=== PATIENT | male | born 1960 | race Caucasian/White ===

== ENCOUNTER 2024-08-24 13:32 | Inpatient (IN) | payer MEDICARE, SELFPAY ==
--- OUTSIDE RECORDS SUMMARY | 2012-03-09 08:50 | XMS_ITS | Encounter Summary ---
Author Organization [facility] Address [address] [place] [address] Care Team Providers Care Supply Chain Tech Name Role Phone Len Aguilera MD Primary Care Provider [phone] Encounter Details Date Type Department Care Team (Late st Contact Info) Description 03/09/2012 7:50 AM EST Hospital Encounter [facility] [address] [id number] Len Aguilera MD [address] [place] [address] Social History Tobacco Use Types Packs/Day Years Used Date Smoking Tobacco: Every Day Cigarettes 1 41.5 Started: 1983 Smokeless Tobacco: Never Alcohol Use Standard Drinks/Week Comments Not Currently 28 (1 standard drink = 0.6 oz pu re alcohol) Sex and Gender Information Value Date Recorded Sex Assigned at Not on file Legal Sex Male 10:06 AM EST Gender Identity Not on file Sexual Orientation Not on file COVID-19 Exposure Response Date Recorded In the last 10 days, have yo u been in contact with someone who was confirmed or suspected to have Coronavirus/COVID-19? No / Unsure 09/04/2021 11:38 AM EDT documented as of this encounter Plan of Treatment Not on file documented as of this encounter Visit Diagnoses Not on filedocumented in this encounter Additional Health Concerns Infection Onset Date Last Indicated Resolved Time C-diff Rule Out 09/06/2021 09/06/2021 09/06/2021 4 :07 PM EDT C-diff (Clostridium difficile) 09/06/2021 09/06/2021 documented as of this encounter Care Teams Supply Chain Tech Relationship Specialty Start Date End Date Len Aguilera MD [address] [place] [id number] PCP - General 03/07/12 01/17/21 documented as of this encounter
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
--- OUTSIDE RECORDS SUMMARY | 2020-12-17 04:56 | XMS_ITS | Continuity of Care Document ---
Author Organization [facility] Address [address] [place] [phone] Phone Care Team Providers Care Manager Of Project Management Name Role Phone Elinor Donovan Unavailable Unavailable [...] Diagnoses Date Provider Providers Copied on Encounter [facility], [address] [place] [address], [id number], [place] tel:[phone] [facility] No Information Jason Aldrich. [address] [place], [address], [place]. tel:[phone] OFFICE/OUTPAT IENT VISIT, [facility], [address], [place], [id number], [place] tel:[phone] JACKLYN Yrn interested in Vivitrol (chief complaint) Alcohol dependence [place] CARLOZ Aldrich. [address] [place], [address], [place]. tel:[phone] Family History Family Member Type Diagnosis Age At Onset Mother Problem hypertension Father Problem stroke Mother Problem heart disease Payers Payer name Insurance type Covered libertarian ID Authoriza tirosibel(s) Medicaid [facility] [id number] Social History Type Description Quantity Date Captured [...] being treated by Dr Montana, neurology, from [place] who has him on Keppra and Vimpat for seizures. reports that patient went to [facility] for detox for 3 days end of November. When released, talked to Chris martinez who refused to take patient due to the history of seizures. Was going to call [facility], but spoke to Dr Turpin who advised he start the Vivitrol program through [facility]. Had labs drawn there recently as well as in [facility]. reports that he had good liver enzymes.States [...] [facility]. Would prefer to use [place] instead for counseling services. Eugenia, [employer] Functional Status Date Functional Assessmen t No Information Instructions Date Instruction Additional Infor hammad 1. Initiate counseli ng2. Take oral naltrexone daily until Vivitrol ready, hold on day of injection. 3. No opioid use, stop/decrease alcohol use4. Await call from [facility] nurse, call if no communication within 2 weeks. 5. Continue f/u and care with PCP and neurology Related to Alcohol dependence Assessments Type Assessment Date No Information Patient Care Teams Name Effective Dates (start - stop) Status Members No Information
--- OUTSIDE RECORDS SUMMARY | 2024-03-19 07:00 | XMS_ITS ---
Author Organization [facility] Address [address] [place] [address] Care Team Providers Care Cna Hha Name Role Phone Glenna Hong Primary Care Provider [phone] Chey IgnacioKyungAlysa J Carlos [phone] REASON FOR VISIT 45 MIN PER KH Encounters Encounter Location Date Provider Diagnosis [facility] [address] [place] [address] 03/19/2024 Alysa Ignacio Plan Of Treatment Next Appt Details Provider Name:Glenna Hong, 0 08/30/2024 11:15:00 AM, [address] [place], [address], Progress Notes * SARAY CLEMONS ADOB: (63 yo M)Acc No.[id number]:03/19/2024 Patient: Soren SARAY CARRANZA Provider: Samuel Ignacio :1960 A ge:63 Y S ex:Male Date:03/19/2024 Address:[place] [address] [facility] Pcp:Glenna Hong Subjective: * Chief Complaints: * 1 . 45 MIN PER KH. * Medical History: Objective: * Vitals: Assessment: Plan: * Treatment: * Images: * Electronic signature of Eda elaine Mateus on 08/28/2024 at 12:36 PM EDT Sign off status: Pending * Provider: Samuel Ignacio Date: 0 03/19/2024 Generated for Jamie valentine/Onur/eTransmitting on: 0 08/28/2024 12:36 PM EDT
--- OUTSIDE RECORDS SUMMARY | 2024-07-31 06:33 | XMS_ITS | Encounter Summary ---
Author Organization [facility] Address [facility] [place] [address] Care Team Providers Care Hotbed Operator Name Role Phone Enoch Aguirre Unavailable [phone] Oswaldo Turpin Primary Care Provider [phone] Dione Montoya DO Unavailable Source Comments In the event this information is protected by the Federal Confidentiality of Alcohol and Drug AbusePatient Records regulations: The Federal rules restrict any use of the information to criminally investigate or prosecute any alcohol or drug abuse patient.[facility] Reason for Referral * MRI/CT (Routine) - New Request Specialty Diagnoses / Procedures Referred By Chato t Referred To Contact CT IMAGING Diagnoses Subarachnoid hemorrhage (HCC) Procedures CT BRAIN WO IVCON CT HEAD/BRAIN W/O CONTRAST MATERIAL Padmini Mccain PA-C [address] [place] [id number] Phone: tel: fax: CT IMAGING [facility] Referral ID Status Reason Start Date Expiration Date Visits Requested Visits Authorized [id number] New Request Auto-Generat ed Referral 08/18/2024 09/03/2025 1 1 Reason for Visit * Auth/Cert (Routine) Specialty Diagnoses / Procedures Referred By Chato t Referred To Contact Diagnoses Subarachnoid hemorrhage (HCC) Traumatic SAH Procedures [address] [place] [address] IP/OBS CARE HIGH MDM 75 MINUTES [facility] Intensive Care - SICU [address] [place] [address] Phone: tel: Referral ID Status Reason Start Date Expiration Date Visits Re quested Visits Authorized [id number] 1 1 Encounter Details Date Type Department Care Team (Latest Contact Info) Description 07/31/2024 6:33 AM EDT - 08/15/2024 3:53 PM EDT Hospital Encounter [facility] [address] [place] [id number] Dru Lorenzana MD [address] [place] [address] [place] [address] [place] [address] Traumatic SAH Discharge Disposition: Penitentiary Facility Social History Tobacco Use Types Packs/Day Years Used Date Smoking Tobacco: Every Day Cigarettes Smokeless Tobacco: Never Comments:1.0ppdx since 1986 Alcohol Use Standard Drinks/Week Comments Yes 8 (1 standard drink = 0.6 oz pure alcohol) occ during football games/cook outs [facility] Utilities Answer Date Recorded In the past 12 months has e [employer], gas, oil, or water [employer] threatened to shut off services in your home? No 08/02/2024 PHQ-2 Answer Date Recorded PHQ-2 score 5 05/16/2021 Hunger Vital Sign Answer Date Recorded Within the past 12 months, y ou worried that your food would run out before you got the money to buy more. Sometimes true Within the past 12 months, t he food you bought just didn't last and you didn't have money to get more. Never true PRAPARE - Transportation Answer Date Re corded In the past 12 months, has l ack of transportation kept you from medical appointments or from getting medications? No 07/06 In the past 12 months, has l ack of transportation kept you from meetings, work, or from getting things needed for daily living? No 08/02/2024 Housing Stability Vital Sign Answer Pascual e Recorded In the last 12 months, was t here a time when you were not able to pay the mortgage or rent on time? No 08/02/2024 In the past 12 months, how m any times have you moved where you were living? 0 08/02/2024 At any time in the past [facility] were you homeless or living in a assisted (including now)? No 08/02/2024 Area Deprivation Index Answer Date Moisés rded National Score (1-100), lower number is lower ri sk 55 07/28/2022 State Score (1-10), lower number is lower risk 3 07/28/2022 Data from: https://www.neighborhoodatlas.medicine.[facility].edu/. Last address used for calculation [address] 07/28/2022 Sex and Gender Information Value Date Recorded Sex Assigned at Male 03/30/2021 7:16 AM EST Legal Sex Male 1:02 PM EDT Gender Identity Male 03/30/2021 7:16 AM EST Sexual Orientation Straight 03/30/2021 7: 16 AM EST documented as of this encounter Last Filed Vital Signs Vital Sign Reading Time Taken Comments Blood Pressure 123/79 08/15/2024 11:22 AM EDT Pulse 113 08/15/2024 11:22 AM EDT Temperature 36.3 C (97.3 F) 08/15/2024 11:22 AM EDT Respiratory Rate 16 08/15/2024 11:22 AM EDT Oxygen Saturation 95% 08/15/2024 11:22 AM EDT Inhaled Oxygen Concentration - - Weight 60.3 kg (132 lb 15 oz) 08/02/2024 5:45 AM EDT Height 175 cm (5' 8.9 ) 07/31/2024 12:00 PM EDT Body Mass Index 19.69 07/31/2024 12:00 PM EDT documented in this encounter Functional Status * Are you deaf or do you have serious difficulty hearing? Answer Date of Assessment Author No 08/15/2024 3:50 PM EDT Kaylin Garcia RN * Are you blind or do you have serious difficulty seeing, even when wearing glasses? Answer Date of Assessment Author No 08/15/2024 3:50 PM EDT Kaylin Garcia RN * Do you have serious difficulty walking or climbing stairs? Answer Date of Assessment Author Yes 08/15/2024 3:50 PM EDT Kaylin Garcia RN * Do you have difficulty dressing or bathing? Answer Date of Assessment Author Yes 08/15/2024 3:50 PM EDT Kaylin Garcia RN * Because of a physical, mental, or emotional condition, do you have difficulty doing errands alone such as visiting a doctor's office or shopping? Answer Date of Assessment Author Yes 08/15/2024 3:50 PM EDT Kaylin Garcia RN documented as of this encounter Mental Status * Because of a physical, mental, or emotional condition, do you have serious difficulty concentrating, remembering, or making decisions? Answer Entry Date Author Yes 08/15/2024 3:50 PM EDT Kaylin Garcia RN documented in this encounter Discharge Summaries * Raiza Bates APRN.KENO WRITER - 08/15/2024 10:02 AM EDT Images from the original note were not included. DISCHARGE SUMMARY PATIENT NAME: Saray Corbin ADMISSION DATE: 07/31/2024 DISCHARGE DATE. August 15, 2024 ATTENDING PHYSICIAN: Dylon Ochoa MD Code Status: Full Code Highest Readmission Risk Score: 14 The 30 day readmissions risk score is derived from an internally validated risk model which evaluates patient level characteristics, utilization history, medication orders and lab results up until the day of discharge. Patients with a score of 39 or above are considered highest risk for readmission. Specific patient level drivers will be listed at the bottom of the summary. The 30 day readmissions risk score is derived from an internally validated risk model which evaluates patient level characteristics, utilization history, medication orders and lab results up until the day of discharge. Patients with a score of 40 or above are considered highest risk for readmission. Specific patient level drivers will be listed at the bottom of the summary. The Reason I was in the Hospital/Main Diagnosis: TBI Diagnosis: Active Hospital Problems Cystitis Traumatic encephalopathy Vocal cord dysfunction Hyponatremia Alcohol abuse Closed fracture of multiple ribs of right side Closed fracture of body of sternum Syncope and collapse Subarachnoid hemorrhage (HCC) Diabetes mellitus type 2, controlled, without complications (HCC) Anticoagulated On mechanically assisted ventilation (HCC) History of seizures Anxiety and depression Stroke (HCC) LUZ (obstructive sleep apnea) HLD (hyperlipidemia) Stress-induced cardiomyopathy Pharyngeal dysphagia Refeeding syndrome Severe protein-calorie malnutrition (HCC) Resolved Hospital Problems No resolved problems to display. Summary of What Happened When in the Hospital: You were admitted for TBI. 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 Pt reports she was getting up to let the dogs outside and when she came back in she found pt on the floor and unresponsive. Appears to have hit his head on the corner of a marble coffee table. + head strike,+ LOC about 5-7 minutes prior to calling EMS, - AC use. reports pt was stiff and unable to layhim flat to start CPR, although no clear loss of pulse. Pt was transported to an OSH ED, per reports was nodding his head to questions but was intubated for airway protection. Trauma imaging revealed: - Traumatic right SAH - Left lateral IVH - Bilateral occipital horn and 4th ventricle hemorrhage - Right maxillary sinus hematoma - Right elbow abrasion - Right temporal abrasion CTA was also completed with nothing acute per report. Pt was transferred to and admitted to [facility] further trauma management. NSGY was consulted and repeat head CT was completed which was stable. Pt given keppra 1g BID. After conversation with spouse, she reported pt has had numerous falls lately with dizziness and syncope. Fell about 2 weeks ago and thinks he fractured his ribs but refused to seek treatment. Further imaging ordered and revealed: - Acute vs subacute right 9-12th non displaced posterior rib fractures - Sub acute sternal fracture - Trace right pleural effusion - Incidental RUL 17 mm nodule Patient was seen at bedside this AM just after extubation. Pt is drowsy, opens eyes to name. Oriented x 1, moves all extremities but noted right arm and right leg weakness. Follows some commands, unable to assess facial droop. Tertiary complete without further traumatic injuries identified. BEM on without evidence of seizures. Awaiting syncope work up. Will need speech, PT and OT evals. Appreciate further NSGY recommendations. 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 Suspect mentation is going to be slow to improve/recover and not able to guess as to how much recovery he will gain after TBI Transitions of Care Critical Issues: NEW BASELINE FOR PATIENT: TBI , follow up ENT, Neurosurgery LABS AND PROCEDURES PENDING AT DISCHARGE: No pending results. OPERATIONS DURING HOSPITALIZATION: None PROCEDURES DURING HOSPITALIZATION: Echocardiogram, EKG, MRI, and corpak- MBSS Additional Provider to Provider Information: Principal Problem: Subarachnoid hemorrhage (HCC) (POA: Yes) Active Problems: Severe protein-calorie malnutrition (HCC) (POA: Yes) Pharyngeal dysphagia (POA: Yes) Stress-induced cardiomyopathy (POA: Yes) Refeeding syndrome (POA: Yes) History of seizures (POA: Yes) Stroke (HCC) (POA: Yes) Anxiety and depression (POA: Yes) LUZ (obstructive sleep apnea) (POA: Yes) HLD (hyperlipidemia) (POA: Yes) Diabetes mellitus type 2, controlled, without complications (HCC) (POA: Unknown) Anticoagulated (POA: Unknown) On mechanically assisted ventilation (HCC) (POA: Unknown) Closed fracture of multiple ribs of right side (POA: Yes) Closed fracture of body of sternum (POA: Yes) Syncope and collapse (POA: Yes) Alcohol abuse (POA: Yes) Vocal cord dysfunction (POA: Unknown) Hyponatremia (POA: Unknown) Traumatic encephalopathy (POA: Clinically Undetermined) Cystitis (POA: No) Resolved Problems: * No resolved hospital problems. * Consulting Teams During Hospitalization: Treatment Team: Attending Provider: Dylon Ochoa MD Consulting: Susanna Lima MD Consulting: Keith Euceda MD Consulting: Karlos Dumont MD Additional Health Information I Need to Know After I Leave the Hospital: corpak tube feeds FOLLOW-UP APPOINTMENTS ALREADY SCHEDULED WITH A [facility] PROVIDER Future Appointments Date Time Provider Department Center 08/26/2024 2:15 PM Keith Euceda MD [facility] 08/28/2024 12:00 PM Padmini Mccain PA-C [facility] Discharge Information Row Name ED to Hosp-Admission (Current) from 07/31/2024 in [facility] x 123 ADDITIONAL FOLLOW-UP APPOINTMENT(S) REQUESTED ENT, Neurosrgery DISCHARGE MEDICATION: Medication List START taking these medications acetaminophen 325 mg tablet Commonly known as: TYLENOL 2 tablets by ORAL/FEEDING TUBE route every 6 hours as needed for pain. folic acid 1 mg tablet 1 tablet once daily. heparin 5,000 unit/mL injection Inject 1 mL subcutaneously every 12 hours for 7 days. insulin lispro 100 unit/mL injection Commonly known as: HumaLOG ADMINISTER CORRECTIONAL INSULIN REGARDLESS OF MEAL OR NUTRITION INTAKE Scale 2 If Blood Glucose (mg/dL) is: Less than 110 Give 0 units 111-150 Give 0 units 151-200 Give 2 units 201-250 Give 4 units 251-300 Give 6 units 301-350 Give 8 units 351-400 Give 10 units Greater than 400 Give 10 units and Notify Provider Notify provider if 2 consecutive blood glucose values in the previous 24 hours are greater than 250mg/dL and there have been no changes to the insulin regimen in the previous 24 hours. metoprolol tartrate (short acting) 25 mg tablet Commonly known as: LOPRESSOR 1 tablet by ORAL/FEEDING TUBE route every 12 hours. ondansetron 4 mg tablet Commonly known as: ZOFRAN 1 tablet by CORPAK route every 6 hours as needed. oxyCODONE IR 5 mg immediate release tablet Commonly known as: ROXICODONE 0.5 tablets by ORAL/FEEDING TUBE route every 6 hours as needed for up to 5 days. thiamine 100 mg tablet Commonly known as: VITAMIN B1 1 tablet by ORAL/FEEDING TUBE route once daily. CHANGE how you take these medications QUEtiapine 50 mg tablet Commonly known as: SEROquel 1 tablet by ORAL/FEEDING TUBE route daily at bedtime. What changed: medication strength how much to take how to take this when to take this additional instructions CONTINUE taking these medications dapagliflozin propanediol 10 mg tablet Commonly known as: FARXIGA INV NITROGLYCERIN SUBLINGUAL 0.4 mg SL TABLET (IRB 23-702) pantoprazole DR 40 mg tablet Commonly known as: PROTONIX rosuvastatin 20 mg tablet Commonly known as: CRESTOR sacubitril-valsartan 24-26 mg tablet Commonly known as: ENTRESTO SLOW-MAG ORAL spironolactone 25 mg tablet Commonly known as: ALDACTONE STOP taking these medications clopidogrel 75 mg tablet Commonly known as: PLAVIX Cyclobenzap and Irritant Cntr Irr2 10 mg Kit escitalopram oxalate 10 mg tablet Commonly known as: LEXAPRO escitalopram oxalate 20 mg tablet Commonly known as: LEXAPRO fluconazole 100 mg tablet Commonly known as: DIFLUCAN melatonin 10 mg Tab metoprolol succinate ER 50 mg 24 hr tablet Commonly known as: TOPROL XL pregabalin 75 mg capsule Commonly known as: LYRICA sildenafil 100 mg tablet Commonly known as: VIAGRA SUMAtriptan 50 mg tablet Commonly known as: IMITREX tamsulosin 0.4 mg Commonly known as: FLOMAX traMADol 50 mg tablet Commonly known as: ULTRAM Discharge Physical Exam: VITAL SIGNS: BP 109/68 Pulse 89 Temp 36.4 ??C (97.5 ??F) (Oral) Resp 16 Ht 175 cm (5' 8.9 ) Wt 60.3 kg (132 lb 15 oz) SpO2 100% BMI 19.69 kg/m?? Genl: Appears age appropriate. Restless without purposeful-appearing mobility of extremities. Head/Face: Normocephalic. Resolving right temporal abrasion Eyes: PERRLA. EOMI. Sclera not icteric ENMT: External auditory canals clear. Oropharynx is clear. Nasopharynx is clear. Neck: No mid-line masses. No bruits. No LAD. C-spine non-tender. Back: T & L Spine non-tender, no step-offs noted. No flank tenderness. Resp: Breathing is easy and unlabored. No adventitious lung sounds. Equal air entry throughout all lobes. No stridor, retractions, or accessory muscle use. CVS: RRR. No murmur, rub, gallop. 2+ pulses at RA, DP, PT bilat. GI: Abdomen is soft, non-tender, not distended. Bowel sounds normal. Right nare corpak in place MSK: Extremities without clubbing, cyanosis, edema. Normal ROM x 4. Skin: Warm and dry. No lesions of concern. Not jaundiced. Resolving right elbow abrasion Neuro: A&Ox 2-3, Following commands. Thought process is slow, but seems much more lucid than previous days. GCS 14 (E4, V4, M6 - -[address] confusion). Psych: AMS changes INFORMATION PROVIDED TO PATIENT: WOUND/SURGICAL SITE CARE: None The patient's risk for 30-day readmission is determined using the following contributing factors: The patient's risk for 30-day readmission is determined using the following contributing factors: Predictive Model Details 11% (Low) Factor Value Calculated 08/15/2024 05:23 20% Hospital Unit [facility] READMISSION RISK Model -15% Andrew Scale 13 -13% [facility] 13% Discharge Disposition [facility] 10% Diagnosis Count 34 -9% Admissions (365d) 1 -9% ED visits (365d) 0 -8% Creatinine (Min) 0.45 7% Facility [facility] 7% Sodium (Avg) 134.17 Plan of care discussed with: Provider, RN, Patient. I have performed the [id number] and relevant services for a total of >30 minutes. SIGNATURE: Raiza Bates APRN.MODESTA DATE: August 15, 2024 TIME: 10:02 AM Cosigned by Dylon Ochoa MD at 08/15/2024 11:46 AM EDT Associated attestation - Dylon Ochoa MD - 08/15/2024 11:46 AM EDT Dylon Ochoa MD documented in this encounter Discharge Instructions * Discharge Instr - Other Orders* Raiza Bates, MARIZA.KENO WRITER - 08/04/2024 8:26 AM EDT Neurosurgery Discharge Instructions A follow up CT Brain has been ordered for you. Please call to schedule in 2 weeks orbefore your follow up appointment. What is Subdural Hematoma (SDH)? A subdural hematoma (s?b?du?r???l h???m??t???m?) is a collection of blood that accumulates inside the skull but outside the brain. The bleeding occurs within the layers of tissue that surround the brain. It collects under the brain's tough outer wrapper known as the dura. The blood is then described as being sub (under) -dural. Who is at high risk to develop SDH? People with the following conditions have an increased risk for having a subdural hematoma: ? Old age - this is the leading risk factor for having SDH's ? Taking a daily aspirin or anticoagulation therapy ? Blood clotting disorder ? Alcohol abuse ? Frequent falls ? History of repeated head injuries ? Having an intracranial shunt What are the symptoms of SDH? Acute subdural hematomas often follow head trauma forceful enough to temporarily knock someone unconscious. Other associated symptoms include: ? Severe headaches ? Dizziness ? Changes in vision, speech, or mental clarity ? Seizures ? Nausea and vomiting ? Weakness on one side of the body What is the outlook (prognosis)? Outcomes are difficult to predict because they depends on many factors such as the size, location, and the patient's health before the injury. The factor that all the best outcomes have in common is time. Early detection and intervention are essential for limiting lasting damages. This is why it isimportant to call your doctor after a fall. How can I prevent or avoid SDH damage? Preventing falls and head injuries is the most effective way to prevent SDH and the damage it causes. Using safety equipment such as seat belts, cycling helmets and walking canes greatly helps to reduce the risk. Older people in particular must be careful to avoid falls. If you experience a head injury, be sure to have a doctor evaluate it promptly. This is especially important if there was a loss of consciousness or if you have any of the risk factors listed on pages 2-3. If you personally receive a significant blow to the head, ask someone keep an eye on you. Even if you feel fine initially, symptoms may develop later. Also, the impact may cause memory loss, Please follow up with your Neurosurgeon office Dr Ewing in 2 weeks. call for an appointment Primary Contact Information Phone Fax E-mail Address [phone] Not available Not available [address] [place] [phone] Specialties Neurosurgery, Spine [place] Stop taking your Plavix , You will be told by Neurosurgery when to resume at your post discharge appointment documented in this encounter Medications at Time of Discharge QUEtiapine (SEROQUEL) 50 mg tablet 1 tablet by ORAL/FEEDING TUBE route daily at bedtime. 5 acetaminophen (TYLENOL) 325 mg tablet 2 tablets by ORAL/FEEDING TUBE route every 6 hours as needed for pain. 5 folic acid 1 mg tablet 1 tablet once daily. 02 5 insulin lispro 100 unit/mL injection ADMINISTER CORRECTIONAL INSULIN REGARDLESS OF MEAL OR NUTRITION INTAKE Scale 2 If Blood Glucose (mg/dL) is: Less than 110 Give 0 units 111-150 Give 0 units 151-200 Give 2 units 201-250 Give 4 units 251-300 Give 6 units 301-350 Give 8 units 351-400 Give 10 units Greater than 400 Give 10 units and Notify Provider Notify provider if 2 consecutive blood glucose values in the previous 24 hours are greater than 250 mg/dL and there have been no changes to the insulin regimen in the previous 24 hours. 5 metoprolol tartrate, short acting, (LOPRESSOR) 25 mg tablet 1 tablet by ORAL/FEEDING TUBE route every 12 hours. 180 tablet 5 ondansetron (ZOFRAN) 4 mg tablet 1 tablet by CORPAK route every 6 hours as needed. 5 thiamine (VITAMIN B1) 100 mg tablet 1 tablet by ORAL/FEEDING TUBE route once daily. 5 dapagliflozin propanediol (FARXIGA) 10 mg tablet Take 10 mg by mouth daily with breakfast. INV NITROGLYCERIN 0.4 MG SUBLINGUAL TABLET (IRB 23-702) Dissolve 0.4 mg under the tongue one time only. Place tablet under tongue and allow to dissolve; do not chew or break. For Investigational Drug Use Only. PI: Teena Carrillo MD. rosuvastatin (CRESTOR) 20 mg tablet Take 20 mg by mouth once daily. sacubitril-valsart an (ENTRESTO) 24-26 mg tablet Take 1 tablet by mouth two times a day. magnesium chloride (SLOW-MAG ORAL) Take 1 % by mouth as needed. spironolactone (ALDACTONE) 25 mg tablet Take 12.5 mg by mouth once daily. Take 0.5 tablets (12.5 mg) by mouth once daily pantoprazole DR (PROTONIX) 40 mg tablet Take 40 mg by mouth once daily. 1 heparin 5,000 unit/mL injection Inject 1 mL subcutaneously every 12 hours for 7 days. 14 mL 5 08/22/19 25 oxyCODONE IR (ROXICODONE) 5 mg immediate release tablet 0.5 tablets by ORAL/FEEDING TUBE route every 6 hours as needed for up to 5 days. 0 5 08/20/19 25 documented as of this encounter Progress Notes * Sabra Gray, JOI-SANDING MACHINE OPERATOR OR TENDER - 08/15/2024 2:22 PM EDT Speech Therapy Treatment SERVICE DATE: 08/15/2024 SERVICE TIME: 1404 to 1416 ROOM: [place] [id number] IMPRESSION Patient seen for follow-up treatment targeting oropharyngeal dysphagia. Evidence of: Oropharyngeal dysphagia An elevated risk for aspiration: Yes Swallow Efficiency: Impaired RECOMMENDATIONS Diet Recommendations NPO with alternative means of nutrition Patient may have ice chips for comfort if cleared by physician under the following conditions: Aggressive oral care prior to ice chips (brush teeth, tongue, roof of mouth, gums, etc) Ice chips given under supervision of RN/PCNA Administer 1 ice chip at a time Swallow Strategy Recommendations Rigid Oral Hygiene Nursing Recommendations Routine Rigid Oral Hygiene, Allowance for ice chips Recommended Consults ENT (recommended from MBSS 08/05/24) Response to Therapy Interventions: Good participation in activities, Confusion interferes with education, Requires additional time/repetition, Needs frequent redirection Rehabilitation Precautions: Aspiration Precautions, Dysphagia, Cognitive Linguistics Deficits DISCHARGE RECOMMENDATIONS Recommended Discharge Disposition: Subacute/SNF Recommended Discharge Disposition Comments: dysphagia Tx Justification for Recommended Discharge Disposition: Continued skilled SANDING MACHINE OPERATOR OR TENDER care recommended after hospital discharge for:, Patient requires daily, facility- based rehabilitation from at least one discipline due to:, dysphagia requiring frequent assessment and diet modification, ongoing instrumental swallow assessment needs CURRENT HOSPITAL COURSE Patient was transferred from [facility] as a Trauma II following a recent fall at home wherehe hit his right evangelical on a countertop with +LOC. Patient presents wtih a traumatic subarachnoid hemorrhage. 08/01: Brain MRI: Small focus of diffusion restriction posterior LEFT aspect of the patsy as above. Stable intraventricular blood products. 08/01: Chest CT: 1. Acute versus subacute posterior RIGHT 9th-12th rib fxs. 2. Subacute appearing transverse sternum fracture. 3. Trace RIGHT pleural effusion. 4. Mild centrilobular emphysema. 5. Incidental 17 mm groundglass nodule in the RIGHT upper lobe. Recommend follow-up chest CT in 6-12 months. 6. Hepatic steatosis. 08/05: dobhoff tube in place;08/[address], plans for PEG tomorrow; 08/08 bilateral mitts; CT chest notes resolving thrombus, mildly improved hemorrhage; 08/15 Planning for discharge today. Reason for Speech Therapy Consult: Swallow evaluation 2* patient failing the RN swallow screen and due to recent intubation 07/31-08/01/24. In addition, cognitive evaluation recommended 2* patient suffering a recent fall with +LOC and Dx of a subarachnoid hemorrhage. Relevant Past Medical History: Oropharyngeal Dysphagia, HTN, Alcohol Abuse, Anemia, Stroke, COPD, CHF, Pancreatitis, Adult respiratory distress syndrome, Arthritis, CAD, Depression, Anxiety, GERD, Seizure, s/p Tracheostomy (2022), Stroke with residual lower weakness, LUZ HOME ENVIRONMENT / PRIOR FUNCTIONAL LEVEL Prior Functional Level: Required Assistance Patient Lives With: Spouse Assistance Required With: Transportation, Medication Management, Meals Assistance Available: Unable to determine at this time Prior Swallowing Function/Diet Textures: Regular Consistency, Thin Liquids IDDSI Level 0 SUBJECTIVE Patient participated well in treatment. Patient terminated session early due to wishing to rest. THERAPY DIAGNOSIS Dysphagia, oropharyngeal phase TREATMENT INTERVENTIONS Dysphagia Therapy (77012) Skilled Treatment Time (minutes): 12 TRAINING AND EDUCATION PROVIDED IN Caregiver Education, Dietary Consistencies, Dysphagia Management, Results and Recommendations of Session, Oral-Motor Strengthening / Range of Motion THERAPEUTIC SKILLS USED Education on role of discipline / importance of activity, Instruction in self- monitoring / self-assessment, Modified behavior for increased success, Verbal cuing OBJECTIVE Current Status Oral Hygiene: Tongue / cheek coating, Oral Health Assessment Tool (OHAT) Dentition: Miscellaneous Missing Teeth Current Feeding Method: Small Bore Feeding Tube Current Diet Textures: NPO with alternative means of nutrition/hydration/medication Current Level Of Communication: Verbal Current Management Of Secretions: Able to self-manage, Strong cough Oral Motor Exam: Within Functional Limits Except Facial Symmetry Impaired: Left Labial Assessment: Generalized weakness, Reduced sensory awareness, Xerostomia Labial ROM Impaired: Left Labial Strength Impaired: Left Lingual Assessment: Generalized weakness, Xerostomia Lingual ROM Impaired: Left Lingual Strength Impaired: Bilateral Jaw Range of Motion: Limited ROM Palatal Elevation: (uanble to assess 2* poor jaw ROM) SWALLOW ASSESSMENT Position Of Patient During Assessment: Upright In Bed Feeding Method: SANDING MACHINE OPERATOR OR TENDER Fed Patient Consistencies Presented: Ice Chips Ice Chips Pharyngeal Phase: Throat Clearing- Immediate Pharyngeal Exercises: Effortful Swallow Effortful Swallow Number of Repetitions/Cuein repetitions with verbal cues. Encouraged patient to complete more repetitions, however he wished to rest. GOALS SWALLOWING: Patient / Caregiver will demonstrate knowledge of taught compensatory strategies and dietary consistency recommendations to optimize functional swallow function without overt clinical signs and symptoms of aspiration or dysphagia Speech Rehab Potential: Fair Fair Rehab Potential Due To: Decreased motivation, Learning impairments/ poor understanding of deficits Progress Toward Goals: Progressing slower than expected Patient /Caregiver Goals: Patient Unable To State/Report, Family Not Available At Bedside ACUTE CARE TREATMENT PLAN ST Frequency: 3 Times Per Week Treatment Interventions: Dysphagia Management Plan of Care Developed with: Patient, Nurse Plan for next visit: Continue per POC SIGNATURE: ANGELO ScalesSANDING MACHINE OPERATOR OR TENDER PATIENT NAME: Saray Corbin DATE: August 15, 2024 TIME: 2:22 PM * Teena Andrews OT/L - 08/15/2024 11:05 AM EDT Occupational Therapy Treatment Summary SERVICE DATE: 08/15/2024 SERVICE TIME: 1046 to 1056 ROOM: [place] [address] OT 6 Clicks Score: 10 DISCHARGE RECOMMENDATIONS Subacute/SNF Recommended Discharge Disposition Comments: pt most likely unable to participate in 3 hours of therapy per day Recommended Discharge Disposition Due to: Functional deficits requiring ongoing therapy service prior to discharge home., ADL impairment Anticipated Discharge Needs: Undetermined ASSESSMENT Response to Therapy Interventions: Improved Tolerance for Activity, Slow Progression with ADLs/IADLs Pt with increased ability to follow commands, converse with OT and with resulting increased participation in ADLs. PRECAUTIONS Fall Risk, Lines/Tubes/Drains, Impulsive with Activity, Seizure, Other: See Comments, Bed/Chair Alarm NPO CURRENT HOSPITAL COURSE 63 year old male with a who initially presented s/p mechanical fall with head strike on granite counter top with + LOC. Traumatic right SAH. Closed fracture of multiple ribs of right side - Subacute 9-12th posterior rib fractures. 08/05: MBSS Relevant Past Medical History: Alcohol abuse last drink 04/23/2022, Tobacco abuse, anxiety disorder,Depressive disorder, Seizure disorder, Current pancreatitis with complicating pseudocyst, hx strokewith residual LUE/LLE weakness HOME LIVING Patient Lives With: Spouse Assistance Available: 24-Hour Entry To Home: No Stairs Number Of Stairs To Bed/Bath: 0 (pt stays on first floor) Tub/Shower Type: Tub shower, shower chair, grab bars Laundry: spouse completes- 1st floor Equipment Owned: Walker- Wheeled, Wheelchair- Manual, Cane, Program Review Director PRIOR FUNCTIONAL LEVEL Within Functional Limits, Required Assistance Assistance Required With: Shopping, Laundry, Cleaning, Transportation pt is a questionable historian due to confusion; pt reporting IND with ADLs, spouse completes IADLs, -driving, ambulates with a rollator, hx of falls per chart Baseline Cognition: Oriented to situation, Oriented to time, Oriented to place, Oriented to self SUBJECTIVE pt agreeable to OT from bed COGNITION Communication Deficits: (pt able to respond to questions 08/12/24) Orientation Deficits: Confused, Not oriented to Time, Not oriented to Situation Responsiveness: Awake Follows Commands: 1-step Commands, Cueing Needed Cueing to Follow Commands: Minimum Memory Deficits: Short Term, Recall of Recent Events Executive Function Deficits: (Grossly impaired and appears to be worse compared to OT eval on 08/03.) Cog 6 Start of Session Total Points (Max Score = 24): 11 (08/08/24) Cog 6 End of Session Total Points (Max Score = 24): 12 (08/08/24) THERAPY DIAGNOSIS Decreased activities of daily living (ADL), Reduced mobility-other, Muscle Weakness (generalized), Unsteadiness on feet, General symptoms and signs-other, Difficulty walking-musculoskeletal, Signs and Symptoms Involving Cognitive Functions and Awareness, Lack of coordination-other TREATMENT INTERVENTIONS Self Custodial Management (65620) Timed Code Treatment (minutes): 10 Skilled Treatment Time (minutes): 10 TRAINING & EDUCATION PROVIDED Activity Adaptation/Compensatory Strategies, Discharge Planning, Grooming Tasks, Lower Extremity Bathing, Lower Extremity Dressing, Role of Occupational Therapy, Safety/Judgment, Upper Extremity Bathing, Upper Extremity Dressing THERAPEUTIC SKILLS USED Activity Dosing, Cues for Sequencing/Proper Technique for Activity, Cuing Tactile, Cuing Verbal, Cuing Visual, Management of Critical Lines, Tubes and/or Drains, Physical Assist, Therapeutic Use of Self FUNCTIONAL STATUS Activities of Daily Living Assist Level Additional Information Feeding Total Assistance, Additional Information tube feed Grooming Moderate Assistance, Additional Information hair combing (max tangles), teeth brushing from bed Bathing Upper Body Moderate Assistance Bathing Lower Body Maximal Assistance Dressing Upper Body Minimal Assistance [facility] gown Dressing Lower Body Total Assistance Toileting Total Assistance Mobility Assist Level Additional Information Bed Mobility Rolling: (Deferred any bed mobility due to safety concerns with poor command follow.) Supine To Sit: (pt declined 08/15/24) Sit To Supine: Maximal Assistance Sit to Stand Additional Information (unable to attempt, pt dizzy sitting EOB) Stand to Sit Bed to Chair Toilet/Commode Shower Functional Mobility GOALS Patient will demonstrate progress to optimize self-care activities, cognitive and/or coping to maximize function upon discharge. Rehab Potential: Good Good Rehab Potential Due To: Current objective clinical presentation Progress Toward Goals: Progressing slower than expected ACUTE CARE TREATMENT PLAN OT Frequency: 2 Times Per Week Treatment Interventions: Education, Self Care/Home Management, Energy Conservation Training, Joint Mobility, Strengthening, Functional Mobility Training, Balance Training, Neuromuscular Re-education Plan for Next Visit: Bathing Training, Dressing Training, Grooming Training, Sitting Balance, Sitting Tolerance SIGNATURE: KIERRA Stubbs PATIENT NAME: Saray Corbin DATE: August 15, 2024 TIME: 11:05 AM * Nicci Suazo, LOAD TALLIER - 08/15/2024 9:58 AM EDT CARE MANAGEMENT DISCHARGE NOTE SERVICE DATE: August 15, 2024 SERVICE TIME: 9:58 AM Admission Date: 07/31/2024 LOS: 15 days Discharge Arrangement Discharge Arrangement: [facility] Facility Was an expedited discharge program used?: No Provider [phone] Caregiver Assessment Caregiver is ready, willing and able to meet the patient's needs as recommended by the inter-professional team: Yes Name of Caregiver: [facility] Transportation Arrangements Transportation Arrangements: Ambulance Transportation Agency and Phone #:: [facility] [phone] Date of Trip: 08/15/24 Time of Trip: 1530 Type of Service: BLS Non-emergency Is Patient Medicaid Pending?: No Anesthesiology Teacher Location: [place] Destination: [facility] Financial Care Management Responsibility: None Handoff Communication: Handoff to: Primary Care Physician Primary Care Physician Name/Phone: Oswaldo Turpin/[phone] Additional Information: Patient medically cleared for discharge at this time and precert is approved. Patient will transfer to [facility] via [facility] trip #[id number] today at 1530; RN notified. CM sent dc order and AVS to facility via [facility]. Discharge packet is on Patient's chart. RN reports she will send available corpak supplies with Patient, per facilities request. LUISA called Patient's spouse Christine @[phone] and left a voicemail to update her on the transporttime for today. Discharge Information Row Name ED to Hosp-Admission (Current) from 07/31/2024 in [phone] IMM Follow Up Copy Given: Yes Copy given to:: Patient Barge Hand Barge Hand Name/Relationship: spouse Method: By Phone SIGNATURE: RUTH Jack PATIENT NAME: Saray Corbin DATE: August 15, 2024 TIME: 9:58 AM * Elaina Talavera, PT, DPT - 08/14/2024 3:51 PM EDT Physical Therapy Treatment Summary SERVICE DATE: 08/14/2024 SERVICE TIME: 1523 to 1538 ROOM: [place] [address] PT 6 Clicks Score: 10 DISCHARGE RECOMMENDATIONS Subacute/SNF Recommended Discharge Disposition Due to: Balance deficits, Functional status decline, Requires multiple therapy disciplines, Patient requires active, intensive rehabilitation by multiple therapy disciplines. Anticipate the patient will tolerate 3 hours of therapy per day. Anticipated Discharge Needs: Undetermined ASSESSMENT Response to Therapy Interventions: Cognitive Deficits, Improved Tolerance for Activity Pt with increased alertness and command following throughout session. AO x self and place. Pt able to jewels socks without assistance while in supine prior to sitting EOB. Tolerated brief EOB but required therapist assistance. VC for technique and posture awareness. Fatigues quickly. Would benefit from continued skilled PT while in house and at SNF to maxmize functional indep and strength. PRECAUTIONS Fall Risk, Lines/Tubes/Drains, Impulsive with Activity, Seizure, Other: See Comments, Bed/Chair Alarm NPO CURRENT HOSPITAL COURSE 63 year old male with a who initially presented s/p mechanical fall with head strike on granite counter top with + LOC. Traumatic right SAH. Closed fracture of multiple ribs of right side - Subacute 9-12th posterior rib fractures. 08/05: MBSS Relevant Past Medical History: Alcohol abuse last drink 04/23/2022, Tobacco abuse, anxiety disorder,Depressive disorder, Seizure disorder, Current pancreatitis with complicating pseudocyst, hx strokewith residual LUE/LLE weakness HOME LIVING Patient Lives With: Spouse Assistance Available: 24-Hour Entry To Home: No Stairs Number Of Stairs To Bed/Bath: 0 (pt stays on first floor) Tub/Shower Type: Tub shower, shower chair, grab bars Laundry: spouse completes- 1st floor Equipment Owned: Walker- Wheeled, Wheelchair- Manual, Cane, Program Review Director PRIOR FUNCTIONAL LEVEL Within Functional Limits, Required Assistance Assistance Required With: Shopping, Laundry, Cleaning, Transportation pt is a questionable historian due to confusion; pt reporting IND with ADLs, spouse completes IADLs, -driving, ambulates with a rollator, hx of falls per chart SUBJECTIVE Pt agreeable to PT session. THERAPY DIAGNOSIS Reduced mobility-other, Muscle Weakness (generalized) TREATMENT INTERVENTIONS Therapeutic Activity (52065) Timed Code Treatment (minutes): 15 Skilled Treatment Time (minutes): 15 TRAINING & EDUCATION PROVIDED Anatomy and Impact on Deficits, Bed Mobility, Benefits of In-Hospital Mobility, Discharge Planning,Energy Conservation, Positioning, Precautions/Restrictions, Role of Physical Therapy, Treatment Protocol, Sitting Balance THERAPEUTIC SKILLS USED Activity Dosing, Assessment of Tolerance Including Vitals Response to Activity, Bed in Chair Position, Cues for Sequencing/Proper Technique for Activity, Cuing Tactile, Cuing Verbal, Management of Critical Lines, Tubes and/or Drains, Physical Assist FUNCTIONAL STATUS Bed Mobility Rolling: Contact Guard Assistance Supine To Sit: Minimal Assistance Sit to Supine: Moderate Assistance Scooting: Maximal Assistance Transfers Bed to Chair Gait Stairs GOALS Patient will demonstrate progress to optimize functional mobility, maximize activity tolerance and endurance to maximize function upon discharge. Rehab Potential: Good Progress Toward Goals: Progressing as expected ACUTE CARE TREATMENT PLAN PT Frequency: 3 Times Per Week Treatment Interventions: Education, Energy Conservation Training, Strengthening, Functional Mobility Training, Balance Training, Neuromuscular Re-education, Pain Management Plan for Next Visit: Bed Mobility, Chair Transfer Training, Fall Prevention, Sit to Stand Transfers, Sitting Balance, Standing Balance, Standing Tolerance SIGNATURE: Elaina Talavera PT, DPT PATIENT NAME: Saray Corbin DATE: August 14, 2024 TIME: 3:51 PM * Nicci Suazo LSW - 08/14/2024 3:11 PM EDT CARE MANAGEMENT PROGRESS NOTE SERVICE DATE: 08/14/2024 SERVICE TIME: 3:12 PM LOS: 14 days Patient's precert for [facility] was submitted on 08/13. On 08/14, [id number] review was requested. [id number] was completed by DISK OPERATOR on 08/14, and the insurance company requested updated PT/OT evaluations that display Patient working with the therapists. DISK OPERATOR was informed that if updated PT/OT evals are not submitted by 08/15 at 9am, precert will be denied. CM called the therapy office and requested PT/OT evaluate Patient again by 9am on 08/15. MMT trip to facility placed on will call. Discharge packet placed on chart. 7000 completed. Patientready for discharge pending precert and being restraint-free for 24 hours. SIGNATURE: RUTH Jack PATIENT NAME: Saray Corbin DATE: August 14, 2024 TIME: 3:12 PM * Post, JOI Vasquez-SANDING MACHINE OPERATOR OR TENDER - 08/14/2024 12:52 PM EDT Speech Therapy Treatment SERVICE DATE: 08/14/2024 SERVICE TIME: 1252 to 1313 ROOM: [place] [address] IMPRESSION Evidence of: Oropharyngeal dysphagia (per recent MBSS results) An elevated risk for aspiration: Yes Swallow Efficiency: Impaired Patient was seen for dysphagia Tx. See below for additional results and recommendations of today's session: RECOMMENDATIONS Diet Recommendations NPO with alternative means of nutrition May have small, single crushed ice chips for comfort if cleared by the physician under the following conditions: 1. Aggressive oral care prior to ice chips (gums, teeth, tongue, roof of mouth, etc.) 2. Ice chips given under supervision of the RN/PCNA 3. No more than 5-10 ice chips per sitting up to 3-5 times per day 4. 1 Ice chip given at a time Swallow Strategy Recommendations Rigid Oral Hygiene Nursing Recommendations Routine Rigid Oral Hygiene, Allowance for ice chips Recommended Consults ENT (recommended from MBSS 08/05/24) Response to Therapy Interventions: Good participation in activities, Confusion interferes with education, Requires additional time/repetition, Needs frequent redirection Rehabilitation Precautions: Aspiration Precautions, Dysphagia, Cognitive Linguistics Deficits DISCHARGE RECOMMENDATIONS Recommended Discharge Disposition: Subacute/SNF Recommended Discharge Disposition Comments: dysphagia Tx Justification for Recommended Discharge Disposition: Continued skilled SANDING MACHINE OPERATOR OR TENDER care recommended after hospital discharge for:, Patient requires daily, facility- based rehabilitation from at least one discipline due to:, dysphagia requiring frequent assessment and diet modification, ongoing instrumental swallow assessment needs CURRENT HOSPITAL COURSE Patient was transferred from [facility] as a Trauma II following a recent fall at home wherehe hit his right evangelical on a countertop with +LOC. Patient presents wtih a traumatic subarachnoid hemorrhage. 08/01: Brain MRI: Small focus of diffusion restriction posterior LEFT aspect of the patsy as above. Stable intraventricular blood products. 08/01: Chest CT: 1. Acute versus subacute posterior RIGHT 9th-12th rib fxs. 2. Subacute appearing transverse sternum fracture. 3. Trace RIGHT pleural effusion. 4. Mild centrilobular emphysema. 5. Incidental 17 mm groundglass nodule in the RIGHT upper lobe. Recommend follow-up chest CT in 6-12 months. 6. Hepatic steatosis. 08/05: dobhoff tube in place; 08/[address], plans for PEG tomorrow; 08/08 bilateral mitts; CT chest notes resolving thrombus,mildly improved hemorrhage; Reason for Speech Therapy Consult: Swallow evaluation 2* patient failing the RN swallow screen and due to recent intubation 07/31-08/01/24. In addition, cognitive evaluation recommended 2* patient suffering a recent fall with +LOC and Dx of a subarachnoid hemorrhage. Relevant Past Medical History: Oropharyngeal Dysphagia, HTN, Alcohol Abuse, Anemia, Stroke, COPD, CHF, Pancreatitis, Adult respiratory distress syndrome, Arthritis, CAD, Depression, Anxiety, GERD, Seizure, s/p Tracheostomy (2022), Stroke with residual lower weakness, LUZ HOME ENVIRONMENT / PRIOR FUNCTIONAL LEVEL Prior Functional Level: Required Assistance Patient Lives With: Spouse Assistance Required With: Transportation, Medication Management, Meals Assistance Available: Unable to determine at this time Prior Swallowing Function/Diet Textures: Regular Consistency, Thin Liquids IDDSI Level 0 SUBJECTIVE Patient was seen for dysphagia Tx. Patient presented with restlessness at times throughout the session, yet able to fully participate throughout, following simple, one step commands. THERAPY DIAGNOSIS Dysphagia, oropharyngeal phase TREATMENT INTERVENTIONS Dysphagia Therapy (46912) Skilled Treatment Time (minutes): 21 TRAINING AND EDUCATION PROVIDED IN Caregiver Education, Dietary Consistencies, Dysphagia Management, Results and Recommendations of Session, Oral-Motor Strengthening / Range of Motion THERAPEUTIC SKILLS USED Education on role of discipline / importance of activity, Demonstration / modeling of taught behavior / exercise, Analyze current use of strategies taught, Teach-back for confirmation of education provided, Verbal cuing, Visual cuing, Modified behavior for increased success, Repetitive task learning OBJECTIVE Current Status Oral Hygiene: Tongue / cheek coating (oral care completed prior to initiation of ice chips) Dentition: Retains Natural Dentition, Miscellaneous Missing Teeth Current Feeding Method: Small Bore Feeding Tube Current Diet Textures: NPO with alternative means of nutrition/hydration/medication Current Level Of Communication: Verbal Current Management Of Secretions: (minimal verbalizations) Oral Motor Exam: Within Functional Limits Except Facial Symmetry Impaired: Left Labial Assessment: Generalized weakness, Reduced sensory awareness, Xerostomia Labial ROM Impaired: Left Labial Strength Impaired: Left Lingual Assessment: Generalized weakness, Xerostomia Lingual ROM Impaired: Left Lingual Strength Impaired: Bilateral Jaw Range of Motion: Limited ROM Palatal Elevation: (uanble to assess 2* poor jaw ROM) SPEECH/VOICE/LANGUAGE Vocal Quality: Hoarse, Rough, Reduced Vocal Intensity SWALLOW ASSESSMENT Position Of Patient During Assessment: Upright In Bed Feeding Method: SANDING MACHINE OPERATOR OR TENDER Fed Patient Consistencies Presented: Ice Chips Ice Chips Oral Phase: Bolus Holding Ice Chips Pharyngeal Phase: Cough- Delayed (on 2/5 ice chips) Compensatory Strategies Utilized During Assessment: Check oral cavity for remaining food, Sit upright 90 degrees for all PO, Small Bite/Sip, Voice checks, Throat clear, reswallow Oral Exercises: Other Exercises (Lingual Glides) Lingual Lateralization Number of Repetitions/Cueing: attempted, yet patient was unable to complete d/t cogntive deficits Pharyngeal Exercises: Effortful Swallow Effortful Swallow Number of Repetitions/Cuein repetitions/maximum verbal/visual cues GOALS SWALLOWING: Patient / Caregiver will demonstrate knowledge of taught compensatory strategies and dietary consistency recommendations to optimize functional swallow function without overt clinical signs and symptoms of aspiration or dysphagia Speech Rehab Potential: Fair Fair Rehab Potential Due To: Multiple co- morbidities, Learning impairments/ poor understanding of deficits, Respiratory deficits Progress Toward Goals: Progressing slower than expected Patient /Caregiver Goals: Resume PO Intake, Go to Rehab ACUTE CARE TREATMENT PLAN ST Frequency: 3 Times Per Week Treatment Interventions: Dysphagia Management Plan of Care Developed with: Patient, Nurse Plan for next visit: Continue per POC SIGNATURE: Christina Mosqueda CCC-SANDING MACHINE OPERATOR OR TENDER PATIENT NAME: Saray Corbin DATE: August 14, 2024 TIME: 2:28 PM * Raiza Bates, AUTO CLEANER.KENO WRITER - 08/14/2024 9:47 AM EDT TRAUMA PROGRESS NOTE SERVICE DATE: 08/14/2024 SERVICE TIME: 9:48 AM Subjective HISTORY (LAST 24 HOURS): pt seen this am , much more alert . Pt was able to read my badge and pronounce my name w/o issue. Unsure of year when asked. Mitts placed on pt around 6 am today for pulling at IV. Pt leaves the corpak alone. Ok to d/c IV as pt no longer requires IV meds or gtts. and d/c Mitts . pt has remained sitter free as well. medically cleared for discharge to SNF when precert arrives Current Facility-Administered Medications Medication Dose Route Frequency ondansetron 4 mg tab(s) (ZOFRAN) 4 mg ORAL q 6 H PRN Or ondansetron (PF) 4 mg injection (ZOFRAN) 4 mg INTRAVENOUS q 6 H PRN dextrose 40 % 15 g 15 g ORAL PRN Or glucagon 1 mg injection 1 mg INTRAMUSCULAR PRN Or dextrose 10% iv bolus 12.5 g INTRAVENOUS PRN hydrALAZINE 10 mg injection (APRESOLINE) 10 mg INTRAVENOUS q 6 H PRN NaCl 0.9% iv flush bag 20 mL INTRAVENOUS PRN heparin 5,000 Units injection 5,000 Units SUBCUTANEOUS q 12 H insulin lispro injection (rapid acting) (ADMElog) SUBCUTANEOUS q 6 H rosuvastatin 20 mg tab(s) (CRESTOR) 20 mg NASOGASTRIC DAILY folic acid 1 mg tab(s) 1 mg ORAL/FEEDING TUBE DAILY spironolactone 12.5 mg tab(s) (ALDACTONE) 12.5 mg ORAL DAILY thiamine 100 mg tab(s) (VITAMIN B1) 100 mg ORAL/FEEDING TUBE DAILY acetaminophen 650 mg tab(s) (TYLENOL) 650 mg ORAL/FEEDING TUBE q 6 H PRN oxyCODONE IR 2.5 mg tab(s) (ROXICODONE) 2.5 mg ORAL/FEEDING TUBE q 6 H PRN QUEtiapine 50 mg tab(s) (SEROquel) 50 mg ORAL/FEEDING TUBE AT BEDTIME sacubitril-valsartan 24-26 mg 1 tablet (ENTRESTO) 1 tablet ORAL/FEEDING TUBE BID metoprolol tartrate (short acting) 25 mg tab(s) (LOPRESSOR) 25 mg ORAL/FEEDING TUBE q 12 H pantoprazole 40 mg oral liquid (PROTONIX) 40 mg ORAL/FEEDING TUBE DAILY (6 AM) Objective PHYSICAL EXAM: Temp (24hrs), Av.6 ??C (97.9 ??F), Min:36.4 ??C (97.5 ??F), Max:36.7 ??C (98.1 ??F) BP 111/73 Pulse 124 Temp (Src) 97.9 (Oral) Resp 16 Ht 5' 8.898 (1.75m) Wt 132 lb 15 oz (60.3kg) SpO2 95% BMI 19.69 kg/(m^2). O2 Therapy: Room Air Genl: Appears age appropriate. Restless without purposeful-appearing mobility of extremities. Head/Face: Normocephalic. Resolving right temporal abrasion Eyes: PERRLA. EOMI. Sclera not icteric ENMT: External auditory canals clear. Oropharynx is clear. Nasopharynx is clear. Neck: No mid-line masses. No bruits. No LAD. C-spine non-tender. Back: T & L Spine non-tender, no step-offs noted. No flank tenderness. Resp: Breathing is easy and unlabored. No adventitious lung sounds. Equal air entry throughout all lobes. No stridor, retractions, or accessory muscle use. CVS: RRR. No murmur, rub, gallop. 2+ pulses at RA, DP, PT bilat. GI: Abdomen is soft, non-tender, not distended. Bowel sounds normal. Right nare corpak in place MSK: Extremities without clubbing, cyanosis, edema. Normal ROM x 4. Skin: Warm and dry. No lesions of concern. Not jaundiced. Resolving right elbow abrasion Neuro: A&Ox 2-3, Following commands. Thought process is slow, but seems much more lucid than previous days. GCS 14 (E4, V4, M6 - -1 [address] place confusion). Psych: AMS changes LABS/IMAGING (pertinent to today's evaulation): Imaging reviewed today: Labs: Recent Labs 08/14/24 0505 08/13/24 0610 08/12/24 0730 08/12/24 0645 WBC 9.15 7.92 -- 8.98 HB 8.7* 9.0* -- 8.4* HCT 29.2* 30.3* -- 27.4* PLT 881* 877* -- 767* NA 138 139 136 -- K 3.8 3.9 4.4 -- CHLOR 101 101 101 -- CO2 25 23 23 -- CREAT 0.55* 0.50* 0.48* -- P 4.0 4.7 4.3 -- BUN 24 21 20 -- GLUC 169* 117* 141* -- TPROT -- -- 7.8 -- ALB -- -- 3.9 -- MG 2.1 1.6* 1.9 -- CA 9.4 9.7 9.4 -- ALKPHOS -- -- 157* -- TBILI -- -- 0.2 -- AST -- -- 29 -- ALT -- -- 30 -- Assessment/Plan ACTIVE PROBLEM LIST Severe Protein-Calorie Malnutrition (Hcc) Nicotine use disorder, F17.2 Ards (Adult Respiratory Distress Syndrome) (Hcc) Status Post Tracheostomy (Hcc) Pleural Effusion Transudative Pancreatic Insufficiency (Hcc) Pharyngeal Dysphagia C. Difficile Diarrhea Iron Deficiency Anemia Secondary to Inadequate Dietary Iron Intake Anemia of Chronic Disease Stress-Induced Cardiomyopathy Refeeding Syndrome Dysphagia History of Seizures Stroke (Hcc) Anxiety and Depression Copd (Chronic Obstructive Pulmonary Disease) (Hcc) Luz (Obstructive Sleep Apnea) Htn (Hypertension) Chf (Congestive Heart Failure) (Hcc) Cad (Coronary Artery Disease) Hld (Hyperlipidemia) Subarachnoid Hemorrhage (Hcc) Diabetes Mellitus Type 2, Controlled, Without Complications (Hcc) Anticoagulated On Mechanically Assisted Ventilation (Hcc) Closed Fracture of Multiple Ribs of Right Side Closed Fracture of Body of Sternum Syncope and Collapse Alcohol Abuse Vocal Cord Dysfunction Hyponatremia Traumatic Encephalopathy Cystitis ASSESSMENT/PLAN: Assessment & Plan Subarachnoid hemorrhage (HCC) - Neurosurgery consulted - Non operative management - Neuro checks Q 4 - Repeat CT brain: Stable - MRI 08/01: Small focus of diffusion restriction posterior LEFT aspect of the patsy - BEM DC 08/02 as no seizure activity noted. Moderate diffuse encephalopathy - 20 min BEM 08/06: negative - SBP goal: < 140 - DVT ppx: SQH - 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 - Seizure prophylaxis: keppra - PT/OT: AR vs SNF - MM pain control - 08/08 repeat CTH stable Pharyngeal dysphagia - SANDING MACHINE OPERATOR OR TENDER eval: MBS Monday - Corpak placed 08/03 - Nutrition consult - NPO - Continue home PPI - MBSS 08/05- complete- vocal cord dysfunction - ENT consult Dr Euceda discussed via text- will set up out pt follow up - PEG planned possibly for 08/13 no peg . keep corpak Stress-induced cardiomyopathy - Most recent EF ~ 43% - Continue home entresto, aldactone and metop - Repeat echo: LV moderately dilated with Lvef 55%, left atrial cavity severely dilated, mild MVR, and mild pHTN. Compared to prior exam from 05/2022 LV fx improved. History of seizures - No home AEDs - Will continue keppra 1g BID - BEM DC 08/02 as no seizure activity noted. 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 Compared to prior exam from 05/2022 LV fx improved. - Tele Syncope and collapse - Unclear etiology of fall - Reports multiple falls and dizziness at home per - Echo: LV moderately dilated with Lvef 55%, left atrial cavity severely dilated, mild MVR, and mild pHTN. Compared to prior exam from 05/2022 LV fx improved. - Carotids: Bilateral carotid artery duplex with approximately 0-29% stenosis bilaterally. - Tele Alcohol abuse -Patient reported to be heavy drinker per family -Started on phenobarb taper 08/02, now completed -CIWA Severe protein-calorie malnutrition (HCC) - Nutrition consult Refeeding syndrome - Daily labs - Replete electrolytes as needed - Slow TF advancement, will keep at 20ml/hr today and advance in AM. Goal is 50ml/hr - Vocal cord dysfunction - ENT consult - Spoke with Dr Euceda via text - He is to send Message to ENT scheduling team for out pt follow up Hyponatremia - Nephrology following. 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 FWF 50cc Q8h, continue salt tabs, no need for fluid restriction as not taking PO - Daily labs - Stabilized Cystitis - UA with moderate bacteria, culture with mixed microbiota - Ceftriaxone for 5 days (finish 08/13) VTE Prophylaxis: VTE prophylaxis appropriate, SQH Diet: NPO PT/OT: SNF Dispo: GOLDY I spent a total of 35 minutes on the date of the service which included preparing to see the patient, [id number] patient care, completing clinical documentation, obtaining and/or reviewing separately obtained history, performing a medically appropriate examination, counseling and educating the pat ient/family/caregiver, ordering medications, tests, or procedures, communicating with other HCPs (not separately reported), independently interpreting results (not separately reported), communicatingresults to the patient/family/caregiver, and care coordination (not separately reported). SIGNATURE: Raiza Bates APRN.CNP PATIENT NAME: Saray Corbin DATE: August 14, 2024 TIME: 9:47 AM * Nicci Suazo LSW - 08/14/2024 8:35 AM EDT CARE MANAGEMENT PROGRESS NOTE SERVICE DATE: 08/14/2024 SERVICE TIME: 8:36 AM LOS: 14 days Precert for [facility] is still pending at this time, Ref #[id number]. 7000 completedand sent to facility. Patient will need to be restraint- free for 24 hours prior to discharge. MMT trip to facility placed on will call. Discharge packet placed on chart. ADDENDUM 08/14 @10:07AM: Per RN, Patient's mitts were removed at 10am today. SIGNATURE: RUTH Jack PATIENT NAME: Saray Corbin DATE: August 14, 2024 TIME: 8:35 AM * Nicci Suazo LSW - 08/13/2024 11:38 AM EDT CARE MANAGEMENT PROGRESS NOTE SERVICE DATE: 08/13/2024 SERVICE TIME: 11:38 AM LOS: 13 days CM called Patient's Christine @[phone] to discuss SNF choice. [facility] is Patient's only accepting facility, and Christine reports that this is their FOC. Per [facility], they are able to accept Patient with his Corpak. They have requested that [facility] send extra syringes and tubing for the Corpak upon discharge. CM to notify RN prior to discharge. CM tasked [facility] to start precert. Patient will have to be sitter-free for 24 hours prior to discharge. Signed attestation is needed for 7000 completion. MMT trip to facility placed on will call. Discharge packet placed on chart. SIGNATURE: RUTH Jack PATIENT NAME: Saray Corbin DATE: August 13, 2024 TIME: 11:38 AM * Christina Mosqueda CCC-SANDING MACHINE OPERATOR OR TENDER - 08/13/2024 9:33 AM EDT Speech Therapy Treatment SERVICE DATE: 08/13/2024 SERVICE TIME: 932 to 954 ROOM: [place] [id number] IMPRESSION Evidence of: Oropharyngeal dysphagia (per recent MBSS) An elevated risk for aspiration: Yes Swallow Efficiency: Impaired Dysphagia Tx completed today. See below for additional results and recommendations: RECOMMENDATIONS Diet Recommendations NPO with alternative means of nutrition May have small, single crushed ice chips for comfort if cleared by the physician under the following conditions: 1. Aggressive oral care prior to ice chips (gums, teeth, tongue, roof of mouth, etc.) 2. Ice chips given under supervision of the RN/PCNA 3. No more than 5-10 ice chips per sitting up to 3-5 times per day 4. 1 Ice chip given at a time Swallow Strategy Recommendations Rigid Oral Hygiene Nursing Recommendations Routine Rigid Oral Hygiene, Allowance for ice chips Instrumental Swallow Study Recommendations (continue to reassess swallow function and readiness forrepeat MBSS or a FEES prior to diet advancement) Recommended Consults ENT (recommended from MBSS 08/05/24) Response to Therapy Interventions: Good participation in activities, Confusion interferes with education, Requires additional time/repetition, Needs frequent redirection Rehabilitation Precautions: Aspiration Precautions, Dysphagia, Cognitive Linguistics Deficits DISCHARGE RECOMMENDATIONS Recommended Discharge Disposition: Subacute/SNF Recommended Discharge Disposition Comments: dysphagia Tx Justification for Recommended Discharge Disposition: Continued skilled SANDING MACHINE OPERATOR OR TENDER care recommended after hospital discharge for:, Patient requires daily, facility- based rehabilitation from at least one discipline due to:, dysphagia requiring frequent assessment and diet modification, ongoing instrumental swallow assessment needs CURRENT HOSPITAL COURSE Patient was transferred from [facility] as a Trauma II following a recent fall at home wherehe hit his right evangelical on a countertop with +LOC. Patient presents wtih a traumatic subarachnoid hemorrhage. 08/01: Brain MRI: Small focus of diffusion restriction posterior LEFT aspect of the patsy as above. Stable intraventricular blood products. 08/01: Chest CT: 1. Acute versus subacute posterior RIGHT 9th-12th rib fxs. 2. Subacute appearing transverse sternum fracture. 3. Trace RIGHT pleural effusion. 4. Mild centrilobular emphysema. 5. Incidental 17 mm groundglass nodule in the RIGHT upper lobe. Recommend follow-up chest CT in 6-12 months. 6. Hepatic steatosis. 08/05: dobhoff tube in place; 08/[address], plans for PEG tomorrow; 08/08 bilateral mitts; CT chest notes resolving thrombus,mildly improved hemorrhage; Reason for Speech Therapy Consult: Swallow evaluation 2* patient failing the RN swallow screen and due to recent intubation 07/31-08/01/24. In addition, cognitive evaluation recommended 2* patient suffering a recent fall with +LOC and Dx of a subarachnoid hemorrhage. Relevant Past Medical History: Oropharyngeal Dysphagia, HTN, Alcohol Abuse, Anemia, Stroke, COPD, CHF, Pancreatitis, Adult respiratory distress syndrome, Arthritis, CAD, Depression, Anxiety, GERD, Seizure, s/p Tracheostomy (2022), Stroke with residual lower weakness, LUZ HOME ENVIRONMENT / PRIOR FUNCTIONAL LEVEL Prior Functional Level: Required Assistance Patient Lives With: Spouse Assistance Required With: Transportation, Medication Management, Meals Assistance Available: Unable to determine at this time Prior Swallowing Function/Diet Textures: Regular Consistency, Thin Liquids IDDSI Level 0 SUBJECTIVE Patient was alert for dysphagia Tx with bilateral mitts donned. Patient participated in session andfollowed simple, 1 step commands. Hoarse vocal quality observed. THERAPY DIAGNOSIS Dysphagia, oropharyngeal phase TREATMENT INTERVENTIONS Dysphagia Therapy (21379) Skilled Treatment Time (minutes): 22 TRAINING AND EDUCATION PROVIDED IN Caregiver Education, Dysphagia Management, Swallowing Strategies, Results and Recommendations of Session THERAPEUTIC SKILLS USED Education on role of discipline / importance of activity, Analyze current use of strategies taught,Demonstration / modeling of taught behavior / exercise, Modified behavior for increased success, Repetitive task learning, Teach-back for confirmation of education provided, Verbal cuing, Visual cuing OBJECTIVE Current Status Oral Hygiene: Tongue / cheek coating (SANDING MACHINE OPERATOR OR TENDER provided oral care using suction toothbrush prior to initiation of PO trials.) Dentition: Retains Natural Dentition, Miscellaneous Missing Teeth Current Feeding Method: Small Bore Feeding Tube Current Diet Textures: NPO with alternative means of nutrition/hydration/medication Current Level Of Communication: Verbal Current Management Of Secretions: (minimal verbalizations) Oral Motor Exam: Within Functional Limits Except Facial Symmetry Impaired: Left Labial Assessment: Generalized weakness, Reduced sensory awareness, Xerostomia Labial ROM Impaired: Left Labial Strength Impaired: Left Lingual Assessment: Generalized weakness, Xerostomia Lingual ROM Impaired: Left Lingual Strength Impaired: Bilateral Jaw Range of Motion: Limited ROM Palatal Elevation: (uanble to assess 2* poor jaw ROM) SPEECH/VOICE/LANGUAGE Vocal Quality: Reduced Vocal Intensity, Hoarse, Rough SWALLOW ASSESSMENT Position Of Patient During Assessment: Upright In Bed (restless in bed) Feeding Method: SANDING MACHINE OPERATOR OR TENDER Fed Patient Consistencies Presented: Ice Chips, Thin Liquids IDDSI Level 0, Pureed Solids IDDSI Level 4 Ice Chips Oral Phase: (improved since 08/12 session) Ice Chips Pharyngeal Phase: Suspect Reduced Range of Hyoid/Laryngeal Elevation, Cough- Delayed Thin Liquids Oral Phase: Suspected Reduced Oral Control, Impaired A-P Transfer Thin Liquids Pharyngeal Phase: Suspect Delayed Swallow, Suspect Reduced Range of Hyoid/Laryngeal Elevation, Throat Clearing- Delayed Pureed Solids Oral Phase: (WFL) Pureed Solids Pharyngeal Phase: Multiple Swallows (4 swallows-clear vocal quality post swallows) Response to Swallow Interventions: SANDING MACHINE OPERATOR OR TENDER provided oral care via suction toothbrushes prior to initiation of PO trials. Ice chips provided and patient demonstrated delayed coughing on 2/6 ice chips withindependent immediate cough post cough. Compensatory Strategies Utilized During Assessment: Check oral cavity for remaining food, Ensure heightened awareness to completion of the swallow, Feed / Eat at a slow rate, Sit upright 90 degrees for all PO, Small Bite/Sip, Throat clear, reswallow, Voice checks Oral Exercises: Lingual Lateralization Lingual Lateralization Number of Repetitions/Cuein/10 with minimal verbal and visual cues Pharyngeal Exercises: Effortful Swallow Effortful Swallow Number of Repetitions/Cueing: Patient able to follow instructions to complete 8 reps with moderate verbal and visual cues. GOALS SWALLOWING: Patient / Caregiver will demonstrate knowledge of taught compensatory strategies and dietary consistency recommendations to optimize functional swallow function without overt clinical signs and symptoms of aspiration or dysphagia Speech Rehab Potential: Fair Good Rehab Potential Due To: Current objective clinical presentation Fair Rehab Potential Due To: Multiple co- morbidities, Learning impairments/ poor understanding of deficits Progress Toward Goals: Not progressing toward goals Patient /Caregiver Goals: Resume PO Intake, Go to Rehab ACUTE CARE TREATMENT PLAN ST Frequency: 3 Times Per Week Treatment Interventions: Dysphagia Management Plan of Care Developed with: Patient, Nurse Plan for next visit: Continue per POC SIGNATURE: ANGELO SoSANDING MACHINE OPERATOR OR TENDER PATIENT NAME: Saray Corbin DATE: August 13, 2024 TIME: 10:13 AM * Amadeo Anaya APRN.KENO WRITER - 08/13/2024 7:24 AM EDT TRAUMA PROGRESS NOTE SERVICE DATE: 08/13/2024 SERVICE TIME: 829 Subjective HISTORY (LAST 24 HOURS): No acute events overnight. Examined in bed this AM, is able to say his name, is making purposeful kelin contact, and follows commands. Speech is slow and is confused to date/time, but did know he was in a hospital. No focal deficits noted, but deconditioned. Awaiting possiblePEG tube this afternoon in preparation for discharge to SNF, although may possibly find a facility that is able to take the corpak. Continues to undergo speech evaluation. Medically cleared for discharge to SNF, just awaiting final plan for enteral access. Current Facility-Administered Medications Medication Dose Route Frequency ondansetron 4 mg tab(s) (ZOFRAN) 4 mg ORAL q 6 H PRN Or ondansetron (PF) 4 mg injection (ZOFRAN) 4 mg INTRAVENOUS q 6 H PRN dextrose 40 % 15 g 15 g ORAL PRN Or glucagon 1 mg injection 1 mg INTRAMUSCULAR PRN Or dextrose 10% iv bolus 12.5 g INTRAVENOUS PRN hydrALAZINE 10 mg injection (APRESOLINE) 10 mg INTRAVENOUS q 6 H PRN NaCl 0.9% iv flush bag 20 mL INTRAVENOUS PRN fentaNYL 50 mcg/mL 25 mcg injection (SUBLIMAZE) 25 mcg INTRAVENOUS q 4 H PRN labetalol 5 mg injection (NORMODYNE) 5 mg INTRAVENOUS q 2 H PRN heparin 5,000 Units injection 5,000 Units SUBCUTANEOUS q 12 H diazePAM 5 mg injection (VALIUM) 5 mg INTRAVENOUS q 2 H PRN Or diazePAM 10 mg injection (VALIUM) 10 mg INTRAVENOUS q 2 H PRN insulin lispro injection (rapid acting) (ADMElog) SUBCUTANEOUS q 6 H rosuvastatin 20 mg tab(s) (CRESTOR) 20 mg NASOGASTRIC DAILY folic acid 1 mg tab(s) 1 mg ORAL/FEEDING TUBE DAILY spironolactone 12.5 mg tab(s) (ALDACTONE) 12.5 mg ORAL DAILY cefTRIAXone iv piggyback 1 g in dextrose (iso-osmotic) 50 mL (ROCEPHIN) 1 g INTRAVENOUS q 24 H urea 15 g oral powder (URE-NA) 15 g ORAL/FEEDING TUBE DAILY thiamine 100 mg tab(s) (VITAMIN B1) 100 mg ORAL/FEEDING TUBE DAILY acetaminophen 650 mg tab(s) (TYLENOL) 650 mg ORAL/FEEDING TUBE q 6 H PRN oxyCODONE IR 2.5 mg tab(s) (ROXICODONE) 2.5 mg ORAL/FEEDING TUBE q 6 H PRN QUEtiapine 50 mg tab(s) (SEROquel) 50 mg ORAL/FEEDING TUBE AT BEDTIME sacubitril-valsartan 24-26 mg 1 tablet (ENTRESTO) 1 tablet ORAL/FEEDING TUBE BID metoprolol tartrate (short acting) 25 mg tab(s) (LOPRESSOR) 25 mg ORAL/FEEDING TUBE q 12 H pantoprazole 40 mg oral liquid (PROTONIX) 40 mg ORAL/FEEDING TUBE DAILY (6 AM) sodium chloride 1 g soluble tab(s) 1 g ORAL/FEEDING TUBE BID Objective PHYSICAL EXAM: Temp (24hrs), Av.3 ??C (97.4 ??F), Min:36.3 ??C (97.3 ??F), Max:36.5 ??C (97.7 ??F) BP 132/83 Pulse 96 Temp (Src) 97.3 (Axillary) Resp 16 Ht 5' 8.898 (1.75m) Wt 132 lb 15 oz (60.3kg) SpO2 97% BMI 19.69 kg/(m^2). O2 Therapy: Room Air Genl: Appears age appropriate. Restless without purposeful-appearing mobility of extremities. Head/Face: Normocephalic. Resolving right temporal abrasion Eyes: PERRLA. EOMI. Sclera not icteric ENMT: External auditory canals clear. Oropharynx is clear. Nasopharynx is clear. Neck: No mid-line masses. No bruits. No LAD. C-spine non-tender. Back: T & L Spine non-tender, no step-offs noted. No flank tenderness. Resp: Breathing is easy and unlabored. No adventitious lung sounds. Equal air entry throughout all lobes. No stridor, retractions, or accessory muscle use. CVS: RRR. No murmur, rub, gallop. 2+ pulses at RA, DP, PT bilat. GI: Abdomen is soft, non-tender, not distended. Bowel sounds normal. Right nare corpak in place MSK: Extremities without clubbing, cyanosis, edema. Normal ROM x 4. Skin: Warm and dry. No lesions of concern. Not jaundiced. Resolving right elbow abrasion Neuro: A&Ox 2-3, Following commands. Thought process is slow, but seems much more lucid than previous days. GCS 14 (E4, V4, M6 - -[address] confusion). Psych: AMS changes LABS/IMAGING (pertinent to today's evaulation): Imaging reviewed today: Labs: Recent Labs 08/13/24 0610 08/12/24 0730 08/12/24 0645 08/11/24 0513 WBC 7.92 -- 8.98 9.21 HB 9.0* -- 8.4* 9.0* HCT 30.3* -- 27.4* 31.3* PLT 877* -- 767* 610* NA -- 136 -- -- K -- 4.4 -- -- CHLOR -- 101 -- -- CO2 -- 23 -- -- CREAT -- 0.48* -- -- P -- 4.3 -- -- BUN -- 20 -- -- GLUC -- 141* -- -- TPROT -- 7.8 -- -- ALB -- 3.9 -- -- MG -- 1.9 -- -- CA -- 9.4 -- -- ALKPHOS -- 157* -- -- TBILI -- 0.2 -- -- AST -- 29 -- -- ALT -- 30 -- -- Assessment/Plan ACTIVE PROBLEM LIST Severe Protein-Calorie Malnutrition (Hcc) Nicotine use disorder, F17.2 Ards (Adult Respiratory Distress Syndrome) ([facility]) Status Post Tracheostomy (Hcc) Pleural Effusion Transudative Pancreatic Insufficiency (Hcc) Pharyngeal Dysphagia C. Difficile Diarrhea Iron Deficiency Anemia Secondary to Inadequate Dietary Iron Intake Anemia of Chronic Disease Stress-Induced Cardiomyopathy Refeeding Syndrome Dysphagia History of Seizures Stroke (Hcc) Anxiety and Depression Copd (Chronic Obstructive Pulmonary Disease) (Hcc) Luz (Obstructive Sleep Apnea) Htn (Hypertension) Chf (Congestive Heart Failure) (Hcc) Cad (Coronary Artery Disease) Hld (Hyperlipidemia) Subarachnoid Hemorrhage (Hcc) Diabetes Mellitus Type 2, Controlled, Without Complications (Hcc) Anticoagulated On Mechanically Assisted Ventilation (Hcc) Closed Fracture of Multiple Ribs of Right Side Closed Fracture of Body of Sternum Syncope and Collapse Alcohol Abuse Vocal Cord Dysfunction Hyponatremia Traumatic Encephalopathy ASSESSMENT/PLAN: Assessment & Plan Subarachnoid hemorrhage (HCC) - Neurosurgery consulted - Non operative management - Neuro checks Q 4 - Repeat CT brain: Stable - MRI 08/01: Small focus of diffusion restriction posterior LEFT aspect of the patsy - BEM DC 08/02 as no seizure activity noted. Moderate diffuse encephalopathy - 20 min BEM 08/06: negative - SBP goal: < 140 - DVT ppx: SQH - 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 - Seizure prophylaxis: keppra - PT/OT: AR vs SNF - MM pain control - 08/08 repeat CTH stable Pharyngeal dysphagia - SANDING MACHINE OPERATOR OR TENDER eval: MBS Monday - Corpak placed 08/03 - Nutrition consult - NPO - Continue home PPI - MBSS 08/05- complete- vocal cord dysfunction - ENT consult Dr Euceda discussed via text- will set up out pt follow up - PEG planned possibly for 08/13 Stress-induced cardiomyopathy - Most recent EF ~ 43% - Continue home entresto, aldactone and metop - Repeat echo: LV moderately dilated with Lvef 55%, left atrial cavity severely dilated, mild MVR, and mild pHTN. Compared to prior exam from 05/2022 LV fx improved. History of seizures - No home AEDs - Will continue keppra 1g BID - BEM DC 08/02 as no seizure activity noted. Moderate diffuse encephalopathy Anxiety and depression - Holding home lexapro and seroquel - Initially held d/t lack of enteral access, now held d/t prolonged qtc - Repeat EKG prn - Resume seroquel - Holding lexapro d/t QTC Diabetes mellitus type 2, controlled, without complications (HCC) - Hold Farxiga - SSI - Accu checks AC/HS Anticoagulated - No current AC use - Only on plavix - Given TXA at OSH - Continue to monitor platelets Stroke (HCC) - 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 - Hold home Plavix LUZ (obstructive sleep apnea) - Does not wear home cpap - May need to initiate once extubated - Tele HLD (hyperlipidemia) - Continue home statin Closed fracture of multiple ribs of right side - Subacute 9-12th posterior rib fractures - No pain on exam - Stable RA - MM pain control - Aggressive IS Closed fracture of body of sternum - Subacute in nature - Echo: LV moderately dilated with Lvef 55%, left atrial cavity severely dilated, mild MVR, and mild pHTN. Compared to prior exam from 05/2022 LV fx improved. - Tele Syncope and collapse - Unclear etiology of fall - Reports multiple falls and dizziness at home per - Echo: LV moderately dilated with Lvef 55%, left atrial cavity severely dilated, mild MVR, and mild pHTN. Compared to prior exam from 05/2022 LV fx improved. - Carotids: Bilateral carotid artery duplex with approximately 0-29% stenosis bilaterally. - Tele Alcohol abuse -Patient reported to be heavy drinker per family -Started on phenobarb taper 08/02, now completed -CIWA Severe protein-calorie malnutrition (HCC) - Nutrition consult Refeeding syndrome - Daily labs - Replete electrolytes as needed - Slow TF advancement, will keep at 20ml/hr today and advance in AM. Goal is 50ml/hr - PEG planned for 08/13 Vocal cord dysfunction - ENT consult - Spoke with Dr Euceda via text - He is to send Message to ENT scheduling team for out pt follow up Hyponatremia - Nephrology following. 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 FWF 50cc Q8h, continue salt tabs, no need for fluid restriction as not taking PO - Daily labs - Stabilized Cystitis - UA with moderate bacteria, culture with mixed microbiota - Ceftriaxone for 5 days (finish 08/13) VTE Prophylaxis: VTE prophylaxis appropriate, SQH Diet: NPO PT/OT: SNF Dispo: RNF I spent a total of 35 minutes on the date of the service which included preparing to see the patient, [id number] patient care, completing clinical documentation, obtaining and/or reviewing separately obtained history, performing a medically appropriate examination, counseling and educating the pat ient/family/caregiver, ordering medications, tests, or procedures, communicating with other HCPs (not separately reported), independently interpreting results (not separately reported), communicatingresults to the patient/family/caregiver, and care coordination (not separately reported). SIGNATURE: Amadeo Anaya APRN.MODESTA PATIENT NAME: Saray Corbin DATE: August 13, 2024 TIME: 7:24 AM * Sabra Don, JOI-SANDING MACHINE OPERATOR OR TENDER - 08/12/2024 2:48 PM EDT Speech Therapy Treatment SERVICE DATE: 08/12/2024 SERVICE TIME: 1448 to 1505 ROOM: [place] [address] IMPRESSION: Patient seen for treatment targeting oropharyngeal dysphagia. Patient with poor oral health, increase in frequency of oral hygiene is recommended. Evidence of: Oropharyngeal dysphagia An elevated risk for aspiration: Yes Swallow Efficiency: Preserved RECOMMENDATIONS Diet Recommendations NPO with alternative means of nutrition Patient may have ice chips for comfort if cleared by physician under the following conditions: Aggressive oral care prior to ice chips (brush teeth, tongue, roof of mouth, gums, etc) Ice chips given under supervision of RN/PCNA Administer 1 ice chip at a time Swallow Strategy Recommendations Rigid Oral Hygiene Nursing Recommendations Routine Rigid Oral Hygiene, Allowance for ice chips Recommended Consults ENT (recommended from MBSS 08/05/24) Response to Therapy Interventions: Fatigue, Confusion interferes with education, Limited participation, Requires additional time/repetition, Needs frequent redirection Rehabilitation Precautions: Aspiration Precautions, Dysphagia, Cognitive Linguistics Deficits DISCHARGE RECOMMENDATIONS Recommended Discharge Disposition: Subacute/SNF Recommended Discharge Disposition Comments: dysphagia Tx; cognitive evaluation when able to fully participate Justification for Recommended Discharge Disposition: Continued skilled SANDING MACHINE OPERATOR OR TENDER care recommended after hospital discharge for:, Patient requires daily, facility- based rehabilitation from at least one discipline due to:, dysphagia requiring frequent assessment and diet modification, ongoing instrumental swallow assessment needs CURRENT HOSPITAL COURSE Patient was transferred from [facility] as a Trauma II following a recent fall at home wherehe hit his right evangelical on a countertop with +LOC. Patient presents wtih a traumatic subarachnoid hemorrhage. 08/01: Brain MRI: Small focus of diffusion restriction posterior LEFT aspect of the patsy as above. Stable intraventricular blood products. 08/01: Chest CT: 1. Acute versus subacute posterior RIGHT 9th-12th rib fxs. 2. Subacute appearing transverse sternum fracture. 3. Trace RIGHT pleural effusion. 4. Mild centrilobular emphysema. 5. Incidental 17 mm groundglass nodule in the RIGHT upper lobe. Recommend follow-up chest CT in 6-12 months. 6. Hepatic steatosis. 08/05: dobhoff tube in place; 08/[address], plans for PEG tomorrow; 08/08 bilateral mitts; CT chest notes resolving thrombus,mildly improved hemorrhage; Reason for Speech Therapy Consult: Swallow evaluation 2* patient failing the RN swallow screen and due to recent intubation 07/31-08/01/24. In addition, cognitive evaluation recommended 2* patient suffering a recent fall with +LOC and Dx of a subarachnoid hemorrhage. Relevant Past Medical History: Oropharyngeal Dysphagia, HTN, Alcohol Abuse, Anemia, Stroke, COPD, CHF, Pancreatitis, Adult respiratory distress syndrome, Arthritis, CAD, Depression, Anxiety, GERD, Seizure, s/p Tracheostomy (2022), Stroke with residual lower weakness, LUZ HOME ENVIRONMENT / PRIOR FUNCTIONAL LEVEL Prior Functional Level: Required Assistance Patient Lives With: Spouse Assistance Required With: Transportation, Medication Management, Meals Assistance Available: Unable to determine at this time Prior Swallowing Function/Diet Textures: Regular Consistency, Thin Liquids IDDSI Level 0 SUBJECTIVE Patient alert for treatment with bilateral mitts in place. Patient able state his name and provide some simple verbal responses such as okay and fine, occasionally follow simple commands. Patientrestless in bed. Patient's spouse arrived at end of session. THERAPY DIAGNOSIS Dysphagia, oropharyngeal phase TREATMENT INTERVENTIONS Dysphagia Therapy (86450) Skilled Treatment Time (minutes): 17 TRAINING AND EDUCATION PROVIDED IN Results and Recommendations of Session, Dietary Consistencies, Dysphagia Management, Caregiver Education THERAPEUTIC SKILLS USED Education on role of discipline / importance of activity, Verbal cuing, Repetitive task learning, Demonstration / modeling of taught behavior / exercise, Analyze current use of strategies taught, Family / caregiver counseling / training, Modified behavior for increased success, Visual cuing, Tactile cuing OBJECTIVE Current Status Oral Hygiene: Thick dried secretions throughout mouth, Tongue / cheek coating, Impaired Oral Health, Oral Health Assessment Tool (OHAT) Dentition: Retains Natural Dentition, Miscellaneous Missing Teeth Current Feeding Method: Small Bore Feeding Tube Current Diet Textures: NPO with alternative means of nutrition/hydration/medication Current Level Of Communication: Verbal (minimal verbalization with head nodding observed) Current Management Of Secretions: Able to self-manage Oral Motor Exam: Within Functional Limits Except Facial Symmetry Impaired: Left Labial Assessment: Generalized weakness, Reduced sensory awareness, Xerostomia Labial ROM Impaired: Left Labial Strength Impaired: Left Lingual Assessment: Generalized weakness, Xerostomia Lingual ROM Impaired: Left Lingual Strength Impaired: Bilateral Jaw Range of Motion: Limited ROM Palatal Elevation: (uanble to assess 2* poor jaw ROM) ORAL HEALTH ASSESSMENT TOOL Lips: 2 Tongue: 2 Gums and Tissues: 1 Saliva: 2 Natural Teeth: 2 Dentures: N/A Oral Cleanliness: 2 Dental Pain: 0 OHAT Total Score: 11 SPEECH/VOICE/LANGUAGE Vocal Quality: Reduced Vocal Intensity, Hoarse, Rough SWALLOW ASSESSMENT Position Of Patient During Assessment: Upright In Bed Feeding Method: SANDING MACHINE OPERATOR OR TENDER Fed Patient Consistencies Presented: Ice Chips Ice Chips Oral Phase: Suspected Reduced Oral Control, Bolus Holding, Impaired A- P Transfer, Spillage Left Ice Chips Pharyngeal Phase: Suspect Delayed Swallow, Suspect Reduced Range of Hyoid/Laryngeal Elevation, Cough- Delayed Response to Swallow Interventions: SANDING MACHINE OPERATOR OR TENDER provided rigorous non-nutritive oral stimulation via oral care prior to oral intake. Overall poor oral health--RN notified for increased oral care needs. Patient accepted ice chips, one instance of anterior loss to the left. Occasional delayed coughing followed by expectoration and suctioning of thick secretions. Compensatory Strategies Utilized During Assessment: Sit upright 90 degrees for all PO, Pulmonary monitoring, Extended time between presentations Oral Exercises: Lingual Lateralization Lingual Lateralization Number of Repetitions/Cueing: Patient with limited ability to complete despite multiple modals and multi-modal cues. Pharyngeal Exercises: Effortful Swallow Effortful Swallow Number of Repetitions/Cueing: Attempted, patient unable to follow directions to complete GOALS SWALLOWING: Patient / Caregiver will demonstrate knowledge of taught compensatory strategies and dietary consistency recommendations to optimize functional swallow function without overt clinical signs and symptoms of aspiration or dysphagia Speech Rehab Potential: Fair Fair Rehab Potential Due To: Multiple co- morbidities, Limited tolerance to activity, Learning impairments/ poor understanding of deficits Progress Toward Goals: Not progressing toward goals Patient /Caregiver Goals: Resume PO Intake ACUTE CARE TREATMENT PLAN ST Frequency: 3 Times Per Week Treatment Interventions: Dysphagia Management Plan of Care Developed with: Patient, Nurse, Family Plan for next visit: Continue per POC SIGNATURE: ANGELO SilverSANDING MACHINE OPERATOR OR TENDER PATIENT NAME: Saray Corbin DATE: August 12, 2024 TIME: 3:20 PM * Dylon Ochoa MD - 08/12/2024 2:07 PM EDTSummary: please cosign Physician Certification of Less Than 30 Days Skilled Needs Earliest Possible Discharge Date: 08/12/24 To the best of my knowledge, all information provided about the individual is a true and an accurate reflection of Saray Corbin's needs. I certify that following the inpatient level of care, a post-acute nursing facility stay is required for less than 30 days related to the condition(s) for which the patient was treated during the inpatient level of care: Principal Problem: Subarachnoid hemorrhage (HCC) Active Problems: Severe protein-calorie malnutrition (HCC) Pharyngeal dysphagia Stress-induced cardiomyopathy Refeeding syndrome History of seizures Stroke (HCC) Anxiety and depression LUZ (obstructive sleep apnea) HLD (hyperlipidemia) Diabetes mellitus type 2, controlled, without complications (HCC) Anticoagulated On mechanically assisted ventilation (HCC) Closed fracture of multiple ribs of right side Closed fracture of body of sternum Syncope and collapse Alcohol abuse Vocal cord dysfunction Hyponatremia Traumatic encephalopathy Resolved Problems: * No resolved hospital problems. * Attending Physician: Dylon Ochoa MD * Teena Andrews, OT/L - 08/12/2024 2:02 PM EDT Occupational Therapy Treatment Summary SERVICE DATE: 08/12/2024 SERVICE TIME: 1335 to 1345 ROOM: [address] 6 Clicks Score: 7 DISCHARGE RECOMMENDATIONS Subacute/SNF Recommended Discharge Disposition Comments: pt most likely unable to participate in 3 hours of therapy per day Recommended Discharge Disposition Due to: Functional deficits requiring ongoing therapy service prior to discharge home., ADL impairment Anticipated Discharge Needs: Undetermined ASSESSMENT Response to Therapy Interventions: Limited Participation, Low Activity Tolerance, Cognitive Deficits Pt able to respond to questions requiring yes and no answers. Able to state his name and reports that he has pain when asked but unable to state location or number of pain. Able to folow 1 step instructions for face washing, oral care with toothette, and upper body sponge bathing PRECAUTIONS Fall Risk, Lines/Tubes/Drains, Impulsive with Activity, Seizure, Other: See Comments, Bed/Chair Alarm NPO CURRENT HOSPITAL COURSE 63 year old male with a who initially presented s/p mechanical fall with head strike on granite counter top with + LOC. Traumatic right SAH. Closed fracture of multiple ribs of right side - Subacute 9-12th posterior rib fractures. 08/05: MBSS Relevant Past Medical History: Alcohol abuse last drink 04/23/2022, Tobacco abuse, anxiety disorder,Depressive disorder, Seizure disorder, Current pancreatitis with complicating pseudocyst, hx strokewith residual LUE/LLE weakness HOME LIVING Patient Lives With: Spouse Assistance Available: 24-Hour Entry To Home: No Stairs Number Of Stairs To Bed/Bath: 0 (pt stays on first floor) Tub/Shower Type: Tub shower, shower chair, grab bars Laundry: spouse completes- 1st floor Equipment Owned: Walker- Wheeled, Wheelchair- Manual, Cane, Program Review Director PRIOR FUNCTIONAL LEVEL Within Functional Limits, Required Assistance Assistance Required With: Shopping, Laundry, Cleaning, Transportation pt is a questionable historian due to confusion; pt reporting IND with ADLs, spouse completes IADLs, -driving, ambulates with a rollator, hx of falls per chart Baseline Cognition: Oriented to situation, Oriented to time, Oriented to place, Oriented to self SUBJECTIVE COGNITION Communication Deficits: (pt able to respond to questions 08/12/24) Orientation Deficits: Confused, Not oriented to Place, Not oriented to Time, Not oriented to Situation Responsiveness: Awake Follows Commands: 1-step Commands, With Repetition, Cueing Needed Cueing to Follow Commands: Maximum Memory Deficits: Short Term, Recall of Recent Events Executive Function Deficits: (Grossly impaired and appears to be worse compared to OT eval on 08/03.) Cog 6 Start of Session Total Points (Max Score = 24): 11 (08/08/24) Cog 6 End of Session Total Points (Max Score = 24): 12 (08/08/24) THERAPY DIAGNOSIS Decreased activities of daily living (ADL), Reduced mobility-other, Muscle Weakness (generalized), Unsteadiness on feet, General symptoms and signs-other, Difficulty walking-musculoskeletal, Signs and Symptoms Involving Cognitive Functions and Awareness, Lack of coordination-other TREATMENT INTERVENTIONS Self Custodial Management (24390) Timed Code Treatment (minutes): 10 Skilled Treatment Time (minutes): 10 TRAINING & EDUCATION PROVIDED Activity Adaptation/Compensatory Strategies, Command Following, Grooming Tasks, Role of Occupational Therapy, Safety/Judgment, Upper Extremity Bathing THERAPEUTIC SKILLS USED Activity Dosing, Cues for Sequencing/Proper Technique for Activity, Cuing Tactile, Cuing Verbal, Cuing Visual, Management of Critical Lines, Tubes and/or Drains, Physical Assist, Therapeutic Use of Self FUNCTIONAL STATUS Activities of Daily Living Assist Level Additional Information Feeding Total Assistance Grooming Maximal Assistance oral care with toothette, face washing with R hand Bathing Upper Body Maximal Assistance Bathing Lower Body Total Assistance Dressing Upper Body Total Assistance Dressing Lower Body Total Assistance Toileting Total Assistance Mobility Assist Level Additional Information Bed Mobility Rolling: (Deferred any bed mobility due to safety concerns with poor command follow.) Supine To Sit: Maximal Assistance (assist to logroll and bring B LE's off bed, assist to elevate trunk due to confusion and weakness) Sit To Supine: Maximal Assistance Sit to Stand Additional Information (unable to attempt, pt dizzy sitting EOB) Stand to Sit Bed to Chair Toilet/Commode Shower Functional Mobility GOALS Patient will demonstrate progress to optimize self-care activities, cognitive and/or coping to maximize function upon discharge. Rehab Potential: Fair ACUTE CARE TREATMENT PLAN OT Frequency: 2 Times Per Week Treatment Interventions: Education, Self Care/Home Management, Energy Conservation Training, Joint Mobility, Strengthening, Functional Mobility Training, Balance Training, Neuromuscular Re-education Plan for Next Visit: (Simple command follow) SIGNATURE: Teena Andrews OT/L PATIENT NAME: Saray Corbin DATE: August 12, 2024 TIME: 2:02 PM * Elaina Talavera PT, DPT - 08/12/2024 1:56 PM EDT Physical Therapy Treatment Summary SERVICE DATE: 08/12/2024 SERVICE TIME: 1302 to 1312 ROOM: [place] [address] PT 6 Clicks Score: 9 DISCHARGE RECOMMENDATIONS Subacute/SNF Recommended Discharge Disposition Due to: Balance deficits, Functional status decline, Requires multiple therapy disciplines, Patient requires active, intensive rehabilitation by multiple therapy disciplines. Anticipate the patient will tolerate 3 hours of therapy per day. Anticipated Discharge Needs: Undetermined ASSESSMENT Response to Therapy Interventions: Cognitive Deficits, Limited Participation, Low Activity Tolerance, Multiple Ongoing Medical Issues Upon arrival, pt wearing elton hand mitts. Non-verbal but nodding yes to sound of name/. Decreasedcommand following and attention throughout session. Pt moving all extremities freely while in supine position. PT assisted patient to EOB sitting very briefly but required max A. Required heavy assistance to maintain balance due to decreased trunk control and command following. Remains appropriate for SNF at d/c. PRECAUTIONS Fall Risk, Lines/Tubes/Drains, Impulsive with Activity, Seizure, Other: See Comments, Bed/Chair Alarm NPO CURRENT HOSPITAL COURSE 63 year old male with a who initially presented s/p mechanical fall with head strike on granite counter top with + LOC. Traumatic right SAH. Closed fracture of multiple ribs of right side - Subacute 9-12th posterior rib fractures. 08/05: MBSS Relevant Past Medical History: Alcohol abuse last drink 04/23/2022, Tobacco abuse, anxiety disorder,Depressive disorder, Seizure disorder, Current pancreatitis with complicating pseudocyst, hx strokewith residual LUE/LLE weakness HOME LIVING Patient Lives With: Spouse Assistance Available: 24-Hour Entry To Home: No Stairs Number Of Stairs To Bed/Bath: 0 (pt stays on first floor) Tub/Shower Type: Tub shower, shower chair, grab bars Laundry: spouse completes- 1st floor Equipment Owned: Walker- Wheeled, Wheelchair- Manual, Cane, Program Review Director PRIOR FUNCTIONAL LEVEL Within Functional Limits, Required Assistance Assistance Required With: Shopping, Laundry, Cleaning, Transportation pt is a questionable historian due to confusion; pt reporting IND with ADLs, spouse completes IADLs, -driving, ambulates with a rollator, hx of falls per chart SUBJECTIVE Pt nodding in agreement, but non-verbal throughout session. Wearing elton hand mitts. RN/team aware of tolerance to session. THERAPY DIAGNOSIS Reduced mobility-other, Muscle Weakness (generalized) TREATMENT INTERVENTIONS Therapeutic Activity (38595) Timed Code Treatment (minutes): 10 Skilled Treatment Time (minutes): 10 TRAINING & EDUCATION PROVIDED Anatomy and Impact on Deficits, Bed Mobility, Benefits of In-Hospital Mobility, Discharge Planning,Energy Conservation, Positioning, Precautions/Restrictions, Role of Physical Therapy, Treatment Protocol, Sitting Balance THERAPEUTIC SKILLS USED Activity Dosing, Assessment of Tolerance Including Vitals Response to Activity, Bed in Chair Position, Cues for Sequencing/Proper Technique for Activity, Cuing Tactile, Cuing Verbal, Management of Critical Lines, Tubes and/or Drains, Physical Assist FUNCTIONAL STATUS Bed Mobility Rolling: Minimal Assistance Supine To Sit: Maximal Assistance Sit to Supine: Maximal Assistance Scooting: Maximal Assistance Transfers Bed to Chair Gait Stairs GOALS Patient will demonstrate progress to optimize functional mobility, maximize activity tolerance and endurance to maximize function upon discharge. Rehab Potential: Good Progress Toward Goals: Progressing slower than expected ACUTE CARE TREATMENT PLAN PT Frequency: 3 Times Per Week Treatment Interventions: Education, Energy Conservation Training, Strengthening, Functional Mobility Training, Balance Training, Neuromuscular Re-education, Pain Management Plan for Next Visit: Bed Mobility, Chair Transfer Training, Fall Prevention, Sit to Stand Transfers, Sitting Balance, Standing Balance, Standing Tolerance SIGNATURE: Elaina Talavera PT, DPT PATIENT NAME: Saray Corbin DATE: August 12, 2024 TIME: 1:56 PM * Nicci Suazo LSW - 08/12/2024 11:34 AM EDT CARE MANAGEMENT PROGRESS NOTE SERVICE DATE: 08/12/2024 SERVICE TIME: 11:34 AM LOS: 12 days Patient is medically cleared for discharge at this time. On 08/09/24, PT recommendation was for SNF. Patient's provided weekend CM with SNF choices. For Patient to go to SNF, he will need accepting facility, 7000, and updated PT/OT notes so that precert can be initiated. CM called the therapy office to request updated therapy evaluations. SNF choices provided by Patient's . 1. [facility]- cannot accept [facility] jail option, we would need peg tube placement . 2. [facility]- needs updated therapy notes prior to accepting/denying 3. [facility]- unable to accept d/t no available bed 4. [facility]- unable to accept d/t [facility] 5. [facility]- pending CM will continue to follow and initiate precert once Patient has accepting facility. SIGNATURE: RUTH Jack PATIENT NAME: Saray Corbin DATE: August 12, 2024 TIME: 11:34 AM * Jenna Vazquez APRN.CNP - 08/12/2024 8:55 AM EDT TRAUMA PROGRESS NOTE SERVICE DATE: 08/12/2024 SERVICE TIME: 8:55 AM Subjective HISTORY (LAST 24 HOURS): Seen and examined at bedside. No acute events overnight. Awake, able to tell me his first and last name, date of , and that he is in the hospital. Following commands. Thought process is slow, but seems much more lucid than previous days. Tolerating tube feed via [facility]. Reached Christine by phone, confirmed date of for Fred. Discussed physical exam today. Confirms Fred would want to maintain FULL CODE status. Discussed PEG tube placement to optimize discharge disposition to SNF choices. Discussed risks/benefits, discussed this may not be reversible. She confirms PEG tube placement is something Fred would hope to have to optimize his recovery/dispositionout of the hospital if needed. Discussed with attending, plan for PEG tomorrow Current Facility-Administered Medications Medication Dose Route Frequency ondansetron 4 mg tab(s) (ZOFRAN) 4 mg ORAL q 6 H PRN Or ondansetron (PF) 4 mg injection (ZOFRAN) 4 mg INTRAVENOUS q 6 H PRN dextrose 40 % 15 g 15 g ORAL PRN Or glucagon 1 mg injection 1 mg INTRAMUSCULAR PRN Or dextrose 10% iv bolus 12.5 g INTRAVENOUS PRN hydrALAZINE 10 mg injection (APRESOLINE) 10 mg INTRAVENOUS q 6 H PRN NaCl 0.9% iv flush bag 20 mL INTRAVENOUS PRN fentaNYL 50 mcg/mL 25 mcg injection (SUBLIMAZE) 25 mcg INTRAVENOUS q 4 H PRN labetalol 5 mg injection (NORMODYNE) 5 mg INTRAVENOUS q 2 H PRN heparin 5,000 Units injection 5,000 Units SUBCUTANEOUS q 12 H diazePAM 5 mg injection (VALIUM) 5 mg INTRAVENOUS q 2 H PRN Or diazePAM 10 mg injection (VALIUM) 10 mg INTRAVENOUS q 2 H PRN insulin lispro injection (rapid acting) (ADMElog) SUBCUTANEOUS q 6 H pantoprazole 40 mg injection (PROTONIX) 40 mg INTRAVENOUS DAILY (6 AM) rosuvastatin 20 mg tab(s) (CRESTOR) 20 mg NASOGASTRIC DAILY folic acid 1 mg tab(s) 1 mg ORAL/FEEDING TUBE DAILY spironolactone 12.5 mg tab(s) (ALDACTONE) 12.5 mg ORAL DAILY cefTRIAXone iv piggyback 1 g in dextrose (iso-osmotic) 50 mL (ROCEPHIN) 1 g INTRAVENOUS q 24 H sodium chloride 1 g soluble tab(s) 1 g ORAL/FEEDING TUBE TID urea 15 g oral powder (URE-NA) 15 g ORAL/FEEDING TUBE DAILY thiamine 100 mg tab(s) (VITAMIN B1) 100 mg ORAL/FEEDING TUBE DAILY acetaminophen 650 mg tab(s) (TYLENOL) 650 mg ORAL/FEEDING TUBE q 6 H PRN oxyCODONE IR 2.5 mg tab(s) (ROXICODONE) 2.5 mg ORAL/FEEDING TUBE q 6 H PRN QUEtiapine 50 mg tab(s) (SEROquel) 50 mg ORAL/FEEDING TUBE AT BEDTIME sacubitril-valsartan 24-26 mg 1 tablet (ENTRESTO) 1 tablet ORAL/FEEDING TUBE BID metoprolol tartrate (short acting) 25 mg tab(s) (LOPRESSOR) 25 mg ORAL/FEEDING TUBE q 12 H Objective PHYSICAL EXAM: Temp (24hrs), Av.3 ??C (97.4 ??F), Min:36.3 ??C (97.3 ??F), Max:36.5 ??C (97.7 ??F) BP 121/64 Pulse 103 Temp (Src) 97.3 (Oral) Resp 16 Ht 5' 8.898 (1.75m) Wt 132 lb 15 oz (60.3kg) SpO2 97% BMI 19.69 kg/(m^2). O2 Therapy: Room Air Genl: Appears age appropriate. Restless without purposeful-appearing mobility of extremities. Head/Face: Normocephalic. Resolving right temporal abrasion Eyes: PERRLA. EOMI. Sclera not icteric ENMT: External auditory canals clear. Oropharynx is clear. Nasopharynx is clear. Neck: No mid-line masses. No bruits. No LAD. C-spine non-tender. Back: T & L Spine non-tender, no step-offs noted. No flank tenderness. Resp: Breathing is easy and unlabored. No adventitious lung sounds. Equal air entry throughout all lobes. No stridor, retractions, or accessory muscle use. CVS: RRR. No murmur, rub, gallop. 2+ pulses at RA, DP, PT bilat. GI: Abdomen is soft, non-tender, not distended. Bowel sounds normal. Right nare corpak in place MSK: Extremities without clubbing, cyanosis, edema. Normal ROM x 4. Skin: Warm and dry. No lesions of concern. Not jaundiced. Resolving right elbow abrasion Neuro: A&Ox 2-3, Following commands. Thought process is slow, but seems much more lucid than previous days. GCS 14 (E4, V4, M6 - -[address] confusion). Psych: AMS changes LABS/IMAGING (pertinent to today's evaulation): Imaging reviewed today: Labs: Recent Labs 08/12/24 0730 08/12/24 0645 08/11/24 0513 08/10/24 0609 08/09/24 1101 WBC -- 8.98 9.21 8.93 -- HB -- 8.4* 9.0* 8.3* -- HCT -- 27.4* 31.3* 28.1* -- PLT -- 767* 610* 691* -- NA 136 -- -- 134* -- K 4.4 -- -- 4.3 -- CHLOR 101 -- -- 98 -- CO2 23 -- -- 22 -- CREAT 0.48* -- -- 0.45* -- P 4.3 -- -- 3.3 3.3 BUN 20 -- -- 18 -- GLUC 141* -- -- 143* -- TPROT 7.8 -- -- -- -- ALB 3.9 -- -- 3.7* -- MG 1.9 -- -- 1.6* -- CA 9.4 -- -- 9.4 -- ALKPHOS 157* -- -- -- -- TBILI 0.2 -- -- -- -- AST 29 -- -- -- -- ALT 30 -- -- -- -- Assessment/Plan ACTIVE PROBLEM LIST Severe Protein-Calorie Malnutrition (Hcc) Nicotine use disorder, F17.2 Ards (Adult Respiratory Distress Syndrome) ([facility]) Status Post Tracheostomy ([facility]) Pleural Effusion Transudative Pancreatic Insufficiency (Hcc) Pharyngeal Dysphagia C. Difficile Diarrhea Iron Deficiency Anemia Secondary to Inadequate Dietary Iron Intake Anemia of Chronic Disease Stress-Induced Cardiomyopathy Refeeding Syndrome Dysphagia History of Seizures Stroke (Hcc) Anxiety and Depression Copd (Chronic Obstructive Pulmonary Disease) (Hcc) Luz (Obstructive Sleep Apnea) Htn (Hypertension) Chf (Congestive Heart Failure) ([facility]) Cad (Coronary Artery Disease) Hld (Hyperlipidemia) Subarachnoid Hemorrhage (Hcc) Diabetes Mellitus Type 2, Controlled, Without Complications (Hcc) Anticoagulated On Mechanically Assisted Ventilation (Hcc) Closed Fracture of Multiple Ribs of Right Side Closed Fracture of Body of Sternum Syncope and Collapse Alcohol Abuse Vocal Cord Dysfunction Hyponatremia Traumatic Encephalopathy ASSESSMENT/PLAN: Assessment & Plan Subarachnoid hemorrhage (HCC) - Neurosurgery consulted - Non operative management - Neuro checks Q 4 - Repeat CT brain: Stable - MRI 08/01: Small focus of diffusion restriction posterior LEFT aspect of the patsy - BEM DC 08/02 as no seizure activity noted. Moderate diffuse encephalopathy - 20 min BEM 08/06: negative - SBP goal: < 140 - DVT ppx: SQH - 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 - Seizure prophylaxis: keppra - PT/OT: [facility] vs SNF - MM pain control - 08/08 repeat CTH stable Pharyngeal dysphagia - SANDING MACHINE OPERATOR OR TENDER eval: MBS Monday - Corpak placed 08/03 - Nutrition consult - NPO - Continue home PPI MBSS planned for 08/05- complete- vocal cord dysfunction - ENT consult Dr Euceda discussed via text- will set up out pt follow up - PEG planned for 08/13 Stress-induced cardiomyopathy - Most recent EF ~ 43% - Holding home entresto, aldactone and metop- resumed 08/05 - Repeat echo: LV moderately dilated with Lvef 55%, left atrial cavity severely dilated, mild MVR, and mild pHTN. Compared to prior exam from 05/2022 LV fx improved. 08/06- hold Aldactone due to hyponatremia today until seen by nephrology 08/10- resume Aldactone Friday 08/11 History of seizures - No home AEDs - Will continue keppra 1g BID - BEM DC 08/02 as no seizure activity noted. Moderate diffuse encephalopathy Anxiety and depression - Holding home lexapro and seroquel - Initially held d/t lack of enteral access, now held d/t prolonged qtc - Repeat EKG ordered for AM 08/05- EKG- complete , no prolonged QT- 379 -May resume Lexapro and seroquel today 08/08: Escitalopram discontinued. Receiving Seroquel, QTc 487. 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 Compared to prior exam from 05/2022 LV fx improved. - Tele Syncope and collapse - Unclear etiology of fall - Reports multiple falls and dizziness at home per - Echo: LV moderately dilated with Lvef 55%, left atrial cavity severely dilated, mild MVR, and mild pHTN. Compared to prior exam from 05/2022 LV fx improved. - Carotids: Bilateral carotid artery duplex with approximately 0-29% stenosis bilaterally. - Tele Alcohol abuse -Patient reported to be heavy drinker per family -Started on phenobarb taper 08/02, now completed -CIWA Severe protein-calorie malnutrition (HCC) - Nutrition consult Refeeding syndrome - Daily labs - Replete electrolytes as needed - Slow TF advancement, will keep at 20ml/hr today and advance in AM. Goal is 50ml/hr - PEG planned for 08/13 Vocal cord dysfunction - ENT consult - Spoke with Dr Euceda via text - He is to send Message to ENT scheduling team for out pt follow up Hyponatremia - Nephrology following. 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 FWF 50cc Q8h, continue salt tabs, no need for fluid restriction as not taking PO - Daily labs - Stablilizing Traumatic encephalopathy Evidence on 20min BEM UA with moderate bacteria, culture in process - Adding ceftriaxone pending urine culture 08/10 Mixed microbiota- cont Ceftriaxone VTE Prophylaxis: VTE prophylaxis appropriate VTE Prophy: SQH, SCDs Diet: NPO with TF PT/OT: SNF Dispo: RNF I spent a total of 35 minutes on the date of the service which included preparing to see the patient, [id number] patient care, completing clinical documentation, obtaining and/or reviewing separately obtained history, performing a medically appropriate examination, counseling and educating the pat ient/family/caregiver, ordering medications, tests, or procedures, communicating with other HCPs (not separately reported), independently interpreting results (not separately reported), communicatingresults to the patient/family/caregiver, and care coordination (not separately reported). SIGNATURE: Jenna Vazquez APRN.CNP PATIENT NAME: Saray Corbin DATE: August 12, 2024 TIME: 8:55 AM * Raiza Bates APRN.CNP - 08/11/2024 11:12 AM EDT TRAUMA PROGRESS NOTE SERVICE DATE: 08/11/2024 SERVICE TIME: 11:13 AM Subjective HISTORY (LAST 24 HOURS): Pt seen this am more awake than has been . Did tell Nurse this am his nameis Fred, answered one of my questions this am with yes response appropriately. tube feed corpak running well. start dispo planning. pt will need intensive rehab to get to baseline . Current Facility-Administered Medications Medication Dose Route Frequency ondansetron 4 mg tab(s) (ZOFRAN) 4 mg ORAL q 6 H PRN Or ondansetron (PF) 4 mg injection (ZOFRAN) 4 mg INTRAVENOUS q 6 H PRN dextrose 40 % 15 g 15 g ORAL PRN Or glucagon 1 mg injection 1 mg INTRAMUSCULAR PRN Or dextrose 10% iv bolus 12.5 g INTRAVENOUS PRN hydrALAZINE 10 mg injection (APRESOLINE) 10 mg INTRAVENOUS q 6 H PRN NaCl 0.9% iv flush bag 20 mL INTRAVENOUS PRN fentaNYL 50 mcg/mL 25 mcg injection (SUBLIMAZE) 25 mcg INTRAVENOUS q 4 H PRN labetalol 5 mg injection (NORMODYNE) 5 mg INTRAVENOUS q 2 H PRN heparin 5,000 Units injection 5,000 Units SUBCUTANEOUS q 12 H diazePAM 5 mg injection (VALIUM) 5 mg INTRAVENOUS q 2 H PRN Or diazePAM 10 mg injection (VALIUM) 10 mg INTRAVENOUS q 2 H PRN insulin lispro injection (rapid acting) (ADMElog) SUBCUTANEOUS q 6 H pantoprazole 40 mg injection (PROTONIX) 40 mg INTRAVENOUS DAILY (6 AM) rosuvastatin 20 mg tab(s) (CRESTOR) 20 mg NASOGASTRIC DAILY folic acid 1 mg tab(s) 1 mg ORAL/FEEDING TUBE DAILY spironolactone 12.5 mg tab(s) (ALDACTONE) 12.5 mg ORAL DAILY cefTRIAXone iv piggyback 1 g in dextrose (iso-osmotic) 50 mL (ROCEPHIN) 1 g INTRAVENOUS q 24 H sodium chloride 1 g soluble tab(s) 1 g ORAL/FEEDING TUBE TID urea 15 g oral powder (URE-NA) 15 g ORAL/FEEDING TUBE DAILY thiamine 100 mg tab(s) (VITAMIN B1) 100 mg ORAL/FEEDING TUBE DAILY acetaminophen 650 mg tab(s) (TYLENOL) 650 mg ORAL/FEEDING TUBE q 6 H PRN oxyCODONE IR 2.5 mg tab(s) (ROXICODONE) 2.5 mg ORAL/FEEDING TUBE q 6 H PRN QUEtiapine 50 mg tab(s) (SEROquel) 50 mg ORAL/FEEDING TUBE AT BEDTIME sacubitril-valsartan 24-26 mg 1 tablet (ENTRESTO) 1 tablet ORAL/FEEDING TUBE BID metoprolol tartrate (short acting) 25 mg tab(s) (LOPRESSOR) 25 mg ORAL/FEEDING TUBE q 12 H Objective PHYSICAL EXAM: Temp (24hrs), Av.5 ??C (97.7 ??F), Min:36.3 ??C (97.3 ??F), Max:36.9 ??C (98.4 ??F) BP 129/52 Pulse 91 Temp (Src) 97.7 (Axillary) Resp 15 Ht 5' 8.898 (1.75m) Wt 132 lb 15 oz (60.3kg) SpO2 100% BMI 19.69 kg/(m^2). O2 Therapy: Room Air Genl: Appears age appropriate. Restless without purposeful-appearing mobility of extremities. Head/Face: Normocephalic. Right temporal abrasion Eyes: PERRLA. EOMI. Sclera not icteric ENMT: External auditory canals clear. Oropharynx is clear. Nasopharynx is clear. Neck: No mid-line masses. No bruits. No LAD. C-spine non-tender. Back: T & L Spine non-tender, no step-offs noted. No flank tenderness. Resp: Breathing is easy and unlabored. No adventitious lung sounds. Equal air entry throughout all lobes. No stridor, retractions, or accessory muscle use. CVS: RRR. No murmur, rub, gallop. 2+ pulses at RA, DP, PT bilat. GI: Abdomen is soft, non-tender, not distended. Bowel sounds normal. Right nare corpak in place MSK: Extremities without clubbing, cyanosis, edema. Normal ROM x 4. Skin: Warm and dry. No lesions of concern. Not jaundiced. Right elbow abrasion Neuro: A&Ox0 mumbling no distinct words , moving spontaneously, not following commands. GCS 11 (E4, V2, M5). Psych: AMS changes LABS/IMAGING (pertinent to today's evaulation): Imaging reviewed today: Labs: Recent Labs 08/11/24 0513 08/10/24 0609 08/09/24 1101 08/09/24 0448 WBC 9.21 8.93 -- 9.32 HB 9.0* 8.3* -- 8.1* HCT 31.3* 28.1* -- 27.2* PLT 610* 691* -- 615* NA -- 134* -- 132* K -- 4.3 -- 4.0 CHLOR -- 98 -- 98 CO2 -- 22 -- 20* CREAT -- 0.45* -- 0.51* P -- 3.3 3.3 2.7 BUN -- 18 -- 13 GLUC -- 143* -- 158* ALB -- 3.7* -- 3.6* MG -- 1.6* -- 1.8 CA -- 9.4 -- 9.0 Assessment/Plan ACTIVE PROBLEM LIST Severe Protein-Calorie Malnutrition (Hcc) Nicotine use disorder, F17.2 Ards (Adult Respiratory Distress Syndrome) (Hcc) Status Post Tracheostomy (Hcc) Pleural Effusion Transudative Pancreatic Insufficiency (Hcc) Pharyngeal Dysphagia C. Difficile Diarrhea Iron Deficiency Anemia Secondary to Inadequate Dietary Iron Intake Anemia of Chronic Disease Stress-Induced Cardiomyopathy Refeeding Syndrome Dysphagia History of Seizures Stroke (Hcc) Anxiety and Depression Copd (Chronic Obstructive Pulmonary Disease) (Hcc) Luz (Obstructive Sleep Apnea) Htn (Hypertension) Chf (Congestive Heart Failure) (Hcc) Cad (Coronary Artery Disease) Hld (Hyperlipidemia) Subarachnoid Hemorrhage (Hcc) Diabetes Mellitus Type 2, Controlled, Without Complications (Hcc) Anticoagulated On Mechanically Assisted Ventilation (Hcc) Closed Fracture of Multiple Ribs of Right Side Closed Fracture of Body of Sternum Syncope and Collapse Alcohol Abuse Vocal Cord Dysfunction Hyponatremia Traumatic Encephalopathy ASSESSMENT/PLAN: Assessment & Plan Subarachnoid hemorrhage (HCC) - Neurosurgery consulted - Non operative management - Neuro checks Q 4 - Repeat CT brain: Stable - MRI 08/01: Small focus of diffusion restriction posterior LEFT aspect of the patsy - BEM DC 08/02 as no seizure activity noted. Moderate diffuse encephalopathy - 20 min BEM 08/06: negative - SBP goal: < 140 - DVT ppx: SQH - 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 - Seizure prophylaxis: keppra - PT/OT: [facility] vs SNF - MM pain control - 08/08 repeat CTH stable Pharyngeal dysphagia - SANDING MACHINE OPERATOR OR TENDER eval: MBS Monday - Corpak placed 08/03 - Nutrition consult - NPO - Continue home PPI MBSS planned for 08/05- complete- vocal cord dysfunction - ENT consult Dr Euceda discussed via text- will set up out pt follow up Stress-induced cardiomyopathy - Most recent EF ~ 43% - Holding home entresto, aldactone and metop- resumed 08/05 - Repeat echo: LV moderately dilated with Lvef 55%, left atrial cavity severely dilated, mild MVR, and mild pHTN. Compared to prior exam from 05/2022 LV fx improved. 08/06- hold Aldactone due to hyponatremia today until seen by nephrology 08/10- resume Aldactone Friday 08/11 History of seizures - No home AEDs - Will continue keppra 1g BID - BEM DC 08/02 as no seizure activity noted. Moderate diffuse encephalopathy Anxiety and depression - Holding home lexapro and seroquel - Initially held d/t lack of enteral access, now held d/t prolonged qtc - Repeat EKG ordered for AM 08/05- EKG- complete , no prolonged QT- 379 -May resume Lexapro and seroquel today 08/08: Escitalopram discontinued. Receiving Seroquel, QTc 487. 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 Compared to prior exam from 05/2022 LV fx improved. - Tele Syncope and collapse - Unclear etiology of fall - Reports multiple falls and dizziness at home per - Echo: LV moderately dilated with Lvef 55%, left atrial cavity severely dilated, mild MVR, and mild pHTN. Compared to prior exam from 05/2022 LV fx improved. - Carotids: Bilateral carotid artery duplex with approximately 0-29% stenosis bilaterally. - Tele Alcohol abuse -Patient reported to be heavy drinker per family -Started on phenobarb taper 08/02, now completed -CIWA Severe protein-calorie malnutrition (HCC) - Nutrition consult Refeeding syndrome - Daily labs - Replete electrolytes as needed - Slow TF advancement, will keep at 20ml/hr today and advance in AM. Goal is 50ml/hr Vocal cord dysfunction - ENT consult - Spoke with Dr Euceda via text - He is to send Message to ENT scheduling team for out pt follow up Hyponatremia - Nephrology following. 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 FWF 50cc Q8h, continue salt tabs, no need for fluid restriction as not taking PO - Daily labs 08/09: Improving, NA 132 today 08/10 Na improved 134 Traumatic encephalopathy Evidence on 20min BEM UA with moderate bacteria, culture in process - Adding ceftriaxone pending urine culture 08/10 Mixed microbiota- cont Ceftriaxone VTE Prophylaxis: VTE prophylaxis appropriate VTE Prophy: SQH, SCDs Diet: NPO with TF PT/OT: [facility] vs SNF Dispo: RNF I spent a total of 35 minutes on the date of the service which included preparing to see the patient, [id number] patient care, completing clinical documentation, obtaining and/or reviewing separately obtained history, performing a medically appropriate examination, counseling and educating the pat ient/family/caregiver, ordering medications, tests, or procedures, communicating with other HCPs (not separately reported), independently interpreting results (not separately reported), communicatingresults to the patient/family/caregiver, and care coordination (not separately reported). SIGNATURE: Raiza Bates APRN.CNP PATIENT NAME: Saray Corbin DATE: August 11, 2024 TIME: 11:13 AM * Lj Mosqueda LISW-S - 08/10/2024 3:37 PM EDT CARE MANAGEMENT PROGRESS NOTE SERVICE DATE: 08/10/2024 SERVICE TIME: 3:37 PM LOS: 10 days CM spoke with pt's regarding DC planning. Discussed PT now recommending SNF. Discussed pt's mentation and ability to tolerate therapies. Pt'swife chose SNF facilities for referrals. Referrals sent CM to follow up with pt's regarding FOC. Pt will need updated PT/OT evals and precert prior to DC SIGNATURE: LUPE MIX PATIENT NAME: Saray Corbin DATE: August 10, 2024 TIME: 3:37 PM * Raiza Bates APRN.CNP - 08/10/2024 9:35 AM EDT TRAUMA PROGRESS NOTE SERVICE DATE: 08/10/2024 SERVICE TIME: 9:37 AM Subjective HISTORY (LAST 24 HOURS): Moves all 4 extremities but not to comand . will track with eyes. eyes open spontaneously as well. for verbal just grunts/ moans GCS remains 11 this am , NA continues to improve to 134 this am , Per nephrology 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 It should be <200 in the setting of hyponatremia . urine culture with mixed micro. NO white count . will continue rocephin for urinalysis with pos Bacteria . replete mag . PT recommending SNF on discharge . OT still with [facility] recs . MAy start dispo planning. Likely ready for discharge in next 1-2 days Current Facility-Administered Medications Medication Dose Route Frequency ondansetron 4 mg tab(s) (ZOFRAN) 4 mg ORAL q 6 H PRN Or ondansetron (PF) 4 mg injection (ZOFRAN) 4 mg INTRAVENOUS q 6 H PRN dextrose 40 % 15 g 15 g ORAL PRN Or glucagon 1 mg injection 1 mg INTRAMUSCULAR PRN Or dextrose 10% iv bolus 12.5 g INTRAVENOUS PRN hydrALAZINE 10 mg injection (APRESOLINE) 10 mg INTRAVENOUS q 6 H PRN NaCl 0.9% iv flush bag 20 mL INTRAVENOUS PRN fentaNYL 50 mcg/mL 25 mcg injection (SUBLIMAZE) 25 mcg INTRAVENOUS q 4 H PRN labetalol 5 mg injection (NORMODYNE) 5 mg INTRAVENOUS q 2 H PRN heparin 5,000 Units injection 5,000 Units SUBCUTANEOUS q 12 H diazePAM 5 mg injection (VALIUM) 5 mg INTRAVENOUS q 2 H PRN Or diazePAM 10 mg injection (VALIUM) 10 mg INTRAVENOUS q 2 H PRN insulin lispro injection (rapid acting) (ADMElog) SUBCUTANEOUS q 6 H pantoprazole 40 mg injection (PROTONIX) 40 mg INTRAVENOUS DAILY (6 AM) rosuvastatin 20 mg tab(s) (CRESTOR) 20 mg NASOGASTRIC DAILY folic acid 1 mg tab(s) 1 mg ORAL/FEEDING TUBE DAILY [Order Held by LIP] spironolactone 12.5 mg tab(s) (ALDACTONE) 12.5 mg ORAL DAILY cefTRIAXone iv piggyback 1 g in dextrose (iso-osmotic) 50 mL (ROCEPHIN) 1 g INTRAVENOUS q 24 H sodium chloride 1 g soluble tab(s) 1 g ORAL/FEEDING TUBE TID urea 15 g oral powder (URE-NA) 15 g ORAL/FEEDING TUBE DAILY thiamine 100 mg tab(s) (VITAMIN B1) 100 mg ORAL/FEEDING TUBE DAILY acetaminophen 650 mg tab(s) (TYLENOL) 650 mg ORAL/FEEDING TUBE q 6 H PRN oxyCODONE IR 2.5 mg tab(s) (ROXICODONE) 2.5 mg ORAL/FEEDING TUBE q 6 H PRN QUEtiapine 50 mg tab(s) (SEROquel) 50 mg ORAL/FEEDING TUBE AT BEDTIME sacubitril-valsartan 24-26 mg 1 tablet (ENTRESTO) 1 tablet ORAL/FEEDING TUBE BID metoprolol tartrate (short acting) 25 mg tab(s) (LOPRESSOR) 25 mg ORAL/FEEDING TUBE q 12 H Objective PHYSICAL EXAM: Temp (24hrs), Av.4 ??C (97.6 ??F), Min:36.3 ??C (97.3 ??F), Max:36.6 ??C (97.8 ??F) BP 140/69 Pulse 100 Temp (Src) 97.3 (Axillary) Resp 16 Ht 5' 8.898 (1.75m) Wt 132 lb 15 oz (60.3kg) SpO2 95% BMI 19.69 kg/(m^2). O2 Therapy: Room Air Genl: Appears age appropriate. Restless without purposeful-appearing mobility of extremities. Head/Face: Normocephalic. Right temporal abrasion Eyes: PERRLA. EOMI. Sclera not icteric ENMT: External auditory canals clear. Oropharynx is clear. Nasopharynx is clear. Neck: No mid-line masses. No bruits. No LAD. C-spine non-tender. Back: T & L Spine non-tender, no step-offs noted. No flank tenderness. Resp: Breathing is easy and unlabored. No adventitious lung sounds. Equal air entry throughout all lobes. No stridor, retractions, or accessory muscle use. CVS: RRR. No murmur, rub, gallop. 2+ pulses at RA, DP, PT bilat. GI: Abdomen is soft, non-tender, not distended. Bowel sounds normal. Right nare corpak in place MSK: Extremities without clubbing, cyanosis, edema. Normal ROM x 4. Skin: Warm and dry. No lesions of concern. Not jaundiced. Right elbow abrasion Neuro: A&Ox0 mumbling no distinct words , moving spontaneously, not following commands. GCS 11 (E4, V2, M5). Psych: AMS changes LABS/IMAGING (pertinent to today's evaulation): Imaging reviewed today: Labs: Recent Labs 08/10/24 0609 08/09/24 1101 08/09/24 0448 08/08/24 1656 08/08/24 0448 WBC 8.93 -- 9.32 9.12 -- HB 8.3* -- 8.1* 8.3* -- HCT 28.1* -- 27.2* 27.7* -- PLT 691* -- 615* 624* -- NA 134* -- 132* -- 126* K 4.3 -- 4.0 -- 4.0 CHLOR 98 -- 98 -- 94* CO2 22 -- 20* -- 21* CREAT 0.45* -- 0.51* -- 0.54* P 3.3 3.3 2.7 -- 2.5* BUN 18 -- 13 -- 10 GLUC 143* -- 158* -- 152* ALB 3.7* -- 3.6* -- 3.7* MG 1.6* -- 1.8 -- 1.6* CA 9.4 -- 9.0 -- 8.8 Assessment/Plan ACTIVE PROBLEM LIST Severe Protein-Calorie Malnutrition (Hcc) Nicotine use disorder, F17.2 Ards (Adult Respiratory Distress Syndrome) (Hcc) Status Post Tracheostomy (Hcc) Pleural Effusion Transudative Pancreatic Insufficiency (Hcc) Pharyngeal Dysphagia C. Difficile Diarrhea Iron Deficiency Anemia Secondary to Inadequate Dietary Iron Intake Anemia of Chronic Disease Stress-Induced Cardiomyopathy Refeeding Syndrome Dysphagia History of Seizures Stroke (Hcc) Anxiety and Depression Copd (Chronic Obstructive Pulmonary Disease) (Hcc) Luz (Obstructive Sleep Apnea) Htn (Hypertension) Chf (Congestive Heart Failure) (Hcc) Cad (Coronary Artery Disease) Hld (Hyperlipidemia) Subarachnoid Hemorrhage (Hcc) Diabetes Mellitus Type 2, Controlled, Without Complications (Hcc) Anticoagulated On Mechanically Assisted Ventilation (Hcc) Closed Fracture of Multiple Ribs of Right Side Closed Fracture of Body of Sternum Syncope and Collapse Alcohol Abuse Vocal Cord Dysfunction Hyponatremia Traumatic Encephalopathy ASSESSMENT/PLAN: Assessment & Plan Subarachnoid hemorrhage (HCC) - Neurosurgery consulted - Non operative management - Neuro checks Q 4 - Repeat CT brain: Stable - MRI 08/01: Small focus of diffusion restriction posterior LEFT aspect of the patsy - BEM DC 08/02 as no seizure activity noted. Moderate diffuse encephalopathy - 20 min BEM 08/06: negative - SBP goal: < 140 - DVT ppx: SQH - 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 - Seizure prophylaxis: keppra - PT/OT: [facility] vs SNF - MM pain control - 08/08 repeat CTH stable Pharyngeal dysphagia - SANDING MACHINE OPERATOR OR TENDER eval: MBS Monday - Corpak placed 08/03 - Nutrition consult - NPO - Continue home PPI MBSS planned for 08/05- complete- vocal cord dysfunction - ENT consult Dr Euceda discussed via text- will set up out pt follow up Stress-induced cardiomyopathy - Most recent EF ~ 43% - Holding home entresto, aldactone and metop- resumed 08/05 - Repeat echo: LV moderately dilated with Lvef 55%, left atrial cavity severely dilated, mild MVR, and mild pHTN. Compared to prior exam from 05/2022 LV fx improved. 08/06- hold Aldactone due to hyponatremia today until seen by nephrology 08/10- resume Aldactone Friday 08/11 History of seizures - No home AEDs - Will continue keppra 1g BID - BEM DC 08/02 as no seizure activity noted. Moderate diffuse encephalopathy Anxiety and depression - Holding home lexapro and seroquel - Initially held d/t lack of enteral access, now held d/t prolonged qtc - Repeat EKG ordered for AM 08/05- EKG- complete , no prolonged QT- 379 -May resume Lexapro and seroquel today 08/08: Escitalopram discontinued. Receiving Seroquel, QTc 487. Diabetes mellitus type 2, controlled, without complications (HCC) - Hold Farxiga - SSI - Accu checks AC/HS Anticoagulated - No current AC use - Only on plavix - Given TXA at OSH - Continue to monitor platelets On mechanically assisted ventilation (HCC) - Intubated for airway protection - Extubated 08/01 - Close respiratory monitoring Stroke ([facility]) - 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 Compared to prior exam from 05/2022 LV fx improved. - Tele Syncope and collapse - Unclear etiology of fall - Reports multiple falls and dizziness at home per - Echo: LV moderately dilated with Lvef 55%, left atrial cavity severely dilated, mild MVR, and mild pHTN. Compared to prior exam from 05/2022 LV fx improved. - Carotids: Bilateral carotid artery duplex with approximately 0-29% stenosis bilaterally. - Tele Alcohol abuse -Patient reported to be heavy drinker per family -Started on phenobarb taper 08/02, now completed -CIWA Severe protein-calorie malnutrition (HCC) - Nutrition consult Refeeding syndrome - Daily labs - Replete electrolytes as needed - Slow TF advancement, will keep at 20ml/hr today and advance in AM. Goal is 50ml/hr Vocal cord dysfunction - ENT consult - Spoke with Dr Euceda via text - He is to send Message to ENT scheduling team for out pt follow up Hyponatremia - Nephrology following. 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 FWF 50cc Q8h, continue salt tabs, no need for fluid restriction as not taking PO - Daily labs 08/09: Improving, NA 132 today 08/10 Na improved 134 Traumatic encephalopathy Evidence on 20min BEM UA with moderate bacteria, culture in process - Adding ceftriaxone pending urine culture 08/10 Mixed microbiota- cont Ceftriaxone VTE Prophylaxis: VTE prophylaxis appropriate VTE Prophy: SQH, SCDs Diet: NPO with TF PT/OT: AR Dispo: RNF I spent a total of 35 minutes on the date of the service which included preparing to see the patient, [id number] patient care, completing clinical documentation, obtaining and/or reviewing separately obtained history, performing a medically appropriate examination, counseling and educating the pat ient/family/caregiver, ordering medications, tests, or procedures, communicating with other HCPs (not separately reported), independently interpreting results (not separately reported), communicatingresults to the patient/family/caregiver, and care coordination (not separately reported). SIGNATURE: Raiza Bates APRN.CNP PATIENT NAME: Saray Corbin DATE: August 10, 2024 TIME: 9:35 AM * Teena Andrews OT/L - 08/09/2024 3:18 PM EDT OCCUPATIONAL THERAPY MISSED VISIT SERVICE DATE: 08/09/2024 SERVICE TIME: 1437 ROOM: [place] [address] Patient not seen due to Clinical Appropriateness. Pt unable to follow instructions to participate in OT session. SIGNATURE: KIERRA Stubbs PATIENT NAME: Saray Corbin DATE: August 09, 2024 TIME: 3:18 PM * Christina Mosqueda CCC-SLP - 08/09/2024 11:48 AM EDT SPEECH THERAPY MISSED VISIT SERVICE DATE: 08/09/2024 SERVICE TIME: 1148 ROOM: [place] [address] Patient not seen due to Clinical Appropriateness. Patient is sleeping. RN reports he has been nonverbal and not following commands today. Will continue to follow. SIGNATURE: TYRON So PATIENT NAME: Sarya Corbin DATE: August 09, 2024 TIME: 11:50 AM * Nicci Suazo LSW - 08/09/2024 11:24 AM EDT CARE MANAGEMENT WEEKEND PLANNING NOTE NO WEEKEND DISCHARGE Disposition: CASE MANAGMENT PROVIDER LIST: Rehab Facility Anticipated Discharge Date: TBD Plan was for [facility]. OT is still recommending [facility] at this time, PT is now recommending SNF. CM will continue to follow and initiate precert once Patient is closer to discharge. If plan remains for [facility] acute rehab, discharge packet is on chart, MMT trip to facility is on will call. CM called Patient's Christine [phone] to discuss SNF recommendation; CM left a with callback number. Weekend Manager Chemical Pager #: MONDAY: [place] POST MONDAY: JYOTI COPELAND SIGNATURE: RUTH Jack PATIENT NAME: Saray Corbin DATE: August 09, 2024 TIME: 11:24 AM PAGER/CONTACT #: * Jenna Vazquez APRN.KENO WRITER - 08/09/2024 9:50 AM EDT TRAUMA PROGRESS NOTE SERVICE DATE: 08/09/2024 SERVICE TIME: 9:50 AM Subjective HISTORY (LAST 24 HOURS): Seen and examined at bedside. No acute events overnight. Restless on exam,observed moving all extremities, but not to command. Localizes pain throughout by withdrawing at site. Opens eyes spontaneously, intermittently track throughout room. Grunts and groans/moans spontaneously and to stimulus. GCS 11 (E4, V2, M5). . Repeat CT brain this AM with improvement. EEG with severe diffuse encephalopathy and no epileptiform discharges or EEG seizures. Nephrology following for hyponatremia - improving today, NA+132. Continue with salt tabs, and FWF decreased to 50ml q8. Replacing electrolytes given refeeding syndrome. UA with moderate bacteria, culture pending. Will add ceftriaxone for now. Unable to participate with PT/OT given mental status. PT recommending SNF on discharge. Not yet medically optimized for discharge. Current Facility-Administered Medications Medication Dose Route Frequency ondansetron 4 mg tab(s) (ZOFRAN) 4 mg ORAL q 6 H PRN Or ondansetron (PF) 4 mg injection (ZOFRAN) 4 mg INTRAVENOUS q 6 H PRN dextrose 40 % 15 g 15 g ORAL PRN Or glucagon 1 mg injection 1 mg INTRAMUSCULAR PRN Or dextrose 10% iv bolus 12.5 g INTRAVENOUS PRN hydrALAZINE 10 mg injection (APRESOLINE) 10 mg INTRAVENOUS q 6 H PRN NaCl 0.9% iv flush bag 20 mL INTRAVENOUS PRN acetaminophen 650 mg tab(s) (TYLENOL) 650 mg ORAL q 6 H PRN oxyCODONE IR 2.5 mg tab(s) (ROXICODONE) 2.5 mg ORAL q 6 H PRN fentaNYL 50 mcg/mL 25 mcg injection (SUBLIMAZE) 25 mcg INTRAVENOUS q 4 H PRN labetalol 5 mg injection (NORMODYNE) 5 mg INTRAVENOUS q 2 H PRN heparin 5,000 Units injection 5,000 Units SUBCUTANEOUS q 12 H diazePAM 5 mg injection (VALIUM) 5 mg INTRAVENOUS q 2 H PRN Or diazePAM 10 mg injection (VALIUM) 10 mg INTRAVENOUS q 2 H PRN insulin lispro injection (rapid acting) (ADMElog) SUBCUTANEOUS q 6 H thiamine 100 mg tab(s) (VITAMIN B1) 100 mg ORAL DAILY pantoprazole 40 mg injection (PROTONIX) 40 mg INTRAVENOUS DAILY (6 AM) rosuvastatin 20 mg tab(s) (CRESTOR) 20 mg NASOGASTRIC DAILY folic acid 1 mg tab(s) 1 mg ORAL/FEEDING TUBE DAILY QUEtiapine 50 mg tab(s) (SEROquel) 50 mg ORAL AT BEDTIME sacubitril-valsartan 24-26 mg 1 tablet (ENTRESTO) 1 tablet ORAL BID [Order Held by LIP] spironolactone 12.5 mg tab(s) (ALDACTONE) 12.5 mg ORAL DAILY metoprolol tartrate (short acting) 25 mg tab(s) (LOPRESSOR) 25 mg ORAL q 12 H urea 30 g oral powder (URE-NA) 30 g ORAL/FEEDING TUBE DAILY sodium chloride 3 g soluble tab(s) 3 g ORAL/FEEDING TUBE TID Objective PHYSICAL EXAM: Temp (24hrs), Av.5 ??C (97.7 ??F), Min:36.3 ??C (97.3 ??F), Max:36.8 ??C (98.2 ??F) BP 142/60 Pulse 106 Temp (Src) 98 (Axillary) Resp 16 Ht 5' 8.898 (1.75m) Wt 132 lb 15 oz(60.3kg) SpO2 95% BMI 19.69 kg/(m^2). O2 Therapy: Room Air Genl: Appears age appropriate. Restless without purposeful-appearing mobility of extremities. Head/Face: Normocephalic. Right temporal abrasion Eyes: PERRLA. EOMI. Sclera not icteric ENMT: External auditory canals clear. Oropharynx is clear. Nasopharynx is clear. Neck: No mid-line masses. No bruits. No LAD. C-spine non-tender. Back: T & L Spine non-tender, no step-offs noted. No flank tenderness. Resp: Breathing is easy and unlabored. No adventitious lung sounds. Equal air entry throughout all lobes. No stridor, retractions, or accessory muscle use. CVS: RRR. No murmur, rub, gallop. 2+ pulses at RA, DP, PT bilat. GI: Abdomen is soft, non-tender, not distended. Bowel sounds normal. Right nare corpak in place MSK: Extremities without clubbing, cyanosis, edema. Normal ROM x 4. Skin: Warm and dry. No lesions of concern. Not jaundiced. Right elbow abrasion Neuro: A&Ox0 mumbling no distinct words , moving spontaneously, not following commands. GCS 11 (E4, V2, M5). Psych: AMS changes LABS/IMAGING (pertinent to today's evaulation): Imaging reviewed today: Labs: Recent Labs 08/09/24 0448 08/08/24 1656 08/08/24 0448 08/07/24 1111 08/07/24 0729 WBC 9.32 9.12 -- -- 11.91* HB 8.1* 8.3* -- -- 7.8* HCT 27.2* 27.7* -- -- 25.6* PLT 615* 624* -- -- 524* NA 132* -- 126* 125* -- K 4.0 -- 4.0 3.7 -- CHLOR 98 -- 94* 95* -- CO2 20* -- 21* 22 -- CREAT 0.51* -- 0.54* 0.54* -- P 2.7 -- 2.5* 2.9 -- BUN 13 -- 10 19 -- GLUC 158* -- 152* 126* -- ALB 3.6* -- 3.7* 3.4* -- MG 1.8 -- 1.6* 1.6* -- CA 9.0 -- 8.8 8.4* -- Assessment/Plan ACTIVE PROBLEM LIST Severe Protein-Calorie Malnutrition (Hcc) Nicotine use disorder, F17.2 Ards (Adult Respiratory Distress Syndrome) (Hcc) Status Post Tracheostomy (Hcc) Pleural Effusion Transudative Pancreatic Insufficiency (Hcc) Pharyngeal Dysphagia C. Difficile Diarrhea Iron Deficiency Anemia Secondary to Inadequate Dietary Iron Intake Anemia of Chronic Disease Stress-Induced Cardiomyopathy Refeeding Syndrome Dysphagia History of Seizures Stroke (Hcc) Anxiety and Depression Copd (Chronic Obstructive Pulmonary Disease) (Hcc) Luz (Obstructive Sleep Apnea) Htn (Hypertension) Chf (Congestive Heart Failure) (Hcc) Cad (Coronary Artery Disease) Hld (Hyperlipidemia) Subarachnoid Hemorrhage (Hcc) Diabetes Mellitus Type 2, Controlled, Without Complications (Hcc) Anticoagulated On Mechanically Assisted Ventilation (Hcc) Closed Fracture of Multiple Ribs of Right Side Closed Fracture of Body of Sternum Syncope and Collapse Alcohol Abuse Vocal Cord Dysfunction Hyponatremia ASSESSMENT/PLAN: Assessment & Plan Subarachnoid hemorrhage (HCC) - Neurosurgery consulted - Non operative management - Neuro checks Q 4 - Repeat CT brain: Stable - MRI 08/01: Small focus of diffusion restriction posterior LEFT aspect of the patsy - BEM DC 08/02 as no seizure activity noted. Moderate diffuse encephalopathy - 20 min BEM 08/06: negative - SBP goal: < 140 - DVT ppx: SQH - 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 - Seizure prophylaxis: keppra - PT/OT: AR - MM pain control - 08/08 repeat CTH stable Pharyngeal dysphagia - SANDING MACHINE OPERATOR OR TENDER eval: MBS Monday - Corpak placed 08/03 - Nutrition consult - NPO - Continue home PPI MBSS planned for 08/05- complete- vocal cord dysfunction - ENT consult Dr Euceda discussed via text- will set up out pt follow up Stress-induced cardiomyopathy - Most recent EF ~ 43% - Holding home entresto, aldactone and metop- resumed 08/05 - Repeat echo: LV moderately dilated with Lvef 55%, left atrial cavity severely dilated, mild MVR, and mild pHTN. Compared to prior exam from 05/2022 LV fx improved. 08/06- hold Aldactone due to hyponatremia today until seen by nephrology History of seizures - No home AEDs - Will continue keppra 1g BID - BEM DC 08/02 as no seizure activity noted. Moderate diffuse encephalopathy Anxiety and depression - Holding home lexapro and seroquel - Initially held d/t lack of enteral access, now held d/t prolonged qtc - Repeat EKG ordered for AM 08/05- EKG- complete , no prolonged QT- 379 -May resume Lexapro and seroquel today 08/08: Escitalopram discontinued. Receiving Seroquel, QTc 487. 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 Compared to prior exam from 05/2022 LV fx improved. - Tele Syncope and collapse - Unclear etiology of fall - Reports multiple falls and dizziness at home per - Echo: LV moderately dilated with Lvef 55%, left atrial cavity severely dilated, mild MVR, and mild pHTN. Compared to prior exam from 05/2022 LV fx improved. - Carotids: Bilateral carotid artery duplex with approximately 0-29% stenosis bilaterally. - Tele Alcohol abuse -Patient reported to be heavy drinker per family -Started on phenobarb taper 08/02, now completed -CIWA Severe protein-calorie malnutrition (HCC) - Nutrition consult Refeeding syndrome - Daily labs - Replete electrolytes as needed - Slow TF advancement, will keep at 20ml/hr today and advance in AM. Goal is 50ml/hr Vocal cord dysfunction - ENT consult - Spoke with Dr Euceda via text - He is to send Message to ENT scheduling team for out pt follow up Hyponatremia - Nephrology following. 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 FWF 50cc Q8h, continue salt tabs, no need for fluid restriction as not taking PO - Daily labs 08/09: Improving, NA 132 today Traumatic encephalopathy Evidence on 20min BEM UA with moderate bacteria, culture in process - Adding ceftriaxone pending urine culture VTE Prophylaxis: VTE prophylaxis appropriate VTE Prophy: SQH, SCDs Diet: NPO with TF PT/OT: [place] Dispo: RNF I spent a total of 35 minutes on the date of the service which included preparing to see the patient, [id number] patient care, completing clinical documentation, obtaining and/or reviewing separately obtained history, performing a medically appropriate examination, counseling and educating the pat ient/family/caregiver, ordering medications, tests, or procedures, communicating with other HCPs (not separately reported), independently interpreting results (not separately reported), communicatingresults to the patient/family/caregiver, and care coordination (not separately reported). SIGNATURE: Jenna Vazquez APRN.CNP PATIENT NAME: Saray Corbin DATE: August 09, 2024 TIME: 9:50 AM * Elaina Talavera, PT, DPT - 08/09/2024 9:21 AM EDT Physical Therapy Treatment Summary SERVICE DATE: 08/09/2024 SERVICE TIME: 848 to 904 ROOM: [place] [address] PT 6 Clicks Score: 9 DISCHARGE RECOMMENDATIONS Subacute/SNF Recommended Discharge Disposition Due to: Balance deficits, Functional status decline, Requires multiple therapy disciplines, Patient requires active, intensive rehabilitation by multiple therapy disciplines. Anticipate the patient will tolerate 3 hours of therapy per day. Anticipated Discharge Needs: Undetermined ASSESSMENT Response to Therapy Interventions: Cognitive Deficits, Limited Participation, Low Activity Tolerance, Multiple Ongoing Medical Issues Upon arrival, patient on continuous EEG. Pt AO x 0, moaning and with decreased/no command following. Unable to safely mobilize today beyond rolling to assist with damir-care. Due to decreased functional progress and cognitive limitations, discharge reocmmendations changed from AR to SNF. Discussed with trauma team and RN. PRECAUTIONS Fall Risk, Lines/Tubes/Drains, Impulsive with Activity, Seizure, Other: See Comments, Bed/Chair Alarm NPO CURRENT HOSPITAL COURSE 63 year old male with a who initially presented s/p mechanical fall with head strike on granite counter top with + LOC. Traumatic right SAH. Closed fracture of multiple ribs of right side - Subacute 9-12th posterior rib fractures. 08/05: MBSS Relevant Past Medical History: Alcohol abuse last drink 04/23/2022, Tobacco abuse, anxiety disorder,Depressive disorder, Seizure disorder, Current pancreatitis with complicating pseudocyst, hx strokewith residual LUE/LLE weakness HOME LIVING Patient Lives With: Spouse Assistance Available: 24-Hour Entry To Home: No Stairs Number Of Stairs To Bed/Bath: 0 (pt stays on first floor) Tub/Shower Type: Tub shower, shower chair, grab bars Laundry: spouse completes- 1st floor Equipment Owned: Walker- Wheeled, Wheelchair- Manual, Cane, Program Review Director PRIOR FUNCTIONAL LEVEL Within Functional Limits, Required Assistance Assistance Required With: Shopping, Laundry, Cleaning, Transportation pt is a questionable historian due to confusion; pt reporting IND with ADLs, spouse completes IADLs, -driving, ambulates with a rollator, hx of falls per chart SUBJECTIVE Pt nodding in agreement, but non-verbal throughout session. Moaning at times. RN/team aware of tolerance to session. THERAPY DIAGNOSIS Reduced mobility-other, Muscle Weakness (generalized) TREATMENT INTERVENTIONS Therapeutic Activity (05618) Timed Code Treatment (minutes): 16 Skilled Treatment Time (minutes): 16 TRAINING & EDUCATION PROVIDED Anatomy and Impact on Deficits, Bed Mobility, Benefits of In-Hospital Mobility, Discharge Planning,Energy Conservation, Positioning, Precautions/Restrictions, Role of Physical Therapy, Treatment Protocol THERAPEUTIC SKILLS USED Activity Dosing, Assessment of Tolerance Including Vitals Response to Activity, Bed in Chair Position, Cues for Sequencing/Proper Technique for Activity, Cuing Tactile, Cuing Verbal, Management of Critical Lines, Tubes and/or Drains, Physical Assist FUNCTIONAL STATUS Bed Mobility Rolling: Minimal Assistance Supine To Sit: Moderate Assistance NT-this date. Unsafe to mobilize Sit to Supine: Moderate Assistance Scooting: Moderate Assistance Transfers Bed to Chair Gait Stairs GOALS Patient will demonstrate progress to optimize functional mobility, maximize activity tolerance and endurance to maximize function upon discharge. Rehab Potential: Good Progress Toward Goals: Progressing slower than expected ACUTE CARE TREATMENT PLAN PT Frequency: 3 Times Per Week Treatment Interventions: Education, Energy Conservation Training, Strengthening, Functional Mobility Training, Balance Training, Neuromuscular Re-education, Pain Management Plan for Next Visit: Bed Mobility, Chair Transfer Training, Fall Prevention, Sit to Stand Transfers, Sitting Balance, Standing Balance, Standing Tolerance SIGNATURE: Elaina Talavera PT, DPT PATIENT NAME: Saray Corbin DATE: August 09, 2024 TIME: 9:21 AM * Jenna Vazquez APRN.KENO WRITER - 08/08/2024 2:51 PM EDT Documentation Query Please clarify the diagnosis of CHF: Chronic Diastolic CHF/HFpEF This document will become part of the patient's medical record. * Kerry Ramos, OT/L - 08/08/2024 1:53 PM EDT Occupational Therapy Treatment Summary SERVICE DATE: 08/08/2024 SERVICE TIME: 1315 to 1330 ROOM: [place] [address] OT 6 Clicks Score: 6 DISCHARGE RECOMMENDATIONS Acute Rehab Recommended Discharge Disposition Comments: AR versus SNF Recommended Discharge Disposition Due to: Functional deficits requiring ongoing therapy service prior to discharge home., Patient requires active, intensive rehabilitation by multiple therapy disciplines. Anticipate the patient will tolerate 3 hours of therapy per day., ADL impairment, Cognitive deficits new/worsened, Coordination deficits, Dominant side deficits, Functional status decline, Motorplanning deficits, Requires multiple therapy disciplines, Weakness less than 3/5 in upper extremity Anticipated Discharge Needs: Undetermined ASSESSMENT Response to Therapy Interventions: Limited Participation, Low Activity Tolerance, Cognitive Deficits Patient with worsening cognition compared to OT eval. Patient tolerating oral care (some engagementwith max cues and total A) and face washing (patient resisting bring UE to face). May need to consider SNF if patient cognition/ability to care for himself does not improve while in acute care setting. PRECAUTIONS Fall Risk, Lines/Tubes/Drains, Impulsive with Activity, Seizure, Other: See Comments, Bed/Chair Alarm NPO CURRENT HOSPITAL COURSE 63 year old male with a who initially presented s/p mechanical fall with head strike on granite counter top with + LOC. Traumatic right SAH. Closed fracture of multiple ribs of right side - Subacute 9-12th posterior rib fractures. 08/05: MBSS Relevant Past Medical History: Alcohol abuse last drink 04/23/2022, Tobacco abuse, anxiety disorder,Depressive disorder, Seizure disorder, Current pancreatitis with complicating pseudocyst, hx strokewith residual LUE/LLE weakness HOME LIVING Patient Lives With: Spouse Assistance Available: 24-Hour Entry To Home: No Stairs Number Of Stairs To Bed/Bath: 0 (pt stays on first floor) Tub/Shower Type: Tub shower, shower chair, grab bars Laundry: spouse completes- 1st floor Equipment Owned: Walker- Wheeled, Wheelchair- Manual, Cane, Program Review Director PRIOR FUNCTIONAL LEVEL Within Functional Limits, Required Assistance Assistance Required With: Shopping, Laundry, Cleaning, Transportation pt is a questionable historian due to confusion; pt reporting IND with ADLs, spouse completes IADLs, -driving, ambulates with a rollator, hx of falls per chart Baseline Cognition: Oriented to situation, Oriented to time, Oriented to place, Oriented to self SUBJECTIVE Per RN, ok to see; not following commands for her this date. Patient observed to be resting in bed with knees tucked towards chest and attempting to pull his gown off. COGNITION Communication Deficits: Non-verbal (Moaning/making sounds during session. Only word heard was ok after OT saying I will be back, ok? ) Orientation Deficits: Not oriented to Person, Not oriented to Place, Not oriented to Time, Not oriented to Situation (Looking when his name is called; unable to state his name or answer any other orientation questions.) Responsiveness: Drowsy, Awake (awake upon arrival; intermittent drowsiness during session) Follows Commands: 1-step Commands, With Increased Time, With Repetition, Cueing Needed (following less than 25% of commands.) Cueing to Follow Commands: Maximum Memory Deficits: Short Term, Recall of Recent Events Executive Function Deficits: (Grossly impaired and appears to be worse compared to OT eval on 08/03.) Cog 6 Start of Session Total Points (Max Score = 24): 11 (08/08/24) Cog 6 End of Session Total Points (Max Score = 24): 12 (08/08/24) THERAPY DIAGNOSIS Decreased activities of daily living (ADL), Reduced mobility-other, Muscle Weakness (generalized), Unsteadiness on feet, General symptoms and signs-other, Difficulty walking-musculoskeletal, Signs and Symptoms Involving Cognitive Functions and Awareness, Lack of coordination-other TREATMENT INTERVENTIONS Cognitive Training (21328 and 02323) Timed Code Treatment (minutes): 15 Skilled Treatment Time (minutes): 15 TRAINING & EDUCATION PROVIDED Attention Diversion Techniques, Cognitive Prosthetics, Cognitive Skills, Cognitive Stimulation Activities, Command Following, Delirium Reduction Techniques, Environmental Modification, Expected Functional Level, Grooming Tasks, Patient Exercise/Therapy Program Support Needs, Positioning, Precautions /Restrictions, Safety/Judgment, Role of Occupational Therapy THERAPEUTIC SKILLS USED Activity Dosing, Behavioral Strategies, Cues for Sequencing/Proper Technique for Activity, Cuing Tactile, Cuing Verbal, Cuing Visual, Therapeutic Use of Self, Physical Assist, Movement Facilitation, Sensory Facilitation FUNCTIONAL STATUS Activities of Daily Living Assist Level Additional Information Feeding Total Assistance Grooming Total Assistance (Pt. completing less than 25% of task to complete oral care with suction swab and wash cloth. Did demo some movement of swab with max cues. Unable to complete face washing due to resistance of UE movement with wash cloth in hand.) (.) Bathing Upper Body Total Assistance Bathing Lower Body Total Assistance Dressing Upper Body Total Assistance Dressing Lower Body Total Assistance Toileting Total Assistance Mobility Assist Level Additional Information Bed Mobility Rolling: (Deferred any bed mobility due to safety concerns with poor command follow.) Supine To Sit: Maximal Assistance (assist to logroll and bring B LE's off bed, assist to elevate trunk due to confusion and weakness) Not completed on this date. Sit To Supine: Maximal Assistance Sit to Stand Additional Information (unable to attempt, pt dizzy sitting EOB) Not completed on this date. Stand to Sit Bed to Chair Toilet/Commode Shower Functional Mobility GOALS Patient will demonstrate progress to optimize self-care activities, cognitive and/or coping to maximize function upon discharge. Rehab Potential: Fair Fair Rehab Potential Due To: (change in cog with decreased command follow) ACUTE CARE TREATMENT PLAN OT Frequency: 3 Times Per Week Treatment Interventions: Education, Self Care/Home Management, Energy Conservation Training, Joint Mobility, Strengthening, Functional Mobility Training, Balance Training, Neuromuscular Re-education Plan for Next Visit: (Simple command follow) SIGNATURE: Kerry Ramos OT/L PATIENT NAME: Saray Corbin DATE: August 08, 2024 TIME: 1:53 PM * Sabra Gray CCC-SANDING MACHINE OPERATOR OR TENDER - 08/08/2024 11:15 AM EDT SPEECH THERAPY MISSED VISIT SERVICE DATE: 08/08/2024 SERVICE TIME: 1115 ROOM: [place] [id number] Patient not seen due to Clinical Appropriateness. SIGNATURE: Sabra Gray CCC-SANDING MACHINE OPERATOR OR TENDER PATIENT NAME: Saray Corbin DATE: August 08, 2024 TIME: 11:15 AM * Jenna Vazquez APRN.KENO WRITER - 08/08/2024 9:03 AM EDT TRAUMA PROGRESS NOTE SERVICE DATE: 08/08/2024 SERVICE TIME: 9:03 AM Subjective HISTORY (LAST 24 HOURS): Seen and examined at bedside. Patient lethargic on exam, will open eyes spontaneously, intermittently track throughout room, and CORADO spontaneously but not following commands.Will grunt or moan with repositioning. Repeat CT brain this AM with improvement. EEG with severe diffuse encephalopathy and no epileptiform discharges or EEG seizures. 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 Replacing electrolytes given refeeding syndrome. Unable to participate with PT/OT given mental status. Not yet medically optimized for discharge. Current Facility-Administered Medications Medication Dose Route Frequency ondansetron 4 mg tab(s) (ZOFRAN) 4 mg ORAL q 6 H PRN Or ondansetron (PF) 4 mg injection (ZOFRAN) 4 mg INTRAVENOUS q 6 H PRN dextrose 40 % 15 g 15 g ORAL PRN Or glucagon 1 mg injection 1 mg INTRAMUSCULAR PRN Or dextrose 10% iv bolus 12.5 g INTRAVENOUS PRN hydrALAZINE 10 mg injection (APRESOLINE) 10 mg INTRAVENOUS q 6 H PRN NaCl 0.9% iv flush bag 20 mL INTRAVENOUS PRN acetaminophen 650 mg tab(s) (TYLENOL) 650 mg ORAL q 6 H PRN oxyCODONE IR 2.5 mg tab(s) (ROXICODONE) 2.5 mg ORAL q 6 H PRN fentaNYL 50 mcg/mL 25 mcg injection (SUBLIMAZE) 25 mcg INTRAVENOUS q 4 H PRN labetalol 5 mg injection (NORMODYNE) 5 mg INTRAVENOUS q 2 H PRN heparin 5,000 Units injection 5,000 Units SUBCUTANEOUS q 12 H diazePAM 5 mg injection (VALIUM) 5 mg INTRAVENOUS q 2 H PRN Or diazePAM 10 mg injection (VALIUM) 10 mg INTRAVENOUS q 2 H PRN insulin lispro injection (rapid acting) (ADMElog) SUBCUTANEOUS q 6 H thiamine 100 mg tab(s) (VITAMIN B1) 100 mg ORAL DAILY pantoprazole 40 mg injection (PROTONIX) 40 mg INTRAVENOUS DAILY (6 AM) rosuvastatin 20 mg tab(s) (CRESTOR) 20 mg NASOGASTRIC DAILY folic acid 1 mg tab(s) 1 mg ORAL/FEEDING TUBE DAILY [Order Held by LIP] escitalopram oxalate 30 mg tab(s) (LEXAPRO) 30 mg ORAL DAILY QUEtiapine 50 mg tab(s) (SEROquel) 50 mg ORAL AT BEDTIME sacubitril-valsartan 24-26 mg 1 tablet (ENTRESTO) 1 tablet ORAL BID spironolactone 12.5 mg tab(s) (ALDACTONE) 12.5 mg ORAL DAILY metoprolol tartrate (short acting) 25 mg tab(s) (LOPRESSOR) 25 mg ORAL q 12 H urea 15 g oral powder (URE-NA) 15 g ORAL/FEEDING TUBE DAILY sodium chloride 2 g soluble tab(s) 2 g ORAL/FEEDING TUBE TID magnesium sulfate iv piggyback in sterile water 2 g 50 mL 2 g INTRAVENOUS ONCE Objective PHYSICAL EXAM: Temp (24hrs), Av ??C (98.6 ??F), Min:36.7 ??C (98.1 ??F), Max:37.6 ??C (99.7 ??F) BP 141/74 Pulse 104 Temp (Src) 98.2 (Axillary) Resp 18 Ht 5' 8.898 (1.75m) Wt 132 lb 15 oz (60.3kg) SpO2 96% BMI 19.69 kg/(m^2). O2 Therapy: Room Air Genl: Appears age appropriate. No acute distress. Resting comfortably. Head/Face: Normocephalic. Right temporal abrasion Eyes: PERRLA. EOMI. Sclera not icteric ENMT: External auditory canals clear. Oropharynx is clear. Nasopharynx is clear. Neck: No mid-line masses. No bruits. No LAD. C-spine non-tender. Back: T & L Spine non-tender, no step-offs noted. No flank tenderness. Resp: Breathing is easy and unlabored. No adventitious lung sounds. Equal air entry throughout all lobes. No stridor, retractions, or accessory muscle use. Oropharyngeal secretions cleared with suction. CVS: RRR. No murmur, rub, gallop. 2+ pulses at RA, DP, PT bilat. GI: Abdomen is soft, non-tender, not distended. Bowel sounds normal. Right nare corpak in place MSK: Extremities without clubbing, cyanosis, edema. Normal ROM x 4. Skin: Warm and dry. No lesions of concern. Not jaundiced. Right elbow abrasion Neuro: A&Ox0 mumbling no distinct words , moving spontaneously, not following commands Psych: AMS changes LABS/IMAGING (pertinent to today's evaulation): Imaging reviewed today: Labs: Recent Labs 08/08/24 0448 08/07/24 1111 08/07/24 0729 08/06/24 0742 WBC -- -- 11.91* -- HB -- -- 7.8* -- HCT -- -- 25.6* -- PLT -- -- 524* -- NA 126* 125* -- 128* K 4.0 3.7 -- 4.0 CHLOR 94* 95* -- 94* CO2 21* 22 -- 22 CREAT 0.54* 0.54* -- 0.51* P 2.5* 2.9 -- 3.2 BUN 10 19 -- 8* GLUC 152* 126* -- 117* ALB 3.7* 3.4* -- 3.4* MG 1.6* 1.6* -- 1.5* CA 8.8 8.4* -- 8.4* Assessment/Plan ACTIVE PROBLEM LIST Severe Protein-Calorie Malnutrition (Hcc) Nicotine use disorder, F17.2 Ards (Adult Respiratory Distress Syndrome) ([facility]) Status Post Tracheostomy ([facility]) Pleural Effusion Transudative Pancreatic Insufficiency ([facility]) Pharyngeal Dysphagia C. Difficile Diarrhea Iron Deficiency Anemia Secondary to Inadequate Dietary Iron Intake Anemia of Chronic Disease Stress-Induced Cardiomyopathy Refeeding Syndrome Dysphagia History of Seizures Stroke ([facility]) Anxiety and Depression Copd (Chronic Obstructive Pulmonary Disease) ([facility]) Luz (Obstructive Sleep Apnea) Htn (Hypertension) Chf (Congestive Heart Failure) ([facility]) Cad (Coronary Artery Disease) Hld (Hyperlipidemia) Subarachnoid Hemorrhage ([facility]) Diabetes Mellitus Type 2, Controlled, Without Complications ([facility]) Anticoagulated On Mechanically Assisted Ventilation ([facility]) Closed Fracture of Multiple Ribs of Right Side Closed Fracture of Body of Sternum Syncope and Collapse Alcohol Abuse Vocal Cord Dysfunction Hyponatremia ASSESSMENT/PLAN: Assessment & Plan Subarachnoid hemorrhage (HCC) - Neurosurgery consulted - Non operative management - Neuro checks Q 4 - Repeat CT brain: Stable - MRI 08/01: Small focus of diffusion restriction posterior LEFT aspect of the patsy - BEM DC 08/02 as no seizure activity noted. Moderate diffuse encephalopathy - 20 min BEM 08/06: negative - SBP goal: < 140 - DVT ppx: SQH - 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 - Seizure prophylaxis: keppra - PT/OT: AR - MM pain control - 08/08 repeat CTH stable Pharyngeal dysphagia - SANDING MACHINE OPERATOR OR TENDER eval: MBS Monday - Corpak placed 08/03 - Nutrition consult - NPO - Continue home PPI MBSS planned for 08/05- complete- vocal cord dysfunction - ENT consult Dr Euceda discussed via text- will set up out pt follow up Stress-induced cardiomyopathy - Most recent EF ~ 43% - Holding home entresto, aldactone and metop- resumed 08/05 - Repeat echo: LV moderately dilated with Lvef 55%, left atrial cavity severely dilated, mild MVR, and mild pHTN. Compared to prior exam from 05/2022 LV fx improved. 08/06- hold Aldactone due to hyponatremia today until seen by nephrology History of seizures - No home AEDs - Will continue keppra 1g BID - BEM DC 08/02 as no seizure activity noted. Moderate diffuse encephalopathy Anxiety and depression - Holding home lexapro and seroquel - Initially held d/t lack of enteral access, now held d/t prolonged qtc - Repeat EKG ordered for AM 08/05- EKG- complete , no prolonged QT- 379 -May resume Lexapro and seroquel today 08/08: Escitalopram discontinued. Receiving Seroquel, QTc 487. 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 Compared to prior exam from 05/2022 LV fx improved. - Tele Syncope and collapse - Unclear etiology of fall - Reports multiple falls and dizziness at home per - Echo: LV moderately dilated with Lvef 55%, left atrial cavity severely dilated, mild MVR, and mild pHTN. Compared to prior exam from 05/2022 LV fx improved. - Carotids: Bilateral carotid artery duplex with approximately 0-29% stenosis bilaterally. - Tele Alcohol abuse -Patient reported to be heavy drinker per family -Started on phenobarb taper 08/02, now completed -CIWA Severe protein-calorie malnutrition (HCC) - Nutrition consult Refeeding syndrome - Daily labs - Replete electrolytes as needed - Slow TF advancement, will keep at 20ml/hr today and advance in AM. Goal is 50ml/hr Vocal cord dysfunction - ENT consult - Spoke with Dr Euceda via text - He is to send Message to ENT scheduling team for out pt follow up Hyponatremia - Nephrology following. 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 FWF 50cc Q8h, continue salt tabs, no need for fluid restriction as not taking PO - Daily labs VTE Prophylaxis: VTE prophylaxis appropriate VTE Prophy: SQH, SCDs Diet: NPO with TF PT/OT: ROME Dispo: RNF I spent a total of 35 minutes on the date of the service which included preparing to see the patient, [id number] patient care, completing clinical documentation, obtaining and/or reviewing separately obtained history, performing a medically appropriate examination, counseling and educating the pat ient/family/caregiver, ordering medications, tests, or procedures, communicating with other HCPs (not separately reported), independently interpreting results (not separately reported), communicatingresults to the patient/family/caregiver, and care coordination (not separately reported). SIGNATURE: Jenna Vazquez APRN.CNP PATIENT NAME: Saray Corbin DATE: August 08, 2024 TIME: 9:03 AM * Sabra Don CCC-SLP - 08/07/2024 1:15 PM EDT SPEECH THERAPY MISSED VISIT SERVICE DATE: 08/07/2024 SERVICE TIME: 1315 ROOM: [place] [id number] Patient not seen due to Clinical Appropriateness. Patient lethargic, not opening eyes, moaning. SIGNATURE: TYRON Silver PATIENT NAME: Saray Corbin DATE: August 07, 2024 TIME: 1:15 PM * Lor Parnell OT/Gennaro - 08/07/2024 11:26 AM EDT OCCUPATIONAL THERAPY MISSED VISIT SERVICE DATE: 08/07/2024 SERVICE TIME: 1126 ROOM: [place] [id number] Patient not seen due to Clinical Appropriateness per RN. SIGNATURE: Lor Parnell OT/Gennaro PATIENT NAME: Saray Corbin DATE: August 07, 2024 TIME: 11:26 AM * Nicci Suazo LSW - 08/07/2024 9:57 AM EDT CARE MANAGEMENT PROGRESS NOTE SERVICE DATE: 08/07/2024 SERVICE TIME: 9:57 AM LOS: 7 days Plan is for [facility] [place] once medically ready. Patient will need precert. CM will continue to follow and will initiate precert once Patient is closer to discharge. Discharge packet is on chart, MMT trip to facility is on will call. SIGNATURE: RUTH Jack PATIENT NAME: Saray Corbin DATE: August 07, 2024 TIME: 9:57 AM * Black Carter APRN.CNP - 08/07/2024 9:34 AM EDT TRAUMA PROGRESS NOTE SERVICE DATE: 08/07/2024 SERVICE TIME: 0920 Subjective HISTORY (LAST 24 HOURS): No acute events overnight. Patient lethargic on exam, will open eyes spontaneously, intermittently track throughout room, and CORADO spontaneously but not following commands. Will grunt or moan with repositioning. Occasionally will say what with repeated questioning. CT brain yesterday stable to improved. 20 minute EEG with severe diffuse encephalopathy and no epileptiformdischarges or EEG seizures. Worsening encephalopathy likely 2/2 metabolic causes I/s/o hyponatremia. Nephrology consulted d/t c/f of SIADH. 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 AM labs pending, will need follow up. PT/OT recommending AR at time of discharge. Not medically ready for discharge at this time. Update 1255: AM labs notable for serum Na 125 from 128 yesterday. Discussed with Nephrology team. Na tabs increased to 2g TID, NaCL drip stopped, and Urea powder ordered. Repeat BEM. Home Lexapro stopped as well I/s/o worsening hypoNa. Current Facility-Administered Medications Medication Dose Route Frequency ondansetron 4 mg tab(s) (ZOFRAN) 4 mg ORAL q 6 H PRN Or ondansetron (PF) 4 mg injection (ZOFRAN) 4 mg INTRAVENOUS q 6 H PRN dextrose 40 % 15 g 15 g ORAL PRN Or glucagon 1 mg injection 1 mg INTRAMUSCULAR PRN Or dextrose 10% iv bolus 12.5 g INTRAVENOUS PRN hydrALAZINE 10 mg injection (APRESOLINE) 10 mg INTRAVENOUS q 6 H PRN NaCl 0.9% iv flush bag 20 mL INTRAVENOUS PRN acetaminophen 650 mg tab(s) (TYLENOL) 650 mg ORAL q 6 H PRN oxyCODONE IR 2.5 mg tab(s) (ROXICODONE) 2.5 mg ORAL q 6 H PRN fentaNYL 50 mcg/mL 25 mcg injection (SUBLIMAZE) 25 mcg INTRAVENOUS q 4 H PRN labetalol 5 mg injection (NORMODYNE) 5 mg INTRAVENOUS q 2 H PRN heparin 5,000 Units injection 5,000 Units SUBCUTANEOUS q 12 H diazePAM 5 mg injection (VALIUM) 5 mg INTRAVENOUS q 2 H PRN Or diazePAM 10 mg injection (VALIUM) 10 mg INTRAVENOUS q 2 H PRN insulin lispro injection (rapid acting) (ADMElog) SUBCUTANEOUS q 6 H thiamine 100 mg injection 100 mg INTRAVENOUS TID [START ON 08/08/2024] thiamine 100 mg tab(s) (VITAMIN B1) 100 mg ORAL DAILY pantoprazole 40 mg injection (PROTONIX) 40 mg INTRAVENOUS DAILY (6 AM) rosuvastatin 20 mg tab(s) (CRESTOR) 20 mg NASOGASTRIC DAILY folic acid 1 mg tab(s) 1 mg ORAL/FEEDING TUBE DAILY escitalopram oxalate 30 mg tab(s) (LEXAPRO) 30 mg ORAL DAILY QUEtiapine 50 mg tab(s) (SEROquel) 50 mg ORAL AT BEDTIME sacubitril-valsartan 24-26 mg 1 tablet (ENTRESTO) 1 tablet ORAL BID [Order Held by LIP] spironolactone 12.5 mg tab(s) (ALDACTONE) 12.5 mg ORAL DAILY metoprolol tartrate (short acting) 25 mg tab(s) (LOPRESSOR) 25 mg ORAL q 12 H NaCl 0.9% iv infusion 50 mL/hr INTRAVENOUS CONTINUOUS Objective PHYSICAL EXAM: Temp (24hrs), Av.8 ??C (98.2 ??F), Min:36.3 ??C (97.3 ??F), Max:37.1 ??C (98.8 ??F) BP 142/71 Pulse 96 Temp (Src) 98.8 (Axillary) Resp 17 Ht 5' 8.898 (1.75m) Wt 132 lb 15 oz (60.3kg) SpO2 94% BMI 19.69 kg/(m^2). O2 Therapy: Room Air Genl: Appears age appropriate. No acute distress. Resting comfortably. Head/Face: Normocephalic. Right temporal abrasion Eyes: PERRLA. EOMI. Sclera not icteric ENMT: External auditory canals clear. Oropharynx is clear. Nasopharynx is clear. Neck: No mid-line masses. No bruits. No LAD. C-spine non-tender. Back: T & L Spine non-tender, no step-offs noted. No flank tenderness. Resp: Lungs clear bilat. No wheezes. No rales. Breathing is non-labored. CVS: RRR. No murmur, rub, gallop. 2+ pulses at RA, DP, PT bilat. GI: Abdomen is soft, non-tender, not distended. Bowel sounds normal. No peritonitis. corpak in place MSK: Extremities without clubbing, cyanosis, edema. Normal ROM x 4. Skin: Warm and dry. No lesions of concern. Not jaundiced. Right elbow abrasion Neuro: A&Ox0 mumbling no distinct words , moving spontaneously, not following commands Psych: AMS changes LABS/IMAGING (pertinent to today's evaulation): Imaging reviewed today: Labs: Recent Labs 08/07/24 0729 08/06/24 0742 08/05/24195808/05/24 06 WBC 11.91* -- -- -- HB 7.8* -- -- -- HCT 25.6* -- -- -- PLT 524* -- -- -- NA -- 128* 128* 129* K -- 4.0 4.0 3.8 CHLOR -- 94* 94* 96* CO2 -- 22 22 22 CREAT -- 0.51* 0.50* 0.50* P -- 3.2 3.1 3.1 BUN -- 8* 7* 7* GLUC -- 117* 121* 124* ALB -- 3.4* 3.3* 3.1* MG -- 1.5* 1.7 1.6* CA -- 8.4* 8.4* 8.5 Assessment/Plan ACTIVE PROBLEM LIST Severe Protein-Calorie Malnutrition (Hcc) Nicotine use disorder, F17.2 Ards (Adult Respiratory Distress Syndrome) ([facility]) Status Post Tracheostomy ([facility]) Pleural Effusion Transudative Pancreatic Insufficiency ([facility]) Pharyngeal Dysphagia C. Difficile Diarrhea Iron Deficiency Anemia Secondary to Inadequate Dietary Iron Intake Anemia of Chronic Disease Stress-Induced Cardiomyopathy Refeeding Syndrome Dysphagia History of Seizures Stroke ([facility]) Anxiety and Depression Copd (Chronic Obstructive Pulmonary Disease) ([facility]) Luz (Obstructive Sleep Apnea) Htn (Hypertension) Chf (Congestive Heart Failure) ([facility]) Cad (Coronary Artery Disease) Hld (Hyperlipidemia) Subarachnoid Hemorrhage ([facility]) Diabetes Mellitus Type 2, Controlled, Without Complications ([facility]) Anticoagulated On Mechanically Assisted Ventilation ([facility]) Closed Fracture of Multiple Ribs of Right Side Closed Fracture of Body of Sternum Syncope and Collapse Alcohol Abuse Vocal Cord Dysfunction Hyponatremia ASSESSMENT/PLAN: Assessment & Plan Subarachnoid hemorrhage (HCC) - Neurosurgery consulted - Non operative management - Neuro checks Q 4 - Repeat CT brain: Stable - MRI 08/01: Small focus of diffusion restriction posterior LEFT aspect of the patsy - BEM DC 08/02 as no seizure activity noted. Moderate diffuse encephalopathy - 20 min BEM 08/06: negative - SBP goal: < 140 - DVT ppx: SQH - 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 - Seizure prophylaxis: keppra - PT/OT: AR - MM pain control - 08/06 repeat CTH stable Pharyngeal dysphagia - SANDING MACHINE OPERATOR OR TENDER eval: MBS Monday - Corpak placed 08/03 - Nutrition consult - NPO - Continue home PPI MBSS planned for 08/05- complete- vocal cord dysfunction -ENT consult Dr Euceda discussed via text- will set up out pt follow up Stress-induced cardiomyopathy - Most recent EF ~ 43% - Holding home entresto, aldactone and metop- resumed 08/05 - Repeat echo: LV moderately dilated with Lvef 55%, left atrial cavity severely dilated, mild MVR, and mild pHTN. Compared to prior exam from 05/2022 LV fx improved. 08/06- hold Aldactone due to hyponatremia today until seen by nephrology History of seizures - No home AEDs - Will continue keppra 1g BID - BEM DC 08/02 as no seizure activity noted. Moderate diffuse encephalopathy Anxiety and depression - Holding home lexapro and seroquel - Initially held d/t lack of enteral access, now held d/t prolonged qtc - Repeat EKG ordered for AM 08/05- EKG- complete , no prolonged QT- 379 -May resume Lexapro and seroquel today Diabetes mellitus type 2, controlled, without complications (HCC) - Hold Farxiga - SSI - Accu checks AC/HS Anticoagulated - No current AC use - Only on plavix - Given TXA at OSH - Continue to monitor platelets On mechanically assisted ventilation (HCC) - Intubated for airway protection - Extubated 08/01 - Close respiratory monitoring Stroke (HCC) - 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 Compared to prior exam from 05/2022 LV fx improved. - Tele Syncope and collapse - Unclear etiology of fall - Reports multiple falls and dizziness at home per - Echo: LV moderately dilated with Lvef 55%, left atrial cavity severely dilated, mild MVR, and mild pHTN. Compared to prior exam from 05/2022 LV fx improved. - Carotids: Bilateral carotid artery duplex with approximately 0-29% stenosis bilaterally. - Tele Alcohol abuse -Patient reported to be heavy drinker per family -Started on phenobarb taper 08/02, now completed -MAI Severe protein-calorie malnutrition (HCC) -Nutrition consult Refeeding syndrome -daily labs -Replete electrolytes as needed -Slow TF advancement, will keep at 20ml/hr today and advance in AM. 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 Reduce FWF, continue salt tabs, no need for fluid restriction as not taking PO -Daily labs -AM labs pending, will follow up VTE Prophylaxis: VTE prophylaxis appropriate SQH, SCDs Diet: NPO with TF PT/OT: ROME Dispo: RNF I spent a total of 35 minutes on the date of the service which included preparing to see the patient, [id number] patient care, completing clinical documentation, obtaining and/or reviewing separately obtained history, performing a medically appropriate examination, counseling and educating the pat ient/family/caregiver, ordering medications, tests, or procedures, communicating with other HCPs (not separately reported), independently interpreting results (not separately reported), communicatingresults to the patient/family/caregiver, and care coordination (not separately reported). SIGNATURE: Black Carter APRN.CNP PATIENT NAME: Saray Corbin DATE: August 07, 2024 TIME: 9:34 AM * Elaina Talavera, PT, DPT - 08/06/2024 12:23 PM EDT Physical Therapy Treatment Summary SERVICE DATE: 08/06/2024 SERVICE TIME: 1138 to 1202 ROOM: [place] [id number] PT 6 Clicks Score: 9 DISCHARGE RECOMMENDATIONS Acute Rehab Recommended Discharge Disposition Due to: Balance deficits, Functional status decline, Requires multiple therapy disciplines, Patient requires active, intensive rehabilitation by multiple therapy disciplines. Anticipate the patient will tolerate 3 hours of therapy per day. Anticipated Discharge Needs: Undetermined ASSESSMENT Response to Therapy Interventions: Cognitive Deficits, Limited Participation, Low Activity Tolerance Pt able to tolerate brief EOB sitting activity today. Decreased command following and confusion noted. Re-direction required throughout session. Limited by functional weakness as well and therefore unable to attempt standing trial. PRECAUTIONS Fall Risk, Lines/Tubes/Drains, Impulsive with Activity, Seizure, Other: See Comments, Bed/Chair Alarm NPO CURRENT HOSPITAL COURSE 63 year old male with a who initially presented s/p mechanical fall with head strike on granite counter top with + LOC. Traumatic right SAH. Closed fracture of multiple ribs of right side - Subacute 9-12th posterior rib fractures. 08/05: MBSS Relevant Past Medical History: Alcohol abuse last drink 04/23/2022, Tobacco abuse, anxiety disorder,Depressive disorder, Seizure disorder, Current pancreatitis with complicating pseudocyst, hx strokewith residual LUE/LLE weakness HOME LIVING Patient Lives With: Spouse Assistance Available: 24-Hour Entry To Home: No Stairs Number Of Stairs To Bed/Bath: 0 (pt stays on first floor) Tub/Shower Type: Tub shower, shower chair, grab bars Laundry: spouse completes- 1st floor Equipment Owned: Walker- Wheeled, Wheelchair- Manual, Cane, Program Review Director PRIOR FUNCTIONAL LEVEL Within Functional Limits, Required Assistance Assistance Required With: Shopping, Laundry, Cleaning, Transportation pt is a questionable historian due to confusion; pt reporting IND with ADLs, spouse completes IADLs, -driving, ambulates with a rollator, hx of falls per chart SUBJECTIVE Pt agreeable to PT session, nodding in agreement. THERAPY DIAGNOSIS Reduced mobility-other, Muscle Weakness (generalized) TREATMENT INTERVENTIONS Therapeutic Activity (91195) Timed Code Treatment (minutes): 24 Skilled Treatment Time (minutes): 24 TRAINING & EDUCATION PROVIDED Anatomy and Impact on Deficits, Bed Mobility, Benefits of In-Hospital Mobility, Discharge Planning,Energy Conservation, Exercise Program, Positioning, Precautions/Restrictions, Role of Physical Therapy, Treatment Protocol, Sitting Balance THERAPEUTIC SKILLS USED Activity Dosing, Assessment of Tolerance Including Vitals Response to Activity, Bed in Chair Position, Cues for Sequencing/Proper Technique for Activity, Cuing Tactile, Cuing Verbal, Management of Critical Lines, Tubes and/or Drains, Physical Assist FUNCTIONAL STATUS Bed Mobility Rolling: Minimal Assistance Supine To Sit: Moderate Assistance Sit to Supine: Moderate Assistance Scooting: Moderate Assistance Transfers Bed to Chair Gait Stairs GOALS Patient will demonstrate progress to optimize functional mobility, maximize activity tolerance and endurance to maximize function upon discharge. Rehab Potential: Good Progress Toward Goals: Progressing slower than expected ACUTE CARE TREATMENT PLAN PT Frequency: 4 Times Per Week (1) Treatment Interventions: Education, Energy Conservation Training, Strengthening, Functional Mobility Training, Balance Training, Neuromuscular Re-education, Pain Management Plan for Next Visit: Bed Mobility, Chair Transfer Training, Fall Prevention, Sit to Stand Transfers, Sitting Balance, Standing Balance, Standing Tolerance SIGNATURE: Elaina Talavera PT, PAGET PATIENT NAME: Saray Corbin DATE: August 06, 2024 TIME: 12:23 PM * Nicci Suazo LSW - 08/06/2024 11:00 AM EDT CARE MANAGEMENT PROGRESS NOTE SERVICE DATE: 08/06/2024 SERVICE TIME: 11:01 AM LOS: 6 days Patient is awaiting repeat CT. CM spoke with Patient and his Christine at bedside yesterday; Christine agreed that [facility] is [facility], but that she is hopeful he will not need [facility] at the time of discharge. If plan remains for Patient to go to [facility], he will need precert prior to dc. [facility] is able toaccept Patient with the [facility]ak if needed. Discharge packet is on chart, MMT trip to facility is on will call. SIGNATURE: RUTH Jack PATIENT NAME: Saray Corbin DATE: August 06, 2024 TIME: 11:00 AM * Post, JOI Vasquez-SANDING MACHINE OPERATOR OR TENDER - 08/06/2024 9:36 AM EDT Speech Therapy Treatment SERVICE DATE: 08/06/2024 SERVICE TIME: 1115 to 1130 ROOM: [place] [id number] IMPRESSION Evidence of: Oropharyngeal dysphagia (per recent MBSS on 08/05/24) An elevated risk for aspiration: Yes Swallow Efficiency: Preserved Dysphagia Tx completed. See below for results of today's session: RECOMMENDATIONS Diet Recommendations NPO with alternative means of nutrition May have small, single crushed ice chips for comfort if cleared by the physician under the following conditions: 1. Aggressive oral care prior to ice chips (gums, teeth, tongue, roof of mouth, etc.) 2. Ice chips given under supervision of the RN/PCNA 3. No more than 5-10 ice chips per sitting up to 3-5 times per day 4. 1 Ice chip given at a time Swallow Strategy Recommendations Rigid Oral Hygiene Nursing Recommendations Routine Rigid Oral Hygiene, Allowance for ice chips Instrumental Swallow Study Recommendations (continue to reassess swallow function and readiness forrepeat MBSS or a FEES prior to diet advancement) Recommended Consults ENT (recommended from MBSS 08/05/24) Response to Therapy Interventions: Fatigue, Confusion interferes with education, Limited participation, Requires additional time/repetition, Needs frequent redirection Rehabilitation Precautions: Aspiration Precautions, Dysphagia, Cognitive Linguistics Deficits DISCHARGE RECOMMENDATIONS Recommended Discharge Disposition: Acute Rehab Recommended Discharge Disposition Comments: dysphagia Tx; cognitive evaluation when able to fully participate Justification for Recommended Discharge Disposition: Patient requires an intensive inpatient rehabilitation therapy program due to:, aspiration risk requiring ongoing medical management, dysphagia requiring frequent assessment and diet modification, ongoing instrumental swallow assessment needs CURRENT HOSPITAL COURSE Patient was transferred from [facility] as a Trauma II following a recent fall at home wherehe hit his right evangelical on a countertop with +LOC. Patient presents wtih a traumatic subarachnoid hemorrhage. 08/01: Brain MRI: Small focus of diffusion restriction posterior LEFT aspect of the patsy as above. Stable intraventricular blood products. 08/01: Chest CT: 1. Acute versus subacute posterior RIGHT 9th-12th rib fxs. 2. Subacute appearing transverse sternum fracture. 3. Trace RIGHT pleural effusion. 4. Mild centrilobular emphysema. 5. Incidental 17 mm groundglass nodule in the RIGHT upper lobe. Recommend follow-up chest CT in 6-12 months. 6. Hepatic steatosis. 08/05: dobhoff tube in place Reason for Speech Therapy Consult: Swallow evaluation 2* patient failing the RN swallow screen and due to recent intubation 07/31-08/01/24. In addition, cognitive evaluation recommended 2* patient suffering a recent fall with +LOC and Dx of a subarachnoid hemorrhage. Relevant Past Medical History: Oropharyngeal Dysphagia, HTN, Alcohol Abuse, Anemia, Stroke, COPD, CHF, Pancreatitis, Adult respiratory distress syndrome, Arthritis, CAD, Depression, Anxiety, GERD, Seizure, s/p Tracheostomy (2022), Stroke with residual lower weakness, LUZ HOME ENVIRONMENT / PRIOR FUNCTIONAL LEVEL Prior Functional Level: Required Assistance Patient Lives With: Spouse Assistance Required With: Transportation, Medication Management, Meals Assistance Available: Unable to determine at this time Prior Swallowing Function/Diet Textures: Regular Consistency, Thin Liquids IDDSI Level 0 SUBJECTIVE Patient with minimal verbalizations, lethargy with head nodding at start of the session. Patient was able to participate in the session. THERAPY DIAGNOSIS Dysphagia, oropharyngeal phase TREATMENT INTERVENTIONS Dysphagia Therapy (52390) Skilled Treatment Time (minutes): 15 TRAINING AND EDUCATION PROVIDED IN Caregiver Education, Dysphagia Management, Results and Recommendations of Session, Swallowing Strategies THERAPEUTIC SKILLS USED Education on role of discipline / importance of activity, Teach-back for confirmation of education provided, Verbal cuing, Repetitive task learning, Demonstration / modeling of taught behavior / exercise, Analyze current use of strategies taught OBJECTIVE Current Status Oral Hygiene: Tongue / cheek coating Dentition: Retains Natural Dentition, Miscellaneous Missing Teeth Current Feeding Method: Small Bore Feeding Tube Current Diet Textures: NPO with alternative means of nutrition/hydration/medication Current Level Of Communication: Verbal (minimal verbalization with head nodding observed) Current Management Of Secretions: Able to self-manage Oral Motor Exam: Within Functional Limits Except Facial Symmetry Impaired: Left Labial Assessment: Generalized weakness, Reduced sensory awareness, Xerostomia Labial ROM Impaired: Left Labial Strength Impaired: Left Lingual Assessment: Generalized weakness, Xerostomia Lingual ROM Impaired: Left Lingual Strength Impaired: Bilateral Jaw Range of Motion: Limited ROM Palatal Elevation: (uanble to assess 2* poor jaw ROM) SPEECH/VOICE/LANGUAGE Vocal Quality: Reduced Vocal Intensity SWALLOW ASSESSMENT Position Of Patient During Assessment: Upright In Bed Feeding Method: SANDING MACHINE OPERATOR OR TENDER Fed Patient Consistencies Presented: Ice Chips Ice Chips Oral Phase: Bolus Holding, Suspected Reduced Oral Control Ice Chips Pharyngeal Phase: Suspect Delayed Swallow, Suspect Reduced Range of Hyoid/Laryngeal Elevation, Cough- Delayed-STRONG cough on 2/2 presentations Pharyngeal Exercises: Effortful Swallow Effortful Swallow Number of Repetitions/Cueing: (Patient participated in only 2/5 reps attempted with maximum verbal cues.) GOALS SWALLOWING: Patient / Caregiver will demonstrate knowledge of taught compensatory strategies and dietary consistency recommendations to optimize functional swallow function without overt clinical signs and symptoms of aspiration or dysphagia Speech Rehab Potential: Fair Progress Toward Goals: Progressing slower than expected Patient /Caregiver Goals: Resume PO Intake ACUTE CARE TREATMENT PLAN ST Frequency: 3 Times Per Week Treatment Interventions: Dysphagia Management Plan of Care Developed with: Patient, Nurse Plan for next visit: Continue per POC SIGNATURE: TYRON So PATIENT NAME: Saray Corbin DATE: August 06, 2024 TIME: 1:23 PM * Raiza Bates APRN.CNP - 08/06/2024 8:07 AM EDT Documentation Query Documentation in the medical record indicates the patient has Severe Protein Calorie Malnutrition. Based on your medical judgment can you please further clarify the diagnosis. Severe Protein Calorie Malnutrition is a current diagnosis & clinically significant for this admission based on the assessment, plan, and treatment This document will become part of the patient's medical record. * Raiza Bates APRN.CNP - 08/06/2024 7:41 AM EDT TRAUMA PROGRESS NOTE SERVICE DATE: 08/06/2024 SERVICE TIME: 7:41 AM Subjective HISTORY (LAST 24 HOURS): Discussed voacal cord dysfunction seen by speech with ENT complex care nurse practitioner Dr Euceda. plan will be out pt follow up . He will request appointment for the pt . continue corpak feeds seen this am mumbled words, moving in bed all 4 extremities , not following simple commands , eyes closed but did open 1 x to my command. will get repeat head CT this am stat to ensure no change. Noted NA slow drift downward 128. Get osmolarities, Nephrology consult for concern SIADH . replete electrolytes . pt noted to have ETOH hx as well . currently on PRN CIWA and thiamine and folic acid scheduled . replete mAg 1.5 this am , blood osmolarity is 269 this am , awaitng additional lab results still . Hold Aldactone today updated by phone 2:[address] key updated and reviewed CT scan Bleed looks stable, no hydrocephalus, No surgery warranted, Rule out seizures and metanbolic causes for AMS -20 min BEM ordered , awaiting nephrology input . Current Facility-Administered Medications Medication Dose Route Frequency ondansetron 4 mg tab(s) (ZOFRAN) 4 mg ORAL q 6 H PRN Or ondansetron (PF) 4 mg injection (ZOFRAN) 4 mg INTRAVENOUS q 6 H PRN levETIRAcetam 1,000 mg injection (KEPPRA) 1,000 mg INTRAVENOUS BID dextrose 40 % 15 g 15 g ORAL PRN Or glucagon 1 mg injection 1 mg INTRAMUSCULAR PRN Or dextrose 10% iv bolus 12.5 g INTRAVENOUS PRN hydrALAZINE 10 mg injection (APRESOLINE) 10 mg INTRAVENOUS q 6 H PRN NaCl 0.9% iv flush bag 20 mL INTRAVENOUS PRN acetaminophen 650 mg tab(s) (TYLENOL) 650 mg ORAL q 6 H PRN oxyCODONE IR 2.5 mg tab(s) (ROXICODONE) 2.5 mg ORAL q 6 H PRN fentaNYL 50 mcg/mL 25 mcg injection (SUBLIMAZE) 25 mcg INTRAVENOUS q 4 H PRN labetalol 5 mg injection (NORMODYNE) 5 mg INTRAVENOUS q 2 H PRN heparin 5,000 Units injection 5,000 Units SUBCUTANEOUS q 12 H diazePAM 5 mg injection (VALIUM) 5 mg INTRAVENOUS q 2 H PRN Or diazePAM 10 mg injection (VALIUM) 10 mg INTRAVENOUS q 2 H PRN insulin lispro injection (rapid acting) (ADMElog) SUBCUTANEOUS q 6 H thiamine 100 mg injection 100 mg INTRAVENOUS TID [START ON 08/08/2024] thiamine 100 mg tab(s) (VITAMIN B1) 100 mg ORAL DAILY pantoprazole 40 mg injection (PROTONIX) 40 mg INTRAVENOUS DAILY (6 AM) rosuvastatin 20 mg tab(s) (CRESTOR) 20 mg NASOGASTRIC DAILY folic acid 1 mg tab(s) 1 mg ORAL/FEEDING TUBE DAILY escitalopram oxalate 30 mg tab(s) (LEXAPRO) 30 mg ORAL DAILY QUEtiapine 50 mg tab(s) (SEROquel) 50 mg ORAL AT BEDTIME sacubitril-valsartan 24-26 mg 1 tablet (ENTRESTO) 1 tablet ORAL BID spironolactone 12.5 mg tab(s) (ALDACTONE) 12.5 mg ORAL DAILY metoprolol tartrate (short acting) 25 mg tab(s) (LOPRESSOR) 25 mg ORAL q 12 H sodium chloride 1 g soluble tab(s) 1 g CORPAK TID Objective PHYSICAL EXAM: Temp (24hrs), Av.4 ??C (97.5 ??F), Min:36.3 ??C (97.3 ??F), Max:36.5 ??C (97.7 ??F) BP 131/77 Pulse 95 Temp (Src) 97.5 (Axillary) Resp 16 Ht 5' 8.898 (1.75m) Wt 132 lb 15 oz (60.3kg) SpO2 92% BMI 19.69 kg/(m^2). O2 Therapy: Room Air Genl: Appears age appropriate. No acute distress. Resting comfortably. Head/Face: Normocephalic. Right temporal abrasion Eyes: PERRLA. EOMI. Sclera not icteric ENMT: External auditory canals clear. Oropharynx is clear. Nasopharynx is clear. Neck: No mid-line masses. No bruits. No LAD. C-spine non-tender. Back: T & L Spine non-tender, no step-offs noted. No flank tenderness. Resp: Lungs clear bilat. No wheezes. No rales. Breathing is non-labored. CVS: RRR. No murmur, rub, gallop. 2+ pulses at RA, DP, PT bilat. GI: Abdomen is soft, non-tender, not distended. Bowel sounds normal. No peritonitis. corpak in place MSK: Extremities without clubbing, cyanosis, edema. Normal ROM x 4. Skin: Warm and dry. No lesions of concern. Not jaundiced. Right elbow abrasion Neuro: A&Ox0-1 mumbling no distinct words , moving sporadically . Psych: AMS changes LABS/IMAGING (pertinent to today's evaulation): Imaging reviewed today: Labs: Recent Labs 08/05/24195808/05/24 0619 08/04/24 1740 08/04/24 0523 WBC -- -- -- 9.17 HB -- -- -- 7.6* HCT -- -- -- 25.4* PLT -- -- -- 416* NA 128* 129* 132* 133* K 4.0 3.8 3.8 3.2* CHLOR 94* 96* 96* 96* CO2 22 22 23 24 CREAT 0.50* 0.50* 0.47* 0.44* P 3.1 3.1 2.5* 2.9 BUN 7* 7* 5* 4* GLUC 121* 124* 123* 122* ALB 3.3* 3.1* 3.4* -- MG 1.7 1.6* 2.0 1.6* CA 8.4* 8.5 8.4* 8.8 Assessment/Plan ACTIVE PROBLEM LIST Severe Protein-Calorie Malnutrition (Hcc) Nicotine use disorder, F17.2 Ards (Adult Respiratory Distress Syndrome) ([facility]) Status Post Tracheostomy (Hcc) Pleural Effusion Transudative Pancreatic Insufficiency (Hcc) Pharyngeal Dysphagia C. Difficile Diarrhea Iron Deficiency Anemia Secondary to Inadequate Dietary Iron Intake Anemia of Chronic Disease Stress-Induced Cardiomyopathy Refeeding Syndrome Dysphagia History of Seizures Stroke (Hcc) Anxiety and Depression Copd (Chronic Obstructive Pulmonary Disease) (Hcc) Luz (Obstructive Sleep Apnea) Htn (Hypertension) Chf (Congestive Heart Failure) (Hcc) Cad (Coronary Artery Disease) Hld (Hyperlipidemia) Subarachnoid Hemorrhage (Hcc) Diabetes Mellitus Type 2, Controlled, Without Complications (Hcc) Anticoagulated On Mechanically Assisted Ventilation (Hcc) Closed Fracture of Multiple Ribs of Right Side Closed Fracture of Body of Sternum Syncope and Collapse Alcohol Abuse Vocal Cord Dysfunction ASSESSMENT/PLAN: Assessment & Plan Subarachnoid hemorrhage (HCC) - Neurosurgery consulted - Non operative management - Neuro checks Q 4 - Repeat CT brain: Stable - MRI 08/01: Small focus of diffusion restriction posterior LEFT aspect of the patsy - BEM DC 08/02 as no seizure activity noted. Moderate diffuse encephalopathy - SBP goal: < 140 - DVT ppx: SQH started today - 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 - Seizure prophylaxis: keppra - PT/OT: pending - MM pain control 08/06 concern for AMS change- stat CT ordered - follow Pharyngeal dysphagia - SANDING MACHINE OPERATOR OR TENDER eval: MBS Monday - Corpak placed 08/03 - Nutrition consult - NPO - Continue home PPI MBSS planned for 08/05- complete- vocal cord dysfunction -ENT consult Dr Euceda discussed via text- will set up out pt follow up Stress-induced cardiomyopathy - Most recent EF ~ 43% - Holding home entresto, aldactone and metop- resumed 08/05 - Repeat echo: LV moderately dilated with Lvef 55%, left atrial cavity severely dilated, mild MVR, and mild pHTN. Compared to prior exam from 05/2022 LV fx improved. 08/06- hold Aldactone due to hyponatremia today until seen by nephrology History of seizures - No home AEDs - Will continue keppra 1g BID - BEM DC 08/02 as no seizure activity noted. Moderate diffuse encephalopathy Anxiety and depression - Holding home lexapro and seroquel - Initially held d/t lack of enteral access, now held d/t prolonged qtc - Repeat EKG ordered for AM 08/05- EKG- complete , no prolonged QT- 379 -May resume Lexapro and seroquel today Diabetes mellitus type 2, controlled, without complications (HCC) - Hold Farxiga - SSI - Accu checks AC/HS Anticoagulated - No current AC use - Only on plavix - Given TXA at OSH - Continue to monitor platelets On mechanically assisted ventilation (HCC) - Intubated for airway protection - Extubated 08/01 - Close respiratory monitoring Stroke (HCC) - 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 Compared to prior exam from 05/2022 LV fx improved. - Tele Syncope and collapse - Unclear etiology of fall - Reports multiple falls and dizziness at home per - Echo: LV moderately dilated with Lvef 55%, left atrial cavity severely dilated, mild MVR, and mild pHTN. Compared to prior exam from 05/2022 LV fx improved. - Carotids: Bilateral carotid artery duplex with approximately 0-29% stenosis bilaterally. - Tele Alcohol abuse -Patient reported to be heavy drinker per family -Started on phenobarb taper 08/02 -CIWA Severe protein-calorie malnutrition (HCC) -Nutrition consult Refeeding syndrome -BID labs -Replete electrolytes as needed -Slow TF advancement, will keep at 20ml/hr today and advance in AM. Goal is 50ml/hr Vocal cord dysfunction ENT consult spoke with Dr Euceda via text He is to send Message to ENT scheduling team for out pt follow up Hyponatremia 08/06- nephrology consult salt tabs for 48 hrs send osmolytes 08/06 hold Aldactone today await nephrology input -start N . saline at 50 cc/ hr VTE Prophylaxis: VTE prophylaxis appropriate SQH, SCDs Diet:NPO- tube feeds PT/OT: Pending Dispo:GOLDY I spent a total of 35 minutes on the date of the service which included preparing to see the patient, [id number] patient care, completing clinical documentation, obtaining and/or reviewing separately obtained history, performing a medically appropriate examination, counseling and educating the pat ient/family/caregiver, ordering medications, tests, or procedures, communicating with other HCPs (not separately reported), independently interpreting results (not separately reported), communicatingresults to the patient/family/caregiver, and care coordination (not separately reported). SIGNATURE: Raiza Bates APRN.CNP PATIENT NAME: Saray Corbin DATE: August 06, 2024 TIME: 7:41 AM * Farmer, Camila, CCC-SANDING MACHINE OPERATOR OR TENDER - 08/05/2024 3:33 PM EDTSumelaina: MBSS Speech Therapy MBSS Evaluation SERVICE DATE: 08/05/2024 SERVICE TIME: 1329 to 1358 ROOM: [address] Patient presents with oropharyngeal dysphagia, likely acute on chronic in the setting of SDH, intubation, history of stroke with L residual weakness. Patient does not appear safe to continue an oral diet at this time. Patient appears to be at an increased risk for developing pulmonary complicationsrelated to the following factors: reduced mobility, increased dependence on caregivers for oral hygiene and feeding, reduced cognitive status, poor oral hygiene, and silent aspiration. Aspiration appears to occur due to mistiming of laryngeal excursion. Delayed cough of aspirated material throughout session. Patient remains inappropriate for exercises due to cognitive deficits and inconsistency at following simple directions. Patient may require long-term means of nutrition if unable to participate in rehabilitation exercises. Compensatory strategies not tested due to cognition. Consult to ENT due to concern of vocal fold impairment. ACDF present C5-C7. Dynamic Imaging Grade of Swallowing Toxicity (DIGEST) (Keeley et al., 2016): Safety Grade Grade 4 Efficiency Grade Grade 1 DIGEST Severity Grade Grade 3 - Severe Evidence of: Oropharyngeal dysphagia An elevated risk for aspiration: Yes Swallow Efficiency: Impaired RECOMMENDATIONS Diet Recommendations NPO with alternative means of nutrition Patient may have ice chips for comfort if cleared by physician under the following conditions: Aggressive oral care prior to ice chips (brush teeth, tongue, roof of mouth, gums, etc) Ice chips given under supervision of RN/PCNA No more than 5-10 ice chips per sitting, no more than 3-5x/day Administer 1 ice chip at a time Swallow Strategy Recommendations Rigid Oral Hygiene Nursing Recommendations Routine Rigid Oral Hygiene, Allowance for ice chips Instrumental Swallow Study Recommendations Recommended Consults ENT Response to Therapy Interventions: Fatigue, Requires additional time/repetition, Confusion interferes with education Rehabilitation Precautions: Aspiration Precautions, Dysphagia, Cognitive Linguistics Deficits DISCHARGE RECOMMENDATIONS Recommended Discharge Disposition: Unable to determine Recommended Discharge Disposition Comments: dysphagia Tx CURRENT HOSPITAL COURSE Patient was transferred from [facility] as a Trauma II following a recent fall at home wherehe hit his right evangelical on a countertop with +LOC. Patient presents wtih a traumatic subarachnoid hemorrhage. 08/01: Brain MRI: Small focus of diffusion restriction posterior LEFT aspect of the patsy as above. Stable intraventricular blood products. 08/01: Chest CT: 1. Acute versus subacute posterior RIGHT 9th-12th rib fxs. 2. Subacute appearing transverse sternum fracture. 3. Trace RIGHT pleural effusion. 4. Mild centrilobular emphysema. 5. Incidental 17 mm groundglass nodule in the RIGHT upper lobe. Recommend follow-up chest CT in 6-12 months. 6. Hepatic steatosis. 08/05: dobhoff tube in place Reason for Speech Therapy Consult: Swallow evaluation 2* patient failing the RN swallow screen and due to recent intubation 07/31-08/01/24. In addition, cognitive evaluation recommended 2* patient suffering a recent fall with +LOC and Dx of a subarachnoid hemorrhage. Relevant Past Medical History: Oropharyngeal Dysphagia, HTN, Alcohol Abuse, Anemia, Stroke, COPD, CHF, Pancreatitis, Adult respiratory distress syndrome, Arthritis, CAD, Depression, Anxiety, GERD, Seizure, s/p Tracheostomy (2022), Stroke with residual lower weakness, LUZ HOME ENVIRONMENT / PRIOR FUNCTIONAL LEVEL Prior Functional Level: Required Assistance Patient Lives With: Spouse Assistance Required With: Transportation, Medication Management, Meals Assistance Available: Unable to determine at this time Prior Swallowing Function/Diet Textures: Regular Consistency, Thin Liquids IDDSI Level 0 SUBJECTIVE Little vocalizations throughout sessions, breathy. THERAPY DIAGNOSIS Dysphagia, oropharyngeal phase TREATMENT INTERVENTIONS Modified Barium Swallow Study (44278), Dysphagia Therapy (91015) Skilled Treatment Time (minutes): 29 TRAINING AND EDUCATION PROVIDED IN Dysphagia Management, Caregiver Education, Swallowing Strategies, Results and Recommendations of Session THERAPEUTIC SKILLS USED Education on role of discipline / importance of activity, Teach-back for confirmation of education provided, Verbal cuing, Modified behavior for increased success, Demonstration / modeling of taught behavior / exercise, Analyze current use of strategies taught OBJECTIVE Current Status Oral Hygiene: Clear, dry oral cavity Dentition: Retains Natural Dentition, Miscellaneous Missing Teeth Current Feeding Method: Small Bore Feeding Tube Current Diet Textures: NPO with alternative means of nutrition/hydration/medication Current Level Of Communication: Verbal Current Management Of Secretions: Able to self-manage Oral Motor Exam: Within Functional Limits Except Facial Symmetry Impaired: Left Labial Assessment: Generalized weakness, Reduced sensory awareness, Xerostomia Labial ROM Impaired: Left Labial Strength Impaired: Left Lingual Assessment: Generalized weakness, Xerostomia Lingual ROM Impaired: Left Lingual Strength Impaired: Bilateral Jaw Range of Motion: Limited ROM Palatal Elevation: (uanble to assess 2* poor jaw ROM) INSTRUMENTAL SWALLOW ASSESSMENT Instrumental Swallow Assessment Type: Modified Barium Swallow Study Modified Barium Swallow Views: Lateral position Barium Consistencies Provided: Thin Liquids IDDSI Level 0, Mildly Thick Liquids IDDSI Level 2 ([place] Thick), Moderately Thick Liquids IDDSI Level 3 ([place] Thick) Oral Phase: As Follows Lip Closure: Escape progressing to mid-chin Tongue Control During Bolus Hold: Cohesive bolus between tongue to palatal seal Bolus Preparation/Mastication: Mastication not assessed Mastication Not Assessed Secondary To: safety concerns Bolus Transport/Lingual Motion: Delayed initiation of tongue motion for A-P movement of the bolus Oral Residue: Trace residue lining oral structures Initiation Of Pharyngeal Swallow: Bolus head at posterior laryngeal surface of epiglottis Pharyngeal Phase: As Follows Soft Palate Elevation: No bolus between soft palate/pharyngeal wall Laryngeal Elevation: Partial superior movement of thyroid cartilage and/or partial approximation ofarytenoids to epiglottic petiole Epiglottic Movement: Partial inversion Laryngeal Vestibular Closure/Height of the Swallow: Incomplete - narrow column of air/contrast in laryngeal vestibule Pharyngeal Stripping Wave: Present, however, diminished Pharyngeal Contraction (A/P View Only): Not tested Pharyngoesophageal Segment Opening: Partial distension/partial duration with partial obstruction offlow of bolus Tongue Base Retraction: Narrow column of contrast or air between tongue base and pharyngeal wall Pharyngeal Residue: Collection of residue within or on the pharyngeal structures Esophageal Clearance In An Upright Position: Esophageal retention Penetration: During the swallow Penetration With: Thin Liquids IDDSI Level 0, Mildly Thick Liquids IDDSI Level 2 ([place] Thick), Moderately Thick Liquids IDDSI Level 3 ([place] Thick) Aspiration: During the swallow Aspiration With: Thin Liquids IDDSI Level 0, Mildly Thick Liquids IDDSI Level 2 ([place] Thick), Moderately Thick Liquids IDDSI Level 3 ([place] Thick) PENETRATION ASPIRATION SCALE Level 8-Material enters the airway, passes below the vocal folds, and no effort is made to eject : Thin Liquids IDDSI Level 0, Mildly Thick Liquids IDDSI Level 2 ([place] Thick), Moderately Thick Liquids IDDSI Level 3 ([place] Thick) GOALS SWALLOWING: Patient / Caregiver will demonstrate knowledge of taught compensatory strategies and dietary consistency recommendations to optimize functional swallow function without overt clinical signs and symptoms of aspiration or dysphagia Speech Rehab Potential: Fair Fair Rehab Potential Due To: Multiple co- morbidities, Learning impairments/ poor understanding of deficits Progress Toward Goals: Not progressing toward goals Patient /Caregiver Goals: Resume PO Intake ACUTE CARE TREATMENT PLAN ST Frequency: 3 Times Per Week Treatment Interventions: Dysphagia Management Plan of Care Developed with: Patient, Nurse, Nurse Practitioner Plan for next visit: Modified Barium Swallow Results, Swallowing Strategies, Respiratory Support / Assessment, Dysphagia Management SIGNATURE: Camila Farmer CCC-SANDING MACHINE OPERATOR OR TENDER PATIENT NAME: Saray Corbin DATE: August 05, 2024 TIME: 3:33 PM * Elaina Talavera PT, DPT - 08/05/2024 1:36 PM EDT PHYSICAL THERAPY MISSED VISIT SERVICE DATE: 08/05/2024 SERVICE TIME: 1336 ROOM: [place] [id number] ( RAD DX RM 12) Patient not seen due to Test / Procedure. Pt off the floor for MBSS. SIGNATURE: Elaina Talavera PT, DPT PATIENT NAME: Saray Corbin DATE: August 05, 2024 TIME: 1:36 PM * Gabriela Hernandez OTR/Gennaro - 08/05/2024 1:27 PM EDT OCCUPATIONAL THERAPY MISSED VISIT SERVICE DATE: 08/05/2024 SERVICE TIME: 1327 ROOM: [facility] ([facility] RAD DX RM 12) Patient not seen due to Test / Procedure. SIGNATURE: Gabriela Hernandez OTR/L PATIENT NAME: Saray Corbin DATE: August 05, 2024 TIME: 1:27 PM * Nicci Suazo LSW - 08/05/2024 11:27 AM EDT CARE MANAGEMENT PROGRESS NOTE SERVICE DATE: 08/05/2024 SERVICE TIME: 11:27 AM LOS: 5 days [place] Choice Given: Yes Level of Care Discussed: Inpatient Rehab Facility CM spoke with Patient at bedside to discuss recommendation for AR; Patient is agreeable and reportsthat [facility] is FOC. Patient will need precert. Discharge packet is on chart, MMT trip is on will call. SIGNATURE: RUTH Jack PATIENT NAME: Saray Corbin DATE: August 05, 2024 TIME: 11:27 AM * Raiza Bates APRN.KENO WRITER - 08/05/2024 9:28 AM EDT TRAUMA PROGRESS NOTE SERVICE DATE: 08/05/2024 SERVICE TIME: 9:41 AM Subjective HISTORY (LAST 24 HOURS): Replete Mag , Na - give salt tabs in corpak for 6 doses for hyponatremia this am . Plan for MBSS this am . Pt awake alert answers appropriately. repeat EKG completed , No prolongation QT so may resume Seroquel and Lexapro today resume entresto, aldactone, and metoprolol through corpak as well . PT eval pending. Patient not medically appropriate for discharge. Current Facility-Administered Medications Medication Dose Route Frequency ondansetron 4 mg tab(s) (ZOFRAN) 4 mg ORAL q 6 H PRN Or ondansetron (PF) 4 mg injection (ZOFRAN) 4 mg INTRAVENOUS q 6 H PRN levETIRAcetam 1,000 mg injection (KEPPRA) 1,000 mg INTRAVENOUS BID dextrose 40 % 15 g 15 g ORAL PRN Or glucagon 1 mg injection 1 mg INTRAMUSCULAR PRN Or dextrose 10% iv bolus 12.5 g INTRAVENOUS PRN hydrALAZINE 10 mg injection (APRESOLINE) 10 mg INTRAVENOUS q 6 H PRN NaCl 0.9% iv flush bag 20 mL INTRAVENOUS PRN acetaminophen 650 mg tab(s) (TYLENOL) 650 mg ORAL q 6 H PRN oxyCODONE IR 2.5 mg tab(s) (ROXICODONE) 2.5 mg ORAL q 6 H PRN fentaNYL 50 mcg/mL 25 mcg injection (SUBLIMAZE) 25 mcg INTRAVENOUS q 4 H PRN labetalol 5 mg injection (NORMODYNE) 5 mg INTRAVENOUS q 2 H PRN heparin 5,000 Units injection 5,000 Units SUBCUTANEOUS q 12 H diazePAM 5 mg injection (VALIUM) 5 mg INTRAVENOUS q 2 H PRN Or diazePAM 10 mg injection (VALIUM) 10 mg INTRAVENOUS q 2 H PRN insulin lispro injection (rapid acting) (ADMElog) SUBCUTANEOUS q 6 H thiamine 100 mg injection 100 mg INTRAVENOUS TID [START ON 08/08/2024] thiamine 100 mg tab(s) (VITAMIN B1) 100 mg ORAL DAILY pantoprazole 40 mg injection (PROTONIX) 40 mg INTRAVENOUS DAILY (6 AM) rosuvastatin 20 mg tab(s) (CRESTOR) 20 mg NASOGASTRIC DAILY folic acid 1 mg tab(s) 1 mg ORAL/FEEDING TUBE DAILY Objective PHYSICAL EXAM: Temp (24hrs), Av.4 ??C (97.6 ??F), Min:36.3 ??C (97.3 ??F), Max:37 ??C (98.6 ??F) BP 144/71 Pulse 82 Temp (Src) 97.5 (Axillary) Resp 18 Ht 5' 8.898 (1.75m) Wt 132 lb 15 oz (60.3kg) SpO2 98% BMI 19.69 kg/(m^2). O2 Therapy: Room Air Genl: Appears age appropriate. No acute distress. Resting comfortably. Head/Face: Normocephalic. Right temporal abrasion Eyes: PERRLA. EOMI. Sclera not icteric ENMT: External auditory canals clear. Oropharynx is clear. Nasopharynx is clear. Neck: No mid-line masses. No bruits. No LAD. C-spine non-tender. Back: T & L Spine non-tender, no step-offs noted. No flank tenderness. Resp: Lungs clear bilat. No wheezes. No rales. Breathing is non-labored. CVS: RRR. No murmur, rub, gallop. 2+ pulses at RA, DP, PT bilat. GI: Abdomen is soft, non-tender, not distended. Bowel sounds normal. No peritonitis. MSK: Extremities without clubbing, cyanosis, edema. Normal ROM x 4. Skin: Warm and dry. No lesions of concern. Not jaundiced. Right elbow abrasion Neuro: A&Ox1-2 today knows person and place. Noted weakness of the right arm and leg 3/5, 4/5 strength on the left, mild right facial droop Psych: Drowsy but arouses to voice LABS/IMAGING (pertinent to today's evaulation): Imaging reviewed today: Labs: Recent Labs 08/05/24 0619 08/04/24 1740 08/04/24 0523 08/03/24 0420 WBC -- -- 9.17 9.22 HB -- -- 7.6* 7.4* HCT -- -- 25.4* 24.8* PLT -- -- 416* 384 NA 129* 132* 133* 134* K 3.8 3.8 3.2* 3.7 CHLOR 96* 96* 96* 100 CO2 22 23 24 22 CREAT 0.50* 0.47* 0.44* 0.50* P 3.1 2.5* 2.9 2.5* BUN 7* 5* 4* 5* GLUC 124* 123* 122* 113* ALB 3.1* 3.4* -- -- MG 1.6* 2.0 1.6* 1.7 CA 8.5 8.4* 8.8 8.3* Assessment/Plan ACTIVE PROBLEM LIST Severe Protein-Calorie Malnutrition (Hcc) Nicotine use disorder, F17.2 Ards (Adult Respiratory Distress Syndrome) ([facility]) Status Post Tracheostomy ([facility]) Pleural Effusion Transudative Pancreatic Insufficiency ([facility]) Pharyngeal Dysphagia C. Difficile Diarrhea Iron Deficiency Anemia Secondary to Inadequate Dietary Iron Intake Anemia of Chronic Disease Stress-Induced Cardiomyopathy Refeeding Syndrome Dysphagia History of Seizures Stroke (Hcc) Anxiety and Depression Copd (Chronic Obstructive Pulmonary Disease) ([facility]) Luz (Obstructive Sleep Apnea) Htn (Hypertension) Chf (Congestive Heart Failure) ([facility]) Cad (Coronary Artery Disease) Hld (Hyperlipidemia) Subarachnoid Hemorrhage (Hcc) Diabetes Mellitus Type 2, Controlled, Without Complications ([facility]) Anticoagulated On Mechanically Assisted Ventilation ([facility]) Closed Fracture of Multiple Ribs of Right Side Closed Fracture of Body of Sternum Syncope and Collapse Alcohol Abuse ASSESSMENT/PLAN: Assessment & Plan Subarachnoid hemorrhage (HCC) - Neurosurgery consulted - Non operative management - Neuro checks Q 4 - Repeat CT brain: Stable - MRI 08/01: Small focus of diffusion restriction posterior LEFT aspect of the patsy - BEM DC 08/02 as no seizure activity noted. Moderate diffuse encephalopathy - SBP goal: < 140 - DVT ppx: SQH started today - 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 - Seizure prophylaxis: keppra - PT/OT: pending - MM pain control Pharyngeal dysphagia - SANDING MACHINE OPERATOR OR TENDER eval: MBS Monday - Corpak placed 08/03 - Nutrition consult - NPO - Continue home PPI MBSS planned for 08/05 Stress-induced cardiomyopathy - Most recent EF ~ 43% - Holding home entresto, aldactone and metop- resumed 08/05 - Repeat echo: LV moderately dilated with Lvef 55%, left atrial cavity severely dilated, mild MVR, and mild pHTN. Compared to prior exam from 05/2022 LV fx improved. History of seizures - No home AEDs - Will continue keppra 1g BID - BEM DC 08/02 as no seizure activity noted. Moderate diffuse encephalopathy Anxiety and depression - Holding home lexapro and seroquel - Initially held d/t lack of enteral access, now held d/t prolonged qtc - Repeat EKG ordered for AM 08/05- EKG- complete , no prolonged QT- 379 -May resume Lexapro and seroquel today Diabetes mellitus type 2, controlled, without complications (HCC) - Hold Farxiga - SSI - Accu checks AC/HS Anticoagulated - No current AC use - Only on plavix - Given TXA at OSH - Continue to monitor platelets On mechanically assisted ventilation (HCC) - Intubated for airway protection - Extubated 08/01 - Close respiratory monitoring Stroke (HCC) - 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 Compared to prior exam from 05/2022 LV fx improved. - Tele Syncope and collapse - Unclear etiology of fall - Reports multiple falls and dizziness at home per - Echo: LV moderately dilated with Lvef 55%, left atrial cavity severely dilated, mild MVR, and mild pHTN. Compared to prior exam from 05/2022 LV fx improved. - Carotids: Bilateral carotid artery duplex with approximately 0-29% stenosis bilaterally. - Tele Alcohol abuse -Patient reported to be heavy drinker per family -Started on phenobarb taper 08/02 -CIWA Severe protein-calorie malnutrition (HCC) -Nutrition consult Refeeding syndrome -BID labs -Replete electrolytes as needed -Slow TF advancement, will keep at 20ml/hr today and advance in AM. Goal is 50ml/hr VTE Prophylaxis: VTE prophylaxis appropriate SQH, SCDs Diet:NPO- tube feeds PT/OT: Pending Dispo:RNF I spent a total of 35 minutes on the date of the service which included preparing to see the patient, [id number] patient care, completing clinical documentation, obtaining and/or reviewing separately obtained history, performing a medically appropriate examination, counseling and educating the pat ient/family/caregiver, ordering medications, tests, or procedures, communicating with other HCPs (not separately reported), independently interpreting results (not separately reported), communicatingresults to the patient/family/caregiver, and care coordination (not separately reported). SIGNATURE: Raiza Bates APRN.CNP PATIENT NAME: Saray Corbin DATE: August 05, 2024 TIME: 9:28 AM * Black Carter APRN.CNP - 08/04/2024 2:34 PM EDT TRAUMA PROGRESS NOTE SERVICE DATE: 08/04/2024 SERVICE TIME: 1130 Subjective HISTORY (LAST 24 HOURS): No acute events overnight. Patient seen this morning resting comfortably in bed. Morning labs notable for Hypokalemia and hypomagnesemia with the initiation of TF yesterday afternoon. Potassium and mag replacement ordered, BID RFPs, and TF rate to remain at 20ml for now, will advance slowly based off labs. On exam patient remains drowsy but awakens to voice, mild dysarthria, right sided facial droop, right sided ataxia, and right sided weakness. MBS to be completed tomorrow. PT/OT recommending AR at time of discharge. Not medically ready for discharge at this time. Current Facility-Administered Medications Medication Dose Route Frequency ondansetron 4 mg tab(s) (ZOFRAN) 4 mg ORAL q 6 H PRN Or ondansetron (PF) 4 mg injection (ZOFRAN) 4 mg INTRAVENOUS q 6 H PRN levETIRAcetam 1,000 mg injection (KEPPRA) 1,000 mg INTRAVENOUS BID dextrose 40 % 15 g 15 g ORAL PRN Or glucagon 1 mg injection 1 mg INTRAMUSCULAR PRN Or dextrose 10% iv bolus 12.5 g INTRAVENOUS PRN sodium chloride 0.9 % (flush) 2-10 mL (BD POSIFLUSH) 2-10 mL INTRAVENOUS DIRECTED PRN And perflutren lipid microspheres 1.1 mg/mL 1.3 mL injection (DEFINITY) 1.3 mL INTRAVENOUS DIRECTED PRN hydrALAZINE 10 mg injection (APRESOLINE) 10 mg INTRAVENOUS q 6 H PRN NaCl 0.9% iv flush bag 20 mL INTRAVENOUS PRN acetaminophen 650 mg tab(s) (TYLENOL) 650 mg ORAL q 6 H PRN oxyCODONE IR 2.5 mg tab(s) (ROXICODONE) 2.5 mg ORAL q 6 H PRN fentaNYL 50 mcg/mL 25 mcg injection (SUBLIMAZE) 25 mcg INTRAVENOUS q 4 H PRN labetalol 5 mg injection (NORMODYNE) 5 mg INTRAVENOUS q 2 H PRN heparin 5,000 Units injection 5,000 Units SUBCUTANEOUS q 12 H diazePAM 5 mg injection (VALIUM) 5 mg INTRAVENOUS q 2 H PRN Or diazePAM 10 mg injection (VALIUM) 10 mg INTRAVENOUS q 2 H PRN insulin lispro injection (rapid acting) (ADMElog) SUBCUTANEOUS q 6 H thiamine 100 mg injection 100 mg INTRAVENOUS TID [START ON 08/08/2024] thiamine 100 mg tab(s) (VITAMIN B1) 100 mg ORAL DAILY pantoprazole 40 mg injection (PROTONIX) 40 mg INTRAVENOUS DAILY (6 AM) rosuvastatin 20 mg tab(s) (CRESTOR) 20 mg NASOGASTRIC DAILY [Order Held by LIP] escitalopram oxalate 30 mg tab(s) (LEXAPRO) 30 mg ORAL/FEEDING TUBE DAILY Objective PHYSICAL EXAM: Temp (24hrs), Av.6 ??C (97.8 ??F), Min:36.3 ??C (97.3 ??F), Max:36.8 ??C (98.2 ??F) BP 130/74 Pulse 88 Temp (Src) 97.3 (Axillary) Resp 16 Ht 5' 8.898 (1.75m) Wt 132 lb 15 oz (60.3kg) SpO2 99% BMI 19.69 kg/(m^2). O2 Therapy: Room Air, Liters (Numeric Only): 2.00 Genl: Appears age appropriate. No acute distress. Resting comfortably. Head/Face: Normocephalic. Right temporal abrasion Eyes: PERRLA. EOMI. Sclera not icteric ENMT: External auditory canals clear. Oropharynx is clear. Nasopharynx is clear. Neck: No mid-line masses. No bruits. No LAD. C-spine non-tender. Back: T & L Spine non-tender, no step-offs noted. No flank tenderness. Resp: Lungs clear bilat. No wheezes. No rales. Breathing is non-labored. CVS: RRR. No murmur, rub, gallop. 2+ pulses at RA, DP, PT bilat. GI: Abdomen is soft, non-tender, not distended. Bowel sounds normal. No peritonitis. Corpak right nare MSK: Extremities without clubbing, cyanosis, edema. Normal ROM x 4. Skin: Warm and dry. No lesions of concern. Not jaundiced. Right elbow abrasion Neuro: A&Ox1-2 today knows person and place. Noted weakness of the right arm and leg 3/5, 4/5 strength on the left, mild right facial droop Psych: Drowsy but arouses to voice LABS/IMAGING (pertinent to today's evaulation): Imaging reviewed today: Labs: Recent Labs 08/04/24 0523 08/03/24 0420 08/02/24 0500 WBC 9.17 9.22 10.49 HB 7.6* 7.4* 8.5* HCT 25.4* 24.8* 28.7* PLT 416* 384 374 NA 133* 134* 133* K 3.2* 3.7 4.3 CHLOR 96* 100 97* CO2 24 22 17* CREAT 0.44* 0.50* 0.49* P 2.9 2.5* -- BUN 4* 5* 3* GLUC 122* 113* 102* MG 1.6* 1.7 1.9 CA 8.8 8.3* 8.0* Assessment/Plan ACTIVE PROBLEM LIST Severe Protein-Calorie Malnutrition (Hcc) Nicotine use disorder, F17.2 Ards (Adult Respiratory Distress Syndrome) ([facility]) Status Post Tracheostomy (Hcc) Pleural Effusion Transudative Pancreatic Insufficiency (Hcc) Pharyngeal Dysphagia C. Difficile Diarrhea Iron Deficiency Anemia Secondary to Inadequate Dietary Iron Intake Anemia of Chronic Disease Stress-Induced Cardiomyopathy Dysphagia History of Seizures Stroke (Hcc) Anxiety and Depression Copd (Chronic Obstructive Pulmonary Disease) (Hcc) Luz (Obstructive Sleep Apnea) Htn (Hypertension) Chf (Congestive Heart Failure) (Hcc) Cad (Coronary Artery Disease) Hld (Hyperlipidemia) Subarachnoid Hemorrhage (Hcc) Diabetes Mellitus Type 2, Controlled, Without Complications (Hcc) Anticoagulated On Mechanically Assisted Ventilation (Hcc) Closed Fracture of Multiple Ribs of Right Side Closed Fracture of Body of Sternum Syncope and Collapse Alcohol Abuse ASSESSMENT/PLAN: Assessment & Plan Subarachnoid hemorrhage (HCC) - Neurosurgery consulted - Non operative management - Neuro checks Q 4 - Repeat CT brain: Stable - MRI 08/01: Small focus of diffusion restriction posterior LEFT aspect of the patsy - BEM DC 08/02 as no seizure activity noted. Moderate diffuse encephalopathy - SBP goal: < 140 - DVT ppx: SQH started today - 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 - Seizure prophylaxis: keppra - PT/OT: pending - MM pain control Pharyngeal dysphagia - SANDING MACHINE OPERATOR OR TENDER eval: MBS Monday - Corpak placed 08/03 - Nutrition consult - NPO - Continue home PPI Stress-induced cardiomyopathy - Most recent EF ~ 43% - Holding home entresto, aldactone and metop - Repeat echo: LV moderately dilated with Lvef 55%, left atrial cavity severely dilated, mild MVR, and mild pHTN. Compared to prior exam from 05/2022 LV fx improved. History of seizures - No home AEDs - Will continue keppra 1g BID - BEM DC 08/02 as no seizure activity noted. Moderate diffuse encephalopathy Anxiety and depression - Holding home lexapro and seroquel - Initially held d/t lack of enteral access, now held d/t prolonged qtc - Repeat EKG ordered for AM Diabetes mellitus type 2, controlled, without complications ([facility]) - Hold Farxiga - SSI - Accu checks AC/HS Anticoagulated - No current AC use - Only on plavix - Given TXA at OSH - Continue to monitor platelets On mechanically assisted ventilation (HCC) - Intubated for airway protection - Extubated 08/01 - Close respiratory monitoring Stroke (HCC) - 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 Compared to prior exam from 05/2022 LV fx improved. - Tele Syncope and collapse - Unclear etiology of fall - Reports multiple falls and dizziness at home per - Echo: LV moderately dilated with Lvef 55%, left atrial cavity severely dilated, mild MVR, and mild pHTN. Compared to prior exam from 05/2022 LV fx improved. - Carotids: Bilateral carotid artery duplex with approximately 0-29% stenosis bilaterally. - Tele Alcohol abuse -Patient reported to be heavy drinker per family -Started on phenobarb taper 08/02 -CIWA Severe protein-calorie malnutrition (HCC) -Nutrition consult Refeeding syndrome -BID labs -Replete electrolytes as needed -Slow TF advancement, will keep at 20ml/hr today and advance in AM. Goal is 50ml/hr VTE Prophylaxis: VTE prophylaxis appropriate SQH, SCDs Diet:TF PT/OT: [place] Dispo:GOLDY I spent a total of 35 minutes on the date of the service which included preparing to see the patient, [id number] patient care, completing clinical documentation, obtaining and/or reviewing separately obtained history, performing a medically appropriate examination, counseling and educating the pat ient/family/caregiver, ordering medications, tests, or procedures, communicating with other HCPs (not separately reported), independently interpreting results (not separately reported), communicatingresults to the patient/family/caregiver, and care coordination (not separately reported). SIGNATURE: Black Carter APRN.CNP PATIENT NAME: Saray Corbin DATE: August 04, 2024 TIME: 2:34 PM * Elaina Talavera, PT, DPT - 08/03/2024 2:39 PM EDT Physical Therapy Evaluation Summary SERVICE DATE: 08/03/2024 SERVICE TIME: 1400 to 1427 ROOM: [place] [id number] PT 6 Clicks Score: 10 DISCHARGE RECOMMENDATIONS Acute Rehab Recommended Discharge Disposition Due to: Balance deficits, Functional status decline, Requires multiple therapy disciplines, Patient requires active, intensive rehabilitation by multiple therapy disciplines. Anticipate the patient will tolerate 3 hours of therapy per day. Anticipated Discharge Needs: Undetermined ASSESSMENT Response to Therapy Interventions: Cognitive Deficits, Limited Participation, Low Activity Tolerance, Multiple Ongoing Medical Issues Pt presented with decreased functional mobility, endurance and strength requiring caregiver assistance. AO x self during session. Distracted at times, requiring verbal cues for staying on task. Pt completed LE exercises but declined EOB sitting despite max encouragement. Appears to be functioning below baseline and would benefit from additional skilled PT while in house and at DC to maximize functional indep and strength. PRECAUTIONS Fall Risk, Lines/Tubes/Drains, Impulsive with Activity, Seizure, Other: See Comments, Bed/Chair Alarm NPO CURRENT HOSPITAL COURSE 63 year old male with a who initially presented s/p mechanical fall with head strike on granite counter top with + LOC. Traumatic right SAH. Closed fracture of multiple ribs of right side - Subacute 9-12th posterior rib fractures. Relevant Past Medical History: Alcohol abuse last drink 04/23/2022, Tobacco abuse, anxiety disorder,Depressive disorder, Seizure disorder, Current pancreatitis with complicating pseudocyst, hx strokewith residual LUE/LLE weakness HOME LIVING Patient Lives With: Spouse Assistance Available: 24-Hour Entry To Home: No Stairs Number Of Stairs To Bed/Bath: 0 (pt stays on first floor) Tub/Shower Type: Tub shower, shower chair, grab bars Laundry: spouse completes- 1st floor Equipment Owned: Walker- Wheeled, Wheelchair- Manual, Cane, Program Review Director PRIOR FUNCTIONAL LEVEL Within Functional Limits, Required Assistance Assistance Required With: Shopping, Laundry, Cleaning, Transportation pt is a questionable historian due to confusion; pt reporting IND with ADLs, spouse completes IADLs, -driving, ambulates with a rollator, hx of falls per chart SUBJECTIVE Pt agreeable to PT session THERAPY DIAGNOSIS Reduced mobility-other, Muscle Weakness (generalized) TREATMENT INTERVENTIONS Evaluation, Therapeutic Activity (51327), Therapeutic Exercise (75158) Timed Code Treatment (minutes): 12 Skilled Treatment Time (minutes): 27 TRAINING & EDUCATION PROVIDED Anatomy and Impact on Deficits, Bed Mobility, Benefits of In-Hospital Mobility, Discharge Planning,Energy Conservation, Exercise Program, Positioning, Precautions/Restrictions, Role of Physical Therapy THERAPEUTIC SKILLS USED Activity Dosing, Assessment of Tolerance Including Vitals Response to Activity, Bed in Chair Position, Cues for Sequencing/Proper Technique for Activity, Cuing Tactile, Cuing Verbal, Management of Critical Lines, Tubes and/or Drains, Physical Assist FUNCTIONAL STATUS Bed Mobility Rolling: Moderate Assistance Exercise Ankle Pumps (number of reps): 10 Heel Slides (number of reps): 10 SAQ (number of reps): 10 Exercise: encouraged LE exercises, bed into chair position Transfers Bed to Chair Gait Stairs GOALS Patient will demonstrate progress to optimize functional mobility, maximize activity tolerance and endurance to maximize function upon discharge. Rehab Potential: Good Good Rehab Potential Due To: Current objective clinical presentation, Good overall health status, Good support system/ coping skills, Good motivation ACUTE CARE TREATMENT PLAN PT Frequency: 4 Times Per Week (1) Treatment Interventions: Education, Energy Conservation Training, Strengthening, Functional Mobility Training, Balance Training, Neuromuscular Re-education, Pain Management Plan for Next Visit: Bed Mobility, Chair Transfer Training, Fall Prevention, Sit to Stand Transfers, Sitting Balance, Standing Balance, Standing Tolerance SIGNATURE: Elaina Talavera PT, DPT PATIENT NAME: Saray Corbin DATE: August 03, 2024 TIME: 2:39 PM * Black Carter APRN.KENO WRITER - 08/03/2024 1:12 PM EDT TRAUMA PROGRESS NOTE SERVICE DATE: 08/03/2024 SERVICE TIME: 1115 Subjective HISTORY (LAST 24 HOURS): Transferred to [facility] from ICU yesterday evening. Overnight patient with hypoglycemia down to 26 requiring D10 infusion. Evaluated by SANDING MACHINE OPERATOR OR TENDER yesterday who recommended MBS and enteral access for Mr. Corbin. Discussed Corpak placement with pts , christine, who was agreeable for evan cement. Nutrition consulted for TF recs. Will place corpak later today. PT eval pending. Patient not medically appropriate for discharge. Current Facility-Administered Medications Medication Dose Route Frequency ondansetron 4 mg tab(s) (ZOFRAN) 4 mg ORAL q 6 H PRN Or ondansetron (PF) 4 mg injection (ZOFRAN) 4 mg INTRAVENOUS q 6 H PRN levETIRAcetam 1,000 mg injection (KEPPRA) 1,000 mg INTRAVENOUS BID dextrose 40 % 15 g 15 g ORAL PRN Or glucagon 1 mg injection 1 mg INTRAMUSCULAR PRN Or dextrose 10% iv bolus 12.5 g INTRAVENOUS PRN sodium chloride 0.9 % (flush) 2-10 mL (BD POSIFLUSH) 2-10 mL INTRAVENOUS DIRECTED PRN And perflutren lipid microspheres 1.1 mg/mL 1.3 mL injection (DEFINITY) 1.3 mL INTRAVENOUS DIRECTED PRN hydrALAZINE 10 mg injection (APRESOLINE) 10 mg INTRAVENOUS q 6 H PRN NaCl 0.9% iv flush bag 20 mL INTRAVENOUS PRN acetaminophen 650 mg tab(s) (TYLENOL) 650 mg ORAL q 6 H PRN oxyCODONE IR 2.5 mg tab(s) (ROXICODONE) 2.5 mg ORAL q 6 H PRN fentaNYL 50 mcg/mL 25 mcg injection (SUBLIMAZE) 25 mcg INTRAVENOUS q 4 H PRN [Order Held by LIP] tamsulosin 0.4 mg cap(s) (FLOMAX) 0.4 mg ORAL DAILY [Order Held by LIP] QUEtiapine 25 mg tab(s) (SEROquel) 25 mg ORAL AT BEDTIME [Order Held by LIP] escitalopram oxalate 30 mg tab(s) (LEXAPRO) 30 mg ORAL DAILY [Order Held by LIP] rosuvastatin 20 mg tab(s) (CRESTOR) 20 mg ORAL DAILY labetalol 5 mg injection (NORMODYNE) 5 mg INTRAVENOUS q 2 H PRN heparin 5,000 Units injection 5,000 Units SUBCUTANEOUS q 12 H diazePAM 5 mg injection (VALIUM) 5 mg INTRAVENOUS q 2 H PRN Or diazePAM 10 mg injection (VALIUM) 10 mg INTRAVENOUS q 2 H PRN insulin lispro injection (rapid acting) (ADMElog) SUBCUTANEOUS q 6 H thiamine 100 mg injection 100 mg INTRAVENOUS TID [START ON 08/08/2024] thiamine 100 mg tab(s) (VITAMIN B1) 100 mg ORAL DAILY pantoprazole 40 mg injection (PROTONIX) 40 mg INTRAVENOUS DAILY (6 AM) NaCl 0.9% iv infusion 50 mL/hr INTRAVENOUS CONTINUOUS magnesium sulfate iv piggyback in sterile water 2 g 50 mL 2 g INTRAVENOUS ONCE Objective PHYSICAL EXAM: Temp (24hrs), Av.6 ??C (97.8 ??F), Min:36.3 ??C (97.3 ??F), Max:37.1 ??C (98.8 ??F) BP 155/80 Pulse 94 Temp (Src) 97.5 (Oral) Resp 18 Ht 5' 8.898 (1.75m) Wt 132 lb 15 oz (60.3kg) SpO2 94% BMI 19.69 kg/(m^2). O2 Therapy: Nasal Cannula, Liters (Numeric Only): 2 Genl: Appears age appropriate. No acute distress. Resting comfortably. Head/Face: Normocephalic. Right temporal abrasion Eyes: PERRLA. EOMI. Sclera not icteric ENMT: External auditory canals clear. Oropharynx is clear. Nasopharynx is clear. Neck: No mid-line masses. No bruits. No LAD. C-spine non-tender. Back: T & L Spine non-tender, no step-offs noted. No flank tenderness. Resp: Lungs clear bilat. No wheezes. No rales. Breathing is non-labored. CVS: RRR. No murmur, rub, gallop. 2+ pulses at RA, DP, PT bilat. GI: Abdomen is soft, non-tender, not distended. Bowel sounds normal. No peritonitis. MSK: Extremities without clubbing, cyanosis, edema. Normal ROM x 4. Skin: Warm and dry. No lesions of concern. Not jaundiced. Right elbow abrasion Neuro: A&Ox1-2 today [address] person [address] place. Noted weakness of the right arm and leg 3/5, 4/5 strength on the left, mild right facial droop Psych: Drowsy but arouses to voice LABS/IMAGING (pertinent to today's evaulation): Imaging reviewed today: Labs: Recent Labs 08/03/24 0420 08/02/24 0500 08/01/24 0442 WBC 9.22 10.49 9.39 HB 7.4* 8.5* 7.2* HCT 24.8* 28.7* 23.8* PLT 384 374 320 NA 134* 133* 135* K 3.7 4.3 3.2* CHLOR 100 97* 99 CO2 22 17* 22 CREAT 0.50* 0.49* 0.53* P 2.5* -- 2.9 BUN 5* 3* 3* GLUC 113* 102* 91 MG 1.7 1.9 1.0* CA 8.3* 8.0* 8.0* Assessment/Plan ACTIVE PROBLEM LIST Severe Protein-Calorie Malnutrition (Hcc) Nicotine use disorder, F17.2 Ards (Adult Respiratory Distress Syndrome) ([facility]) Status Post Tracheostomy (Hcc) Pleural Effusion Transudative Pancreatic Insufficiency (Hcc) Pharyngeal Dysphagia C. Difficile Diarrhea Iron Deficiency Anemia Secondary to Inadequate Dietary Iron Intake Anemia of Chronic Disease Stress-Induced Cardiomyopathy Dysphagia History of Seizures Stroke (Hcc) Anxiety and Depression Copd (Chronic Obstructive Pulmonary Disease) (Hcc) Luz (Obstructive Sleep Apnea) Htn (Hypertension) Chf (Congestive Heart Failure) (Hcc) Cad (Coronary Artery Disease) Hld (Hyperlipidemia) Subarachnoid Hemorrhage (Hcc) Diabetes Mellitus Type 2, Controlled, Without Complications (Hcc) Anticoagulated On Mechanically Assisted Ventilation (Hcc) Closed Fracture of Multiple Ribs of Right Side Closed Fracture of Body of Sternum Syncope and Collapse Alcohol Abuse ASSESSMENT/PLAN: Assessment & Plan Subarachnoid hemorrhage (HCC) - Neurosurgery consulted - Non operative management - Neuro checks Q 4 - Repeat CT brain: Stable - MRI 08/01: Small focus of diffusion restriction posterior LEFT aspect of the patsy - BEM DC 08/02 as no seizure activity noted. Moderate diffuse encephalopathy - SBP goal: < 140 - DVT ppx: SQH started today - 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 - Seizure prophylaxis: keppra - PT/OT: pending - MM pain control Pharyngeal dysphagia - SANDING MACHINE OPERATOR OR TENDER eval: MBS Monday - Will place corpak today - Nutrition consult - NPO currently - Continue home PPI Stress-induced cardiomyopathy - Most recent EF ~ 43% - Holding home entresto, aldactone and metop - Repeat echo: LV moderately dilated with Lvef 55%, left atrial cavity severely dilated, mild MVR, and mild pHTN. Compared to prior exam from 05/2022 LV fx improved. History of seizures - No home AEDs - Will continue keppra 1g BID - BEM DC 08/02 as no seizure activity noted. Moderate diffuse encephalopathy Anxiety and depression - Holding home lexapro and seroquel Diabetes mellitus type 2, controlled, without complications ([facility]) - Hold Farxiga - SSI - Accu checks AC/HS Anticoagulated - No current AC use - Only on plavix - Given TXA at OSH - Continue to monitor platelets On mechanically assisted ventilation (HCC) - Intubated for airway protection - Extubated 08/01 - Close respiratory monitoring Stroke ([facility]) - 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 Compared to prior exam from 05/2022 LV fx improved. - Tele Syncope and collapse - Unclear etiology of fall - Reports multiple falls and dizziness at home per - Echo: LV moderately dilated with Lvef 55%, left atrial cavity severely dilated, mild MVR, and mild pHTN. Compared to prior exam from 05/2022 LV fx improved. - Carotids: Bilateral carotid artery duplex with approximately 0-29% stenosis bilaterally. - Tele Alcohol abuse -Patient reported to be heavy drinker per family -Started on phenobarb taper 08/02 -[facility] VTE Prophylaxis: VTE prophylaxis appropriate [facility], SCDs Diet:NPO PT/OT: Pending Dispo:GOLDY I spent a total of 35 minutes on the date of the service which included preparing to see the patient, [id number] patient care, completing clinical documentation, obtaining and/or reviewing separately obtained history, performing a medically appropriate examination, counseling and educating the pat ient/family/caregiver, ordering medications, tests, or procedures, communicating with other HCPs (not separately reported), independently interpreting results (not separately reported), communicatingresults to the patient/family/caregiver, and care coordination (not separately reported). SIGNATURE: Black Carter APRN.KENO WRITER PATIENT NAME: Saray Corbin DATE: August 03, 2024 TIME: 1:12 PM * Lor Parnell, OT/L - 08/03/2024 9:55 AM EDT Occupational Therapy Evaluation Summary SERVICE DATE: 08/03/2024 SERVICE TIME: 850 to 928 ROOM: [place] [address] OT 6 Clicks Score: 11 DISCHARGE RECOMMENDATIONS Acute Rehab Recommended Discharge Disposition Comments: [place] versus SNF Recommended Discharge Disposition Due to: Functional deficits requiring ongoing therapy service prior to discharge home., Patient requires active, intensive rehabilitation by multiple therapy disciplines. Anticipate the patient will tolerate 3 hours of therapy per day., ADL impairment, Cognitive deficits new/worsened, Coordination deficits, Dominant side deficits, Functional status decline, Motorplanning deficits, Requires multiple therapy disciplines, Weakness less than 3/5 in upper extremity Anticipated Discharge Needs: Undetermined ASSESSMENT Response to Therapy Interventions: Limited Participation, Low Activity Tolerance Pt presenting with deficits in strength, ROM, sitting balance, activity tolerance, and cognition. Pt requiring skilled OT to address deficits and increase independence. PRECAUTIONS Fall Risk, Lines/Tubes/Drains, Impulsive with Activity, Seizure, Other: See Comments (rib precautions) NPO CURRENT HOSPITAL COURSE 63 year old male with a who initially presented s/p mechanical fall with head strike on granite counter top with + LOC. Traumatic right SAH. Closed fracture of multiple ribs of right side - Subacute 9-12th posterior rib fractures. Relevant Past Medical History: Alcohol abuse last drink 04/23/2022, Tobacco abuse, anxiety disorder,Depressive disorder, Seizure disorder, Current pancreatitis with complicating pseudocyst, hx strokewith residual LUE/LLE weakness HOME LIVING Patient Lives With: Spouse Assistance Available: 24-Hour Entry To Home: No Stairs Number Of Stairs To Bed/Bath: 0 (pt stays on first floor) Tub/Shower Type: Tub shower, shower chair, grab bars Laundry: spouse completes- 1st floor Equipment Owned: Walker- Wheeled, Wheelchair- Manual, Cane, Program Review Director PRIOR FUNCTIONAL LEVEL Within Functional Limits, Required Assistance Assistance Required With: Shopping, Laundry, Cleaning, Transportation pt is a questionable historian due to confusion; pt reporting IND with ADLs, spouse completes IADLs, -driving, ambulates with a rollator, hx of falls per chart Baseline Cognition: Oriented to situation, Oriented to time, Oriented to place, Oriented to self SUBJECTIVE pt verbalizing yes and shaking head no to responses, minimal words spoken throughout, pt benefits from yes/no questions, pt able to point to written words to assess orientation COGNITION Communication Deficits: Expressive Deficits Orientation Deficits: Confused, Not oriented to Situation, Other: See Comment, Not oriented to Time(pt presents with word finding difficulities, pt able to point to correct place/time (hospital, July) with a list of 3 words written out, unable to state year, states name and birthday) Responsiveness: Awake, Alert, Lethargic Follows Commands: 1-step Commands, With Increased Time, With Repetition Memory Deficits: Short Term, Recall of Recent Events Executive Function Deficits: Problem Solving, Motor Planning, Safety Awareness, Insight to Deficits, Judgement, Sequencing, Categorization, Time management Confusion Assessment Method (CAM - ICU Score): (!) Positive (08/02/24) THERAPY DIAGNOSIS Decreased activities of daily living (ADL), Reduced mobility-other, Muscle Weakness (generalized), Unsteadiness on feet, General symptoms and signs-other, Difficulty walking-musculoskeletal, Signs and Symptoms Involving Cognitive Functions and Awareness, Lack of coordination-other TREATMENT INTERVENTIONS Evaluation, Self Custodial Management (54247) Timed Code Treatment (minutes): 23 Skilled Treatment Time (minutes): 38 TRAINING & EDUCATION PROVIDED Activity Adaptation/Compensatory Strategies, Assistive Device Use, Bed Mobility, Benefits of In-Hospital Mobility, Cognitive Skills, Cognitive Stimulation Activities, Command Following, Delirium Reduction Techniques, Disease Specific Education, Emotional Regulation, Energy Conservation, Fine Motor Coordination, Functional Mobility Involving ADLs, Grooming Tasks, Health Literacy, Health Managementof Chronic Conditions, Home Set-up/Modifications, IADLs/Home Management, Identification of Systems of Support, Insight into Deficits, Life Roles/Routines/Habits, Meaningful Hobby/Leisure Participation, Orientation, Patient Exercise/Therapy Program Support Needs, Precautions/Restrictions, Role of Occupational Therapy, Safety/Judgment, Sitting Balance to Improve Benson with ADLs/Self-Care, Upper Extremity Dressing THERAPEUTIC SKILLS USED Activity Dosing, Assessment of Tolerance Including Vitals Response to Activity, Cues for Sequencing/Proper Technique for Activity, Cuing Tactile, Cuing Verbal, Cuing Visual, Movement Facilitation, Mirroring, Physical Assist, Repetitive Task Learning, Task Analysis Learning, Teach-Back for Education, Therapeutic Use of Self FUNCTIONAL STATUS Activities of Daily Living Assist Level Additional Information Feeding Maximal Assistance Grooming Moderate Assistance pt washed his face, bed level Bathing Upper Body Maximal Assistance Bathing Lower Body Maximal Assistance Dressing Upper Body Maximal Assistance assist to fully doff gown, assist to thread into [place] UE's with max cues, pt fatigued with limited participation Dressing Lower Body Maximal Assistance Toileting Total Assistance pt requiring assist to clean up in bed, rolling R and L Mobility Assist Level Additional Information Bed Mobility Rolling: Minimal Assistance (VC's and assist to use bedrail) Pt sat EOB for ~3 minutes, pt unable to tolerate further d/t feeling dizzy, vitals assessed upon supine and stable, RN aware. Pt declining further attempts due to fatigue. Supine To Sit: Maximal Assistance (assist to logroll and bring B LE's off bed, assist to elevate trunk due to confusion and weakness) Sit To Supine: Maximal Assistance Sit to Stand Additional Information (unable to attempt, pt dizzy sitting EOB) Stand to Sit Bed to Chair Toilet/Commode Shower Functional Mobility GOALS Patient will demonstrate progress to optimize self-care activities, cognitive and/or coping to maximize function upon discharge. Rehab Potential: Good ACUTE CARE TREATMENT PLAN OT Frequency: 3 Times Per Week Treatment Interventions: Education, Self Care/Home Management, Energy Conservation Training, Joint Mobility, Strengthening, Functional Mobility Training, Balance Training, Neuromuscular Re-education Plan for Next Visit: Chair/Commode Transfer Training, Bed Mobility, Dressing Training, Energy Conservation, Fall Prevention, Grooming Training, Health Management of Chronic Conditions, IADLs/Home Management, Sitting Tolerance, Sitting Balance, Standing Tolerance, Standing Balance SIGNATURE: KIERRA Sheehan PATIENT NAME: Saray Corbin DATE: August 03, 2024 TIME: 9:55 AM * Beth Gruber LSW - 08/02/2024 2:00 PM EDT CARE MANAGEMENT: ASSESSMENT AND DISCHARGE PLAN SERVICE DATE: August 02, 2024 SERVICE TIME: 1:45 pm PCP: Oswaldo Turpin DO Primary Contact: Extended Emergency Contact Information Primary Emergency Contact: Christine Corbin [address]: [address] [place] [address] [address] [place] [address] Relation: Spouse Admission Status: Inpatient Insurance Provider: [facility] MEDICARE ADVANTAGE HMO Discharge Planning requested by: Per Department Practice Potential Transition Plans To Be Determined Advance Directives Current Advance Directive: None Service Learning Coordinator Attempted to Assist with AD Completion: Yes Action: Education Provided Current Living Arrangements and Support Lives with: Spouse/significant other Type of Residence: Private Residence (House) Does the patient have to climb stairs at home?: Yes, stairs outside the home Support: Children, Spouse/significant other How do you manage to accomplish the following: Independent: Bathe/Shower, Dress, Going to the bathroom Needs Assistance: Ambulation Dependent: Meals/Meal Prep, Medication Management, Transportation to appointments/community Current Services/Equipment Current Post-Acute Service(s): DME Current DME Type: Walker, Shower seat, Elevated toilet seat Discharge Planning Patient Goal(s): Better mobility Kellogg of Choice Explained: Kellogg of Choice Given: Yes Level of Care Discussed: Home Care Are you interested in bedside delivery of your medications? No Discharge Planning Participant(s): Spouse/significant other Patient/Family Comments: want home PT and wants pt to stop drinking Caregiver Assessment: Caregiver is ready, willing and able to meet the patient's needs as recommended by the inter-professional team: Yes Name of Caregiver: spouse Transport at Discharge: Transportation Arrangements: Car (spouse) Needs Prior to Discharge: Needs Prior to Discharge: OT/PT Evaluation, To Be Determined Post-Acute Discharge Plan: placed call to patient's spouse, Christine Corbin to complete assessment. Pt remains altered. Pt lives with spouse in their 2-story home in [place], [place]. B/B on first floor. Spouse helps with medication management transportation and cooking/groceries. Pt has a psychiatrist at [facility]. Spouse reportedthat pt is depressed with low motivation to complete ADL's and IADL's. She would like home PT for his weakness and falls. He had [facility] recently, but she does not know the name of agency. Pt was a trauma transfer to [place] ICU from [facility]. Pt had a fall and headinjury, intubated then extuabted 08/01 to [place]. Spouse reports that pt drinks beer daily. Started on phenobarb taper 08/02. Plan for [facility]. SIGNATURE: RUTH Maurice PATIENT NAME: Saray Corbin DATE: August 02, 2024 TIME: 2:00 PM * Beth Gruber LSW - 08/02/2024 1:01 PM EDT SOCIAL WORK PROGRESS NOTE SERVICE DATE: 08/02/2024 SERVICE TIME: 12:00 pm SW met with [facility] for update. Pt is altered and unable to participate in assessment. Sw will contact [facility]. Plan is to transfer to [facility]. Pt is presented after a fall striking head. Intubated for airwayprotection. Extuabted to [place]. SIGNATURE: RUTH Maurice PATIENT NAME: Saray Corbin DATE: August 02, 2024 TIME: 1:01 PM PAGER/CONTACT #: * Christina Mosqueda CCC-SANDING MACHINE OPERATOR OR TENDER - 08/02/2024 12:52 PM EDT Clinical Swallow Evaluation SERVICE DATE: 08/02/2024 SERVICE TIME: 1252 to 1316 ROOM: [place] [address] IMPRESSION Swallow Deficits Identified / Suspected: Oropharyngeal dysphagia Patient presents clinically with oropharyngeal dysphagia, likely acute on chronic in the setting ofrecent fall with +LOC, subarachnoid hemorrhage and intubation (07/31-08/01) with known history of a stroke with residual left weakness. Patient does not appear safe to continue an oral diet at this time. If pathologic aspiration is occurring, patient appears to be at an increased risk for developing pulmonary complications related to dysphagia due to the following factors: reduced mobility, increased dependence on caregivers for oral hygiene and feeding, reduced cognitive status, poor oral hygiene, and impaired pulmonary status. The following medical history place this patient at an increased risk for developing dysphagia: oropharyngeal dysphagia, CVA with left weakness, HTN, GERD, Seizure, s/p Tracheostomy (removed), acute respiratory failure, and alcohol abuse. Instrumental swallow study is warranted to objectively assess swallow anatomy and physiology. Assessment Comments: Patient was seen for clinical swallow evaluation, yet was unable to complete the cognitive evaluation 2* increased respiratory rate with RN reporting alcohol and benzo withdrawalat this time. Will plan to complete at a later time when the patient is able to fully participate. In addition, during the clinical swallow evaluation, the patient demonstrated increased respiratory rate to high 30's, requiring rest break-lowering to mid 20's. RECOMMENDATIONS Diet Recommendations NPO with alternative means of nutrition May have small, single crushed ice chips for comfort if cleared by the physician under the following conditions: 1. Aggressive oral care prior to ice chips (gums, teeth, tongue, roof of mouth, etc.) 2. Ice chips given under supervision of the RN/PCNA 3. No more than 5-10 ice chips per sitting up to 3-5 times per day 4. 1 Ice chip given at a time Swallow Strategy Recommendations Rigid Oral Hygiene Nursing Recommendations Routine Rigid Oral Hygiene, Allowance for ice chips Instrumental Swallow Study Recommendations Modified Barium Swallow Study (MBSS) Response to Therapy Interventions: Fatigue, Requires additional time/repetition, Confusion interferes with education Rehabilitation Precautions: Aspiration Precautions, Dysphagia, Cognitive Linguistics Deficits DISCHARGE RECOMMENDATIONS Recommended Discharge Disposition: Continued Skilled Speech Therapy Recommended Discharge Disposition Comments: dysphagia Tx CURRENT HOSPITAL COURSE Patient was transferred from [facility] as a Trauma II following a recent fall at home wherehe hit his right evangelical on a countertop with +LOC. Patient presents wtih a traumatic subarachnoid hemorrhage. 08/01: Brain MRI: Small focus of diffusion restriction posterior LEFT aspect of the patsy as above. Stable intraventricular blood products. 08/01: Chest CT: 1. Acute versus subacute posterior RIGHT 9th-12th rib fxs. 2. Subacute appearing transverse sternum fracture. 3. Trace RIGHT pleural effusion. 4. Mild centrilobular emphysema. 5. Incidental 17 mm groundglass nodule in the RIGHT upper lobe. Recommend follow-up chest CT in 6-12 months. 6. Hepatic steatosis. Reason for Speech Therapy Consult: Swallow evaluation 2* patient failing the RN swallow screen and due to recent intubation 07/31-08/01/24. In addition, cognitive evaluation recommended 2* patient suffering a recent fall with +LOC and Dx of a subarachnoid hemorrhage. Relevant Past Medical History: Oropharyngeal Dysphagia, HTN, Alcohol Abuse, Anemia, Stroke, COPD, CHF, Pancreatitis, Adult respiratory distress syndrome, Arthritis, CAD, Depression, Anxiety, GERD, Seizure, s/p Tracheostomy (2022), Stroke with residual lower weakness, LUZ HOME ENVIRONMENT / PRIOR FUNCTIONAL LEVEL Prior Functional Level: Required Assistance Patient Lives With: Spouse Assistance Required With: Transportation, Medication Management, Meals Assistance Available: Unable to determine at this time Prior Swallowing Function/Diet Textures: Regular Consistency, Thin Liquids IDDSI Level 0 (per patient) SUBJECTIVE Patient stated his name, yet unable to state his birthday, but nodded his head yes when prompted bySLP. Noted dysphonia and episodes of aphonia. Patient reported he is thirsty. THERAPY DIAGNOSIS Dysphagia, unspecified TREATMENT INTERVENTIONS Clinical Swallow Evaluation (01928), Dysphagia Therapy (00676) Skilled Treatment Time (minutes): 24 TRAINING AND EDUCATION PROVIDED IN Dysphagia Management, Caregiver Education, Swallowing Strategies, Results and Recommendations of Session THERAPEUTIC SKILLS USED Education on role of discipline / importance of activity, Teach-back for confirmation of education provided, Verbal cuing, Modified behavior for increased success, Demonstration / modeling of taught behavior / exercise, Analyze current use of strategies taught OBJECTIVE Current Status Oral Hygiene: Thick dried secretions throughout mouth, Impaired Oral Health, Oral Health AssessmentTool (OHAT) Dentition: Retains Natural Dentition, Miscellaneous Missing Teeth Current Feeding Method: IV Current Diet Textures: NPO Current Level Of Communication: Verbal Current Management Of Secretions: Strong cough, Able to self-manage Oral Motor Exam: Within Functional Limits Except Facial Symmetry Impaired: Left Labial Assessment: Generalized weakness, Reduced sensory awareness, Xerostomia (dry secretions on lips) Labial ROM Impaired: Left Labial Strength Impaired: Left Lingual Assessment: Generalized weakness, Xerostomia Lingual ROM Impaired: Left Lingual Strength Impaired: Bilateral Jaw Range of Motion: Limited ROM Palatal Elevation: (uanble to assess 2* poor jaw ROM) ORAL HEALTH ASSESSMENT TOOL Lips: 2 Tongue: 1 Gums and Tissues: 0 Saliva: 1 Natural Teeth: 2 Dentures: N/A Oral Cleanliness: 1 Dental Pain: 0 OHAT Total Score: 7 COGNITION Cognitive Status: (uanble to assess 2* going through alcohol withdrawal with elevating respiratory rates to high 30's) SPEECH/VOICE/LANGUAGE Vocal Quality: Aphonic, Reduced Vocal Intensity, Hoarse (dysphonia with episdoes of aphonia) SWALLOW ASSESSMENT Position Of Patient During Assessment: Upright In Bed Feeding Method: SANDING MACHINE OPERATOR OR TENDER Fed Patient Consistencies Presented: Ice Chips, Thin Liquids IDDSI Level 0 Ice Chips Oral Phase: Bolus Holding Thin Liquids Oral Phase: Impaired A-P Transfer, Suspected Reduced Oral Control, Bolus Holding Thin Liquids Pharyngeal Phase: Suspect Delayed Swallow, Suspect Reduced Range of Hyoid/Laryngeal Elevation, Cough- Immediate Compensatory Strategies Utilized During Assessment: Check oral cavity for remaining food, Ensure heightened awareness to completion of the swallow, Sit upright 90 degrees for all PO, Small Bite/Sip, Throat clear, reswallow, Voice checks Previous Swallow Study: Clinical Swallow, MBS (CLIN: 05/16/22: NPO: MBSS: 05/16/22: NPO) GOALS SWALLOWING: Patient / Caregiver will demonstrate knowledge of taught compensatory strategies and dietary consistency recommendations to optimize functional swallow function without overt clinical signs and symptoms of aspiration or dysphagia Speech Rehab Potential: Good Good Rehab Potential Due To: Current objective clinical presentation Progress Toward Goals: Progressing slower than expected Patient /Caregiver Goals: Resume PO Intake ACUTE CARE TREATMENT PLAN ST Frequency: 3 Times Per Week Treatment Interventions: Dysphagia Management Plan of Care Developed with: Patient, Nurse, Physician Plan for next visit: Modified Barium Swallow Results, Swallowing Strategies, Respiratory Support / Assessment, Dysphagia Management SIGNATURE: TYRON So PATIENT NAME: Sraay Corbin DATE: August 02, 2024 TIME: 4:00 PM * Black Carter APRN.KENO WRITER - 08/02/2024 8:00 AM EDT TRAUMA PROGRESS NOTE SERVICE DATE: 08/02/2024 SERVICE TIME: 824 Subjective HISTORY (LAST 24 HOURS): Overnight patient started on phenobarb taper d/t suspected withdrawal as family reports heavy drinking habits at home. Per nightshift, patient became tremulous, tachycardic and diaphoretic with otherwise stable neuro exam. This morning seen at bedside, easy to arouse but remains only alert to person. Right sided weakness, ataxia, and slight right sided facial droop appreciated. Patient became anxious with repositioning in bed. No seizure activity noted on BEM since admission, will DC today. PT/OT evaluation pending. Plan to transfer to [facility] later today. Not medically appropriate for discharge at this time. Current Facility-Administered Medications Medication Dose Route Frequency ondansetron 4 mg tab(s) (ZOFRAN) 4 mg ORAL q 6 H PRN Or ondansetron (PF) 4 mg injection (ZOFRAN) 4 mg INTRAVENOUS q 6 H PRN levETIRAcetam 1,000 mg injection (KEPPRA) 1,000 mg INTRAVENOUS BID dextrose 40 % 15 g 15 g ORAL PRN Or glucagon 1 mg injection 1 mg INTRAMUSCULAR PRN Or dextrose 10% iv bolus 12.5 g INTRAVENOUS PRN sodium chloride 0.9 % (flush) 2-10 mL (BD POSIFLUSH) 2-10 mL INTRAVENOUS DIRECTED PRN And perflutren lipid microspheres 1.1 mg/mL 1.3 mL injection (DEFINITY) 1.3 mL INTRAVENOUS DIRECTED PRN hydrALAZINE 10 mg injection (APRESOLINE) 10 mg INTRAVENOUS q 6 H PRN NaCl 0.9% iv flush bag 20 mL INTRAVENOUS PRN NaCl 0.9% iv infusion 50 mL/hr INTRAVENOUS CONTINUOUS iv contrast (radiology procedure) INTRAVENOUS DIRECTED PRN acetaminophen 650 mg tab(s) (TYLENOL) 650 mg ORAL q 6 H PRN oxyCODONE IR 2.5 mg tab(s) (ROXICODONE) 2.5 mg ORAL q 6 H PRN fentaNYL 50 mcg/mL 25 mcg injection (SUBLIMAZE) 25 mcg INTRAVENOUS q 4 H PRN tamsulosin 0.4 mg cap(s) (FLOMAX) 0.4 mg ORAL DAILY QUEtiapine 25 mg tab(s) (SEROquel) 25 mg ORAL AT BEDTIME escitalopram oxalate 30 mg tab(s) (LEXAPRO) 30 mg ORAL DAILY pantoprazole DR 40 mg tab(s) (PROTONIX) 40 mg ORAL DAILY rosuvastatin 20 mg tab(s) (CRESTOR) 20 mg ORAL DAILY insulin lispro injection (rapid acting) (ADMElog) SUBCUTANEOUS q 6 H thiamine 200 mg injection 200 mg INTRAVENOUS q 8 H Followed by [START ON 08/04/2024] thiamine 100 mg tab(s) (VITAMIN B1) 100 mg ORAL/FEEDING TUBE TID PHENobarbital 65 mg injection 65 mg INTRAVENOUS q 12 H Followed by PHENobarbital 32.5 mg injection 32.5 mg INTRAVENOUS q 12 H Followed by [START ON 08/04/2024] PHENobarbital 32.5 mg injection 32.5 mg INTRAVENOUS q 24 H Objective PHYSICAL EXAM: Temp (24hrs), Av.8 ??C (98.3 ??F), Min:36.5 ??C (97.7 ??F), Max:37.1 ??C (98.8 ??F) BP 139/62 Pulse 111 Temp (Src) 98.4 (Oral) Resp 15 Ht 5' 8.898 (1.75m) Wt 132 lb 15 oz (60.3kg) SpO2 97% BMI 19.69 kg/(m^2). O2 Therapy: Room Air Genl: Appears age appropriate. No acute distress. Resting comfortably. Head/Face: Normocephalic. Right temporal abrasion Eyes: PERRLA. EOMI. Sclera not icteric ENMT: External auditory canals clear. Oropharynx is clear. Nasopharynx is clear. Neck: No mid-line masses. No bruits. No LAD. C-spine non-tender. Back: T & L Spine non-tender, no step-offs noted. No flank tenderness. Resp: Lungs clear bilat. No wheezes. No rales. Breathing is non-labored. CVS: RRR. No murmur, rub, gallop. 2+ pulses at RA, DP, PT bilat. GI: Abdomen is soft, non-tender, not distended. Bowel sounds normal. No peritonitis. MSK: Extremities without clubbing, cyanosis, edema. Normal ROM x 4. Skin: Warm and dry. No lesions of concern. Not jaundiced. Right elbow abrasion Neuro: A&Ox1. Noted weakness of the right arm and leg 3/5, 4/5 strength on the left, mild rightfacial droop Psych: Drowsy but arouses to voice, anxious LABS/IMAGING (pertinent to today's evaulation): Imaging reviewed today: Labs: Recent Labs 08/02/24 0500 08/01/24 0442 07/31/24 0700 WBC 10.49 9.39 10.29 HB 8.5* 7.2* 7.7* HCT 28.7* 23.8* 25.7* PLT 374 320 358 NA 133* 135* 131* K 4.3 3.2* 3.9 CHLOR 97* 99 99 CO2 17* 22 22 CREAT 0.49* 0.53* 0.59* P -- 2.9 -- BUN 3* 3* 3* GLUC 102* 91 130* TPROT -- -- 6.1* ALB -- -- 3.2* MG 1.9 1.0* -- CA 8.0* 8.0* 7.5* ALKPHOS -- -- 241* TBILI -- -- 0.2 AST -- -- 21 ALT -- -- 16 LIPASE -- -- 29 APTT -- -- 27.8 INR -- -- 1.0 Assessment/Plan ACTIVE PROBLEM LIST Severe Protein-Calorie Malnutrition (Hcc) Nicotine use disorder, F17.2 Ards (Adult Respiratory Distress Syndrome) ([facility]) Status Post Tracheostomy ([facility]) Pleural Effusion Transudative Pancreatic Insufficiency (Hcc) Pharyngeal Dysphagia C. Difficile Diarrhea Iron Deficiency Anemia Secondary to Inadequate Dietary Iron Intake Anemia of Chronic Disease Stress-Induced Cardiomyopathy Dysphagia History of Seizures Stroke ([facility]) Anxiety and Depression Copd (Chronic Obstructive Pulmonary Disease) ([facility]) Luz (Obstructive Sleep Apnea) Htn (Hypertension) Chf (Congestive Heart Failure) ([facility]) Cad (Coronary Artery Disease) Hld (Hyperlipidemia) Subarachnoid Hemorrhage ([facility]) Diabetes Mellitus Type 2, Controlled, Without Complications ([facility]) Anticoagulated On Mechanically Assisted Ventilation ([facility]) Closed Fracture of Multiple Ribs of Right Side Closed Fracture of Body of Sternum Syncope and Collapse ASSESSMENT/PLAN: Assessment & Plan Subarachnoid hemorrhage ([facility]) - Neurosurgery consulted - Non operative management - Neuro checks Q 4 - Repeat CT brain: Stable - MRI 08/01: Small focus of diffusion restriction posterior LEFT aspect of the patsy - BEM DC 08/02 as no seizure activity noted. Moderate diffuse encephalopathy - SBP goal: < 140 - DVT ppx: SCD's - 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 - Seizure prophylaxis: keppra - PT/OT: pending - MM pain control Pharyngeal dysphagia - SANDING MACHINE OPERATOR OR TENDER eval pending, failed nursing bedside swallow - NPO currently - Continue home PPI Stress-induced cardiomyopathy - Most recent EF ~ 43% - Holding home entresto, aldactone and metop - Repeat echo: LV moderately dilated with Lvef 55%, left atrial cavity severely dilated, mild MVR, and mild pHTN. Compared to prior exam from 05/2022 LV fx improved. History of seizures - No home AEDs - Will continue keppra 1g BID - BEM DC today as no seizure activity noted. 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 Compared to prior exam from 05/2022 LV fx improved. - Tele Syncope and collapse - Unclear etiology of fall - Reports multiple falls and dizziness at home per - Echo: LV moderately dilated with Lvef 55%, left atrial cavity severely dilated, mild MVR, and mild pHTN. Compared to prior exam from 05/2022 LV fx improved. - Carotids: Bilateral carotid artery duplex with approximately 0-29% stenosis bilaterally. - Tele Alcohol abuse -Patient reported to be heavy drinker per family -Started on phenobarb taper 08/02 -[facility] VTE Prophylaxis: Contraindicated ICH SCDs Diet:NPO PT/OT: Pending Dispo:Appropriate for transfer to [facility] I spent a total of 35 minutes on the date of the service which included preparing to see the patient, [id number] patient care, completing clinical documentation, obtaining and/or reviewing separately obtained history, performing a medically appropriate examination, counseling and educating the pat ient/family/caregiver, ordering medications, tests, or procedures, communicating with other HCPs (not separately reported), independently interpreting results (not separately reported), communicatingresults to the patient/family/caregiver, and care coordination (not separately reported). SIGNATURE: Black Carter APRN.KENO WRITER PATIENT NAME: Saray Corbin DATE: August 02, 2024 TIME: 8:00 AM * Gabriela Hernandez OTR/Gennaro - 08/02/2024 7:39 AM EDT OCCUPATIONAL THERAPY MISSED VISIT SERVICE DATE: 08/02/2024 SERVICE TIME: 737 ROOM: [facility]- Patient not seen due to Incomplete Orders. Bedrest. SIGNATURE: CHRISTIAN Sullivan/Gennaro PATIENT NAME: Saray Corbin DATE: August 02, 2024 TIME: 7:39 AM * Katharina Triplett MD - 08/02/2024 7:11 AM EDT Surgical ICU Progress Note Service Date: August 02, 2024 Service Time: 948 Admission Date: 07/31/2024 Hospital Day: # 2 CARE COORDINATION NOTE Indication for ICU Admission: Traumatic Subarachnoid Hemorrhage Important/Relevant PMH/PSH: Dysphagia Status post tracheostomy (2022) Nicotine use disorder - 1.0ppd, since 1986 History of seizures - Last seizure was 5-10 yrs ago Stroke with residual LUE/LLE weakness (on plavix) Anxiety and depression COPD LUZ (no CPAP at home) HTN CHF (last ECHO 05/26 w/ EF = 43 ?? 5) Preadmission Hospital Course: 63 year old male with a who initially presented s/p mechanical fall with head strike on granite counter top with + LOC. He was intubated for airway protection and impending clinical course per reports. Initiated on IV Propofol for sedation. CT Brain performed revealing SAH with intraventricular extension thought to be traumatic in origin. CCT dispatched for emergent transfer to [facility] ED for further NSGY evaluation and management in the setting of above. Chronological List of Surgeries and Major Events (Diagnosis): (Surgeries in bold characters) 07/31/2024: Admitted to SICU intubated. Extubated to [place] Major Events within past 24 hours Phenobarbital taper CIWA started MRI done yesterday evening, no acute findings AO x1 this morning, anxious and tachycardic A/P of Major Active Problems (excluding routine care and common problems): Neuro: # hx stroke with residual LUE/LLE weakness # hx seizures # acute SAH - Pain control: Sched Tylenol, prn oxy, fentanyl - Sedation: None - Delirium: Monitor - On home lexapro - Continue keppra 1g BID - q4h neuro checks - Hold AC/AP - Repeat CTH 08/01 stable - BEM, no seizures for last 24hrs - NSGY consulted - MRI performed yesterday, no major changes - Phenobarbital taper started, 32.5mg today - Started seroquel 25mg at bedtime yesterday CV: # hx HTN, CHF - Continuous cardiac monitoring - Maintain SBP < 140, MAP >65 - HR 110s-120s, MAPs 70s-90s - PRN hydralazine available - Restarted home crestor, holding metoprolol, entresto, aldactone and plavix Pulm: # hx COPD, LUZ - Aggressive BPH/IS - On RA - Oxygen management per RT protocol GI: - Diet: NPO. Failed bedside swallow, SANDING MACHINE OPERATOR OR TENDER consult - Decompression: None - Nausea regimen: Zofran PRN - Bowel regimen: None Renal/FEN: - IVFs: NS @ 50 while NPO - Strict I&Os - Daily weight - Monitor electrolytes and supplement as needed - Holding home flomax - UOP 2.2L in interval - BUN/Cr 3/0.49 today ID: - ABX: None indicated Heme: - Hgb 8.5<7.2 - Monitor H&H - Transfuse for Hgb <7 Endo: - Maintain blood glucose - Holding home farxiga - SSI #2 MSK: - OOB/ambulate as tolerated - PT/OT when able Lines/Drains: - PIV PPX: - DVT: SCDs, start SQH today - Stress ulcers: Protonix Daily Plan Summary and To Dos/Watch: - Q4h neurochecks Barriers to transfer out of ICU: Neuro monitoring Disposition: SICU Other Problems I reviewed and/or Managed During This Encounter: Principal Problem: Subarachnoid hemorrhage (HCC) (POA: Yes) Active Problems: Pharyngeal dysphagia (POA: Yes) Stress-induced cardiomyopathy (POA: Yes) History of seizures (POA: Yes) Stroke (HCC) (POA: Yes) Anxiety and depression (POA: Yes) LUZ (obstructive sleep apnea) (POA: Yes) HLD (hyperlipidemia) (POA: Yes) Diabetes mellitus type 2, controlled, without complications (HCC) (POA: Unknown) Anticoagulated (POA: Unknown) On mechanically assisted ventilation (HCC) (POA: Unknown) Closed fracture of multiple ribs of right side (POA: Yes) Closed fracture of body of sternum (POA: Yes) Syncope and collapse (POA: Yes) Resolved Problems: * No resolved hospital problems. * No problems updated. OBJECTIVE Vitals: 08/02/24 0430 08/02/24 0500 08/02/24 0608 08/02/24 0623 Pulse: 117 109 115 111 BP: 139/68 146/74 149/79 139/62 MAP Non Invasive (Mean Arterial Pressure): 89 96 99 85 Resp: 25 (!) 32 22 15 SpO2: 99% 97% 97% 97% There were no vitals filed for this visit. Intake/Output Summary (Last 24 hours) at 08/02/2024 0949 Last data filed at 08/02/2024 0900 Gross per 24 hour Intake 1269 ml Output 1910 ml Net -641 ml Weight: 63.5 kg (139 lb 15.9 oz) (07/31/24 0732) Weight: 60.3 kg (132 lb 15 oz) (08/02/24 0545) PHYSICAL EXAM Respiratory Support: Nasal Cannula Vent/Oxygen: Physical Examination: (Choices are re-selectable with right click) General Appearance and Neuro: disoriented, AOx1 BEM in [address] Heart and Vascular: Regular rate and rhythm, no ectopy, no murmur, strong peripheral pulses and Tachycardia Respiratory: Lungs clear to auscultation. No wheezing, rhonchi, or rales Abdomen: Soft and Non-tender Renal: Adequate urine output Extremities/MSK/Incision: No edema, warm, no lesions DATA Diagnostic Tests Reviewed: Most recent labs and imaging results. Most recent labs Labs: Refer to Results Section Supportive Therapies Glycemic Control: Sliding Scale Insulin DVT: Current Anticoagulants & Antiplatelets (From admission, onward) None Active VTE Risk Category Order: 07/31/24 1200 VTE RISK CATEGORY: SURGICAL HIGH RISK ([place]) Active VTE Medication Orders: Active VTE Prophylaxis Orders: 08/02/24 0815 ACTIVITY - MOBILIZE PATIENT ([place]) 07/31/24 1200 VTE PHARMACOLOGIC PROPHYLAXIS CONTRAINDICATED ([place]) 07/31/24 1200 PNEUMATIC COMPRESSION SLEEVE(S) ([place], [place]) Lines, Drains, and Airways Line Duration Peripheral 07/31/24 1316 Right Forearm 22 Gauge 1 day Peripheral 08/01/24 0614 Left Arm 22 Gauge 1 day Drain Duration Indwelling Urinary Catheter 07/31/24 1201 [facility] 1 day DAILY ICU CHECKLIST ICU Checklist A= Assess, Prevent, Manage Pain C= Choice of Sedation and Analgesia B= Both Spontaneous Awakening and Breathing Trials D= Delirium: Assess, Prevent and Manage E= Early Mobility/Excercise ICU Mobility: F= Family Engagement and Empowerment ICU plan of care visit at bedside in last 24 hours: Yes, Provider, RN, Patient/ designee ICU Disposition: Prevention: VTE Prophylaxis: ATTESTATION Critical Care Supervising: EDUARD Supervising Resident/Fellow Staff Note This patient has a high probability of sudden, clinically significant deterioration, which requiresthe highest level of physician preparedness to intervene urgently. I managed/ supervised life or organ supporting interventions that required frequent physician assessment. I devoted my full attention to the direct care of this patient, including physical examination, verifying findings with the resident/fellow physician, reviewing labs and imaging, discussing with primary physician and consultants, and developing a plan of care with the bedside nurse for the amount of time indicated below. Critical Care Documentation: The patient has the following organ/system impairment(s): Time spent providing critical care services: minutes. The time excludes any associated procedures which will be documented and billed separately. SIGNATURE: Katharina Triplett MD PATIENT NAME: Saray Corbin DATE: August 02, 2024 TIME: 9:49 AM Cosigned by Susanna Lima MD at 08/02/2024 3:59 PM EDT Associated attestation - Susanna Lima MD - 08/02/2024 3:59 PM EDT Non Critical Care Supervising Time Based: [facility] STAFF Note of Personal Involvement in Care I have reviewed and verified the recent history and physical examination obtained and documented bythe resident/fellow physician and I personally participated in the herrera components. I spent a total of 15 minutes on the date of the service which included TIME SPENT TODAY: preparingto see the patient, [id number] patient care, completing clinical documentation, performing a medically appropriate examination, ordering medications, tests, or procedures, communicating with other HCPs (not separately reported), independently interpreting results (not separately reported), and com municating results to the patient/family/caregiver SIGNATURE: Susanna Lima MD PATIENT NAME: Saray Corbin DATE: August 02, 2024 TIME: 3:59 PM * Susanna Lima MD - 08/01/2024 9:52 AM EDT [place] SICU Progress Note Service Date: August 01, 2024 Service Time: 1230 Admission Date: 07/31/2024 Hospital Day: # 1 CARE COORDINATION NOTE Indication for ICU Admission: Traumatic Subarachnoid Hemorrhage Important/Relevant PMH/PSH: Dysphagia Status post tracheostomy (2022) Nicotine use disorder - 1.0ppd, since 1986 History of seizures - Last seizure was 5-10 yrs ago Stroke with residual LUE/LLE weakness (on plavix) Anxiety and depression COPD LUZ (no CPAP at home) HTN CHF (last ECHO 05/26 w/ EF = 43 ?? 5) Preadmission Hospital Course: 63 year old male with a who initially presented s/p mechanical fall with head strike on granite counter top with + LOC. He was intubated for airway protection and impending clinical course per reports. Initiated on IV Propofol for sedation. CT Brain performed revealing SAH with intraventricular extension thought to be traumatic in origin. CCT dispatched for emergent transfer to [facility] ED for further NSGY evaluation and management in the setting of above. Chronological List of Surgeries and Major Events (Diagnosis): (Surgeries in bold characters) 07/31/2024: Admitted to SICU intubated. Extubated to [place] Major Events within past 24 hours Extubated to [place] Repeat CTH today AM stable CT Chest with rib fx A/P of Major Active Problems (excluding routine care and common problems): Neuro: # hx stroke with residual LUE/LLE weakness # hx seizures # acute SAH - Pain control: Sched Tylenol, prn oxy, fentanyl - Sedation: None - Delirium: Monitor - Resume home seroquel and lexapro when extubated or enteral access established - Continue keppra 1g BID - q4h neuro checks - Hold AC/AP - Repeat CTH 08/01 stable - BEM, no seizures for last 24hrs - NSGY consulted, MRI brain today CV: # hx HTN, CHF - Continuous cardiac monitoring - Maintain SBP < 140, MAP >65 - Holding crestor, metoprolo, entresto, aldactone and plavix Pulm: # hx COPD, LUZ - Aggressive BPH/IS - Oxygen management per RT protocol GI: - Diet: NPO. Advance to CLD, passed bedside swallow - Decompression: None - Nausea regimen: Zofran PRN - Bowel regimen: None Renal/FEN: - IVFs: NS @ 50 while NPO - Strict I&Os - Daily weight - Monitor electrolytes and supplement as needed - Holding home flomax ID: - ABX: None indicated Heme: - Hgb 7.2 (7.7) - Monitor H&H - Transfuse for Hgb <7 Endo: - Maintain blood glucose - Holding home farxiga - SSI #2 MSK: - OOB/ambulate as tolerated - PT/OT when able Lines/Drains: - PIV PPX: - DVT: SCDs, hold chemo ppx for 48 hrs - Stress ulcers: Protonix Daily Plan Summary and To Dos/Watch: - Q4h neurochecks - MRI brain Barriers to transfer out of ICU: Neuro monitoring Disposition: SICU Other Problems I reviewed and/or Managed During This Encounter: Principal Problem: Subarachnoid hemorrhage (HCC) (POA: Yes) Active Problems: Pharyngeal dysphagia (POA: Yes) Stress-induced cardiomyopathy (POA: Yes) History of seizures (POA: Yes) Anxiety and depression (POA: Yes) Diabetes mellitus type 2, controlled, without complications (HCC) (POA: Unknown) Anticoagulated (POA: Unknown) On mechanically assisted ventilation (HCC) (POA: Unknown) Resolved Problems: * No resolved hospital problems. * No problems updated. OBJECTIVE Vitals: 08/01/24 1000 08/01/24 1100 08/01/24 1137 08/01/24 1200 Pulse: 112 105 111 113 BP: 126/62 134/69 115/73 127/63 MAP Non Invasive (Mean Arterial Pressure): 79 89 79 82 Resp: 17 15 21 (!) 32 SpO2: 99% 100% 98% 96% There were no vitals filed for this visit. Intake/Output Summary (Last 24 hours) at 08/01/2024 1230 Last data filed at 08/01/2024 1200 Gross per 24 hour Intake 1269 ml Output 2015 ml Net -746 ml Weight: 63.5 kg (139 lb 15.9 oz) (07/31/24 0732) Weight: 65.2 kg (143 lb 11.8 oz) (08/01/24 0506) PHYSICAL EXAM Respiratory Support: On Room Air Vent/Oxygen:O2 Therapy: Room Air (08/01/24 1200) Physical Examination: (Choices are re-selectable with right click) General Appearance and Neuro: No Acute Distress, follows commands, moving all extremities, Speech Normal, and Oriented x 1-2 (self, place). Slight right facial droop Heart and Vascular: Regular rate and rhythm, no ectopy, no murmur, strong peripheral pulses Respiratory: Mildly reduced breath sounds bilateral bases Abdomen: Soft and Non-tender Renal: Adequate urine output and Ahn in place Extremities/MSK/Incision: No edema, warm, no lesions DATA Diagnostic Tests Reviewed: Most recent labs and imaging results. Labs: Refer to Results Section Supportive Therapies Glycemic Control: Sliding Scale Insulin DVT: Current Anticoagulants & Antiplatelets (From admission, onward) None Active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 Take 40 mg by mouth once daily. peg 3350-Electrolytes (GOLYTELY) 236-22.74-6.74 -5.86 gram suspension No No Sig: Refer to printed patient instructions that will be mailed to you. pregabalin (LYRICA) 75 mg capsule Yes No Sig: Take 75 mg by mouth two times a day. rosuvastatin (CRESTOR) 20 mg tablet Yes No Sig: Take 20 mg by mouth once daily. sacubitril-valsartan (ENTRESTO) 24-26 mg tablet Yes No Sig: Take 1 tablet by mouth two times a day. sildenafil (VIAGRA) 100 mg tablet Yes No Sig: Take 100 mg by mouth once daily as needed. spironolactone (ALDACTONE) 25 mg tablet Yes No Sig: Take 12.5 mg by mouth once daily. Take 0.5 tablets (12.5 mg) by mouth once daily tamsulosin (FLOMAX) 0.4 mg Yes No Sig: Take 0.4 mg by mouth once daily. traMADol (ULTRAM) 50 mg tablet Yes No Sig: Take 50 mg by mouth every 6 hours as needed for pain. Facility-Administered Medications: None DATE OF LAST TETANUS: Unknown Immunization History Administered Date(s) Administered COVID-19 vaccine ([employer]) 01/29/2021 PAST MEDICAL HISTORY Diagnosis Date Alcohol use disorder ARDS (adult respiratory distress syndrome) (HCC) Arthritis Congestive heart failure (HCC) Coronary artery disease Depression GERD (gastroesophageal reflux disease) Iron deficiency anemia Pancreatitis (HCC) Seizure (HCC) PAST SURGICAL HISTORY Procedure Laterality Date LAPAROSCOPY SURG CHOLECYSTECTOMY 10/10/2022 PAST SURGICAL HISTORY OF EGDs with dilation TRACHEOSTOMY Social History Tobacco Use Smoking status: Every Day Current packs/day: 1.00 Types: Cigarettes Smokeless tobacco: Never Tobacco comments: 1.0ppdx since 1986 Vaping Use Vaping status: Never Used Substance Use Topics Alcohol use: Yes Alcohol/week: 8.0 standard drinks of alcohol Types: 8 Cans of beer per week Comment: occ during football games/cook outs Drug use: Never FAMILY HISTORY Problem Relation Age of Onset Anesthesia Problems No Family History Blood Clots No Family History ROS: Is the patient having any pain? Unable to obtain - currently intubated/sedated Constitutional: Unable to obtain due to mental status or language barrier Eye/Ear/Nose: Unable to obtain due to mental status or language barrier Respiratory: Unable to obtain due to mental status or language barrier Cardiovascular: Unable to obtain due to mental status or language barrier GI/Liver/Biliary: Unable to obtain due to mental status or language barrier Genitourinary: Unable to obtain due to mental status or language barrier Psychiatric: Unable to obtain due to mental status or language barrier Neurologic: Unable to obtain due to mental status or language barrier Musculoskeletal: Unable to obtain due to mental status or language barrier Integument: Unable to obtain due to mental status or language barrier Endocrine: Unable to obtain due to mental status or language barrier Heme/Lymph: Unable to obtain due to mental status or language barrier Objective PRIMARY SURVEY AIRWAY: Patent BREATHING: Breath sounds equal CIRCULATION: PT/DP palpable bilaterally, Radials palpable bilaterally DISABILITY: Eye: 2=To Pain Verbal: 1=No Response Motor: 6=Obeys Commands Total GCS: 9=3 (adjusted: 8T) Resp Rate: 10 to 29=4 Syst BP: > than 89=4 REVISED TRAUMA SCORE: 11 EXPOSE / ENVIRONMENT: Warm Blankets PROCEDURES: Intubation: Oral (performed prior to transfer) SECONDARY SURVEY VITALS: 07/31/24 0646 BP: 120/67 Pulse: 86 Resp: 16 Temp: 36.6 ??C (97.9 ??F) SpO2: 100% NEURO: intubated and sedated HEENT: Head: Right temporal abrasion, no bony step offs, midface stable to palpation, Eyes: PERRL, conjunctiva/corneas without lesions, EOM intact, Ears: Canals without blood or CSF drainage, TMs clear, external ears without lacerations, Nose: Septum midline, no crepitus with motion, Throat: Oral mucosa without lacerations, teeth in place, tongue without lacerations NECK: No midline pain with palpation, No lacerations/wounds, Trachea midline RESPIRATORY: No abrasions or contusions, No crepitus, Equal Excursion CARDIOVASCULAR: Heart rate regular, S1S2 with no R/M/G ABDOMEN: Non-distended, No masses or organomegaly PELVIC/PERINEAL: No blood noted at urethra meatus, anh previously placed BACK/SPINE: No step off or deformity noted, No external injury noted EXTREMITIES: Arm/Shoulder normal bilaterally, Forearm/Elbow left normal and right abrasion over olecranon process with underlying hematoma, Hand/Wrist normal bilaterally, Thigh/Hip normal bilaterally, Leg/Knee normal bilaterally, Foot/Ankle normal bilaterally RADIOLOGICAL/OTHER TEST DATA: CXR: No traumatic injuries Pelvis: No traumatic injuries RUE: No traumatic injuries PRIOR TO ARRIVAL: No Loss of Consciousness Oral ETT Ahn IMAGES CT BRAIN WO IVCON Result Date: 07/31/2024 * * *Final Report* * * DATE OF EXAM: Jul 31 2024 10:43AM [facility] 0504 - CT BRAIN WO IVCON / PROCEDURE REASON: Subarachnoid hemorrhage (SAH), follow up * * * * Physician Interpretation * * * * EXAMINATION: CT BRAIN WO IVCON CLINICAL HISTORY: Subarachnoid hemorrhage follow-up TECHNIQUE: Serial axial images without IV contrast were obtained from the vertex to the foramen magnum. MQ: [id number] CT Radiation dose: Integrated Dose-Length Product (DLP) for this visit = 731 mGy*cm CT Dose Reduction Employed: Iterative recon COMPARISON: CT 07/23/2024. RESULT: Post-operative change: None. Acute change: No evidence of an acute infarct or other acute parenchymal process. Hemorrhage: Hemorrhage seen in the left lateral ventricle. Trace layering hemorrhagic in the occipital horns bilaterally. Small amount of hemorrhage in the fourth ventricle. Trace subarachnoid hemorrhage overlying the right temporal lobe (image 20, 2). Small amount of subarachnoid hemorrhage overlying the tentoriumon the left (image 13, 2) Mass Lesion / Mass Effect: There is no evidence of an intracranial mass or extraaxial fluid collection. No significant mass effect. Chronic change: Scattered patchy foci of low attenuation are present within the supratentorial white matter, a nonspecific finding that most commonly represents mild small vessel disease. Parenchyma: There is mild generalized volume loss. The brain parenchyma is otherwise within normal limits for age. Ventricles: Ventricular enlargement concordant with the degree of parenchymal volume loss. Paranasal sinuses and skull base: Layering blood products in the right maxillary sinus and the left sphenoid sinus. Similar to prior study. Minimalsubcutaneous edema overlying the right frontal region. Localizer images: No additional findings. IMPRESSION: 1. Intraventricular and subarachnoid hemorrhage again seen. Similar to prior study. 2. Layering blood products in the right maxillary sinus and left sphenoid sinus, unchanged Front End Assistant: [employer] Transcribe Date/Time: Jul 31 2024 11:13A Dictated by : UGSTAVO QUINTANA MD This examination was interpreted and the report reviewed and electronically signed by: GUSTAVO QUINTANA MD on Jul 31 2024 11:25AM EST XR ELBOW GENERAL 2V AP/LAT RIGHT Result Date: 07/31/2024 * * *Final Report* * * DATE OF EXAM: Jul 31 2024 7:42AM FVX 5323 - XR ELBOW 2V AP/LAT RT / PROCEDURE REASON: Elbow trauma, no prior imaging * * * * Physician Interpretation * * * * EXAMINATION / TECHNIQUE: XR HUMERUS 2V AP/LAT RT, XR FOREARM 2V AP/LAT RT, XR ELBOW 2V AP/LAT RT PATIENT/TECHNOLOGIST PROVIDED HISTORY: Trauma II, fall, laceration to right elbow CLINICAL INFORMATION ( PROVIDED BY ORDERING CLINICIAN) : Trauma COMPARISON: None RESULT: 2 views obtained of the right humerus, elbow and forearm. No acute fracture or dislocation. Joint spaces are maintained. Mild posterior elbow soft tissue swelling. The elbow joint effusion. No radiopaque foreign body. IMPRESSION: No acute osseous abnormality. Front End Assistant: [employer] Transcribe Date/Time: Jul 31 2024 7:52A Dictated by : RANDLOPH MCCORD DO This examination was interpreted and the report reviewed and electronically signed by: RANDOLPH MCCORD DO on Jul 31 2024 7:57AM EST XR HUMERUS 2V AP/LAT RIGHT Result Date: 07/31/2024 * * *Final Report* * * DATE OF EXAM: Jul 31 2024 7:42AM FVX 5355 - XR HUMERUS 2V AP/LAT RT / PROCEDURE REASON: Trauma * * * * Physician Interpretation * * * * EXAMINATION / TECHNIQUE: XR HUMERUS 2V AP/LAT RT, XR FOREARM 2V AP/LAT RT, XR ELBOW 2V AP/LAT RT PATIENT/TECHNOLOGIST PROVIDED HISTORY: Trauma II, fall, laceration to right elbow CLINICAL INFORMATION ( PROVIDED BY ORDERING CLINICIAN) : Trauma COMPARISON: None RESULT: 2 views obtained of the right humerus, elbow andforearm. No acute fracture or dislocation. Joint spaces are maintained. Mild posterior elbow soft tissue swelling. The elbow joint effusion. No radiopaque foreign body. IMPRESSION: No acute osseous abnormality. Front End Assistant: [employer] Transcribe Date/Time: Jul 31 2024 7:52A Dictated by : RANDOLPH MCCORD DO This examination was interpreted and the report reviewed and electronically signed by: RANDOLPH MCCORD DO on Jul 31 2024 7:57AM EST XR FOREARM GENERAL 2V AP/LAT RIGHT Result Date: 07/31/2024 * * *Final Report* * * DATE OF EXAM: Jul 31 2024 7:42AM [id number] 5342 - XR FOREARM 2V AP/LAT RT / PROCEDURE REASON: Trauma * * * * Physician Interpretation * * * * EXAMINATION / TECHNIQUE: XR HUMERUS 2V AP/LAT RT, XR FOREARM 2V AP/LAT RT, XR ELBOW 2V AP/LAT RT PATIENT/TECHNOLOGIST PROVIDED HISTORY: Trauma II, fall, laceration to right elbow CLINICAL INFORMATION ( PROVIDED BY ORDERING CLINICIAN) : Trauma COMPARISON: None RESULT: 2 views obtained of the right humerus, elbow andforearm. No acute fracture or dislocation. Joint spaces are maintained. Mild posterior elbow soft tissue swelling. The elbow joint effusion. No radiopaque foreign body. IMPRESSION: No acute osseous abnormality. Front End Assistant: [employer] Transcribe Date/Time: Jul 31 2024 7:52A Dictated by : RANDOLPH MCCORD DO This examination was interpreted and the report reviewed and electronically signed by: RANDOLPH MCCORD DO on Jul 31 2024 7:57AM EST XR CHEST 1V FRONTAL PORT Result Date: 07/31/2024 * * *Final Report* * * DATE OF EXAM: Jul 31 2024 6:56AM FVX 5376 - XR CHEST 1V FRONTAL PORT / PROCEDURE REASON: Chest pain, nonspecific * * * * Physician Interpretation * * * * EXAMINATION: XR PELVIS 1V AP, XR CHEST 1V FRONTAL PORT CLINICAL HISTORY: Pelvic trauma (accession [id number]), Chest pain, nonspecific, Polytrauma, blunt, Chest trauma (accession [id number]) Technique:XR PELVIS 1V AP, XR CHEST 1V FRONTAL PORT -- NOT APPLICABLE with 1 views on 1 images Comparison: Chest radiograph from outside facility from earlier the same day. RESULT: Endotracheal tube terminateswithin the mid thoracic trachea. Nasogastric tube tip projects over the stomach. No consolidation. No pleural effusion or pneumothorax. Cardiomediastinal silhouette is within normal limits. Metallic cross projects over the right hemithorax. Ahn catheter projects over the urinary bladder. Bones are demineralized. No acute fracture or traumatic malalignment identified. Pelvic surgical clips. IMPRESSION: * No acute chest process. * No acute osseous abnormality of the pelvis. * Endotracheal tube terminates within the mid thoracic trachea. Front End Assistant: [employer] Transcribe Date/Time: 28190410 7:00A Dictated by : LEEROY ROQUE MD This examination was interpreted and the report reviewed and electronically signed by: LEEROY ROQUE MD on Jul 31 2024 7:03AM EST XR PELVIS 1V AP Result Date: 07/31/2024 * * *Final Report* * * DATE OF EXAM: Jul 31 2024 6:56AM FVX 5239 - XR PELVIS 1V AP / PROCEDURE REASON: Pelvic trauma * * * * Physician Interpretation * * * * EXAMINATION: XR PELVIS 1V AP, XR CHEST 1V FRONTAL PORT CLINICAL HISTORY: Pelvic trauma (accession [id number]), Chest pain, nonspecific, Polytrauma, blunt, Chest trauma (accession [id number]) Technique: XR PELVIS 1V AP, XR CHEST 1V FRONTAL PORT -- NOT APPLICABLE with 1 views on 1 images [facility] RESULT: Endotracheal tube terminates within the mid thoracic trachea. Nasogastric tube tip projects over the stomach. No consolidation. No pleural effusionor pneumothorax. Cardiomediastinal silhouette is within normal limits. Metallic cross projects overthe right hemithorax. Ahn catheter projects over the urinary bladder. Bones are demineralized. Noacute fracture or traumatic malalignment identified. Pelvic surgical clips. IMPRESSION: * No acute chest process. * No acute osseous abnormality of the pelvis. * Endotracheal tube terminates within the mid thoracic trachea. Front End Assistant[facility] Transcribe Date/Time: 28190410 7:00A Dictated by : LEEROY ROQUE MD This examination was interpreted and the report reviewed and electronically signed by: LEEROY ROQUE MD on Jul 31 2024 7:03AM EST CT-CT angio neck IMPORT Result Date: 07/31/2024 Images were obtained outside of [facility] CT-CT angio head IMPORT Result Date: 07/31/2024 Images were obtained outside of [facility] CR-XR chest 1V portable IMPORT Result Date: 07/31/2024 Images were obtained outside of [facility] CT-CT head stroke alert wo con IMPORT Result Date: 07/31/2024 Images were obtained outside of [facility] LABS: Recent Labs 07/31/24 0700 WBC 10.29 HB 7.7* HCT 25.7* PLT 358 INR 1.0 APTT 27.8 NA 131* K 3.9 CHLOR 99 CO2 22 BUN 3* CREAT 0.59* GLUC 130* CA 7.5* Assessment/Plan DIAGNOSES: #SAH #Right temporal abrasion #Right elbow abrasion with hematoma - Admit to SICU - NSGY consult - Repeat head CT - Q 1 neuro checks - Keppra 1 g BID - Syncope work up Medication and Non-Pharmacologic VTE Prophylaxis/Anticoagulants VTE Prophylaxis: Contraindicated SAH TREATMENT/EVALUATION PLANS: Repeat head CT ED DISPOSITION: To ICU FINAL INJURIES: No new injuries were identified after physical examination and review of final radiological reading(s) of all studies. Plan of care discussed with Staff Trauma Surgeon: Dr. Ochoa SIGNATURE: Amadeo Anaya APRN CNP PATIENT NAME: Saray Corbin DATE: July 31, 2024 TIME: 6:44 AM documented in this encounter Procedure Notes * Black Carter APRN.CNP - 08/03/2024 1:54 PM EDTAssociated Order(s): FEEDING TUBE Post-Procedure Diagnose(s): Subarachnoid hemorrhage (HCC) BEDSIDE PROCEDURE NOTE FEEDING TUBE Performed by: Black Carter APRN.MODESTA Authorized by: Black Carter APRN.CNP Where was Patient When this Procedure was Performed: Bedside/Unscheduled Procedure Room Informed Consent Consent Obtained: Verbal [place] Protocol A moment to CARE was completed. SIGN IN Personnel directly involved with the procedure wore the appropriate PPE. Patient/Surrogate Stated/Verified: Patient name, Date of , Relevant allergies and Intended procedure TIME OUT Relevant labs, photos, and/or imaging studies have been reviewed. Pre-Procedure Details: Medications: Local analgesia: lido gel. Procedure Details: Type: Gastric Location: Right Insertion Site: naris A 12 Fr, cm feeding tube was lubricated with a water-soluble lubricant and advanced into the pharynx. Duodenal feeding tube distance advanced: 70. Auscultation suggested the feeding tube reached the stomach. Final Position: Stomach Placement Confirmation: CORTRAK, KUB ordered and auscultation Successful Placement: yes Post-Procedure Details: Patient Tolerance: Patient tolerated the procedure well with no immediate complications Estimated Blood Loss: none Specimens Sent: none SIGN OUT No specimen collected. 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 It should be<200 in the setting of hyponatremia He is off Lexapro His Sodium has improved to 138 He is off salt tabs and urea now The tube feeds will provide extra protein and improve his Sodium level No need for a fluid restriction as he is not taking anything PO currently Daily labs SUBJECTIVE INTERVAL HPI: not speaking MEDICATIONS: Current Facility-Administered Medications Medication Dose Route Frequency ondansetron 4 mg tab(s) (ZOFRAN) 4 mg ORAL q 6 H PRN dextrose 40 % 15 g 15 g ORAL PRN Or glucagon 1 mg injection 1 mg INTRAMUSCULAR PRN Or dextrose 10% iv bolus 12.5 g INTRAVENOUS PRN NaCl 0.9% iv flush bag 20 mL INTRAVENOUS PRN heparin 5,000 Units injection 5,000 Units SUBCUTANEOUS q 12 H insulin lispro injection (rapid acting) (ADMElog) SUBCUTANEOUS q 6 H rosuvastatin 20 mg tab(s) (CRESTOR) 20 mg NASOGASTRIC DAILY folic acid 1 mg tab(s) 1 mg ORAL/FEEDING TUBE DAILY spironolactone 12.5 mg tab(s) (ALDACTONE) 12.5 mg ORAL DAILY thiamine 100 mg tab(s) (VITAMIN B1) 100 mg ORAL/FEEDING TUBE DAILY acetaminophen 650 mg tab(s) (TYLENOL) 650 mg ORAL/FEEDING TUBE q 6 H PRN oxyCODONE IR 2.5 mg tab(s) (ROXICODONE) 2.5 mg ORAL/FEEDING TUBE q 6 H PRN QUEtiapine 50 mg tab(s) (SEROquel) 50 mg ORAL/FEEDING TUBE AT BEDTIME sacubitril-valsartan 24-26 mg 1 tablet (ENTRESTO) 1 tablet ORAL/FEEDING TUBE BID metoprolol tartrate (short acting) 25 mg tab(s) (LOPRESSOR) 25 mg ORAL/FEEDING TUBE q 12 H pantoprazole 40 mg oral liquid (PROTONIX) 40 mg ORAL/FEEDING TUBE DAILY (6 AM) OBJECTIVE PHYSICAL EXAM: Patient Vitals for the past 24 hrs: BP Temp Temp src Pulse Resp SpO2 08/14/24 1542 121/76 36.7 ??C (98.1 ??F) Oral 105 15 95 % 08/14/24 1058 123/73 36.8 ??C (98.2 ??F) Axillary (!) 125 16 94 % 08/14/24 0828 111/73 36.6 ??C (97.9 ??F) Oral (!) 124 16 -- 08/14/24 0534 119/66 -- -- 115 -- -- 08/13/24 2325 131/74 36.4 ??C (97.5 ??F) Oral 110 16 95 % 08/13/24 1941 118/71 36.6 ??C (97.9 ??F) Oral 98 17 95 % Body mass index is 19.69 kg/m??. Date 08/14/24699 - 08/15/24 0659 Shift 7272-3573 3767-6827 9915-9838 24 Hour Total INTAKE PO 0 0 Irrigants 120 120 Shift Total 120 120 OUTPUT Urine 250 250 Emesis 0 0 Shift Total 250 250 Weight (kg) 60.3 60.3 60.3 60.3 Intake/Output 08/10/24 07 - 08/11/24 0659 08/11/24 07 - 08/12/24 0659 08/12/24 07 - 08/13/24 0659 08/13/24 07 - 08/14/24 0659 08/14/24 07 - 08/15/24 0659 Intake (ml) 1275 2073 1380 0 120 Output (ml) 350 -- 200 200 250 Net (ml) 925 2073 1180 -200 -130 GENERAL: no distress LUNGS: Lungs clear to auscultation, Good diaphragmatic excursion CARDIAC: Normal S1 and S2; no rubs, murmurs, or gallops EXTREMITIES:No edema DATA: Diagnostic tests reviewed for today's visit: Most recent labs CBC, Coags, BMP, Mg, Phos Recent Labs 08/14/24 0505 08/13/24 0610 08/12/24 0730 08/12/24 0645 WBC 9.15 7.92 -- 8.98 HB 8.7* 9.0* -- 8.4* HCT 29.2* 30.3* -- 27.4* PLT 881* 877* -- 767* NA 138 139 136 -- K 3.8 3.9 4.4 -- CHLOR 101 101 101 -- CO2 25 23 23 -- BUN 24 21 20 -- CREAT 0.55* 0.50* 0.48* -- GLUC 169* 117* 141* -- CA 9.4 9.7 9.4 -- MG 2.1 1.6* 1.9 -- P 4.0 4.7 4.3 -- Liver Function, Amylase, & Lipase Recent Labs 08/12/24 0730 TPROT 7.8 ALB 3.9 ALT 30 AST 29 ALKPHOS 157* TBILI 0.2 ABGs SIGNATURE: Karlos Dumont MD DATE: August 14, 2024 TIME: 4:35 PM * Lance Escobedo, AUTO CLEANER.KENO WRITER - 08/10/2024 10:30 AM EDT NEUROLOGY CONSULT PROGRESS NOTE SERVICE DATE: 08/10/2024 SERVICE TIME: 1030 Current Attending Provider: Dylon Ochoa MD Subjective Interval History: More alert today, intermittent command following Objective Physical Examination: Neurological: Eye are open spontaneously Tracks examiner Slight right facial droop again noted Intermittent commands Slight R sided weakness New Labs: WBC (k/uL) Date Value 08/10/2024 8.93 08/09/2024 9.32 08/08/2024 9.12 RBC (m/uL) Date Value 08/10/2024 3.88 08/09/2024 3.76 08/08/2024 3.82 Platelet Count (k/uL) Date Value 08/10/2024 691 08/09/2024 615 08/08/2024 624 BUN (mg/dL) Date Value 08/10/2024 18 08/09/2024 13 08/08/2024 10 Creatinine (mg/dL) Date Value 08/10/2024 0.45 08/09/2024 0.51 08/08/2024 0.54 CBC, Coags, BMP, Mg, Phos INR (no units) Date Value 07/31/2024 1.0 APTT (sec) Date Value 07/31/2024 27.8 Sodium (mmol/L) Date Value 08/10/2024 134 08/09/2024 132 08/08/2024 126 Potassium (mmol/L) Date Value 08/10/2024 4.3 08/09/2024 4.0 08/08/2024 4.0 Chloride (mmol/L) Date Value 08/10/2024 98 08/09/2024 98 08/08/2024 94 CO2 (mmol/L) Date Value 08/10/2024 22 08/09/2024 20 08/08/2024 21 Glucose (mg/dL) Date Value 08/10/2024 143 08/09/2024 158 08/08/2024 152 No results found for: ICA Calcium, Total (mg/dL) Date Value 08/10/2024 9.4 08/09/2024 9.0 08/08/2024 8.8 Magnesium (mg/dL) Date Value 08/10/2024 1.6 08/09/2024 1.8 08/08/2024 1.6 Phosphorus (mg/dL) Date Value 08/10/2024 3.3 08/09/2024 3.3 08/09/2024 2.7 Liver Function, Amylase, & Lipase Protein, Total (g/dL) Date Value 07/31/2024 6.1 Albumin (g/dL) Date Value 08/10/2024 3.7 08/09/2024 3.6 08/08/2024 3.7 ALT (U/L) Date Value 07/31/2024 16 AST (U/L) Date Value 07/31/2024 21 Alkaline Phosphatase (U/L) Date Value 07/31/2024 241 Bilirubin, Total (mg/dL) Date Value 07/31/2024 0.2 No results found for: AMYLASE Lipase (U/L) Date Value 07/31/2024 29 No results found for: LACTATE BEM Reading: Impression: This bedside EEG was recorded from 0501 on 08/09/2024 until 0430 on 08/10/2024 and is suggestive of cerebral dysfunction maximum in the left hemisphere and a severe diffuse encephalopathy. No epileptiform discharges or EEG seizures were recorded. Of note EEG is heavily obscured by electrode artifact after 08/09/24 1500 and unreadable from 1600 -1830 DATA: Diagnostic tests reviewed for today's visit: Most recent labs and imaging results. Impression/Recommendations Fall with closed head injury Subarachnoid hemorrhage Subdural hematoma Traumatic brain injury Alcohol abuse history Persistent encephalopathy EEG remains negative for seizure - discontinue Sodium improving More alert today TSH, ammonia, folate, B12 within normal limits Suspect mentation is going to be slow to improve/recover and not able to guess as to how much recovery he will gain after TBI Continue to maintain electrolytes wnl, monitor for signs of infection and treat promptly, etc Follow up in TBI clinic Neuro signing off Staffed with Dr Levin SIGNATURE: Lance Escobedo APRN.CNP PATIENT NAME: Saray Corbin DATE: August 10, 2024 TIME: 1:59 PM * Karlos Dumont MD - 08/09/2024 2:45 PM EDT NEPHROLOGY CONSULT PROGRESS NOTES PATIENT NAME: Saray Corbin SERVICE DATE: 08/09/2024 SERVICE TIME: 2:45 PM CONSULTING SERVICE: NEPHROLOGY ASSESSMENT/PLAN Hyponatremia He 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 It should be<200 in the setting of hyponatremia He can remain on the Lexapro currently as his hyponatremia is mild His Sodium has improved to 132 Cont water flushes to 50cc q8h reduce salt tabs to 1 grams tid reduce Urea to 15 grams daily The tube feeds will provide extra protein and improve his Sodium level No need for a fluid restriction as he is not taking anything PO currently Daily labs SUBJECTIVE INTERVAL HPI: does not speak MEDICATIONS: Current Facility-Administered Medications Medication Dose Route Frequency ondansetron 4 mg tab(s) (ZOFRAN) 4 mg ORAL q 6 H PRN Or ondansetron (PF) 4 mg injection (ZOFRAN) 4 mg INTRAVENOUS q 6 H PRN dextrose 40 % 15 g 15 g ORAL PRN Or glucagon 1 mg injection 1 mg INTRAMUSCULAR PRN Or dextrose 10% iv bolus 12.5 g INTRAVENOUS PRN hydrALAZINE 10 mg injection (APRESOLINE) 10 mg INTRAVENOUS q 6 H PRN NaCl 0.9% iv flush bag 20 mL INTRAVENOUS PRN acetaminophen 650 mg tab(s) (TYLENOL) 650 mg ORAL q 6 H PRN oxyCODONE IR 2.5 mg tab(s) (ROXICODONE) 2.5 mg ORAL q 6 H PRN fentaNYL 50 mcg/mL 25 mcg injection (SUBLIMAZE) 25 mcg INTRAVENOUS q 4 H PRN labetalol 5 mg injection (NORMODYNE) 5 mg INTRAVENOUS q 2 H PRN heparin 5,000 Units injection 5,000 Units SUBCUTANEOUS q 12 H diazePAM 5 mg injection (VALIUM) 5 mg INTRAVENOUS q 2 H PRN Or diazePAM 10 mg injection (VALIUM) 10 mg INTRAVENOUS q 2 H PRN insulin lispro injection (rapid acting) (ADMElog) SUBCUTANEOUS q 6 H thiamine 100 mg tab(s) (VITAMIN B1) 100 mg ORAL DAILY pantoprazole 40 mg injection (PROTONIX) 40 mg INTRAVENOUS DAILY (6 AM) rosuvastatin 20 mg tab(s) (CRESTOR) 20 mg NASOGASTRIC DAILY folic acid 1 mg tab(s) 1 mg ORAL/FEEDING TUBE DAILY QUEtiapine 50 mg tab(s) (SEROquel) 50 mg ORAL AT BEDTIME sacubitril-valsartan 24-26 mg 1 tablet (ENTRESTO) 1 tablet ORAL BID [Order Held by LIP] spironolactone 12.5 mg tab(s) (ALDACTONE) 12.5 mg ORAL DAILY metoprolol tartrate (short acting) 25 mg tab(s) (LOPRESSOR) 25 mg ORAL q 12 H urea 30 g oral powder (URE-NA) 30 g ORAL/FEEDING TUBE DAILY sodium chloride 3 g soluble tab(s) 3 g ORAL/FEEDING TUBE TID cefTRIAXone iv piggyback 1 g in dextrose (iso-osmotic) 50 mL (ROCEPHIN) 1 g INTRAVENOUS q 24 H OBJECTIVE PHYSICAL EXAM: Patient Vitals for the past 24 hrs: BP Temp Temp src Pulse Resp SpO2 08/09/24 1050 144/67 -- Axillary 77 17 97 % 08/09/24 0849 -- -- -- 106 -- -- 08/09/24 0731 142/60 36.7 ??C (98 ??F) Axillary 109 16 95 % 08/08/24 2310 121/58 36.8 ??C (98.2 ??F) Oral 98 16 94 % 08/08/24 1925 153/73 36.3 ??C (97.3 ??F) Axillary 106 20 96 % 08/08/24 1512 137/62 36.3 ??C (97.3 ??F) Axillary 93 19 91 % Body mass index is 19.69 kg/m??. Date 08/09/24 07 - 08/10/24 0659 Shift 3574-1998 8083-8774 4819-8561 24 Hour Total INTAKE Gastric Tube 254 254 Shift Total 254 254 OUTPUT Shift Total Weight (kg) 60.3 60.3 60.3 60.3 Intake/Output 08/05/24 07 - 08/06/24 0659 08/06/24 0700 - 08/07/24 0659 08/07/24 07 - 08/08/24 0659 08/08/24 07 - 08/09/24 0659 08/09/24 0700 - 08/10/24 0659 Intake (ml) 3375 858 -- 2042 254 Output (ml) 823 132 1706 -- -- Net (ml) 2925 558 -1050 2042 254 GENERAL: no distress LUNGS: Lungs clear to auscultation, Good diaphragmatic excursion CARDIAC: Normal S1 and S2; no rubs, murmurs, or gallops EXTREMITIES:No edema DATA: Diagnostic tests reviewed for today's visit: Most recent labs CBC, Coags, BMP, Mg, Phos Recent Labs 08/09/24 1101 08/09/24 0448 08/08/24 1656 08/08/24 0448 08/07/24 1111 08/07/24 1111 08/07/24 0729 WBC -- 9.32 9.12 -- -- -- 11.91* HB -- 8.1* 8.3* -- -- -- 7.8* HCT -- 27.2* 27.7* -- -- -- 25.6* PLT -- 615* 624* -- -- -- 524* NA -- 132* -- 126* -- 125* -- K -- 4.0 -- 4.0 -- 3.7 -- CHLOR -- 98 -- 94* -- 95* -- CO2 -- 20* -- 21* -- 22 -- BUN -- 13 -- 10 -- 19 -- CREAT -- 0.51* -- 0.54* -- 0.54* -- GLUC -- 158* -- 152* -- 126* -- CA -- 9.0 -- 8.8 -- 8.4* -- MG -- 1.8 -- 1.6* -- 1.6* -- P 3.3 2.7 -- 2.5* < > 2.9 -- < > = values in this interval not displayed. Liver Function, Amylase, & Lipase Recent Labs 08/09/24 0448 08/08/24 0448 08/07/24 1111 ALB 3.6* 3.7* 3.4* ABGs SIGNATURE: Karlos Dumont MD DATE: August 09, 2024 TIME: 2:45 PM * Lance Escobedo APRN.[facility] - 08/09/2024 11:55 AM EDTAssociated Order(s): PHYSICIAN CONSULT (AK,AV,EU,FV,HL,IR,SUDHAKAR,MH,MM,MO,MR,SP,UN) CONSULT: NEURO SERVICE SERVICE DATE: 08/09/2024 SERVICE TIME: 1155 REASON FOR CONSULT: Persistently worsening mental status s/p SAH REQUESTING PHYSICIAN: Jenna Vazquez APRN.[facility] PR[facility] PHYSICIAN: DO Jarvis Davidson Mr. Corbin is a 63 year old male past medical history of alcohol use disorder, CHF, CAD who presented on 07/23/2024. Tripped and fell at home, hitting his right evangelical on marble countertop. Low GCS was intubated at the time. Subsequently found to have subarachnoid hemorrhage, left intraventricular hemorrhage, left tentorial subdural hemorrhage. Per notes Best recent exam was 08/05/2024 where patientwas oriented x 2. Was noted to have weakness of the right arm and leg. Mild right facial droop. Every subsequent exam shows him being essentially nonverbal, just grunting, not verbalizing, not following commands. Drowsy lethargic etc. Repeat CT scans have been stable to improved. EEG report 07/31 thr ough 08/02 without seizure. EEG put back on on 08/07/2024 has been on since with no EEG seizures. Patient was on prophylactic Keppra for 1 week. He has had hyponatremia this admission which just now starting to correct today. Apparently fairly heavy binge drinker according to chart review. No alcoholin his system when he first presented for trauma so his last drink was at least 9 to 10 days ago. He had an MRI of the brain with and without contrast on 08/01/2024 which revealed a small posterior left pontine infarct PAST MEDICAL HISTORY Diagnosis Date Alcohol use disorder ARDS (adult respiratory distress syndrome) (HCC) Arthritis Congestive heart failure (HCC) Coronary artery disease Depression GERD (gastroesophageal reflux disease) Iron deficiency anemia Pancreatitis (HCC) Seizure (HCC) PAST SURGICAL HISTORY Procedure Laterality Date LAPAROSCOPY SURG CHOLECYSTECTOMY 10/10/2022 PAST SURGICAL HISTORY OF EGDs with dilation TRACHEOSTOMY FAMILY HISTORY Problem Relation Age of Onset Anesthesia Problems No Family History Blood Clots No Family History Social History Tobacco Use Smoking status: Every Day Current packs/day: 1.00 Types: Cigarettes Smokeless tobacco: Never Tobacco comments: 1.0ppdx since 1986 Vaping Use Vaping status: Never Used Substance Use Topics Alcohol use: Yes Alcohol/week: 8.0 standard drinks of alcohol Types: 8 Cans of beer per week Comment: occ during football games/cook outs Drug use: Never fluconazole (DIFLUCAN) 100 mg tablet, Take 2 (two) tablets by mouth on day 1, then take 1 (one) tablet daily for 13 days. Avoid taking seroquel while taking this medication, then resume seroquel afterwards., Disp: 15 tablet, Rfl: 0 clopidogrel (PLAVIX) 75 mg tablet, Take 75 mg by mouth once daily., Disp: , Rfl: Cyclobenzap and Irritant Cntr Irr2 10 mg kit, 1 % once daily., Disp: , Rfl: dapagliflozin propanediol (FARXIGA) 10 mg tablet, Take 10 mg by mouth daily with breakfast., Disp: , Rfl: escitalopram oxalate (LEXAPRO) 10 mg tablet, Take 30 mg by mouth once daily., Disp: , Rfl: melatonin 10 mg tab, Take 1 tablet by mouth once daily., Disp: , Rfl: metoprolol succinate ER (TOPROL XL) 50 mg 24 hr tablet, Take 50 mg by mouth once daily., Disp: , Rfl: INV NITROGLYCERIN 0.4 MG SUBLINGUAL TABLET ([facility] 23-702), Dissolve 0.4 mg under the tongue one time only. Place tablet under tongue and allow to dissolve; do not chew or break. For Investigational Drug Use Only. PI: Teena Carrillo MD., Disp: , Rfl: pregabalin (LYRICA) 75 mg capsule, Take 75 mg by mouth two times a day., Disp: , Rfl: rosuvastatin (CRESTOR) 20 mg tablet, Take 20 mg by mouth once daily., Disp: , Rfl: sacubitril-valsartan (ENTRESTO) 24-26 mg tablet, Take 1 tablet by mouth two times a day., Disp: , Rfl: sildenafil (VIAGRA) 100 mg tablet, Take 100 mg by mouth once daily as needed., Disp: , Rfl: magnesium chloride (SLOW-MAG ORAL), Take 1 % by mouth as needed., Disp: , Rfl: spironolactone (ALDACTONE) 25 mg tablet, Take 12.5 mg by mouth once daily. Take 0.5 tablets (12.5 mg) by mouth once daily, Disp: , Rfl: tamsulosin (FLOMAX) 0.4 mg, Take 0.4 mg by mouth once daily., Disp: , Rfl: traMADol (ULTRAM) 50 mg tablet, Take 50 mg by mouth every 6 hours as needed for pain., Disp: , Rfl: QUEtiapine (SEROQUEL) 25 mg tablet, 50 mg., Disp: , Rfl: escitalopram oxalate (LEXAPRO) 20 mg tablet, Take 1 tablet by mouth once daily. Oral/ feeding tube,Disp: 30 tablet, Rfl: 0 SUMAtriptan (IMITREX) 50 mg tablet, Take 50 mg by mouth as needed., Disp: , Rfl: pantoprazole DR (PROTONIX) 40 mg tablet, Take 40 mg by mouth once daily., Disp: , Rfl: Current Facility-Administered Medications Medication Dose Route Frequency ondansetron 4 mg tab(s) (ZOFRAN) 4 mg ORAL q 6 H PRN Or ondansetron (PF) 4 mg injection (ZOFRAN) 4 mg INTRAVENOUS q 6 H PRN dextrose 40 % 15 g 15 g ORAL PRN Or glucagon 1 mg injection 1 mg INTRAMUSCULAR PRN Or dextrose 10% iv bolus 12.5 g INTRAVENOUS PRN hydrALAZINE 10 mg injection (APRESOLINE) 10 mg INTRAVENOUS q 6 H PRN NaCl 0.9% iv flush bag 20 mL INTRAVENOUS PRN acetaminophen 650 mg tab(s) (TYLENOL) 650 mg ORAL q 6 H PRN oxyCODONE IR 2.5 mg tab(s) (ROXICODONE) 2.5 mg ORAL q 6 H PRN fentaNYL 50 mcg/mL 25 mcg injection (SUBLIMAZE) 25 mcg INTRAVENOUS q 4 H PRN labetalol 5 mg injection (NORMODYNE) 5 mg INTRAVENOUS q 2 H PRN heparin 5,000 Units injection 5,000 Units SUBCUTANEOUS q 12 H diazePAM 5 mg injection (VALIUM) 5 mg INTRAVENOUS q 2 H PRN Or diazePAM 10 mg injection (VALIUM) 10 mg INTRAVENOUS q 2 H PRN insulin lispro injection (rapid acting) (ADMElog) SUBCUTANEOUS q 6 H thiamine 100 mg tab(s) (VITAMIN B1) 100 mg ORAL DAILY pantoprazole 40 mg injection (PROTONIX) 40 mg INTRAVENOUS DAILY (6 AM) rosuvastatin 20 mg tab(s) (CRESTOR) 20 mg NASOGASTRIC DAILY folic acid 1 mg tab(s) 1 mg ORAL/FEEDING TUBE DAILY QUEtiapine 50 mg tab(s) (SEROquel) 50 mg ORAL AT BEDTIME sacubitril-valsartan 24-26 mg 1 tablet (ENTRESTO) 1 tablet ORAL BID [Order Held by LIP] spironolactone 12.5 mg tab(s) (ALDACTONE) 12.5 mg ORAL DAILY metoprolol tartrate (short acting) 25 mg tab(s) (LOPRESSOR) 25 mg ORAL q 12 H cefTRIAXone iv piggyback 1 g in dextrose (iso-osmotic) 50 mL (ROCEPHIN) 1 g INTRAVENOUS q 24 H sodium chloride 1 g soluble tab(s) 1 g ORAL/FEEDING TUBE TID [START ON 08/10/2024] urea 15 g oral powder (URE-NA) 15 g ORAL/FEEDING TUBE DAILY Allergies As of Date: 07/31/2024 (No Known Allergies) Fully Assessed 07/31/2024 COMPLETE REVIEW OF SYSTEMS: Unable to obtain due to stuporous patient who is nonverbal Objective PHYSICAL EXAM: Physical Exam Performed: Neurological: Opens eyes to voice after repeated attempts No command following Withdraws all 4 extremities from noxious stimuli Only grunts or moans, does not verbalize Tracks examiner with his eyes, no gaze deviation, Slight right facial droop noted BP 137/85 Pulse 108 Temp (Src) 97.8 (Oral) Resp 16 Ht 5' 8.898 (1.75m) Wt 132 lb 15 oz (60.3kg) SpO2 98% BMI 19.69 kg/(m^2). O2 Therapy: Room Air DATA: Diagnostic tests reviewed for today's visit: Most recent labs and imaging results. Impression/Recommendations Fall with closed head injury Subarachnoid hemorrhage Subdural hematoma Traumatic brain injury Alcohol abuse history Persistent encephalopathy EEG has been negative for seizure MRI brain with and without contrast on 08/01/2024 showed small left pontine infarct which would not explain his decreased level of arousal Hyponatremia may be playing a role, just now approaching normal range, we will have to see how he improves over time Continue to maintain/support normal electrolytes Continue to monitor for signs and symptoms of infection and treat abruptly if noted. Abnormal UA yesterday. Pending culture Continue EEG for now. 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 It should be<200 in the setting of hyponatremia He can remain on the Lexapro currently as his hyponatremia is mild His Sodium has only improved to 126 Cont water flushes to 50cc q8h Increase salt tabs to 3 grams tid Increase Urea to 30grams daily The tube feeds will provide extra protein and improve his Sodium level No need for a fluid restriction as he is not taking anything PO currently Daily labs SUBJECTIVE INTERVAL HPI: unable to answer questions. On tube feeds MEDICATIONS: Current Facility-Administered Medications Medication Dose Route Frequency ondansetron 4 mg tab(s) (ZOFRAN) 4 mg ORAL q 6 H PRN Or ondansetron (PF) 4 mg injection (ZOFRAN) 4 mg INTRAVENOUS q 6 H PRN dextrose 40 % 15 g 15 g ORAL PRN Or glucagon 1 mg injection 1 mg INTRAMUSCULAR PRN Or dextrose 10% iv bolus 12.5 g INTRAVENOUS PRN hydrALAZINE 10 mg injection (APRESOLINE) 10 mg INTRAVENOUS q 6 H PRN NaCl 0.9% iv flush bag 20 mL INTRAVENOUS PRN acetaminophen 650 mg tab(s) (TYLENOL) 650 mg ORAL q 6 H PRN oxyCODONE IR 2.5 mg tab(s) (ROXICODONE) 2.5 mg ORAL q 6 H PRN fentaNYL 50 mcg/mL 25 mcg injection (SUBLIMAZE) 25 mcg INTRAVENOUS q 4 H PRN labetalol 5 mg injection (NORMODYNE) 5 mg INTRAVENOUS q 2 H PRN heparin 5,000 Units injection 5,000 Units SUBCUTANEOUS q 12 H diazePAM 5 mg injection (VALIUM) 5 mg INTRAVENOUS q 2 H PRN Or diazePAM 10 mg injection (VALIUM) 10 mg INTRAVENOUS q 2 H PRN insulin lispro injection (rapid acting) (ADMElog) SUBCUTANEOUS q 6 H thiamine 100 mg tab(s) (VITAMIN B1) 100 mg ORAL DAILY pantoprazole 40 mg injection (PROTONIX) 40 mg INTRAVENOUS DAILY (6 AM) rosuvastatin 20 mg tab(s) (CRESTOR) 20 mg NASOGASTRIC DAILY folic acid 1 mg tab(s) 1 mg ORAL/FEEDING TUBE DAILY [Order Held by LIP] escitalopram oxalate 30 mg tab(s) (LEXAPRO) 30 mg ORAL DAILY QUEtiapine 50 mg tab(s) (SEROquel) 50 mg ORAL AT BEDTIME sacubitril-valsartan 24-26 mg 1 tablet (ENTRESTO) 1 tablet ORAL BID [Order Held by LIP] spironolactone 12.5 mg tab(s) (ALDACTONE) 12.5 mg ORAL DAILY metoprolol tartrate (short acting) 25 mg tab(s) (LOPRESSOR) 25 mg ORAL q 12 H [START ON 08/09/2024] urea 30 g oral powder (URE-NA) 30 g ORAL/FEEDING TUBE DAILY sodium chloride 3 g soluble tab(s) 3 g ORAL/FEEDING TUBE TID OBJECTIVE PHYSICAL EXAM: Patient Vitals for the past 24 hrs: BP Temp Temp src Pulse Resp SpO2 08/08/24 1154 132/74 36.6 ??C (97.9 ??F) Axillary 93 18 96 % 08/08/24 0908 -- -- -- 85 19 -- 08/08/24 0900 -- -- -- 85 20 95 % 08/08/24 0818 141/74 36.8 ??C (98.2 ??F) Axillary 104 18 96 % 08/08/24 0001 147/73 37 ??C (98.6 ??F) Oral 96 16 92 % 08/07/24 2047 121/57 37.6 ??C (99.7 ??F) Oral 92 16 95 % 08/07/24 1519 170/88 36.7 ??C (98.1 ??F) Axillary 105 17 97 % Body mass index is 19.69 kg/m??. Intake/Output 08/05/24 07 - 08/06/24 0659 08/06/24 07 - 08/07/24 0659 08/07/24 07 - 08/08/24 0659 Intake (ml) 3375 858 -- Output (ml) 692 946 2506 Net (ml) 2925 558 -1050 GENERAL: no distress LUNGS: Lungs clear to auscultation, Good diaphragmatic excursion CARDIAC: Normal S1 and S2; no rubs, murmurs, or gallops EXTREMITIES:No edema DATA: Diagnostic tests reviewed for today's visit: Most recent labs CBC, Coags, BMP, Mg, Phos Recent Labs 08/08/248 08/07/24 1111 08/07/24 0729 08/06/24 0742 WBC -- -- 11.91* -- HB -- -- 7.8* -- HCT -- -- 25.6* -- PLT -- -- 524* -- NA 126* 125* -- 128* K 4.0 3.7 -- 4.0 CHLOR 94* 95* -- 94* CO2 21* 22 -- 22 BUN 10 19 -- 8* CREAT 0.54* 0.54* -- 0.51* GLUC 152* 126* -- 117* CA 8.8 8.4* -- 8.4* MG 1.6* 1.6* -- 1.5* P 2.5* 2.9 -- 3.2 Liver Function, Amylase, & Lipase Recent Labs 08/08/2444708/07/24 1111 08/06/24 0742 ALB 3.7* 3.4* 3.4* ABGs SIGNATURE: Karlos Dumont MD DATE: August 08, 2024 TIME: 12:16 PM * Karlos Dumont MD - 08/07/2024 1:59 PM EDT NEPHROLOGY CONSULT PROGRESS NOTES PATIENT NAME: Saray Corbin SERVICE DATE: 08/07/2024 SERVICE TIME: 1:59 PM CONSULTING SERVICE: NEPHROLOGY ASSESSMENT/PLAN Hyponatremia He 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 It should be<200 in the setting of hyponatremia He can remain on the Lexapro currently as his hyponatremia is mild Cont water flushes to 50cc q8h Increase salt tabs to 2 grams tid Add Urea 15 grams daily Stop NSS which can actually worsen the hyponatremia The tube feeds will provide extra protein and improve his Sodium level No need for a fluid restriction as he is not taking anything PO currently Daily labs SUBJECTIVE INTERVAL HPI: not answering any questions MEDICATIONS: Current Facility-Administered Medications Medication Dose Route Frequency ondansetron 4 mg tab(s) (ZOFRAN) 4 mg ORAL q 6 H PRN Or ondansetron (PF) 4 mg injection (ZOFRAN) 4 mg INTRAVENOUS q 6 H PRN dextrose 40 % 15 g 15 g ORAL PRN Or glucagon 1 mg injection 1 mg INTRAMUSCULAR PRN Or dextrose 10% iv bolus 12.5 g INTRAVENOUS PRN hydrALAZINE 10 mg injection (APRESOLINE) 10 mg INTRAVENOUS q 6 H PRN NaCl 0.9% iv flush bag 20 mL INTRAVENOUS PRN acetaminophen 650 mg tab(s) (TYLENOL) 650 mg ORAL q 6 H PRN oxyCODONE IR 2.5 mg tab(s) (ROXICODONE) 2.5 mg ORAL q 6 H PRN fentaNYL 50 mcg/mL 25 mcg injection (SUBLIMAZE) 25 mcg INTRAVENOUS q 4 H PRN labetalol 5 mg injection (NORMODYNE) 5 mg INTRAVENOUS q 2 H PRN heparin 5,000 Units injection 5,000 Units SUBCUTANEOUS q 12 H diazePAM 5 mg injection (VALIUM) 5 mg INTRAVENOUS q 2 H PRN Or diazePAM 10 mg injection (VALIUM) 10 mg INTRAVENOUS q 2 H PRN insulin lispro injection (rapid acting) (ADMElog) SUBCUTANEOUS q 6 H thiamine 100 mg injection 100 mg INTRAVENOUS TID [START ON 08/08/2024] thiamine 100 mg tab(s) (VITAMIN B1) 100 mg ORAL DAILY pantoprazole 40 mg injection (PROTONIX) 40 mg INTRAVENOUS DAILY (6 AM) rosuvastatin 20 mg tab(s) (CRESTOR) 20 mg NASOGASTRIC DAILY folic acid 1 mg tab(s) 1 mg ORAL/FEEDING TUBE DAILY escitalopram oxalate 30 mg tab(s) (LEXAPRO) 30 mg ORAL DAILY QUEtiapine 50 mg tab(s) (SEROquel) 50 mg ORAL AT BEDTIME sacubitril-valsartan 24-26 mg 1 tablet (ENTRESTO) 1 tablet ORAL BID [Order Held by [facility]] spironolactone 12.5 mg tab(s) (ALDACTONE) 12.5 mg ORAL DAILY metoprolol tartrate (short acting) 25 mg tab(s) (LOPRESSOR) 25 mg ORAL q 12 H urea 15 g oral powder (URE-NA) 15 g ORAL/FEEDING TUBE DAILY sodium chloride 2 g soluble tab(s) 2 g ORAL/FEEDING TUBE TID OBJECTIVE PHYSICAL EXAM: Patient Vitals for the past 24 hrs: BP Temp Temp src Pulse Resp SpO2 08/07/24 1133 142/76 36.8 ??C (98.3 ??F) Axillary 74 17 97 % 08/07/24 1031 137/76 -- -- 76 -- 95 % 08/07/24 0725 142/71 37.1 ??C (98.8 ??F) Axillary 96 17 94 % 08/06/24 2308 154/82 36.3 ??C (97.3 ??F) Axillary 96 17 94 % 08/06/24 2018 142/67 37.1 ??C (98.8 ??F) Oral 97 18 95 % 08/06/24 1558 138/71 36.4 ??C (97.5 ??F) Oral 90 16 94 % Body mass index is 19.69 kg/m??. Intake/Output 08/03/24 0700 - 08/04/24 0659 08/04/24 0700 - 08/05/24 0659 08/05/24 0700 - 08/06/24 0659 08/06/24 0700 - 08/07/24 0659 Intake (ml) 10 -- 3375 858 Output (ml) -- -- 450 300 Net (ml) 10 -- 2925 558 GENERAL: no distress LUNGS: Lungs clear to auscultation, Good diaphragmatic excursion CARDIAC: Normal S1 and S2; no rubs, murmurs, or gallops EXTREMITIES:No edema DATA: Diagnostic tests reviewed for today's visit: Most recent labs CBC, Coags, BMP, Mg, Phos Recent Labs 08/07/24 1111 08/07/24 0729 08/06/24 0742 08/05/241958 WBC -- 11.91* -- -- HB -- 7.8* -- -- HCT -- 25.6* -- -- PLT -- 524* -- -- NA 125* -- 128* 128* K 3.7 -- 4.0 4.0 CHLOR 95* -- 94* 94* CO2 22 -- 22 22 BUN 19 -- 8* 7* CREAT 0.54* -- 0.51* 0.50* GLUC 126* -- 117* 121* CA 8.4* -- 8.4* 8.4* MG 1.6* -- 1.5* 1.7 P 2.9 -- 3.2 3.1 Liver Function, Amylase, & Lipase Recent Labs 08/07/24 1111 08/06/24 0742 08/05/241958 ALB 3.4* 3.4* 3.3* ABGs SIGNATURE: Karlos Dumont MD DATE: August 07, 2024 TIME: 1:59 PM * Karlos Dumont MD - 08/06/2024 5:18 PM EDTAssociated Order(s): PHYSICIAN CONSULT (AK,AV,EU,FV,HL,IR,SUDHAKAR,MH,MM,MO,MR,SP,UN) Nephrology Consult Note Patient's Name: Saray Corbin Reason for Consult: Hyponatremia Requesting Physician: Oswaldo Turpin DO Chief Complaint: SAH History of Present Ilness: 63 year old male with PMH of CHF, CAD, seizure d/o admitted with complaints of SAH. He was transferred here from an OSH due to a SAH after a fall to get Neurosurgery evaluation. His Sodium has been low at 128 prompting his consult. He is sleepy and unable to provide any history. He is on Lexapro asan outpatient. He is on TFs and not taking food by mouth. PAST MEDICAL HISTORY Diagnosis Date Alcohol use disorder ARDS (adult respiratory distress syndrome) (HCC) Arthritis Congestive heart failure (HCC) Coronary artery disease Depression GERD (gastroesophageal reflux disease) Iron deficiency anemia Pancreatitis (HCC) Seizure (HCC) PAST SURGICAL HISTORY Procedure Laterality Date LAPAROSCOPY SURG CHOLECYSTECTOMY 10/10/2022 PAST SURGICAL HISTORY OF EGDs with dilation TRACHEOSTOMY Medications List: No current facility-administered medications on file prior to encounter. Current Outpatient Medications on File Prior to Encounter Medication Sig fluconazole (DIFLUCAN) 100 mg tablet Take 2 (two) tablets by mouth on day 1, then take 1 (one) tablet daily for 13 days. Avoid taking seroquel while taking this medication, then resume seroquel afterwards. clopidogrel (PLAVIX) 75 mg tablet Take 75 mg by mouth once daily. Cyclobenzap and Irritant Cntr Irr2 10 mg kit 1 % once daily. dapagliflozin propanediol (FARXIGA) 10 mg tablet Take 10 mg by mouth daily with breakfast. escitalopram oxalate (LEXAPRO) 10 mg tablet Take 30 mg by mouth once daily. melatonin 10 mg tab Take 1 tablet by mouth once daily. metoprolol succinate ER (TOPROL XL) 50 mg 24 hr tablet Take 50 mg by mouth once daily. INV NITROGLYCERIN 0.4 MG SUBLINGUAL TABLET ([facility] 23-702) Dissolve 0.4 mg under the tongue one time only. Place tablet under tongue and allow to dissolve; do not chew or break. For Investigational DrugUse Only. PI: Teena Carrillo MD. pregabalin (LYRICA) 75 mg capsule Take 75 mg by mouth two times a day. rosuvastatin (CRESTOR) 20 mg tablet Take 20 mg by mouth once daily. sacubitril-valsartan (ENTRESTO) 24-26 mg tablet Take 1 tablet by mouth two times a day. sildenafil (VIAGRA) 100 mg tablet Take 100 mg by mouth once daily as needed. magnesium chloride (SLOW-MAG ORAL) Take 1 % by mouth as needed. spironolactone (ALDACTONE) 25 mg tablet Take 12.5 mg by mouth once daily. Take 0.5 tablets (12.5 mg) by mouth once daily tamsulosin (FLOMAX) 0.4 mg Take 0.4 mg by mouth once daily. traMADol (ULTRAM) 50 mg tablet Take 50 mg by mouth every 6 hours as needed for pain. QUEtiapine (SEROQUEL) 25 mg tablet 50 mg. escitalopram oxalate (LEXAPRO) 20 mg tablet Take 1 tablet by mouth once daily. Oral/ feeding tube SUMAtriptan (IMITREX) 50 mg tablet Take 50 mg by mouth as needed. pantoprazole DR (PROTONIX) 40 mg tablet Take 40 mg by mouth once daily. Current Facility-Administered Medications Medication Dose Route Frequency ondansetron 4 mg tab(s) (ZOFRAN) 4 mg ORAL q 6 H PRN Or ondansetron (PF) 4 mg injection (ZOFRAN) 4 mg INTRAVENOUS q 6 H PRN levETIRAcetam 1,000 mg injection (KEPPRA) 1,000 mg INTRAVENOUS BID dextrose 40 % 15 g 15 g ORAL PRN Or glucagon 1 mg injection 1 mg INTRAMUSCULAR PRN Or dextrose 10% iv bolus 12.5 g INTRAVENOUS PRN hydrALAZINE 10 mg injection (APRESOLINE) 10 mg INTRAVENOUS q 6 H PRN NaCl 0.9% iv flush bag 20 mL INTRAVENOUS PRN acetaminophen 650 mg tab(s) (TYLENOL) 650 mg ORAL q 6 H PRN oxyCODONE IR 2.5 mg tab(s) (ROXICODONE) 2.5 mg ORAL q 6 H PRN fentaNYL 50 mcg/mL 25 mcg injection (SUBLIMAZE) 25 mcg INTRAVENOUS q 4 H PRN labetalol 5 mg injection (NORMODYNE) 5 mg INTRAVENOUS q 2 H PRN heparin 5,000 Units injection 5,000 Units SUBCUTANEOUS q 12 H diazePAM 5 mg injection (VALIUM) 5 mg INTRAVENOUS q 2 H PRN Or diazePAM 10 mg injection (VALIUM) 10 mg INTRAVENOUS q 2 H PRN insulin lispro injection (rapid acting) (ADMElog) SUBCUTANEOUS q 6 H thiamine 100 mg injection 100 mg INTRAVENOUS TID [START ON 08/08/2024] thiamine 100 mg tab(s) (VITAMIN B1) 100 mg ORAL DAILY pantoprazole 40 mg injection (PROTONIX) 40 mg INTRAVENOUS DAILY (6 AM) rosuvastatin 20 mg tab(s) (CRESTOR) 20 mg NASOGASTRIC DAILY folic acid 1 mg tab(s) 1 mg ORAL/FEEDING TUBE DAILY escitalopram oxalate 30 mg tab(s) (LEXAPRO) 30 mg ORAL DAILY QUEtiapine 50 mg tab(s) (SEROquel) 50 mg ORAL AT BEDTIME sacubitril-valsartan 24-26 mg 1 tablet (ENTRESTO) 1 tablet ORAL BID [Order Held by [facility]] spironolactone 12.5 mg tab(s) (ALDACTONE) 12.5 mg ORAL DAILY metoprolol tartrate (short acting) 25 mg tab(s) (LOPRESSOR) 25 mg ORAL q 12 H sodium chloride 1 g soluble tab(s) 1 g CORPAK TID NaCl 0.9% iv infusion 50 mL/hr INTRAVENOUS CONTINUOUS ALLERGIES No Known Allergies Social History Tobacco Use Smoking status: Every Day Current packs/day: 1.00 Types: Cigarettes Smokeless tobacco: Never Tobacco comments: 1.0ppdx since 1986 Vaping Use Vaping status: Never Used Substance Use Topics Alcohol use: Yes Alcohol/week: 8.0 standard drinks of alcohol Types: 8 Cans of beer per week Comment: occ during football games/cook outs Drug use: Never FAMILY HISTORY Problem Relation Age of Onset Anesthesia Problems No Family History Blood Clots No Family History Review of Systems: See above in HPI. Vitals: 08/06/24 0535 08/06/24 0830 08/06/24 1210 08/06/24 1558 BP: 131/77 133/69 141/76 138/71 Pulse: 95 92 83 90 Resp: 16 16 17 16 Temp: 36.4 ??C (97.5 ??F) 36.4 ??C (97.5 ??F) 37.1 ??C (98.8 ??F) 36.4 ??C (97.5 ??F) TempSrc: Axillary Oral Oral Oral SpO2: 92% 95% 95% 94% Weight: Height: Intake/Output: Intake/Output Summary (Last 24 hours) at 08/06/2024 1718 Last data filed at 08/06/2024 1228 Gross per 24 hour Intake 3290 ml Output 300 ml Net 2990 ml Physical Exam: GENERAL: Alert, no distress, cooperative SKIN: Skin color, texture, turgor normal. No rashes or lesions. OROPHARYNX: Lips, mucosa, and tongue normal. Teeth and gums normal. Oropharynx normal. NECK: Supple LUNGS: Lungs clear to auscultation, Good diaphragmatic excursion CARDIAC: Normal S1 and S2; no rubs, murmurs, or gallops ABDOMEN: Abdomen soft, non-tender, BS normal, No masses or organomegaly EXTREMITIES: Extremities normal, no deformities, edema, clubbing or skin discoloration. Good capillary refill. Labs: Recent Labs 08/06/24 0742 08/05/24 1959 08/05/24 0619 08/04/24 1740 08/04/24 0523 08/03/24 0420 08/02/24 0500 08/01/24 0442 CREAT 0.51* 0.50* 0.50* 0.47* 0.44* 0.50* 0.49* 0.53* BUN 8* 7* 7* 5* 4* 5* 3* 3* NA 128* 128* 129* 132* 133* 134* 133* 135* K 4.0 4.0 3.8 3.8 3.2* 3.7 4.3 3.2* CHLOR 94* 94* 96* 96* 96* 100 97* 99 CO2 22 22 22 23 24 22 17* 22 GLUC 117* 121* 124* 123* 122* 113* 102* 91 CA 8.4* 8.4* 8.5 8.4* 8.8 8.3* 8.0* 8.0* MG 1.5* 1.7 1.6* 2.0 1.6* 1.7 1.9 1.0* P 3.2 3.1 3.1 2.5* 2.9 2.5* -- 2.9 ALB 3.4* 3.3* 3.1* 3.4* -- -- -- -- WBC -- -- -- -- 9.17 9.22 10.49 9.39 HB -- -- -- -- 7.6* 7.4* 8.5* 7.2* MCV -- -- -- -- 72.8* 73.4* 74.2* 73.7* PLT -- -- -- -- 416* 384 374 320 No results for input(s): BUNPR , BUNPO in the last 168 hours. No results for input(s): PH , PCO2 , PO2 , LACT in the last 168 hours. 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 It should be<200 in the setting of hyponatremia He can remain on the Lexapro currently as his hyponatremia is mild Will reduce water flushes to 50cc q8h Agree with salt tabs The tube feeds will provide extra protein and improve his Sodium level No need for a fluid restriction as he is not taking anything PO currently Daily labs Thank you for allowing us to participate in care of QuentinMeek Corbin, please call with any questions Karlos Dumont MD [facility] [place] 5:18 PM 08/06/2024 * Pennie Fraire PA-C - 08/06/2024 9:36 AM EDT PROGRESS NOTE NEUROSURGERY SERVICE DATE: 08/06/2024 SERVICE TIME: 9:25 AM Subjective INTERVAL HPI Paged by trauma team that patient had altered mental status and repeat STAT CT brain was ordered. Patient seen resting in bed comfortably. He is able to answer some questions and follow some commands but needs constant reorientation. He is not oriented to time and place. He reported continued headache, nausea, and answered yes to pain in his extremities but could not specify where. He is able to wiggle toes and squeeze hands bilaterally, left hand greater than right. Current Facility-Administered Medications Medication Dose Route Frequency ondansetron 4 mg tab(s) (ZOFRAN) 4 mg ORAL q 6 H PRN Or ondansetron (PF) 4 mg injection (ZOFRAN) 4 mg INTRAVENOUS q 6 H PRN levETIRAcetam 1,000 mg injection (KEPPRA) 1,000 mg INTRAVENOUS BID dextrose 40 % 15 g 15 g ORAL PRN Or glucagon 1 mg injection 1 mg INTRAMUSCULAR PRN Or dextrose 10% iv bolus 12.5 g INTRAVENOUS PRN hydrALAZINE 10 mg injection (APRESOLINE) 10 mg INTRAVENOUS q 6 H PRN NaCl 0.9% iv flush bag 20 mL INTRAVENOUS PRN acetaminophen 650 mg tab(s) (TYLENOL) 650 mg ORAL q 6 H PRN oxyCODONE IR 2.5 mg tab(s) (ROXICODONE) 2.5 mg ORAL q 6 H PRN fentaNYL 50 mcg/mL 25 mcg injection (SUBLIMAZE) 25 mcg INTRAVENOUS q 4 H PRN labetalol 5 mg injection (NORMODYNE) 5 mg INTRAVENOUS q 2 H PRN heparin 5,000 Units injection 5,000 Units SUBCUTANEOUS q 12 H diazePAM 5 mg injection (VALIUM) 5 mg INTRAVENOUS q 2 H PRN Or diazePAM 10 mg injection (VALIUM) 10 mg INTRAVENOUS q 2 H PRN insulin lispro injection (rapid acting) (ADMElog) SUBCUTANEOUS q 6 H thiamine 100 mg injection 100 mg INTRAVENOUS TID [START ON 08/08/2024] thiamine 100 mg tab(s) (VITAMIN B1) 100 mg ORAL DAILY pantoprazole 40 mg injection (PROTONIX) 40 mg INTRAVENOUS DAILY (6 AM) rosuvastatin 20 mg tab(s) (CRESTOR) 20 mg NASOGASTRIC DAILY folic acid 1 mg tab(s) 1 mg ORAL/FEEDING TUBE DAILY escitalopram oxalate 30 mg tab(s) (LEXAPRO) 30 mg ORAL DAILY QUEtiapine 50 mg tab(s) (SEROquel) 50 mg ORAL AT BEDTIME sacubitril-valsartan 24-26 mg 1 tablet (ENTRESTO) 1 tablet ORAL BID [Order Held by [facility]] spironolactone 12.5 mg tab(s) (ALDACTONE) 12.5 mg ORAL DAILY metoprolol tartrate (short acting) 25 mg tab(s) (LOPRESSOR) 25 mg ORAL q 12 H sodium chloride 1 g soluble tab(s) 1 g CORPAK TID magnesium sulfate iv piggyback in sterile water 2 g 50 mL 2 g INTRAVENOUS ONCE Objective Alert, Oriented to Person, NOT to Place, Time EOMI PERRL, pupils 4mm bilaterally Face Symmetric Tongue Midline FERNANDO Unable to assess drift Able to wiggle toes and perform bilateral handgrip L HG 4+/5, R HG 4-/5 Unable to obtain full strength exam- able to move all extremities spontaneously VITAL SIGNS 24 HOUR REVIEW: Patient Vitals for the past 24 hrs: BP Temp Temp src Pulse Resp SpO2 08/06/24 0830 133/69 36.4 ??C (97.5 ??F) Oral 92 16 95 % 08/06/24 0535 131/77 36.4 ??C (97.5 ??F) Axillary 95 16 92 % 08/05/24 2337 142/54 36.5 ??C (97.7 ??F) Oral 78 16 96 % 08/05/24 2024 140/68 36.3 ??C (97.3 ??F) Axillary 84 16 94 % 08/05/24 1554 146/74 36.4 ??C (97.5 ??F) Axillary 88 16 95 % 08/05/24 1123 134/75 36.5 ??C (97.7 ??F) Axillary 73 18 97 % LABS: Recent Labs 08/06/24 0742 08/05/24 1959 08/05/24 0619 08/04/24 1740 08/04/24 0523 WBC -- -- -- -- 9.17 HB -- -- -- -- 7.6* HCT -- -- -- -- 25.4* PLT -- -- -- -- 416* NA 128* 128* 129* < > 133* K 4.0 4.0 3.8 < > 3.2* CHLOR 94* 94* 96* < > 96* CO2 22 22 22 < > 24 BUN 8* 7* 7* < > 4* CREAT 0.51* 0.50* 0.50* < > 0.44* GLUC 117* 121* 124* < > 122* CA 8.4* 8.4* 8.5 < > 8.8 MG 1.5* 1.7 1.6* < > 1.6* P 3.2 3.1 3.1 < > 2.9 < > = values in this interval not displayed. DATA: Diagnostic tests reviewed for today's visit: Most recent labs and imaging results. Assessment/Plan Principal Problem: Subarachnoid hemorrhage (HCC) (POA: Yes) Assessment & Plan: -STAT CT brain pending, further recommendations pending results -Continue neurochecks UPDATE 2:30 PM: CT brain repeated, reviewed by Dr. Rios, bleed is stable. No acute neurosurgical intervention Rule out seizures and metabolic causes for AMS Discussed with Dr. Rios Neurosurgery will sign off at this time. Please call with any questions or changes. Malnutrition Diagnosis supported by Registered Dietitian:Severe Protein-Calorie Malnutrition Based on: Subcutaneous Fat Loss, Muscle Loss, Decline in Functional Status Assessment: I have reviewed the result of the malnutrition assessment and plan and agree Plan: Diet, Enteral Nutrition, Medications, Refeeding Risk Management, Labs Medication and Non-Pharmacologic VTE Prophylaxis/Anticoagulants Anticoagulant & Antiplatelet Medications (From admission, onward) Start Dose Route Frequency Last Action Ordered Stop 08/02/24 1030 heparin 5,000 Units injection 5,000 Units SQ EVERY 12 HOURS Given, 08/05 2136 08/02/24 1024 -- 08/02/24 0815 activity - mobilize patient ([place]) 07/31/24 1200 vte pharmacologic prophylaxis contraindicated ([place]) 07/31/24 1200 pneumatic compression sleeve(s) (wy,az) VTE Prophylaxis: VTE prophylaxis appropriate SIGNATURE: Pennie Fraire PA-C PATIENT NAME: Saray Corbin DATE: August 06, 2024 TIME: 9:36 AM * Bety Wiley PA-C - 08/05/2024 1:44 PM EDT PROGRESS NOTE NEUROSURGERY SERVICE DATE: 08/05/2024 SERVICE TIME: 9:40 AM Subjective INTERVAL HPI Patient seen resting comfortably in bed. Continues to endorse intermittent headaches throughout theday. Denies any worsening headache, nausea, vomiting, vision or speech changes, drowsiness, lightheadedness, or dizziness. Current Facility-Administered Medications Medication Dose Route Frequency ondansetron 4 mg tab(s) (ZOFRAN) 4 mg ORAL q 6 H PRN Or ondansetron (PF) 4 mg injection (ZOFRAN) 4 mg INTRAVENOUS q 6 H PRN levETIRAcetam 1,000 mg injection (KEPPRA) 1,000 mg INTRAVENOUS BID dextrose 40 % 15 g 15 g ORAL PRN Or glucagon 1 mg injection 1 mg INTRAMUSCULAR PRN Or dextrose 10% iv bolus 12.5 g INTRAVENOUS PRN hydrALAZINE 10 mg injection (APRESOLINE) 10 mg INTRAVENOUS q 6 H PRN NaCl 0.9% iv flush bag 20 mL INTRAVENOUS PRN acetaminophen 650 mg tab(s) (TYLENOL) 650 mg ORAL q 6 H PRN oxyCODONE IR 2.5 mg tab(s) (ROXICODONE) 2.5 mg ORAL q 6 H PRN fentaNYL 50 mcg/mL 25 mcg injection (SUBLIMAZE) 25 mcg INTRAVENOUS q 4 H PRN labetalol 5 mg injection (NORMODYNE) 5 mg INTRAVENOUS q 2 H PRN heparin 5,000 Units injection 5,000 Units SUBCUTANEOUS q 12 H diazePAM 5 mg injection (VALIUM) 5 mg INTRAVENOUS q 2 H PRN Or diazePAM 10 mg injection (VALIUM) 10 mg INTRAVENOUS q 2 H PRN insulin lispro injection (rapid acting) (ADMElog) SUBCUTANEOUS q 6 H thiamine 100 mg injection 100 mg INTRAVENOUS TID [START ON 08/08/2024] thiamine 100 mg tab(s) (VITAMIN B1) 100 mg ORAL DAILY pantoprazole 40 mg injection (PROTONIX) 40 mg INTRAVENOUS DAILY (6 AM) rosuvastatin 20 mg tab(s) (CRESTOR) 20 mg NASOGASTRIC DAILY folic acid 1 mg tab(s) 1 mg ORAL/FEEDING TUBE DAILY escitalopram oxalate 30 mg tab(s) (LEXAPRO) 30 mg ORAL DAILY QUEtiapine 50 mg tab(s) (SEROquel) 50 mg ORAL AT BEDTIME sacubitril-valsartan 24-26 mg 1 tablet (ENTRESTO) 1 tablet ORAL BID spironolactone 12.5 mg tab(s) (ALDACTONE) 12.5 mg ORAL DAILY metoprolol tartrate (short acting) 25 mg tab(s) (LOPRESSOR) 25 mg ORAL q 12 H sodium chloride 1 g soluble tab(s) 1 g CORPAK TID Objective Alert, Oriented to Person, Place, Time EOMI PERRL Antigravity in all extremities Face Symmetric Tongue Midline FERNANDO No Drift VITAL SIGNS 24 HOUR REVIEW: Patient Vitals for the past 24 hrs: BP Temp Temp src Pulse Resp SpO2 08/05/24 1123 134/75 36.5 ??C (97.7 ??F) Axillary 73 18 97 % 08/05/24 0914 144/71 36.4 ??C (97.5 ??F) Axillary 82 18 98 % 08/05/24 0006 142/73 37 ??C (98.6 ??F) Oral 91 16 96 % 08/04/24 2033 136/70 36.4 ??C (97.5 ??F) Axillary 98 16 94 % 08/04/24 1614 136/75 36.3 ??C (97.3 ??F) Axillary 110 17 99 % LABS: Recent Labs 08/05/24 0619 08/04/24 1740 08/04/24 0523 08/03/24 0420 WBC -- -- 9.17 9.22 HB -- -- 7.6* 7.4* HCT -- -- 25.4* 24.8* PLT -- -- 416* 384 NA 129* 132* 133* 134* K 3.8 3.8 3.2* 3.7 CHLOR 96* 96* 96* 100 CO2 22 23 24 22 BUN 7* 5* 4* 5* CREAT 0.50* 0.47* 0.44* 0.50* GLUC 124* 123* 122* 113* CA 8.5 8.4* 8.8 8.3* MG 1.6* 2.0 1.6* 1.7 P 3.1 2.5* 2.9 2.5* DATA: Diagnostic tests reviewed for today's visit: Most recent labs and imaging results. Assessment/Plan Principal Problem: Subarachnoid hemorrhage (HCC) (POA: Yes) - No acute neurosurgical intervention - STAT CT brain with any changes to neurological status - Follow up scheduled in our office with repeat CT Brain completed prior Please call with any changes or questions. Neurosurgery will sign off at this time. Please call with any questions or changes. Discussed with Dr. Rios Medication and Non-Pharmacologic VTE Prophylaxis/Anticoagulants Anticoagulant & Antiplatelet Medications (From admission, onward) Start Dose Route Frequency Last Action Ordered Stop 08/02/24 1030 heparin 5,000 Units injection 5,000 Units SQ EVERY 12 HOURS Given, 08/05 1015 08/02/24 1024 -- 08/02/24 0815 activity - mobilize [place] ([place] 07/31/24 1200 vte pharmacologic prophylaxis contraindicated ([place] 07/31/24 1200 pneumatic compression sleeve(s) ([place]) VTE Prophylaxis: VTE prophylaxis appropriate SIGNATURE: Bety Wiley PA-C PATIENT NAME: Saray Corbin DATE: August 05, 2024 TIME: 1:44 PM * Padmini Mccain PA-C - 08/03/2024 11:23 AM EDT PROGRESS NOTE NEUROSURGERY SERVICE DATE: 08/03/2024 SERVICE TIME: 10:30 AM Subjective INTERVAL HPI Mr. Corbin is resting in bed this morning. He is alert and following commands. Current Facility-Administered Medications Medication Dose Route Frequency ondansetron 4 mg tab(s) (ZOFRAN) 4 mg ORAL q 6 H PRN Or ondansetron (PF) 4 mg injection (ZOFRAN) 4 mg INTRAVENOUS q 6 H PRN levETIRAcetam 1,000 mg injection (KEPPRA) 1,000 mg INTRAVENOUS BID dextrose 40 % 15 g 15 g ORAL PRN Or glucagon 1 mg injection 1 mg INTRAMUSCULAR PRN Or dextrose 10% iv bolus 12.5 g INTRAVENOUS PRN sodium chloride 0.9 % (flush) 2-10 mL (BD POSIFLUSH) 2-10 mL INTRAVENOUS DIRECTED PRN And perflutren lipid microspheres 1.1 mg/mL 1.3 mL injection (DEFINITY) 1.3 mL INTRAVENOUS DIRECTED PRN hydrALAZINE 10 mg injection (APRESOLINE) 10 mg INTRAVENOUS q 6 H PRN NaCl 0.9% iv flush bag 20 mL INTRAVENOUS PRN acetaminophen 650 mg tab(s) (TYLENOL) 650 mg ORAL q 6 H PRN oxyCODONE IR 2.5 mg tab(s) (ROXICODONE) 2.5 mg ORAL q 6 H PRN fentaNYL 50 mcg/mL 25 mcg injection (SUBLIMAZE) 25 mcg INTRAVENOUS q 4 H PRN [Order Held by [facility]] tamsulosin 0.4 mg cap(s) (FLOMAX) 0.4 mg ORAL DAILY [Order Held by [facility]] QUEtiapine 25 mg tab(s) (SEROquel) 25 mg ORAL AT BEDTIME [Order Held by [facility]] escitalopram oxalate 30 mg tab(s) (LEXAPRO) 30 mg ORAL DAILY [Order Held by [facility]] rosuvastatin 20 mg tab(s) (CRESTOR) 20 mg ORAL DAILY labetalol 5 mg injection (NORMODYNE) 5 mg INTRAVENOUS q 2 H PRN heparin 5,000 Units injection 5,000 Units SUBCUTANEOUS q 12 H diazePAM 5 mg injection (VALIUM) 5 mg INTRAVENOUS q 2 H PRN Or diazePAM 10 mg injection (VALIUM) 10 mg INTRAVENOUS q 2 H PRN insulin lispro injection (rapid acting) (ADMElog) SUBCUTANEOUS q 6 H thiamine 100 mg injection 100 mg INTRAVENOUS TID [START ON 08/08/2024] thiamine 100 mg tab(s) (VITAMIN B1) 100 mg ORAL DAILY pantoprazole 40 mg injection (PROTONIX) 40 mg INTRAVENOUS DAILY (6 AM) NaCl 0.9% iv infusion 50 mL/hr INTRAVENOUS CONTINUOUS Objective Alert, Oriented to Person and Place EOMI PERRL Mild right-sided facial droop, will not smile on exam Does not fully stick tongue out FERNANDO No Drift Strength is 5/5 in all extremities except 4+/5 right biceps and triceps No drift VITAL SIGNS 24 HOUR REVIEW: Patient Vitals for the past 24 hrs: BP Temp Temp src Pulse Resp SpO2 08/03/24 0851 157/75 -- -- 92 -- -- 08/03/24 0731 158/78 36.5 ??C (97.7 ??F) Oral 85 18 98 % 08/03/24 0404 152/69 36.4 ??C (97.5 ??F) Axillary 96 16 100 % 08/02/24 2355 141/66 36.7 ??C (98.1 ??F) Oral 102 18 100 % 08/02/24 1958 150/75 37.1 ??C (98.8 ??F) Axillary 106 16 100 % 08/02/24 1612 145/69 36.3 ??C (97.3 ??F) Oral 105 22 99 % 08/02/24 1300 130/72 -- -- 102 23 100 % 08/02/24 1252 148/71 -- -- 100 24 100 % 08/02/24 1205 -- (!) 38 ??C (100.4 ??F) Oral -- -- -- 08/02/24 1200 148/71 -- -- 107 22 100 % LABS: Recent Labs 08/03/24 0420 08/02/24 0500 08/01/24 0442 WBC 9.22 10.49 9.39 HB 7.4* 8.5* 7.2* HCT 24.8* 28.7* 23.8* PLT 384 374 320 NA 134* 133* 135* K 3.7 4.3 3.2* CHLOR 100 97* 99 CO2 22 17* 22 BUN 5* 3* 3* CREAT 0.50* 0.49* 0.53* GLUC 113* 102* 91 CA 8.3* 8.0* 8.0* MG 1.7 1.9 1.0* P -- -- 2.9 DATA: Diagnostic tests reviewed for today's visit: Most recent labs and imaging results. Assessment/Plan Principal Problem: Subarachnoid hemorrhage (HCC) (POA: Yes) - STAT CT brain with change in neurologic status - Continue q4h neuro checks - Okay for DVT chemoprophylaxis - Hold AC, AP - SBP < 140 Please call with questions or changes. Resolved Problems: * No resolved hospital problems. * Medication and Non-Pharmacologic VTE Prophylaxis/Anticoagulants Anticoagulant & Antiplatelet Medications (From admission, onward) Start Dose Route Frequency Last Action Ordered Stop 08/02/24 1030 heparin 5,000 Units injection 5,000 Units SQ EVERY 12 HOURS Given, 08/03 0735 08/02/24 1024 -- 08/02/24 0815 activity - mobilize patient ([place]) 07/31/24 1200 vte pharmacologic prophylaxis contraindicated (wy,az) 07/31/24 1200 pneumatic compression sleeve(s) (wy,az) VTE Prophylaxis: VTE prophylaxis appropriate SIGNATURE: Padmini Mccain PA-C PATIENT NAME: Saray Corbin DATE: August 03, 2024 TIME: 11:23 AM * Padmini Mccain PA-C - 08/02/2024 10:20 AM EDT PROGRESS NOTE NEUROSURGERY SERVICE DATE: 08/02/2024 SERVICE TIME: 9:10 AM Subjective INTERVAL HPI Mr. Corbin is awake and comfortable in bed this morning. He denies headache, dizziness, vision changes, nausea, vomiting. He reports he does have some numbness or tingling in the extremities but is unable to localize where this is. MRI Brain was competed showing small focus of diffusion restriction. Current Facility-Administered Medications Medication Dose Route Frequency ondansetron 4 mg tab(s) (ZOFRAN) 4 mg ORAL q 6 H PRN Or ondansetron (PF) 4 mg injection (ZOFRAN) 4 mg INTRAVENOUS q 6 H PRN levETIRAcetam 1,000 mg injection (KEPPRA) 1,000 mg INTRAVENOUS BID dextrose 40 % 15 g 15 g ORAL PRN Or glucagon 1 mg injection 1 mg INTRAMUSCULAR PRN Or dextrose 10% iv bolus 12.5 g INTRAVENOUS PRN sodium chloride 0.9 % (flush) 2-10 mL (BD POSIFLUSH) 2-10 mL INTRAVENOUS DIRECTED PRN And perflutren lipid microspheres 1.1 mg/mL 1.3 mL injection (DEFINITY) 1.3 mL INTRAVENOUS DIRECTED PRN hydrALAZINE 10 mg injection (APRESOLINE) 10 mg INTRAVENOUS q 6 H PRN NaCl 0.9% iv flush bag 20 mL INTRAVENOUS PRN NaCl 0.9% iv infusion 50 mL/hr INTRAVENOUS CONTINUOUS iv contrast (radiology procedure) INTRAVENOUS DIRECTED PRN acetaminophen 650 mg tab(s) (TYLENOL) 650 mg ORAL q 6 H PRN oxyCODONE IR 2.5 mg tab(s) (ROXICODONE) 2.5 mg ORAL q 6 H PRN fentaNYL 50 mcg/mL 25 mcg injection (SUBLIMAZE) 25 mcg INTRAVENOUS q 4 H PRN tamsulosin 0.4 mg cap(s) (FLOMAX) 0.4 mg ORAL DAILY QUEtiapine 25 mg tab(s) (SEROquel) 25 mg ORAL AT BEDTIME escitalopram oxalate 30 mg tab(s) (LEXAPRO) 30 mg ORAL DAILY pantoprazole [address] 40 mg tab(s) (PROTONIX) 40 mg ORAL DAILY rosuvastatin 20 mg tab(s) (CRESTOR) 20 mg ORAL DAILY insulin lispro injection (rapid acting) (ADMElog) SUBCUTANEOUS q 6 H thiamine 200 mg injection 200 mg INTRAVENOUS q 8 H Followed by [START ON 08/04/2024] thiamine 100 mg tab(s) (VITAMIN B1) 100 mg ORAL/FEEDING TUBE TID PHENobarbital 32.5 mg injection 32.5 mg INTRAVENOUS q 12 H Followed by [START ON 08/04/2024] PHENobarbital 32.5 mg injection 32.5 mg INTRAVENOUS q 24 H Objective Alert, Oriented to Person and Place EOMI PERRL Mild right-sided facial droop Does not fully stick tongue out FERNANDO No Drift Strength is 5/5 in all extremities No drift VITAL SIGNS 24 HOUR REVIEW: Patient Vitals for the past 24 hrs: BP Temp Temp src Pulse Resp SpO2 Weight 08/02/24 0802 -- 37.1 ??C (98.8 ??F) Oral -- -- -- -- 08/02/24 0623 139/62 -- -- 111 15 97 % -- 08/02/24 0608 149/79 -- -- 115 22 97 % -- 08/02/24 0545 -- -- -- -- -- -- 60.3 kg (132 lb 15 oz) 08/02/24 0500 146/74 -- -- 109 (!) 32 97 % -- 08/02/24 0430 139/68 -- -- 117 25 99 % -- 08/02/24 0400 137/64 36.9 ??C (98.4 ??F) Oral 117 28 99 % -- 08/02/24 0300 144/74 -- -- 110 27 96 % -- 08/02/24 0230 127/73 -- -- 112 29 97 % -- 08/02/24 0130 133/67 -- -- 112 21 96 % -- 08/02/24 0100 146/84 -- -- 111 22 97 % -- 08/02/24 0000 126/76 36.7 ??C (98 ??F) Axillary 109 30 99 % -- 08/01/24 2300 111/59 -- -- (!) 128 27 100 % -- 08/01/24 2230 126/73 -- -- 116 21 98 % -- 08/01/24 2200 127/73 -- -- 102 17 98 % -- 08/01/24 2145 135/71 -- -- 96 20 98 % -- 08/01/242009 -- 37.1 ??C (98.7 ??F) Axillary -- -- -- -- 08/01/24 2000 157/91 37.1 ??C (98.8 ??F) Axillary 105 18 96 % -- 08/01/24 1915 115/64 -- -- 105 27 98 % -- 08/01/24 1800 150/76 -- -- 110 25 98 % -- 08/01/24 1711 144/79 -- -- 100 15 99 % -- 08/01/24 1700 144/79 -- -- 96 29 98 % -- 08/01/24 1600 116/93 36.6 ??C (97.9 ??F) Oral 103 23 97 % -- 08/01/24 1500 132/79 -- -- 64 18 97 % -- 08/01/24 1400 143/81 -- -- 108 23 97 % -- 08/01/24 1300 135/58 -- -- 78 14 98 % -- 08/01/24 1200 127/63 36.5 ??C (97.7 ??F) Oral 113 (!) 32 96 % -- 08/01/24 1137 115/73 -- -- 111 21 98 % -- 08/01/24 1100 134/69 -- -- 105 15 100 % -- LABS: Recent Labs 08/02/24 0500 08/01/24 0442 07/31/24 0700 WBC 10.49 9.39 10.29 HB 8.5* 7.2* 7.7* HCT 28.7* 23.8* 25.7* PLT 374 320 358 INR -- -- 1.0 APTT -- -- 27.8 NA 133* 135* 131* K 4.3 3.2* 3.9 CHLOR 97* 99 99 CO2 17* 22 22 BUN 3* 3* 3* CREAT 0.49* 0.53* 0.59* GLUC 102* 91 130* CA 8.0* 8.0* 7.5* MG 1.9 1.0* -- P -- 2.9 -- DATA: Diagnostic tests reviewed for today's visit: Most recent labs and imaging results. Assessment/Plan Principal Problem: Subarachnoid hemorrhage (HCC) (POA: Yes) - STAT CT brain with change in neurologic status - MRI brain reviewed, will discuss with Dr. Mott - Continue q4h neuro checks - Okay for DVT chemoprophylaxis tomorrow - Hold AC, AP - SBP < 140 - No seizure activity noted on BEM, will discuss with Dr. Mott about discontinuing Please call with questions or changes. Resolved Problems: * No resolved hospital problems. * Medication and Non-Pharmacologic VTE Prophylaxis/Anticoagulants 08/02/24 0815 activity - mobilize patient ([place]) 07/31/24 1200 vte pharmacologic prophylaxis contraindicated ([place]) 07/31/24 1200 pneumatic compression sleeve(s) ([place]) VTE Prophylaxis: VTE prophylaxis appropriate SIGNATURE: Padmini Mccain PA-C PATIENT NAME: Saray Corbin DATE: August 02, 2024 TIME: 10:20 AM * Jacquelyn Dsouza PA-C - 08/01/2024 12:01 PM EDT PROGRESS NOTE NEUROSURGERY SERVICE DATE: 08/01/2024 SERVICE TIME: 10:45AM Subjective INTERVAL HPI Patient is awake in the ICU, he is drowsy but participates with move of the exam. Endorses a headache and some dizziness but otherwise no new complaints. Current Facility-Administered Medications Medication Dose Route Frequency fentaNYL 50 mcg/mL 25-50 mcg injection (SUBLIMAZE) 25-50 mcg INTRAVENOUS q 5 MIN PRN ondansetron 4 mg tab(s) (ZOFRAN) 4 mg ORAL q 6 H PRN Or ondansetron (PF) 4 mg injection (ZOFRAN) 4 mg INTRAVENOUS q 6 H PRN levETIRAcetam 1,000 mg injection (KEPPRA) 1,000 mg INTRAVENOUS BID pantoprazole 40 mg injection (PROTONIX) 40 mg INTRAVENOUS DAILY (6 AM) dextrose 40 % 15 g 15 g ORAL PRN Or glucagon 1 mg injection 1 mg INTRAMUSCULAR PRN Or dextrose 10% iv bolus 12.5 g INTRAVENOUS PRN insulin lispro injection (rapid acting) (ADMElog) SUBCUTANEOUS q 6 H sodium chloride 0.9 % (flush) 2-10 mL (BD POSIFLUSH) 2-10 mL INTRAVENOUS DIRECTED PRN And perflutren lipid microspheres 1.1 mg/mL 1.3 mL injection (DEFINITY) 1.3 mL INTRAVENOUS DIRECTED PRN hydrALAZINE 10 mg injection (APRESOLINE) 10 mg INTRAVENOUS q 6 H PRN NaCl 0.9% iv flush bag 20 mL INTRAVENOUS PRN magnesium sulfate iv piggyback in sterile water 2 g 50 mL 2 g INTRAVENOUS q 2 H NaCl 0.9% iv infusion 50 mL/hr INTRAVENOUS CONTINUOUS iv contrast (radiology procedure) INTRAVENOUS DIRECTED PRN Objective Alert, Oriented to Person, Place, Time EOMI PERRL Patient does no smile or stick tongue out fully but appears to have right sided facial droop FERNANDO No Drift Strength is 5/5 in all extremities VITAL SIGNS 24 HOUR REVIEW: Patient Vitals for the past 24 hrs: BP Temp Temp src Pulse Resp SpO2 Weight 08/01/24 1137 115/73 -- -- 111 21 98 % -- 08/01/24 1100 134/69 -- -- 105 15 100 % -- 08/01/24 1000 126/62 -- -- 112 17 99 % -- 08/01/24 0938 161/75 -- -- -- -- -- -- 08/01/24 0900 120/62 -- -- 103 (!) 36 100 % -- 08/01/24 0853 120/62 -- -- 111 23 100 % -- 08/01/24 0800 137/90 36.7 ??C (98.1 ??F) Oral 101 20 100 % -- 08/01/24 0700 118/65 -- -- 117 29 99 % -- 08/01/24 0600 128/67 -- -- 91 18 98 % -- 08/01/24 0506 -- -- -- -- -- -- 65.2 kg (143 lb 11.8 oz) 08/01/24 0500 127/61 -- -- 105 27 97 % -- 08/01/24 0400 124/52 36.4 ??C (97.5 ??F) Oral 82 19 98 % -- 08/01/24 0330 136/85 -- -- 79 16 97 % -- 08/01/24 0300 123/107 -- -- 116 16 98 % -- 08/01/24 0200 105/58 -- -- 83 21 98 % -- 08/01/24 0100 112/61 -- -- 117 26 92 % -- 08/01/24 0015 138/65 -- -- 110 24 99 % -- 08/01/24 0000 138/65 36.5 ??C (97.7 ??F) Oral 101 27 98 % -- 07/31/24 2300 117/56 -- -- 79 16 97 % -- 07/31/24 2230 127/76 -- -- 107 20 99 % -- 07/31/24 2200 159/81 -- -- 82 16 95 % -- 07/31/245 -- -- -- 82 14 96 % -- 07/31/24 2130 156/78 -- -- 75 14 97 % -- 07/31/242114 154/77 -- -- 88 23 95 % -- 07/31/242099 147/73 -- -- 99 16 96 % -- 07/31/242044 -- -- -- 101 14 95 % -- 07/31/242029 149/79 -- -- 77 15 96 % -- 07/31/242014 -- -- -- 100 14 95 % -- 07/31/241999 136/68 37.7 ??C (99.9 ??F) Axillary 82 11 98 % -- 07/31/24 1930 107/63 -- -- 81 12 98 % -- 07/31/24 1900 140/66 -- -- 108 15 99 % -- 07/31/24 1800 139/62 -- -- 111 11 99 % -- 07/31/24 1700 124/69 -- -- 110 19 100 % -- 07/31/24 1600 124/59 36.8 ??C (98.2 ??F) Oral 106 12 98 % -- 07/31/24 1528 118/58 -- -- (!) 125 22 99 % -- 07/31/24 1500 147/87 -- -- (!) 122 20 100 % -- 07/31/24 1400 117/61 -- -- 105 10 99 % -- 07/31/24 1345 117/61 -- -- 103 13 99 % -- 07/31/24 1300 109/65 -- -- 106 16 99 % -- 07/31/24 1245 108/68 -- -- 108 16 99 % -- 07/31/24 1230 106/59 -- -- 103 11 99 % -- 07/31/24 1229 106/59 -- -- 103 9 99 % -- 07/31/24 1219 103/64 -- -- 106 13 98 % -- 07/31/24 1215 103/64 -- -- 108 16 98 % -- LABS: Recent Labs 08/01/24 0442 07/31/24 0700 WBC 9.39 10.29 HB 7.2* 7.7* HCT 23.8* 25.7* PLT 320 358 INR -- 1.0 APTT -- 27.8 NA 135* 131* K 3.2* 3.9 CHLOR 99 99 CO2 22 22 BUN 3* 3* CREAT 0.53* 0.59* GLUC 91 130* CA 8.0* 7.5* MG 1.0* -- P 2.9 -- DATA: Diagnostic tests reviewed for today's visit: Most recent labs and imaging results. Assessment/Plan Principal Problem: Subarachnoid hemorrhage (HCC) (POA: Yes) Assessment & Plan: -Repeat CT brain stable. -STAT CT brain without contrast with change in mental status -MRI brain W/WO IVCON ordered -Q4 neuro neurochecks -OK for dvt ppx in 48 hours -Hold AC -SBP <[address] Ewing Resolved Problems: * No resolved hospital problems. * Medication and Non-Pharmacologic VTE Prophylaxis/Anticoagulants 07/31/24 1200 vte pharmacologic prophylaxis contraindicated (wy,az) 07/31/24 1200 pneumatic compression sleeve(s) (wy,az) VTE Prophylaxis: VTE prophylaxis appropriate SIGNATURE: Jacquelyn Dsouza PA-C PATIENT NAME: Saray Corbin DATE: August 01, 2024 TIME: 12:01 PM * Pennie Fraire PA-C - 07/31/2024 8:21 AM EDTAssociated Order(s): PHYSICIAN CONSULT (AK,AV,EU,FV,HL,IR,SUDHAKAR,MH,MM,MO,MR,SP,UN) SPINE SURGERY INPATIENT CONSULT SERVICE DATE: 07/31/2024 SERVICE TIME: 8:03 AM PCP: Oswaldo Turpin, Consultation requested by Milly Galvan Jr, MD [address] [place] [id number] for an opinion regarding the evaluation and treatment of subarachnoid hemorrhage, traumatic . My final impression and recommendations will be communicated back to the requesting physician by way of the shared medical record or letter via US mail. SUBJECTIVE Saray Corbin is a 63 year old male presenting alone. CHIEF COMPLAINT: fall at home HISTORY OF PRESENT ILLNESS PRECIPITATING EVENT: Injury at home. Saray Corbin is a 63 year old male who presented as a trauma transfer after a fall at home. He has history of seizures, CVA on plavix, anxiety/depression, COPD, LUZ, HTN, CHF, CAD, HLD, and chronicanemia. Per staff, witnessed patient trip over their dog and hit his head. He became unresponsive requiring CPR. EMS was called and continued resuscitation until being brought to [facility]. Patient has GCS of 12-13 upon arrival to [facility]. Imaging was completed showing intraventricular hemorrhage and multiple regions of subarachnoid hemorrhage. Patient was intubated and sent for transfer for further evaluation from neurosurgery. Propofol held for exam. Patient is able to open his eyes on command. He squeezes hands, raises arms, and wiggles toes on command. Spontaneous movement of left lower extremity. He is able to shake hishead yes/no to simple questions. He nodded yes to head pain, dizziness, back pain and right elbow pain. He denied changes in vision, pain in left arm or bilateral legs. ACTIVE PROBLEM LIST Severe Protein-Calorie Malnutrition (Hcc) Nicotine use disorder, F17.2 Ards (Adult Respiratory Distress Syndrome) ([facility]) Status Post Tracheostomy (Hcc) Pleural Effusion Transudative Pancreatic Insufficiency (Hcc) Pharyngeal Dysphagia C. Difficile Diarrhea Iron Deficiency Anemia Secondary to Inadequate Dietary Iron Intake Anemia of Chronic Disease Stress-Induced Cardiomyopathy Dysphagia History of Seizures Stroke (Hcc) Anxiety and Depression Copd (Chronic Obstructive Pulmonary Disease) (Hcc) Luz (Obstructive Sleep Apnea) Htn (Hypertension) Chf (Congestive Heart Failure) (Hcc) Cad (Coronary Artery Disease) Hld (Hyperlipidemia) Subarachnoid Hemorrhage (Hcc) PAST MEDICAL HISTORY Diagnosis Date Alcohol use disorder ARDS (adult respiratory distress syndrome) (HCC) Arthritis Congestive heart failure (HCC) Coronary artery disease Depression GERD (gastroesophageal reflux disease) Iron deficiency anemia Pancreatitis (HCC) Seizure (HCC) PAST SURGICAL HISTORY Procedure Laterality Date LAPAROSCOPY SURG CHOLECYSTECTOMY 10/10/2022 PAST SURGICAL HISTORY OF EGDs with dilation TRACHEOSTOMY FAMILY HISTORY Problem Relation Age of Onset Anesthesia Problems No Family History Blood Clots No Family History Social History Tobacco Use Smoking status: Every Day Current packs/day: 1.00 Types: Cigarettes Smokeless tobacco: Never Tobacco comments: 1.0ppdx since 1986 Vaping Use Vaping status: Never Used Substance Use Topics Alcohol use: Yes Alcohol/week: 8.0 standard drinks of alcohol Types: 8 Cans of beer per week Comment: occ during football games/cook outs Drug use: Never ALLERGIES No Known Allergies MEDICATIONS: fluconazole (DIFLUCAN) 100 mg tablet^Take 2 (two) tablets by mouth on day 1, then take 1 (one) tablet daily for 13 days. Avoid taking seroquel while taking this medication, then resume seroquel afterwards.^Disp: 15 tablet^Rfl: 0 clopidogrel (PLAVIX) 75 mg tablet^Take 75 mg by mouth once daily.^Disp: ^Rfl: Cyclobenzap and Irritant Cntr Irr2 10 mg kit^1 % once daily.^Disp: ^Rfl: dapagliflozin propanediol (FARXIGA) 10 mg tablet^Take 10 mg by mouth daily with breakfast.^Disp: ^Rfl: escitalopram oxalate (LEXAPRO) 10 mg tablet^Take 30 mg by mouth once daily.^Disp: ^Rfl: melatonin 10 mg tab^Take 1 tablet by mouth once daily.^Disp: ^Rfl: metoprolol succinate ER (TOPROL XL) 50 mg 24 hr tablet^Take 50 mg by mouth once daily.^Disp: ^Rfl: INV NITROGLYCERIN 0.4 MG SUBLINGUAL TABLET (IRB 23-702)^Dissolve 0.4 mg under the tongue one time only. Place tablet under tongue and allow to dissolve; do not chew or break. For Investigational DrugUse Only. PI: Teena Carrillo MD.^Disp: ^Rfl: pregabalin (LYRICA) 75 mg capsule^Take 75 mg by mouth two times a day.^Disp: ^Rfl: rosuvastatin (CRESTOR) 20 mg tablet^Take 20 mg by mouth once daily.^Disp: ^Rfl: sacubitril-valsartan (ENTRESTO) 24-26 mg tablet^Take 1 tablet by mouth two times a day.^Disp: ^Rfl: sildenafil (VIAGRA) 100 mg tablet^Take 100 mg by mouth once daily as needed.^Disp: ^Rfl: magnesium chloride (SLOW-MAG ORAL)^Take 1 % by mouth as needed.^Disp: ^Rfl: spironolactone (ALDACTONE) 25 mg tablet^Take 12.5 mg by mouth once daily. Take 0.5 tablets (12.5 mg) by mouth once daily^Disp: ^Rfl: tamsulosin (FLOMAX) 0.4 mg^Take 0.4 mg by mouth once daily.^Disp: ^Rfl: traMADol (ULTRAM) 50 mg tablet^Take 50 mg by mouth every 6 hours as needed for pain.^Disp: ^Rfl: QUEtiapine (SEROQUEL) 25 mg tablet^50 mg.^Disp: ^Rfl: escitalopram oxalate (LEXAPRO) 20 mg tablet^Take 1 tablet by mouth once daily. Oral/ feeding tube^Disp: 30 tablet^Rfl: 0 SUMAtriptan (IMITREX) 50 mg tablet^Take 50 mg by mouth as needed.^Disp: ^Rfl: pantoprazole DR (PROTONIX) 40 mg tablet^Take 40 mg by mouth once daily.^Disp: ^Rfl: REVIEW OF SYSTEMS: GENERAL: No weight loss or malaise MUSCULOSKELETAL: Negative for joint pain, swelling or muscle pain NEURO: No history of headaches, syncope, paralysis, seizures or tremors OBJECTIVE: PHYSICAL EXAM BP 102/59 Pulse 85 Temp 36.6 ??C (97.9 ??F) Resp 15 Wt 63.5 kg (139 lb 15.9 oz) SpO2 100% BMI 20.67 kg/m?? GENERAL APPEARANCE: Intubated in ED. NEURO PSYCH: Mood pleasant. Unable to speak due to intubation but nodded yes to knowing his name and location. CARDIOVASCULAR: No edema noted. No varicosities. SKIN: Head, neck, trunk, and extremities dry, intact and without lesions. Abrasion to right elbow. MUSCULOSKELETAL VISUAL INSPECTION CERVICAL: WNL THORACIC: WNL LUMBAR: WNL MOTOR: squeezes bilateral hands, L>R. Raises bilateral arms off bed when prompted. Wiggles toes bilaterally. Moves LLE spontaneously. PERRL, about 3mm bilaterally Opens eyes when prompted Shakes head yes/no to simple questions DATA REVIEW [facility] records independently reviewed Imaging and outside records independently reviewed Assessment & Plan Subarachnoid hemorrhage (HCC) -ICU -Q1H neurochecks -CT brain without contrast in AM -STAT CT brain without contrast with change in mental status -SBP < 140 -Hold AC/AP -Imaging reports from [facility] faxed over and given to medical records to upload in patient chart Discussed with Dr. Ewing SIGNATURE: Pennie Fraire PA-C PATIENT NAME: Saray Corbin DATE: July 31, 2024 TIME: 8:21 AM PAGER: documented in this encounter Nursing Notes * Kimberly Quiroga RN - 08/14/2024 5:52 AM EDT Nursing Progress: Topic: RESTRAINT NON-VIOLENT PATIENT NAME: Saray Corbin [facility] Room: [place] [address] The patient demonstrates Attempting to Remove Medical Devices Vital to Medical Stability, Lack of Understanding/Ability to Comply with Safety Directions as evidenced by the following behaviors attempt to remove lines and inability to follow commands which pose an imminent danger to self or others. The following interventions were attempted but were not effective in protecting the patient's safety: Alarms, Family/Significant Other Involvement, Bed in Low/Locked Position, Call Light Within Reach, Diversion Activities, Gauze Wrap/Sleeve IV Site, Medications Reviewed, Modify Environment, Modify Equipment, Move Patient Closer to Nurses Station, Pad Tubes/Drains, Pain/Discomfort Relief, Re-Orientation Methods Next, a comprehensive assessment was performed and warranted placing the patient in Hand Mitt Left,Hand Mitt Right, the least restrictive restraint needed to protect the patient's safety. Ongoing safety assessments and evaluation for earliest removal of restraints will be performed. DATE: August 14, 2024 TIME: 5:53 AM Kimberly Quiroga RN * Radha Vigil RN - 08/13/2024 4:46 PM EDT Nursing Progress: Topic: RESTRAINT NON-VIOLENT PATIENT NAME: Saray Corbin [facility] Room: [place] [address] The patient demonstrates Attempting to Remove Medical Devices Vital to Medical Stability, Confusion, Lack of Understanding/Ability to Comply with Safety Directions, Impulsive Behavior, Inability to Retain Information Regarding Safety Directions as evidenced by the following behaviors attempting to remove lines which are pertinent for treatment, unable to follow directions which pose an imminent danger to self or others. The following interventions were attempted but were not effective in protecting the patient's safety: Alarms, Bed in Low/Locked Position, Call Light Within Reach, Diversion Activities, Gauze Wrap/Sleeve IV Site, IV/Feeding Bag/Pump Out of Vision, Medications Reviewed, Modify Environment, Frequent Observation, Pain/Discomfort Relief, Partial Bedrails Up, Re-Orientation Methods, Toileting Next, a comprehensive assessment was performed and warranted placing the patient in Hand Mitts Bilateral, the least restrictive restraint needed to protect the patient's safety. Ongoing safety assessments and evaluation for earliest removal of restraints will be performed. DATE: August 13, 2024 TIME: 4:46 PM Radha Vigil RN * Radha Vigil RN - 08/13/2024 9:00 AM EDT Nursing Progress: Topic: RESTRAINT NON-VIOLENT PATIENT NAME: Saray Corbin Patient Location: [place] [address] [address] Room: [place] [address] The patient demonstrates Attempting to Remove Medical Devices Vital to Medical Stability, Confusion, Lack of Understanding/Ability to Comply with Safety Directions, Impulsive Behavior, Inability to Retain Information Regarding Safety Directions as evidenced by the following behaviors pulling at lines, unable to follow commands which pose an imminent danger to self or others. The following interventions were attempted but were not effective in protecting the patient's safety: Alarms, Bed in Low/Locked Position, Call Light Within Reach, Diversion Activities, Gauze Wrap/Sleeve IV Site, IV/Feeding Bag/Pump Out of Vision, Medications Reviewed, Modify Environment, Frequent Observation, Pain/Discomfort Relief, Partial Bedrails Up, Re-Orientation Methods, Toileting Next, a comprehensive assessment was performed and warranted placing the patient in Hand Mitts Bilateral, the least restrictive restraint needed to protect the patient's safety. Ongoing safety assessments and evaluation for earliest removal of restraints will be performed. DATE: August 13, 2024 TIME: 4:45 PM Radha Vigil RN * Chichi Gomez RN - 08/13/2024 2:00 AM EDT Nursing Progress: Topic: RESTRAINT NON-VIOLENT PATIENT NAME: Saray Corbin [facility] Room: [place] [id number] The patient demonstrates Attempting to Remove Medical Devices Vital to Medical Stability, Confusion, Lack of Understanding/Ability to Comply with Safety Directions, Impulsive Behavior, Inability to Retain Information Regarding Safety Directions as evidenced by the following behaviors pulling at lines, restless at times, unable to follow directions at times which pose an imminent danger to self orothers. The following interventions were attempted but were not effective in protecting the patient's safety: Alarms, Bed in Low/Locked Position, Call Light Within Reach, Diversion Activities, Gauze Wrap/Sleeve IV Site, IV/Feeding Bag/Pump Out of Vision, Medications Reviewed, Modify Environment, Frequent Observation, Pain/Discomfort Relief, Partial Bedrails Up, Re-Orientation Methods, Toileting Next, a comprehensive assessment was performed and warranted placing the patient in Hand Mitts Bilateral, the least restrictive restraint needed to protect the patient's safety. Ongoing safety assessments and evaluation for earliest removal of restraints will be performed. DATE: August 13, 2024 TIME: 2:06 AM Chichi Gomez RN * Radha Vigil RN - 08/12/2024 5:10 PM EDT Nursing Progress: Topic: RESTRAINT NON-VIOLENT PATIENT NAME: Saray Corbin Patient Location: [place] [id number] [address] Room: [place] [address] The patient demonstrates Attempting to Remove Medical Devices Vital to Medical Stability, Lack of Understanding/Ability to Comply with Safety Directions, Impulsive Behavior, Inability to Retain Information Regarding Safety Directions as evidenced by the following behaviors pulling at lines, unable to follow directions which pose an imminent danger to self or others. The following interventions were attempted but were not effective in protecting the patient's safety: Alarms, Bed in Low/Locked Position, Diversion Activities, Gauze Wrap/Sleeve IV Site, IV/Feeding Bag/Pump Out of Vision, Modify Environment, Modify Equipment, Frequent Observation, Move Patient Closer to Nurses Station, Pad Tubes/Drains, Partial Bedrails Up, Re-Orientation Methods Next, a comprehensive assessment was performed and warranted placing the patient in Hand Mitts Bilateral, the least restrictive restraint needed to protect the patient's safety. Ongoing safety assessments and evaluation for earliest removal of restraints will be performed. DATE: August 12, 2024 TIME: 5:10 PM Radha Vigil RN * Cali France RN - 07/31/2024 11:51 AM EDT Nursing Progress: Topic: RESTRAINT NON-VIOLENT PATIENT NAME: Saray Corbin Patient Location: [place] [address] Room: [place] [address] The patient demonstrates as evidenced by the following behaviors pulling at lines and tubes which pose an imminent danger to self or others. The following interventions were attempted but were not effective in protecting the patient's safety: Other: See Comment (N/A, pt intubated, safety concern) Next, a comprehensive assessment was performed and warranted placing the patient in Soft Wrist Bilateral, the least restrictive restraint needed to protect the patient's safety. Ongoing safety assessments and evaluation for earliest removal of restraints will be performed. DATE: July 31, 2024 TIME: 11:51 AM Cali France RN * Kimberly Smalls RN - 07/31/2024 7:10 AM EDT Nursing Progress: Topic: RESTRAINT NON-VIOLENT PATIENT NAME: Saray Corbin Patient Location: [id number] Room: 03-ED The patient demonstrates as evidenced by the following behaviors: pt intubated and sedated which pose an imminent danger to self due to potential for self extubation. The following interventions were attempted but were not effective in protecting the patient's safety: Other: See Comment (N/A, pt intubated, safety concern) Next, a comprehensive assessment was performed and warranted placing the patient in Soft Wrist Bilateral, the least restrictive restraint needed to protect the patient's safety. Ongoing safety assessments and evaluation for earliest removal of restraints will be performed. DATE: July 31, 2024 TIME: 0710AM Kimberly Smalls RN documented in this encounter ED Notes * Kimberly Smalls RN - 07/31/2024 11:23 AM EDT Report given to Marielena RN * Kimberly Smalls RN - 07/31/2024 11:07 AM EDT Report given to Cali RN * Kezia Lara MD - 07/31/2024 8:13 AM EDT ED CONTINUATION OF CARE NOTE Code Status: Prior Assumed care from: Dr. Lorenzana Presentation / Findings / Interventions / Plan / Items to Follow Up: pending ICU admit, traumatic SAH, intubated Clinical Impressions as of 07/31/24 0813 Subarachnoid hemorrhage (HCC) Closed head injury, initial encounter Contusion of right elbow, initial encounter Nicotine use disorder Anemia, unspecified type Medical Decision Making Nsgy eval pt, had CTA at 3am at OSH, will attempt to get reads. Continue sedation and BP monitoringfor now. Pending admit to ICU SIGNATURE: Kezia Lara MD PATIENT NAME: Saray Corbin DATE: July 31, 2024 TIME: 8:13 AM PAGER/CONTACT #: KEZIA LARA 07/31/24 0814 * Clayton Anderson RN - 07/31/2024 7:27 AM EDT * Dru Lorenzana MD - 07/31/2024 6:45 AM EDT ED Provider Note Patient Name: Saray Corbin : 1960 SERVICE DATE: 07/31/24 History No chief complaint on file. HPI TRAUMA 2-transfer, fall, head injury with subarachnoid hemorrhage, intubated at the emergency department sent over here for evaluation no chronic anticoagulation, GCS at hospital was around 12, they elected to intubate him because of his difficulty of staying awake. They stated he was not chronically anticoagulated. Has a history of alcohol abuse, R's, tobacco use, anemia, stroke, COPD, congestive heart failure, pancreatitis, PAST MEDICAL HISTORY Diagnosis Date Alcohol use disorder ARDS (adult respiratory distress syndrome) (HCC) Arthritis Congestive heart failure (HCC) Coronary artery disease Depression GERD (gastroesophageal reflux disease) Iron deficiency anemia Pancreatitis (HCC) Seizure (HCC) PAST SURGICAL HISTORY Procedure Laterality Date LAPAROSCOPY SURG CHOLECYSTECTOMY 10/10/2022 PAST SURGICAL HISTORY OF EGDs with dilation TRACHEOSTOMY FAMILY HISTORY Problem Relation Age of Onset Anesthesia Problems No Family History Blood Clots No Family History Social History Tobacco Use Smoking status: Every Day Current packs/day: 1.00 Types: Cigarettes Smokeless tobacco: Never Tobacco comments: 1.0ppdx since 1986 Vaping Use Vaping status: Never Used Substance and Sexual Activity Alcohol use: Yes Alcohol/week: 8.0 standard drinks of alcohol Types: 8 Cans of beer per week Comment: occ during football games/cook outs Drug use: Never Sexual activity: Not on file ALLERGIES No Known Allergies Review of Systems Unable to obtain Physical Exam Vitals BP Pulse Temp Temp src Resp SpO2 Weight Height -- -- -- -- -- -- -- -- Physical Exam Vital signs and Nursing notes were reviewed Gen Appearance: Patient is intubated, does respond to few commands such as squeezing hands and moving his toes. Neck: Supple, Trach/Thyroid normal, no midline tenderness EENT: PERRLA, EOMI, Conjunctivae normal. no nystagmus, no raccoon or Xiao sign, right-sided abrasion to the scalp Skin: Warm and dry Cardiovascular: Heart RRR, no gallops or rubs Respiratory: Lungs mild diminished no wheezing, no rales, No use of accessory muscles Gastrointestinal: Abdomen non tender,no rebound/gaurding/distention Genitourinary: Bladder not tender, Ahn catheter in place no blood at the meatus Musculoskeletal: Abrasion and hematoma to the right elbow no deformity, No back or hip pain. No edema, symmetrical pulses Neurological: Pt is intubated follows a few simple commands moving both fingers and left foot rightfoot did not seem to move too much Diagnostic Testing My interpretation labs show hemoglobin low at 7.7 X-ray of the chest and pelvis report were noted X-rays from outlying facility reports were noted Critical Care I spent a total of 32 minutes of critical care time in the evaluation and management of this patient. This was necessary to treat or prevent deterioration of the following condition(s): Traumatic brain injury, subarachnoid hemorrhage, intubated patient , which the patient had and/or has a high probability of suddenly developing. The patient received continuous monitoring, multiple reevaluations, IV medication, trauma 2 activation, neurosurgery consultation, SICU admission, during the time that critical care was provided. Critical care time excludes separately billed procedures. Dru Lorenzana MD Procedures ED Course / Clinical Impression Trauma team was assembled, patient was evaluated MDM / Disposition / Plan Discussed with neurosurgery-they wanted every hour neurochecks repeat CAT scan at the 6-hour randall, stat CTA of the head neck And to monitor blood pressure keep it in acceptable range less than 140 Trauma service said they will notify SICU Patient in critical condition admitted for further evaluation and treatment MDM SIGNATURE: Dru Lorenzana MD - DRU LORENZANA 07/31/24 0736 * Clayton Anderson RN - 07/31/2024 6:[address] Lorenzana, 2 trauma residents, RT, 2 nurses at bedside. 0633: Patient arrived intubated ETT size 7 25 at the teeth. Propofol started by critical care transport running at 15mcg/kg. documented in this encounter Miscellaneous Notes * Nutrition - Nicic Browning, LEILA - 08/15/2024 1:37 PM EDT NUTRITION THERAPY PROGRESS NOTE SERVICE DATE: 08/15/2024 SERVICE TIME: Start Time: 1113 Nutrition Assessment: Recommended Malnutrition Diagnosis: Severe Protein-Calorie Malnutrition (08/03/24 1352 : Gertrude Sutton, RD) Care Plan: Vitamins and Minerals: Folic Acid, Thiamine Enteral Nutrition Tube Feeding Formula Type: Nutren 1.5 Goal Rate (mL/hr x hours): 50 ml/hr to provide 1800 kcal and 82 g protein Water Flush Volume (mL x frequency): 120 cc Q6H Monitor and Evaluation: Meet greater than 75% of estimated needs, Monitor fluid/electrolyte balance, Monitor labs, I/Os, vital signs, weight, Monitor tolerance to tube feeding, Monitor bowel function Interval History: Pt is tolerating TF at goal rate, no issues noted. Denies nausea or abdominal pain. Consider adjusting water flushes as now sodium WNL Stool Amount: WNL Intake History: Current Nutrition Intake: Greater than 75% estimated energy needs Current Intake Over time: Greater than or equal to 7 days Average Daily Calorie Intake (kcal): 1800 kcal Average Daily Protein Intake (gm): 82 gm Average intake over: 7 days Dosing Weight: 59.9 kg (132 lb) Dosing Weight Type: Current weight Estimated kilocalorie needs: 2046-6028 Calorie Calculation Method: 30-35 kcals/kg Estimated protein needs (grams): 72-90 Grams protein determined by: 1.2 - 1.5 g/kg Diet Orders (From admission, onward) Start Ordered 08/13/24 1230 DIET TUBE FEED - CONTIN (NO TRAY) START NOW Question Answer Comment TF Product (26 years and up) NUTREN 1.5 [place] Approved Secondary TF Product (Do Not Change) Osmolite 1.5 TF Total mL per 24 hours 1200 Number of Liter Bags 1 TF Goal Rate (mL/hr) 50 TF Initial Rate (mL/hr) 20 TF Advance by (mL/hr) 10 TF Advance every (hrs) 8 TF Water Flush Amount (mL) 50 TF Water Flush Frequency Every 8 Hours NPO Restrictions EXCEPT ICE CHIPS Feeding instructions for nursing Ice chips one at a time only while upright and after oral care 08/13/24 1220 Anthropometrics: Height: 175 cm (5' 8.9 ) Weight: 60.3 kg (132 lb 15 oz) Body mass index is 19.69 kg/m??. Lines, Drains, and Airways Drain Duration GI/ Feeding 08/03/24 1355 Gastric Right Naris 12 Fr 11 days External Collection Device 08/15/24 0911 [facility] <1 day MNT Billing: $ Routine Care : 1 unit Time Spent (mins): 2 SIGNATURE: Nicci Browning RD PATIENT NAME: Saray Corbin DATE: August 15, 2024 TIME: 1:37 PM * Nutrition - Winnie Mead RD - 08/08/2024 1:13 PM EDT NUTRITION THERAPY PROGRESS NOTE SERVICE DATE: 08/08/2024 SERVICE TIME: Start Time: 1240 Nutrition Assessment: Recommended Malnutrition Diagnosis: Severe Protein-Calorie Malnutrition (08/03/24 1352 : Gertrude Sutton RD) Care Plan: Continue current diet Refer to: Speech/Language Vitamins and Minerals: Folic Acid, Thiamine Medications: IV Magnesium sulfate 2 gm, IV Magnesium sulfate 4 gm (oral phos k; Ure-Na) Labs: Magnesium, Phosphorus, Potassium (daily) Enteral Nutrition Tube Feeding Formula Type: Nutren 1.5 Goal Rate (mL/hr x hours): 50 ml hr x 24 hr = 1200 ml = 1800 kcal and 81 gm protein startslow and advance slowly due to high risk for refeeding with ETOH history Water Flush Volume (mL x frequency): 50 Q 8 per MD due to hyponatremia; follow to increase water Recommended Enteral Access: Small Bore, Nasal, Gastric (tip near pylorus) Monitor and Evaluation: Meet greater than 75% of estimated needs, Monitor fluid/electrolyte balance, Monitor labs, I/Os, vital signs, weight, Monitor tolerance to tube feeding, Monitor bowel function Discharge Recommendations: Diet, Enteral Tube Feeding Diet: currently NPO per SANDING MACHINE OPERATOR OR TENDER eval Discharge Formula Type: standard 1.5 kca formula, follow to use fiber containing formula Medical Necessity for Enteral Nutrition: Non-functional or disease of the structures that permit food to reach the small bowel, Requires tube feedings to maintain weight & strength, Adequate nutrition is not possible through dietary adjustments or oral supplements Patient Requires an Enteral Nutrition Infusion Pump for the Following Reason(s): administration rate <100 mL/hr Interval History: enteral feeds continue MBSS 6/2 and NPO recommended - vocal cord dysfunction with ENT follow up planned Electrolyte abnormalities being managed with FWF change Ure-Na and mag and phos repletion Patient awake and not coherent Stool Amount: WNL Stool Consistency: (formed until today samaniego and liquid) Intake History: Current Nutrition Intake: Less than 50% estimated energy needs Current Intake Over time: Greater than or equal to 5 days (slow tube feed ramp up and then held. resumed) Average Daily Calorie Intake (kcal): 500 kcal Average Daily Protein Intake (gm): 23 gm Average intake over: 5 days Dosing Weight: 59.9 kg (132 lb) Dosing Weight Type: Current weight Estimated kilocalorie needs: 0702-5590 Calorie Calculation Method: 30-35 kcals/kg Estimated protein needs (grams): 72-90 Grams protein determined by: 1.2 - 1.5 g/kg Diet Orders (From admission, onward) Start Ordered 08/07/24 0945 DIET TUBE FEED - CONTIN (NO TRAY) START NOW Question Answer Comment TF Product (26 years and up) NUTREN 1.5 [place] Approved Secondary TF Product (Do Not Change) Osmolite 1.5 TF Total mL per 24 hours 1200 Number of Liter Bags 1 TF Goal Rate (mL/hr) 50 TF Initial Rate (mL/hr) 20 TF Advance by (mL/hr) 10 TF Advance every (hrs) 8 TF Water Flush Amount (mL) 50 TF Water Flush Frequency Every 8 Hours NPO Restrictions EXCEPT ICE CHIPS Feeding instructions for nursing Ice chips one at a time only while upright and after oral care 08/07/24 0934 Anthropometrics: Height: 175 cm (5' 8.9 ) Weight: 60.3 kg (132 lb 15 oz) Body mass index is 19.69 kg/m??. Lines, Drains, and Airways Drain Duration External Collection Device 08/02/24 1015 [facility] 6 days GI/ Feeding 08/03/24 1355 Gastric Right Naris 12 Fr 4 days MNT Billing: $ Routine Care : 1 unit Time Spent (mins): 3 SIGNATURE: Winnie Mead RD PATIENT NAME: Saray Corbin DATE: August 08, 2024 TIME: 1:13 PM * [facility] - Jennifer Wheeler TECHNOLOGIST - 08/08/2024 10:29 AM EDT Radiology Service Progress Note PATIENT NAME: Saray Corbin DATE OF SERVICE: August 08, 2024 TIME: 10:29 AM PATIENT IDENTITY VERIFICATION COMPLETED USING TWO (2) IDENTIFIERS: Name and Date of confirmedby patient verbally. FALL SCREENING: Has the patient had 2 falls in the last year or 1 fall with injury or currently using an Ambulatory Assistive Device (Walker, Cane, Wheelchair, Crutches, etc.)? 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 Pt reports she was getting up to let the dogs outside and when she came back in she found pt on the floor and unresponsive. Appears to have hit his head on the corner of a marble coffee table. + head strike,+ LOC about 5-7 minutes prior to calling EMS, - AC use. reports pt was stiff and unable to layhim flat to start CPR, although no clear loss of pulse. Pt was transported to an OSH ED, per reports was nodding his head to questions but was intubated for airway protection. Trauma imaging revealed: - Traumatic right SAH - Left lateral IVH - Bilateral occipital horn and 4th ventricle hemorrhage - Right maxillary sinus hematoma - Right elbow abrasion - Right temporal abrasion CTA was also completed with nothing acute per report. Pt was transferred to and admitted to [facility] further trauma management. NSGY was consulted and repeat head CT was completed which was stable. Pt given keppra 1g BID. After conversation with spouse, she reported pt has had numerous falls lately with dizziness and syncope. Fell about 2 weeks ago and thinks he fractured his ribs but refused to seek treatment. Further imaging ordered and revealed: - Acute vs subacute right 9-12th non displaced posterior rib fractures - Sub acute sternal fracture - Trace right pleural effusion - Incidental RUL 17 mm nodule Patient was seen at bedside this AM just after extubation. Pt is drowsy, opens eyes to name. Oriented x 1, moves all extremities but noted right arm and right leg weakness. Follows some commands, unable to assess facial droop. Tertiary complete without further traumatic injuries identified. BEM on without evidence of seizures. Awaiting syncope work up. Will need speech, PT and OT evals. Appreciate further NSGY recommendations. 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 Suspect mentation is going to be slow to improve/recover and not able to guess as to how much recovery he will gain after TBI * [facility] Abner Reyes RT(R) - 08/05/2024 1:30 PM EDT Radiology Service Progress Note PATIENT NAME: Saray Corbin DATE OF SERVICE: August 05, 2024 TIME: 1:37 PM PATIENT IDENTITY VERIFICATION COMPLETED USING TWO (2) IDENTIFIERS: Name and Date of confirmedby patient verbally and Name and Date of confirmed by identification band. FALL SCREENING: Has the patient had 2 falls in the last year or 1 fall with injury or currently using an Ambulatory Assistive Device (Walker, Cane, Wheelchair, Crutches, etc.)? [facility] PATIENT GENDER DATA: Assigned male at PATIENT RELEVANT IMPLANT DATA REVIEWED: Not Applicable PATIENT PRESENTS WITH AN IMPLANTABLE OR ATTACHED NURSE DISCHARGE: No RADIOLOGY DEPARTMENT: General X-ray: Exam(s) Completed: GI/ Procedure(s): Modified barium swallowwith barium contrast PERIPHERAL IV DATA: Not applicable SIGNED BY: RT Derik(R) August 05, 2024 1:37 PM * Abner Gong RT(R) - 08/03/2024 2:47 PM EDT Radiology Service Progress Note PATIENT NAME: Saray Corbin DATE OF SERVICE: August 03, 2024 TIME: 2:47 PM PATIENT IDENTITY VERIFICATION COMPLETED USING TWO (2) IDENTIFIERS: Name and Date of confirmedby patient verbally and Name and Date of confirmed by identification band. FALL SCREENING: Has the patient had 2 falls in the last year or 1 fall with injury or currently using an Ambulatory Assistive Device (Walker, Cane, Wheelchair, Crutches, etc.)? Inpatient: Screened on[facility] PATIENT GENDER DATA: Assigned male at PATIENT RELEVANT IMPLANT DATA REVIEWED: Not Applicable PATIENT PRESENTS WITH AN IMPLANTABLE OR ATTACHED NURSE DISCHARGE: No RADIOLOGY DEPARTMENT: General X-ray: Exam(s) Completed: Chest X-Ray Abdomen X-Ray: Abdomen PERIPHERAL IV DATA: Not applicable SIGNED BY: RT Derik(R) August 03, 2024 2:47 PM * Nutrition - Gertrude Sutton, LEILA - 08/03/2024 2:04 PM EDT NUTRITION THERAPY INITIAL ASSESSMENT SERVICE DATE: 08/03/2024 SERVICE TIME: Start Time: 1200 Nutrition Assessment: Recommended Malnutrition Diagnosis: Severe Protein-Calorie Malnutrition In the context of: Acute Illness or Injury Based on: Subcutaneous Fat Loss, Muscle Loss, Decline in Functional Status Nutrition Diagnosis: Problem: Suboptimal oral intake Related to: Inability to consume sufficient nutrients As evidenced by: Intake records, Imaging studies, Food/nutrition related history, Anorexia, Depletion of fat/muscle stores, Patient/family self-report, Medical condition, Laboratory markers Care Plan: Continue current diet (NPO) Vitamins and Minerals: Multivitamin with minerals, Thiamine Medications: IV Sodium phosphate 15 mmol Labs: Phosphorus, Magnesium, Potassium Enteral Nutrition Tube Feeding Formula Type: Nutren 1.5 Goal Rate (mL/hr x hours): 50 ml hr x 24 hr = 1200 ml = 1800 kcal and 81 gm protein startslow and advance slowly due to high risk for refeeding with ETOH history Water Flush Volume (mL x frequency): 100 ml q 4 hr Recommended Enteral Access: Small Bore, Nasal, Duodenal Monitor and Evaluation: Meet greater than 75% of estimated needs, Monitor fluid/electrolyte balance HPI: 63 year old male with a fall, head injury with subarachnoid hemorrhage History of ETOH Dysphagia and NPO per speech eval Intake History: Nutrition Intake Prior to Admission: Less than 75% estimated energy needs greater than or equal to 1 month Current Nutrition Intake: 0-25% estimated energy needs Current Intake Over time: (NPO) Pt states he eats well at home and then states he does not eat 3 meals per day and states wt loss but does not know how much Pt will require Corpak tube - dysphagia and NPO with MBSS on Monday Pt requires Mag bolus and phos as well - high refeeding risk Dosing Weight: 59.9 kg (132 lb) Dosing Weight Type: Current weight Estimated kilocalorie needs: 2177-6072 Calorie Calculation Method: 30-35 kcals/kg Estimated protein needs (grams): 72-90 Grams protein determined by: 1.2 - 1.5 g/kg Diet Orders (From admission, onward) Start Ordered 08/02/24 1545 DIET NPO START NOW 08/02/24 1535 Anthropometrics: Height: 175 cm (5' 8.9 ) Weight: 60.3 kg (132 lb 15 oz) Usual Weight: 55.8 kg (123 lb) not certain Usual Weight Obtained From: Patient Body mass index is 19.69 kg/m??. Weight change percentage over time: Unable to determine recent wt change - although pt stated wt loss is probable Weight Change: Unable to determine Physical Exam: Subcutaneous fat loss: Subcutaneous Fat Loss Assessed Orbital: Slightly dark circles, somewhat hollow look (Mod) Upper Arm (Triceps): Some depth to pinch, not ample fat (Mod) Muscle loss: Muscle Loss Assessed Temporalis: Slight depression (Mod) Clavicle: Protruding and prominent bone (Severe) Acromion: Acromion process slightly protrudes (Mod) Scapula: Slight depression, bone slightly show (Mod) Interosseous (Hand): Slight depression of muscle (Mod) Quadricep: Depression/line on thigh, kneecap prominent (Severe) Gastrocnemius: Thin, minimal to no muscle definition (Severe) Potential micronutrient deficiency: Skin Edema/Ascites: No edema GI Symptoms: Anorexia, Swallowing problems Functional Status: Regressed Potential Signs of Inflammation: Chronic condition, Imaging studies, Hypoalbuminemia, HyperglycemiaAlcohol use disorder ARDS (adult respiratory distress syndrome) (HCC) Congestive heart failure (HCC) Coronary artery disease Depression GERD Iron deficiency anemia Pancreatitis (HCC) Seizure (HCC) Lines, Drains, and Airways Drain Duration External Collection Device 08/02/24 1015 [facility] 1 day GI/ Feeding 08/03/24 1355 Gastric Right Naris 12 Fr <1 day MNT Billing: $ Routine Care : 1 unit Time Spent (mins): 5 SIGNATURE: Gertrude Sutton RD PATIENT NAME: Saray Corbin DATE: August 03, 2024 TIME: 2:04 PM * [facility] - Vaibhav Roldan RT(R) - 08/01/2024 8:50 PM EDT Radiology Service Progress Note PATIENT NAME: Saray Corbin DATE OF SERVICE: August 01, 2024 TIME: 8:50 PM PATIENT IDENTITY VERIFICATION COMPLETED USING TWO (2) IDENTIFIERS: Name and Date of confirmedby patient verbally and Name and Date of confirmed by identification band. FALL SCREENING: Has the patient had 2 falls in the last year or 1 fall with injury or currently using an Ambulatory Assistive Device (Walker, Cane, Wheelchair, Crutches, etc.)? [facility] PATIENT GENDER DATA: Assigned male at PATIENT RELEVANT IMPLANT DATA REVIEWED: Yes PATIENT PRESENTS WITH AN IMPLANTABLE OR ATTACHED NURSE DISCHARGE: No RADIOLOGY DEPARTMENT: MR; Exam(s) Completed: Head: Routine Brain. Lavender Administered: No PERIPHERAL IV DATA: Inpatient: see LDA documentation SIGNED BY: RT Solange(R) August 01, 2024 8:50 PM * [facility] Lamont Yan RT(R) - 08/01/2024 5:02 AM EDT Radiology Service Progress Note PATIENT NAME: Saray Corbin DATE OF SERVICE: August 01, 2024 TIME: 5:02 AM PATIENT IDENTITY VERIFICATION COMPLETED USING TWO (2) IDENTIFIERS: Name and Date of confirmedby patient verbally and Name and Date of confirmed by identification band. FALL SCREENING: Has the patient had 2 falls in the last year or 1 fall with injury or currently using an Ambulatory Assistive Device (Walker, Cane, Wheelchair, Crutches, etc.)? Emergency Room Patient: Screened in ED PATIENT GENDER DATA: Assigned male at PATIENT RELEVANT IMPLANT DATA REVIEWED: Not Applicable PATIENT PRESENTS WITH AN IMPLANTABLE OR ATTACHED NURSE DISCHARGE: No RADIOLOGY DEPARTMENT: CT; Exam(s) Completed: Chest and Face/Mandible PERIPHERAL IV DATA: Not applicable SIGNED BY: RT Katie(R) August 01, 2024 5:02 AM * [facility], Chika, RDMS - 07/31/2024 6:56 PM EDT Radiology Service Progress Note PATIENT NAME: Saray Corbin DATE OF SERVICE: July 31, 2024 TIME: 6:56 PM PATIENT IDENTITY VERIFICATION COMPLETED USING TWO (2) IDENTIFIERS: Name and Date of confirmedby identification band. FALL SCREENING: Has the patient had 2 falls in the last year or 1 fall with injury or currently using an Ambulatory Assistive Device (Walker, Cane, Wheelchair, Crutches, etc.)? [facility] PATIENT GENDER DATA: Assigned male at PATIENT RELEVANT IMPLANT DATA REVIEWED: Not Applicable PATIENT PRESENTS WITH AN IMPLANTABLE OR ATTACHED NURSE DISCHARGE: No RADIOLOGY DEPARTMENT: Ultrasound PERIPHERAL IV DATA: Not applicable SIGNED BY: Chika Garza RDMS July 31, 2024 6:56 PM * [facility] - Kim Arambula CT - 07/31/2024 10:40 AM EDT Radiology Service Progress Note PATIENT NAME: Saray Corbin DATE OF SERVICE: July 31, 2024 TIME: 10:40 AM PATIENT IDENTITY VERIFICATION COMPLETED USING TWO (2) IDENTIFIERS: Name and Date of confirmedby patient verbally and Name and Date of confirmed by identification band. FALL SCREENING: Has the patient had 2 falls in the last year or 1 fall with injury or currently using an Ambulatory Assistive Device (Walker, Cane, Wheelchair, Crutches, etc.)? No PATIENT GENDER DATA: Assigned male at PATIENT RELEVANT IMPLANT DATA REVIEWED: Not Applicable PATIENT PRESENTS WITH AN IMPLANTABLE OR ATTACHED NURSE DISCHARGE: No RADIOLOGY DEPARTMENT: CT; Exam(s) Completed: Brain PERIPHERAL IV DATA: Not applicable SIGNED BY: EMILIANO Ramirez July 31, 2024 10:40 AM * [facility] - Katharina Palmer RT(Fuad) - 07/31/2024 7:41 AM EDT Radiology Service Progress Note PATIENT NAME: Saray Corbin DATE OF SERVICE: July 31, 2024 TIME: 7:41 AM PATIENT IDENTITY VERIFICATION COMPLETED USING TWO (2) IDENTIFIERS: Name and Date of confirmedby identification band. FALL SCREENING: Has the patient had 2 falls in the last year or 1 fall with injury or currently using an Ambulatory Assistive Device (Walker, Cane, Wheelchair, Crutches, etc.)? Emergency Room Patient: Screened in ED PATIENT GENDER DATA: Assigned male at PATIENT RELEVANT IMPLANT DATA REVIEWED: Not Applicable PATIENT PRESENTS WITH AN IMPLANTABLE OR ATTACHED NURSE DISCHARGE: No RADIOLOGY DEPARTMENT: General X-ray: Exam(s) Completed: Upper Extremity X- Ray(s): Humerus, right , Elbow, right , and Forearm, right PERIPHERAL IV DATA: Not applicable SIGNED BY: RT Derian(R) July 31, 2024 7:41 AM * Plan of Care - Pennie Fraire PA-C - 07/31/2024 6:59 AM EDT NEUROSURGERY PLAN OF CARE Saray Corbin is a 63 year old male who had a fall at home. + LOC. On plavix for CVA. Imaging noted SAH and IVH. He was intubated. He is following some commands while on propofol. -ICU -Q1H neurochecks -Hold AC/AP -CTA head and neck reports from outside hospital requested -STAT CT brain with change in mental status -SBP < [address] Ewing Full consult to follow Paged at 6:45 AM Returned page at 6:51 AM. Please call with any questions or changes Pennie Fraire PA-C * [facility] - Melida Zarate RT(R) - 07/31/2024 6:52 AM EDT Radiology Service Progress Note PATIENT NAME: Saray Corbin DATE OF SERVICE: July 31, 2024 TIME: 6:52 AM PATIENT IDENTITY VERIFICATION COMPLETED USING TWO (2) IDENTIFIERS: Name and Date of confirmedby identification band and Name and Date of obtained from a relative, guardian or prior caregiver.. FALL SCREENING: Has the patient had 2 falls in the last year or 1 fall with injury or currently using an Ambulatory Assistive Device (Walker, Cane, Wheelchair, Crutches, etc.)? Emergency Room Patient: Screened in ED PATIENT GENDER DATA: Assigned male at PATIENT RELEVANT IMPLANT DATA REVIEWED: Not Applicable PATIENT PRESENTS WITH AN IMPLANTABLE OR ATTACHED NURSE DISCHARGE: No RADIOLOGY DEPARTMENT: General X-ray: Exam(s) Completed: Chest X-Ray Pelvis X-Ray: Pelvis General AP PERIPHERAL IV DATA: Not applicable SIGNED BY: RT Kaz(R) July 31, 2024 6:52 AM documented in this encounter Plan of Treatment Scheduled Orders Name Type Priority Associated Diagnoses Orde r Schedule CT BRAIN WO IVCON Radiology Routine Subarachnoid hemorrhage (HCC) Expected: 08/18/2024 (Approximate), Expires: 09/03/2025 documented as of this encounter Procedures Procedure Name Priority Date/Time Associated Diagnosis Comments GLUCOSE, BLOOD (POC) Routine 08/15/2024 12:03 PM EDT COMPLETE BLOOD COUNT Routine 08/15/2024 6:39 AM EDT MAGNESIUM BLD Routine 08/15/2024 6:38 AM EDT PHOSPHORUS INORGANIC Routine 08/15/2024 6:38 AM EDT BASIC METABOLIC PANEL Routine 08/15/2024 6:38 AM EDT GLUCOSE, BLOOD (POC) Routine 08/15/2024 6:09 AM EDT GLUCOSE, BLOOD (POC) Routine 08/14/2024 11:55 PM EDT GLUCOSE, BLOOD (POC) Routine 08/14/2024 5:13 PM EDT GLUCOSE, BLOOD (POC) Routine 08/14/2024 12:06 PM EDT GLUCOSE, BLOOD (POC) Routine 08/14/2024 5:21 AM EDT MAGNESIUM BLD Routine 08/14/2024 5:05 AM EDT PHOSPHORUS INORGANIC Routine 08/14/2024 5:05 AM EDT COMPLETE BLOOD COUNT Routine 08/14/2024 5:05 AM EDT BASIC METABOLIC PANEL Routine 08/14/2024 5:05 AM EDT GLUCOSE, BLOOD (POC) Routine 08/13/2024 11:54 PM EDT GLUCOSE, BLOOD (POC) Routine 08/13/2024 6:22 PM EDT GLUCOSE, BLOOD (POC) Routine 08/13/2024 12:09 PM EDT MAGNESIUM BLD Routine 08/13/2024 6:10 AM EDT PHOSPHORUS INORGANIC Routine 08/13/2024 6:10 AM EDT COMPLETE BLOOD COUNT Routine 08/13/2024 6:10 AM EDT BASIC METABOLIC PANEL Routine 08/13/2024 6:10 AM EDT GLUCOSE, BLOOD (POC) Routine 08/13/2024 5:47 AM EDT GLUCOSE, BLOOD (POC) Routine 08/13/2024 12:25 AM EDT GLUCOSE, BLOOD (POC) Routine 08/12/2024 5:53 PM EDT GLUCOSE, BLOOD (POC) Routine 08/12/2024 12:06 PM EDT MAGNESIUM BLD STAT 08/12/2024 7:30 AM EDT PHOSPHORUS INORGANIC STAT 08/12/2024 7:30 AM EDT COMPREHENSIVE METABOLIC PANEL STAT 08/12/2024 7:30 AM EDT COMPLETE BLOOD COUNT Routine 08/12/2024 6:45 AM EDT GLUCOSE, BLOOD (POC) Routine 08/12/2024 5:50 AM EDT GLUCOSE, BLOOD (POC) Routine 08/11/2024 11:50 PM EDT GLUCOSE, BLOOD (POC) Routine 08/11/2024 6:01 PM EDT GLUCOSE, BLOOD (POC) Routine 08/11/2024 12:12 PM EDT GLUCOSE, BLOOD (POC) Routine 08/11/2024 5:59 AM EDT COMPLETE BLOOD COUNT Routine 08/11/2024 5:13 AM EDT GLUCOSE, BLOOD (POC) Routine 08/11/2024 12:24 AM EDT GLUCOSE, BLOOD (POC) Routine 08/10/2024 6:04 PM EDT GLUCOSE, BLOOD (POC) Routine 08/10/2024 12:16 PM EDT MAGNESIUM BLD Routine 08/10/2024 6:09 AM EDT RENAL FUNCTION PANEL Routine 08/10/2024 6:09 AM EDT COMPLETE BLOOD COUNT Routine 08/10/2024 6:09 AM EDT GLUCOSE, BLOOD (POC) Routine 08/10/2024 6:08 AM EDT GLUCOSE, BLOOD (POC) Routine 08/10/2024 12:01 AM EDT EPIL EEG BEM - CONTINUOUS BEDSIDE W/VIDEO INCLUDES PORTABLE EEG READ Routine 08/10/2024 12:00 AM EDT GLUCOSE, BLOOD (POC) Routine 08/09/2024 6:00 PM EDT VITAMIN B1 (THIAMINE), WHOLE BLOOD Routine 08/09/2024 12:34 PM EDT VITAMIN B12 BLOOD Routine 08/09/2024 12: 34 PM EDT TSH BLD Routine 08/09/2024 12:34 PM EDT FOLATE SERUM Routine 08/09/2024 12:34 PM EDT AMMONIA BLD Routine 08/09/2024 12:34 PM EDT GLUCOSE, BLOOD (POC) Routine 08/09/2024 12:29 PM EDT PHOSPHORUS INORGANIC STAT 08/09/2024 11:01 AM EDT GLUCOSE, BLOOD (POC) Routine 08/09/2024 6:44 AM EDT MAGNESIUM BLD Routine 08/09/2024 4:48 AM EDT RENAL FUNCTION PANEL Routine 08/09/2024 4:48 AM EDT COMPLETE BLOOD COUNT Routine 08/09/2024 4:48 AM EDT GLUCOSE, BLOOD (POC) Routine 08/09/2024 12:46 AM EDT EPIL EEG BEM - CONTINUOUS BEDSIDE W/VIDEO INCLUDES PORTABLE EEG READ Routine 08/09/2024 12:00 AM EDT URINALYSIS, REFLEX MICROSCOPIC Routine 08/08/2024 6:14 PM EDT BACTERIAL CULTURE, URINE Routine 08/08/2024 6:14 PM EDT GLUCOSE, BLOOD (POC) Routine 08/08/2024 6:06 PM EDT COMPLETE BLOOD COUNT Routine 08/08/2024 4:56 PM EDT GLUCOSE, BLOOD (POC) Routine 08/08/2024 11:[address] BRAIN WO IVCON STAT 08/08/2024 10: 41 AM EDT GLUCOSE, BLOOD (POC) Routine 08/08/2024 6:21 AM EDT MAGNESIUM BLD Routine 08/08/2024 4:48 AM EDT RENAL FUNCTION PANEL Routine 08/08/2024 4:48 AM EDT OSMOLALITY BLD Routine 08/08/2024 4:48 AM EDT GLUCOSE, BLOOD (POC) Routine 08/08/2024 1:14 AM EDT EPIL EEG BEM - CONTINUOUS BEDSIDE W/VIDEO INCLUDES PORTABLE EEG READ Routine 08/08/2024 12:00 AM EDT GLUCOSE, BLOOD (POC) Routine 08/07/2024 5:48 PM EDT GLUCOSE, BLOOD (POC) Routine 08/07/2024 12:07 PM EDT MAGNESIUM BLD STAT 08/07/2024 11:11 AM EDT RENAL FUNCTION PANEL STAT 08/07/2024 11:11 AM EDT COMPLETE BLOOD COUNT Routine 08/07/2024 7:29 AM EDT GLUCOSE, BLOOD (POC) Routine 08/07/2024 5:32 AM EDT EPIL EEG BEDSIDE/PORTABLE - 20 MINUTE ONLY W/VIDEO 08/07/2024 12:00 AM EDT EPIL EEG BEDSIDE/PORTABLE - 20 MINUTE ONLY W/VIDEO Routine 08/07/2024 12:00 AM EDT EPIL EEG BEM - CONTINUOUS BEDSIDE W/VIDEO INCLUDES PORTABLE EEG READ Routine 08/07/2024 12:00 AM EDT GLUCOSE, BLOOD (POC) Routine 08/06/2024 11:55 PM EDT GLUCOSE, BLOOD (POC) Routine 08/06/2024 6:07 PM EDT SODIUM RANDOM URINE Routine 08/06/2024 2 :52 PM EDT OSMOLALITY URINE Routine 08/06/2024 2:52 PM EDT GLUCOSE, BLOOD (POC) Routine 08/06/2024 12:[address] BRAIN WO IVCON STAT 08/06/2024 11: 02 AM EDT OSMOLALITY BLD Routine 08/06/2024 8:22 AM EDT MAGNESIUM BLD Routine 08/06/2024 7:42 AM EDT RENAL FUNCTION PANEL Routine 08/06/2024 7:42 AM EDT GLUCOSE, BLOOD (POC) Routine 08/06/2024 6:38 AM EDT GLUCOSE, BLOOD (POC) Routine 08/06/2024 6:09 AM EDT GLUCOSE, BLOOD (POC) Routine 08/05/2024 11:59 PM EDT MAGNESIUM BLD Routine 08/05/2024 7:59 PM EDT RENAL FUNCTION PANEL Routine 08/05/2024 7:59 PM EDT GLUCOSE, BLOOD (POC) Routine 08/05/2024 5:57 PM EDT XR MODIFIED BARIUM SWALLOW W SPEECH THERAPY Routine 08/05/2024 2:01 PM EDT GLUCOSE, BLOOD (POC) Routine 08/05/2024 12:19 PM EDT ECG COMPLETE Routine 08/05/2024 8:48 AM EDT MAGNESIUM BLD Routine 08/05/2024 6:19 AM EDT RENAL FUNCTION PANEL Routine 08/05/2024 6:19 AM EDT GLUCOSE, BLOOD (POC) Routine 08/05/2024 5:59 AM EDT GLUCOSE, BLOOD (POC) Routine 08/05/2024 12:19 AM EDT GLUCOSE, BLOOD (POC) Routine 08/04/2024 6:15 PM EDT MAGNESIUM BLD Routine 08/04/2024 5:40 PM EDT RENAL FUNCTION PANEL Routine 08/04/2024 5:40 PM EDT GLUCOSE, BLOOD (POC) Routine 08/04/2024 12:22 PM EDT ECG COMPLETE Routine 08/04/2024 7:34 AM EDT GLUCOSE, BLOOD (POC) Routine 08/04/2024 5:39 AM EDT MAGNESIUM BLD Routine 08/04/2024 5:23 AM EDT PHOSPHORUS INORGANIC Routine 08/04/2024 5:23 AM EDT COMPLETE BLOOD COUNT Routine 08/04/2024 5:23 AM EDT BASIC METABOLIC PANEL Routine 08/04/2024 5:23 AM EDT GLUCOSE, BLOOD (POC) Routine 08/03/2024 11:47 PM EDT GLUCOSE, BLOOD (POC) Routine 08/03/2024 11:45 PM EDT GLUCOSE, BLOOD (POC) Routine 08/03/2024 5:53 PM EDT XR ABDOMEN 1V SUPINE Routine 08/03/2024 2:43 PM EDT XR CHEST 1V FRONTAL STAT 08/03/2024 2 :43 PM EDT FEEDING TUBE PLACEMENT PROCEDURE (W NOTE) Routine 08/03/2024 1:54 PM EDT Subarachnoid hemorrhage (HCC) GLUCOSE, BLOOD (POC) Routine 08/03/2024 12:05 PM EDT GLUCOSE, BLOOD (POC) Routine 08/03/2024 7:33 AM EDT GLUCOSE, BLOOD (POC) Routine 08/03/2024 6:38 AM EDT GLUCOSE, BLOOD (POC) Routine 08/03/2024 6:11 AM EDT GLUCOSE, BLOOD (POC) Routine 08/03/2024 6:08 AM EDT GLUCOSE, BLOOD (POC) Routine 08/03/2024 6:04 AM EDT MAGNESIUM BLD STAT 08/03/2024 4:20 AM EDT PHOSPHORUS INORGANIC Add-on 08/03/2024 4:20 AM EDT COMPLETE BLOOD COUNT STAT 08/03/2024 4:20 AM EDT BASIC METABOLIC PANEL STAT 08/03/2024 4:20 AM EDT GLUCOSE, BLOOD (POC) Routine 08/02/2024 11:46 PM EDT GLUCOSE, BLOOD (POC) Routine 08/02/2024 7:01 PM EDT GLUCOSE, BLOOD (POC) Routine 08/02/2024 12:05 PM EDT GLUCOSE, BLOOD (POC) Routine 08/02/2024 5:32 AM EDT MAGNESIUM BLD STAT 08/02/2024 5:00 AM EDT COMPLETE BLOOD COUNT STAT 08/02/2024 5:00 AM EDT BASIC METABOLIC PANEL STAT 08/02/2024 5:00 AM EDT EPIL EEG BEM - CONTINUOUS BEDSIDE W/VIDEO INCLUDES PORTABLE EEG READ Routine 08/02/2024 12:00 AM EDT GLUCOSE, BLOOD (POC) Routine 08/01/2024 11:22 PM EDT MRI BRAIN WO/W IVCON Routine 08/01/2024 9:06 PM EDT GLUCOSE, BLOOD (POC) Routine 08/01/2024 5:11 PM EDT GLUCOSE, BLOOD (POC) Routine 08/01/2024 11:37 AM EDT LVEF ECHO Routine 08/01/2024 7:25 AM EDT ECHO MICKI 08/01/2024 7:[address] BRAIN WO IVCON STAT 08/01/2024 6:3 8 AM EDT GLUCOSE, BLOOD (POC) Routine 08/01/2024 5:[address] CHEST WO IVCON STAT 08/01/2024 5:[address] FACIAL BONE/MONICA WO IVCON STAT 08/01/2024 5:01 AM EDT MAGNESIUM BLD STAT 08/01/2024 4:42 AM EDT PHOSPHORUS INORGANIC STAT 08/01/2024 4:42 AM EDT COMPLETE BLOOD COUNT STAT 08/01/2024 4:42 AM EDT BASIC METABOLIC PANEL STAT 08/01/2024 4:42 AM EDT EPIL EEG BEM - CONTINUOUS BEDSIDE W/VIDEO INCLUDES PORTABLE EEG READ Routine 08/01/2024 12:00 AM EDT GLUCOSE, BLOOD (POC) Routine 07/31/2024 11:50 PM EDT US CAROTID BILATERAL Routine 07/31/2024 6:53 PM EDT GLUCOSE, BLOOD (POC) Routine 07/31/2024 6:00 PM EDT STAPHYLOCOCCUS AUREUS & MRSA SCREEN, PCR, NASAL STAT 07/31/2024 11:56 AM EDT GLUCOSE, BLOOD (POC) Routine 07/31/2024 11:[address] BRAIN WO IVCON STAT 07/31/2024 10: 43 AM EDT URINALYSIS, WITH MICROSCOPIC STAT 07/31/2024 8:23 AM EDT TOX SCREEN ROUT UR STAT 07/31/2024 8: 23 AM EDT XR HUMERUS 2V AP/LAT RIGHT STAT 07/31/2024 7:42 AM EDT XR FOREARM GENERAL 2V AP/LAT RIGHT STAT 07/31/2024 7:42 AM EDT XR ELBOW GENERAL 2V AP/LAT RIGHT STAT 07/31/2024 7:42 AM EDT PROTHROMBIN TIME STAT 07/31/2024 7:00 AM EDT LIPASE BLD STAT 07/31/2024 7:00 AM EDT COMPREHENSIVE METABOLIC PANEL STAT 07/31/2024 7:00 AM EDT COMPLETE BLOOD COUNT STAT 07/31/2024 7:00 AM EDT ALCOHOL/ETHANOL BLD STAT 07/31/2024 7 :00 AM EDT ACTIVATED PTT STAT 07/31/2024 7:00 AM EDT TYPE + SCREEN STAT 07/31/2024 7:00 AM EDT XR PELVIS 1V AP STAT 07/31/2024 6:56 AM EDT XR CHEST 1V FRONTAL PORT STAT 07/31/2024 6:56 AM EDT EPIL EEG BEDSIDE/PORTABLE - 20 MINUTE ONLY W/VIDEO 07/31/2024 12:00 AM EDT EPIL EEG BEM - CONTINUOUS BEDSIDE W/VIDEO INCLUDES PORTABLE EEG READ Routine 07/31/2024 12:00 AM EDT documented in this encounter Results * (ABNORMAL) GLUCOSE, BLOOD (POC) (08/15/2024 12:03 PM EDT) [facility] Glucose, Point of Care 176(A) 74 - 99 mg/dL [facility] Comment: Location:[facility], [address], [place], [address] The Accu-Chek Inform II glucose meter has not been approved for testing on patients receiving intensive medical intervention or therapy and results from this point of care glucose test should not be used for patient management decisions in these cases. Inaccurate results may also occur from other interfering factors, such as N-acetylcysteine (blood concentrations of greater than 5mg/dL), galactose, extremes of hematocrit (<10 or >65), or high doses of ascorbic acid (vitamin C) greater than 3mg/dL. Consider alternate testing mechanisms (e.g. core lab, blood gas instrument) in the above situations. 08/15/2024 12:0 3 PM EDT us Dylon Ochoa MD POC TESTING Final Result [facility] POINT OF CARE [facility] [address] [place], [place] * (ABNORMAL) COMPLETE BLOOD COUNT (08/15/2024 6:39 AM EDT) [facility] WBC 7.66 3.70 - 11.00 k/uL 08/15/2024 6:58 AM EDT [facility] RBC 4.44 4.20 - 6.00 m/uL 08/15/2024 6:58 AM EDT [facility] Hemoglobin 9.5(L) 13.0 - 17.0 g/dL 08/15/2024 6:58 AM EDT [facility] Hematocrit 33.1(L) 39.0 - 51.0 % 08/15/2024 6:58 AM EDT [facility] MCV 74.5(L) 80.0 - 100.0 fL 08/15/2024 6:58 AM EDT [facility] MCH 21.4(L) 26.0 - 34.0 pg 08/15/2024 6:58 AM EDT [facility] MCHC 28.7(L) 30.5 - 36.0 g/dL 08/15/2024 6:58 AM EDT [facility] RDW-CV 21.5(H) 11.5 - 15.0 % 08/15/2024 6:58 AM EDT [facility] Platelet Count 880(H) 150 - 400 k/uL 08/15/2024 6:58 AM EDT [facility] MPV 9.9 9.0 - 12.7 fL 08/15/2024 6:58 AM EDT [facility] Absolute nRBC <0.01 <0.01 k/uL 08/15/2024 6:58 AM EDT [facility] Blood BLOOD SPECIMEN / Unknown Venipuncture / Unknown 08/15/2024 6:39 AM EDT 08/15/2024 6:48 AM EDT Jenna Vazquez APRN.[facility] Final Result Performing Organization Address [facility]/ZIP Co de Phone Number [facility] [address] [place] [address], [place] * PHOSPHORUS INORGANIC (08/15/2024 6:38 AM EDT) Phosphorus 4.1 2.7 - 4.8 mg/dL 08/15/2024 7:34 AM EDT [facility] Blood BLOOD SPECIMEN / Unknown Venipuncture / Unknown 08/15/2024 6:38 AM EDT 08/15/2024 6:58 AM EDT Jenna Vazquez APRN.[facility] Final Result [facility] [address] [place] [address], [place] * MAGNESIUM (08/15/2024 6:38 AM EDT) Magnesium 1.7 1.7 - 2.3 mg/dL 08/15/2024 7:34 AM EDT [facility] Blood BLOOD SPECIMEN / Unknown Venipuncture / Unknown 08/15/2024 6:38 AM EDT 08/15/2024 6:58 AM EDT us Jenna Vazquez AUT[employer] CLEANER.[facility] Final Result [facility] [address] [place] [address], * (ABNORMAL) BASIC METABOLIC PANEL (08/15/2024 6:38 AM EDT) Glucose 132(H) 74 - 99 mg/dL 08/15/2024 7:34 AM [facility] Comment: The [place] [employer] (ADA) provides guidance for cutoff values for fasting glucose and random glucose. The ADA defines fasting as no caloric intake for at least 8 hours. Fasting plasma glucose results between 100 to 125 mg/dL indicate increased risk for diabetes (prediabetes). Fasting plasma glucose results greater than or equal to 126 mg/dL meet the criteria for diagnosis of diabetes. In the absence of unequivocal hyperglycemia, results should be confirmed by repeat testing. In a patient with classic symptoms of hyperglycemia or hyperglycemic crisis, random plasma glucose results greater than or equal to 200 mg/dL meet the criteria for diagnosis of diabetes. Reference: Standards of Medical Care in Diabetes 2016, [place] [employer]. Diabetes Care. 2016.39(Suppl 1). BUN 23 9 - 24 mg/dL 08/15/2024 7:34 AM [facility] Creatinine 0.55(L) 0.73 - 1.22 mg/dL 08/15/2024 7:34 AM [facility] Sodium 137 136 - 144 mmol/L 08/15/2024 7:34 AM [facility] Potassium 4.6 3.7 - 5.1 mmol/L 08/15/2024 7:34 AM EDT [facility] Chloride 101 98 - 107 mmol/L 08/15/2024 7:34 AM [facility] CO2 20(L) 22 - 30 mmol/L 08/15/2024 7:34 AM [facility] Anion Gap 16(H) 8 - 15 mmol/L 08/15/2024 7:34 AM [facility] Calcium, Total 9.8 8.5 - 10.2 mg/dL 08/15/2024 7:34 AM [facility] Estimated Glomerular Filtration Rate 111 >=60 mL/min/1. 73m 08/15/2024 7:34 AM EDT [facility] Comment:Estimated Glomerular Filtration Rate (eGFR) is calculated using the 2020 CKD-EPI creatinine equation. This equation utilizes serum creatinine, sex, and age as parameters. The creatinine assay has traceable calibration to isotope dilution- mass spectrometry. Refer to KDIGO guidelines for clinical interpretation. In patients with unstable renal function, e.g. those with acute kidney injury, the eGFR may not accurately reflect actual GFR. Blood BLOOD SPECIMEN / Unknown Venipuncture / Unknown 08/15/2024 6:38 AM EDT 08/15/2024 6:58 AM EDT Jenna Vazquez APRN.[facility] Final Result Performing Organization Address [facility] [place] [address], * (ABNORMAL) GLUCOSE, BLOOD (POC) (08/15/2024 6:09 AM EDT) [facility], Point of Care 156(A) 74 - 99 mg/dL [facility] Comment: Location:[facility], [address] [place] [address], [facility] The Accu-Chek Inform II glucose meter has not been approved for testing on patients receiving intensive medical intervention or therapy and results from this point of care glucose test should not be used for patient management decisions in these cases. Inaccurate results may also occur from other interfering factors, such as N-acetylcysteine (blood concentrations of greater than 5mg/dL), galactose, extremes of hematocrit (<10 or >65), or high doses of ascorbic acid (vitamin C) greater than 3mg/dL. Consider alternate testing mechanisms (e.g. core lab, blood gas instrument) in the above situations. 08/15/2024 6:09 AM EDT us Dylon Ochoa MD POC TESTING Final Result Performing Organization Address [facility] Co de Phone Number [facility] POINT OF CARE [address] * (ABNORMAL) GLUCOSE, BLOOD (POC) (08/14/2024 11:55 PM EDT) Glucose, Point of Care 175(A) 74 - 99 mg/dL [facility] Comment: Location:[facility], [address] [place] [address], [facility] The Accu-Chek Inform II glucose meter has not been approved for testing on patients receiving intensive medical intervention or therapy and results from this point of care glucose test should not be used for patient management decisions in these cases. Inaccurate results may also occur from other interfering factors, such as N-acetylcysteine (blood concentrations of greater than 5mg/dL), galactose, extremes of hematocrit (<10 or >65), or high doses of ascorbic acid (vitamin C) greater than 3mg/dL. Consider alternate testing mechanisms (e.g. core lab, blood gas instrument) in the above situations. 08/14/2024 11:5 5 PM EDT Dylon Ochoa MD POC TESTING Final Result [facility] POINT OF CARE [address] * (ABNORMAL) GLUCOSE, BLOOD (POC) (08/14/2024 5:13 PM EDT) [facility] Glucose, Point of Care 135(A) 74 - 99 mg/dL [facility] Comment: Location:[facility], [address] [place] [address], [facility] The Accu-Chek Inform II glucose meter has not been approved for testing on patients receiving intensive medical intervention or therapy and results from this point of care glucose test should not be used for patient management decisions in these cases. Inaccurate results may also occur from other interfering factors, such as N-acetylcysteine (blood concentrations of greater than 5mg/dL), galactose, extremes of hematocrit (<10 or >65), or high doses of ascorbic acid (vitamin C) greater than 3mg/dL. Consider alternate testing mechanisms (e.g. core lab, blood gas instrument) in the above situations. 08/14/2024 5:13 PM EDT us Dylon Ochoa MD POC TESTING Final Result Performing Organization Address [facility] Co de Phone Number [facility] POINT OF [facility] [address] [place], [place] * (ABNORMAL) GLUCOSE, BLOOD (POC) (08/14/2024 12:06 PM EDT) Glucose, Point of Care 157(A) 74 - 99 mg/dL [facility] Comment: Location:[facility], [address] [place] [address], [facility] The Accu-Chek Inform II glucose meter has not been approved for testing on patients receiving intensive medical intervention or therapy and results from this point of care glucose test should not be used for patient management decisions in these cases. Inaccurate results may also occur from other interfering factors, such as N-acetylcysteine (blood concentrations of greater than 5mg/dL), galactose, extremes of hematocrit (<10 or >65), or high doses of ascorbic acid (vitamin C) greater than 3mg/dL. Consider alternate testing mechanisms (e.g. core lab, blood gas instrument) in the above situations. 08/14/2024 12:0 6 PM EDT Dylon Ochoa MD POC TESTING Final Result Performing Organization Address [facility] Co de Phone Number [facility] OF CARE [facility] [address] [place], [place] * (ABNORMAL) GLUCOSE, BLOOD (POC) (08/14/2024 5:21 AM EDT) Glucose, Point of Care 170(A) 74 - 99 mg/dL [facility] Comment: Location:[facility], [address] [place] [address], [facility] The Accu-Chek Inform II glucose meter has not been approved for testing on patients receiving intensive medical intervention or therapy and results from this point of care glucose test should not be used for patient management decisions in these cases. Inaccurate results may also occur from other interfering factors, such as N-acetylcysteine (blood concentrations of greater than 5mg/dL), galactose, extremes of hematocrit (<10 or >65), or high doses of ascorbic acid (vitamin C) greater than 3mg/dL. Consider alternate testing mechanisms (e.g. core lab, blood gas instrument) in the above situations. 08/14/2024 5:21 AM EDT Dylon Ochoa MD POC TESTING Final Result Performing Organization Address [facility]/ZIP Co de Phone Number [facility] POINT OF CARE [facility] [id number] [place] [address] * PHOSPHORUS INORGANIC (08/14/2024 5:05 AM EDT) Phosphorus 4.0 2.7 - 4.8 mg/dL 08/14/2024 6:20 AM EDT [facility] Blood BLOOD SPECIMEN / Unknown Venipuncture / Unknown 08/14/2024 5:05 AM EDT 08/14/2024 5:50 AM EDT Jenna Vazquez APRN.[facility] Final Result Performing Organization Address [facility] de Phone Number [facility] [id number] [place] [address], * MAGNESIUM (08/14/2024 5:05 AM EDT) Magnesium 2.1 1.7 - 2.3 mg/dL 08/14/2024 6:20 AM EDT [facility] Blood BLOOD SPECIMEN / Unknown Venipuncture / Unknown 08/14/2024 5:05 AM EDT 08/14/2024 5:50 AM EDT Jenna Vazquez AUTO CLEANER[employer] Final Result Performing Organization Address [facility] de Phone Number [facility] [address] [place] [address], * (ABNORMAL) BASIC METABOLIC PANEL (08/14/2024 5:05 AM EDT) Glucose 169(H) 74 - 99 mg/dL 08/14/2024 6:20 AM EDT [facility] Comment: The [place] Diabetes [employer] (ADA) provides guidance for cutoff values for fasting glucose and random glucose. The ADA defines fasting as no caloric intake for at least 8 hours. Fasting plasma glucose results between 100 to 125 mg/dL indicate increased risk for diabetes (prediabetes). Fasting plasma glucose results greater than or equal to 126 mg/dL meet the criteria for diagnosis of diabetes. In the absence of unequivocal hyperglycemia, results should be confirmed by repeat testing. In a patient with classic symptoms of hyperglycemia or hyperglycemic crisis, random plasma glucose results greater than or equal to 200 mg/dL meet the criteria for diagnosis of diabetes. Reference: Standards of Medical Care in Diabetes 2016, [place] [employer]. Diabetes Care. 2016.39(Suppl 1). BUN 24 9 - 24 mg/dL 08/14/2024 6:20 AM [facility] Creatinine 0.55(L) 0.73 - 1.22 mg/dL 08/14/2024 6:20 AM [facility] Sodium 138 136 - 144 mmol/L 08/14/2024 6:20 AM [facility] Potassium 3.8 3.7 - 5.1 mmol/L 08/14/2024 6:20 AM [facility] Chloride 101 98 - 107 mmol/L 08/14/2024 6:20 AM [facility] CO2 25 22 - 30 mmol/L 08/14/2024 6:20 AM [facility] Anion Gap 12 8 - 15 mmol/L 08/14/2024 6:20 AM [facility] Calcium, Total 9.4 8.5 - 10.2 mg/dL 08/14/2024 6:20 AM [facility] Estimated Glomerular Filtration Rate 111 >=60 mL/min/1. 73m 08/14/2024 6:20 AM [facility] Comment:Estimated Glomerular Filtration Rate (eGFR) is calculated using the 2020 CKD-EPI creatinine equation. This equation utilizes serum creatinine, sex, and age as parameters. The creatinine assay has traceable calibration to isotope dilution- mass spectrometry. Refer to KDIGO guidelines for clinical interpretation. In patients with unstable renal function, e.g. those with acute kidney injury, the eGFR may not accurately reflect actual GFR. Blood BLOOD SPECIMEN / Unknown Venipuncture / Unknown 08/14/2024 5:05 AM EDT 08/14/2024 5:50 AM EDT Jenna Kus [employer] Final Result [facility] [address] [place] [address], * (ABNORMAL) COMPLETE BLOOD COUNT (08/14/2024 5:05 AM EDT) [facility] WBC 9.15 3.70 - 11.00 k/uL 08/14/2024 5:48 AM EDT [facility] RBC 3.98(L) 4.20 - 6.00 m/uL 08/14/2024 5:48 AM EDT [facility] Hemoglobin 8.7(L) 13.0 - 17.0 g/dL 08/14/2024 5:48 AM EDT [facility] Hematocrit 29.2(L) 39.0 - 51.0 % 08/14/2024 5:48 AM EDT [facility] MCV 73.4(L) 80.0 - 100.0 fL 08/14/2024 5:48 AM EDT [facility] MCH 21.9(L) 26.0 - 34.0 pg 08/14/2024 5:48 AM EDT [facility] MCHC 29.8(L) 30.5 - 36.0 g/dL 08/14/2024 5:48 AM EDT [facility] RDW-CV 21.3(H) 11.5 - 15.0 % 08/14/2024 5:48 AM EDT [facility] Platelet Count 881(H) 150 - 400 k/uL 08/14/2024 5:48 AM EDT [facility] MPV 10.0 9.0 - 12.7 fL 08/14/2024 5:48 AM EDT [facility] Absolute nRBC <0.01 <0.01 k/uL 08/14/2024 5:48 AM EDT [facility] Blood BLOOD SPECIMEN / Unknown Venipuncture / Unknown 08/14/2024 5:05 AM EDT 08/14/2024 5:40 AM EDT Jenna George [employer] Final Result Performing Organization Address City/[facility]/ZIP Co de Phone Number [facility] [address] [place] [address], * (ABNORMAL) GLUCOSE, BLOOD (POC) (08/13/2024 11:54 PM EDT) Glucose, Point of Care 183(A) 74 - 99 mg/dL [facility] Comment: Location:[facility], [address] [place], [place], [facility] The Accu-Chek Inform II glucose meter has not been approved for testing on patients receiving intensive medical intervention or therapy and results from this point of care glucose test should not be used for patient management decisions in these cases. Inaccurate results may also occur from other interfering factors, such as N-acetylcysteine (blood concentrations of greater than 5mg/dL), galactose, extremes of hematocrit (<10 or >65), or high doses of ascorbic acid (vitamin C) greater than 3mg/dL. Consider alternate testing mechanisms (e.g. core lab, blood gas instrument) in the above situations. 08/13/2024 11:5 4 PM EDT us Dylon Ochoa MD POC TESTING Final Result [facility] POINT OF CARE [facility] [id number] [place] [address] * (ABNORMAL) GLUCOSE, BLOOD (POC) (08/13/2024 6:22 PM EDT) Glucose, Point of Care 144(A) 74 - 99 mg/dL [facility] Comment: [facility], [id number] [place] [place], [facility] The Accu-Chek Inform II glucose meter has not been approved for testing on patients receiving intensive medical intervention or therapy and results from this point of care glucose test should not be used for patient management decisions in these cases. Inaccurate results may also occur from other interfering factors, such as N-acetylcysteine (blood concentrations of greater than 5mg/dL), galactose, extremes of hematocrit (<10 or >65), or high doses of ascorbic acid (vitamin C) greater than 3mg/dL. Consider alternate testing mechanisms (e.g. core lab, blood gas instrument) in the above situations. 08/13/2024 6:22 PM EDT Dylon Ochoa MD POC TESTING Final Result Performing Organization Address [facility] [place] Hospital/[facility] Co de Phone Number [facility] [phone] [place] [address] * (ABNORMAL) GLUCOSE, BLOOD (POC) (08/13/2024 12:09 PM EDT) Glucose, Point of Care 137(A) 74 - 99 mg/dL [facility] Comment: Location:[facility], [id number] [place] [address], [id number] The Accu-Chek Inform II glucose meter has not been approved for testing on patients receiving intensive medical intervention or therapy and results from this point of care glucose test should not be used for patient management decisions in these cases. Inaccurate results may also occur from other interfering factors, such as N-acetylcysteine (blood concentrations of greater than 5mg/dL), galactose, extremes of hematocrit (<10 or >65), or high doses of ascorbic acid (vitamin C) greater than 3mg/dL. Consider alternate testing mechanisms (e.g. core lab, blood gas instrument) in the above situations. 08/13/2024 12:0 9 PM EDT Dylon Ochoa MD POC TESTING Final Result Performing Organization Address [facility] Co de Phone Number [facility] [id number] [place] [address] * PHOSPHORUS INORGANIC (08/13/2024 6:10 AM EDT) Phosphorus 4.7 2.7 - 4.8 mg/dL 08/13/2024 7:42 AM EDT [facility] Blood BLOOD SPECIMEN / Unknown Venipuncture / Unknown 08/13/2024 6:10 AM EDT 08/13/2024 7:16 AM EDT Jenna Vazquez [employer] Final Result Performing Organization Address [facility] Co de Phone Number [facility] [address] [place] [address], [place] * (ABNORMAL) MAGNESIUM (08/13/2024 6:10 AM EDT) Magnesium 1.6(L) 1.7 - 2.3 mg/dL 08/13/2024 7:42 AM EDT [facility] Blood BLOOD SPECIMEN / Unknown Venipuncture / Unknown 08/13/2024 6:10 AM EDT 08/13/2024 7:16 AM EDT Jenna Vazquez [employer] Final Result [facility] [address] [place] [address], * (ABNORMAL) BASIC METABOLIC PANEL (08/13/2024 6:10 AM EDT) Glucose 117(H) 74 - 99 mg/dL 08/13/2024 7:42 AM EDT [facility] Comment: The [place] [employer] (ADA) provides guidance for cutoff values for fasting glucose and random glucose. The ADA defines fasting as no caloric intake for at least 8 hours. Fasting plasma glucose results between 100 to 125 mg/dL indicate increased risk for diabetes (prediabetes). Fasting plasma glucose results greater than or equal to 126 mg/dL meet the criteria for diagnosis of diabetes. In the absence of unequivocal hyperglycemia, results should be confirmed by repeat testing. In a patient with classic symptoms of hyperglycemia or hyperglycemic crisis, random plasma glucose results greater than or equal to 200 mg/dL meet the criteria for diagnosis of diabetes. Reference: Standards of Medical Care in Diabetes 2016, [place] [employer]. Diabetes Care. 2016.39(Suppl 1). BUN 21 9 - 24 mg/dL 08/13/2024 7:42 AM EDT [facility] Creatinine 0.50(L) 0.73 - 1.22 mg/dL 08/13/2024 7:42 AM EDT [facility] Sodium 139 136 - 144 mmol/L 08/13/2024 7:42 AM EDT [facility] Potassium 3.9 3.7 - 5.1 mmol/L 08/13/2024 7:42 AM EDT [facility] Chloride 101 98 - 107 mmol/L 08/13/2024 7:42 AM EDT [facility] CO2 23 22 - 30 mmol/L 08/13/2024 7:42 AM EDT [facility] Anion Gap 15 8 - 15 mmol/L 08/13/2024 7:42 AM EDT [facility] Calcium, Total 9.7 8.5 - 10.2 mg/dL 08/13/2024 7:42 AM EDT [facility] Estimated Glomerular Filtration Rate 115 >=60 mL/min/1. 73m 08/13/2024 7:42 AM EDT [facility] Comment:Estimated Glomerular Filtration Rate (eGFR) is calculated using the 2020 CKD-EPI creatinine equation. This equation utilizes serum creatinine, sex, and age as parameters. The creatinine assay has traceable calibration to isotope dilution- mass spectrometry. Refer to KDIGO guidelines for clinical interpretation. In patients with unstable renal function, e.g. those with acute kidney injury, the eGFR may not accurately reflect actual GFR. Blood BLOOD SPECIMEN / Unknown Venipuncture / Unknown 08/13/2024 6:10 AM EDT 08/13/2024 7:16 AM EDT us Jenna Vazquez [employer] Final Result [facility] [address] [place] [address], * (ABNORMAL) COMPLETE BLOOD COUNT (08/13/2024 6:10 AM EDT) WBC 7.92 3.70 - 11.00 k/uL 08/13/2024 7:18 [facility] RBC 4.20 4.20 - 6.00 m/uL 08/13/2024 7:18 AM [facility] Hemoglobin 9.0(L) 13.0 - 17.0 g/dL 08/13/2024 7:18 AM [facility] Hematocrit 30.3(L) 39.0 - 51.0 % 08/13/2024 7:18 AM [facility] MCV 72.1(L) 80.0 - 100.0 fL 08/13/2024 7:18 AM [facility] MCH 21.4(L) 26.0 - 34.0 pg 08/13/2024 7:18 AM EDT [facility] MCHC 29.7(L) 30.5 - 36.0 g/dL 08/13/2024 7:18 AM EDT [facility] RDW-CV 21.4(H) 11.5 - 15.0 % 08/13/2024 7:18 AM EDT [facility] Platelet Count 877(H) 150 - 400 k/uL 08/13/2024 7:18 AM EDT [facility] MPV 10.2 9.0 - 12.7 fL 08/13/2024 7:18 AM EDT [facility] Absolute nRBC <0.01 <0.01 k/uL 08/13/2024 7:18 AM EDT [facility] Blood BLOOD SPECIMEN / Unknown Venipuncture / Unknown 08/13/2024 6:10 AM EDT 08/13/2024 7:07 AM EDT Jenna Vazquez APRN.[facility] [place] [address], * (ABNORMAL) GLUCOSE, BLOOD (POC) (08/13/2024 5:47 AM EDT) [facility] Glucose, Point of Care 127(A) 74 - 99 mg/dL [facility] Comment: Location:[facility], [address] [place] [address] The Accu-Chek Inform II glucose meter has not been approved for testing on patients receiving intensive medical intervention or therapy and results from this point of care glucose test should not be used for patient management decisions in these cases. Inaccurate results may also occur from other interfering factors, such as N-acetylcysteine (blood concentrations of greater than 5mg/dL), galactose, extremes of hematocrit (<10 or >65), or high doses of ascorbic acid (vitamin C) greater than 3mg/dL. Consider alternate testing mechanisms (e.g. core lab, blood gas instrument) in the above situations. 08/13/2024 5:47 AM EDT us Dylon Ochoa MD POC TESTING Final Result Performing Organization Address [facility] Co de Phone Number [facility] POINT OF [facility] [address] [place], [place] * (ABNORMAL) GLUCOSE, BLOOD (POC) (08/13/2024 12:25 AM EDT) Glucose, Point of Care 180(A) 74 - 99 mg/dL [facility] Comment: Location:[facility], [address] [place] [address], [facility] The Accu-Chek Inform II glucose meter has not been approved for testing on patients receiving intensive medical intervention or therapy and results from this point of care glucose test should not be used for patient management decisions in these cases. Inaccurate results may also occur from other interfering factors, such as N-acetylcysteine (blood concentrations of greater than 5mg/dL), galactose, extremes of hematocrit (<10 or >65), or high doses of ascorbic acid (vitamin C) greater than 3mg/dL. Consider alternate testing mechanisms (e.g. core lab, blood gas instrument) in the above situations. 08/13/2024 12:2 5 AM EDT us Dylon Ochoa MD POC TESTING Final Result Performing Organization Address [facility] Co de Phone Number [facility] [address] [place], [place] * (ABNORMAL) GLUCOSE, BLOOD (POC) (08/12/2024 5:53 PM EDT) Glucose, Point of Care 190(A) 74 - 99 mg/dL [facility] Comment: Location:[facility], [address] [place] [address], [facility] The Accu-Chek Inform II glucose meter has not been approved for testing on patients receiving intensive medical intervention or therapy and results from this point of care glucose test should not be used for patient management decisions in these cases. Inaccurate results may also occur from other interfering factors, such as N-acetylcysteine (blood concentrations of greater than 5mg/dL), galactose, extremes of hematocrit (<10 or >65), or high doses of ascorbic acid (vitamin C) greater than 3mg/dL. Consider alternate testing mechanisms (e.g. core lab, blood gas instrument) in the above situations. 08/12/2024 5:53 PM EDT Dylon Ochoa MD POC TESTING Final Result Performing Organization Address [facility] Co de Phone Number [facility] [address] [place], [place] * (ABNORMAL) GLUCOSE, BLOOD (POC) (08/12/2024 12:06 PM EDT) Glucose, Point of Care 167(A) 74 - 99 mg/dL [facility] Comment: Location:[facility], [id number] [place] [address], [facility] The Accu-Chek Inform II glucose meter has not been approved for testing on patients receiving intensive medical intervention or therapy and results from this point of care glucose test should not be used for patient management decisions in these cases. Inaccurate results may also occur from other interfering factors, such as N-acetylcysteine (blood concentrations of greater than 5mg/dL), galactose, extremes of hematocrit (<10 or >65), or high doses of ascorbic acid (vitamin C) greater than 3mg/dL. Consider alternate testing mechanisms (e.g. core lab, blood gas instrument) in the above situations. 08/12/2024 12:0 6 PM EDT Result [facility] Dylon Ochoa MD POC TESTING Final Result Performing Organization Address [facility] Co de Phone Number [facility] [address] [place], [place] * PHOSPHORUS INORGANIC (08/12/2024 7:30 AM EDT) [facility] Signature Phosphorus 4.3 2.7 - 4.8 mg/dL 08/12/2024 8:14 AM EDT [facility] Blood BLOOD SPECIMEN / Unknown Venipuncture / Unknown 08/12/2024 7:30 AM EDT 08/12/2024 7:49 AM EDT Jenna Vazquez [employer] Final Result Performing Organization Address City/[facility]/ZIP Co de Phone Number [facility] [address] [place] [address], * MAGNESIUM (08/12/2024 7:30 AM EDT) Pathologist [facility] Magnesium 1.9 1.7 - 2.3 mg/dL 08/12/2024 8:14 AM EDT [facility] Blood BLOOD SPECIMEN / Unknown Venipuncture / Unknown 08/12/2024 7:30 AM EDT 08/12/2024 7:49 AM EDT Jenna George DAWKINS.[facility] Final Result Performing Organization Address [facility] de Phone Number [facility] [address] [place] [address], * (ABNORMAL) COMPREHENSIVE METABOLIC PANEL (08/12/2024 7:30 AM EDT) Pathologist [facility] Protein, Total 7.8 6.3 - 8.0 g/dL 08/12/2024 8:14 AM EDT [facility] Albumin 3.9 3.9 - 4.9 g/dL 08/12/2024 8:14 AM [facility] Calcium, Total 9.4 8.5 - 10.2 mg/dL 08/12/2024 8:14 AM EDT [facility] Bilirubin, Total 0.2 0.2 - 1.3 mg/dL 08/12/2024 8:14 AM [facility] Alkaline Phosphatase 157(H) 38 - 113 U/L 08/12/2024 8:14 AM EDT [facility] AST 29 14 - 40 U/L 08/12/2024 8:14 AM EDT [facility] ALT 30 10 - 54 U/L 08/12/2024 8:14 AM EDT [facility] Glucose 141(H) 74 - 99 mg/dL 08/12/2024 8:14 AM EDT [facility] Comment: The [place] [employer] (ADA) provides guidance for cutoff values for fasting glucose and random glucose. The ADA defines fasting as no caloric intake for at least 8 hours. Fasting plasma glucose results between 100 to 125 mg/dL indicate increased risk for diabetes (prediabetes). Fasting plasma glucose results greater than or equal to 126 mg/dL meet the criteria for diagnosis of diabetes. In the absence of unequivocal hyperglycemia, results should be confirmed by repeat testing. In a patient with classic symptoms of hyperglycemia or hyperglycemic crisis, random plasma glucose results greater than or equal to 200 mg/dL meet the criteria for diagnosis of diabetes. Reference: Standards of Medical Care in Diabetes 2016, [place] [employer]. Diabetes Care. 2016.39(Suppl 1). BUN 20 9 - 24 mg/dL 08/12/2024 8:14 AM EDT [facility] Creatinine 0.48(L) 0.73 - 1.22 mg/dL 08/12/2024 8:14 AM EDT [facility] Sodium 136 136 - 144 mmol/L 08/12/2024 8:14 AM EDT [facility] Potassium 4.4 3.7 - 5.1 mmol/L 08/12/2024 8:14 AM [facility] Chloride 101 98 - 107 mmol/L 08/12/2024 8:14 AM [facility] CO2 23 22 - 30 mmol/L 08/12/2024 8:14 AM [facility] Anion Gap 12 8 - 15 mmol/L 08/12/2024 8:14 AM [facility] Estimated Glomerular Filtration Rate 116 >=60 mL/min/1. 73m 08/12/2024 8:14 AM [facility] Comment:Estimated Glomerular Filtration Rate (eGFR) is calculated using the 2020 CKD-EPI creatinine equation. This equation utilizes serum creatinine, sex, and age as parameters. The creatinine assay has traceable calibration to isotope dilution- mass spectrometry. Refer to KDIGO guidelines for clinical interpretation. In patients with unstable renal function, e.g. those with acute kidney injury, the eGFR may not accurately reflect actual GFR. Blood BLOOD SPECIMEN / Unknown Venipuncture / Unknown 08/12/2024 7:30 AM EDT 08/12/2024 7:49 AM EDT us Jenna Vazquez [employer] [facility] Final Result [facility] [address] [place] [address], * (ABNORMAL) COMPLETE BLOOD COUNT (08/12/2024 6:45 AM EDT) WBC 8.98 3.70 - 11.00 k/uL 08/12/2024 7:23 AM EDT [facility] RBC 3.77(L) 4.20 - 6.00 m/uL 08/12/2024 7:23 AM EDT [facility] Hemoglobin 8.4(L) 13.0 - 17.0 g/dL 08/12/2024 7:23 AM EDT [facility] Hematocrit 27.4(L) 39.0 - 51.0 % 08/12/2024 7:23 AM EDT [facility] MCV 72.7(L) 80.0 - 100.0 fL 08/12/2024 7:23 AM EDT [facility] MCH 22.3(L) 26.0 - 34.0 pg 08/12/2024 7:23 AM EDT [facility] MCHC 30.7 30.5 - 36.0 g/dL 08/12/2024 7:23 AM EDT [facility] RDW-CV 21.5(H) 11.5 - 15.0 % 08/12/2024 7:23 AM EDT [facility] Platelet Count 767(H) 150 - 400 k/uL 08/12/2024 7:23 AM EDT [facility] MPV 9.9 9.0 - 12.7 fL 08/12/2024 7:23 AM EDT [facility] Absolute nRBC <0.01 <0.01 k/uL 08/12/2024 7:23 AM EDT [facility] Blood BLOOD SPECIMEN / Unknown Venipuncture / Unknown 08/12/2024 6:45 AM EDT 08/12/2024 7:15 AM EDT us Jenna Vazquez [employer] Final Result [facility] [address] * (ABNORMAL) GLUCOSE, BLOOD (POC) (08/12/2024 5:50 AM EDT) [facility] Glucose, Point of Care 189(A) 74 - 99 mg/dL [facility] Comment: Location:[facility], [address] [place] [address], [facility] The Accu-Chek Inform II glucose meter has not been approved for testing on patients receiving intensive medical intervention or therapy and results from this point of care glucose test should not be used for patient management decisions in these cases. Inaccurate results may also occur from other interfering factors, such as N-acetylcysteine (blood concentrations of greater than 5mg/dL), galactose, extremes of hematocrit (<10 or >65), or high doses of ascorbic acid (vitamin C) greater than 3mg/dL. Consider alternate testing mechanisms (e.g. core lab, blood gas instrument) in the above situations. 08/12/2024 5:50 AM EDT Dylon Ochoa MD POC TESTING Final Result Performing Organization Address [facility] de Phone Number [address] * (ABNORMAL) GLUCOSE, BLOOD (POC) (08/11/2024 11:50 PM EDT) [facility], Point of Care 167(A) 74 - 99 mg/dL [facility] Comment: Location:[facility], [address] [place] [address], [facility] The Accu-Chek Inform II glucose meter has not been approved for testing on patients receiving intensive medical intervention or therapy and results from this point of care glucose test should not be used for patient management decisions in these cases. Inaccurate results may also occur from other interfering factors, such as N-acetylcysteine (blood concentrations of greater than 5mg/dL), galactose, extremes of hematocrit (<10 or >65), or high doses of ascorbic acid (vitamin C) greater than 3mg/dL. Consider alternate testing mechanisms (e.g. core lab, blood gas instrument) in the above situations. 08/11/2024 11:5 0 PM EDT Dylon Ochoa MD POC TESTING Final Result Performing Organization Address [facility] de Phone Number [facility] [id number] [place] [address] * (ABNORMAL) GLUCOSE, BLOOD (POC) (08/11/2024 6:01 PM EDT) Glucose, Point of Care 168(A) 74 - 99 mg/dL [facility] Comment: Location:[facility], [address] [place] [address], [address] The Accu-Chek Inform II glucose meter has not been approved for testing on patients receiving intensive medical intervention or therapy and results from this point of care glucose test should not be used for patient management decisions in these cases. Inaccurate results may also occur from other interfering factors, such as N-acetylcysteine (blood concentrations of greater than 5mg/dL), galactose, extremes of hematocrit (<10 or >65), or high doses of ascorbic acid (vitamin C) greater than 3mg/dL. Consider alternate testing mechanisms (e.g. core lab, blood gas instrument) in the above situations. 08/11/2024 6:01 PM EDT us Dylon Ochoa MD POC TESTING Final Result [facility] POINT OF CARE [address] * (ABNORMAL) GLUCOSE, BLOOD (POC) (08/11/2024 12:12 PM EDT) Glucose, Point of Care 146(A) 74 - 99 mg/dL [facility] Comment: Location:[facility], [address] [place] [address], [address] The Accu-Chek Inform II glucose meter has not been approved for testing on patients receiving intensive medical intervention or therapy and results from this point of care glucose test should not be used for patient management decisions in these cases. Inaccurate results may also occur from other interfering factors, such as N-acetylcysteine (blood concentrations of greater than 5mg/dL), galactose, extremes of hematocrit (<10 or >65), or high doses of ascorbic acid (vitamin C) greater than 3mg/dL. Consider alternate testing mechanisms (e.g. core lab, blood gas instrument) in the above situations. 08/11/2024 12:1 2 PM EDT Dylon Ochoa MD POC TESTING Final Result Performing Organization Address [facility] Co de Phone Number [facility] [address] [address] [place], [place] * (ABNORMAL) GLUCOSE, BLOOD (POC) (08/11/2024 5:59 AM EDT) Pathologist [facility] Glucose, Point of Care 125(A) 74 - 99 mg/dL [facility] Comment: Location:[facility], [id number] [place], [address] The Accu-Chek Inform II glucose meter has not been approved for testing on patients receiving intensive medical intervention or therapy and results from this point of care glucose test should not be used for patient management decisions in these cases. Inaccurate results may also occur from other interfering factors, such as N-acetylcysteine (blood concentrations of greater than 5mg/dL), galactose, extremes of hematocrit (<10 or >65), or high doses of ascorbic acid (vitamin C) greater than 3mg/dL. Consider alternate testing mechanisms (e.g. core lab, blood gas instrument) in the above situations. 08/11/2024 5:59 AM EDT Dylon Ochoa MD POC TESTING Final Result Performing Organization Address [facility] de Phone Number [facility] [address] [place], [place] * (ABNORMAL) COMPLETE BLOOD COUNT (08/11/2024 5:13 AM EDT) WBC 9.21 3.70 - 11.00 k/uL 08/11/2024 7:09 AM EDT [facility] RBC 4.17(L) 4.20 - 6.00 m/uL 08/11/2024 7:09 AM EDT [facility] Hemoglobin 9.0(L) 13.0 - 17.0 g/dL 08/11/2024 7:09 AM EDT [facility] Hematocrit 31.3(L) 39.0 - 51.0 % 08/11/2024 7:09 AM EDT [facility] MCV 75.1(L) 80.0 - 100.0 fL 08/11/2024 7:09 AM EDT [facility] MCH 21.6(L) 26.0 - 34.0 pg 08/11/2024 7:09 AM EDT [facility] MCHC 28.8(L) 30.5 - 36.0 g/dL 08/11/2024 7:09 AM EDT [facility] RDW-CV 21.7(H) 11.5 - 15.0 % 08/11/2024 7:09 AM EDT [facility] Platelet Count 610(H) 150 - 400 k/uL 08/11/2024 7:09 AM EDT [facility] MPV 10.1 9.0 - 12.7 fL 08/11/2024 7:09 AM EDT [facility] Absolute nRBC <0.01 <0.01 k/uL 08/11/2024 7:09 AM EDT [facility] Blood BLOOD SPECIMEN / Unknown Venipuncture / Unknown 08/11/2024 5:13 AM EDT 08/11/2024 6:33 AM EDT us Jenna Vazquez [employer] [place] [address], * (ABNORMAL) GLUCOSE, BLOOD (POC) (08/11/2024 12:24 AM EDT) [facility] Glucose, Point of Care 137(A) 74 - 99 mg/dL [facility] Comment: Location:[facility], [address] [place] [address], [facility] The Accu-Chek Inform II glucose meter has not been approved for testing on patients receiving intensive medical intervention or therapy and results from this point of care glucose test should not be used for patient management decisions in these cases. Inaccurate results may also occur from other interfering factors, such as N-acetylcysteine (blood concentrations of greater than 5mg/dL), galactose, extremes of hematocrit (<10 or >65), or high doses of ascorbic acid (vitamin C) greater than 3mg/dL. Consider alternate testing mechanisms (e.g. core lab, blood gas instrument) in the above situations. 08/11/2024 12:2 4 AM EDT Dylon Ochoa MD POC TESTING Final Result Performing Organization Address [facility] Co de Phone Number [facility] [address] [place], [place] * (ABNORMAL) GLUCOSE, BLOOD (POC) (08/10/2024 6:04 PM EDT) Glucose, Point of Care 177(A) 74 - 99 mg/dL [facility] Comment: Location:[facility], [address] [place] [address], [facility] The Accu-Chek Inform II glucose meter has not been approved for testing on patients receiving intensive medical intervention or therapy and results from this point of care glucose test should not be used for patient management decisions in these cases. Inaccurate results may also occur from other interfering factors, such as N-acetylcysteine (blood concentrations of greater than 5mg/dL), galactose, extremes of hematocrit (<10 or >65), or high doses of ascorbic acid (vitamin C) greater than 3mg/dL. Consider alternate testing mechanisms (e.g. core lab, blood gas instrument) in the above situations. 08/10/2024 6:04 PM EDT Result [facility] Dylon Ochoa MD POC TESTING Final Result Performing Organization Address [facility] Hospital/[facility] de Phone Number [facility] [address] [place], [place] * (ABNORMAL) GLUCOSE, BLOOD (POC) (08/10/2024 12:16 PM EDT) Glucose, Point of Care 157(A) 74 - 99 mg/dL [facility] Comment: Location:[facility], [address] [place] [address], [facility] The Accu-Chek Inform II glucose meter has not been approved for testing on patients receiving intensive medical intervention or therapy and results from this point of care glucose test should not be used for patient management decisions in these cases. Inaccurate results may also occur from other interfering factors, such as N-acetylcysteine (blood concentrations of greater than 5mg/dL), galactose, extremes of hematocrit (<10 or >65), or high doses of ascorbic acid (vitamin C) greater than 3mg/dL. Consider alternate testing mechanisms (e.g. core lab, blood gas instrument) in the above situations. 08/10/2024 12:1 6 PM EDT us Dylon Ochoa MD POC TESTING Final Result [facility] POINT OF CARE [facility] [address] [place], [place] * (ABNORMAL) COMPLETE BLOOD COUNT (08/10/2024 6:09 AM EDT) WBC 8.93 3.70 - 11.00 k/uL 08/10/2024 7:30 AM EDT [facility] RBC 3.88(L) 4.20 - 6.00 m/uL 08/10/2024 7:30 AM EDT [facility] Hemoglobin 8.3(L) 13.0 - 17.0 g/dL 08/10/2024 7:[facility] Hematocrit 28.1(L) 39.0 - 51.0 % 08/10/2024 7:30 AM [facility] MCV 72.4(L) 80.0 - 100.0 fL 08/10/2024 7:30 AM EDT [facility] MCH 21.4(L) 26.0 - 34.0 pg 08/10/2024 7:30 AM EDT [facility] MCHC 29.5(L) 30.5 - 36.0 g/dL 08/10/2024 7:30 AM [facility] RDW-CV 21.4(H) 11.5 - 15.0 % 08/10/2024 7:30 AM EDT [facility] Platelet Count 691(H) 150 - 400 k/uL 08/10/2024 7:30 AM EDT [facility] MPV 10.0 9.0 - 12.7 fL 08/10/2024 7:30 AM EDT [facility] Absolute nRBC <0.01 <0.01 k/uL 08/10/2024 7:30 AM EDT [facility] Blood BLOOD SPECIMEN / Unknown Venipuncture / Unknown 08/10/2024 6:09 AM EDT 08/10/2024 7:10 AM EDT Jenna Vazquez AUTO CLEANER.[facility] Final Result Performing Organization Address [facility]/ZIP Co de Phone Number [facility] [address] [place] [address], * (ABNORMAL) MAGNESIUM (08/10/2024 6:09 AM EDT) Magnesium 1.6(L) 1.7 - 2.3 mg/dL 08/10/2024 7:42 AM EDT [facility] Blood BLOOD SPECIMEN / Unknown Venipuncture / Unknown 08/10/2024 6:09 AM EDT 08/10/2024 7:18 AM EDT Black Fidel AUTO CLEANER.[facility] Final Result Performing Organization Address [facility] Co de Phone Number [facility] [address] [place] [address], [place] * (ABNORMAL) RENAL FUNCTION PANEL (08/10/2024 6:09 AM EDT) Albumin 3.7(L) 3.9 - 4.9 g/dL 08/10/2024 7:42 AM EDT [facility] Calcium, Total 9.4 8.5 - 10.2 mg/dL 08/10/2024 7:42 AM EDT [facility] Phosphorus 3.3 2.7 - 4.8 mg/dL 08/10/2024 7:42 AM EDT [facility] Glucose 143(H) 74 - 99 mg/dL 08/10/2024 7:42 AM EDT [facility] Comment: The [place] [employer] (ADA) provides guidance for cutoff values for fasting glucose and random glucose. The ADA defines fasting as no caloric intake for at least 8 hours. Fasting plasma glucose results between 100 to 125 mg/dL indicate increased risk for diabetes (prediabetes). Fasting plasma glucose results greater than or equal to 126 mg/dL meet the criteria for diagnosis of diabetes. In the absence of unequivocal hyperglycemia, results should be confirmed by repeat testing. In a patient with classic symptoms of hyperglycemia or hyperglycemic crisis, random plasma glucose results greater than or equal to 200 mg/dL meet the criteria for diagnosis of diabetes. Reference: Standards of Medical Care in Diabetes 2016, [place] [employer]. Diabetes Care. 2016.39(Suppl 1). BUN 18 9 - 24 mg/dL 08/10/2024 7:42 AM EDT [facility] Creatinine 0.45(L) 0.73 - 1.22 mg/dL 08/10/2024 7:42 AM EDT [facility] Sodium 134(L) 136 - 144 mmol/L 08/10/2024 7:42 AM EDT [facility] Potassium 4.3 3.7 - 5.1 mmol/L 08/10/2024 7:42 AM EDT [facility] Chloride 98 98 - 107 mmol/L 08/10/2024 7:42 AM EDT [facility] CO2 22 22 - 30 mmol/L 08/10/2024 7:42 AM EDT [facility] Anion Gap 14 8 - 15 mmol/L 08/10/2024 7:42 AM EDT [facility] Estimated Glomerular Filtration Rate 118 >=60 mL/min/1. 73m 08/10/2024 7:42 AM [facility] Comment:Estimated Glomerular Filtration Rate (eGFR) is calculated using the 2020 CKD-EPI creatinine equation. This equation utilizes serum creatinine, sex, and age as parameters. The creatinine assay has traceable calibration to isotope dilution- mass spectrometry. Refer to KDIGO guidelines for clinical interpretation. In patients with unstable renal function, e.g. those with acute kidney injury, the eGFR may not accurately reflect actual GFR. Blood BLOOD SPECIMEN / Unknown Venipuncture / Unknown 08/10/2024 6:09 AM EDT 08/10/2024 7:18 AM EDT us Black Carter APRN.[facility] Final Result [facility] [address] [place] [address], * (ABNORMAL) GLUCOSE, BLOOD (POC) (08/10/2024 6:08 AM EDT) Glucose, Point of Care 170(A) 74 - 99 mg/dL [facility] Comment: Location:[facility], [address] [place] [address], [facility] The Accu-Chek Inform II glucose meter has not been approved for testing on patients receiving intensive medical intervention or therapy and results from this point of care glucose test should not be used for patient management decisions in these cases. Inaccurate results may also occur from other interfering factors, such as N-acetylcysteine (blood concentrations of greater than 5mg/dL), galactose, extremes of hematocrit (<10 or >65), or high doses of ascorbic acid (vitamin C) greater than 3mg/dL. Consider alternate testing mechanisms (e.g. core lab, blood gas instrument) in the above situations. 08/10/2024 6:08 AM EDT Dylon Ochoa MD POC TESTING Final Result [facility] POINT OF CARE [address] * (ABNORMAL) GLUCOSE, BLOOD (POC) (08/10/2024 12:01 AM EDT) Pathologist [facility] Glucose, Point of Care 152(A) 74 - 99 mg/dL [facility] Comment: Location:[facility], [address] [place] [address], [facility] The Accu-Chek Inform II glucose meter has not been approved for testing on patients receiving intensive medical intervention or therapy and results from this point of care glucose test should not be used for patient management decisions in these cases. Inaccurate results may also occur from other interfering factors, such as N-acetylcysteine (blood concentrations of greater than 5mg/dL), galactose, extremes of hematocrit (<10 or >65), or high doses of ascorbic acid (vitamin C) greater than 3mg/dL. Consider alternate testing mechanisms (e.g. core lab, blood gas instrument) in the above situations. 08/10/2024 12:0 1 AM EDT us Dylon Ochoa MD POC TESTING Final Result [facility] POINT OF CARE [facility] [address] [place], [place] * EPIL EEG BEM - CONTINUOUS BEDSIDE W/VIDEO INCLUDES PORTABLE EEG READ (08/10/2024 12:00 AM EDT) 08/10/2024 Narrative NEUROLOGY - 08/11/2024 12:32 PM EDT [facility], Epilepsy Center EPIL EEG BEM - Continuous bedside w/video includes portable EEG read [[id number]] Patient name: SARAY CORBIN Date of test: 08/10/2024 Requested By: BLACK CARTER Staff Physician: Pavithra Givens EEG Fellow or Sobieski: Qian Meléndez History: Per record: Patient is 63 year old male with PMH of CHF, CAD, seizure d/o admitted with complaints of SAH. He was transferred here from an OSH due to a SAH after a fall to get Neurosurgery evaluation. EEG was ordered for: Altered mental status Etiology: Subarachnoid Hemorrhage Conditions: Awake Diagnosis: Primary: R41.82 Altered mental status, unspecified altered mental status type BEM Read Period: 08/10/2024 04:30:00 AM - 08/10/2024 01:15:00 PM Read duration: 525 minutes Classifications: Abnormal III (10-20 Scalp Electrodes, CT-Compatible Electrodes, Anterior Temporal Electrodes, Awake) Interictal: Continuous Slow, Generalized, Maximum, Left Hemisphere Intermittent Rhythmic Slow, Generalized, Maximum, Bifrontal Region Impression: This bedside EEG was recorded from 2573-2663 on 08/10/2024 and is suggestive of cerebral dysfunction maximum in the left hemisphere and a severe diffuse encephalopathy. No epileptiform discharges or EEG seizures were recorded. Interpreted and electronically signed by Pavithra Givens Date of signin08/11/2024 12:32 us Black Carter APRN.CNP NEUROLOGY Final Result Performing Organization Address [facility] Co de Phone Number NEUROLOGY [address] [place] [address], * (ABNORMAL) GLUCOSE, BLOOD (POC) (08/09/2024 6:00 PM EDT) Glucose, Point of Care 172(A) 74 - 99 mg/dL [facility] Comment: Location:[facility], [id number] [place] [address], [facility] The Accu-Chek Inform II glucose meter has not been approved for testing on patients receiving intensive medical intervention or therapy and results from this point of care glucose test should not be used for patient management decisions in these cases. Inaccurate results may also occur from other interfering factors, such as N-acetylcysteine (blood concentrations of greater than 5mg/dL), galactose, extremes of hematocrit (<10 or >65), or high doses of ascorbic acid (vitamin C) greater than 3mg/dL. Consider alternate testing mechanisms (e.g. core lab, blood gas instrument) in the above situations. 08/09/2024 6:00 PM EDT us Dylon Ochoa MD POC TESTING Final Result Performing Organization Address [facility] Co de Phone Number [facility] POINT OF CARE [facility] [address] [address] [place], [place] * THYROID STIMULATING HORMONE (08/09/2024 12:34 PM EDT) TSH 2.070 0.270 - 4.200 mIU/L 08/09/2024 1:26 PM EDT [facility] Blood BLOOD SPECIMEN / Unknown Venipuncture / Unknown 08/09/2024 12:34 PM EDT 08/09/2024 12:47 PM EDT us Lance Escobedo AUTO CLEANER[employer] Final Result Performing Organization Address City/[facility]/ZIP Co de Phone Number [facility] [address] [place] [address], * AMMONIA (08/09/2024 12:34 PM EDT) [facility] Ammonia 17 16 - 60 umol/L 08/09/2024 1:44 PM EDT [facility] Blood BLOOD SPECIMEN / Unknown Venipuncture / Unknown 08/09/2024 12:34 PM EDT 08/09/2024 12:47 PM EDT Lance Escobedo AUTO CLEANER.[facility] Final Result Performing Organization Address [facility] de Phone Number [facility] [address] [place] [address], [place] * FOLATE, SERUM (08/09/2024 12:34 PM EDT) [facility] Folate >20.0 >4.7 ng/mL 08/09/2024 1:36 PM EDT [facility] Comment: A result of > 20 ng/mL is not necessarily indicative of a pathologic or treatable condition: it reflects a limitation of the test methodology. Assay reference range: 4.8 to 24.2 ng/mL. Suitable for detection of folate deficiency. Reference: Folate III (Folate III) [package insert V 1.0 Yi]. [facility], [place], [place]: January 2015. Blood BLOOD SPECIMEN / Unknown Venipuncture / Unknown 08/09/2024 12:34 PM EDT 08/09/2024 12:47 PM EDT Lance Escobedo AUTO CLEANER.[facility] Final Result Performing Organization Address [facility]/ZIP Co de Phone Number [facility] [address] [place] [address], * (ABNORMAL) VITAMIN B1 (THIAMINE), WHOLE BLOOD (08/09/2024 12:34 PM EDT) [facility] Vitamin B1 (Thiamine diphosphate), Whole Blood 458.8(H) 84.3 - 213.3 nmol/L 08/19/2024 1:43 PM EDT [facility] Comment: Result rechecked. This assay measures the concentration of thiamine diphosphate (TDP), the primary active form of vitamin B1. Approximately 90 percent of vitamin B1 present in whole blood is TDP. Thiamine and thiamine monophosphate, which comprise the remaining 10 percent, are not measured. This test was developed, and its performance characteristics determined by the [facility] Department of Pathology and Laboratory Medicine. It has not been cleared or approved by the FDA. The [facility] Department of Pathology and Laboratory Medicine is regulated under CLIA as qualified to perform high- complexity testing. This test is used for clinical purposes. It should not be regarded as investigational or for research. Blood BLOOD SPECIMEN / Unknown Venipuncture / Unknown 08/09/2024 12:34 PM EDT 08/09/2024 12:47 PM EDT Lnace Escobedo AUTO CLEANER.[facility] Final Result Performing Organization Address [facility]/ZIP Co de Phone Number [facility] [address] [address], [place] * VITAMIN B12 (08/09/2024 12:34 PM EDT) [facility] Vitamin B12 458 232 - 1,245 pg/mL 08/09/2024 1:36 PM EDT [facility] Blood BLOOD SPECIMEN / Unknown Venipuncture / Unknown 08/09/2024 12:34 PM EDT 08/09/2024 12:47 PM EDT Lance Escobedo APRN.[facility] Final Result [facility] [address] [place] [address], [place] * (ABNORMAL) GLUCOSE, BLOOD (POC) (08/09/2024 12:29 PM EDT) [facility] Glucose, Point of Care 144(A) 74 - 99 mg/dL [facility] Comment: Location:[facility], [address] [place] [address], [facility] The Accu-Chek Inform II glucose meter has not been approved for testing on patients receiving intensive medical intervention or therapy and results from this point of care glucose test should not be used for patient management decisions in these cases. Inaccurate results may also occur from other interfering factors, such as N-acetylcysteine (blood concentrations of greater than 5mg/dL), galactose, extremes of hematocrit (<10 or >65), or high doses of ascorbic acid (vitamin C) greater than 3mg/dL. Consider alternate testing mechanisms (e.g. core lab, blood gas instrument) in the above situations. 08/09/2024 12:2 9 PM EDT Dylon Ochoa MD POC TESTING Final Result Performing Organization Address [facility]/ZIP Co de Phone Number [facility] POINT OF [address] * PHOSPHORUS INORGANIC (08/09/2024 11:01 AM EDT) Phosphorus 3.3 2.7 - 4.8 mg/dL 08/09/2024 11:30 AM EDT [facility] Blood BLOOD SPECIMEN / Unknown Venipuncture / Unknown 08/09/2024 11:01 AM EDT 08/09/2024 11:16 AM EDT Jenna Vazquez APRN.[facility] Final Result Performing Organization Address [facility] Co de Phone Number [facility] [address] [place] [address], * (ABNORMAL) GLUCOSE, BLOOD (POC) (08/09/2024 6:44 AM EDT) Pathologist [facility] Glucose, Point of Care 190(A) 74 - 99 mg/dL [facility] Comment: Location:[facility], [address] [place] [address], [facility] The Accu-Chek Inform II glucose meter has not been approved for testing on patients receiving intensive medical intervention or therapy and results from this point of care glucose test should not be used for patient management decisions in these cases. Inaccurate results may also occur from other interfering factors, such as N-acetylcysteine (blood concentrations of greater than 5mg/dL), galactose, extremes of hematocrit (<10 or >65), or high doses of ascorbic acid (vitamin C) greater than 3mg/dL. Consider alternate testing mechanisms (e.g. core lab, blood gas instrument) in the above situations. 08/09/2024 6:44 AM EDT us Dylon Ochoa MD POC TESTING Final Result [facility] POINT OF [facility] [address] [place], [place] * (ABNORMAL) COMPLETE BLOOD COUNT (08/09/2024 4:48 AM EDT) WBC 9.32 3.70 - 11.00 k/uL 08/09/2024 5:32 AM EDT [facility] RBC 3.76(L) 4.20 - 6.00 m/uL 08/09/2024 5:32 AM [facility] Hemoglobin 8.1(L) 13.0 - 17.0 g/dL 08/09/2024 5:32 AM [facility] Hematocrit 27.2(L) 39.0 - 51.0 % 08/09/2024 5:32 AM [facility] MCV 72.3(L) 80.0 - 100.0 fL 08/09/2024 5:32 AM EDT [facility] MCH 21.5(L) 26.0 - 34.0 pg 08/09/2024 5:32 AM [facility] MCHC 29.8(L) 30.5 - 36.0 g/dL 08/09/2024 5:32 AM [facility] RDW-CV 21.2(H) 11.5 - 15.0 % 08/09/2024 5:32 AM [facility] Platelet Count 615(H) 150 - 400 k/uL 08/09/2024 5:32 AM EDT [facility] MPV 9.5 9.0 - 12.7 fL 08/09/2024 5:32 AM [facility] Absolute nRBC <0.01 <0.01 k/uL 08/09/2024 5:32 AM EDT [facility] Blood BLOOD SPECIMEN / Unknown Venipuncture / Unknown 08/09/2024 4:48 AM EDT 08/09/2024 5:25 AM EDT Jenna Vazquez AUTO CLEANER.[facility] Final Result Performing Organization Address City/[facility]/ZIP Co de Phone Number [facility] [address] [place] [address], * MAGNESIUM (08/09/2024 4:48 AM EDT) Magnesium 1.8 1.7 - 2.3 mg/dL 08/09/2024 6:49 AM EDT [facility] Blood BLOOD SPECIMEN / Unknown Venipuncture / Unknown 08/09/2024 4:48 AM EDT 08/09/2024 6:00 AM EDT Black Carter AUTO CLEANER.[facility] Final Result Performing Organization Address [facility] de Phone Number [facility] [address] [place] [address], [place] * (ABNORMAL) RENAL FUNCTION PANEL (08/09/2024 4:48 AM EDT) Albumin 3.6(L) 3.9 - 4.9 g/dL 08/09/2024 6:49 AM EDT [facility] Calcium, Total 9.0 8.5 - 10.2 mg/dL 08/09/2024 6:49 AM EDT [facility] Phosphorus 2.7 2.7 - 4.8 mg/dL 08/09/2024 6:49 AM EDT [facility] Glucose 158(H) 74 - 99 mg/dL 08/09/2024 6:49 AM EDT [facility] Comment: The [place] Diabetes [employer] (ADA) provides guidance for cutoff values for fasting glucose and random glucose. The ADA defines fasting as no caloric intake for at least 8 hours. Fasting plasma glucose results between 100 to 125 mg/dL indicate increased risk for diabetes (prediabetes). Fasting plasma glucose results greater than or equal to 126 mg/dL meet the criteria for diagnosis of diabetes. In the absence of unequivocal hyperglycemia, results should be confirmed by repeat testing. In a patient with classic symptoms of hyperglycemia or hyperglycemic crisis, random plasma glucose results greater than or equal to 200 mg/dL meet the criteria for diagnosis of diabetes. Reference: Standards of Medical Care in Diabetes 2016, [place] [employer]. Diabetes Care. 2016.39(Suppl 1). BUN 13 9 - 24 mg/dL 08/09/2024 6:49 AM EDT [facility] Creatinine 0.51(L) 0.73 - 1.22 mg/dL 08/09/2024 6:49 AM EDT [facility] Sodium 132(L) 136 - 144 mmol/L 08/09/2024 6:49 AM EDT [facility] Potassium 4.0 3.7 - 5.1 mmol/L 08/09/2024 6:49 AM EDT [facility] Chloride 98 98 - 107 mmol/L 08/09/2024 6:49 AM EDT [facility] CO2 20(L) 22 - 30 mmol/L 08/09/2024 6:49 AM EDT [facility] Anion Gap 14 8 - 15 mmol/L 08/09/2024 6:49 AM EDT [facility] Estimated Glomerular Filtration Rate 114 >=60 mL/min/1. 73m 08/09/2024 6:49 AM EDT [facility] Comment:Estimated Glomerular Filtration Rate (eGFR) is calculated using the 2020 CKD-EPI creatinine equation. This equation utilizes serum creatinine, sex, and age as parameters. The creatinine assay has traceable calibration to isotope dilution- mass spectrometry. Refer to KDIGO guidelines for clinical interpretation. In patients with unstable renal function, e.g. those with acute kidney injury, the eGFR may not accurately reflect actual GFR. Blood BLOOD SPECIMEN / Unknown Venipuncture / Unknown 08/09/2024 4:48 AM EDT 08/09/2024 6:00 AM EDT us Black Carter AUTO CLEANER[employer] Final Result [facility] [address] [place] [address], * (ABNORMAL) GLUCOSE, BLOOD (POC) (08/09/2024 12:46 AM EDT) [facility] Glucose, Point of Care 172(A) 74 - 99 mg/dL [facility] Comment: Location:[facility], [address] [place], [place], [address] The Accu-Chek Inform II glucose meter has not been approved for testing on patients receiving intensive medical intervention or therapy and results from this point of care glucose test should not be used for patient management decisions in these cases. Inaccurate results may also occur from other interfering factors, such as N-acetylcysteine (blood concentrations of greater than 5mg/dL), galactose, extremes of hematocrit (<10 or >65), or high doses of ascorbic acid (vitamin C) greater than 3mg/dL. Consider alternate testing mechanisms (e.g. core lab, blood gas instrument) in the above situations. 08/09/2024 12:4 6 AM EDT us Dylon Ochoa MD POC TESTING Final Result [facility] POINT OF CARE [facility] [address] [place], [place] * EPIL EEG BEM - CONTINUOUS BEDSIDE W/VIDEO INCLUDES PORTABLE EEG READ (08/09/2024 12:00 AM EDT) 08/09/2024 Narrative NEUROLOGY - 08/10/2024 11:12 AM EDT [facility], Epilepsy Center EPIL EEG BEM - Continuous bedside w/video includes portable EEG read [[id number]] Patient name: SARAY CORBIN Date of test: 08/09/2024 Requested By: BLACK CARTER Staff Physician: Pavithra Givens EEG Fellow or Sobieski: Teresa Burgess History: Per record: Patient is 63 year old male with PMH of CHF, CAD, seizure d/o admitted with complaints of SAH. He was transferred here from an OSH due to a SAH after a fall to get Neurosurgery evaluation. EEG was ordered for: Altered mental status Etiology: Convulsions NOS Conditions: Awake Diagnosis: Primary: R41.82 Altered mental status, unspecified altered mental status type BEM Read Period: 08/09/2024 05:01:00 AM - 08/10/2024 04:30:00 AM Read duration: 1409 minutes Classifications: Abnormal III (10-20 Scalp Electrodes, CT-Compatible Electrodes, Anterior Temporal Electrodes, Awake) Interictal: Continuous Slow, Generalized, Maximum, Left Hemisphere Intermittent Rhythmic Slow, Generalized, Maximum, Bifrontal Region Impression: This bedside EEG was recorded from 0501 on 08/09/2024 until 0430 on 08/10/2024 and is suggestive of cerebral dysfunction maximum in the left hemisphere and a severe diffuse encephalopathy. No epileptiform discharges or EEG seizures were recorded. Of note EEG is heavily obscured by electrode artifact after 08/09/24 1500 and unreadable from 1600 -1830 Interpreted and electronically signed by Pavithra Givens Date of signin08/10/2024 11:12 Black Carter APRN.[facility] Final Result Performing Organization Address [facility] de Phone Number NEUROLOGY [facility] [place] [id number], * (ABNORMAL) BACTERIAL CULTURE, URINE (08/08/2024 6:14 PM EDT) Culture, Urine 1,000 - <5,000 CFU/ml Mixed microbiota including 4 different colony types, and no one type predominating. No further workup.(A) 08/10/2024 4:05 PM EDT [facility] Urine URINE SPECIMEN / Unknown Non Blood / Unknown 08/08/2024 6:14 PM EDT 08/08/2024 6:18 PM EDT Jenna Vazquez APRN.CNP MICROBIOLOGY Final Result Performing Organization Address [facility] Co de Phone Number [facility] [address] [facility] [place][Note 2] Desk [address] [place] [address], [place] * (ABNORMAL) URINALYSIS, REFLEX MICROSCOPIC (08/08/2024 6:14 PM EDT) Color Yellow Yellow 08/08/2024 6:29 PM EDT [facility] Clarity Dense Turbid(A) Clear 08/08/2024 6:29 PM EDT [facility] Glucose, Urine Negative Trace, Negative 08/08/2024 6:29 PM EDT [facility] Bilirubin, Urine Negative Negative 08/09/19 6:29 PM EDT [facility] Ketones, Urine Negative Negative, Trace 08/08/2024 6:29 PM EDT [facility] Specific [place], Ur 1.022 1.005 - 1.030 08/08/2024 6:29 PM EDT [facility] Hemoglobin/Blood ,Ur Negative Negative, Trace 08/08/2024 6:29 PM EDT [facility] pH, Urine 8.0 5.0 - 8.0 08/08/2024 6:29 PM EDT [facility] Protein, Urine Trace Trace, Negative 08/08/2024 6:29 PM EDT [facility] Urobilinogen Normal Normal 08/08/2024 6:29 PM EDT [facility] Nitrites Negative Negative 08/08/2024 6:29 PM EDT [facility] Leuk Esterase Negative Negative, 25 Felisha/uL 08/08/2024 6:29 PM EDT [facility] WBC, Urine 0-5 /HPF 0-5 /HPF 08/08/2024 6:29 PM EDT [facility] RBC, Urine 3-5 /HPF(A) 0-3 /HPF 08/08/2024 6:29 PM EDT [facility] Bacteria Moderate(A) None Seen /HPF 08/08/2024 6:29 PM EDT [facility] Urine URINE SPECIMEN / Unknown Non Blood / Unknown 08/08/2024 6:14 PM EDT 08/08/2024 6:18 PM EDT us Jenna Vazquez AUTO CLEANER.[facility] Final Result [facility] [address] [place] [address], [place] * (ABNORMAL) GLUCOSE, BLOOD (POC) (08/08/2024 6:06 PM EDT) [facility] Glucose, Point of Care 182(A) 74 - 99 mg/dL [facility] Comment: Location:[facility], [address] [place], [place], [address] The Accu-Chek Inform II glucose meter has not been approved for testing on patients receiving intensive medical intervention or therapy and results from this point of care glucose test should not be used for patient management decisions in these cases. Inaccurate results may also occur from other interfering factors, such as N-acetylcysteine (blood concentrations of greater than 5mg/dL), galactose, extremes of hematocrit (<10 or >65), or high doses of ascorbic acid (vitamin C) greater than 3mg/dL. Consider alternate testing mechanisms (e.g. core lab, blood gas instrument) in the above situations. 08/08/2024 6:06 PM EDT Dylon Ochoa MD POC TESTING Final Result [facility] POINT OF CARE [facility] [address] [place], [place] * (ABNORMAL) COMPLETE BLOOD COUNT (08/08/2024 4:56 PM EDT) [facility] WBC 9.12 3.70 - 11.00 k/uL 08/08/2024 5:08 PM EDT [facility] RBC 3.82(L) 4.20 - 6.00 m/uL 08/08/2024 5:08 PM EDT [facility] Hemoglobin 8.3(L) 13.0 - 17.0 g/dL 08/08/2024 5:08 PM EDT [facility] Hematocrit 27.7(L) 39.0 - 51.0 % 08/08/2024 5:08 PM EDT [facility] MCV 72.5(L) 80.0 - 100.0 fL 08/08/2024 5:08 PM EDT [facility] MCH 21.7(L) 26.0 - 34.0 pg 08/08/2024 5:08 PM EDT [facility] MCHC 30.0(L) 30.5 - 36.0 g/dL 08/08/2024 5:08 PM EDT [facility] RDW-CV 21.2(H) 11.5 - 15.0 % 08/08/2024 5:08 PM EDT [facility] Platelet Count 624(H) 150 - 400 k/uL 08/08/2024 5:08 PM EDT [facility] MPV 9.1 9.0 - 12.7 fL 08/08/2024 5:08 PM EDT [facility] Absolute nRBC <0.01 <0.01 k/uL 08/08/2024 5:08 PM EDT [facility] Blood BLOOD SPECIMEN / Unknown Venipuncture / Unknown 08/08/2024 4:56 PM EDT 08/08/2024 5:03 PM EDT Jenna Vazquez APRN.[facility] Final Result Performing Organization Address [facility] [place] [address], * (ABNORMAL) GLUCOSE, BLOOD (POC) (08/08/2024 11:56 AM EDT) [facility] Glucose, Point of Care 162(A) 74 - 99 mg/dL [facility] Comment: Location:[facility], [address] [place] [address], [facility] The Accu-Chek Inform II glucose meter has not been approved for testing on patients receiving intensive medical intervention or therapy and results from this point of care glucose test should not be used for patient management decisions in these cases. Inaccurate results may also occur from other interfering factors, such as N-acetylcysteine (blood concentrations of greater than 5mg/dL), galactose, extremes of hematocrit (<10 or >65), or high doses of ascorbic acid (vitamin C) greater than 3mg/dL. Consider alternate testing mechanisms (e.g. core lab, blood gas instrument) in the above situations. 08/08/2024 11:5 6 AM EDT us Dylon Ochoa MD POC TESTING Final Result Performing Organization Address [facility]/ZIP Co de Phone Number [facility] POINT OF CARE [facility] [address] [address] [place], [place] * CT BRAIN WO IVCON (08/08/2024 10:41 AM EDT) Anatomical Region Laterality Modality Head Computed Tomogra phy 08/08/2024 10:4 1 AM EDT Impressions 08/08/2024 10:51 AM EDT IMPRESSION: RESOLVING THROMBUS WITHIN THE LEFT LATERAL VENTRICLE AND LAYERING HYPERDENSE INTRAVENTRICULAR HEMORRHAGE WITHIN THE OCCIPITAL HORN OF THE LEFT LATERAL VENTRICLE, MILDLY IMPROVED SINCE 08/06/2024. TRACE LINEAR SUBDURAL HEMORRHAGE ALONG THE LEFT TENTORIUM, STABLE. INTERVAL RESOLUTION OF FOCAL INTRAVENTRICULAR HEMORRHAGE WITHIN THE FOURTH VENTRICLE SINCE 08/06/2024. Front End Assistant: PSCB Transcribe Date/Time: Aug 08 2024 10:42A Dictated by : ELEUTERIO CÁRDENAS MD This examination was interpreted and the report reviewed and electronically signed by: ELEUTERIO CÁRDENAS MD on Aug 08 2024 10:49AM EST Narrative 08/08/2024 10:51 AM EDT * * *Final Report* * * DATE OF EXAM: Aug 08 2024 10:41AM [facility] 0504 - CT BRAIN WO IVCON / PROCEDURE REASON: Head trauma, moderate-severe * * * * Physician Interpretation * * * * EXAMINATION: CT BRAIN WO IVCON CLINICAL HISTORY: Follow-up intracranial hematoma TECHNIQUE: Serial axial images without IV contrast were obtained from the vertex to the foramen magnum. MQ: CTBWO_3 CT Radiation dose: Integrated Dose-Length Product (DLP) for this visit = 799 mGy*cm CT Dose Reduction Employed: Automated exposure control (AEC) COMPARISON: Head CT dated 08/06/2024, 08/01/2024, 07/31/2024 RESULT: Post-operative change: There is interval placement of overlying EEG since 08/06/2024. Acute change: No evidence of an acute infarct or other acute parenchymal process. Hemorrhage: There is resolving thrombus within the left lateral ventricle and layering hyperdense intraventricular hemorrhage within the occipital horn of the left lateral ventricle, mildly improved since 08/06/2024. There is interval resolution of focal intraventricular hemorrhage within the fourth ventricle since 08/06/2024. There is trace linear subdural hemorrhage along the left tentorium, stable. Mass Lesion / Mass Effect: There is no evidence of an intracranial mass or extraaxial fluid collection. No significant mass effect. Chronic change: Scattered patchy foci of low attenuation are present within the supratentorial white matter, a nonspecific finding that most commonly represents mild small vessel disease. Parenchyma: There is mild generalized volume loss. Ventricles: Ventricular enlargement concordant with the degree of parenchymal volume loss. Paranasal sinuses and skull base: The visualized paranasal sinuses demonstrate moderate hyperdense soft tissue opacification of the right maxillary and left sphenoid sinuses, stable. The skull base and imaged soft tissues are unremarkable. Localizer images: The right nasogastric tube is again noted. Procedure Note Provider, [facility] - 08/08/2024 * * *Final Report* * * DATE OF EXAM: Aug 08 2024 10:41AM [facility]VC 0504 - CT BRAIN WO IVCON / PROCEDURE REASON: Head trauma, moderate-severe * * * * Physician Interpretation * * * * EXAMINATION: CT BRAIN WO IVCON CLINICAL HISTORY: Follow-up intracranial hematoma TECHNIQUE: Serial axial images without IV contrast were obtained from the vertex to the foramen magnum. MQ: CTBWO_3 CT Radiation dose: Integrated Dose-Length Product (DLP) for this visit = 799 mGy*cm CT Dose Reduction Employed: Automated exposure control (AEC) COMPARISON: Head CT dated 08/06/2024, 08/01/2024, 07/31/2024 RESULT: Post-operative change: There is interval placement of overlying EEG since 08/06/2024. Acute change: No evidence of an acute infarct or other acute parenchymal process. Hemorrhage: There is resolving thrombus within the left lateral ventricle and layering hyperdense intraventricular hemorrhage within the occipital horn of the left lateral ventricle, mildly improved since 08/06/2024. There is interval resolution of focal intraventricular hemorrhage within the fourth ventricle since 08/06/2024. There is trace linear subdural hemorrhage along the left tentorium, stable. Mass Lesion / Mass Effect: There is no evidence of an intracranial mass or extraaxial fluid collection. No significant mass effect. Chronic change: Scattered patchy foci of low attenuation are present within the supratentorial white matter, a nonspecific finding that most commonly represents mild small vessel disease. Parenchyma: There is mild generalized volume loss. Ventricles: Ventricular enlargement concordant with the degree of parenchymal volume loss. Paranasal sinuses and skull base: The visualized paranasal sinuses demonstrate moderate hyperdense soft tissue opacification of the right maxillary and left sphenoid sinuses, stable. The skull base and imaged soft tissues are unremarkable. Localizer images: The right nasogastric tube is again noted. IMPRESSION IMPRESSION: RESOLVING THROMBUS WITHIN THE LEFT LATERAL VENTRICLE AND LAYERING HYPERDENSE INTRAVENTRICULAR HEMORRHAGE WITHIN THE OCCIPITAL HORN OF THE LEFT LATERAL VENTRICLE, MILDLY IMPROVED SINCE 08/06/2024. TRACE LINEAR SUBDURAL HEMORRHAGE ALONG THE LEFT TENTORIUM, STABLE. INTERVAL RESOLUTION OF FOCAL INTRAVENTRICULAR HEMORRHAGE WITHIN THE FOURTH VENTRICLE SINCE 08/06/2024. Front End Assistant: PSCB Transcribe Date/Time: Aug 08 2024 10:42A Dictated by : ELEUTERIO CÁRDENAS MD This examination was interpreted and the report reviewed and electronically signed by: ELEUTERIO CÁRDENAS MD on Aug 08 2024 10:49AM EST us Jenna Vazquez APRN.KENO WRITER CT-PAMA Final Result * (ABNORMAL) GLUCOSE, BLOOD (POC) (08/08/2024 6:21 AM EDT) [facility] Glucose, Point of Care 171(A) 74 - 99 mg/dL [facility] Comment: Location:[facility], [id number] [place] [address], [facility] The Accu-Chek Inform II glucose meter has not been approved for testing on patients receiving intensive medical intervention or therapy and results from this point of care glucose test should not be used for patient management decisions in these cases. Inaccurate results may also occur from other interfering factors, such as N-acetylcysteine (blood concentrations of greater than 5mg/dL), galactose, extremes of hematocrit (<10 or >65), or high doses of ascorbic acid (vitamin C) greater than 3mg/dL. Consider alternate testing mechanisms (e.g. core lab, blood gas instrument) in the above situations. 08/08/2024 6:21 AM EDT us Dylon Ochoa MD POC TESTING Final Result [facility] POINT OF CARE [place] [address] [address] [place], [place] * OSMOLALITY (08/08/2024 4:48 AM EDT) Osmolality 282 275 - 300 mOsm/kg 08/08/2024 5:26 AM EDT [facility] Blood BLOOD SPECIMEN / Unknown Venipuncture / Unknown 08/08/2024 4:48 AM EDT 08/08/2024 5:15 AM EDT Black Carter AUTO CLEANER.[facility] Final Result Performing Organization Address [facility] Co de Phone Number [facility] [address] [place] [address], * (ABNORMAL) MAGNESIUM (08/08/2024 4:48 AM EDT) Magnesium 1.6(L) 1.7 - 2.3 mg/dL 08/08/2024 5:43 AM EDT [facility] Blood BLOOD SPECIMEN / Unknown Venipuncture / Unknown 08/08/2024 4:48 AM EDT 08/08/2024 5:20 AM EDT Black Carter AUTO CLEANER.[facility] Final Result Performing Organization Address [facility] de Phone Number [facility] [id number] [place] [address], * (ABNORMAL) RENAL FUNCTION PANEL (08/08/2024 4:48 AM EDT) Albumin 3.7(L) 3.9 - 4.9 g/dL 08/08/2024 5:43 AM EDT [facility] Calcium, Total 8.8 8.5 - 10.2 mg/dL 08/08/2024 5:43 AM EDT [facility] Phosphorus 2.5(L) 2.7 - 4.8 mg/dL 08/08/2024 5:43 AM EDT [facility] Glucose 152(H) 74 - 99 mg/dL 08/08/2024 5:43 AM EDT [facility] Comment: The [place] [employer] (ADA) provides guidance for cutoff values for fasting glucose and random glucose. The ADA defines fasting as no caloric intake for at least 8 hours. Fasting plasma glucose results between 100 to 125 mg/dL indicate increased risk for diabetes (prediabetes). Fasting plasma glucose results greater than or equal to 126 mg/dL meet the criteria for diagnosis of diabetes. In the absence of unequivocal hyperglycemia, results should be confirmed by repeat testing. In a patient with classic symptoms of hyperglycemia or hyperglycemic crisis, random plasma glucose results greater than or equal to 200 mg/dL meet the criteria for diagnosis of diabetes. Reference: Standards of Medical Care in Diabetes 2016, [place] [employer]. Diabetes Care. 2016.39(Suppl 1). BUN 10 9 - 24 mg/dL 08/08/2024 5:43 AM EDT [facility] Creatinine 0.54(L) 0.73 - 1.22 mg/dL 08/08/2024 5:43 AM EDT [facility] Sodium 126(L) 136 - 144 mmol/L 08/08/2024 5:43 AM EDT [facility] Potassium 4.0 3.7 - 5.1 mmol/L 08/08/2024 5:43 [facility] Chloride 94(L) 98 - 107 mmol/L 08/08/2024 5:43 AM EDT [facility] CO2 21(L) 22 - 30 mmol/L 08/08/2024 5:43 AM [facility] Anion Gap 11 8 - 15 mmol/L 08/08/2024 5:43 AM EDT [facility] Estimated Glomerular Filtration Rate 112 >=60 mL/min/1. 73m 08/08/2024 5:43 AM [facility] Comment:Estimated Glomerular Filtration Rate (eGFR) is calculated using the 2020 CKD-EPI creatinine equation. This equation utilizes serum creatinine, sex, and age as parameters. The creatinine assay has traceable calibration to isotope dilution- mass spectrometry. Refer to KDIGO guidelines for clinical interpretation. In patients with unstable renal function, e.g. those with acute kidney injury, the eGFR may not accurately reflect actual GFR. Blood BLOOD SPECIMEN / Unknown Venipuncture / Unknown 08/08/2024 4:48 AM EDT 08/08/2024 5:20 AM EDT us Black Carter AUTO CLEANER.[facility] Final Result [facility] [address] [place] [address], * (ABNORMAL) GLUCOSE, BLOOD (POC) (08/08/2024 1:14 AM EDT) [facility] Glucose, Point of Care 162(A) 74 - 99 mg/dL [facility] Comment: Location:[facility], [address] [place] [address], [facility] The Accu-Chek Inform II glucose meter has not been approved for testing on patients receiving intensive medical intervention or therapy and results from this point of care glucose test should not be used for patient management decisions in these cases. Inaccurate results may also occur from other interfering factors, such as N-acetylcysteine (blood concentrations of greater than 5mg/dL), galactose, extremes of hematocrit (<10 or >65), or high doses of ascorbic acid (vitamin C) greater than 3mg/dL. Consider alternate testing mechanisms (e.g. core lab, blood gas instrument) in the above situations. 08/08/2024 1:14 AM EDT us Dylon Ochoa MD POC TESTING Final Result [facility] [address] [place], [place] * EPIL EEG BEM - CONTINUOUS BEDSIDE W/VIDEO INCLUDES PORTABLE EEG READ (08/08/2024 12:00 AM EDT) 08/08/2024 Narrative NEUROLOGY - 08/09/2024 11:31 AM EDT [facility], Epilepsy [facility] EPIL EEG BEM - Continuous bedside w/video includes portable EEG read [[id number]] Patient name: SARAY CORBIN Date of test: 08/08/2024 Requested By: BLACK CARTER Staff Physician: Pavithra Givens EEG Fellow or Sobieski: Holly Khan History: Per record: Patient is 63 year old male with PMH of CHF, CAD, seizure d/o admitted with complaints of SAH. He was transferred here from an OSH due to a SAH after a fall to get Neurosurgery evaluation. EEG was ordered for: Altered mental status Etiology: Convulsions NOS Conditions: Awake Diagnosis: Primary: R41.82 Altered mental status, unspecified altered mental status type BEM Read Period: 08/08/2024 05:06:00 AM - 08/09/2024 05:01:00 AM Read duration: 1435 minutes Classifications: Abnormal III (10-20 Scalp Electrodes, CT-Compatible Electrodes, Anterior Temporal Electrodes, Awake) Interictal: Continuous Slow, Generalized, Maximum, Left Hemisphere Intermittent Rhythmic Slow, Generalized, Maximum, Bifrontal Region Impression: This bedside EEG was recorded from 0506 on 08/08/2024 until 0501 on 08/09/2024 and is suggestive of cerebral dysfunction maximum in the left hemisphere and a severe diffuse encephalopathy. No definite epileptiform discharges or EEG seizures were recorded. Interpreted and electronically signed by Pavithra Givens Date of signin08/09/2024 11:31 us Black Carter APRN.[facility] Final Result Performing Organization Address City/State/[facility] Co de Phone Number NEUROLOGY [address] [place] [address], * (ABNORMAL) GLUCOSE, BLOOD (POC) (08/07/2024 5:48 PM EDT) [facility] Glucose, Point of Care 161(A) 74 - 99 mg/dL [facility] Comment: Location:[facility], [address], [place], [facility] The Accu-Chek Inform II glucose meter has not been approved for testing on patients receiving intensive medical intervention or therapy and results from this point of care glucose test should not be used for patient management decisions in these cases. Inaccurate results may also occur from other interfering factors, such as N-acetylcysteine (blood concentrations of greater than 5mg/dL), galactose, extremes of hematocrit (<10 or >65), or high doses of ascorbic acid (vitamin C) greater than 3mg/dL. Consider alternate testing mechanisms (e.g. core lab, blood gas instrument) in the above situations. 08/07/2024 5:48 PM EDT Dylon Ochoa MD POC TESTING Final Result Performing Organization Address [facility] Co de Phone Number [facility] POINT OF CARE [facility] [id number] [place] [address] * (ABNORMAL) GLUCOSE, BLOOD (POC) (08/07/2024 12:07 PM EDT) Glucose, Point of Care 164(A) 74 - 99 mg/dL [facility] Comment: Location:[facility], [address] [place] [address], [facility] The Accu-Chek Inform II glucose meter has not been approved for testing on patients receiving intensive medical intervention or therapy and results from this point of care glucose test should not be used for patient management decisions in these cases. Inaccurate results may also occur from other interfering factors, such as N-acetylcysteine (blood concentrations of greater than 5mg/dL), galactose, extremes of hematocrit (<10 or >65), or high doses of ascorbic acid (vitamin C) greater than 3mg/dL. Consider alternate testing mechanisms (e.g. core lab, blood gas instrument) in the above situations. 08/07/2024 12:0 7 PM EDT Dylon Ochoa MD POC TESTING Final Result Performing Organization Address [facility] Co de Phone Number [facility] OF CARE [facility] [address] [place], [place] * (ABNORMAL) MAGNESIUM (08/07/2024 11:11 AM EDT) Magnesium 1.6(L) 1.7 - 2.3 mg/dL 08/07/2024 12:36 PM EDT [facility] Blood BLOOD SPECIMEN / Unknown Venipuncture / Unknown 08/07/2024 11:11 AM EDT 08/07/2024 12:12 PM EDT us Black Carter AUTO CLEANER.[facility] Final Result [facility] [address] [place] [address], * (ABNORMAL) RENAL FUNCTION PANEL (08/07/2024 11:11 AM EDT) Albumin 3.4(L) 3.9 - 4.9 g/dL 08/07/2024 12:36 PM EDT [facility] Calcium, Total 8.4(L) 8.5 - 10.2 mg/dL 08/07/2024 12:36 PM EDT [facility] Phosphorus 2.9 2.7 - 4.8 mg/dL 08/07/2024 12:36 PM EDT [facility] Glucose 126(H) 74 - 99 mg/dL 08/07/2024 12:36 PM EDT [facility] Comment: The [place] Diabetes [employer] (ADA) provides guidance for cutoff values for fasting glucose and random glucose. The ADA defines fasting as no caloric intake for at least 8 hours. Fasting plasma glucose results between 100 to 125 mg/dL indicate increased risk for diabetes (prediabetes). Fasting plasma glucose results greater than or equal to 126 mg/dL meet the criteria for diagnosis of diabetes. In the absence of unequivocal hyperglycemia, results should be confirmed by repeat testing. In a patient with classic symptoms of hyperglycemia or hyperglycemic crisis, random plasma glucose results greater than or equal to 200 mg/dL meet the criteria for diagnosis of diabetes. Reference: Standards of Medical Care in Diabetes 2016, [place] [employer]. Diabetes Care. 2016.39(Suppl 1). BUN 19 9 - 24 mg/dL 08/07/2024 12:36 PM EDT [facility] Creatinine 0.54(L) 0.73 - 1.22 mg/dL 08/07/2024 12:36 PM EDT [facility] Sodium 125(L) 136 - 144 mmol/L 08/07/2024 12:36 PM EDT [facility] Potassium 3.7 3.7 - 5.1 mmol/L 08/07/2024 12:36 PM EDT [facility] Chloride 95(L) 98 - 107 mmol/L 08/07/2024 12:36 PM EDT [facility] CO2 22 22 - 30 mmol/L 08/07/2024 12:36 PM EDT [facility] Anion Gap 8 8 - 15 mmol/L 08/07/2024 12:36 PM EDT [facility] Estimated Glomerular Filtration Rate 112 >=60 mL/min/1. 73m 08/07/2024 12:36 PM EDT [facility] Comment:Estimated Glomerular Filtration Rate (eGFR) is calculated using the 2020 CKD-EPI creatinine equation. This equation utilizes serum creatinine, sex, and age as parameters. The creatinine assay has traceable calibration to isotope dilution- mass spectrometry. Refer to KDIGO guidelines for clinical interpretation. In patients with unstable renal function, e.g. those with acute kidney injury, the eGFR may not accurately reflect actual GFR. Blood BLOOD SPECIMEN / Unknown Venipuncture / Unknown 08/07/2024 11:11 AM EDT 08/07/2024 12:12 PM EDT us Black Carter AUTO CLEANER.[facility] Final Result [facility] [address] [place] [address], * (ABNORMAL) COMPLETE BLOOD COUNT (08/07/2024 7:29 AM EDT) WBC 11.91(H) 3.70 - 11.00 k/uL 08/07/2024 7:52 AM EDT [facility] RBC 3.58(L) 4.20 - 6.00 m/uL 08/07/2024 7:52 AM EDT [facility] Hemoglobin 7.8(L) 13.0 - 17.0 g/dL 08/07/2024 7:52 AM EDT [facility] Hematocrit 25.6(L) 39.0 - 51.0 % 08/07/2024 7:52 AM EDT [facility] MCV 71.5(L) 80.0 - 100.0 fL 08/07/2024 7:52 AM EDT [facility] MCH 21.8(L) 26.0 - 34.0 pg 08/07/2024 7:52 AM EDT [facility] MCHC 30.5 30.5 - 36.0 g/dL 08/07/2024 7:52 AM EDT [facility] RDW-CV 20.9(H) 11.5 - 15.0 % 08/07/2024 7:52 AM EDT [facility] Platelet Count 524(H) 150 - 400 k/uL 08/07/2024 7:52 AM EDT [facility] MPV 9.1 9.0 - 12.7 fL 08/07/2024 7:52 AM EDT [facility] Absolute nRBC <0.01 <0.01 k/uL 08/07/2024 7:52 AM EDT [facility] Blood BLOOD SPECIMEN / Unknown Venipuncture / Unknown 08/07/2024 7:29 AM EDT 08/07/2024 7:44 AM EDT Raiza Bates APRN.[facility] Final R esult Performing Organization Address City/State/[facility] [place] [address], * (ABNORMAL) GLUCOSE, BLOOD (POC) (08/07/2024 5:32 AM EDT) [facility] Glucose, Point of Care 130(A) 74 - 99 mg/dL [facility] Comment: Location:[facility], [address] [place] [address] The Accu-Chek Inform II glucose meter has not been approved for testing on patients receiving intensive medical intervention or therapy and results from this point of care glucose test should not be used for patient management decisions in these cases. Inaccurate results may also occur from other interfering factors, such as N-acetylcysteine (blood concentrations of greater than 5mg/dL), galactose, extremes of hematocrit (<10 or >65), or high doses of ascorbic acid (vitamin C) greater than 3mg/dL. Consider alternate testing mechanisms (e.g. core lab, blood gas instrument) in the above situations. 08/07/2024 5:32 AM EDT Dylon Ochoa MD POC TESTING Final Result [facility] POINT OF CARE [facility] [address] [place], [place] * EPIL EEG BEDSIDE/PORTABLE - 20 MINUTE ONLY W/VIDEO (08/07/2024 12:00 AM EDT) 08/07/2024 Narrative NEUROLOGY - 08/07/2024 3:50 PM EDT [facility], Epilepsy Center EPIL EEG Bedside/Portable - 20 minute only w/video [[id number]] Patient name: SARAY CORBIN Start of test: 08/07/2024 14:15 End of test: 08/07/2024 14:38 Duration: 0 hr 23 min Requested By: BLACK CARTER Staff Physician: Pavithra Givens EEG Fellow or Sobieski: Yariel Mcelroy History: Per record: Patient is 63 year old male with PMH of CHF, CAD, seizure d/o admitted with complaints of SAH. He was transferred here from an OSH due to a SAH after a fall to get Neurosurgery evaluation. EEG was ordered for: Altered mental status Etiology: Subarachnoid Hemorrhage Conditions: Lethargy Classifications: Abnormal III (10-20 Scalp Electrodes, CT-Compatible Electrodes, Anterior Temporal Electrodes, Lethargy) Interictal: Continuous Slow, Generalized, Maximum, Bifrontal Impression: This EEG is suggestive of a severe diffuse encephalopathy. No epileptiform discharges or EEG seizures were recorded. Seizure monitoring is needed in order to develop or modify treatment. Diagnosis: Primary: R41.82 Altered mental status, unspecified altered mental status type Interpreted and electronically signed by Pavithra Givens Date of signin08/07/2024 15:50 us Black Carter AUTO CLEANER.[facility] Final Result NEUROLOGY [address] [place] [address], * EPIL EEG BEM - CONTINUOUS BEDSIDE W/VIDEO INCLUDES PORTABLE EEG READ (08/07/2024 12:00 AM EDT) 08/07/2024 Narrative NEUROLOGY - 08/08/2024 11:47 AM EDT [facility] EPIL EEG BEM - Continuous bedside w/video includes portable EEG read [[id number]] Patient name: SARAY CORBIN Date of test: 08/07/2024 Requested By: BLACK CARTER Staff Physician: Pavithra Givens EEG Fellow or Sobieski: Alanna Fernandez History: Per record: Patient is 63 year old male with PMH of CHF, CAD, seizure d/o admitted with complaints of SAH. He was transferred here from an OSH due to a SAH after a fall to get Neurosurgery evaluation. EEG was ordered for: Altered mental status Etiology: Subarachnoid Hemorrhage Conditions: Awake Diagnosis: Primary: R41.82 Altered mental status, unspecified altered mental status type BEM Read Period: 08/07/2024 02:39:00 PM - 08/08/2024 05:05:00 AM Read duration: 866 minutes Classifications: Abnormal III (10-20 Scal[address] Electrodes, [address]-Compatible Electrodes, Anterior Temporal Electrodes, Awake) Interictal: Continuous Slow, Generalized, Maximum, Left Hemisphere Intermittent Rhythmic Slow, Generalized, Maximum, Bifrontal Region Impression: This bedside EEG was recorded from 1439 on 08/07/2024 to 0505 on 08/08/2024 and is suggestive of bilateral cortical dysfunction maximum in the left hemisphere and a severe diffuse encephalopathy. No definite epileptiform discharges or EEG seizures were recorded. Interpreted and electronically signed by Pavithra Givens Date of signin08/08/2024 11:47 us Black Carter AUTO CLEANER.[facility] Final Result NEUROLOGY [address] [place] [address], * EPIL EEG BEDSIDE/PORTABLE - 20 MINUTE ONLY W/VIDEO (08/07/2024 12:00 AM EDT) 08/07/2024 Narrative NEUROLOGY - 08/07/2024 4:37 AM EDT [facility] EPIL EEG Bedside/Portable - 20 minute only w/video [[id number]] Patient name: SRAAY CORBIN Start of test: 08/07/2024 01:54 End of test: 08/07/2024 02:17 Duration: 0 hr 23 min Requested By: RAIZA BATES Staff Physician: Azucena Rahman EEG Fellow or Sobieski: Matt Fernandez History: Per record: Patient is 63 year old male with PMH of CHF, CAD, seizure d/o admitted with complaints of SAH. He was transferred here from an OSH due to a SAH after a fall to get Neurosurgery evaluation. His Sodium has been low at 128 prompting his consult. He is sleepy and unable to provide any history. He is on Lexapro as an outpatient. He is on TFs and not taking food by mouth.EEG was ordered for: Altered mental status Etiology: Subarachnoid Hemorrhage Conditions: Lethargy Classifications: Abnormal III (10-20 Scalp Electrodes, CT-Compatible Electrodes, Anterior Temporal Electrodes, Lethargy) Interictal: Continuous Slow, Generalized and regional, left frontotemporal Impression: This EEG is suggestive of a cortical dysfunction in the left fronto-temporal region. There is also evidence of a severe diffuse encephalopathy. No epileptiform discharges or EEG seizures were recorded. Diagnosis: Primary: R41.82 Altered mental status, unspecified altered mental status type Interpreted and electronically signed by Azucena Rahman Date of signin08/07/2024 04:37 us Raiza Bates AUTO CLEANER.[facility] WR[facility] NEUROLOGY Final R esult NEUROLOGY [address] [place] [address], * (ABNORMAL) GLUCOSE, BLOOD (POC) (08/06/2024 11:55 PM EDT) Glucose, Point of Care 141(A) 74 - 99 mg/dL [facility] Comment: Location:[facility], [address] [place] [address], [facility] The Accu-Chek Inform II glucose meter has not been approved for testing on patients receiving intensive medical intervention or therapy and results from this point of care glucose test should not be used for patient management decisions in these cases. Inaccurate results may also occur from other interfering factors, such as N-acetylcysteine (blood concentrations of greater than 5mg/dL), galactose, extremes of hematocrit (<10 or >65), or high doses of ascorbic acid (vitamin C) greater than 3mg/dL. Consider alternate testing mechanisms (e.g. core lab, blood gas instrument) in the above situations. 08/06/2024 11:5 5 PM EDT us Dylon Ochoa MD POC TESTING Final Result [facility] POINT OF CARE [address] * (ABNORMAL) GLUCOSE, BLOOD (POC) (08/06/2024 6:07 PM EDT) Glucose, Point of Care 135(A) 74 - 99 mg/dL [facility] Comment: Location:[facility], [address] [place] [address], [facility] The Accu-Chek Inform II glucose meter has not been approved for testing on patients receiving intensive medical intervention or therapy and results from this point of care glucose test should not be used for patient management decisions in these cases. Inaccurate results may also occur from other interfering factors, such as N-acetylcysteine (blood concentrations of greater than 5mg/dL), galactose, extremes of hematocrit (<10 or >65), or high doses of ascorbic acid (vitamin C) greater than 3mg/dL. Consider alternate testing mechanisms (e.g. core lab, blood gas instrument) in the above situations. 08/06/2024 6:07 PM EDT us Dylon Ochoa MD POC TESTING Final Result Performing Organization Address [facility]/ZIP Co de Phone Number [facility] POINT OF CARE [facility] [address] [place], [place] * SODIUM RANDOM URINE (08/06/2024 2:52 PM EDT) Sodium, Urine Random 170 14 - 216 mmol/L 08/07/2024 8:25 AM EDT [facility] Urine URINE SPECIMEN / Unknown Non Blood / Unknown 08/06/2024 2:52 PM EDT 08/06/2024 2:59 PM EDT Raiza Bates APRN.[facility] Final R esult Performing Organization Address [facility] Co de Phone Number [facility] [address] [address], [place] * OSMOLALITY URINE (08/06/2024 2:52 PM EDT) Osmolality, Urine 596 50 - 1,200 mOsm/kg 08/06/2024 3:31 PM EDT [facility] Urine URINE SPECIMEN / Unknown Non Blood / Unknown 08/06/2024 2:52 PM EDT 08/06/2024 2:59 PM EDT Raiza Bates APRN.CNP LABORATORY Final R esult Performing Organization Address [facility] Co de Phone Number [facility] [address] [place] [address], [place] * (ABNORMAL) GLUCOSE, BLOOD (POC) (08/06/2024 12:08 PM EDT) [facility] Glucose, Point of Care 132(A) 74 - 99 mg/dL [facility] Comment: Location:[facility], [address] [place], [place], [address] The Accu-Chek Inform II glucose meter has not been approved for testing on patients receiving intensive medical intervention or therapy and results from this point of care glucose test should not be used for patient management decisions in these cases. Inaccurate results may also occur from other interfering factors, such as N-acetylcysteine (blood concentrations of greater than 5mg/dL), galactose, extremes of hematocrit (<10 or >65), or high doses of ascorbic acid (vitamin C) greater than 3mg/dL. Consider alternate testing mechanisms (e.g. core lab, blood gas instrument) in the above situations. 08/06/2024 12:0 8 PM EDT Dylon Ochoa MD POC TESTING Final Result [facility] POINT OF CARE [facility] [address] [address] [place], [place] * CT BRAIN WO IVCON (08/06/2024 11:02 AM EDT) Anatomical Region Laterality Modality Head Computed Tomogra phy 08/06/2024 11:0 2 AM EDT Impressions 08/06/2024 12:11 PM EDT IMPRESSION: LAYERING HYPERDENSE INTRAVENTRICULAR HEMORRHAGE WITHIN THE OCCIPITAL HORN OF THE LEFT LATERAL VENTRICLE, MILDLY INCREASED SINCE 08/01/2024, PROBABLY RELATED TO REDISTRIBUTION. INTERVAL RESOLUTION OF MILD INTRAVENTRICULAR HEMORRHAGE WITHIN THE OCCIPITAL HORN OF THE RIGHT LATERAL VENTRICLE AND RESOLVING HYPERDENSE INTRAVENTRICULAR HEMORRHAGE WITHIN THE LEFT LATERAL VENTRICLE AND FOURTH VENTRICLE, IMPROVED SINCE 08/01/2024. TRACE LINEAR SUBDURAL HEMORRHAGE ALONG THE LEFT TENTORIUM, IMPROVED SINCE 08/01/2024. Front End Assistant: ANGE Transcribe Date/Time: Aug 06 2024 11:56A Dictated by : ELEUTERIO CÁRDENAS MD This examination was interpreted and the report reviewed and electronically signed by: ELEUTERIO CÁRDENAS MD on Aug 06 2024 12:09PM EST Narrative 08/06/2024 12:11 PM EDT * * *Final Report* * * DATE OF EXAM: Aug 06 2024 11:02AM [facility] 0504 - CT BRAIN WO IVCON / PROCEDURE REASON: Mental status change, unknown cause * * * * Physician Interpretation * * * * EXAMINATION: CT BRAIN WO IVCON CLINICAL HISTORY: Mental status change TECHNIQUE: Serial axial images without IV contrast were obtained from the vertex to the foramen magnum. MQ: CTBWO_3 CT Radiation dose: Integrated Dose-Length Product (DLP) for this visit = 764 mGy*cm CT Dose Reduction Employed: Automated exposure control (AEC) COMPARISON: Brain MRI dated 08/01/2024; head CT dated 08/01/2024, 07/31/2024, 04/30/2022 RESULT: Post-operative change: None. There is interval removal of overlying EEG since 08/01/2024 Acute change: No evidence of an acute infarct or other acute parenchymal process. Hemorrhage: There is layering hyperdense intraventricular hemorrhage within the occipital horn of the left lateral ventricle, mildly increased since 08/01/2024, probably related to redistribution. There is interval resolution of mild intraventricular hemorrhage within the occipital horn of the right lateral ventricle and resolving hyperdense intraventricular hemorrhage within the left lateral ventricle and fourth ventricle, improved since 08/01/2024. There is trace linear subdural hemorrhage along the left tentorium (2:13), improved since 08/01/2024. Mass Lesion / Mass Effect: There is no evidence of an intracranial mass or extraaxial fluid collection. No significant mass effect. Chronic change: Scattered patchy foci of low attenuation are present within the supratentorial white matter, a nonspecific finding that most commonly represents mild small vessel disease. Parenchyma: There is mild generalized volume loss. Ventricles: Ventricular enlargement concordant with the degree of parenchymal volume loss. Paranasal sinuses and skull base: The visualized paranasal sinuses demonstrate moderate hyperdense soft tissue opacification of the right maxillary and left sphenoid sinuses, stable. The skull base and imaged soft tissues are unremarkable. Localizer images: The right nasogastric tube is new since 08/01/2024. Procedure Note Provider, [facility] [place] - 08/06/2024 * * *Final Report* * * DATE OF EXAM: Aug 06 2024 11:02AM [facility]VC 0504 - CT BRAIN WO IVCON / PROCEDURE REASON: Mental status change, unknown cause * * * * Physician Interpretation * * * * EXAMINATION: CT BRAIN WO IVCON CLINICAL HISTORY: Mental status change TECHNIQUE: Serial axial images without IV contrast were obtained from the vertex to the foramen magnum. MQ: CTBWO_3 CT Radiation dose: Integrated Dose-Length Product (DLP) for this visit = 764 mGy*cm CT Dose Reduction Employed: Automated exposure control (AEC) COMPARISON: Brain MRI dated 08/01/2024; head CT dated 08/01/2024, 07/31/2024, 04/30/2022 RESULT: Post-operative change: None. There is interval removal of overlying EEG since 08/01/2024 Acute change: No evidence of an acute infarct or other acute parenchymal process. Hemorrhage: There is layering hyperdense intraventricular hemorrhage within the occipital horn of the left lateral ventricle, mildly increased since 08/01/2024, probably related to redistribution. There is interval resolution of mild intraventricular hemorrhage within the occipital horn of the right lateral ventricle and resolving hyperdense intraventricular hemorrhage within the left lateral ventricle and fourth ventricle, improved since 08/01/2024. There is trace linear subdural hemorrhage along the left tentorium (2:13), improved since 08/01/2024. Mass Lesion / Mass Effect: There is no evidence of an intracranial mass or extraaxial fluid collection. No significant mass effect. Chronic change: Scattered patchy foci of low attenuation are present within the supratentorial white matter, a nonspecific finding that most commonly represents mild small vessel disease. Parenchyma: There is mild generalized volume loss. Ventricles: Ventricular enlargement concordant with the degree of parenchymal volume loss. Paranasal sinuses and skull base: The visualized paranasal sinuses demonstrate moderate hyperdense soft tissue opacification of the right maxillary and left sphenoid sinuses, stable. The skull base and imaged soft tissues are unremarkable. Localizer images: The right nasogastric tube is new since 08/01/2024. IMPRESSION IMPRESSION: LAYERING HYPERDENSE INTRAVENTRICULAR HEMORRHAGE WITHIN THE OCCIPITAL HORN OF THE LEFT LATERAL VENTRICLE, MILDLY INCREASED SINCE 08/01/2024, PROBABLY RELATED TO REDISTRIBUTION. INTERVAL RESOLUTION OF MILD INTRAVENTRICULAR HEMORRHAGE WITHIN THE OCCIPITAL HORN OF THE RIGHT LATERAL VENTRICLE AND RESOLVING HYPERDENSE INTRAVENTRICULAR HEMORRHAGE WITHIN THE LEFT LATERAL VENTRICLE AND FOURTH VENTRICLE, IMPROVED SINCE 08/01/2024. TRACE LINEAR SUBDURAL HEMORRHAGE ALONG THE LEFT TENTORIUM, IMPROVED SINCE 08/01/2024. Front End Assistant: PSCB Transcribe Date/Time: Aug 06 2024 11:56A Dictated by : ELEUTERIO CÁRDENAS MD This examination was interpreted and the report reviewed and electronically signed by: ELEUTERIO CÁRDENAS MD on Aug 06 2024 12:09PM EST us Raiza Bates AUTO CLEANER.KENO WRITER CT-PAMA Final R esult * (ABNORMAL) OSMOLALITY (08/06/2024 8:22 AM EDT) Osmolality 269(L) 275 - 300 mOsm/kg 08/06/2024 9:04 AM EDT [facility] Blood BLOOD SPECIMEN / Unknown Venipuncture / Unknown 08/06/2024 8:22 AM EDT 08/06/2024 8:52 AM EDT Raiza Bates AUTO CLEANER.[facility] Final R esult Performing Organization Address [facility] Co de Phone Number [facility] [address] [place] [address], * (ABNORMAL) MAGNESIUM (08/06/2024 7:42 AM EDT) Magnesium 1.5(L) 1.7 - 2.3 mg/dL 08/06/2024 8:40 AM EDT [facility] Blood BLOOD SPECIMEN / Unknown Venipuncture / Unknown 08/06/2024 7:42 AM EDT 08/06/2024 8:24 AM EDT Black Carter AUTO CLEANER.[facility] Final Result Performing Organization Address [facility] de Phone Number [facility] [id number] [place] [address], * (ABNORMAL) RENAL FUNCTION PANEL (08/06/2024 7:42 AM EDT) Albumin 3.4(L) 3.9 - 4.9 g/dL 08/06/2024 8:40 AM EDT [facility] Calcium, Total 8.4(L) 8.5 - 10.2 mg/dL 08/06/2024 8:40 AM EDT [facility] Phosphorus 3.2 2.7 - 4.8 mg/dL 08/06/2024 8:40 AM EDT [facility] Glucose 117(H) 74 - 99 mg/dL 08/06/2024 8:40 AM EDT [facility] Comment: The [place] [employer] (ADA) provides guidance for cutoff values for fasting glucose and random glucose. The ADA defines fasting as no caloric intake for at least 8 hours. Fasting plasma glucose results between 100 to 125 mg/dL indicate increased risk for diabetes (prediabetes). Fasting plasma glucose results greater than or equal to 126 mg/dL meet the criteria for diagnosis of diabetes. In the absence of unequivocal hyperglycemia, results should be confirmed by repeat testing. In a patient with classic symptoms of hyperglycemia or hyperglycemic crisis, random plasma glucose results greater than or equal to 200 mg/dL meet the criteria for diagnosis of diabetes. Reference: Standards of Medical Care in Diabetes 2016, [place] [employer]. Diabetes Care. 2016.39(Suppl 1). BUN 8(L) 9 - 24 mg/dL 08/06/2024 8:40 AM [facility] Creatinine 0.51(L) 0.73 - 1.22 mg/dL 08/06/2024 8:40 AM [facility] Sodium 128(L) 136 - 144 mmol/L 08/06/2024 8:40 AM [facility] Potassium 4.0 3.7 - 5.1 mmol/L 08/06/2024 8:40 AM [facility] Chloride 94(L) 98 - 107 mmol/L 08/06/2024 8:40 AM [facility] CO2 22 22 - 30 mmol/L 08/06/2024 8:40 AM [facility] Anion Gap 12 8 - 15 mmol/L 08/06/2024 8:40 AM [facility] Estimated Glomerular Filtration Rate 114 >=60 mL/min/1. 73m 08/06/2024 8:40 AM [facility] Comment:Estimated Glomerular Filtration Rate (eGFR) is calculated using the 2020 CKD-EPI creatinine equation. This equation utilizes serum creatinine, sex, and age as parameters. The creatinine assay has traceable calibration to isotope dilution- mass spectrometry. Refer to KDIGO guidelines for clinical interpretation. In patients with unstable renal function, e.g. those with acute kidney injury, the eGFR may not accurately reflect actual GFR. Blood BLOOD SPECIMEN / Unknown Venipuncture / Unknown 08/06/2024 7:42 AM EDT 08/06/2024 8:24 AM EDT us Black Carter AUTO CLEANER.[facility] Final Result Performing Organization Address City/State/[facility] Co de Phone Number [facility] [address] * (ABNORMAL) GLUCOSE, BLOOD (POC) (08/06/2024 6:38 AM EDT) Pathologist [facility] Glucose, Point of Care 132(A) 74 - 99 mg/dL [facility] Comment: Location:[facility], [address] [place] [address] The Accu-Chek Inform II glucose meter has not been approved for testing on patients receiving intensive medical intervention or therapy and results from this point of care glucose test should not be used for patient management decisions in these cases. Inaccurate results may also occur from other interfering factors, such as N-acetylcysteine (blood concentrations of greater than 5mg/dL), galactose, extremes of hematocrit (<10 or >65), or high doses of ascorbic acid (vitamin C) greater than 3mg/dL. Consider alternate testing mechanisms (e.g. core lab, blood gas instrument) in the above situations. 08/06/2024 6:38 AM EDT Dylon Ochoa MD POC TESTING Final Result Performing Organization Address [facility] Co de Phone Number [facility] [id number] [place] [address] * (ABNORMAL) GLUCOSE, BLOOD (POC) (08/06/2024 6:09 AM EDT) Pathologist [facility] Glucose, Point of Care 138(A) 74 - 99 mg/dL [facility] Comment: Location:[facility], [address] [place] [address] The Accu-Chek Inform II glucose meter has not been approved for testing on patients receiving intensive medical intervention or therapy and results from this point of care glucose test should not be used for patient management decisions in these cases. Inaccurate results may also occur from other interfering factors, such as N-acetylcysteine (blood concentrations of greater than 5mg/dL), galactose, extremes of hematocrit (<10 or >65), or high doses of ascorbic acid (vitamin C) greater than 3mg/dL. Consider alternate testing mechanisms (e.g. core lab, blood gas instrument) in the above situations. 08/06/2024 6:09 AM EDT us Dylon Ochoa MD POC TESTING Final Result Performing Organization Address [facility] Co de Phone Number [facility] [address] [place], [place] * (ABNORMAL) GLUCOSE, BLOOD (POC) (08/05/2024 11:59 PM EDT) Glucose, Point of Care 120(A) 74 - 99 mg/dL [facility] Comment: Location:[facility], [address] [place], [place], [facility] The Accu-Chek Inform II glucose meter has not been approved for testing on patients receiving intensive medical intervention or therapy and results from this point of care glucose test should not be used for patient management decisions in these cases. Inaccurate results may also occur from other interfering factors, such as N-acetylcysteine (blood concentrations of greater than 5mg/dL), galactose, extremes of hematocrit (<10 or >65), or high doses of ascorbic acid (vitamin C) greater than 3mg/dL. Consider alternate testing mechanisms (e.g. core lab, blood gas instrument) in the above situations. 08/05/2024 11:5 9 PM EDT Dylon Ochoa MD POC TESTING Final Result Performing Organization Address [facility] Co de Phone Number [facility] [address] [place], [place] * MAGNESIUM (08/05/2024 7:59 PM EDT) Magnesium 1.7 1.7 - 2.3 mg/dL 08/05/2024 8:30 PM EDT [facility] Blood BLOOD SPECIMEN / Unknown Venipuncture / Unknown 08/05/2024 7:59 PM EDT 08/05/2024 8:02 PM EDT Black Carter APRN.[facility] Final Result [facility] [address] [place] [address], * (ABNORMAL) RENAL FUNCTION PANEL (08/05/2024 7:59 PM EDT) Albumin 3.3(L) 3.9 - 4.9 g/dL 08/05/2024 8:30 PM EDT [facility] Calcium, Total 8.4(L) 8.5 - 10.2 mg/dL 08/05/2024 8:30 PM EDT [facility] Phosphorus 3.1 2.7 - 4.8 mg/dL 08/05/2024 8:30 PM EDT [facility] LABORATORY Glucose 121(H) 74 - 99 mg/dL 08/05/2024 8:30 PM EDT [facility] Comment: The [place] [employer] (ADA) provides guidance for cutoff values for fasting glucose and random glucose. The ADA defines fasting as no caloric intake for at least 8 hours. Fasting plasma glucose results between 100 to 125 mg/dL indicate increased risk for diabetes (prediabetes). Fasting plasma glucose results greater than or equal to 126 mg/dL meet the criteria for diagnosis of diabetes. In the absence of unequivocal hyperglycemia, results should be confirmed by repeat testing. In a patient with classic symptoms of hyperglycemia or hyperglycemic crisis, random plasma glucose results greater than or equal to 200 mg/dL meet the criteria for diagnosis of diabetes. Reference: Standards of Medical Care in Diabetes 2016, [place] [employer]. Diabetes Care. 2016.39(Suppl 1). BUN 7(L) 9 - 24 mg/dL 08/05/2024 8:30 PM EDT [facility] Creatinine 0.50(L) 0.73 - 1.22 mg/dL 08/05/2024 8:30 PM EDT [facility] Sodium 128(L) 136 - 144 mmol/L 08/05/2024 8:30 PM EDT [facility] Potassium 4.0 3.7 - 5.1 mmol/L 08/05/2024 8:30 PM EDT [facility] Chloride 94(L) 98 - 107 mmol/L 08/05/2024 8:30 PM EDT [facility] CO2 22 22 - 30 mmol/L 08/05/2024 8:30 PM EDT [facility] Anion Gap 12 8 - 15 mmol/L 08/05/2024 8:30 PM EDT [facility] Estimated Glomerular Filtration Rate 115 >=60 mL/min/1. 73m 08/05/2024 8:30 PM EDT [facility] Comment:Estimated Glomerular Filtration Rate (eGFR) is calculated using the 2020 CKD-EPI creatinine equation. This equation utilizes serum creatinine, sex, and age as parameters. The creatinine assay has traceable calibration to isotope dilution- mass spectrometry. Refer to KDIGO guidelines for clinical interpretation. In patients with unstable renal function, e.g. those with acute kidney injury, the eGFR may not accurately reflect actual GFR. Blood BLOOD SPECIMEN / Unknown Venipuncture / Unknown 08/05/2024 7:59 PM EDT 08/05/2024 8:02 PM EDT us Black Carter APRN.[facility] Final Result Performing Organization Address [facility] [place] [address], * (ABNORMAL) GLUCOSE, BLOOD (POC) (08/05/2024 5:57 PM EDT) [facility], Point of Care 125(A) 74 - 99 mg/dL [facility] Comment: Location:[facility], [address] [place] [address], [facility] The Accu-Chek Inform II glucose meter has not been approved for testing on patients receiving intensive medical intervention or therapy and results from this point of care glucose test should not be used for patient management decisions in these cases. Inaccurate results may also occur from other interfering factors, such as N-acetylcysteine (blood concentrations of greater than 5mg/dL), galactose, extremes of hematocrit (<10 or >65), or high doses of ascorbic acid (vitamin C) greater than 3mg/dL. Consider alternate testing mechanisms (e.g. core lab, blood gas instrument) in the above situations. 08/05/2024 5:57 PM EDT us Dylon Ochoa MD POC TESTING Final Result Performing Organization Address [facility] Co de Phone Number [facility] POINT OF CARE [address] [place], [place] * XR MODIFIED BARIUM SWALLOW W SPEECH THERAPY (08/05/2024 2:01 PM EDT) Anatomical Region Laterality Modality Neck Radiographic Adriana ging 08/05/2024 2:01 PM EDT Impressions 08/05/2024 2:21 PM EDT IMPRESSION: The speech pathologist report and recommendations are present in the notes component of [facility] Front End Assistant: PSCB Transcribe Date/Time: Aug 05 2024 2:19P Dictated by : GUSTAVO QUINTANA MD This examination was interpreted and the report reviewed and electronically signed by: GUSTAVO QUINTANA MD on Aug 05 2024 2:19PM EST Narrative 08/05/2024 2:21 PM EDT * * *Final Report* * * DATE OF EXAM: Aug 05 2024 2:01PM [id number] - XR MOD BARIUM SWALLOW W SPEECH / PROCEDURE REASON: Dysphagia, unexplained * * * * Physician Interpretation * * * * Modified barium swallow CLINICAL: dysphagia TECHNIQUE: Fluoroscopy radiation summary: Fluoroscopy time: 2:26 (min:sec). Air kerma: 60.1 mGy. RESULT: Fluoroscopy was provided during performance of swallowing evaluation by speech pathologist Procedure Note Provider, [facility] [place] - 08/05/2024 * * *Final Report* * * DATE OF EXAM: Aug 05 2024 2:01PM [id number] - XR MOD BARIUM SWALLOW W SPEECH / PROCEDURE REASON: Dysphagia, unexplained * * * * Physician Interpretation * * * * Modified barium swallow CLINICAL: dysphagia TECHNIQUE: Fluoroscopy radiation summary: Fluoroscopy time: 2:26 (min:sec). Air kerma: 60.1 mGy. RESULT: Fluoroscopy was provided during performance of swallowing evaluation by speech pathologist IMPRESSION IMPRESSION: The speech pathologist report and recommendations are present in the notes component of [facility] Front End Assistant: PSCB Transcribe Date/Time: Aug 05 2024 2:19P Dictated by : GUSTAVO QUINTANA MD This examination was interpreted and the report reviewed and electronically signed by: GUSTAVO QUINTANA MD on Aug 05 2024 2:19PM EST us Black Carter APRN.KENO WRITER RAD-PAMA Final Result * (ABNORMAL) GLUCOSE, BLOOD (POC) (08/05/2024 12:19 PM EDT) [facility] Glucose, Point of Care 137(A) 74 - 99 mg/dL [facility] Comment: Location:[facility], [address] [place], [place], [address] The Accu-Chek Inform II glucose meter has not been approved for testing on patients receiving intensive medical intervention or therapy and results from this point of care glucose test should not be used for patient management decisions in these cases. Inaccurate results may also occur from other interfering factors, such as N-acetylcysteine (blood concentrations of greater than 5mg/dL), galactose, extremes of hematocrit (<10 or >65), or high doses of ascorbic acid (vitamin C) greater than 3mg/dL. Consider alternate testing mechanisms (e.g. core lab, blood gas instrument) in the above situations. 08/05/2024 12:1 9 PM EDT us Dylon Ochoa MD POC TESTING Final Result [facility] POINT OF CARE [facility] [address] [place], [place] * ECG COMPLETE (08/05/2024 8:48 AM EDT) [facility] Ventricular Rate 99 BPM [facility] Atrial Rate 99 BPM [facility] P-R Interval 130 ms [facility] QRS Duration 95 ms [facility] QT Interval 379 ms [facility] QTC Calculation (Bazett) 487 ms [facility] Calculated P [place] 50 degrees [facility] Calculated R [place] -41 degrees [facility] Calculated T [place] 63 degrees [facility] 08/05/2024 8:48 AM EDT Impressions [facility] - 08/05/2024 2:44 PM EDT Sinus rhythm Probable left atrial enlargement Left anterior fascicular block Left ventricular hypertrophy Anterior infarct, old Abnormal ECG Confirmed by JESIKA HUMMEL M.D. ([id number]) on 08/05/2024 2:44:17 PM Narrative [facility] - 08/05/2024 2:44 PM EDT NAME : SARAY CORBIN PID : [id number] : 1960 Gender : Male Race : ORD : [id number] Procedure Date : Aug 05 2024 08:48:03 Edit Date : Aug 05 2024 14:44:19 Diagnosis: Sinus rhythm Probable left atrial enlargement Left anterior fascicular block Left ventricular hypertrophy Anterior infarct, old Abnormal ECG Confirmed by JESIKA HUMMEL M.D. ([id number]) on 08/05/2024 2:44:17 PM Test Reason : Check QT Location : 400 : [facility] PKTB Overread By : JESIKA HUMMEL M.D. Edited By : JESIKA HUMMEL M.D. Referred By : MILLY GALVAN JR Acquired by : PHIL DORSEY us Black Carter APRN.KENO WRITER EKG Final Result Performing Organization Address [facility] Co de Phone Number [facility] [address] [place] [address] * (ABNORMAL) MAGNESIUM (08/05/2024 6:19 AM EDT) Magnesium 1.6(L) 1.7 - 2.3 mg/dL 08/05/2024 7:29 AM EDT [facility] Blood BLOOD SPECIMEN / Unknown Venipuncture / Unknown 08/05/2024 6:19 AM EDT 08/05/2024 7:02 AM EDT us Black Carter APRN.[facility] Final Result Performing Organization Address [facility] Co de Phone Number [facility] [address] * (ABNORMAL) RENAL FUNCTION PANEL (08/05/2024 6:19 AM EDT) Albumin 3.1(L) 3.9 - 4.9 g/dL 08/05/2024 7:29 AM EDT [facility] Calcium, Total 8.5 8.5 - 10.2 mg/dL 08/05/2024 7:29 AM EDT [facility] Phosphorus 3.1 2.7 - 4.8 mg/dL 08/05/2024 7:29 AM [facility] Glucose 124(H) 74 - 99 mg/dL 08/05/2024 7:29 AM [facility] Comment: The [place] Diabetes [employer] (ADA) provides guidance for cutoff values for fasting glucose and random glucose. The ADA defines fasting as no caloric intake for at least 8 hours. Fasting plasma glucose results between 100 to 125 mg/dL indicate increased risk for diabetes (prediabetes). Fasting plasma glucose results greater than or equal to 126 mg/dL meet the criteria for diagnosis of diabetes. In the absence of unequivocal hyperglycemia, results should be confirmed by repeat testing. In a patient with classic symptoms of hyperglycemia or hyperglycemic crisis, random plasma glucose results greater than or equal to 200 mg/dL meet the criteria for diagnosis of diabetes. Reference: Standards of Medical Care in Diabetes 2016, [place] [employer]. Diabetes Care. 2016.39(Suppl 1). BUN 7(L) 9 - 24 mg/dL 08/05/2024 7:29 AM [facility] Creatinine 0.50(L) 0.73 - 1.22 mg/dL 08/05/2024 7:29 AM [facility] Sodium 129(L) 136 - 144 mmol/L 08/05/2024 7:29 AM [facility] Potassium 3.8 3.7 - 5.1 mmol/L 08/05/2024 7:29 AM [facility] Chloride 96(L) 98 - 107 mmol/L 08/05/2024 7:29 AM [facility] CO2 22 22 - 30 mmol/L 08/05/2024 7:29 AM [facility] Anion Gap 11 8 - 15 mmol/L 08/05/2024 7:29 AM [facility] Estimated Glomerular Filtration Rate 115 >=60 mL/min/1. 73m 08/05/2024 7:29 AM [facility] Comment:Estimated Glomerular Filtration Rate (eGFR) is calculated using the 2020 CKD-EPI creatinine equation. This equation utilizes serum creatinine, sex, and age as parameters. The creatinine assay has traceable calibration to isotope dilution- mass spectrometry. Refer to KDIGO guidelines for clinical interpretation. In patients with unstable renal function, e.g. those with acute kidney injury, the eGFR may not accurately reflect actual GFR. Blood BLOOD SPECIMEN / Unknown Venipuncture / Unknown 08/05/2024 6:19 AM EDT 08/05/2024 7:02 AM EDT Black Carter APRN.[facility] Final Result Performing Organization Address [facility] de Phone Number [facility] [address] [place] [address], * (ABNORMAL) GLUCOSE, BLOOD (POC) (08/05/2024 5:59 AM EDT) Glucose, Point of Care 133(A) 74 - 99 mg/dL [facility] Comment: Location:[facility], [address] [place] [address], [facility] The Accu-Chek Inform II glucose meter has not been approved for testing on patients receiving intensive medical intervention or therapy and results from this point of care glucose test should not be used for patient management decisions in these cases. Inaccurate results may also occur from other interfering factors, such as N-acetylcysteine (blood concentrations of greater than 5mg/dL), galactose, extremes of hematocrit (<10 or >65), or high doses of ascorbic acid (vitamin C) greater than 3mg/dL. Consider alternate testing mechanisms (e.g. core lab, blood gas instrument) in the above situations. 08/05/2024 5:59 AM EDT Dylon Ochoa MD POC TESTING Final Result Performing Organization Address [facility] de Phone Number [facility] POINT OF CARE [facility] [address] [place], [place] * (ABNORMAL) GLUCOSE, BLOOD (POC) (08/05/2024 12:19 AM EDT) Glucose, Point of Care 133(A) 74 - 99 mg/dL [facility] Comment: Location:[facility], [address] [place] [address], [address] The Accu-Chek Inform II glucose meter has not been approved for testing on patients receiving intensive medical intervention or therapy and results from this point of care glucose test should not be used for patient management decisions in these cases. Inaccurate results may also occur from other interfering factors, such as N-acetylcysteine (blood concentrations of greater than 5mg/dL), galactose, extremes of hematocrit (<10 or >65), or high doses of ascorbic acid (vitamin C) greater than 3mg/dL. Consider alternate testing mechanisms (e.g. core lab, blood gas instrument) in the above situations. 08/05/2024 12:1 9 AM EDT Dylon Ochoa MD POC TESTING Final Result Performing Organization Address [facility] Co de Phone Number [facility] POINT OF [facility] [id number] [place] [address] * (ABNORMAL) GLUCOSE, BLOOD (POC) (08/04/2024 6:15 PM EDT) Glucose, Point of Care 148(A) 74 - 99 mg/dL [facility] Comment: Location:[facility], [address] [place] [address], [facility] The Accu-Chek Inform II glucose meter has not been approved for testing on patients receiving intensive medical intervention or therapy and results from this point of care glucose test should not be used for patient management decisions in these cases. Inaccurate results may also occur from other interfering factors, such as N-acetylcysteine (blood concentrations of greater than 5mg/dL), galactose, extremes of hematocrit (<10 or >65), or high doses of ascorbic acid (vitamin C) greater than 3mg/dL. Consider alternate testing mechanisms (e.g. core lab, blood gas instrument) in the above situations. 08/04/2024 6:15 PM EDT Dylon Ochoa MD POC TESTING Final Result Performing Organization Address [facility] Co de Phone Number [facility] OF CARE [facility] [id number] [place] [address] * MAGNESIUM (08/04/2024 5:40 PM EDT) Magnesium 2.0 1.7 - 2.3 mg/dL 08/04/2024 6:40 PM EDT [facility] Blood BLOOD SPECIMEN / Unknown Venipuncture / Unknown 08/04/2024 5:40 PM EDT 08/04/2024 6:14 PM EDT us Black Carter AUTO CLEANER.[facility] Final Result [facility] [address] [place] [address], * (ABNORMAL) RENAL FUNCTION PANEL (08/04/2024 5:40 PM EDT) Pathologist [facility] Albumin 3.4(L) 3.9 - 4.9 g/dL 08/04/2024 6:40 PM EDT [facility] Calcium, Total 8.4(L) 8.5 - 10.2 mg/dL 08/04/2024 6:40 PM EDT [facility] Phosphorus 2.5(L) 2.7 - 4.8 mg/dL 08/04/2024 6:40 PM EDT [facility] Glucose 123(H) 74 - 99 mg/dL 08/04/2024 6:40 PM EDT [facility] Comment: The [place] Diabetes [employer] (ADA) provides guidance for cutoff values for fasting glucose and random glucose. The ADA defines fasting as no caloric intake for at least 8 hours. Fasting plasma glucose results between 100 to 125 mg/dL indicate increased risk for diabetes (prediabetes). Fasting plasma glucose results greater than or equal to 126 mg/dL meet the criteria for diagnosis of diabetes. In the absence of unequivocal hyperglycemia, results should be confirmed by repeat testing. In a patient with classic symptoms of hyperglycemia or hyperglycemic crisis, random plasma glucose results greater than or equal to 200 mg/dL meet the criteria for diagnosis of diabetes. Reference: Standards of Medical Care in Diabetes 2016, [place] [employer]. Diabetes Care. 2016.39(Suppl 1). BUN 5(L) 9 - 24 mg/dL 08/04/2024 6:40 PM EDT [facility] Creatinine 0.47(L) 0.73 - 1.22 mg/dL 08/04/2024 6:40 PM EDT [facility] Sodium 132(L) 136 - 144 mmol/L 08/04/2024 6:40 PM EDT [facility] Potassium 3.8 3.7 - 5.1 mmol/L 08/04/2024 6:40 PM EDT [facility] Chloride 96(L) 98 - 107 mmol/L 08/04/2024 6:40 PM EDT [facility] CO2 23 22 - 30 mmol/L 08/04/2024 6:40 PM EDT [facility] Anion Gap 13 8 - 15 mmol/L 08/04/2024 6:40 PM EDT [facility] Estimated Glomerular Filtration Rate 117 >=60 mL/min/1. 73m 08/04/2024 6:40 PM EDT [facility] Comment:Estimated Glomerular Filtration Rate (eGFR) is calculated using the 2020 CKD-EPI creatinine equation. This equation utilizes serum creatinine, sex, and age as parameters. The creatinine assay has traceable calibration to isotope dilution- mass spectrometry. Refer to KDIGO guidelines for clinical interpretation. In patients with unstable renal function, e.g. those with acute kidney injury, the eGFR may not accurately reflect actual GFR. Blood BLOOD SPECIMEN / Unknown Venipuncture / Unknown 08/04/2024 5:40 PM EDT 08/04/2024 6:14 PM EDT us Black Carter AUTO CLEANER.[facility] [place] [address], * (ABNORMAL) GLUCOSE, BLOOD (POC) (08/04/2024 12:22 PM EDT) [facility] Glucose, Point of Care 135(A) 74 - 99 mg/dL [facility] Comment: Location:[facility], [address] [place] [address] The Accu-Chek Inform II glucose meter has not been approved for testing on patients receiving intensive medical intervention or therapy and results from this point of care glucose test should not be used for patient management decisions in these cases. Inaccurate results may also occur from other interfering factors, such as N-acetylcysteine (blood concentrations of greater than 5mg/dL), galactose, extremes of hematocrit (<10 or >65), or high doses of ascorbic acid (vitamin C) greater than 3mg/dL. Consider alternate testing mechanisms (e.g. core lab, blood gas instrument) in the above situations. 08/04/2024 12:2 2 PM EDT us Dylon Ochoa MD POC TESTING Final Result Performing Organization Address City/[facility] Co de Phone Number [facility] POINT OF CARE [facility] [address] [address] [place], [place] * ECG COMPLETE (08/04/2024 7:34 AM EDT) Ventricular Rate 96 BPM [facility] Atrial Rate 97 BPM [facility] P-R Interval 158 ms [facility] QRS Duration 92 ms [facility] QT Interval 430 ms [facility] QTC Calculation (Bazett) 544 ms [facility] Calculated P [place] 75 degrees [facility] Calculated R [place] -34 degrees [facility] Calculated T [place] 89 degrees [facility] 08/04/2024 7:34 AM EDT Impressions [facility] - 08/05/2024 2:52 PM EDT Sinus rhythm Left axis deviation Anteroseptal infarct, age indeterminate Prolonged QT interval Abnormal ECG Confirmed by JESIKA HUMMEL M.D. ([id number]) on 08/05/2024 2:52:28 PM Narrative [facility] - 08/05/2024 2:52 PM EDT NAME : SARAY CORBIN PID : [id number] : 1960 Gender : Male Race : ORD : [id number] Procedure Date : Aug 04 2024 07:34:30 Edit Date : Aug 05 2024 14:52:34 Diagnosis: Sinus rhythm Left axis deviation Anteroseptal infarct, age indeterminate Prolonged QT interval Abnormal ECG Confirmed by JESIKA HUMMEL M.D. ([id number]) on 08/05/2024 2:52:28 PM Test Reason : Check QT Location : 400 : F[facility] PKTB Overread By : JESIKA HUMMEL M.D. Edited By : JESIKA HUMMEL M.D. Referred By : MILLY GALVAN JR Acquired by : BEATA PORTER us Black Carter AUTO CLEANER.KENO WRITER EKG Final Result Performing Organization Address [facility] Co de Phone Number [facility] [address] [place] [address] * (ABNORMAL) GLUCOSE, BLOOD (POC) (08/04/2024 5:39 AM EDT) [facility] Glucose, Point of Care 120(A) 74 - 99 mg/dL [facility] Comment: Location:[facility], [address] [place], [place], [address] The Accu-Chek Inform II glucose meter has not been approved for testing on patients receiving intensive medical intervention or therapy and results from this point of care glucose test should not be used for patient management decisions in these cases. Inaccurate results may also occur from other interfering factors, such as N-acetylcysteine (blood concentrations of greater than 5mg/dL), galactose, extremes of hematocrit (<10 or >65), or high doses of ascorbic acid (vitamin C) greater than 3mg/dL. Consider alternate testing mechanisms (e.g. core lab, blood gas instrument) in the above situations. 08/04/2024 5:39 AM EDT us Dylon Ochoa MD POC TESTING Final Result Performing Organization Address [facility] de Phone Number [facility] POINT OF CARE [facility] [address] [place], [place] * PHOSPHORUS INORGANIC (08/04/2024 5:23 AM EDT) [facility] Phosphorus 2.9 2.7 - 4.8 mg/dL 08/04/2024 7:28 AM EDT [facility] Blood BLOOD SPECIMEN / Unknown Venipuncture / Unknown 08/04/2024 5:23 AM EDT 08/04/2024 6:54 AM EDT us Black Carter APRN[facility] Final Result Performing Organization Address [facility] Co de Phone Number [facility] [address] [place] [address], [place] * (ABNORMAL) BASIC METABOLIC PANEL (08/04/2024 5:23 AM EDT) [facility] Glucose 122(H) 74 - 99 mg/dL 08/04/2024 7:28 AM [facility] Comment: The [place] Diabetes [employer] (ADA) provides guidance for cutoff values for fasting glucose and random glucose. The ADA defines fasting as no caloric intake for at least 8 hours. Fasting plasma glucose results between 100 to 125 mg/dL indicate increased risk for diabetes (prediabetes). Fasting plasma glucose results greater than or equal to 126 mg/dL meet the criteria for diagnosis of diabetes. In the absence of unequivocal hyperglycemia, results should be confirmed by repeat testing. In a patient with classic symptoms of hyperglycemia or hyperglycemic crisis, random plasma glucose results greater than or equal to 200 mg/dL meet the criteria for diagnosis of diabetes. Reference: Standards of Medical Care in Diabetes 2016, [place] [employer]. Diabetes Care. 2016.39(Suppl 1). BUN 4(L) 9 - 24 mg/dL 08/04/2024 7:28 AM [facility] Creatinine 0.44(L) 0.73 - 1.22 mg/dL 08/04/2024 7:28 AM [facility] Sodium 133(L) 136 - 144 mmol/L 08/04/2024 7:28 AM [facility] Potassium 3.2(L) 3.7 - 5.1 mmol/L 08/04/2024 7:28 AM [facility] Chloride 96(L) 98 - 107 mmol/L 08/04/2024 7:28 AM [facility] CO2 24 22 - 30 mmol/L 08/04/2024 7:28 AM [facility] Anion Gap 13 8 - 15 mmol/L 08/04/2024 7:28 AM [facility] Calcium, Total 8.8 8.5 - 10.2 mg/dL 08/04/2024 7:28 AM [facility] Estimated Glomerular Filtration Rate 119 >=60 mL/min/1. 73m 08/04/2024 7:28 AM [facility] [facility] Comment:Estimated Glomerular Filtration Rate (eGFR) is calculated using the 2020 CKD-EPI creatinine equation. This equation utilizes serum creatinine, sex, and age as parameters. The creatinine assay has traceable calibration to isotope dilution- mass spectrometry. Refer to KDIGO guidelines for clinical interpretation. In patients with unstable renal function, e.g. those with acute kidney injury, the eGFR may not accurately reflect actual GFR. Blood BLOOD SPECIMEN / Unknown Venipuncture / Unknown 08/04/2024 5:23 AM EDT 08/04/2024 6:54 AM EDT us Dylon Ochoa MD LABORATORY Final Result [facility] [address] [place] [address], * (ABNORMAL) COMPLETE BLOOD COUNT (08/04/2024 5:23 AM EDT) WBC 9.17 3.70 - 11.00 k/uL 08/04/2024 6:54 AM EDT [facility] RBC 3.49(L) 4.20 - 6.00 m/uL 08/04/2024 6:54 AM EDT [facility] Hemoglobin 7.6(L) 13.0 - 17.0 g/dL 08/04/2024 6:54 AM EDT [facility] Hematocrit 25.4(L) 39.0 - 51.0 % 08/04/2024 6:54 AM EDT [facility] MCV 72.8(L) 80.0 - 100.0 fL 08/04/2024 6:54 AM EDT [facility] MCH 21.8(L) 26.0 - 34.0 pg 08/04/2024 6:54 AM EDT [facility] MCHC 29.9(L) 30.5 - 36.0 g/dL 08/04/2024 6:54 AM EDT [facility] RDW-CV 20.8(H) 11.5 - 15.0 % 08/04/2024 6:54 AM EDT [facility] Platelet Count 416(H) 150 - 400 k/uL 08/04/2024 6:54 AM EDT [facility] MPV 9.1 9.0 - 12.7 fL 08/04/2024 6:54 AM EDT [facility] Absolute nRBC <0.01 <0.01 k/uL 08/04/2024 6:54 AM EDT [facility] Blood BLOOD SPECIMEN / Unknown Venipuncture / Unknown 08/04/2024 5:23 AM EDT 08/04/2024 6:23 AM EDT us Dylon Ochoa MD LABORATORY Final Result Performing Organization Address [facility] [place] [address], [place] * (ABNORMAL) MAGNESIUM (08/04/2024 5:23 AM EDT) Magnesium 1.6(L) 1.7 - 2.3 mg/dL 08/04/2024 7:28 AM EDT [facility] Blood BLOOD SPECIMEN / Unknown Venipuncture / Unknown 08/04/2024 5:23 AM EDT 08/04/2024 6:54 AM EDT us Dylon Ochoa MD LABORATORY Final Result Performing Organization Address [facility] [place] [address], [place] * (ABNORMAL) GLUCOSE, BLOOD (POC) (08/03/2024 11:47 PM EDT) [facility] Glucose, Point of Care 108(A) 74 - 99 mg/dL [facility] Comment: Location:[facility], [address] [place] [address], [facility] The Accu-Chek Inform II glucose meter has not been approved for testing on patients receiving intensive medical intervention or therapy and results from this point of care glucose test should not be used for patient management decisions in these cases. Inaccurate results may also occur from other interfering factors, such as N-acetylcysteine (blood concentrations of greater than 5mg/dL), galactose, extremes of hematocrit (<10 or >65), or high doses of ascorbic acid (vitamin C) greater than 3mg/dL. Consider alternate testing mechanisms (e.g. core lab, blood gas instrument) in the above situations. 08/03/2024 11:4 7 PM EDT us Dylon Ochoa MD POC TESTING Final Result Performing Organization Address [facility] Co de Phone Number [facility] [address] [place], [place] * (ABNORMAL) GLUCOSE, BLOOD (POC) (08/03/2024 11:45 PM EDT) Pathologist [facility] Glucose, Point of Care 51(A) 74 - 99 mg/dL [facility] Comment: Location:[facility], [address] [place] [address], [facility] The Accu-Chek Inform II glucose meter has not been approved for testing on patients receiving intensive medical intervention or therapy and results from this point of care glucose test should not be used for patient management decisions in these cases. Inaccurate results may also occur from other interfering factors, such as N-acetylcysteine (blood concentrations of greater than 5mg/dL), galactose, extremes of hematocrit (<10 or >65), or high doses of ascorbic acid (vitamin C) greater than 3mg/dL. Consider alternate testing mechanisms (e.g. core lab, blood gas instrument) in the above situations. 08/03/2024 11:4 5 PM EDT us Dylon Ochoa MD POC TESTING Final Result [facility] [address] [place], [place] * (ABNORMAL) GLUCOSE, BLOOD (POC) (08/03/2024 5:53 PM EDT) [facility] Glucose, Point of Care 114(A) 74 - 99 mg/dL [facility] Comment: Location:[facility], [address] [place] [address], [address] The Accu-Chek Inform II glucose meter has not been approved for testing on patients receiving intensive medical intervention or therapy and results from this point of care glucose test should not be used for patient management decisions in these cases. Inaccurate results may also occur from other interfering factors, such as N-acetylcysteine (blood concentrations of greater than 5mg/dL), galactose, extremes of hematocrit (<10 or >65), or high doses of ascorbic acid (vitamin C) greater than 3mg/dL. Consider alternate testing mechanisms (e.g. core lab, blood gas instrument) in the above situations. 08/03/2024 5:53 PM EDT us Dylon Ochoa MD POC TESTING Final Result [facility] POINT OF CARE [facility] [address] [address] [place], [place] * XR CHEST 1V FRONTAL (08/03/2024 2:43 PM EDT) Anatomical Region Laterality Modality Chest Radiographic Adriana ging 08/03/2024 2:43 PM EDT Impressions 08/03/2024 4:28 PM EDT IMPRESSION: Overall stable exam with no definite acute radiographic abnormality. Front End Assistant: PSCB Transcribe Date/Time: Aug 03 2024 4:24P Dictated by : MYNOR REYNOLDS MD This examination was interpreted and the report reviewed and electronically signed by: MYNOR REYNOLDS MD on Aug 03 2024 4:26PM EST Narrative 08/03/2024 4:28 PM EDT * * *Final Report* * * DATE OF EXAM: Aug 03 2024 2:43PM [id number] 5290 - XR CHEST 1V FRONTAL / PROCEDURE REASON: Cough * * * * Physician Interpretation * * * * EXAMINATION: CHEST RADIOGRAPH (SINGLE VIEW AP OR PA) CLINICAL HISTORY: Cough MQ: XC1_5 Comparison: 07/31/2024. RESULT: Lines, tubes, and devices: The NG tube has been exchanged with a feeding tube seen extending into the gastric antrum. The patient has been extubated. Lungs and pleura: There is hypoinflation of the lungs with no definite infiltrate. No consolidation. No lung mass. No pleural effusion. Cardiomediastinal silhouette: Stable cardiomediastinal silhouette. Other: The patient is status post cervical spine surgery. Procedure Note Provider, [facility] [place] - 08/03/2024 * * *Final Report* * * DATE OF EXAM: Aug 03 2024 2:43PM FVX 5290 - XR CHEST 1V FRONTAL / PROCEDURE REASON: Cough * * * * Physician Interpretation * * * * EXAMINATION: CHEST RADIOGRAPH (SINGLE VIEW AP OR PA) CLINICAL HISTORY: Cough MQ: XC1_5 Comparison: 07/31/2024. RESULT: Lines, tubes, and devices: The NG tube has been exchanged with a feeding tube seen extending into the gastric antrum. The patient has been extubated. Lungs and pleura: There is hypoinflation of the lungs with no definite infiltrate. No consolidation. No lung mass. No pleural effusion. Cardiomediastinal silhouette: Stable cardiomediastinal silhouette. Other: The patient is status post cervical spine surgery. IMPRESSION IMPRESSION: Overall stable exam with no definite acute radiographic abnormality. Front End Assistant: [facility] Transcribe Date/Time: Aug 03 2024 4:24P Dictated by : MYNOR REYNOLDS MD This examination was interpreted and the report reviewed and electronically signed by: MYNOR REYNOLDS MD on Aug 03 2024 4:26PM EST us Black Fidel AUTO CLEANER.KENO WRITER RAD-PAMA Final Result * XR ABDOMEN 1V SUPINE (08/03/2024 2:43 PM EDT) Anatomical Region Laterality Modality Abdomen Radiographic Adriana ging 08/03/2024 2:43 PM EDT Impressions 08/03/2024 5:11 PM EDT IMPRESSION: Enteric feeding tube tip projects near the pylorus. Front End Assistant: [facility] Transcribe Date/Time: Aug 03 2024 5:08P Dictated by : SHELBY CREWS MD This examination was interpreted and the report reviewed and electronically signed by: SHELBY CREWS MD on Aug 03 2024 5:08PM EST Narrative 08/03/2024 5:11 PM EDT * * *Final Report* * * DATE OF EXAM: Aug 03 2024 2:43PM FVX 5289 - XR ABDOMEN 1V SUPINE / PROCEDURE REASON: Evaluate tube, line or lead position * * * * Physician Interpretation * * * * EXAMINATION: XR ABDOMEN 1V SUPINE CLINICAL HISTORY: Evaluate tube, line or lead position Technique: XR ABDOMEN 1V SUPINE -- NOT APPLICABLE with 1 views on 1 images Comparison: Abdomen x-rays dated 05/16/2022 RESULT: An enteric feeding tube is in place, its tip projects near the pylorus. Cholecystectomy clips are noted. No abnormally gas-distended loops of bowel are seen in the imaged portion of the upper abdomen. Procedure Note Provider, [facility] [place] - 08/03/2024 * * *Final Report* * * DATE OF EXAM: Aug 03 2024 2:43PM FVX 5289 - XR ABDOMEN 1V SUPINE / PROCEDURE REASON: Evaluate tube, line or lead position * * * * Physician Interpretation * * * * EXAMINATION: XR ABDOMEN 1V SUPINE CLINICAL HISTORY: Evaluate tube, line or lead position Technique: XR ABDOMEN 1V SUPINE -- NOT APPLICABLE with 1 views on 1 images Comparison: Abdomen x-rays dated 05/16/2022 RESULT: An enteric feeding tube is in place, its tip projects near the pylorus. Cholecystectomy clips are noted. No abnormally gas-distended loops of bowel are seen in the imaged portion of the upper abdomen. IMPRESSION IMPRESSION: Enteric feeding tube tip projects near the pylorus. Front End Assistant: [facility] Transcribe Date/Time: Aug 03 2024 5:08P Dictated by : SHELBY CREWS MD This examination was interpreted and the report reviewed and electronically signed by: SHELBY CREWS MD on Aug 03 2024 5:08PM EST us Black Carter APRN.CNP RAD-PAMA Final Result * FEEDING TUBE (08/03/2024 1:54 PM EDT) Narrative Black Carter APRN.CNP - 08/03/2024 1:54 PM EDT Black Carter APRN.CNP 08/03/2024 1:55 PM FEEDING TUBE Performed by: Black Carter APRN.CNP Authorized by: Black Carter APRN.CNP Where was Patient When this Procedure was Performed: Bedside/Unscheduled Procedure Room Informed Consent Consent Obtained: Verbal [place] Protocol A moment to CARE was completed. SIGN IN Personnel directly involved with the procedure wore the appropriate PPE. Patient/Surrogate Stated/Verified: Patient name, Date of , Relevant allergies and Intended procedure TIME OUT Relevant labs, photos, and/or imaging studies have been reviewed. Pre-Procedure Details: Medications: Local analgesia: lido gel. Procedure Details: Type: Gastric Location: Right Insertion Site: naris A 12 Fr, cm feeding tube was lubricated with a water-soluble lubricant and advanced into the pharynx. Duodenal feeding tube distance advanced: 70. Auscultation suggested the feeding tube reached the stomach. Final Position: Stomach Placement Confirmation: ELLEN TERESA ordered and auscultation Successful Placement: yes Post-Procedure Details: Patient Tolerance: Patient tolerated the procedure well with no immediate complications Estimated Blood Loss: none Specimens Sent: none SIGN OUT No specimen collected. us Black Carter APRN.KENO WRITER PROCEDURE Final Result * GLUCOSE, BLOOD (POC) (08/03/2024 12:05 PM EDT) Glucose, Point of Care 96 74 - 99 mg/dL [facility] Comment: Location:[facility], [address] [place] [address], [facility] The Accu-Chek Inform II glucose meter has not been approved for testing on patients receiving intensive medical intervention or therapy and results from this point of care glucose test should not be used for patient management decisions in these cases. Inaccurate results may also occur from other interfering factors, such as N-acetylcysteine (blood concentrations of greater than 5mg/dL), galactose, extremes of hematocrit (<10 or >65), or high doses of ascorbic acid (vitamin C) greater than 3mg/dL. Consider alternate testing mechanisms (e.g. core lab, blood gas instrument) in the above situations. 08/03/2024 12:0 5 PM EDT us Dylon Ochoa MD POC TESTING Final Result [facility] POINT OF CARE [facility] [id number] [place] [address] * (ABNORMAL) GLUCOSE, BLOOD (POC) (08/03/2024 7:33 AM EDT) Glucose, Point of Care 122(A) 74 - 99 mg/dL [facility] Comment: Location:[facility], [address] [place] [address], [facility] The Accu-Chek Inform II glucose meter has not been approved for testing on patients receiving intensive medical intervention or therapy and results from this point of care glucose test should not be used for patient management decisions in these cases. Inaccurate results may also occur from other interfering factors, such as N-acetylcysteine (blood concentrations of greater than 5mg/dL), galactose, extremes of hematocrit (<10 or >65), or high doses of ascorbic acid (vitamin C) greater than 3mg/dL. Consider alternate testing mechanisms (e.g. core lab, blood gas instrument) in the above situations. 08/03/2024 7:33 AM EDT Dylon Ochoa MD POC TESTING Final Result Performing Organization Address [facility] Co de Phone Number [facility] [id number] [place] [address] * GLUCOSE, BLOOD (POC) (08/03/2024 6:38 AM EDT) Glucose, Point of Care 83 74 - 99 mg/dL [facility] Comment: Location:[facility], [address] [place] [address], [address] The Accu-Chek Inform II glucose meter has not been approved for testing on patients receiving intensive medical intervention or therapy and results from this point of care glucose test should not be used for patient management decisions in these cases. Inaccurate results may also occur from other interfering factors, such as N-acetylcysteine (blood concentrations of greater than 5mg/dL), galactose, extremes of hematocrit (<10 or >65), or high doses of ascorbic acid (vitamin C) greater than 3mg/dL. Consider alternate testing mechanisms (e.g. core lab, blood gas instrument) in the above situations. 08/03/2024 6:38 AM EDT Dylon Ochoa MD POC TESTING Final Result Performing Organization Address [facility] de Phone Number [facility] [id number] [place] [address] * GLUCOSE, BLOOD (POC) (08/03/2024 6:11 AM EDT) Glucose, Point of Care 95 74 - 99 mg/dL [facility] Comment: Location:[address] [place], [place], [address] The Accu-Chek Inform II glucose meter has not been approved for testing on patients receiving intensive medical intervention or therapy and results from this point of care glucose test should not be used for patient management decisions in these cases. Inaccurate results may also occur from other interfering factors, such as N-acetylcysteine (blood concentrations of greater than 5mg/dL), galactose, extremes of hematocrit (<10 or >65), or high doses of ascorbic acid (vitamin C) greater than 3mg/dL. Consider alternate testing mechanisms (e.g. core lab, blood gas instrument) in the above situations. 08/03/2024 6:11 AM EDT Dylon Ochoa MD POC TESTING Final Result Performing Organization Address [facility] Co de Phone Number [address] * (ABNORMAL) GLUCOSE, BLOOD (POC) (08/03/2024 6:08 AM EDT) [facility], Point of Care 109(A) 74 - 99 mg/dL [facility] Comment: Location:[facility], [address] [place] [address], [facility] The Accu-Chek Inform II glucose meter has not been approved for testing on patients receiving intensive medical intervention or therapy and results from this point of care glucose test should not be used for patient management decisions in these cases. Inaccurate results may also occur from other interfering factors, such as N-acetylcysteine (blood concentrations of greater than 5mg/dL), galactose, extremes of hematocrit (<10 or >65), or high doses of ascorbic acid (vitamin C) greater than 3mg/dL. Consider alternate testing mechanisms (e.g. core lab, blood gas instrument) in the above situations. 08/03/2024 6:08 AM EDT Dylon Ochoa MD POC TESTING Final Result Performing Organization Address [facility] Co de Phone Number [facility] [address] * (ABNORMAL) GLUCOSE, BLOOD (POC) (08/03/2024 6:04 AM EDT) Pathologist [facility] Glucose, Point of Care 26(AA) 74 - 99 mg/dL [facility] POINT OF CARE Comment: Glu2: Critical Notified Repeat Immediately Location:[facility], [address] [place] [address], [facility] The Accu-Chek Inform II glucose meter has not been approved for testing on patients receiving intensive medical intervention or therapy and results from this point of care glucose test should not be used for patient management decisions in these cases. Inaccurate results may also occur from other interfering factors, such as N-acetylcysteine (blood concentrations of greater than 5mg/dL), galactose, extremes of hematocrit (<10 or >65), or high doses of ascorbic acid (vitamin C) greater than 3mg/dL. Consider alternate testing mechanisms (e.g. core lab, blood gas instrument) in the above situations. 08/03/2024 6:04 AM EDT Dylon Ochoa MD POC TESTING Final Result [facility] POINT OF CARE * (ABNORMAL) PHOSPHORUS INORGANIC (08/03/2024 4:20 AM EDT) [facility] Phosphorus 2.5(L) 2.7 - 4.8 mg/dL 08/03/2024 12:00 PM EDT [facility] Blood BLOOD SPECIMEN / Unknown Venipuncture / Unknown 08/03/2024 4:20 AM EDT 08/03/2024 5:23 AM EDT Black Caretr APRN.KENO WRITER LABORATORY Final Result [facility] [address] [place] [address] * (ABNORMAL) BASIC METABOLIC PANEL (08/03/2024 4:20 AM EDT) [facility] Glucose 113(H) 74 - 99 mg/dL 08/03/2024 5:49 AM EDT [facility] Comment: The [place] [employer] (ADA) provides guidance for cutoff values for fasting glucose and random glucose. The ADA defines fasting as no caloric intake for at least 8 hours. Fasting plasma glucose results between 100 to 125 mg/dL indicate increased risk for diabetes (prediabetes). Fasting plasma glucose results greater than or equal to 126 mg/dL meet the criteria for diagnosis of diabetes. In the absence of unequivocal hyperglycemia, results should be confirmed by repeat testing. In a patient with classic symptoms of hyperglycemia or hyperglycemic crisis, random plasma glucose results greater than or equal to 200 mg/dL meet the criteria for diagnosis of diabetes. Reference: Standards of Medical Care in Diabetes 2016, [place] [employer]. Diabetes Care. 2016.39(Suppl 1). BUN 5(L) 9 - 24 mg/dL 08/03/2024 5:49 AM [facility] Creatinine 0.50(L) 0.73 - 1.22 mg/dL 08/03/2024 5:49 AM [facility] Sodium 134(L) 136 - 144 mmol/L 08/03/2024 5:49 AM [facility] Potassium 3.7 3.7 - 5.1 mmol/L 08/03/2024 5:49 AM [facility] Chloride 100 98 - 107 mmol/L 08/03/2024 5:49 AM [facility] CO2 22 22 - 30 mmol/L 08/03/2024 5:49 AM [facility] Anion Gap 12 8 - 15 mmol/L 08/03/2024 5:49 AM [facility] Calcium, Total 8.3(L) 8.5 - 10.2 mg/dL 08/03/2024 5:49 AM [facility] Estimated Glomerular Filtration Rate 115 >=60 mL/min/1. 73m 08/03/2024 5:49 AM [facility] Comment:Estimated Glomerular Filtration Rate (eGFR) is calculated using the 2020 CKD-EPI creatinine equation. This equation utilizes serum creatinine, sex, and age as parameters. The creatinine assay has traceable calibration to isotope dilution- mass spectrometry. Refer to KDIGO guidelines for clinical interpretation. In patients with unstable renal function, e.g. those with acute kidney injury, the eGFR may not accurately reflect actual GFR. Blood BLOOD SPECIMEN / Unknown Venipuncture / Unknown 08/03/2024 4:20 AM EDT 08/03/2024 5:23 AM EDT Dylon Ochoa MD LABORATORY Final Result [facility] [address] [place] [address], * (ABNORMAL) COMPLETE BLOOD COUNT (08/03/2024 4:20 AM EDT) WBC 9.22 3.70 - 11.00 k/uL 08/03/2024 5:19 AM EDT [facility] RBC 3.38(L) 4.20 - 6.00 m/uL 08/03/2024 5:19 AM EDT [facility] Hemoglobin 7.4(L) 13.0 - 17.0 g/dL 08/03/2024 5:19 AM EDT [facility] Hematocrit 24.8(L) 39.0 - 51.0 % 08/03/2024 5:19 AM EDT [facility] MCV 73.4(L) 80.0 - 100.0 fL 08/03/2024 5:19 AM EDT [facility] MCH 21.9(L) 26.0 - 34.0 pg 08/03/2024 5:19 AM EDT [facility] MCHC 29.8(L) 30.5 - 36.0 g/dL 08/03/2024 5:19 AM EDT [facility] RDW-CV 21.1(H) 11.5 - 15.0 % 08/03/2024 5:19 AM EDT [facility] Platelet Count 384 150 - 400 k/uL 08/03/2024 5:19 AM EDT [facility] MPV 8.7(L) 9.0 - 12.7 fL 08/03/2024 5:19 AM EDT [facility] Absolute nRBC <0.01 <0.01 k/uL 08/03/2024 5:[facility] Blood BLOOD SPECIMEN / Unknown Venipuncture / Unknown 08/03/2024 4:20 AM EDT 08/03/2024 5:13 AM EDT us Dylon Ochoa MD LABORATORY Final Result Performing Organization Address [facility] Co de Phone Number [facility] [id number] [place], [place] [id number], * MAGNESIUM (08/03/2024 4:20 AM EDT) [facility] Magnesium 1.7 1.7 - 2.3 mg/dL 08/03/2024 5:49 AM EDT [facility] Blood BLOOD SPECIMEN / Unknown Venipuncture / Unknown 08/03/2024 4:20 AM EDT 08/03/2024 5:23 AM EDT Dylon Ochoa MD LABORATORY Final Result Performing Organization Address [facility] Co de Phone Number [facility] [phone] [place] [address], [place] * (ABNORMAL) GLUCOSE, BLOOD (POC) (08/02/2024 11:46 PM EDT) [facility] Glucose, Point of Care 153(A) 74 - 99 mg/dL [facility] Comment: Location:[facility], [address] [place] [address], [facility] The Accu-Chek Inform II glucose meter has not been approved for testing on patients receiving intensive medical intervention or therapy and results from this point of care glucose test should not be used for patient management decisions in these cases. Inaccurate results may also occur from other interfering factors, such as N-acetylcysteine (blood concentrations of greater than 5mg/dL), galactose, extremes of hematocrit (<10 or >65), or high doses of ascorbic acid (vitamin C) greater than 3mg/dL. Consider alternate testing mechanisms (e.g. core lab, blood gas instrument) in the above situations. 08/02/2024 11:4 6 PM EDT us Dylon Ochoa MD POC TESTING Final Result Performing Organization Address [facility] Co de Phone Number [facility] POINT OF CARE [address] * (ABNORMAL) GLUCOSE, BLOOD (POC) (08/02/2024 7:01 PM EDT) Glucose, Point of Care 141(A) 74 - 99 mg/dL [facility] Comment: Location:[facility], [address] [place] [address], [facility] The Accu-Chek Inform II glucose meter has not been approved for testing on patients receiving intensive medical intervention or therapy and results from this point of care glucose test should not be used for patient management decisions in these cases. Inaccurate results may also occur from other interfering factors, such as N-acetylcysteine (blood concentrations of greater than 5mg/dL), galactose, extremes of hematocrit (<10 or >65), or high doses of ascorbic acid (vitamin C) greater than 3mg/dL. Consider alternate testing mechanisms (e.g. core lab, blood gas instrument) in the above situations. 08/02/2024 7:01 PM EDT Dylon Ochoa MD POC TESTING Final Result [facility] POINT OF CARE [address] * (ABNORMAL) GLUCOSE, BLOOD (POC) (08/02/2024 12:05 PM EDT) [facility] Glucose, Point of Care 137(A) 74 - 99 mg/dL [facility] Comment: Location:[facility], [address] [place] [address], [facility] The Accu-Chek Inform II glucose meter has not been approved for testing on patients receiving intensive medical intervention or therapy and results from this point of care glucose test should not be used for patient management decisions in these cases. Inaccurate results may also occur from other interfering factors, such as N-acetylcysteine (blood concentrations of greater than 5mg/dL), galactose, extremes of hematocrit (<10 or >65), or high doses of ascorbic acid (vitamin C) greater than 3mg/dL. Consider alternate testing mechanisms (e.g. core lab, blood gas instrument) in the above situations. 08/02/2024 12:0 5 PM EDT us Dylon Ochoa MD POC TESTING Final Result Performing Organization Address [facility] Co de Phone Number [facility] POINT OF CARE [facility] [address] [place], [place] * (ABNORMAL) GLUCOSE, BLOOD (POC) (08/02/2024 5:32 AM EDT) Glucose, Point of Care 102(A) 74 - 99 mg/dL [facility] Comment: Location:[facility], [id number] [place] [address], [facility] The Accu-Chek Inform II glucose meter has not been approved for testing on patients receiving intensive medical intervention or therapy and results from this point of care glucose test should not be used for patient management decisions in these cases. Inaccurate results may also occur from other interfering factors, such as N-acetylcysteine (blood concentrations of greater than 5mg/dL), galactose, extremes of hematocrit (<10 or >65), or high doses of ascorbic acid (vitamin C) greater than 3mg/dL. Consider alternate testing mechanisms (e.g. core lab, blood gas instrument) in the above situations. 08/02/2024 5:32 AM EDT us Dylon Ochoa MD POC TESTING Final Result Performing Organization Address [facility] de Phone Number [facility] OF CARE [facility] [address] [place], [place] * (ABNORMAL) BASIC METABOLIC PANEL (08/02/2024 5:00 AM EDT) Glucose 102(H) 74 - 99 mg/dL 08/02/2024 6:17 AM EDT [facility] Comment: The [place] [employer] (ADA) provides guidance for cutoff values for fasting glucose and random glucose. The ADA defines fasting as no caloric intake for at least 8 hours. Fasting plasma glucose results between 100 to 125 mg/dL indicate increased risk for diabetes (prediabetes). Fasting plasma glucose results greater than or equal to 126 mg/dL meet the criteria for diagnosis of diabetes. In the absence of unequivocal hyperglycemia, results should be confirmed by repeat testing. In a patient with classic symptoms of hyperglycemia or hyperglycemic crisis, random plasma glucose results greater than or equal to 200 mg/dL meet the criteria for diagnosis of diabetes. Reference: Standards of Medical Care in Diabetes 2016, [place] [employer]. Diabetes Care. 2016.39(Suppl 1). BUN 3(L) 9 - 24 mg/dL 08/02/2024 6:17 AM EDT [facility] Creatinine 0.49(L) 0.73 - 1.22 mg/dL 08/02/2024 6:[facility] Sodium 133(L) 136 - 144 mmol/L 08/02/2024 6:17 AM EDT [facility] Potassium 4.3 3.7 - 5.1 mmol/L 08/02/2024 6:17 AM EDT [facility] Chloride 97(L) 98 - 107 mmol/L 08/02/2024 6:17 [facility] CO2 17(L) 22 - 30 mmol/L 08/02/2024 6:17 [facility] Anion Gap 19(H) 8 - 15 mmol/L 08/02/2024 6:17 AM [facility] Calcium, Total 8.0(L) 8.5 - 10.2 mg/dL 08/02/2024 6:17 AM [facility] Estimated Glomerular Filtration Rate 115 >=60 mL/min/1. 73m 08/02/2024 6:17 AM [facility] Comment:Estimated Glomerular Filtration Rate (eGFR) is calculated using the 2020 CKD-EPI creatinine equation. This equation utilizes serum creatinine, sex, and age as parameters. The creatinine assay has traceable calibration to isotope dilution- mass spectrometry. Refer to KDIGO guidelines for clinical interpretation. In patients with unstable renal function, e.g. those with acute kidney injury, the eGFR may not accurately reflect actual GFR. Blood BLOOD SPECIMEN / Unknown Venipuncture / Unknown 08/02/2024 5:00 AM EDT 08/02/2024 5:23 AM EDT us Dylon Ochoa MD LABORATORY Final Result [facility] [address] [place] [address], * (ABNORMAL) COMPLETE BLOOD COUNT (08/02/2024 5:00 AM EDT) WBC 10.49 3.70 - 11.00 k/uL 08/02/2024 5:37 AM EDT [facility] RBC 3.87(L) 4.20 - 6.00 m/uL 08/02/2024 5:37 AM EDT [facility] Hemoglobin 8.5(L) 13.0 - 17.0 g/dL 08/02/2024 5:37 AM EDT [facility] Hematocrit 28.7(L) 39.0 - 51.0 % 08/02/2024 5:37 AM EDT [facility] MCV 74.2(L) 80.0 - 100.0 fL 08/02/2024 5:37 AM EDT [facility] MCH 22.0(L) 26.0 - 34.0 pg 08/02/2024 5:37 AM EDT [facility] MCHC 29.6(L) 30.5 - 36.0 g/dL 08/02/2024 5:37 AM EDT [facility] RDW-CV 21.1(H) 11.5 - 15.0 % 08/02/2024 5:37 AM EDT [facility] Platelet Count 374 150 - 400 k/uL 08/02/2024 5:37 AM EDT [facility] MPV 8.7(L) 9.0 - 12.7 fL 08/02/2024 5:37 AM EDT [facility] Absolute nRBC <0.01 <0.01 k/uL 08/02/2024 5:37 AM EDT [facility] Blood BLOOD SPECIMEN / Unknown Venipuncture / Unknown 08/02/2024 5:00 AM EDT 08/02/2024 5:23 AM EDT us Dylon Ochoa MD LABORATORY Final Result [facility] [address] [place] [address], * MAGNESIUM (08/02/2024 5:00 AM EDT) Magnesium 1.9 1.7 - 2.3 mg/dL 08/02/2024 6:17 AM EDT [facility] Blood BLOOD SPECIMEN / Unknown Venipuncture / Unknown 08/02/2024 5:00 AM EDT 08/02/2024 5:23 AM EDT us Dylon Ochoa MD LABORATORY Final Result [facility] [address] [place] [address], * EPIL EEG BEM - CONTINUOUS BEDSIDE W/VIDEO INCLUDES PORTABLE EEG READ (08/02/2024 12:00 AM EDT) 08/02/2024 Narrative NEUROLOGY - 08/02/2024 3:02 PM EDT [facility] EPIL EEG BEM - Continuous bedside w/video includes portable EEG read [[id number]] Patient name: SARAY CORBIN Date of test: 08/02/2024 Requested By: AMADEO ANAYA Staff Physician: Anirudh Castellanos M.D. EEG Fellow or Sobieski: Antonio Garza History: 63 year old male with a medical history significant for seizures, CVA on plavix, anxiety/depression, COPD, LUZ, HTN, CHF, CAD, HLD, and chronic anemia who presents for mechanical fall with head wound. Patient tripped and fell into marble countertop, lost consciousness and was witnessed having what appeared to be seizure activity. CT Brain - Hemorrhage seen in the left lateral ventricle. Trace layering hemorrhagic in the occipital horns bilaterally. Small amount of hemorrhage in the fourth ventricle. Trace subarachnoid hemorrhage overlying the right temporal lobe (image 20, 2). Small amount of subarachnoid hemorrhage overlying the tentorium on the left. EEG was ordered for: Unspecified convulsions Etiology: Epilepsy NOS Conditions: Lethargy Awake Diagnosis: Primary: R56.9 Unspecified convulsions BEM Read Period: 08/02/2024 09:00:00 AM - 08/02/2024 01:40:00 PM Read duration: 280 minutes Classifications: Abnormal II (10-20 Scalp Electrodes, CT-Compatible Electrodes, Anterior Temporal Electrodes, Lethargy, Awake) Interictal: Continuous Slow, Generalized, Maximum, Left Fronto-temporal Impression: Continuous Video-EEG was reviewed from [id number] on 08/02/2024 and is suggestive of a cortical dysfunction in the left fronto-temporal region. There is also evidence of a moderate diffuse encephalopathy. No epileptiform discharges or EEG seizures were recorded. Interpreted and electronically signed by Anirudh Castellanos M.D. Date of signin08/02/2024 15:02 Amadeo Anaya APRN.CNP NEUROLOGY Final Result Performing Organization Address [facility] Co de Phone Number NEUROLOGY [address] [place] [address], * GLUCOSE, BLOOD (POC) (08/01/2024 11:22 PM EDT) [facility] Glucose, Point of Care 90 74 - 99 mg/dL [facility] Comment: Location:[facility], [address] [place], [place], [facility] The Accu-Chek Inform II glucose meter has not been approved for testing on patients receiving intensive medical intervention or therapy and results from this point of care glucose test should not be used for patient management decisions in these cases. Inaccurate results may also occur from other interfering factors, such as N-acetylcysteine (blood concentrations of greater than 5mg/dL), galactose, extremes of hematocrit (<10 or >65), or high doses of ascorbic acid (vitamin C) greater than 3mg/dL. Consider alternate testing mechanisms (e.g. core lab, blood gas instrument) in the above situations. 08/01/2024 11:2 2 PM EDT Dylon Ochoa MD POC TESTING Final Result Performing Organization Address [facility] Co de Phone Number [facility] POINT OF [facility] [address] [place], [place] * MRI BRAIN WO/W IVCON (08/01/2024 9:06 PM EDT) Anatomical Region Laterality Modality Head Magnetic Resonan ce 08/01/2024 9:06 PM EDT Impressions 08/01/2024 9:32 PM EDT IMPRESSION: Small focus of diffusion restriction posterior LEFT aspect of the patsy as above. Stable intraventricular blood products. Front End Assistant: PSCB Transcribe Date/Time: Aug 01 2024 9:23P Dictated by : SEVEN HUMPHREY MD This examination was interpreted and the report reviewed and electronically signed by: SEVEN HUMPHREY MD on Aug 01 2024 9:30PM EST Narrative 08/01/2024 9:32 PM EDT * * *Final Report* * * DATE OF EXAM: Aug 01 2024 9:06PM [facility] 0295 - MRI BRAIN WO/W IVCON / PROCEDURE REASON: Syncope, recurrent * * * * Physician Interpretation * * * * EXAMINATION: MRI BRAIN WO/W IVCON CLINICAL HISTORY: Syncope. TECHNIQUE: Routine brain MRI protocol without and with contrast including diffusion images. MQ: MRBWOW_2 Contrast: 6ml mL Elucirem IV COMPARISON: CT brain performed 08/01/2024. RESULT: Acute Change: Focus of diffusion restriction involving the posterior LEFT aspect of the patsy representing a small acute infarct. Hemorrhage: Intraventricular hemorrhage probably within the LEFT lateral ventricle with layering blood products within the occipital horns bilaterally. Mass Lesion/ Mass Effect: No evidence of an intracranial mass or extra-axial fluid collection. No abnormal parenchymal or leptomeningeal enhancement is noted following contrast administration. No significant mass effect. Chronic Change: Scattered patchy and confluent areas of increased T2 and FLAIR signal are present in the supratentorial white matter which is nonspecific but likely represents chronic microvascular ischemia. Parenchyma: There is mild generalized parenchymal volume loss. The brain parenchyma is otherwise within normal limits of signal intensity and morphology. Ventricles: Ventriculomegaly corresponds to the degree of parenchymal volume loss. Skull Base: Hypothalamic and pituitary region are grossly normal. Craniocervical junction is normal. No significant marrow replacement process. Vasculature: Major intracranial arterial structures, and dural venous sinuses show typical flow void, suggesting patency by spin echo criteria. Other: Moderate paranasal sinus inflammatory disease. Procedure Note Provider, [facility] - 08/01/2024 * * *Final Report* * * DATE OF EXAM: Aug 01 2024 9:06PM MCKENZIE Echols5 - MRI BRAIN WO/W IVCON / PROCEDURE REASON: Syncope, recurrent * * * * Physician Interpretation * * * * EXAMINATION: MRI BRAIN WO/W IVCON CLINICAL HISTORY: Syncope. TECHNIQUE: Routine brain MRI protocol without and with contrast including diffusion images. MQ: MRBWOW_2 Contrast: 6ml mL Elucirem IV COMPARISON: CT brain performed 08/01/2024. RESULT: Acute Change: Focus of diffusion restriction involving the posterior LEFT aspect of the patsy representing a small acute infarct. Hemorrhage: Intraventricular hemorrhage probably within the LEFT lateral ventricle with layering blood products within the occipital horns bilaterally. Mass Lesion/ Mass Effect: No evidence of an intracranial mass or extra-axial fluid collection. No abnormal parenchymal or leptomeningeal enhancement is noted following contrast administration. No significant mass effect. Chronic Change: Scattered patchy and confluent areas of increased T2 and FLAIR signal are present in the supratentorial white matter which is nonspecific but likely represents chronic microvascular ischemia. Parenchyma: There is mild generalized parenchymal volume loss. The brain parenchyma is otherwise within normal limits of signal intensity and morphology. Ventricles: Ventriculomegaly corresponds to the degree of parenchymal volume loss. Skull Base: Hypothalamic and pituitary region are grossly normal. Craniocervical junction is normal. No significant marrow replacement process. Vasculature: Major intracranial arterial structures, and dural venous sinuses show typical flow void, suggesting patency by spin echocriteria. Other: Moderate paranasal sinus inflammatory disease. IMPRESSION IMPRESSION: Small focus of diffusion restriction posterior LEFT aspect of the patsy as above. Stable intraventricular blood products. Front End Assistant: PSCB Transcribe Date/Time: Aug 01 2024 9:23P Dictated by : SEVEN HUMPHREY MD This examination was interpreted and the report reviewed and electronically signed by: SEVEN HUMPHREY MD on Aug 01 2024 9:30PM EST [facility] Meet DAVIS MRI-PAMA Final Result * GLUCOSE, BLOOD (POC) (08/01/2024 5:11 PM EDT) Glucose, Point of Care 77 74 - 99 mg/dL [facility] Comment: Location:[facility], [address] [place] [address], [facility] The Accu-Chek Inform II glucose meter has not been approved for testing on patients receiving intensive medical intervention or therapy and results from this point of care glucose test should not be used for patient management decisions in these cases. Inaccurate results may also occur from other interfering factors, such as N-acetylcysteine (blood concentrations of greater than 5mg/dL), galactose, extremes of hematocrit (<10 or >65), or high doses of ascorbic acid (vitamin C) greater than 3mg/dL. Consider alternate testing mechanisms (e.g. core lab, blood gas instrument) in the above situations. 08/01/2024 5:11 PM EDT us Dylon Ochoa MD POC TESTING Final Result Performing Organization Address [facility] Co de Phone Number [facility] [id number] [place] [address] * GLUCOSE, BLOOD (POC) (08/01/2024 11:37 AM EDT) [facility], Point of Care 90 74 - 99 mg/dL [facility] Comment: Location:[facility], [address] [place] [address], [facility] The Accu-Chek Inform II glucose meter has not been approved for testing on patients receiving intensive medical intervention or therapy and results from this point of care glucose test should not be used for patient management decisions in these cases. Inaccurate results may also occur from other interfering factors, such as N-acetylcysteine (blood concentrations of greater than 5mg/dL), galactose, extremes of hematocrit (<10 or >65), or high doses of ascorbic acid (vitamin C) greater than 3mg/dL. Consider alternate testing mechanisms (e.g. core lab, blood gas instrument) in the above situations. 08/01/2024 11:3 7 AM EDT us Dylon Ochoa MD POC TESTING Final Result Performing Organization Address [facility] Co de Phone Number [facility] [id number] [place] [address] * LVEF ECHO (08/01/2024 7:25 AM EDT) LV Ejection Fraction 56 % [facility] Comment: (2D biplane) EF > 52 An LV Ejection Fraction of > 50% is normal 08/01/2024 7:25 AM EDT us Amadeo Anaya AUTO CLEANER.KENO WRITER LVEF RESULTS Final Result [facility] [address] [place] [address] * ECHO (08/01/2024 7:25 AM EDT) 08/01/2024 7:25 AM EDT Impressions [facility] - 08/01/2024 2:50 PM EDT CONCLUSIONS: - Exam indication: Syncope - The left ventricle is moderately dilated. Left ventricular systolic function is normal. EF = 56 5% (2D biplane) The apical septal segment, apical inferior segment, and apex are akinetic. The apical lateral segment is mildly hypokinetic. - The right ventricle is normal in size. Right ventricular systolic function is normal. - The left atrial cavity is severely dilated. - Redundant and thickened mitral valve causing mild (1+-2+) mitral valve regurgitation. - Estimated right ventricular systolic pressure is 37 mmHg consistent with mild pulmonary hypertension. Estimated right atrial pressure is 3 mmHg based on IVC assessment. - Exam was compared with the prior echocardiographic exam performed on 05/06/2022. LV function has improved. * * * Final * * * Narrative [facility] - 08/01/2024 2:50 PM EDT Echocardiography Report: Transthoracic Echo [facility] Date of service: 08/01/2024 7:25:25 AM Ordering physician: AMADEO ANAYA Indication: Syncope Technologist: Bharat Lee [facility] Interpreting physician: Negrita Saleh MD PATIENT: Name: SARAY CORBIN : 1960 Age: 63 years Gender: M History of diabetes mellitus, hypertension, coronary artery disease, dyslipidemia, heart failure with hospitalization and COPD. Primary rhythm: sinus. Height: 175.00 cm BSA: 1.74 m Weight: 62.30 kg BMI: 20.3 kg/m Heart rate 91 bpm Blood pressure 128/67 mmHg Color Doppler was utilized to interrogate the cardiac valves assessed and spectral Doppler was utilized to determine the flow velocities and pressure gradients reported in this exam. MEASUREMENTS: Value Indexed Normal Max aortic dimension 3.5 cm Ao < 3.8 Left atrial volume 99 ml (biplane A-L) 57 ml/m Manny <= 34 LV ID (diastole) 4.9 cm (2D) 2.82 cm/m LV ID (systole) 3.7 cm (2D) 2.13 cm/m IVS, leaflet tips 0.9 cm (2D) Posterior wall thickness 1.1 cm (2D) Left ventricular mass 176 g (2D) 101 g/m LV stroke volume 90 ml (2D biplane) LV end diastolic volume 161 ml (2D biplane) 92.6 ml/m 34<=EDVi<75 LV end systolic volume 71 ml (2D biplane) 41.1 ml/m Ejection Fraction 56 % (2D biplane) EF > 52 FINDINGS: LEFT VENTRICLE The left ventricle is moderately dilated. Left ventricular systolic function is normal regionally. Grade II left ventricular diastolic dysfunction. There is a single false tendon at the apex. Mitral annular lateral E/e': 7.3. Mitral annular septal E/e': 8.3. Wall Motion: The apical septal segment, apical inferior segment, and apex are akinetic. The apical lateral segment is mildly hypokinetic. All remaining scored segments are normal. RIGHT VENTRICLE The right ventricle is normal in size. Right ventricular systolic function is normal. RV systolic tissue Doppler velocity is 17.9 cm/s. Tricuspid annular displacement is 2.5 cm. Estimated right ventricular systolic pressure is 37 mmHg consistent with mild pulmonary hypertension. Estimated right atrial pressure is 3 mmHg based on IVC assessment. LEFT ATRIUM The left atrial cavity is severely dilated. Pulmonary Veins: The pulmonary venous pattern showed normal systolic flow. RIGHT ATRIUM The right atrial cavity is normal in size. Inferior Vena Cava: The inferior vena cava appears normal measuring 1.8 cm. The vessel decreases greater than 50 percent with inspiration. MITRAL VALVE There is mild mitral annular calcification observed posterior. There is mild (1+ - 2+) mitral valve regurgitation. There is mild thickening. The pressure half time is 50 msec. The peak mitral E/A ratio is 1.17. The mitral flow deceleration time is 174 msec. TRICUSPID VALVE The tricuspid valve leaflets are structurally normal. There is trace (trace - 1+) tricuspid valve regurgitation. AORTIC VALVE There is no aortic valve stenosis. There is no aortic valve regurgitation. Tricuspid aortic valve. There is mild calcification involving the commissures. The peak gradient is 11 mmHg (peak velocity = 167.0 cm/s). The LVOT diameter is 2.2 cm. PULMONIC VALVE The pulmonic valve was not seen or not interrogated. AORTA The visualized aorta is normal in size. Measurements - Sinus: 3.5 cm. Mid ascending aorta 3.4 cm. PULMONARY ARTERIES The pulmonary arteries are unseen or not interrogated. INTERATRIAL SEPTUM The interatrial septum is unseen or not interrogated. INTERVENTRICULAR SEPTUM The interventricular septum is normal. PERICARDIUM There is no pericardial effusion. Amadeo Anaya AUTO CLEANER.KENO WRITER ECHO Final Result [facility] [address] [place] [address] * CT BRAIN WO IVCON (08/01/2024 6:38 AM EDT) Anatomical Region Laterality Modality Head Computed Tomogra phy 08/01/2024 6:38 AM EDT Impressions 08/01/2024 6:44 AM EDT IMPRESSION: Examination not significantly changed from 07/31/2024. Front End Assistant: PSCB Transcribe Date/Time: Aug 01 2024 6:38A Dictated by : MATT AGUILERA MD This examination was interpreted and the report reviewed and electronically signed by: MATT AGUILERA MD on Aug 01 2024 6:42AM EST Narrative 08/01/2024 6:44 AM EDT * * *Final Report* * * DATE OF EXAM: Aug 01 2024 6:38AM [facility] 0504 - CT BRAIN WO IVCON / PROCEDURE REASON: Head trauma, moderate-severe * * * * Physician Interpretation * * * * EXAMINATION: CT BRAIN WO IVCON CLINICAL HISTORY: Head trauma. TECHNIQUE: Serial axial images without IV contrast were obtained from the vertex to the foramen magnum. MQ: CTBWO_3 CT Radiation dose: Integrated Dose-Length Product (DLP) for this visit = 839 mGy*cm CT Dose Reduction Employed: No dose reduction techniques were required COMPARISON: CT brain 07/31/2024. RESULT: Post-operative change: None. Acute change: No evidence of an acute infarct or other acute parenchymal process. Hemorrhage: No significant increase in volume of small volume subarachnoid hemorrhage and intraventricular hemorrhage. Mass Lesion / Mass Effect: There is no evidence of an intracranial mass or extraaxial fluid collection. No significant mass effect. Chronic change: None apparent. Parenchyma: There is mild generalized volume loss. The brain parenchyma is otherwise within normal limits for age. Ventricles: No significant increase in ventricular caliber. Paranasal sinuses and skull base: Layering fluid within the paranasal sinuses. The skull base and imaged soft tissues are unremarkable. Localizer images: No significant findings. Procedure Note Provider, [facility] - 08/01/2024 * * *Final Report* * * DATE OF EXAM: Aug 01 2024 6:38AM [facility] 0504 - CT BRAIN WO IVCON / PROCEDURE REASON: Head trauma, moderate-severe * * * * Physician Interpretation * * * * EXAMINATION: CT BRAIN WO IVCON CLINICAL HISTORY: Head trauma. TECHNIQUE: Serial axial images without IV contrast were obtained from the vertex to the foramen magnum. MQ: CTBWO_3 CT Radiation dose: Integrated Dose-Length Product (DLP) for this visit = 839 mGy*cm CT Dose Reduction Employed: No dose reduction techniques were required COMPARISON: CT brain 07/31/2024. RESULT: Post-operative change: None. Acute change: No evidence of an acute infarct or other acute parenchymal process. Hemorrhage: No significant increase in volume of small volume subarachnoid hemorrhage and intraventricular hemorrhage. Mass Lesion / Mass Effect: There is no evidence of an intracranial mass or extraaxial fluid collection. No significant mass effect. Chronic change: None apparent. Parenchyma: There is mild generalized volume loss. The brain parenchyma is otherwise within normal limits for age. Ventricles: No significant increase in ventricular caliber. Paranasal sinuses and skull base: Layering fluid within the paranasal sinuses. The skull base and imaged soft tissues are unremarkable. Localizer images: No significant findings. IMPRESSION IMPRESSION: Examination not significantly changed from 07/31/2024. Front End Assistant: ANGE Transcribe Date/Time: Aug 01 2024 6:38A Dictated by : MATT AGUILERA MD This examination was interpreted and the report reviewed and electronically signed by: MATT AGUILERA MD on Aug 01 2024 6:42AM EST Dylon Ochoa MD CT-PAMA Final Result * (ABNORMAL) GLUCOSE, BLOOD (POC) (08/01/2024 5:58 AM EDT) [facility] Glucose, Point of Care 110(A) 74 - 99 mg/dL [facility] Comment: Location:[facility], [id number] [place] [place], [facility] The Accu-Chek Inform II glucose meter has not been approved for testing on patients receiving intensive medical intervention or therapy and results from this point of care glucose test should not be used for patient management decisions in these cases. Inaccurate results may also occur from other interfering factors, such as N-acetylcysteine (blood concentrations of greater than 5mg/dL), galactose, extremes of hematocrit (<10 or >65), or high doses of ascorbic acid (vitamin C) greater than 3mg/dL. Consider alternate testing mechanisms (e.g. core lab, blood gas instrument) in the above situations. 08/01/2024 5:58 AM EDT Dylon Ochoa MD POC TESTING Final Result [facility] POINT OF CARE [facility] [address] [place], [place] * CT FACIAL BONE/MONICA WO IVCON (08/01/2024 5:01 AM EDT) Anatomical Region Laterality Modality Mandible Computed Tomogra phy 08/01/2024 5:00 AM EDT Impressions 08/01/2024 5:26 AM EDT IMPRESSION: No acute maxillofacial fracture. Similar distribution of intraventricular hemorrhage when compared to the prior head CT. Front End Assistant: ANGE Transcribe Date/Time: Aug 01 2024 5:20A Dictated by : KEITH CONN MD This examination was interpreted and the report reviewed and electronically signed by: KEITH CONN MD on Aug 01 2024 5:24AM EST Narrative 08/01/2024 5:26 AM EDT * * *Final Report* * * DATE OF EXAM: Aug 01 2024 5:00AM [facility] 0507 - CT FACIAL BONE/MONICA WO IVCON / PROCEDURE REASON: Nasal fracture suspected * * * * Physician Interpretation * * * * EXAMINATION: CT FACIAL BONE/MONICA WO IVCON CLINICAL HISTORY: Pain, evaluate for nasal fracture Technique: Spiral high resolution axial unenhanced images were obtained through the facial bones with sagittal and coronal planar reconstructions. MQ: CTMFWO_1 CT Radiation dose: Integrated Dose-Length Product (DLP) for this visit = 1440 mGy*cm. CT Dose Reduction Employed: Automated exposure control (AEC) COMPARISON: None. RESULT: Allowing for motion, greatest near the vertex: Soft Tissues: No significant superficial soft tissue swelling. Facial bones: No evidence of an acute fracture in the visualized facial bones. Orbits: No evidence of an acute fracture. The globes are intact. The soft tissue planes of the orbits are maintained. Paranasal Sinuses: Partial sphenoid sinus opacification. Partial right maxillary opacification. Foreign Bodies: No evidence of radiopaque foreign bodies. Other: Left lateral intraventricular hemorrhage as well as hemorrhage in the fourth ventricle, similar to the prior head CT.. Scattered dental caries. Procedure Note Provider, [facility] [place] - 08/01/2024 * * *Final Report* * * DATE OF EXAM: Aug 01 2024 5:00AM [facility] 0507 - CT FACIAL BONE/MONICA WO IVCON / PROCEDURE REASON: Nasal fracture suspected * * * * Physician Interpretation * * * * EXAMINATION: CT FACIAL BONE/MONICA WO IVCON CLINICAL HISTORY: Pain, evaluate for nasal fracture Technique: Spiral high resolution axial unenhanced images were obtained through the facial bones with sagittal and coronal planarreconstructions. MQ: CTMFWO_1 CT Radiation dose: Integrated Dose-Length Product (DLP) for this visit = 1440 mGy*cm. CT Dose Reduction Employed: Automated exposure control (AEC) COMPARISON: None. RESULT: Allowing for motion, greatest near the vertex: Soft Tissues: No significant superficial soft tissue swelling. Facial bones: No evidence of an acute fracture in the visualized facial bones. Orbits: No evidence of an acute fracture. The globes are intact. The soft tissue planes of the orbits are maintained. Paranasal Sinuses: Partial sphenoid sinus opacification. Partial right maxillary opacification. Foreign Bodies: No evidence of radiopaque foreign bodies. Other: Left lateral intraventricular hemorrhage as well as hemorrhage in the fourth ventricle, similar to the prior head CT.. Scattered dental caries. IMPRESSION IMPRESSION: No acute maxillofacial fracture. Similar distribution of intraventricular hemorrhage when compared to the prior head CT. Front End Assistant: [facility] Transcribe Date/Time: Aug 01 2024 5:20A Dictated by : KEITH CONN MD This examination was interpreted and the report reviewed and electronically signed by: KEITH CONN MD on Aug 01 2024 5:24AM EST Amadeo Andersonsarahi AUTO CLEANER.KENO WRITER CT-PAMA Final Result * (ABNORMAL) CT CHEST WO IVCON (08/01/2024 5:01 AM EDT) [facility] Radiology Result ACTIONABLE (Actionabl e) [facility] Comment: This report contains an incidental or actionable finding. This finding may be a new finding separate from the reason your provider ordered the imaging test or it may be an already known finding that needs additional or continued follow-up. Because of this incidental or actionable finding, you may need another test (imaging or a different type of test). Please contact your provider for the next steps. Anatomical Region Laterality Modality Chest Computed Tomogra phy 08/01/2024 5:00 AM EDT Impressions 08/01/2024 5:38 AM EDT IMPRESSION: 1. Acute versus subacute nondisplaced posterior RIGHT 9th through 12th rib fractures. 2. Subacute appearing transverse sternum fracture. 3. Trace RIGHT pleural effusion. 4. Mild centrilobular emphysema. 5. Incidental 17 mm groundglass nodule in the RIGHT upper lobe. Recommend follow-up chest CT in 6-12 months. 6. Hepatic steatosis. Incidental Finding: Follow-up Acuity: Incidental Finding: Non solid: 6 mm or greater (solitary nodule) Routing Code: RI_1 Recommendation: CT Chest WO IVCON Time Frame: 6-12 months Comments: If stable on follow-up imaging, repeat chest CT exams in 24 and 48 months are recommended (at 30-36 and 54-60 months from the initial exam) --END OF FINDING-- Front End Assistant: ANGE Transcribe Date/Time: Aug 01 2024 5:19A Dictated by : LEEROY EDMONDS MD This examination was interpreted and the report reviewed and electronically signed by: LEEROY EDMONDS MD on Aug 01 2024 5:36AM EST Narrative 08/01/2024 5:38 AM EDT * * *Final Report* * * DATE OF EXAM: Aug 01 2024 5:00AM [facility] 0541 - CT CHEST WO IVCON / PROCEDURE REASON: Chest trauma, blunt * * * * Physician Interpretation * * * * EXAMINATION: CHEST CT WITHOUT CONTRAST CLINICAL HISTORY: Fall from standing. Technique: Spiral CT acquisition of the chest from the thoracic inlet to the upper abdomen without contrast. MQ: CTCWO_6 CT Radiation dose: Integrated Dose-length product (DLP) for this visit = 1440 mGy*cm CT Dose Reduction Employed: Automated exposure control (AEC) Comparison: 05/10/2022 RESULT: Limitations: None. Lines, tubes, and devices: None. Lung parenchyma, pleura and airways: Trace RIGHT pleural effusion. Mild bilateral dependent atelectasis. Mild centrilobular emphysema. 17 mm groundglass nodule in the RIGHT upper lobe, new from 05/10/2022. Lower neck, lymph nodes, and mediastinum: The imaged thyroid gland is normal. No lymphadenopathy in the supraclavicular, axillary, mediastinal, or hilar regions. Heart, pericardium, and thoracic vessels: The thoracic aorta and main pulmonary artery are normal in caliber. The cardiac chambers are normal in size. Coronary artery atherosclerotic calcifications and coronary artery stents are noted, although the study is not optimized for coronary assessment. No pericardial effusion or thickening. Bones and soft tissues: Acute versus subacute nondisplaced posterior RIGHT 9th through 12th rib fractures. Subacute appearing transverse sternum fracture with callus formation at the fracture margins. Additional chronic healed sternal fracture. Chronic compression deformities of T1-T3 and T10-L1. Partially imaged anterior cervical fusion hardware. Upper abdomen: Hepatic steatosis. Prior cholecystectomy. Nonnodular thickening of the LEFT adrenal gland, similar to prior. Localizer images: No additional findings. Procedure Note Provider, [facility] [place] - 08/01/2024 * * *Final Report* * * DATE OF EXAM: Aug 01 2024 5:00AM [facility] 0541 - CT CHEST WO IVCON / PROCEDURE REASON: Chest trauma, blunt * * * * Physician Interpretation * * * * EXAMINATION: CHEST CT WITHOUT CONTRAST CLINICAL HISTORY: Fall from standing. Technique: Spiral CT acquisition of the chest from the thoracic inlet to the upper abdomen without contrast. MQ: CTCWO_6 CT Radiation dose: Integrated Dose-length product (DLP) for this visit = 1440 mGy*cm CT Dose Reduction Employed: Automated exposure control (AEC) Comparison: 05/10/2022 RESULT: Limitations: None. Lines, tubes, and devices: None. Lung parenchyma, pleura and airways: Trace RIGHT pleural effusion. Mild bilateral dependent atelectasis. Mild centrilobular emphysema. 17 mm groundglass nodule in the RIGHT upper lobe, new from 05/10/2022. Lower neck, lymph nodes, and mediastinum: The imaged thyroid gland is normal. No lymphadenopathy in the supraclavicular, axillary, mediastinal, or hilar regions. Heart, pericardium, and thoracic vessels: The thoracic aorta and main pulmonary artery are normal in caliber. The cardiac chambers are normal in size. Coronary artery atherosclerotic calcifications and coronary artery stents are noted, although the study is not optimized for coronary assessment. No pericardial effusion or thickening. Bones and soft tissues: Acute versus subacute nondisplaced posterior RIGHT 9th through 12th rib fractures. Subacute appearing transverse sternum fracture with callus formation at the fracture margins. Additional chronic healed sternal fracture. Chronic compression deformities of T1-T3 and T10-L1. Partially imaged anterior cervical fusion hardware. Upper abdomen: Hepatic steatosis. Prior cholecystectomy. Nonnodular thickening of the LEFT adrenal gland, similar to prior. Localizer images: No additional findings. IMPRESSION IMPRESSION: 1. Acute versus subacute nondisplaced posterior RIGHT 9th through 12th rib fractures. 2. Subacute appearing transverse sternum fracture. 3. Trace RIGHT pleural effusion. 4. Mild centrilobular emphysema. 5. Incidental 17 mm groundglass nodule in the RIGHT upper lobe. Recommend follow-up chest CT in 6-12 months. 6. Hepatic steatosis. Incidental Finding: Follow-up Acuity: Incidental Finding: Non solid: 6 mm or greater (solitary nodule) Routing Code: RI_1 Recommendation: CT Chest WO IVCON Time Frame: 6-12 months Comments: If stable on follow-up imaging, repeat chest CT exams in 24 and 48 months are recommended (at 30-36 and 54-60 months from the initial exam) --END OF FINDING-- Front End Assistant: ANGE Transcribe Date/Time: Aug 01 2024 5:19A Dictated by : LEEROY EDMONDS MD This examination was interpreted and the report reviewed and electronically signed by: LEEROY EDMONDS MD on Aug 01 2024 5:36AM EST Amadeo Anaya AUTO CLEANER.KENO WRITER CT-PAMA Final Result * PHOSPHORUS INORGANIC (08/01/2024 4:42 AM EDT) Phosphorus 2.9 2.7 - 4.8 mg/dL 08/01/2024 5:56 AM EDT [facility] Blood BLOOD SPECIMEN / Unknown Venipuncture / Unknown 08/01/2024 4:42 AM EDT 08/01/2024 5:29 AM EDT Dru Lorenzana MD LABORATORY Final Re sult Performing Organization Address [facility] de Phone Number [facility] [address] [place] [address], * (ABNORMAL) MAGNESIUM (08/01/2024 4:42 AM EDT) Magnesium 1.0(L) 1.7 - 2.3 mg/dL 08/01/2024 5:56 AM EDT [facility] Blood BLOOD SPECIMEN / Unknown Venipuncture / Unknown 08/01/2024 4:42 AM EDT 08/01/2024 5:29 AM EDT Dru Lorenzana MD LABORATORY Final Re sult Performing Organization Address [facility] Co de Phone Number [facility] [id number] [place] [address], * (ABNORMAL) BASIC METABOLIC PANEL (08/01/2024 4:42 AM EDT) [facility] Glucose 91 74 - 99 mg/dL 08/01/2024 5:56 AM [facility] Comment: The [place] Diabetes Association (ADA) provides guidance for cutoff values for fasting glucose and random glucose. The ADA defines fasting as no caloric intake for at least 8 hours. Fasting plasma glucose results between 100 to 125 mg/dL indicate increased risk for diabetes (prediabetes). Fasting plasma glucose results greater than or equal to 126 mg/dL meet the criteria for diagnosis of diabetes. In the absence of unequivocal hyperglycemia, results should be confirmed by repeat testing. In a patient with classic symptoms of hyperglycemia or hyperglycemic crisis, random plasma glucose results greater than or equal to 200 mg/dL meet the criteria for diagnosis of diabetes. Reference: Standards of Medical Care in Diabetes 2016, [place] [employer]. Diabetes Care. 2016.39(Suppl 1). BUN 3(L) 9 - 24 mg/dL 08/01/2024 5:56 AM [facility] Creatinine 0.53(L) 0.73 - 1.22 mg/dL 08/01/2024 5:56 AM [facility] Sodium 135(L) 136 - 144 mmol/L 08/01/2024 5:56 AM [facility] Potassium 3.2(L) 3.7 - 5.1 mmol/L 08/01/2024 5:56 AM [facility] Chloride 99 98 - 107 mmol/L 08/01/2024 5:56 AM [facility] CO2 22 22 - 30 mmol/L 08/01/2024 5:56 AM [facility] Anion Gap 14 8 - 15 mmol/L 08/01/2024 5:56 AM [facility] Calcium, Total 8.0(L) 8.5 - 10.2 mg/dL 08/01/2024 5:56 AM [facility] Estimated Glomerular Filtration Rate 113 >=60 mL/min/1. 73m 08/01/2024 5:56 AM [facility] Comment:Estimated Glomerular Filtration Rate (eGFR) is calculated using the 2020 CKD-EPI creatinine equation. This equation utilizes serum creatinine, sex, and age as parameters. The creatinine assay has traceable calibration to isotope dilution- mass spectrometry. Refer to KDIGO guidelines for clinical interpretation. In patients with unstable renal function, e.g. those with acute kidney injury, the eGFR may not accurately reflect actual GFR. Blood BLOOD SPECIMEN / Unknown Venipuncture / Unknown 08/01/2024 4:42 AM EDT 08/01/2024 5:29 AM EDT us Dru Lorenzana MD LABORATORY Final Re sult [facility] [address] [place] [address], * (ABNORMAL) COMPLETE BLOOD COUNT (08/01/2024 4:42 AM EDT) WBC 9.39 3.70 - 11.00 k/uL 08/01/2024 5:38 AM EDT [facility] RBC 3.23(L) 4.20 - 6.00 m/uL 08/01/2024 5:38 AM EDT [facility] Hemoglobin 7.2(L) 13.0 - 17.0 g/dL 08/01/2024 5:38 AM EDT [facility] Hematocrit 23.8(L) 39.0 - 51.0 % 08/01/2024 5:[facility] MCV 73.7(L) 80.0 - 100.0 fL 08/01/2024 5:38 AM EDT [facility] MCH 22.3(L) 26.0 - 34.0 pg 08/01/2024 5:38 AM EDT [facility] MCHC 30.3(L) 30.5 - 36.0 g/dL 08/01/2024 5:38 AM [facility] RDW-CV 20.2(H) 11.5 - 15.0 % 08/01/2024 5:38 AM EDT [facility] Platelet Count 320 150 - 400 k/uL 08/01/2024 5:38 AM [facility] MPV 8.8(L) 9.0 - 12.7 fL 08/01/2024 5:38 AM [facility] Absolute nRBC <0.01 <0.01 k/uL 08/01/2024 5:38 AM EDT [facility] Blood BLOOD SPECIMEN / Unknown Venipuncture / Unknown 08/01/2024 4:42 AM EDT 08/01/2024 5:20 AM EDT us Dru Lorenzana MD LABORATORY Final Re sult [facility] [address] [place] [address], * EPIL EEG BEM - CONTINUOUS BEDSIDE W/VIDEO INCLUDES PORTABLE EEG READ (08/01/2024 12:00 AM EDT) 08/01/2024 Narrative NEUROLOGY - 08/02/2024 11:58 AM EDT [facility] EPIL EEG BEM - Continuous bedside w/video includes portable EEG read [[id number]] Patient name: SARAY CORBIN Date of test: 08/01/2024 Requested By: AMADEO ANAYA Staff Physician: Anirudh Castellanos M.D. EEG Fellow or Sobieski: Antonio Garza History: 63 year old male with a medical history significant for seizures, CVA on plavix, anxiety/depression, COPD, LUZ, HTN, CHF, CAD, HLD, and chronic anemia who presents for mechanical fall with head wound. Patient tripped and fell into marble countertop, lost consciousness and was witnessed having what appeared to be seizure activity. CT Brain - Hemorrhage seen in the left lateral ventricle. Trace layering hemorrhagic in the occipital horns bilaterally. Small amount of hemorrhage in the fourth ventricle. Trace subarachnoid hemorrhage overlying the right temporal lobe (image 20, 2). Small amount of subarachnoid hemorrhage overlying the tentorium on the left. EEG was ordered for: Unspecified convulsions Etiology: Epilepsy NOS Conditions: Lethargy Awake Diagnosis: Primary: R56.9 Unspecified convulsions BEM Read Period: 08/01/2024 09:06:00 AM - 08/02/2024 09:00:00 AM Read duration: 1434 minutes Classifications: Abnormal II (10-[address] Scal[address] Electrodes, [address]-Compatible Electrodes, Anterior Temporal Electrodes, Lethargy, Awake) Interictal: Continuous Slow, Generalized, Maximum, Left Fronto-temporal Impression: Continuous Video-EEG was reviewed from 905 on 08/01/2024 to 899 on 08/02/2024 and is suggestive of a cortical dysfunction in the left fronto-temporal region. There is also evidence of a moderate diffuse encephalopathy. No epileptiform discharges or EEG seizures were recorded. Interpreted and electronically signed by Anirudh Castellanos M.D. Date of signin08/02/2024 11:58 Amadeo Anaya APRN.[facility] Final Result Performing Organization Address City/State/[facility] Co de Phone Number NEUROLOGY [address] [place] [address], * (ABNORMAL) GLUCOSE, BLOOD (POC) (07/31/2024 11:50 PM EDT) [facility] Glucose, Point of Care 103(A) 74 - 99 mg/dL [facility] Comment: Location:[facility], [address] [place] [address] The Accu-Chek Inform II glucose meter has not been approved for testing on patients receiving intensive medical intervention or therapy and results from this point of care glucose test should not be used for patient management decisions in these cases. Inaccurate results may also occur from other interfering factors, such as N-acetylcysteine (blood concentrations of greater than 5mg/dL), galactose, extremes of hematocrit (<10 or >65), or high doses of ascorbic acid (vitamin C) greater than 3mg/dL. Consider alternate testing mechanisms (e.g. core lab, blood gas instrument) in the above situations. 07/31/2024 11:5 0 PM EDT us Dylon Ochoa MD POC TESTING Final Result [facility] POINT OF CARE [facility] [address] [place], [place] * US CAROTID BILATERAL (07/31/2024 6:53 PM EDT) Anatomical Region Laterality Modality Neck Ultrasound 07/31/2024 6:53 PM EDT Impressions 08/01/2024 7:13 AM EDT IMPRESSION: Bilateral carotid artery duplex with approximately 0-29% stenosis bilaterally. Note: The percentage of stenosis was determined from the NASCET criteria. Front End Assistant: PSCB Transcribe Date/Time: Aug 01 2024 7:09A Dictated by : SANA MOONEY MD This examination was interpreted and the report reviewed and electronically signed by: SANA MOONEY MD on Aug 01 2024 7:11AM EST Narrative 08/01/2024 7:13 AM EDT * * *Final Report* * * DATE OF EXAM: Jul 31 2024 6:53PM FVU 1077 - US CAROTID ELTON / PROCEDURE REASON: Other * * * * Physician Interpretation * * * * BILATERAL CAROTID ULTRASOUND DOPPLER: CLINICAL DATA: Syncope RESULT: Internal carotid artery peak systolic velocity (cm/s): [id number] Ilha599 Internal carotid artery end diastolic velocity (cm/s): Right38 Left50 Common carotid artery peak systolic velocity (cm/s): [id number] Ityb699 External carotid artery peak systolic velocity (cm/s): Rvljp947 Ufzd690 ICA/CCA systolic velocity ratio: Right0.7 Left0.9 Vertebral arteries: Antegrade bilaterally Comments: The grayscale images demonstrate a small amount of plaque in the right bulb, the right proximal internal carotid artery, the left bulb, and the left internal carotid artery. . Procedure Note Provider, [facility] [place] - 08/01/2024 * * *Final Report* * * DATE OF EXAM: Jul 31 2024 6:53PM FVU 1077 - US CAROTID ELTON / PROCEDURE REASON: Other * * * * Physician Interpretation * * * * BILATERAL CAROTID ULTRASOUND DOPPLER: CLINICAL DATA: Syncope RESULT: Internal carotid artery peak systolic velocity (cm/s): Tqzyn601 Kyai303 Internal carotid artery end diastolic velocity (cm/s): Right38 Left50 Common carotid artery peak systolic velocity (cm/s): Lzvwg255 Njmp678 External carotid artery peak systolic velocity (cm/s): Yzisu141Ydfp675 ICA/CCA systolic velocity ratio: Right0.7 Left0.9 Vertebral arteries: Antegrade bilaterally Comments: The grayscale images demonstrate a small amount of plaque in the right bulb, the right proximal internal carotid artery, the left bulb, and the left internal carotid artery. . IMPRESSION IMPRESSION: Bilateral carotid artery duplex with approximately 0-29% stenosis bilaterally. Note: The percentage of stenosis was determined from the NASCETcriteria. Front End Assistant: PSCB Transcribe Date/Time: Aug 01 2024 7:09A Dictated by : SANA MOONEY MD This examination was interpreted and the report reviewed and electronically signed by: SANA MOONEY MD on Aug 01 2024 7:11AM EST Amadeo Anaya APRN.KENO WRITER US-PAMA Final Result * GLUCOSE, BLOOD (POC) (07/31/2024 6:00 PM EDT) [facility] Glucose, Point of Care 98 74 - 99 mg/dL [facility] Comment: Location:[facility], [address] [place] [address], [facility] The Accu-Chek Inform II glucose meter has not been approved for testing on patients receiving intensive medical intervention or therapy and results from this point of care glucose test should not be used for patient management decisions in these cases. Inaccurate results may also occur from other interfering factors, such as N-acetylcysteine (blood concentrations of greater than 5mg/dL), galactose, extremes of hematocrit (<10 or >65), or high doses of ascorbic acid (vitamin C) greater than 3mg/dL. Consider alternate testing mechanisms (e.g. core lab, blood gas instrument) in the above situations. 07/31/2024 6:00 PM EDT Dylon Ochoa MD POC TESTING Final Result [facility] OF CARE [facility] [address] [address] [place], [place] * STAPHYLOCOCCUS AUREUS & MRSA SCREEN, PCR, NASAL (07/31/2024 11:56 AM EDT) [facility] Staphylococcus aureus DNA Not Detected Not Detected CEPHEID GENEXPERT COVID19 07/31/2024 8:11 PM EDT [facility] Swab POSTERIOR NARES / Unknown Non Blood / Unknown 07/31/2024 11:56 AM EDT 07/31/2024 12:10 PM EDT us Dru Lorenzana MD LABORATORY Final Re sult Performing Organization Address [facility]/ZIP Co de Phone Number [facility] [address] [place] [address], * (ABNORMAL) GLUCOSE, BLOOD (POC) (07/31/2024 11:40 AM EDT) [facility] Glucose, Point of Care 100(A) 74 - 99 mg/dL [facility] Comment: Location:[facility], [address], [place], [facility] The Accu-Chek Inform II glucose meter has not been approved for testing on patients receiving intensive medical intervention or therapy and results from this point of care glucose test should not be used for patient management decisions in these cases. Inaccurate results may also occur from other interfering factors, such as N-acetylcysteine (blood concentrations of greater than 5mg/dL), galactose, extremes of hematocrit (<10 or >65), or high doses of ascorbic acid (vitamin C) greater than 3mg/dL. Consider alternate testing mechanisms (e.g. core lab, blood gas instrument) in the above situations. 07/31/2024 11:4 0 AM EDT us Dylon Ochoa MD POC TESTING Final Result Performing Organization Address [facility]/ZIP Co de Phone Number [facility] POINT OF CARE [facility] [address] [place], [place] * CT BRAIN WO IVCON (07/31/2024 10:43 AM EDT) Anatomical Region Laterality Modality Head Computed Tomogra phy 07/31/2024 10:4 3 AM EDT Impressions 07/31/2024 11:27 AM EDT IMPRESSION: 1. Intraventricular and subarachnoid hemorrhage again seen. Similar to prior study. 2. Layering blood products in the right maxillary sinus and left sphenoid sinus, unchanged Front End Assistant: ANGE Transcribe Date/Time: Jul 31 2024 11:13A Dictated by : GUSTAVO QUINTANA MD This examination was interpreted and the report reviewed and electronically signed by: GUSTAVO QUINTANA MD on Jul 31 2024 11:25AM EST Narrative 07/31/2024 11:27 AM EDT * * *Final Report* * * DATE OF EXAM: Jul 31 2024 10:43AM FVC 0504 - CT BRAIN WO IVCON / PROCEDURE REASON: Subarachnoid hemorrhage (SAH), follow up * * * * Physician Interpretation * * * * EXAMINATION: CT BRAIN WO IVCON CLINICAL HISTORY: Subarachnoid hemorrhage follow-up TECHNIQUE: Serial axial images without IV contrast were obtained from the vertex to the foramen magnum. MQ: CTBWO_3 CT Radiation dose: Integrated Dose-Length Product (DLP) for this visit = 731 mGy*cm CT Dose Reduction Employed: Iterative recon COMPARISON: CT 07/23/2024. RESULT: Post-operative change: None. Acute change: No evidence of an acute infarct or other acute parenchymal process. Hemorrhage: Hemorrhage seen in the left lateral ventricle. Trace layering hemorrhagic in the occipital horns bilaterally. Small amount of hemorrhage in the fourth ventricle. Trace subarachnoid hemorrhage overlying the right temporal lobe (image 20, 2). Small amount of subarachnoid hemorrhage overlying the tentorium on the left (image 13, 2) Mass Lesion / Mass Effect: There is no evidence of an intracranial mass or extraaxial fluid collection. No significant mass effect. Chronic change: Scattered patchy foci of low attenuation are present within the supratentorial white matter, a nonspecific finding that most commonly represents mild small vessel disease. Parenchyma: There is mild generalized volume loss. The brain parenchyma is otherwise within normal limits for age. Ventricles: Ventricular enlargement concordant with the degree of parenchymal volume loss. Paranasal sinuses and skull base: Layering blood products in the right maxillary sinus and the left sphenoid sinus. Similar to prior study. Minimal subcutaneous edema overlying the right frontal region. Localizer images: No additional findings. Procedure Note Provider, [facility] [place] - 07/31/2024 * * *Final Report* * * DATE OF EXAM: Jul 31 2024 10:43AM FVC 0504 - CT BRAIN WO IVCON / PROCEDURE REASON: Subarachnoid hemorrhage (SAH), follow up * * * * Physician Interpretation * * * * EXAMINATION: CT BRAIN WO IVCON CLINICAL HISTORY: Subarachnoid hemorrhage follow-up TECHNIQUE: Serial axial images without IV contrast were obtained from the vertex to the foramen magnum. MQ: CTBWO_3 CT Radiation dose: Integrated Dose-Length Product (DLP) for this visit = 731 mGy*cm CT Dose Reduction Employed: Iterative recon COMPARISON: CT 07/23/2024. RESULT: Post-operative change: None. Acute change: No evidence of an acute infarct or other acute parenchymal process. Hemorrhage: Hemorrhage seen in the left lateral ventricle. Trace layering hemorrhagic in the occipital horns bilaterally. Small amount of hemorrhage in the fourth ventricle. Trace subarachnoid hemorrhage overlying the right temporal lobe (image 20, 2). Small amount of subarachnoid hemorrhage overlying the tentorium on the left (image 13,2) Mass Lesion / Mass Effect: There is no evidence of an intracranial mass or extraaxial fluid collection. No significant mass effect. Chronic change: Scattered patchy foci of low attenuation are present within the supratentorial white matter, a nonspecific finding that most commonly represents mild small vessel disease. Parenchyma: There is mild generalized volume loss. The brain parenchyma is otherwise within normal limits for age. Ventricles: Ventricular enlargement concordant with the degree of parenchymal volume loss. Paranasal sinuses and skull base: Layering blood products in the right maxillary sinus and the left sphenoid sinus. Similar to prior study. Minimal subcutaneous edema overlying the right frontal region. Localizer images: No additional findings. IMPRESSION IMPRESSION: 1. Intraventricular and subarachnoid hemorrhage again seen. Similar to prior study. 2. Layering blood products in the right maxillary sinus and left sphenoid sinus, unchanged Front End Assistant: ANGE Transcribe Date/Time: Jul 31 2024 11:13A Dictated by : GUSTAVO QUINTANA MD This examination was interpreted and the report reviewed and electronically signed by: GUSTAVO QUINTANA MD on Jul 31 2024 11:25AM EST Dru Lorenzana MD CT-PAMA Final Re sult * (ABNORMAL) URINALYSIS, WITH MICROSCOPIC (07/31/2024 8:23 AM EDT) Color Colorless Yellow 07/31/2024 8:36 AM EDT [facility] Clarity Clear Clear 07/31/2024 8:36 AM EDT [facility] Glucose, Urine 4+(A) Trace, Negative 07/31/2024 8:36 AM EDT [facility] Bilirubin, Urine Negative Negative 08/01/19 8:36 AM EDT [facility] Ketones, Urine Negative Negative, Trace 07/31/2024 8:36 AM EDT [facility] Specific [place], Ur 1.011 1.005 - 1.030 07/31/2024 8:36 AM EDT [facility] Hemoglobin/Blood ,Ur Negative Negative, Trace 07/31/2024 8:36 AM EDT [facility] pH, Urine 6.0 5.0 - 8.0 07/31/2024 8:36 AM EDT [facility] Protein, Urine Negative Trace, Negative 07/31/2024 8:36 AM EDT [facility] Urobilinogen Normal Normal 07/31/2024 8:36 AM EDT [facility] Nitrites Negative Negative 07/31/2024 8:36 AM EDT [facility] Leuk Esterase Negative Negative, 25 Felisha/uL 07/31/2024 8:36 AM EDT [facility] WBC, Urine 0-5 /HPF 0-5 /HPF 07/31/2024 8:36 AM EDT [facility] RBC, Urine 0-3 /HPF 0-3 /HPF 07/31/2024 8:36 AM EDT [facility] Urine URINE SPECIMEN / Unknown Non Blood / Unknown 07/31/2024 8:23 AM EDT 07/31/2024 8:27 AM EDT us Dru Lorenzana MD LABORATORY Final Re sult [facility] [address] [place] [address], * (ABNORMAL) TOXICOLOGY SCREEN, ROUTINE URINE (07/31/2024 8:23 AM EDT) Phencyclidine , Urine Negative Negative 07/31/2024 9:01 AM [facility] Comment:Cutoff threshold at 25 ng/mL. Benzodiazepin es, Urine Preliminary positive(A) Negative 07/31/2024 9:01 AM [facility] Comment:Cutoff threshold at 200 ng/mL. Cocaine, Urine Negative Negative 07/31/2024 9:01 AM [facility] Comment:Cutoff threshold at 300 ng/mL. Amphetamines, Urine Negative Negative 07/31/2024 9:01 AM [facility] Comment:Cutoff threshold at 1000 ng/mL. Cannabinoids, Urine Negative Negative 07/31/2024 9:01 AM [facility] Comment:Cutoff threshold at 50 ng/mL. Opiates, Urine Negative Negative 07/31/2024 9:01 AM [facility] Comment:Cutoff threshold at 300 ng/mL. Barbiturates, Urine Negative Negative 07/31/2024 9:01 AM [facility] Comment:Cutoff threshold at 200 ng/mL. Ethanol, Urine 13(H) <11 mg/dL 07/31/2024 9:01 AM [facility] Oxycodone, Urine Negative Negative 07/31/2024 9:01 AM [facility] Comment:Cutoff threshold at 100 ng/mL. Urine URINE SPECIMEN / Unknown Non Blood / Unknown 07/31/2024 8:23 AM EDT 07/31/2024 8:27 AM EDT Narrative [facility] - 07/31/2024 9:01 AM EDT Immunoassay screen only. Cross reactivity with other substances can occur with immunoassay screening. Detection of any drug(s) in this urine toxicology panel is presumptive only. These tests are for medical purposes only and should not be used for compliance monitoring, legal, or forensic use. Samples should be within normal physiological conditions (e.g. pH). This assay does not include adulteration/specimen validity testing. In clinical settings, confirmatory testing is at the practitioner's discretion [1]. If clinically indicated, confirmation by high specificity, quantitative methodology, which includes adulteration/specimen validity testing, may be requested on the same specimen through Client Services ([phone]) if contacted within 48 hours of initial testing. [1]Substance Abuse and Mental Health Services Administration (2012). Clinical Drug Testing in Primary Care Technical Assistance Publication Series 32. Department of Health and Human Services, [place], p.10. us Dru Lorenzana MD LABORATORY Final Re sult [facility] [address] [place] [address], * XR FOREARM GENERAL 2V AP/LAT RIGHT (07/31/2024 7:42 AM EDT) Anatomical Region Laterality Modality Forearm Radiographic Adriana ging 07/31/2024 7:42 AM EDT Impressions 07/31/2024 7:59 AM EDT IMPRESSION: No acute osseous abnormality. Front End Assistant: ANGE Transcribe Date/Time: Jul 31 2024 7:52A Dictated by : RANDOLPH MCCORD DO This examination was interpreted and the report reviewed and electronically signed by: RANDOLPH MCCORD DO on Jul 31 2024 7:57AM EST Narrative 07/31/2024 7:59 AM EDT * * *Final Report* * * DATE OF EXAM: Jul 31 2024 7:42AM FVX 5342 - XR FOREARM 2V AP/LAT RT / PROCEDURE REASON: Trauma * * * * Physician Interpretation * * * * EXAMINATION / TECHNIQUE: XR HUMERUS 2V AP/LAT RT, XR FOREARM 2V AP/LAT RT, XR ELBOW 2V AP/LAT RT PATIENT/TECHNOLOGIST PROVIDED HISTORY: Trauma II, fall, laceration to right elbow CLINICAL INFORMATION ( PROVIDED BY ORDERING CLINICIAN) : Trauma COMPARISON: None RESULT: 2 views obtained of the right humerus, elbow and forearm. No acute fracture or dislocation. Joint spaces are maintained. Mild posterior elbow soft tissue swelling. The elbow joint effusion. No radiopaque foreign body. Procedure Note Provider, [facility] [place] - 07/31/2024 * * *Final Report* * * DATE OF EXAM: Jul 31 2024 7:42AM [id number] 5342 - XR FOREARM 2V AP/LAT RT / PROCEDURE REASON: Trauma * * * * Physician Interpretation * * * * EXAMINATION / TECHNIQUE: XR HUMERUS 2V AP/LAT RT, XR FOREARM 2V AP/LAT RT, XR ELBOW 2V AP/LAT RT PATIENT/TECHNOLOGIST PROVIDED HISTORY: Trauma II, fall, laceration to right elbow CLINICAL INFORMATION ( PROVIDED BY ORDERING CLINICIAN) : Trauma COMPARISON: None RESULT: 2 views obtained of the right humerus, elbow and forearm. No acute fracture or dislocation. Joint spaces are maintained. Mild posterior elbow soft tissue swelling. The elbow joint effusion. No radiopaque foreign body. IMPRESSION IMPRESSION: No acute osseous abnormality. Front End Assistant: [facility] Transcribe Date/Time: Jul 31 2024 7:52A Dictated by : RANDOLPH MCCORD DO This examination was interpreted and the report reviewed and electronically signed by: RANDOLPH MCCORD DO on Jul 31 2024 7:57AM EST us Dru Lorenzana MD RAD-[facility] Final Re sult * XR HUMERUS 2V AP/LAT RIGHT (07/31/2024 7:42 AM EDT) Anatomical Region Laterality Modality Humerus Radiographic Adriana ging 07/31/2024 7:42 AM EDT Impressions 07/31/2024 7:59 AM EDT IMPRESSION: No acute osseous abnormality. Front End Assistant: [facility] Transcribe Date/Time: Jul 31 2024 7:52A Dictated by : RANDOLPH MCCORD DO This examination was interpreted and the report reviewed and electronically signed by: RANDOLPH MCCORD DO on Jul 31 2024 7:57AM EST Narrative 07/31/2024 7:59 AM EDT * * *Final Report* * * DATE OF EXAM: Jul 31 2024 7:42AM [id number] [id number] - XR HUMERUS 2V AP/LAT RT / PROCEDURE REASON: Trauma * * * * Physician Interpretation * * * * EXAMINATION / TECHNIQUE: XR HUMERUS 2V AP/LAT RT, XR FOREARM 2V AP/LAT RT, XR ELBOW 2V AP/LAT RT PATIENT/TECHNOLOGIST PROVIDED HISTORY: Trauma II, fall, laceration to right elbow CLINICAL INFORMATION ( PROVIDED BY ORDERING CLINICIAN) : Trauma COMPARISON: None RESULT: 2 views obtained of the right humerus, elbow and forearm. No acute fracture or dislocation. Joint spaces are maintained. Mild posterior elbow soft tissue swelling. The elbow joint effusion. No radiopaque foreign body. Procedure Note Provider, [facility] [place] - 07/31/2024 * * *Final Report* * * DATE OF EXAM: Jul 31 2024 7:42AM [id number] [id number] - XR HUMERUS 2V AP/LAT RT / PROCEDURE REASON: Trauma * * * * Physician Interpretation * * * * EXAMINATION / TECHNIQUE: XR HUMERUS 2V AP/LAT RT, XR FOREARM 2V AP/LAT RT, XR ELBOW 2V AP/LAT RT PATIENT/TECHNOLOGIST PROVIDED HISTORY: Trauma II, fall, laceration to right elbow CLINICAL INFORMATION ( PROVIDED BY ORDERING CLINICIAN) : Trauma COMPARISON: None RESULT: 2 views obtained of the right humerus, elbow and forearm. No acute fracture or dislocation. Joint spaces are maintained. Mild posterior elbow soft tissue swelling. The elbow joint effusion. No radiopaque foreign body. IMPRESSION IMPRESSION: No acute osseous abnormality. Front End Assistant: [facility] Transcribe Date/Time: Jul 31 2024 7:52A Dictated by : RANDOLPH MCCORD DO This examination was interpreted and the report reviewed and electronically signed by: RANDOLPH MCCORD DO on Jul 31 2024 7:57AM EST us Dru Lorenzana MD RAD-PAMA Final Re sult * XR ELBOW GENERAL 2V AP/LAT RIGHT (07/31/2024 7:42 AM EDT) Anatomical Region Laterality Modality Elbow Radiographic Adriana ging 07/31/2024 7:42 AM EDT Impressions 07/31/2024 7:59 AM EDT IMPRESSION: No acute osseous abnormality. Front End Assistant: [facility] Transcribe Date/Time: Jul 31 2024 7:52A Dictated by : RANDOLPH MCCORD DO This examination was interpreted and the report reviewed and electronically signed by: RANDOLPH MCCORD DO on Jul 31 2024 7:57AM EST Narrative 07/31/2024 7:59 AM EDT * * *Final Report* * * DATE OF EXAM: Jul 31 2024 7:42AM [id number] [id number] - XR ELBOW 2V AP/LAT RT / PROCEDURE REASON: Elbow trauma, no prior imaging * * * * Physician Interpretation * * * * EXAMINATION / TECHNIQUE: XR HUMERUS 2V AP/LAT RT, XR FOREARM 2V AP/LAT RT, XR ELBOW 2V AP/LAT RT PATIENT/TECHNOLOGIST PROVIDED HISTORY: Trauma II, fall, laceration to right elbow CLINICAL INFORMATION ( PROVIDED BY ORDERING CLINICIAN) : Trauma COMPARISON: None RESULT: 2 views obtained of the right humerus, elbow and forearm. No acute fracture or dislocation. Joint spaces are maintained. Mild posterior elbow soft tissue swelling. The elbow joint effusion. No radiopaque foreign body. Procedure Note Provider, [facility] [place] - 07/31/2024 * * *Final Report* * * DATE OF EXAM: Jul 31 2024 7:42AM FVX [id number] - XR ELBOW 2V AP/LAT RT / PROCEDURE REASON: Elbow trauma, no prior imaging * * * * Physician Interpretation * * * * EXAMINATION / TECHNIQUE: XR HUMERUS 2V AP/LAT RT, XR FOREARM 2V AP/LAT RT, XR ELBOW 2V AP/LAT RT PATIENT/TECHNOLOGIST PROVIDED HISTORY: Trauma II, fall, laceration to right elbow CLINICAL INFORMATION ( PROVIDED BY ORDERING CLINICIAN) : Trauma COMPARISON: None RESULT: 2 views obtained of the right humerus, elbow and forearm. No acute fracture or dislocation. Joint spaces are maintained. Mild posterior elbow soft tissue swelling. The elbow joint effusion. No radiopaque foreign body. IMPRESSION IMPRESSION: No acute osseous abnormality. Front End Assistant: [facility] Transcribe Date/Time: Jul 31 2024 7:52A Dictated by : RANDOLPH MCCORD DO This examination was interpreted and the report reviewed and electronically signed by: RANDOLPH MCCORD DO on Jul 31 2024 7:57AM EST Dru Lorenzana MD RAD-[facility] Final Re sult * ACTIVATED PARTIAL THROMBOPLASTIN TIME (07/31/2024 7:00 AM EDT) APTT 27.8 23.0 - 32.4 sec 07/31/2024 7:35 AM EDT [facility] Blood BLOOD SPECIMEN / Unknown Venipuncture / Unknown 07/31/2024 7:00 AM EDT 07/31/2024 7:06 AM EDT [facility] - 07/31/2024 7:35 AM EDT Unfractionated Heparin Therapeutic Ranges: Standard Heparin Nomogram: 53 to 78 seconds (anti-Xa level of 0.3 to 0.7 U/ml) Low Dose/ACS Nomogram: 49 to 67 seconds (anti-Xa level of 0.2 to 0.5 U/ml) Stroke Treatment Nomogram: 49 to 67 seconds (anti-Xa level of 0.2 to 0.5 U/ml) Note: The APTT therapeutic range has been determined for the current lot of laboratory APTT reagent in use throughout the [facility]. us Dru Lorenzana MD LABORATORY Final Re sult [facility] [address] * PROTHROMBIN TIME (07/31/2024 7:00 AM EDT) PT Sec 11.7 9.7 - 13.0 sec 07/31/2024 7:35 AM EDT [facility] INR 1.0 0.9 - 1.3 07/31/2024 7:35 AM EDT [facility] Comment: Vitamin K Antagonist (VKA) Therapeutic Range: INR 2 to 3 (Target INR of 2.5) Note: For patients treated with VKA drugs, such as warfarin, the [place] [employer] 2012 Guideline recommends a therapeutic INR range of 2 to 3 (target INR of 2.5). This recommendation includes high-risk patients with antiphospholipid syndrome with previous arterial or venous thromboembolism, current-generation mechanical or bioprosthetic aortic heart valve replacement. Note: Patients with mechanical aortic valve replacement and additional risk factors for thromboembolic events (atrial fibrillation, previous thromboembolism, LV dysfunction, hypercoagulable conditions) or an older generation mechanical AVR (i.e., ball in-Cage) or any mechanical MVR should have a INR therapeutic range of 2.5 to 3.5 (target INR of 3). Connie GH, et al. Chest 2012, 141:7S-47S Robby RA et al. [facility] 2017, 70: 252-289 Blood BLOOD SPECIMEN / Unknown Venipuncture / Unknown 07/31/2024 7:00 AM EDT 07/31/2024 7:06 AM EDT Dru Lorenzana MD LABORATORY Final Re sult Performing Organization Address [facility] Co de Phone Number [facility] [address] [place] [address], [place] * LIPASE (07/31/2024 7:00 AM EDT) [facility] Lipase 29 16 - 61 U/L 07/31/2024 7:32 AM EDT [facility] Blood BLOOD SPECIMEN / Unknown Venipuncture / Unknown 07/31/2024 7:00 AM EDT 07/31/2024 7:06 AM EDT Dru Lorenzana MD LABORATORY Final Re sult Performing Organization Address [facility] de Phone Number [facility] [id number] [place] [address], [place] * TYPE + SCREEN (07/31/2024 7:00 AM EDT) [facility] ABO A 07/31/2024 7:55 AM EDT [facility] Rh(D) Positive 07/31/2024 7:55 AM EDT [facility] Antibody Screen Negative 07/31/2024 7:55 AM EDT [facility] Type and Screen Expiration 08/03/2024 23:59 07/31/2024 7:55 AM EDT [facility] Blood BLOOD SPECIMEN / Unknown Venipuncture / Unknown 07/31/2024 7:00 AM EDT 07/31/2024 7:06 AM EDT Dru Lorenzana MD BLOOD BANK Final Re sult Performing Organization Address [facility] Co de Phone Number [facility] [address] [place] [address], [place] * (ABNORMAL) COMPREHENSIVE METABOLIC PANEL (07/31/2024 7:00 AM EDT) [facility] Protein, Total 6.1(L) 6.3 - 8.0 g/dL 07/31/2024 7:32 AM EDT [facility] Albumin 3.2(L) 3.9 - 4.9 g/dL 07/31/2024 7:32 AM [facility] Calcium, Total 7.5(L) 8.5 - 10.2 mg/dL 07/31/2024 7:32 AM [facility] Bilirubin, Total 0.2 0.2 - 1.3 mg/dL 07/31/2024 7:32 AM [facility] Alkaline Phosphatase 241(H) 38 - 113 U/L 07/31/2024 7:32 AM [facility] AST 21 14 - 40 U/L 07/31/2024 7:32 AM [facility] ALT 16 10 - 54 U/L 07/31/2024 7:32 AM [facility] Glucose 130(H) 74 - 99 mg/dL 07/31/2024 7:32 AM [facility] Comment: The [place] [employer] (ADA) provides guidance for cutoff values for fasting glucose and random glucose. The ADA defines fasting as no caloric intake for at least 8 hours. Fasting plasma glucose results between 100 to 125 mg/dL indicate increased risk for diabetes (prediabetes). Fasting plasma glucose results greater than or equal to 126 mg/dL meet the criteria for diagnosis of diabetes. In the absence of unequivocal hyperglycemia, results should be confirmed by repeat testing. In a patient with classic symptoms of hyperglycemia or hyperglycemic crisis, random plasma glucose results greater than or equal to 200 mg/dL meet the criteria for diagnosis of diabetes. Reference: Standards of Medical Care in Diabetes 2016, [place] [employer]. Diabetes Care. 2016.39(Suppl 1). BUN 3(L) 9 - 24 mg/dL 07/31/2024 7:32 AM [facility] Creatinine 0.59(L) 0.73 - 1.22 mg/dL 07/31/2024 7:32 AM [facility] Sodium 131(L) 136 - 144 mmol/L 07/31/2024 7:32 AM [facility] Potassium 3.9 3.7 - 5.1 mmol/L 07/31/2024 7:32 AM [facility] Chloride 99 98 - 107 mmol/L 07/31/2024 7:32 AM [facility] CO2 22 22 - 30 mmol/L 07/31/2024 7:32 AM [facility] Anion Gap 10 8 - 15 mmol/L 07/31/2024 7:32 AM EDT [facility] Estimated Glomerular Filtration Rate 109 >=60 mL/min/1. 73m 07/31/2024 7:32 AM EDT [facility] Comment:Estimated Glomerular Filtration Rate (eGFR) is calculated using the 2020 CKD-EPI creatinine equation. This equation utilizes serum creatinine, sex, and age as parameters. The creatinine assay has traceable calibration to isotope dilution- mass spectrometry. Refer to KDIGO guidelines for clinical interpretation. In patients with unstable renal function, e.g. those with acute kidney injury, the eGFR may not accurately reflect actual GFR. Blood BLOOD SPECIMEN / Unknown Venipuncture / Unknown 07/31/2024 7:00 AM EDT 07/31/2024 7:06 AM EDT us Dru Lorenzana MD LABORATORY Final Re sult [facility] [address] [place] [address], * (ABNORMAL) COMPLETE BLOOD COUNT (07/31/2024 7:00 AM EDT) WBC 10.29 3.70 - 11.00 k/uL 07/31/2024 7:27 AM EDT [facility] RBC 3.47(L) 4.20 - 6.00 m/uL 07/31/2024 7:27 AM [facility] Hemoglobin 7.7(L) 13.0 - 17.0 g/dL 07/31/2024 7:27 [facility] Hematocrit 25.7(L) 39.0 - 51.0 % 07/31/2024 7:27 AM [facility] [facility] MCV 74.1(L) 80.0 - 100.0 fL 07/31/2024 7:27 AM EDT [facility] MCH 22.2(L) 26.0 - 34.0 pg 07/31/2024 7:[facility] MCHC 30.0(L) 30.5 - 36.0 g/dL 07/31/2024 7:27 [facility] RDW-CV 20.5(H) 11.5 - 15.0 % 07/31/2024 7:27 AM EDT [facility] Platelet Count 358 150 - 400 k/uL 07/31/2024 7:27 AM EDT [facility] MPV 8.4(L) 9.0 - 12.7 fL 07/31/2024 7:27 AM EDT [facility] Absolute nRBC <0.01 <0.01 k/uL 07/31/2024 7:27 AM EDT [facility] Blood BLOOD SPECIMEN / Unknown Venipuncture / Unknown 07/31/2024 7:00 AM EDT 07/31/2024 7:06 AM EDT Dru Lorenzana MD LABORATORY Final Re sult Performing Organization Address [facility] Co de Phone Number [facility] [id number] [place] [address], * ETHANOL/ALCOHOL (07/31/2024 7:00 AM EDT) Ethanol <11 <11 mg/dL 07/31/2024 7:25 AM EDT [facility] Blood BLOOD SPECIMEN / Unknown Venipuncture / Unknown 07/31/2024 7:00 AM EDT 07/31/2024 7:06 AM EDT Dru Lorenzana MD LABORATORY Final Re sult Performing Organization Address [facility] de Phone Number [facility] [id number] [place] [address], * XR PELVIS 1V AP (07/31/2024 6:56 AM EDT) Anatomical Region Laterality Modality Pelvis Radiographic Adriana ging 07/31/2024 6:56 AM EDT Impressions 07/31/2024 7:05 AM EDT IMPRESSION: * No acute chest process. * No acute osseous abnormality of the pelvis. * Endotracheal tube terminates within the mid thoracic trachea. Front End Assistant: ANGE Transcribe Date/Time: Jul 31 2024 7:00A Dictated by : LEEROY ROQUE MD This examination was interpreted and the report reviewed and electronically signed by: LEEROY ROQUE MD on Jul 31 2024 7:03AM EST Narrative 07/31/2024 7:05 AM EDT * * *Final Report* * * DATE OF EXAM: Jul 31 2024 6:56AM FVX 5239 - XR PELVIS 1V AP / PROCEDURE REASON: Pelvic trauma * * * * Physician Interpretation * * * * EXAMINATION: XR PELVIS 1V AP, XR CHEST 1V FRONTAL PORT CLINICAL HISTORY: Pelvic trauma (accession [id number]), Chest pain, nonspecific, Polytrauma, blunt, Chest trauma (accession [id number]) Technique: XR PELVIS 1V AP, XR CHEST 1V FRONTAL PORT -- NOT APPLICABLE with 1 views on 1 images Comparison: Chest radiograph from outside facility from earlier the same day. RESULT: Endotracheal tube terminates within the mid thoracic trachea. Nasogastric tube tip projects over the stomach. No consolidation. No pleural effusion or pneumothorax. Cardiomediastinal silhouette is within normal limits. Metallic cross projects over the right hemithorax. Ahn catheter projects over the urinary bladder. Bones are demineralized. No acute fracture or traumatic malalignment identified. Pelvic surgical clips. Procedure Note Provider, [facility] [place] - 07/31/2024 * * *Final Report* * * DATE OF EXAM: Jul 31 2024 6:56AM FVX 5239 - XR PELVIS 1V AP / PROCEDURE REASON: Pelvic trauma * * * * Physician Interpretation * * * * EXAMINATION: XR PELVIS 1V AP, XR CHEST 1V FRONTAL PORT CLINICAL HISTORY: Pelvic trauma (accession [id number]), Chest pain, nonspecific, Polytrauma, blunt, Chest trauma (accession [id number]) Technique: XR PELVIS 1V AP, XR CHEST 1V FRONTAL PORT -- NOT APPLICABLE with 1 views on 1 images Comparison: Chest radiograph from outside facility from earlier the same day. RESULT: Endotracheal tube terminates within the mid thoracic trachea. Nasogastric tube tip projects over the stomach. No consolidation. No pleural effusion or pneumothorax. Cardiomediastinal silhouette is within normal limits. Metallic cross projects over the right hemithorax. Ahn catheter projects over the urinary bladder. Bones are demineralized. No acute fracture or traumatic malalignment identified. Pelvic surgical clips. IMPRESSION IMPRESSION: * No acute chest process. * No acute osseous abnormality of the pelvis. * Endotracheal tube terminates within the mid thoracic trachea. Front End Assistant: PSCB Transcribe Date/Time: Jul 31 2024 7:00A Dictated by : LEEROY ROQUE MD This examination was interpreted and the report reviewed and electronically signed by: LEEROY ROQUE MD on Jul 31 2024 7:03AM EST Dru Lorenzana MD RAD-PAMA Final Re sult * XR CHEST 1V FRONTAL PORT (07/31/2024 6:56 AM EDT) Anatomical Region Laterality Modality Chest Radiographic Adriana ging 07/31/2024 6:56 AM EDT Impressions 07/31/2024 7:05 AM EDT IMPRESSION: * No acute chest process. * No acute osseous abnormality of the pelvis. * Endotracheal tube terminates within the mid thoracic trachea. Front End Assistant: [facility] Transcribe Date/Time: Jul 31 2024 7:00A Dictated by : LEEROY ROQUE MD This examination was interpreted and the report reviewed and electronically signed by: LEEROY ROQUE MD on Jul 31 2024 7:03AM EST Narrative 07/31/2024 7:05 AM EDT * * *Final Report* * * DATE OF EXAM: Jul 31 2024 6:56AM FVX 5376 - XR CHEST 1V FRONTAL PORT / PROCEDURE REASON: Chest pain, nonspecific * * * * Physician Interpretation * * * * EXAMINATION: XR PELVIS 1V AP, XR CHEST 1V FRONTAL PORT CLINICAL HISTORY: Pelvic trauma (accession [id number]), Chest pain, nonspecific, Polytrauma, blunt, Chest trauma (accession [id number]) Technique: XR PELVIS 1V AP, XR CHEST 1V FRONTAL PORT -- NOT APPLICABLE with 1 views on 1 images Comparison: Chest radiograph from outside facility from earlier the same day. RESULT: Endotracheal tube terminates within the mid thoracic trachea. Nasogastric tube tip projects over the stomach. No consolidation. No pleural effusion or pneumothorax. Cardiomediastinal silhouette is within normal limits. Metallic cross projects over the right hemithorax. Ahn catheter projects over the urinary bladder. Bones are demineralized. No acute fracture or traumatic malalignment identified. Pelvic surgical clips. Procedure Note Provider, [facility] [place] - 07/31/2024 * * *Final Report* * * DATE OF EXAM: Jul 31 2024 6:56AM FVX 5376 - XR CHEST 1V FRONTAL PORT / PROCEDURE REASON: Chest pain, nonspecific * * * * Physician Interpretation * * * * EXAMINATION: XR PELVIS 1V AP, XR CHEST 1V FRONTAL PORT CLINICAL HISTORY: Pelvic trauma (accession [id number]), Chest pain, nonspecific, Polytrauma, blunt, Chest trauma (accession [id number]) Technique: XR PELVIS 1V AP, XR CHEST 1V FRONTAL PORT -- NOT APPLICABLE with 1 views on 1 images Comparison: Chest radiograph from outside facility from earlier the same day. RESULT: Endotracheal tube terminates within the mid thoracic trachea. Nasogastric tube tip projects over the stomach. No consolidation. No pleural effusion or pneumothorax. Cardiomediastinal silhouette is within normal limits. Metallic cross projects over the right hemithorax. Ahn catheter projects over the urinary bladder. Bones are demineralized. No acute fracture or traumatic malalignment identified. Pelvic surgical clips. IMPRESSION IMPRESSION: * No acute chest process. * No acute osseous abnormality of the pelvis. * Endotracheal tube terminates within the mid thoracic trachea. Front End Assistant: PSCB Transcribe Date/Time: Jul 31 2024 7:00A Dictated by : LEEROY ROQUE MD This examination was interpreted and the report reviewed and electronically signed by: LEEROY ROQUE MD on Jul 31 2024 7:03AM EST Dru Lorenzana MD RAD-PAMA Final Re sult * EPIL EEG BEDSIDE/PORTABLE - 20 MINUTE ONLY W/VIDEO (07/31/2024 12:00 AM EDT) 07/31/2024 Narrative NEUROLOGY - 07/31/2024 6:13 PM EDT [facility], Epilepsy Center EPIL EEG Bedside/Portable - 20 minute only w/video [[id number]] Patient name: SARAY CORBIN Start of test: 07/31/2024 16:36 End of test: 07/31/2024 16:59 Duration: 0 hr 23 min Requested By: AMADEO ANAYA Staff Physician: Cheikh Kuo EEG Fellow or Sobieski: Heavenly Cruz History: 63 year old male with a medical history significant for seizures, CVA on plavix, anxiety/depression, COPD, LUZ, HTN, CHF, CAD, HLD, and chronic anemia who presents for mechanical fall with head wound. Patient tripped and fell into marble countertop, lost consciousness and was witnessed having what appeared to be seizure activity. CT Brain - Hemorrhage seen in the left lateral ventricle. Trace layering hemorrhagic in the occipital horns bilaterally. Small amount of hemorrhage in the fourth ventricle. Trace subarachnoid hemorrhage overlying the right temporal lobe (image 20, 2). Small amount of subarachnoid hemorrhage overlying the tentorium on the left. EEG was ordered for: Unspecified convulsions Etiology: Intracranial Hemorrhage(ICH) Conditions: Lethargy Awake Classifications: Normal (10-20 Scalp Electrodes, CT-Compatible Electrodes, Anterior Temporal Electrodes, Lethargy, Awake) Interictal: Normal, Impression: This EEG is within normal limits. No epileptiform discharges or EEG seizures were seen during this recording. Seizure monitoring is needed in order to develop or modify treatment. Diagnosis: Primary: R56.9 Unspecified convulsions Interpreted and electronically signed by Cheikh Kuo M.D. Date of signin07/31/2024 18:13 Amadeo Anaya AUTO CLEANER.[facility] Final Result NEUROLOGY [address] [place] [address], * EPIL EEG BEM - CONTINUOUS BEDSIDE W/VIDEO INCLUDES PORTABLE EEG READ (07/31/2024 12:00 AM EDT) 07/31/2024 Narrative NEUROLOGY - 08/01/2024 11:42 AM EDT [facility], Epilepsy Center EPIL EEG BEM - Continuous bedside w/video includes portable EEG read [[id number]] Patient name: SARAY CORBIN Date of test: 07/31/2024 Requested By: AMADEO ANAYA Staff Physician: Anirudh Castellanos M.D. EEG Fellow or Sobieski: Antonio Garza History: 63 year old male with a medical history significant for seizures, CVA on plavix, anxiety/depression, COPD, LUZ, HTN, CHF, CAD, HLD, and chronic anemia who presents for mechanical fall with head wound. Patient tripped and fell into marble countertop, lost consciousness and was witnessed having what appeared to be seizure activity. CT Brain - Hemorrhage seen in the left lateral ventricle. Trace layering hemorrhagic in the occipital horns bilaterally. Small amount of hemorrhage in the fourth ventricle. Trace subarachnoid hemorrhage overlying the right temporal lobe (image 20, 2). Small amount of subarachnoid hemorrhage overlying the tentorium on the left. EEG was ordered for: Unspecified convulsions Etiology: Epilepsy NOS Conditions: Lethargy Awake Diagnosis: Primary: R56.9 Unspecified convulsions BEM Read Period: 07/31/2024 05:01:00 PM - 08/01/2024 09:06:00 AM Read duration: 965 minutes Classifications: Abnormal II (10-20 Scal[address] Electrodes, [address]-Compatible Electrodes, Anterior Temporal Electrodes, Lethargy, Awake) Interictal: Intermittent Slow, Regional, Left Fronto-temporal Impression: Continuous Video-EEG was reviewed from 1701 on 07/31/2024 to 0906 on 08/01/2024 and is suggestive of a mild cortical dysfunction in the left fronto-temporal region. No epileptiform discharges or EEG seizures were recorded. Interpreted and electronically signed by Anirudh Castellanos M.D. Date of signin08/01/2024 11:42 us Amadeo Anaya APRN.[facility] Final Result NEUROLOGY [address] [place] [address], documented in this encounter Visit Diagnoses Diagnosis Subarachnoid hemorrhage (HCC)- Primary Subarachnoid hemorrhage Subarachnoid hemorrhage (HCC) Subarachnoid hemorrhage Closed head injury, initial encounter Contusion of right elbow, initial encounter Nicotine use disorder Tobacco use disorder Anemia, unspecified type Stress-induced cardiomyopathy Takotsubo syndrome Pharyngeal dysphagia Dysphagia, pharyngeal phase History of seizures Personal history of other disorders of nervous system and sense organs Anxiety and depression Dysthymic disorder Diabetes mellitus type 2, controlled, without complications (HCC) Type II or unspecified type diabetes mellitus without mention of complication, not stated as uncontrolled Anticoagulated Long-term (current) use of anticoagulants On mechanically assisted ventilation (HCC) Stroke (HCC) Unspecified cerebral artery occlusion with cerebral infarction LUZ (obstructive sleep apnea) Obstructive sleep apnea (adult) (pediatric) HLD (hyperlipidemia) Other and unspecified hyperlipidemia Closed fracture of multiple ribs of right side Closed fracture of body of sternum Closed fracture of sternum Syncope and collapse Alcohol abuse Alcohol abuse, unspecified Severe protein-calorie malnutrition (HCC) Other severe protein-calorie malnutrition Refeeding syndrome Vocal cord dysfunction Other diseases of vocal cords Hyponatremia Hyposmolality and/or hyponatremia Traumatic encephalopathy Postconcussion syndrome Cystitis Cystitis, unspecified * Assessment & Plan Note - Raiza Bates APRN.CNP - 08/14/2024 10:55 AM EDT Associated Problem(s): Pharyngeal dysphagia - SANDING MACHINE OPERATOR OR TENDER eval: MBS Monday - Corpak placed 08/03 - Nutrition consult - NPO - Continue home PPI - MBSS 08/05- complete- vocal cord dysfunction - ENT consult Dr Euceda discussed via text- will set up out pt follow up - PEG planned possibly for 08/13 no peg . keep corpak * Assessment & Plan Note - Raiza Bates APRN.CNP - 08/14/2024 10:55 AM EDT Associated Problem(s): Anticoagulated - No current AC use - Only on plavix- hold till follow up - Given TXA at OSH - Continue to monitor platelets * Assessment & Plan Note - Raiza Bates APRN.CNP - 08/14/2024 10:55 AM EDT Associated Problem(s): Refeeding syndrome - Daily labs - Replete electrolytes as needed - Slow TF advancement, will keep at 20ml/hr today and advance in AM. 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 - Hold home Plavix * Assessment & Plan Note - Raiza Bates APRN.CNP - 08/14/2024 9:56 AM EDT Associated Problem(s): LUZ (obstructive sleep apnea) - Does not wear home cpap - May need to initiate once extubated - Tele * Assessment & Plan Note - Raiza Bates APRN.CNP - 08/14/2024 9:56 AM EDT Associated Problem(s): HLD (hyperlipidemia) - Continue home statin * Assessment & Plan Note - Raiza Bates APRN.CNP - 08/14/2024 9:56 AM EDT Associated Problem(s): Closed fracture of multiple ribs of right side - Subacute 9-12th posterior rib fractures - No pain on exam - Stable RA - MM pain control - Aggressive IS * Assessment & Plan Note - Raiza Bates APRN.CNP - 08/14/2024 9:56 AM EDT Associated Problem(s): Closed fracture of body of sternum - Subacute in nature - Echo: LV moderately dilated with Lvef 55%, left atrial cavity severely dilated, mild MVR, and mild pHTN. Compared to prior exam from 05/2022 LV fx improved. - Tele * Assessment & Plan Note - Raiza Bates APRN.CNP - 08/14/2024 9:56 AM EDT Associated Problem(s): Syncope and collapse - Unclear etiology of fall - Reports multiple falls and dizziness at home per - Echo: LV moderately dilated with Lvef 55%, left atrial cavity severely dilated, mild MVR, and mild pHTN. Compared to prior exam from 05/2022 LV fx improved. - Carotids: Bilateral carotid artery duplex with approximately 0-29% stenosis bilaterally. - Tele * Assessment & Plan Note - Raiza Bates APRN.CNP - 08/14/2024 9:56 AM EDT Associated Problem(s): Alcohol abuse -Patient reported to be heavy drinker per family -Started on phenobarb taper 08/02, now completed -CIWA * Assessment & Plan Note - Raiza Bates APRN.CNP - 08/14/2024 9:56 AM EDT Associated Problem(s): Severe protein-calorie malnutrition (HCC) - Nutrition consult * Assessment & Plan Note - Raiza Bates APRN.CNP - 08/14/2024 9:56 AM EDT Associated Problem(s): Vocal cord dysfunction - ENT consult - Spoke with Dr Euceda via text - He is to send Message to ENT scheduling team for out pt follow up * Assessment & Plan Note - Raiza Bates APRN.CNP - 08/14/2024 9:56 AM EDT Associated Problem(s): Hyponatremia - Nephrology following. 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 FWF 50cc Q8h, continue salt tabs, no need for fluid restriction as not taking PO - Daily labs - Stabilized * Assessment & Plan Note - Raiza Bates APRN.CNP - 08/14/2024 9:56 AM EDT Associated Problem(s): Cystitis - UA with moderate bacteria, culture with mixed microbiota - Ceftriaxone for 5 days (finish 08/13) * Assessment & Plan Note - Raiza Bates APRN.CNP - 08/14/2024 9:56 AM EDT Associated Problem(s): Subarachnoid hemorrhage (HCC) - Neurosurgery consulted - Non operative management - Neuro checks Q 4 - Repeat CT brain: Stable - MRI 08/01: Small focus of diffusion restriction posterior LEFT aspect of the patsy - BEM DC /30 as no seizure activity noted. Moderate diffuse encephalopathy - 20 min BEM 08/06: negative - SBP goal: < 140 - DVT ppx: SQH - 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 - Seizure prophylaxis: keppra - PT/OT: [facility] vs SNF - MM pain control - 08/08 repeat CTH stable * Assessment & Plan Note - Raiza Bates APRN.CNP - 08/14/2024 9:56 AM EDT Associated Problem(s): Stress-induced cardiomyopathy - Most recent EF ~ 43% - Continue home entresto, aldactone and metop - Repeat echo: LV moderately dilated with Lvef 55%, left atrial cavity severely dilated, mild MVR, and mild pHTN. Compared to prior exam from 05/2022 LV fx improved. * Assessment & Plan Note - Raiza Bates APRN.CNP - 08/14/2024 9:56 AM EDT Associated Problem(s): History of seizures - No home AEDs - Will continue keppra 1g BID - BEM DC /30 as no seizure activity noted. Moderate diffuse encephalopathy * Assessment & Plan Note - Raiza Bates APRN.CNP - 08/14/2024 9:56 AM EDT Associated Problem(s): Anxiety and depression - Holding home lexapro and seroquel - Initially held d/t lack of enteral access, now held d/t prolonged qtc - Repeat EKG prn - Resume seroquel - Holding lexapro d/t QTC * Assessment & Plan Note - Raiza Bates APRN.CNP - 08/14/2024 9:56 AM EDT Associated Problem(s): Diabetes mellitus type 2, controlled, without complications (HCC) - Hold Farxiga - SSI - Accu checks AC/HS * Assessment & Plan Note - Amadeo Anaya APRN.CNP - 08/13/2024 10:05 AM EDT Associated Problem(s): Pharyngeal dysphagia - SANDING MACHINE OPERATOR OR TENDER eval: MBS Monday - Corpak placed 08/03 - Nutrition consult - NPO - Continue home PPI - MBSS 08/05- complete- vocal cord dysfunction - ENT consult Dr Euceda discussed via text- will set up out pt follow up - PEG planned possibly for 08/13 * Assessment & Plan Note - Amadeo Anaya APRN.CNP - 08/13/2024 10:05 AM EDT Associated Problem(s): Stress-induced cardiomyopathy - Most recent EF ~ 43% - Continue home entresto, aldactone and metop - Repeat echo: LV moderately dilated with Lvef 55%, left atrial cavity severely dilated, mild MVR, and mild pHTN. Compared to prior exam from 05/2022 LV fx improved. * Assessment & Plan Note - Amadeo Anaya APRN.CNP - 08/13/2024 10:05 AM EDT Associated Problem(s): Anxiety and depression - Holding home lexapro and seroquel - Initially held d/t lack of enteral access, now held d/t prolonged qtc - Repeat EKG prn - Resume seroquel - Holding lexapro d/t QTC * Assessment & Plan Note - Amadeo Anaya APRN.CNP - 08/13/2024 10:05 AM EDT Associated Problem(s): Closed fracture of multiple ribs of right side - Subacute 9-12th posterior rib fractures - No pain on exam - Stable RA - MM pain control - Aggressive IS * Assessment & Plan Note - Amadeo Anaya APRN.KENO WRITER - 08/13/2024 10:05 AM EDT Associated Problem(s): Hyponatremia - Nephrology following. 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 FWF 50cc Q8h, continue salt tabs, no need for fluid restriction as not taking PO - Daily labs - Stabilized * Assessment & Plan Note - Amadeo Anaya APRN.KENO WRITER - 08/13/2024 10:05 AM EDT Associated Problem(s): Cystitis - UA with moderate bacteria, culture with mixed microbiota - Ceftriaxone for 5 days (finish 08/13) * Assessment & Plan Note - Amadeo Anaya APRN.KENO WRITER - 08/13/2024 7:24 AM EDT Associated Problem(s): Subarachnoid hemorrhage (HCC) - Neurosurgery consulted - Non operative management - Neuro checks Q 4 - Repeat CT brain: Stable - MRI 08/01: Small focus of diffusion restriction posterior LEFT aspect of the patsy - BEM DC 08/02 as no seizure activity noted. Moderate diffuse encephalopathy - 20 min BEM 08/06: negative - SBP goal: < 140 - DVT ppx: SQH - 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 - Seizure prophylaxis: keppra - PT/OT: [facility] vs SNF - MM pain control - 08/08 repeat CTH stable * Assessment & Plan Note - Amadeo Anaya APRN.CNP - 08/13/2024 7:24 AM EDT Associated Problem(s): History of seizures - No home AEDs - Will continue keppra 1g BID - BEM DC 08/02 as no seizure activity noted. 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 - Hold home Plavix * Assessment & Plan Note - Amadeo Anaya APRN.CNP - 08/13/2024 7:24 AM EDT Associated Problem(s): LUZ (obstructive sleep apnea) - Does not wear home cpap - May need to initiate once extubated - Tele * Assessment & Plan Note - Amadeo Anaya APRN.CNP - 08/13/2024 7:24 AM EDT Associated Problem(s): HLD (hyperlipidemia) - Continue home statin * Assessment & Plan Note - Amadeo Anaya APRN.CNP - 08/13/2024 7:24 AM EDT Associated Problem(s): Closed fracture of body of sternum - Subacute in nature - Echo: LV moderately dilated with Lvef 55%, left atrial cavity severely dilated, mild MVR, and mild pHTN. Compared to prior exam from 05/2022 LV fx improved. - Tele * Assessment & Plan Note - Amadeo Anaya APRN.CNP - 08/13/2024 7:24 AM EDT Associated Problem(s): Syncope and collapse - Unclear etiology of fall - Reports multiple falls and dizziness at home per - Echo: LV moderately dilated with Lvef 55%, left atrial cavity severely dilated, mild MVR, and mild pHTN. Compared to prior exam from 05/2022 LV fx improved. - Carotids: Bilateral carotid artery duplex with approximately 0-29% stenosis bilaterally. - Tele * Assessment & Plan Note - Amadeo Anaya APRN.CNP - 08/13/2024 7:24 AM EDT Associated Problem(s): Alcohol abuse -Patient reported to be heavy drinker per family -Started on phenobarb taper 08/02, now completed -CIWA * Assessment & Plan Note - Amadeo Anaya APRN.CNP - 08/13/2024 7:24 AM EDT Associated Problem(s): Severe protein-calorie malnutrition (HCC) - Nutrition consult * Assessment & Plan Note - Amadeo Anaya APRN.CNP - 08/13/2024 7:24 AM EDT Associated Problem(s): Refeeding syndrome - Daily labs - Replete electrolytes as needed - Slow TF advancement, will keep at 20ml/hr today and advance in AM. Goal is 50ml/hr - PEG planned for 08/13 * Assessment & Plan Note - Amadeo Anaya APRN.CNP - 08/13/2024 7:24 AM EDT Associated Problem(s): Vocal cord dysfunction - ENT consult - Spoke with Dr Euceda via text - He is to send Message to ENT scheduling team for out pt follow up * Assessment & Plan Note - Jenna Vazquez APRN.CNP - 08/12/2024 12:41 PM EDT Associated Problem(s): Pharyngeal dysphagia - SANDING MACHINE OPERATOR OR TENDER eval: MBS Monday - Corpak placed 08/03 - Nutrition consult - NPO - Continue home PPI MBSS planned for 08/05- complete- vocal cord dysfunction - ENT consult Dr Euceda discussed via text- will set up out pt follow up - PEG planned for 08/13 * Assessment & Plan Note - Jenna Vazquez APRN.CNP - 08/12/2024 12:41 PM EDT Associated Problem(s): Refeeding syndrome - Daily labs - Replete electrolytes as needed - Slow TF advancement, will keep at 20ml/hr today and advance in AM. Goal is 50ml/hr - PEG planned for 08/13 * Assessment & Plan Note - Jenna Vazquez APRN.CNP - 08/12/2024 12:41 PM EDT Associated Problem(s): Hyponatremia - Nephrology following. 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 FWF 50cc Q8h, continue salt tabs, no need for fluid restriction as not taking PO - Daily labs - Stablilizing * Assessment & Plan Note - Jenna Vazquez APRN.CNP - 08/12/2024 8:59 AM EDT Associated Problem(s): Stroke (HCC) - 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 - Hold home Plavix * Assessment & Plan Note - Jenna Vazquez APRN.CNP - 08/12/2024 8:59 AM EDT Associated Problem(s): LUZ (obstructive sleep apnea) - Does not wear home cpap - May need to initiate once extubated - Tele * Assessment & Plan Note - Jenna Vazquez APRN.CNP - 08/12/2024 8:59 AM EDT Associated Problem(s): HLD (hyperlipidemia) - Continue home statin * Assessment & Plan Note - Jenna Vazquez APRN.CNP - 08/12/2024 8:59 AM EDT Associated Problem(s): Closed fracture of multiple ribs of right side - Subacute 9-12th posterior rib fractures - No pain on exam this AM - Stable RA - MM pain control - Aggressive IS * Assessment & Plan Note - Jenna Vazquez APRN.CNP - 08/12/2024 8:59 AM EDT Associated Problem(s): Closed fracture of body of sternum - Subacute in nature - Echo: LV moderately dilated with Lvef 55%, left atrial cavity severely dilated, mild MVR, and mild pHTN. Compared to prior exam from 05/2022 LV fx improved. - Tele * Assessment & Plan Note - Jenna Vazquez APRN.CNP - 08/12/2024 8:59 AM EDT Associated Problem(s): Syncope and collapse - Unclear etiology of fall - Reports multiple falls and dizziness at home per - Echo: LV moderately dilated with Lvef 55%, left atrial cavity severely dilated, mild MVR, and mild pHTN. Compared to prior exam from 05/2022 LV fx improved. - Carotids: Bilateral carotid artery duplex with approximately 0-29% stenosis bilaterally. - Tele * Assessment & Plan Note - Jenna Vazquez APRN.CNP - 08/12/2024 8:59 AM EDT Associated Problem(s): Alcohol abuse -Patient reported to be heavy drinker per family -Started on phenobarb taper 08/02, now completed -CIWA * Assessment & Plan Note - Jenna Vazquez APRN.CNP - 08/12/2024 8:59 AM EDT Associated Problem(s): Severe protein-calorie malnutrition (HCC) - Nutrition consult * Assessment & Plan Note - Jenna Vazquez APRN.CNP - 08/12/2024 8:59 AM EDT Associated Problem(s): Vocal cord dysfunction - ENT consult - Spoke with Dr Euceda via text - He is to send Message to ENT scheduling team for out pt follow up * Assessment & Plan Note - Jenna Vazquez APRN.CNP - 08/12/2024 8:59 AM EDT Associated Problem(s): Traumatic encephalopathy Evidence on 20min BEM UA with moderate bacteria, culture in process - Adding ceftriaxone pending urine culture 08/10 Mixed microbiota- cont Ceftriaxone * Assessment & Plan Note - Jenna Vazquez APRN.CNP - 08/12/2024 8:58 AM EDT Associated Problem(s): Subarachnoid hemorrhage (HCC) - Neurosurgery consulted - Non operative management - Neuro checks Q 4 - Repeat CT brain: Stable - MRI 08/01: Small focus of diffusion restriction posterior LEFT aspect of the patsy - BEM DC 08/02 as no seizure activity noted. Moderate diffuse encephalopathy - 20 min BEM 08/06: negative - SBP goal: < 140 - DVT ppx: SQH - 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 - Seizure prophylaxis: keppra - PT/OT: [facility] vs SNF - MM pain control - 08/08 repeat CTH stable * Assessment & Plan Note - Jenna Vazquez APRN.CNP - 08/12/2024 8:58 AM EDT Associated Problem(s): Stress-induced cardiomyopathy - Most recent EF ~ 43% - Holding home entresto, aldactone and metop- resumed 08/05 - Repeat echo: LV moderately dilated with Lvef 55%, left atrial cavity severely dilated, mild MVR, and mild pHTN. Compared to prior exam from 05/2022 LV fx improved. 08/06- hold Aldactone due to hyponatremia today until seen by nephrology 08/10- resume Aldactone Friday 08/11 * Assessment & Plan Note - Jenna Vazquez APRN.CNP - 08/12/2024 8:58 AM EDT Associated Problem(s): History of seizures - No home AEDs - Will continue keppra 1g BID - BEM DC 08/02 as no seizure activity noted. Moderate diffuse encephalopathy * Assessment & Plan Note - Jenna Vazquez APRN.CNP - 08/12/2024 8:58 AM EDT Associated Problem(s): Anxiety and depression - Holding home lexapro and seroquel - Initially held d/t lack of enteral access, now held d/t prolonged qtc - Repeat EKG ordered for AM 08/05- EKG- complete , no prolonged QT- 379 -May resume Lexapro and seroquel today 08/08: Escitalopram discontinued. Receiving Seroquel, QTc 487. * Assessment & Plan Note - Jenna Vazquez APRN.CNP - 08/12/2024 8:58 AM EDT Associated Problem(s): Diabetes mellitus type 2, controlled, without complications (HCC) - Hold [facility] - [facility] - Accu checks AC/HS * Assessment & Plan Note - Jenna Vazquez APRN.CNP - 08/12/2024 8:58 AM EDT Associated Problem(s): Anticoagulated - No current AC use - Only on plavix - Given TXA at OSH - Continue to monitor platelets * Assessment & Plan Note - Jenna Vazquez APRN.CNP - 08/12/2024 8:58 AM EDT Associated Problem(s): On mechanically assisted ventilation (HCC) - Intubated for airway protection - Extubated 08/01 - Close respiratory monitoring * Assessment & Plan Note - Raiza Bates APRN.CNP - 08/11/2024 11:17 AM EDT Associated Problem(s): Subarachnoid hemorrhage (HCC) - Neurosurgery consulted - Non operative management - Neuro checks Q 4 - Repeat CT brain: Stable - MRI 08/01: Small focus of diffusion restriction posterior LEFT aspect of the patsy - BEM DC 08/02 as no seizure activity noted. Moderate diffuse encephalopathy - 20 min BEM 08/06: negative - SBP goal: < 140 - DVT ppx: SQH - 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 - Seizure prophylaxis: keppra - PT/OT: AR vs SNF - MM pain control - 08/08 repeat CTH stable * Assessment & Plan Note - Raiza Bates APRN.CNP - 08/11/2024 11:17 AM EDT Associated Problem(s): Pharyngeal dysphagia - SANDING MACHINE OPERATOR OR TENDER eval: MBS Monday - Corpak placed 08/03 - Nutrition consult - NPO - Continue home PPI MBSS planned for 08/05- complete- vocal cord dysfunction - ENT consult Dr Euceda discussed via text- will set up out pt follow up * Assessment & Plan Note - Raiza Bates APRN.CNP - 08/11/2024 11:17 AM EDT Associated Problem(s): Stress-induced cardiomyopathy - Most recent EF ~ 43% - Holding home entresto, aldactone and metop- resumed 08/05 - Repeat echo: LV moderately dilated with Lvef 55%, left atrial cavity severely dilated, mild MVR, and mild pHTN. Compared to prior exam from 05/2022 LV fx improved. 08/06- hold Aldactone due to hyponatremia today until seen by nephrology 08/10- resume Aldactone Friday 08/11 * Assessment & Plan Note - Raiza Bates APRN.CNP - 08/11/2024 11:17 AM EDT Associated Problem(s): History of seizures - No home AEDs - Will continue keppra 1g BID - BEM DC 08/02 as no seizure activity noted. Moderate diffuse encephalopathy * Assessment & Plan Note - Raiza Bates APRN.CNP - 08/11/2024 11:17 AM EDT Associated Problem(s): Anxiety and depression - Holding home lexapro and seroquel - Initially held d/t lack of enteral access, now held d/t prolonged qtc - Repeat EKG ordered for AM 08/05- EKG- complete , no prolonged QT- 379 -May resume Lexapro and seroquel today 08/08: Escitalopram discontinued. Receiving Seroquel, QTc 487. * Assessment & Plan Note - Raiza Bates APRN.CNP - 08/11/2024 11:17 AM EDT Associated Problem(s): Diabetes mellitus type 2, controlled, without complications (HCC) - Hold [facility] - [facility] - Accu checks AC/HS * Assessment & Plan Note - Riaza Bates APRN.CNP - 08/11/2024 11:17 AM EDT Associated Problem(s): Anticoagulated - No current AC use - Only on plavix - Given TXA at OSH - Continue to monitor platelets * Assessment & Plan Note - Raiza Bates APRN.CNP - 08/11/2024 11:17 AM EDT Associated Problem(s): On mechanically assisted ventilation (HCC) - Intubated for airway protection - Extubated 08/01 - Close respiratory monitoring * Assessment & Plan Note - Raiza Bates APRN.CNP - 08/11/2024 11:17 AM EDT Associated Problem(s): Stroke (HCC) - 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 - Hold home Plavix * Assessment & Plan Note - Raiza Bates APRN.CNP - 08/11/2024 11:17 AM EDT Associated Problem(s): LUZ (obstructive sleep apnea) - Does not wear home cpap - May need to initiate once extubated - Tele * Assessment & Plan Note - Raiza Bates APRN.CNP - 08/11/2024 11:17 AM EDT Associated Problem(s): HLD (hyperlipidemia) - Continue home statin * Assessment & Plan Note - Raiza Bates APRN.CNP - 08/11/2024 11:17 AM EDT Associated Problem(s): Closed fracture of multiple ribs of right side - Subacute 9-12th posterior rib fractures - No pain on exam this AM - Stable RA - MM pain control - Aggressive IS * Assessment & Plan Note - Raiza Bates APRN.CNP - 08/11/2024 11:17 AM EDT Associated Problem(s): Closed fracture of body of sternum - Subacute in nature - Echo: LV moderately dilated with Lvef 55%, left atrial cavity severely dilated, mild MVR, and mild pHTN. Compared to prior exam from 05/2022 LV fx improved. - Tele * Assessment & Plan Note - Raiza Bates APRN.CNP - 08/11/2024 11:17 AM EDT Associated Problem(s): Syncope and collapse - Unclear etiology of fall - Reports multiple falls and dizziness at home per - Echo: LV moderately dilated with Lvef 55%, left atrial cavity severely dilated, mild MVR, and mild pHTN. Compared to prior exam from 05/2022 LV fx improved. - Carotids: Bilateral carotid artery duplex with approximately 0-29% stenosis bilaterally. - Tele * Assessment & Plan Note - Raiza Bates APRN.CNP - 08/11/2024 11:17 AM EDT Associated Problem(s): Alcohol abuse -Patient reported to be heavy drinker per family -Started on phenobarb taper 08/02, now completed -CIWA * Assessment & Plan Note - Raiza Bates APRN.CNP - 08/11/2024 11:17 AM EDT Associated Problem(s): Severe protein-calorie malnutrition (HCC) - Nutrition consult * Assessment & Plan Note - Raiza Bates APRN.CNP - 08/11/2024 11:17 AM EDT Associated Problem(s): Refeeding syndrome - Daily labs - Replete electrolytes as needed - Slow TF advancement, will keep at 20ml/hr today and advance in AM. Goal is 50ml/hr * Assessment & Plan Note - Raiza Bates APRN.CNP - 08/11/2024 11:17 AM EDT Associated Problem(s): Vocal cord dysfunction - ENT consult - Spoke with Dr Euceda via text - He is to send Message to ENT scheduling team for out pt follow up * Assessment & Plan Note - Raiza Bates APRN.CNP - 08/11/2024 11:17 AM EDT Associated Problem(s): Hyponatremia - Nephrology following. 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 FWF 50cc Q8h, continue salt tabs, no need for fluid restriction as not taking PO - Daily labs 08/09: Improving, NA 132 today 08/10 Na improved 134 * Assessment & Plan Note - Raiza Bates APRN.CNP - 08/11/2024 11:17 AM EDT Associated Problem(s): Traumatic encephalopathy Evidence on 20min BEM UA with moderate bacteria, culture in process - Adding ceftriaxone pending urine culture 08/10 Mixed microbiota- cont Ceftriaxone * Assessment & Plan Note - Raiza Bates APRN.CNP - 08/10/2024 9:47 AM EDT Associated Problem(s): Subarachnoid hemorrhage (HCC) - Neurosurgery consulted - Non operative management - Neuro checks Q 4 - Repeat CT brain: Stable - MRI 08/01: Small focus of diffusion restriction posterior LEFT aspect of the patsy - BEM DC 08/02 as no seizure activity noted. Moderate diffuse encephalopathy - 20 min BEM 08/06: negative - SBP goal: < 140 - DVT ppx: SQH - 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 - Seizure prophylaxis: keppra - PT/OT: [facility] vs SNF - MM pain control - 6/5 repeat CTH stable * Assessment & Plan Note - Raiza Bates APRN.CNP - 08/10/2024 9:47 AM EDT Associated Problem(s): Pharyngeal dysphagia - SANDING MACHINE OPERATOR OR TENDER eval: MBS Monday - Corpak placed 08/03 - Nutrition consult - NPO - Continue home PPI MBSS planned for 08/05- complete- vocal cord dysfunction - ENT consult Dr Euceda discussed via text- will set up out pt follow up * Assessment & Plan Note - Raiza Bates APRN.MODESTA - 08/10/2024 9:47 AM EDT Associated Problem(s): Stress-induced cardiomyopathy - Most recent EF ~ 43% - Holding home entresto, aldactone and metop- resumed 08/05 - Repeat echo: LV moderately dilated with Lvef 55%, left atrial cavity severely dilated, mild MVR, and mild pHTN. Compared to prior exam from 05/2022 LV fx improved. 08/06- hold Aldactone due to hyponatremia today until seen by nephrology 08/10- resume Aldactone Friday 08/11 * Assessment & Plan Note - Raiza Bates APRN.CNP - 08/10/2024 9:47 AM EDT Associated Problem(s): History of seizures - No home AEDs - Will continue keppra 1g BID - BEM DC 08/02 as no seizure activity noted. Moderate diffuse encephalopathy * Assessment & Plan Note - Raiza Bates APRN.CNP - 08/10/2024 9:47 AM EDT Associated Problem(s): Anxiety and depression - Holding home lexapro and seroquel - Initially held d/t lack of enteral access, now held d/t prolonged qtc - Repeat EKG ordered for AM 08/05- EKG- complete , no prolonged QT- 379 -May resume Lexapro and seroquel today 08/08: Escitalopram discontinued. Receiving Seroquel, QTc 487. * Assessment & Plan Note - Raiza Bates APRN.CNP - 08/10/2024 9:47 AM EDT Associated Problem(s): Diabetes mellitus type 2, controlled, without complications (HCC) - Hold [facility] - Accu checks AC/HS * Assessment & Plan Note - Raiza Bates APRN.CNP - 08/10/2024 9:47 AM EDT Associated Problem(s): Anticoagulated - No current AC use - Only on plavix - Given TXA at OSH - Continue to monitor platelets * Assessment & Plan Note - Raiza Bates APRN.CNP - 08/10/2024 9:47 AM EDT Associated Problem(s): On mechanically assisted ventilation (HCC) - Intubated for airway protection - Extubated 08/01 - Close respiratory monitoring * Assessment & Plan Note - Raiza Bates APRN.CNP - 08/10/2024 9:47 AM EDT Associated Problem(s): Stroke (HCC) - 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 - Hold home Plavix * Assessment & Plan Note - Raiza Bates APRN.CNP - 08/10/2024 9:47 AM EDT Associated Problem(s): LUZ (obstructive sleep apnea) - Does not wear home cpap - May need to initiate once extubated - Tele * Assessment & Plan Note - Raiza Bates APRN.CNP - 08/10/2024 9:47 AM EDT Associated Problem(s): HLD (hyperlipidemia) - Continue home statin * Assessment & Plan Note - Raiza Bates APRN.CNP - 08/10/2024 9:47 AM EDT Associated Problem(s): Closed fracture of multiple ribs of right side - Subacute 9-12th posterior rib fractures - No pain on exam this AM - Stable RA - MM pain control - Aggressive IS * Assessment & Plan Note - Raiza Bates APRN.CNP - 08/10/2024 9:47 AM EDT Associated Problem(s): Closed fracture of body of sternum - Subacute in nature - Echo: LV moderately dilated with Lvef 55%, left atrial cavity severely dilated, mild MVR, and mild pHTN. Compared to prior exam from 05/2022 LV fx improved. - Tele * Assessment & Plan Note - Raiza Bates APRN.CNP - 08/10/2024 9:47 AM EDT Associated Problem(s): Syncope and collapse - Unclear etiology of fall - Reports multiple falls and dizziness at home per - Echo: LV moderately dilated with Lvef 55%, left atrial cavity severely dilated, mild MVR, and mild pHTN. Compared to prior exam from 05/2022 LV fx improved. - Carotids: Bilateral carotid artery duplex with approximately 0-29% stenosis bilaterally. - Tele * Assessment & Plan Note - Raiza Bates APRN.CNP - 08/10/2024 9:47 AM EDT Associated Problem(s): Alcohol abuse -Patient reported to be heavy drinker per family -Started on phenobarb taper 08/02, now completed -CIWA * Assessment & Plan Note - Raiza Bates APRN.CNP - 08/10/2024 9:47 AM EDT Associated Problem(s): Severe protein-calorie malnutrition (HCC) - Nutrition consult * Assessment & Plan Note - Raiza Bates APRN.CNP - 08/10/2024 9:47 AM EDT Associated Problem(s): Refeeding syndrome - Daily labs - Replete electrolytes as needed - Slow TF advancement, will keep at 20ml/hr today and advance in AM. Goal is 50ml/hr * Assessment & Plan Note - Raiza Bates APRN.CNP - 08/10/2024 9:47 AM EDT Associated Problem(s): Vocal cord dysfunction - ENT consult - Spoke with Dr Euceda via text - He is to send Message to ENT scheduling team for out pt follow up * Assessment & Plan Note - Raiza Bates APRN.CNP - 08/10/2024 9:47 AM EDT Associated Problem(s): Hyponatremia - Nephrology following. 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 FWF 50cc Q8h, continue salt tabs, no need for fluid restriction as not taking PO - Daily labs 08/09: Improving, NA 132 today 08/10 Na improved 134 * Assessment & Plan Note - Raiza Bates APRN.CNP - 08/10/2024 9:47 AM EDT Associated Problem(s): Traumatic encephalopathy Evidence on 20min BEM UA with moderate bacteria, culture in process - Adding ceftriaxone pending urine culture 08/10 Mixed microbiota- cont Ceftriaxone * Assessment & Plan Note - Jenna Vazquez APRN.CNP - 08/09/2024 12:34 PM EDT Associated Problem(s): Hyponatremia - Nephrology following. 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 FWF 50cc Q8h, continue salt tabs, no need for fluid restriction as not taking PO - Daily labs 08/09: Improving, NA 132 today * Assessment & Plan Note - Jenan Vazquez APRN.CNP - 08/09/2024 12:34 PM EDT Associated Problem(s): Traumatic encephalopathy Evidence on 20min BEM UA with moderate bacteria, culture in process - Adding ceftriaxone pending urine culture * Assessment & Plan Note - Jenna Vazquez APRN.CNP - 08/09/2024 9:50 AM EDT Associated Problem(s): Subarachnoid hemorrhage (HCC) - Neurosurgery consulted - Non operative management - Neuro checks Q 4 - Repeat CT brain: Stable - MRI 08/01: Small focus of diffusion restriction posterior LEFT aspect of the patsy - BEM DC 08/02 as no seizure activity noted. Moderate diffuse encephalopathy - 20 min BEM 08/06: negative - SBP goal: < 140 - DVT ppx: SQH - 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 - Seizure prophylaxis: keppra - PT/OT: AR - MM pain control - 08/08 repeat CTH stable * Assessment & Plan Note - Jenna Vazquez APRN.CNP - 08/09/2024 9:50 AM EDT Associated Problem(s): Pharyngeal dysphagia - SANDING MACHINE OPERATOR OR TENDER eval: MBS Monday - Corpak placed 08/03 - Nutrition consult - NPO - Continue home PPI MBSS planned for 08/05- complete- vocal cord dysfunction - ENT consult Dr Euceda discussed via text- will set up out pt follow up * Assessment & Plan Note - Jenna Vazquez APRN.CNP - 08/09/2024 9:50 AM EDT Associated Problem(s): Stress-induced cardiomyopathy - Most recent EF ~ 43% - Holding home entresto, aldactone and metop- resumed 08/05 - Repeat echo: LV moderately dilated with Lvef 55%, left atrial cavity severely dilated, mild MVR, and mild pHTN. Compared to prior exam from 05/2022 LV fx improved. 08/06- hold Aldactone due to hyponatremia today until seen by nephrology * Assessment & Plan Note - Jenna Vazquez APRN.CNP - 08/09/2024 9:50 AM EDT Associated Problem(s): History of seizures - No home AEDs - Will continue keppra 1g BID - BEM DC 08/02 as no seizure activity noted. Moderate diffuse encephalopathy * Assessment & Plan Note - Jenna Vazquez APRN.CNP - 08/09/2024 9:50 AM EDT Associated Problem(s): Anxiety and depression - Holding home lexapro and seroquel - Initially held d/t lack of enteral access, now held d/t prolonged qtc - Repeat EKG ordered for AM 08/05- EKG- complete , no prolonged QT- 379 -May resume Lexapro and seroquel today 08/08: Escitalopram discontinued. Receiving Seroquel, QTc 487. * Assessment & Plan Note - Jenna Vazquez APRN.CNP - 08/09/2024 9:50 AM EDT Associated Problem(s): Diabetes mellitus type 2, controlled, without complications (HCC) - Hold [facility] - SSI - Accu checks AC/HS * Assessment & Plan Note - Jenna Vazquez APRN.CNP - 08/09/2024 9:50 AM EDT Associated Problem(s): Anticoagulated - No current AC use - Only on plavix - Given TXA at OSH - Continue to monitor platelets * Assessment & Plan Note - Jenna Vazquez APRN.CNP - 08/09/2024 9:50 AM EDT Associated Problem(s): On mechanically assisted ventilation (HCC) - Intubated for airway protection - Extubated 08/01 - Close respiratory monitoring * Assessment & Plan Note - Jenna Vazquez APRN.CNP - 08/09/2024 9:50 AM EDT Associated Problem(s): Stroke (HCC) - 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 - Hold home Plavix * Assessment & Plan Note - Jenna Vazquez APRN.CNP - 08/09/2024 9:50 AM EDT Associated Problem(s): LUZ (obstructive sleep apnea) - Does not wear home cpap - May need to initiate once extubated - Tele * Assessment & Plan Note - Jenna Vazquez APRN.CNP - 08/09/2024 9:50 AM EDT Associated Problem(s): HLD (hyperlipidemia) - Continue home statin * Assessment & Plan Note - Jenna Vazquez APRN.CNP - 08/09/2024 9:50 AM EDT Associated Problem(s): Closed fracture of multiple ribs of right side - Subacute 9-12th posterior rib fractures - No pain on exam this AM - Stable RA - MM pain control - Aggressive IS * Assessment & Plan Note - Jenna Vazquez APRN.CNP - 08/09/2024 9:50 AM EDT Associated Problem(s): Closed fracture of body of sternum - Subacute in nature - Echo: LV moderately dilated with Lvef 55%, left atrial cavity severely dilated, mild MVR, and mild pHTN. Compared to prior exam from 05/2022 LV fx improved. - Tele * Assessment & Plan Note - Jenna Vazquez APRN.CNP - 08/09/2024 9:50 AM EDT Associated Problem(s): Syncope and collapse - Unclear etiology of fall - Reports multiple falls and dizziness at home per - Echo: LV moderately dilated with Lvef 55%, left atrial cavity severely dilated, mild MVR, and mild pHTN. Compared to prior exam from 05/2022 LV fx improved. - Carotids: Bilateral carotid artery duplex with approximately 0-29% stenosis bilaterally. - Tele * Assessment & Plan Note - Jenna Vazquez APRN.CNP - 08/09/2024 9:50 AM EDT Associated Problem(s): Alcohol abuse -Patient reported to be heavy drinker per family -Started on phenobarb taper 08/02, now completed -CIWA * Assessment & Plan Note - Jenna Vazquez APRN.CNP - 08/09/2024 9:50 AM EDT Associated Problem(s): Severe protein-calorie malnutrition (HCC) - Nutrition consult * Assessment & Plan Note - Jenna Vazquez APRN.CNP - 08/09/2024 9:50 AM EDT Associated Problem(s): Refeeding syndrome - Daily labs - Replete electrolytes as needed - Slow TF advancement, will keep at 20ml/hr today and advance in AM. Goal is 50ml/hr * Assessment & Plan Note - Jenna Vazquez APRN.CNP - 08/09/2024 9:50 AM EDT Associated Problem(s): Vocal cord dysfunction - ENT consult - Spoke with Dr Euceda via text - He is to send Message to ENT scheduling team for out pt follow up * Assessment & Plan Note - Jenna Vazquez APRN.CNP - 08/08/2024 12:39 PM EDT Associated Problem(s): Subarachnoid hemorrhage (HCC) - Neurosurgery consulted - Non operative management - Neuro checks Q 4 - Repeat CT brain: Stable - MRI 08/01: Small focus of diffusion restriction posterior LEFT aspect of the patsy - BEM DC 08/02 as no seizure activity noted. Moderate diffuse encephalopathy - 20 min BEM 08/06: negative - SBP goal: < 140 - DVT ppx: SQH - 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 - Seizure prophylaxis: keppra - PT/OT: AR - MM pain control - 08/08 repeat CTH stable * Assessment & Plan Note - Jenna Vazquez APRN.CNP - 08/08/2024 12:39 PM EDT Associated Problem(s): Pharyngeal dysphagia - SANDING MACHINE OPERATOR OR TENDER eval: MBS Monday - Corpak placed 08/03 - Nutrition consult - NPO - Continue home PPI MBSS planned for 08/05- complete- vocal cord dysfunction - ENT consult Dr Euceda discussed via text- will set up out pt follow up * Assessment & Plan Note - Jenna Vazquez APRN.CNP - 08/08/2024 12:39 PM EDT Associated Problem(s): Anxiety and depression - Holding home lexapro and seroquel - Initially held d/t lack of enteral access, now held d/t prolonged qtc - Repeat EKG ordered for AM 08/05- EKG- complete , no prolonged QT- 379 -May resume Lexapro and seroquel today 08/08: Escitalopram discontinued. Receiving Seroquel, QTc 487. * Assessment & Plan Note - Jenna Vazquez APRN.CNP - 08/08/2024 12:39 PM EDT Associated Problem(s): Severe protein-calorie malnutrition (HCC) - Nutrition consult * Assessment & Plan Note - Jenna Vazquez APRN.CNP - 08/08/2024 12:39 PM EDT Associated Problem(s): Refeeding syndrome - Daily labs - Replete electrolytes as needed - Slow TF advancement, will keep at 20ml/hr today and advance in AM. Goal is 50ml/hr * Assessment & Plan Note - Jenna Vazquez APRN.CNP - 08/08/2024 12:39 PM EDT Associated Problem(s): Vocal cord dysfunction - ENT consult - Spoke with Dr Euceda via text - He is to send Message to ENT scheduling team for out pt follow up * Assessment & Plan Note - Jenna Vazquez APRN.CNP - 08/08/2024 12:39 PM EDT Associated Problem(s): Hyponatremia - Nephrology following. 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 FWF 50cc Q8h, continue salt tabs, no need for fluid restriction as not taking PO - Daily labs * Assessment & Plan Note - Jenna Vazquez APRN.CNP - 08/08/2024 9:11 AM EDT Associated Problem(s): HLD (hyperlipidemia) - Continue home statin * Assessment & Plan Note - Jenna Vazquez APRN.CNP - 08/08/2024 9:11 AM EDT Associated Problem(s): Closed fracture of multiple ribs of right side - Subacute 9-12th posterior rib fractures - No pain on exam this AM - Stable RA - MM pain control - Aggressive IS * Assessment & Plan Note - Jenna Vazquez APRN.CNP - 08/08/2024 9:11 AM EDT Associated Problem(s): Closed fracture of body of sternum - Subacute in nature - Echo: LV moderately dilated with Lvef 55%, left atrial cavity severely dilated, mild MVR, and mild pHTN. Compared to prior exam from 05/2022 LV fx improved. - Tele * Assessment & Plan Note - Jenna Vazquez APRN.CNP - 08/08/2024 9:11 AM EDT Associated Problem(s): Syncope and collapse - Unclear etiology of fall - Reports multiple falls and dizziness at home per - Echo: LV moderately dilated with Lvef 55%, left atrial cavity severely dilated, mild MVR, and mild pHTN. Compared to prior exam from 05/2022 LV fx improved. - Carotids: Bilateral carotid artery duplex with approximately 0-29% stenosis bilaterally. - Tele * Assessment & Plan Note - Jenna Vazquez APRN.CNP - 08/08/2024 9:11 AM EDT Associated Problem(s): Alcohol abuse -Patient reported to be heavy drinker per family -Started on phenobarb taper 08/02, now completed -CIWA * Assessment & Plan Note - Jenna Vazquez APRN.CNP - 08/08/2024 9:11 AM EDT Associated Problem(s): Stress-induced cardiomyopathy - Most recent EF ~ 43% - Holding home entresto, aldactone and metop- resumed 08/05 - Repeat echo: LV moderately dilated with Lvef 55%, left atrial cavity severely dilated, mild MVR, and mild pHTN. Compared to prior exam from 05/2022 LV fx improved. 08/06- hold Aldactone due to hyponatremia today until seen by nephrology * Assessment & Plan Note - Jenna Vazquez APRN.CNP - 08/08/2024 9:11 AM EDT Associated Problem(s): History of seizures - No home AEDs - Will continue keppra 1g BID - BEM DC 08/02 as no seizure activity noted. Moderate diffuse encephalopathy * Assessment & Plan Note - Jenna Vazquez APRN.CNP - 08/08/2024 9:11 AM EDT Associated Problem(s): Diabetes mellitus type 2, controlled, without complications (HCC) - Hold [facility] - [facility] - Accu checks AC/HS * Assessment & Plan Note - Jenna Vazquez APRN.CNP - 08/08/2024 9:11 AM EDT Associated Problem(s): Anticoagulated - No current AC use - Only on plavix - Given TXA at OSH - Continue to monitor platelets * Assessment & Plan Note - Jenna Vazquez APRN.CNP - 08/08/2024 9:11 AM EDT Associated Problem(s): On mechanically assisted ventilation (HCC) - Intubated for airway protection - Extubated 08/01 - Close respiratory monitoring * Assessment & Plan Note - Jenna Vazquez APRN.CNP - 08/08/2024 9:11 AM EDT Associated Problem(s): Stroke (HCC) - 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 Moderate diffuse encephalopathy - 20 min BEM 08/06: negative - SBP goal: < 140 - DVT ppx: SQH - 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 - Seizure prophylaxis: keppra - PT/OT: AR - MM pain control - 08/06 repeat CTH stable * Assessment & Plan Note - Black Carter APRN.CNP - 08/07/2024 10:08 AM EDT Associated Problem(s): Alcohol abuse -Patient reported to be heavy drinker per family -Started on phenobarb taper 08/02, now completed -CIWA * Assessment & Plan Note - Black Carter APRN.CNP - 08/07/2024 10:08 AM EDT Associated Problem(s): Refeeding syndrome -daily labs -Replete electrolytes as needed -Slow TF advancement, will keep at 20ml/hr today and advance in AM. 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 Reduce FWF, continue salt tabs, no need for fluid restriction as not taking PO -Daily labs -AM labs pending, will follow up * Assessment & Plan Note - Black Carter APRN.CNP - 08/07/2024 9:44 AM EDT Associated Problem(s): Pharyngeal dysphagia - SANDING MACHINE OPERATOR OR TENDER eval: MBS Monday - Corpak placed 08/03 - Nutrition consult - NPO - Continue home PPI MBSS planned for 08/05- complete- vocal cord dysfunction -ENT consult Dr Euceda discussed via text- will set up out pt follow up * Assessment & Plan Note - Black Carter APRN.CNP - 08/07/2024 9:44 AM EDT Associated Problem(s): Stress-induced cardiomyopathy - Most recent EF ~ 43% - Holding home entresto, aldactone and metop- resumed 08/05 - Repeat echo: LV moderately dilated with Lvef 55%, left atrial cavity severely dilated, mild MVR, and mild pHTN. Compared to prior exam from 05/2022 LV fx improved. 08/06- hold Aldactone due to hyponatremia today until seen by nephrology * Assessment & Plan Note - Black Carter APRN.CNP - 08/07/2024 9:44 AM EDT Associated Problem(s): History of seizures - No home AEDs - Will continue keppra 1g BID - BEM DC 08/02 as no seizure activity noted. Moderate diffuse encephalopathy * Assessment & Plan Note - Black Carter APRN.CNP - 08/07/2024 9:44 AM EDT Associated Problem(s): Anxiety and depression - Holding home lexapro and seroquel - Initially held d/t lack of enteral access, now held d/t prolonged qtc - Repeat EKG ordered for AM 08/05- EKG- complete , no prolonged QT- 379 -May resume Lexapro and seroquel today * Assessment & Plan Note - Black Carter APRN.CNP - 08/07/2024 9:44 AM EDT Associated Problem(s): Diabetes mellitus type 2, controlled, without complications (HCC) - Hold Farxiga - SSI - Accu checks AC/HS * Assessment & Plan Note - Black Carter APRN.CNP - 08/07/2024 9:44 AM EDT Associated Problem(s): Anticoagulated - No current AC use - Only on plavix - Given TXA at OSH - Continue to monitor platelets * Assessment & Plan Note - Black Carter APRN.CNP - 08/07/2024 9:44 AM EDT Associated Problem(s): On mechanically assisted ventilation (HCC) - Intubated for airway protection - Extubated 08/01 - Close respiratory monitoring * Assessment & Plan Note - Black Carter APRN.CNP - 08/07/2024 9:44 AM EDT Associated Problem(s): Stroke (HCC) - 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 - Hold home Plavix * Assessment & Plan Note - Black Carter APRN.CNP - 08/07/2024 9:44 AM EDT Associated Problem(s): LUZ (obstructive sleep apnea) - Does not wear home cpap - May need to initiate once extubated - Tele * Assessment & Plan Note - Black Carter APRN.CNP - 08/07/2024 9:44 AM EDT Associated Problem(s): HLD (hyperlipidemia) - Continue home statin * Assessment & Plan Note - Black Carter APRN.CNP - 08/07/2024 9:44 AM EDT Associated Problem(s): Closed fracture of multiple ribs of right side - Subacute 9-12th posterior rib fractures - No pain on exam this AM - Stable RA - MM pain control - Aggressive IS * Assessment & Plan Note - Black Carter APRN.CNP - 08/07/2024 9:44 AM EDT Associated Problem(s): Closed fracture of body of sternum - Subacute in nature - Echo: LV moderately dilated with Lvef 55%, left atrial cavity severely dilated, mild MVR, and mild pHTN. Compared to prior exam from 05/2022 LV fx improved. - Tele * Assessment & Plan Note - Black Carter APRN.CNP - 08/07/2024 9:44 AM EDT Associated Problem(s): Syncope and collapse - Unclear etiology of fall - Reports multiple falls and dizziness at home per - Echo: LV moderately dilated with Lvef 55%, left atrial cavity severely dilated, mild MVR, and mild pHTN. Compared to prior exam from 05/2022 LV fx improved. - Carotids: Bilateral carotid artery duplex with approximately 0-29% stenosis bilaterally. - Tele * Assessment & Plan Note - Black Carter APRN.CNP - 08/07/2024 9:44 AM EDT Associated Problem(s): Severe protein-calorie malnutrition (HCC) -Nutrition consult * Assessment & Plan Note - Raiza Bates APRN.CNP - 08/06/2024 2:43 PM EDT Associated Problem(s): Hyponatremia 08/06- nephrology consult salt tabs for 48 hrs send osmolytes 08/06 hold Aldactone today await nephrology input -start N . saline at 50 cc/ hr * Assessment & Plan Note - Raiza Bates APRN.CNP - 08/06/2024 2:43 PM EDT Associated Problem(s): Stress-induced cardiomyopathy - Most recent EF ~ 43% - Holding home entresto, aldactone and metop- resumed 08/05 - Repeat echo: LV moderately dilated with Lvef 55%, left atrial cavity severely dilated, mild MVR, and mild pHTN. Compared to prior exam from 05/2022 LV fx improved. 08/06- hold Aldactone due to hyponatremia today until seen by nephrology * Assessment & Plan Note - Raiza Bates APRN.CNP - 08/06/2024 9:37 AM EDT Associated Problem(s): Subarachnoid hemorrhage (HCC) - Neurosurgery consulted - Non operative management - Neuro checks Q 4 - Repeat CT brain: Stable - MRI 08/01: Small focus of diffusion restriction posterior LEFT aspect of the patsy - BEM DC 08/02 as no seizure activity noted. Moderate diffuse encephalopathy - SBP goal: < 140 - DVT ppx: SQH started today - 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 - Seizure prophylaxis: keppra - PT/OT: pending - MM pain control 08/06 concern for AMS change- stat CT ordered - follow * Assessment & Plan Note - Raiza Bates APRN.CNP - 08/06/2024 9:37 AM EDT Associated Problem(s): Pharyngeal dysphagia - SANDING MACHINE OPERATOR OR TENDER eval: MBS Monday - Los placed 08/03 - Nutrition consult - NPO - Continue home PPI MBSS planned for 08/05- complete- vocal cord dysfunction -ENT consult Dr Euceda discussed via text- will set up out pt follow up * Assessment & Plan Note - Raiza Bates APRN.CNP - 08/06/2024 7:53 AM EDT Associated Problem(s): Vocal cord dysfunction ENT consult spoke with Dr Euceda via text He is to send Message to ENT scheduling team for out pt follow up * Assessment & Plan Note - Raiza Bates APRN.CNP - 08/06/2024 7:53 AM EDT Associated Problem(s): History of seizures - No home AEDs - Will continue keppra 1g BID - BEM DC 08/02 as no seizure activity noted. Moderate diffuse encephalopathy * Assessment & Plan Note - Raiza Bates APRN.CNP - 08/06/2024 7:53 AM EDT Associated Problem(s): Anxiety and depression - Holding home lexapro and seroquel - Initially held d/t lack of enteral access, now held d/t prolonged qtc - Repeat EKG ordered for AM 08/05- EKG- complete , no prolonged QT- 379 -May resume Lexapro and seroquel today * Assessment & Plan Note - Raiza Bates APRN.CNP - 08/06/2024 7:53 AM EDT Associated Problem(s): Diabetes mellitus type 2, controlled, without complications (HCC) - Hold [facility] - Accu checks AC/HS * Assessment & Plan Note - Raiza Bates APRN.CNP - 08/06/2024 7:53 AM EDT Associated Problem(s): Anticoagulated - No current AC use - Only on plavix - Given TXA at OSH - Continue to monitor platelets * Assessment & Plan Note - Raiza Bates APRN.CNP - 08/06/2024 7:53 AM EDT Associated Problem(s): On mechanically assisted ventilation (HCC) - Intubated for airway protection - Extubated 08/01 - Close respiratory monitoring * Assessment & Plan Note - Raiza Bates APRN.CNP - 08/06/2024 7:53 AM EDT Associated Problem(s): Stroke (HCC) - 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 - Hold home Plavix * Assessment & Plan Note - Raiza Bates APRN.CNP - 08/06/2024 7:53 AM EDT Associated Problem(s): LUZ (obstructive sleep apnea) - Does not wear home cpap - May need to initiate once extubated - Tele * Assessment & Plan Note - Raiza Bates APRN.CNP - 08/06/2024 7:53 AM EDT Associated Problem(s): HLD (hyperlipidemia) - Continue home statin * Assessment & Plan Note - Raiza Bates APRN.CNP - 08/06/2024 7:53 AM EDT Associated Problem(s): Closed fracture of multiple ribs of right side - Subacute 9-12th posterior rib fractures - No pain on exam this AM - Stable RA - MM pain control - Aggressive IS * Assessment & Plan Note - Raiza Bates APRN.CNP - 08/06/2024 7:53 AM EDT Associated Problem(s): Closed fracture of body of sternum - Subacute in nature - Echo: LV moderately dilated with Lvef 55%, left atrial cavity severely dilated, mild MVR, and mild pHTN. Compared to prior exam from 05/2022 LV fx improved. - Tele * Assessment & Plan Note - Raiza Bates APRN.CNP - 08/06/2024 7:53 AM EDT Associated Problem(s): Syncope and collapse - Unclear etiology of fall - Reports multiple falls and dizziness at home per - Echo: LV moderately dilated with Lvef 55%, left atrial cavity severely dilated, mild MVR, and mild pHTN. Compared to prior exam from 05/2022 LV fx improved. - Carotids: Bilateral carotid artery duplex with approximately 0-29% stenosis bilaterally. - Tele * Assessment & Plan Note - Raiza Bates APRN.CNP - 08/06/2024 7:53 AM EDT Associated Problem(s): Alcohol abuse -Patient reported to be heavy drinker per family -Started on phenobarb taper 08/02 -CIWA * Assessment & Plan Note - Raiza Bates APRN.CNP - 08/06/2024 7:53 AM EDT Associated Problem(s): Severe protein-calorie malnutrition (HCC) -Nutrition consult * Assessment & Plan Note - Raiza Bates APRN.CNP - 08/06/2024 7:53 AM EDT Associated Problem(s): Refeeding syndrome -BID labs -Replete electrolytes as needed -Slow TF advancement, will keep at 20ml/hr today and advance in AM. 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 - Hold home Plavix * Assessment & Plan Note - Raiza Bates APRN.CNP - 08/05/2024 9:50 AM EDT Associated Problem(s): LUZ (obstructive sleep apnea) - Does not wear home cpap - May need to initiate once extubated - Tele * Assessment & Plan Note - Raiza Bates APRN.CNP - 08/05/2024 9:50 AM EDT Associated Problem(s): HLD (hyperlipidemia) - Continue home statin * Assessment & Plan Note - Raiza Bates APRN.CNP - 08/05/2024 9:50 AM EDT Associated Problem(s): Closed fracture of multiple ribs of right side - Subacute 9-12th posterior rib fractures - No pain on exam this AM - Stable RA - MM pain control - Aggressive IS * Assessment & Plan Note - Raiza Bates APRN.CNP - 08/05/2024 9:50 AM EDT Associated Problem(s): Closed fracture of body of sternum - Subacute in nature - Echo: LV moderately dilated with Lvef 55%, left atrial cavity severely dilated, mild MVR, and mild pHTN. Compared to prior exam from 05/2022 LV fx improved. - Tele * Assessment & Plan Note - Raiza Bates APRN.CNP - 08/05/2024 9:50 AM EDT Associated Problem(s): Syncope and collapse - Unclear etiology of fall - Reports multiple falls and dizziness at home per - Echo: LV moderately dilated with Lvef 55%, left atrial cavity severely dilated, mild MVR, and mild pHTN. Compared to prior exam from 05/2022 LV fx improved. - Carotids: Bilateral carotid artery duplex with approximately 0-29% stenosis bilaterally. - Tele * Assessment & Plan Note - Raiza Bates APRN.CNP - 08/05/2024 9:50 AM EDT Associated Problem(s): Alcohol abuse -Patient reported to be heavy drinker per family -Started on phenobarb taper 08/02 -CIWA * Assessment & Plan Note - Raiza Bates APRN.CNP - 08/05/2024 9:50 AM EDT Associated Problem(s): Severe protein-calorie malnutrition (HCC) -Nutrition consult * Assessment & Plan Note - Raiza Bates APRN.CNP - 08/05/2024 9:50 AM EDT Associated Problem(s): Refeeding syndrome -BID labs -Replete electrolytes as needed -Slow TF advancement, will keep at 20ml/hr today and advance in AM. Goal is 50ml/hr * Assessment & Plan Note - Raiza Bates APRN.CNP - 08/05/2024 9:50 AM EDT Associated Problem(s): Subarachnoid hemorrhage (HCC) - Neurosurgery consulted - Non operative management - Neuro checks Q 4 - Repeat CT brain: Stable - MRI 5/29: Small focus of diffusion restriction posterior LEFT aspect of the patsy - BEM DC 08/02 as no seizure activity noted. Moderate diffuse encephalopathy - SBP goal: < 140 - DVT ppx: SQH started today - 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 - Seizure prophylaxis: keppra - PT/OT: pending - MM pain control * Assessment & Plan Note - Raiza Bates APRN.CNP - 08/05/2024 9:50 AM EDT Associated Problem(s): Pharyngeal dysphagia - SANDING MACHINE OPERATOR OR TENDER eval: MBS Monday - Corpak placed 08/03 - Nutrition consult - NPO - Continue home PPI MBSS planned for 08/05 * Assessment & Plan Note - Raiza Bates APRN.CNP - 08/05/2024 9:50 AM EDT Associated Problem(s): Stress-induced cardiomyopathy - Most recent EF ~ 43% - Holding home entresto, aldactone and metop- resumed 08/05 - Repeat echo: LV moderately dilated with Lvef 55%, left atrial cavity severely dilated, mild MVR, and mild pHTN. Compared to prior exam from 05/2022 LV fx improved. * Assessment & Plan Note - Raiza Bates APRN.CNP - 08/05/2024 9:50 AM EDT Associated Problem(s): History of seizures - No home AEDs - Will continue keppra 1g BID - BEM DC 08/02 as no seizure activity noted. Moderate diffuse encephalopathy * Assessment & Plan Note - Raiza Bates APRN.CNP - 08/05/2024 9:50 AM EDT Associated Problem(s): Anxiety and depression - Holding home lexapro and seroquel - Initially held d/t lack of enteral access, now held d/t prolonged qtc - Repeat EKG ordered for AM 08/05- EKG- complete , no prolonged QT- 379 -May resume Lexapro and seroquel today * Assessment & Plan Note - Raiza Bates APRN.CNP - 08/05/2024 9:50 AM EDT Associated Problem(s): Diabetes mellitus type 2, controlled, without complications (HCC) - Hold Farxiga - SSI - Accu checks AC/HS * Assessment & Plan Note - Raiza Bates APRN.CNP - 08/05/2024 9:50 AM EDT Associated Problem(s): Anticoagulated - No current AC use - Only on plavix - Given TXA at OSH - Continue to monitor platelets * Assessment & Plan Note - Black Carter APRN.CNP - 08/04/2024 2:44 PM EDT Associated Problem(s): Subarachnoid hemorrhage (HCC) - Neurosurgery consulted - Non operative management - Neuro checks Q 4 - Repeat CT brain: Stable - MRI 08/01: Small focus of diffusion restriction posterior LEFT aspect of the patsy - BEM DC 08/02 as no seizure activity noted. Moderate diffuse encephalopathy - SBP goal: < 140 - DVT ppx: SQH started today - 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 - Seizure prophylaxis: keppra - PT/OT: pending - MM pain control * Assessment & Plan Note - Black Carter APRN.CNP - 08/04/2024 2:44 PM EDT Associated Problem(s): Pharyngeal dysphagia - SANDING MACHINE OPERATOR OR TENDER eval: SHOBHA Monday - Corpak placed 08/03 - Nutrition consult - NPO - Continue home PPI * Assessment & Plan Note - Black Carter APRN.CNP - 08/04/2024 2:44 PM EDT Associated Problem(s): Stress-induced cardiomyopathy - Most recent EF ~ 43% - Holding home entresto, aldactone and metop - Repeat echo: LV moderately dilated with Lvef 55%, left atrial cavity severely dilated, mild MVR, and mild pHTN. Compared to prior exam from 05/2022 LV fx improved. * Assessment & Plan Note - Black Carter APRN.CNP - 08/04/2024 2:44 PM EDT Associated Problem(s): History of seizures - No home AEDs - Will continue keppra 1g BID - BEM DC 08/02 as no seizure activity noted. Moderate diffuse encephalopathy * Assessment & Plan Note - Black Carter APRN.CNP - 08/04/2024 2:44 PM EDT Associated Problem(s): Anxiety and depression - Holding home lexapro and seroquel - Initially held d/t lack of enteral access, now held d/t prolonged qtc - Repeat EKG ordered for AM * Assessment & Plan Note - Black Carter APRN.CNP - 08/04/2024 2:44 PM EDT Associated Problem(s): Diabetes mellitus type 2, controlled, without complications (HCC) - [facility] - Accu checks AC/HS * Assessment & Plan Note - Black Carter APRN.CNP - 08/04/2024 2:44 PM EDT Associated Problem(s): Anticoagulated - No current AC use - Only on plavix - Given TXA at OSH - Continue to monitor platelets * Assessment & Plan Note - Black Carter APRN.CNP - 08/04/2024 2:44 PM EDT Associated Problem(s): On mechanically assisted ventilation (HCC) - Intubated for airway protection - Extubated 08/01 - Close respiratory monitoring * Assessment & Plan Note - Black Carter APRN.CNP - 08/04/2024 2:44 PM EDT Associated Problem(s): Stroke (HCC) - 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 - Hold home Plavix * Assessment & Plan Note - Black Carter APRN.CNP - 08/04/2024 2:44 PM EDT Associated Problem(s): LUZ (obstructive sleep apnea) - Does not wear home cpap - May need to initiate once extubated - Tele * Assessment & Plan Note - Black Caretr APRN.CNP - 08/04/2024 2:44 PM EDT Associated Problem(s): HLD (hyperlipidemia) - Continue home statin * Assessment & Plan Note - Black Carter APRN.CNP - 08/04/2024 2:44 PM EDT Associated Problem(s): Closed fracture of multiple ribs of right side - Subacute 9-12th posterior rib fractures - No pain on exam this AM - Stable RA - MM pain control - Aggressive IS * Assessment & Plan Note - Black Carter APRN.CNP - 08/04/2024 2:44 PM EDT Associated Problem(s): Closed fracture of body of sternum - Subacute in nature - Echo: LV moderately dilated with Lvef 55%, left atrial cavity severely dilated, mild MVR, and mild pHTN. Compared to prior exam from 05/2022 LV fx improved. - Tele * Assessment & Plan Note - Black Carter APRN.CNP - 08/04/2024 2:44 PM EDT Associated Problem(s): Syncope and collapse - Unclear etiology of fall - Reports multiple falls and dizziness at home per - Echo: LV moderately dilated with Lvef 55%, left atrial cavity severely dilated, mild MVR, and mild pHTN. Compared to prior exam from 05/2022 LV fx improved. - Carotids: Bilateral carotid artery duplex with approximately 0-29% stenosis bilaterally. - Tele * Assessment & Plan Note - Black Carter APRN.CNP - 08/04/2024 2:44 PM EDT Associated Problem(s): Alcohol abuse -Patient reported to be heavy drinker per family -Started on phenobarb taper 08/02 -CIWA * Assessment & Plan Note - Black Carter APRN.CNP - 08/04/2024 2:44 PM EDT Associated Problem(s): Severe protein-calorie malnutrition (HCC) -Nutrition consult * Assessment & Plan Note - Black Carter APRN.CNP - 08/04/2024 2:44 PM EDT Associated Problem(s): Refeeding syndrome -BID labs -Replete electrolytes as needed -Slow TF advancement, will keep at 20ml/hr today and advance in AM. Goal is 50ml/hr * Assessment & Plan Note - Black Carter APRN.CNP - 08/03/2024 1:28 PM EDT Associated Problem(s): Subarachnoid hemorrhage (HCC) - Neurosurgery consulted - Non operative management - Neuro checks Q 4 - Repeat CT brain: Stable - MRI 08/01: Small focus of diffusion restriction posterior LEFT aspect of the patsy - BEM DC 08/02 as no seizure activity noted. Moderate diffuse encephalopathy - SBP goal: < 140 - DVT ppx: SQH started today - 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 - Seizure prophylaxis: keppra - PT/OT: pending - MM pain control * Assessment & Plan Note - Black Carter APRN.CNP - 08/03/2024 1:28 PM EDT Associated Problem(s): Pharyngeal dysphagia - SANDING MACHINE OPERATOR OR TENDER eval: MBS Monday - Will place corpak today - Nutrition consult - NPO currently - Continue home PPI * Assessment & Plan Note - Black Carter APRN.CNP - 08/03/2024 1:28 PM EDT Associated Problem(s): Stress-induced cardiomyopathy - Most recent EF ~ 43% - Holding home entresto, aldactone and metop - Repeat echo: LV moderately dilated with Lvef 55%, left atrial cavity severely dilated, mild MVR, and mild pHTN. Compared to prior exam from 05/2022 LV fx improved. * Assessment & Plan Note - Black Carter APRN.CNP - 08/03/2024 1:28 PM EDT Associated Problem(s): History of seizures - No home AEDs - Will continue keppra 1g BID - BEM DC 08/02 as no seizure activity noted. Moderate diffuse encephalopathy * Assessment & Plan Note - Black Carter APRN.CNP - 08/03/2024 1:28 PM EDT Associated Problem(s): Anxiety and depression - Holding home lexapro and seroquel * Assessment & Plan Note - Black Carter APRN.CNP - 08/03/2024 1:28 PM EDT Associated Problem(s): Diabetes mellitus type 2, controlled, without complications (HCC) - Hold Farxiga - SSI - Accu checks AC/HS * Assessment & Plan Note - Black Carter APRN.CNP - 08/03/2024 1:28 PM EDT Associated Problem(s): Anticoagulated - No current AC use - Only on plavix - Given TXA at OSH - Continue to monitor platelets * Assessment & Plan Note - Black Carter APRN.CNP - 08/03/2024 1:28 PM EDT Associated Problem(s): On mechanically assisted ventilation (HCC) - Intubated for airway protection - Extubated 08/01 - Close respiratory monitoring * Assessment & Plan Note - Black Carter APRN.CNP - 08/03/2024 1:28 PM EDT Associated Problem(s): Stroke (HCC) - 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 - Hold home Plavix * Assessment & Plan Note - Black Carter APRN.CNP - 08/03/2024 1:28 PM EDT Associated Problem(s): LUZ (obstructive sleep apnea) - Does not wear home cpap - May need to initiate once extubated - Tele * Assessment & Plan Note - Black Carter APRN.CNP - 08/03/2024 1:28 PM EDT Associated Problem(s): HLD (hyperlipidemia) - Continue home statin * Assessment & Plan Note - Black Carter APRN.CNP - 08/03/2024 1:28 PM EDT Associated Problem(s): Closed fracture of multiple ribs of right side - Subacute 9-12th posterior rib fractures - No pain on exam this AM - Stable RA - MM pain control - Aggressive IS * Assessment & Plan Note - Black Carter APRN.CNP - 08/03/2024 1:28 PM EDT Associated Problem(s): Closed fracture of body of sternum - Subacute in nature - Echo: LV moderately dilated with Lvef 55%, left atrial cavity severely dilated, mild MVR, and mild pHTN. Compared to prior exam from 05/2022 LV fx improved. - Tele * Assessment & Plan Note - Black Carter APRN.CNP - 08/03/2024 1:28 PM EDT Associated Problem(s): Syncope and collapse - Unclear etiology of fall - Reports multiple falls and dizziness at home per - Echo: LV moderately dilated with Lvef 55%, left atrial cavity severely dilated, mild MVR, and mild pHTN. Compared to prior exam from 05/2022 LV fx improved. - Carotids: Bilateral carotid artery duplex with approximately 0-29% stenosis bilaterally. 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 Compared to prior exam from 05/2022 LV fx improved. - Carotids: Bilateral carotid artery duplex with approximately 0-29% stenosis bilaterally. - Tele * Assessment & Plan Note - Black Carter APRN.CNP - 08/02/2024 12:23 PM EDT Associated Problem(s): Subarachnoid hemorrhage (HCC) - Neurosurgery consulted - Non operative management - Neuro checks Q 4 - Repeat CT brain: Stable - MRI 08/01: Small focus of diffusion restriction posterior LEFT aspect of the patsy - BEM DC 08/02 as no seizure activity noted. Moderate diffuse encephalopathy - SBP goal: < 140 - DVT ppx: SCD's - 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 - Seizure prophylaxis: keppra - PT/OT: pending - MM pain control * Assessment & Plan Note - Black Carter APRN.CNP - 08/02/2024 12:23 PM EDT Associated Problem(s): Pharyngeal dysphagia - SANDING MACHINE OPERATOR OR TENDER eval pending, failed nursing bedside swallow - NPO currently - Continue home PPI * Assessment & Plan Note - Black Carter APRN.CNP - 08/02/2024 12:23 PM EDT Associated Problem(s): History of seizures - No home AEDs - Will continue keppra 1g BID - BEM DC today as no seizure activity noted. Moderate diffuse encephalopathy * Assessment & Plan Note - Black Carter APRN.CNP - 08/02/2024 12:20 PM EDT Associated Problem(s): Stress-induced cardiomyopathy - Most recent EF ~ 43% - Holding home entresto, aldactone and metop - Repeat echo: LV moderately dilated with Lvef 55%, left atrial cavity severely dilated, mild MVR, and mild pHTN. Compared to prior exam from 05/2022 LV fx improved. * Assessment & Plan Note - Black Carter APRN.CNP - 08/02/2024 12:20 PM EDT Associated Problem(s): On mechanically assisted ventilation (HCC) - Intubated for airway protection - Extubated 08/01 - Close respiratory monitoring * Assessment & Plan Note - Black Carter APRN.CNP - 08/02/2024 12:20 PM EDT Associated Problem(s): Closed fracture of multiple ribs of right side - Subacute 9-12th posterior rib fractures - No pain on exam this AM - Stable RA - MM pain control - Aggressive IS * Assessment & Plan Note - Black Carter APRN.CNP - 08/02/2024 12:20 PM EDT Associated Problem(s): Closed fracture of body of sternum - Subacute in nature - Echo: LV moderately dilated with Lvef 55%, left atrial cavity severely dilated, mild MVR, and mild pHTN. Compared to prior exam from 05/2022 LV fx improved. - Tele * Assessment & Plan Note - Black Carter APRN.CNP - 08/02/2024 12:20 PM EDT Associated Problem(s): Alcohol abuse -Patient reported to be heavy drinker per family -Started on phenobarb taper 08/02 -CIWA * Assessment & Plan Note - Black Carter APRN.CNP - 08/02/2024 8:00 AM EDT Associated Problem(s): Anxiety and depression - Holding home lexapro and seroquel * Assessment & Plan Note - Black Carter APRN.CNP - 08/02/2024 8:00 AM EDT Associated Problem(s): Diabetes mellitus type 2, controlled, without complications (HCC) - Hold Farxiga - SSI - Accu checks AC/HS * Assessment & Plan Note - Black Carter APRN.CNP - 08/02/2024 8:00 AM EDT Associated Problem(s): Anticoagulated - No current AC use - Only on plavix - Given TXA at OSH - Continue to monitor platelets * Assessment & Plan Note - Black Carter APRN.CNP - 08/02/2024 8:00 AM EDT Associated Problem(s): LUZ (obstructive sleep apnea) - Does not wear home cpap - May need to initiate once extubated - Tele * Assessment & Plan Note - Black Carter APRN.CNP - 08/02/2024 8:00 AM EDT Associated Problem(s): HLD (hyperlipidemia) - Continue home statin * Assessment & Plan Note - Amadeo Anaya APRN.CNP - 08/01/2024 4:25 PM EDT Associated Problem(s): Subarachnoid hemorrhage (HCC) - Neurosurgery consulted - Non operative management - Neuro checks Q 4 - Repeat CT brain: Stable - Planning for MRI w/wo - SBP goal: < 140 - DVT ppx: SCD's - 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 - Seizure prophylaxis: keppra - PT/OT - MM pain control * Assessment & Plan Note - Amadeo Anaya APRN.CNP - 08/01/2024 4:25 PM EDT Associated Problem(s): Stress-induced cardiomyopathy - Most recent EF ~ 43% - Holding home entresto, aldactone and metop - Repeat echo ordered * Assessment & Plan Note - Amadeo Anaya APRN.CNP - 08/01/2024 4:25 PM EDT Associated Problem(s): Pharyngeal dysphagia - Will need swallow eval once extubated - Continue home PPI * Assessment & Plan Note - Amadeo Anaya APRN.CNP - 08/01/2024 4:25 PM EDT Associated Problem(s): History of seizures - No home AEDs - Will continue keppra 1g BID - BEM in place for concern of seizures at home * Assessment & Plan Note - Amadeo Anaya APRN.CNP - 08/01/2024 4:25 PM EDT Associated Problem(s): Anxiety and depression - Holding home lexapro and seroquel * Assessment & Plan Note - Amadeo Anaya APRN.KENO WRITER - 08/01/2024 4:25 PM EDT Associated Problem(s): Diabetes mellitus type 2, controlled, without complications (HCC) - Hold Farxiga - SSI - Accu checks AC/HS * Assessment & Plan Note - Amadeo Anaya APRN.KENO WRITER - 08/01/2024 4:25 PM EDT Associated Problem(s): Anticoagulated - No current AC use - Only on plavix - Given TXA at OSH - Continue to monitor platelets * Assessment & Plan Note - Amadeo Anaya APRN.KENO WRITER - 08/01/2024 4:25 PM EDT Associated Problem(s): On mechanically assisted ventilation (HCC) - Intubated for airway protection - Extubated this AM - Close respiratory monitoring * Assessment & Plan Note - Amadeo Anaya APRN.KENO WRITER - 08/01/2024 4:25 PM EDT Associated Problem(s): Stroke (HCC) - 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 * Assessment & Plan Note - Amadeo Anaya APRN.CNP - 08/01/2024 4:25 PM EDT Associated Problem(s): LUZ (obstructive sleep apnea) - Does not wear home cpap - May need to initiate once extubated - Tele * Assessment & Plan Note - Amadeo Anaya APRN.CNP - 08/01/2024 4:25 PM EDT Associated Problem(s): HLD (hyperlipidemia) - Continue home statin * Assessment & Plan Note - Amadeo Anaya APRN.CNP - 08/01/2024 4:25 PM EDT Associated Problem(s): Closed fracture of multiple ribs of right side - Subacute 9-12th posterior rib fractures - No pain on exam this AM - MM pain control - Aggressive IS * Assessment & Plan Note - Amadeo Anaya APRN.CNP - 08/01/2024 4:25 PM EDT Associated Problem(s): Closed fracture of body of sternum - Subacute in nature - Echo pending - Tele * Assessment & Plan Note - Amadeo Anaya APRN.CNP - 08/01/2024 4:25 PM EDT Associated Problem(s): Syncope and collapse - Unclear etiology of fall - Reports multiple falls and dizziness at home per - Echo pending - Carotids pending - Tele documented in this encounter Admitting Diagnoses Diagnosis Subarachnoid hemorrhage (HCC) Subarachnoid hemorrhage documented in this encounter Administered Medications Inactive Administered Medications - up to 3 most recent administrations Medication Order MAR Action Action Date Dose Rate Site acetaminophen 650 mg tab(s) (TYLENOL) 650 mg, ORAL, EVERY 6 HOURS NEEDED, Starting on Gricel 5/29/25 at 1233, Until Mon08/09/24 at 2142, Mild Pain (1-3) - Enteral, Moderate Pain (4-6) - Enteral, If ordered PRN for pain, patient/guardian may elect to receive this medication for higher pain levels INSTEAD of the opioid, if preferred: Yes Given 08/08/2024 8:37 AM EDT 650 mg Given 08/06/2024 4:26 AM EDT 650 mg acetaminophen 650 mg tab(s) (TYLENOL) 650 mg, ORAL/FEEDING TUBE, EVERY 6 HOURS NEEDED, Starting on Mon08/09/24 at 2141, Until Gricel 08/15/24 at 1753, Mild Pain (1-3) - Enteral, Moderate Pain (4-6) - Enteral, If ordered PRN for pain, patient/guardian may elect to receive this medication for higher pain levels INSTEAD of the opioid, if preferred: Yes Given 08/14/2024 9:26 PM EDT 650 mg Feeding Tube Given 08/14/2024 12:11 PM EDT 650 mg F eeding Tube Given 08/13/2024 8:50 AM EDT 650 mg Fe eding Tube cefTRIAXone iv piggyback 1 g in dextrose (iso-osmotic) 50 mL (ROCEPHIN) 1 g, INTRAVENOUS, at 100 mL/hr, Administer over 30 Minutes, EVERY 24 HOURS, First dose on Mon08/09/24 at 1300, Until Discontinued, DO product = Refrigerate. B. Ferguson DUPLEX product = Room Temp., Antimicrobial indication: Empiric, Infectious source(s): Urinary/renal, Pharmacist may modify dose per [facility] dose optimization consult agreement: Yes New Bag/Syringe/Bottle 08/12/2024 9:06 AM EDT 1 g 100 mL/hr New Bag/Syringe/Bottle 08/11/2024 9:33 AM EDT 1 g 1 00 mL/hr New Bag/Syringe/Bottle 08/10/2024 8:41 AM EDT 1 g 1 00 mL/hr cefTRIAXone iv piggyback 1 g in dextrose (iso-osmotic) 50 mL (ROCEPHIN) 1 g, INTRAVENOUS, at 100 mL/hr, Administer over 30 Minutes, EVERY 24 HOURS, 1 dose, First dose (after last modification) on Mon08/13/24 at 0900, DO product = Refrigerate. B. Ferguson DUPLEX product = Room Temp., Antimicrobial indication: Empiric, Infectious source(s): Urinary/renal, Pharmacist may modify dose per [facility] dose optimization consult agreement: Yes New Bag/Syringe/Tai paulette 08/13/2024 8:45 AM EDT 1 g 100 mL/hr dextrose 10% iv bolus 125 mL (12.5 g), INTRAVENOUS, at 750 mL/hr, Administer over 10 Minutes, NEEDED, Starting on Mon07/31/24 at 1203, Until Gricel 08/15/24 at 1753, low blood sugar, Use when blood glucose is less than 70 mg/dL (60 mg/dL if ) and patient has IV access Program on smart pump using dextrose 10% bolus file - NONCYTOTOXIC VESICANT - New Bag/Syringe/Tai paulette 08/03/2024 6:07 AM EDT 125 mL 750 mL/hr dextrose 40 % 15 g 15 g, ORAL, NEEDED, Starting on Mon07/31/24 at 1203, Until Gricel 08/15/24 at 1753, low blood sugar, Use when blood glucose is less than 70 mg/dL (60 mg/dL if ) and patient demonstrates diminished level of consciousness but is able to swallow without risk of aspiration Each 37.5 gram TUBE of dextrose 40% oral gel delivers a DOSE = 15 GRAMS of CARBOHYDRATE --- Administer ONLY if the patient is awake/alert and able to swallow. escitalopram oxalate 30 mg tab(s) (LEXAPRO) 30 mg, ORAL/FEEDING TUBE, DAILY, First dose (after last modification) on Mon08/04/24 at 0900, Until Discontinued Given 08/04/2024 9:07 AM EDT 30 mg Feeding Tube escitalopram oxalate 30 mg tab(s) (LEXAPRO) 30 mg, ORAL, DAILY, First dose on Mon08/05/24 at 1000, Until Discontinued Given 08/07/2024 8:52 AM EDT 30 mg Given 08/06/2024 9:49 AM EDT 30 mg Given 08/05/2024 10:15 AM EDT 30 mg fentaNYL 20 mcg/mL iv infusion in NaCl 0.9% 100 mL (SUBLIMAZE) 25-250 mcg/hr (1.25-12.5 mL/hr), INTRAVENOUS, CONTINUOUS, Starting on Mon07/31/24 at 0700, Until Mon07/31/24 at 1145, Titrate to pain score of 2 or less Start drip at 50 mcg/hr, titrate by 25-50 mcg/hr every 30-60 minutes. Increase dose by 25 mcg/hr if more than 4 fentanyl bolus doses given in a 60 minute timeframe. Contact LIP if dose adjusted by more than 50 mcg/hr within 30 minutes. If spontaneous awakening trial (SAT) indicated, turn infusion off and monitor. If SAT failure or patient's pain score is above goal, then re-start at one-half of the previous dose and titrate to pain score goal (as ordered above). New Bag/Syringe/Bot tle 07/31/2024 7:13 AM EDT 50 mcg/hr 2.5 mL/hr fentaNYL 25-50 mcg bolus from bag/syringe (SUBLIMAZE) 25-50 mcg, INTRAVENOUS, Administer over 1 Minutes, EVERY 5 MINUTES NEEDED, Starting on Mon07/31/24 at 0654, Until Mon07/31/24 at 1145, Moderate Pain (4-6) - Parenteral, Severe Pain (>/=7) - Parenteral, Maximum 300 mcg in any one hour Administration method is bolus dose from bag via bolus feature on smart pump if this is the only medication running through the line (exception: IV fluids). Bolus from Bag 07/31/2024 10:07 AM EDT 50 mcg fentaNYL 50 mcg bolus from bag/syringe (SUBLIMAZE) 50 mcg, INTRAVENOUS, Administer over 1 Minutes, ONCE, 1 dose, On Mon07/31/24 at 0700, Administer as initial bolus prior to starting infusion Administration method is bolus dose from bag via bolus feature on smart pump if this is the only medication running through the line (exception: IV fluids). Bolus from Bag 07/31/2024 7:13 AM EDT 50 mcg fentaNYL 50 mcg/mL 25-50 mcg injection (SUBLIMAZE) 25-50 mcg, INTRAVENOUS, EVERY 5 MINUTES NEEDED, Starting on Mon07/31/24 at 1145, Until Gricel 08/01/24 at 1233, Moderate Pain (4-6) - Parenteral, Severe Pain (>/=7) - Parenteral, Give 25 mcg for moderate pain. Give 50 mcg for severe pain. If more than 3 doses are given consecutively in 1 hour, contact physician/LIP for fentanyl infusion order Given 08/01/2024 9:38 AM EDT 50 mcg folic acid 1 mg tab(s) 1 mg, ORAL/FEEDING TUBE, DAILY, First dose on Mon08/04/24 at 1500, Until Discontinued Given 08/15/2024 9:03 AM EDT 1 mg Feeding Tube Given 08/14/2024 9:26 AM EDT 1 mg Fe eding Tube Given 08/13/2024 8:45 AM EDT 1 mg Fe eding Tube glucagon 1 mg injection 1 mg, INTRAMUSCULAR, NEEDED, Starting on Mon07/31/24 at 1203, Until Gricel 08/15/24 at 1753, low blood sugar, Use when blood glucose is less than 70 mg/dL (60 mg/dL if ) and patient has no IV access heparin 5,000 Units injection 5,000 Units, SUBCUTANEOUS, EVERY 12 HOURS, First dose on Mon08/02/24 at 1030, Until Discontinued Given 08/15/2024 9:03 AM EDT 5,000 Units Abdominal Tissue Given 08/14/2024 9:26 PM EDT 5,000 Units A rm, Right Given 08/14/2024 9:26 AM EDT 5,000 Units A rm, Right hydrALAZINE 10 mg injection (APRESOLINE) 10 mg, INTRAVENOUS, EVERY 6 HOURS NEEDED, Starting on Mon07/31/24 at 2118, Until Mon08/14/24 at 1521, Give for blood pressure of:, SBP > 140, Administer IV push over 3-5 minutes. Given 08/02/2024 9:44 AM EDT 10 mg Given 08/02/2024 3:20 AM EDT 10 mg Given 08/01/2024 9:38 AM EDT 10 mg insulin lispro injection (rapid acting) (ADMElog) SUBCUTANEOUS, EVERY 6 HOURS, First dose on Mon08/02/24 at 1500, Until Discontinued, ADMINISTER CORRECTIONAL INSULIN REGARDLESS OF MEAL OR NUTRITION INTAKE Scale 2 If Blood Glucose (mg/dL) is: Less than 110 Give 0 units 111-150 Give 0 units 151-200 Give 2 units 201-250 Give 4 units 251-300 Give 6 units 301-350 Give 8 units 351-400 Give 10 units Greater than 400 Give 10 units and Notify Provider Notify provider if 2 consecutive blood glucose values in the previous 24 hours are greater than 250 mg/dL and there have been no changes to the insulin regimen in the previous 24 hours. Given 08/15/2024 12:23 PM EDT 2 Units Abdominal Tissue Given 08/15/2024 6:00 AM EDT 2 Units Ar m, Left Given 08/15/2024 12:00 AM EDT 2 Units A rm, Right labetalol 5 mg injection (NORMODYNE) 5 mg, INTRAVENOUS, EVERY 2 HOURS NEEDED, Starting on Mon08/02/24 at 1022, Until Mon08/13/24 at 0808, Give for blood pressure of:, SBP > 140, Hold for HR < 60 Protect from Light. Given 08/02/2024 12:31 PM EDT 5 mg Given 08/02/2024 10:27 AM EDT 5 mg lactated ringers iv infusion 50 mL/hr, INTRAVENOUS, CONTINUOUS, Starting on Mon07/31/24 at 1200, Until Gricel 08/01/24 at 0648 New Bag/Syringe/Bottle 07/31/2024 12:06 PM EDT 50 mL/hr 50 mL/hr levETIRAcetam 1,000 mg injection (KEPPRA) 1,000 mg, INTRAVENOUS, 2 TIMES DAILY, 14 doses, First dose on Mon07/31/24 at 0930, Last dose on Mon08/06/24 at 2100, Administer IV push over 2-5 minutes. Given 08/06/2024 8:24 PM EDT 1,000 mg Given 08/06/2024 9:53 AM EDT 1,000 mg Given 08/05/2024 9:36 PM EDT 1,000 mg lidocaine urojet 2 % 6 mL topical gel (GLYDO) 6 mL, MUCOUS MEMBRANE, ONCE, 1 dose, On 08/03/24 at 1330, FOR EXTERNAL USE ONLY APPLY TO: Nares. Please leave at bedside, provider will apply before feeding tube placement Given 08/03/2024 1:30 PM EDT 6 mL magnesium sulfate in sterile water 4 g in 100 mL iv piggyback 4 g, INTRAVENOUS, at 25 mL/hr, Administer over 4 Hours, ONCE, 1 dose, On 08/04/24 at 0800, Magnesium sulfate iv bolus will be infused at a rate of 1 gram/hr The following nursing units may administer 2 g dose over 1 hour if necessary: ICUs/PACU/ED, Adult Hematology/Oncology, Labor and Delivery, Cardiac Stepdown, Headache Clinic If necessary, a magnesium sulfate bolus may be administered greater than 2 g/hr for the following indications: Adult and Pediatric Asthma Exacerbations, Torsade de Pointes, Pediatric BMT and Hematology/Oncology, Eclampsia or Preeclampsia New Bag/Syringe/Bottle 08/04/2024 9:32 AM EDT 4 g 25 mL/hr magnesium sulfate iv piggyback in sterile water 2 g 50 mL 2 g, INTRAVENOUS, at 25 mL/hr, Administer over 2 Hours, EVERY 2 HOURS, 3 doses, First dose on Gricel 08/01/24 at 0800, Last dose on Gricel 08/01/24 at 1200, Magnesium sulfate iv bolus will be infused at a rate of 1 gram/hr The following nursing units may administer 2 g dose over 1 hour if necessary: ICUs/PACU/ED, Adult Hematology/Oncology, Labor and Delivery, Cardiac Stepdown, Headache Clinic If necessary, a magnesium sulfate bolus may be administered greater than 2 g/hr for the following indications: Adult and Pediatric Asthma Exacerbations, Torsade de Pointes, Pediatric BMT and Hematology/Oncology, Eclampsia or Preeclampsia New Bag/Syringe/Bottle 08/01/2024 11:04 AM EDT 2 g 25 mL/hr New Bag/Syringe/Bottle 08/01/2024 9:40 AM EDT 2 g 2 5 mL/hr New Bag/Syringe/Bottle 08/01/2024 7:40 AM EDT 2 g 2 5 mL/hr magnesium sulfate iv piggyback in sterile water 2 g 50 mL 2 g, INTRAVENOUS, at 25 mL/hr, Administer over 2 Hours, ONCE, 1 dose, On 08/03/24 at 1200, Magnesium sulfate iv bolus will be infused at a rate of 1 gram/hr The following nursing units may administer 2 g dose over 1 hour if necessary: ICUs/PACU/ED, Adult Hematology/Oncology, Labor and Delivery, Cardiac Stepdown, Headache Clinic If necessary, a magnesium sulfate bolus may be administered greater than 2 g/hr for the following indications: Adult and Pediatric Asthma Exacerbations, Torsade de Pointes, Pediatric BMT and Hematology/Oncology, Eclampsia or Preeclampsia New Bag/Syringe/Bottle 08/03/2024 12:01 PM EDT 2 g 25 mL/hr magnesium sulfate iv piggyback in sterile water 2 g 50 mL 2 g, INTRAVENOUS, at 25 mL/hr, Administer over 2 Hours, ONCE, 1 dose, On Mon08/05/24 at 1000, Magnesium sulfate iv bolus will be infused at a rate of 1 gram/hr The following nursing units may administer 2 g dose over 1 hour if necessary: ICUs/PACU/ED, Adult Hematology/Oncology, Labor and Delivery, Cardiac Stepdown, Headache Clinic If necessary, a magnesium sulfate bolus may be administered greater than 2 g/hr for the following indications: Adult and Pediatric Asthma Exacerbations, Torsade de Pointes, Pediatric BMT and Hematology/Oncology, Eclampsia or Preeclampsia New Bag/Syringe/Bottle 08/05/2024 10:15 AM EDT 2 g 25 mL/hr magnesium sulfate iv piggyback in sterile water 2 g 50 mL 2 g, INTRAVENOUS, at 25 mL/hr, Administer over 2 Hours, ONCE, 1 dose, On Mon08/06/24 at 0930, Magnesium sulfate iv bolus will be infused at a rate of 1 gram/hr The following nursing units may administer 2 g dose over 1 hour if necessary: ICUs/PACU/ED, Adult Hematology/Oncology, Labor and Delivery, Cardiac Stepdown, Headache Clinic If necessary, a magnesium sulfate bolus may be administered greater than 2 g/hr for the following indications: Adult and Pediatric Asthma Exacerbations, Torsade de Pointes, Pediatric BMT and Hematology/Oncology, Eclampsia or Preeclampsia New Bag/Syringe/Bottle 08/06/2024 10:02 AM EDT 2 g 25 mL/hr magnesium sulfate iv piggyback in sterile water 2 g 50 mL 2 g, INTRAVENOUS, at 25 mL/hr, Administer over 2 Hours, ONCE, 1 dose, On Mon08/08/24 at 0830, Magnesium sulfate iv bolus will be infused at a rate of 1 gram/hr The following nursing units may administer 2 g dose over 1 hour if necessary: ICUs/PACU/ED, Adult Hematology/Oncology, Labor and Delivery, Cardiac Stepdown, Headache Clinic If necessary, a magnesium sulfate bolus may be administered greater than 2 g/hr for the following indications: Adult and Pediatric Asthma Exacerbations, Torsade de Pointes, Pediatric BMT and Hematology/Oncology, Eclampsia or Preeclampsia New Bag/Syringe/Bottle 08/08/2024 8:37 AM EDT 2 g 25 mL/hr magnesium sulfate iv piggyback in sterile water 2 g 50 mL 2 g, INTRAVENOUS, at 25 mL/hr, Administer over 2 Hours, ONCE, 1 dose, On Mon08/10/24 at 1000, Magnesium sulfate iv bolus will be infused at a rate of 1 gram/hr The following nursing units may administer 2 g dose over 1 hour if necessary: ICUs/PACU/ED, Adult Hematology/Oncology, Labor and Delivery, Cardiac Stepdown, Headache Clinic If necessary, a magnesium sulfate bolus may be administered greater than 2 g/hr for the following indications: Adult and Pediatric Asthma Exacerbations, Torsade de Pointes, Pediatric BMT and Hematology/Oncology, Eclampsia or Preeclampsia New Bag/Syringe/Bottle 08/10/2024 10:20 AM EDT 2 g 25 mL/hr magnesium sulfate iv piggyback in sterile water 2 g 50 mL 2 g, INTRAVENOUS, at 25 mL/hr, Administer over 2 Hours, ONCE, 1 dose, On Mon08/13/24 at 0830, Magnesium sulfate iv bolus will be infused at a rate of 1 gram/hr The following nursing units may administer 2 g dose over 1 hour if necessary: ICUs/PACU/ED, Adult Hematology/Oncology, Labor and Delivery, Cardiac Stepdown, Headache Clinic If necessary, a magnesium sulfate bolus may be administered greater than 2 g/hr for the following indications: Adult and Pediatric Asthma Exacerbations, Torsade de Pointes, Pediatric BMT and Hematology/Oncology, Eclampsia or Preeclampsia New Bag/Syringe/Bottle 08/13/2024 9:15 AM EDT 2 g 25 mL/hr metoprolol tartrate (short acting) 25 mg tab(s) (LOPRESSOR) 25 mg, ORAL, EVERY 12 HOURS, First dose on Mon08/05/24 at 1000, Until Discontinued, hold for systolic <120 and heart rate <60 BPM Given 08/09/2024 9:36 AM EDT 25 mg Given 08/08/2024 9:04 PM EDT 25 mg Given 08/08/2024 8:37 AM EDT 25 mg metoprolol tartrate (short acting) 25 mg tab(s) (LOPRESSOR) 25 mg, ORAL/FEEDING TUBE, EVERY 12 HOURS, First dose (after last modification) on Mon08/09/24 at 2230, Until Discontinued, hold for systolic <120 and heart rate <60 BPM Given 08/14/2024 9:26 PM EDT 25 mg Feedi ng Tube Given 08/13/2024 8:45 AM EDT 25 mg Fe eding Tube Given 08/12/2024 9:19 PM EDT 25 mg Fe eding Tube NaCl 0.9% iv flush bag 20 mL, INTRAVENOUS, NEEDED, Starting on Gricel 08/01/24 at 0603, Until Gricel 08/15/24 at 1753, See admin instructions, If no compatible primary is already running, infuse NaCl 0.9% as primary to flush tubing after non-chemotherapy, non-immunotherapy intermittent infusions. Administer at the same rate as intermittent infusion. Select the Flush Bag file on smart pump. NaCl 0.9% iv infusion 50 mL/hr, INTRAVENOUS, CONTINUOUS, Starting on Mon08/02/24 at 0659, Until 08/03/24 at 0657 Rate Verify 08/02/2024 8:34 PM EDT 50 mL/hr 50 mL/hr New Bag/Syringe/Bottle 08/01/2024 7:00 AM EDT 50 mL/hr 5 0 mL/hr NaCl 0.9% iv infusion 50 mL/hr, INTRAVENOUS, CONTINUOUS, Starting on 08/03/24 at 0700, Until 08/03/24 at 1517 New Bag/Syringe/Bottle 08/03/2024 7:36 AM EDT 50 mL/hr 50 mL/hr NaCl 0.9% iv infusion 50 mL/hr, INTRAVENOUS, CONTINUOUS, Starting on Mon08/06/24 at 1500, Until Mon08/07/24 at 1254 New Bag/Syringe/Bottle 08/07/2024 12:04 PM EDT 50 mL/hr 50 mL/hr New Bag/Syringe/Bottle 08/06/2024 3:02 PM EDT 50 mL/hr 5 0 mL/hr oxyCODONE IR 2.5 mg tab(s) (ROXICODONE) 2.5 mg, ORAL, EVERY 6 HOURS NEEDED, Starting on Gricel 08/01/24 at 1233, Until Mon08/09/24 at 2142, Severe Pain (>/=7) - Enteral Given 08/07/2024 11:0 0 AM EDT 2.5 mg Given 08/05/2024 4:14 PM EDT 2.5 mg oxyCODONE IR 2.5 mg tab(s) (ROXICODONE) 2.5 mg, ORAL/FEEDING TUBE, EVERY 6 HOURS NEEDED, Starting on Mon08/09/24 at 2141, Until Mon08/15/24 at 1753, Severe Pain (>/=7) - Enteral Given 08/11/2024 10:12 PM EDT 2.5 mg Feeding Tube Given 08/09/2024 10:49 PM EDT 2.5 mg F eeding Tube pantoprazole 40 mg injection (PROTONIX) 40 mg, INTRAVENOUS, DAILY AT 6 AM, First dose on Gricel 08/01/24 at 0600, Until Discontinued, Reconstitute EACH 40 mg vial with 10 mL of NS. Administer IV push over 2-3 minutes. Protect From Light., Pharmacist may convert to oral formulation when CCHS criteria met: Yes Given 08/01/2024 5:59 AM EDT 40 m g pantoprazole 40 mg injection (PROTONIX) 40 mg, INTRAVENOUS, DAILY AT 6 AM, First dose on Mon08/03/24 at 0600, Until Discontinued, Reconstitute EACH 40 mg vial with 10 mL of NS. Administer IV push over 2-3 minutes. Protect From Light., Pharmacist may convert to oral formulation when CCHS criteria met: Yes Given 08/12/2024 5:46 AM EDT 40 m g Given 08/11/2024 6:02 AM EDT 40 mg Given 08/10/2024 5:24 AM EDT 40 mg pantoprazole 40 mg oral liquid (PROTONIX) 40 mg, ORAL/FEEDING TUBE, DAILY AT 6 AM, First dose on Mon08/13/24 at 0600, Until Discontinued, Refrigerate Given 08/15/2024 6:00 AM EDT 40 mg Feedi ng Tube Given 08/14/2024 5:23 AM EDT 40 mg Fe eding Tube Given 08/13/2024 6:00 AM EDT 40 mg Fe eding Tube PHENobarbital 65 mg injection 65 mg, INTRAVENOUS, EVERY 12 HOURS, 2 doses, First dose on Mon08/02/24 at 0000, Last dose on Mon08/02/24 at 0900 Given 08/02/2024 8:47 AM EDT 65 mg Given 08/02/2024 12:12 AM EDT 65 mg phosphorus 250 mg tab(s) (K PHOS NEUTRAL) 250 mg, ORAL, 2 TIMES DAILY, 2 doses, First dose on Gricel 08/08/24 at 1230, Last dose on Mon08/08/24 at 2100, Administer with 180 mL to 240 mL of water. Given 08/08/2024 9:04 PM EDT 250 mg Given 08/08/2024 1:16 PM EDT 250 mg potassium chloride 20 mEq oral powder (KLOR-CON) 20 mEq, ORAL, ONCE, 1 dose, On [place] 08/04/24 at 1200, Mix each packet with at least 4 ounces of water or other beverage just prior to administration. Given 08/04/2024 12:28 PM EDT 20 mEq potassium chloride 40 mEq oral powder (KLOR-CON) 40 mEq, ORAL, ONCE, 1 dose, On [place] 08/04/24 at 0800, Mix each packet with at least 4 ounces of water or other beverage just prior to administration. Given 08/04/2024 9:07 AM EDT 40 mEq potassium chloride iv piggyback 20 mEq/100 mL 20 mEq, INTRAVENOUS, at 50-100 mL/hr, Administer over 1-2 Hours, EVERY 1 HOUR, 3 doses, First dose on Gricel 08/01/24 at 0700, Last dose on Gricel 08/01/24 at 0900, NONCYTOTOXIC VESICANT If ordered with infusion rate range, start with maximum infusion rate and decrease rate if infusion is not tolerated New Bag/Syringe/Bottle 08/01/2024 8:53 AM EDT 20 mEq 100 mL/hr New Bag/Syringe/Bottle 08/01/2024 7:40 AM EDT 20 mEq 1 00 mL/hr New Bag/Syringe/Bottle 08/01/2024 6:18 AM EDT 20 mEq 1 00 mL/hr propofol infusion (DIPRIVAN) 5-50 mcg/kg/min 63.5 kg (1.905-19.05 mL/hr, rounded to 1.91-19.05 mL/hr), INTRAVENOUS, CONTINUOUS, Starting on Mon07/31/24 at 0700, Until Mon07/31/24 at 1145, TITRATE TO A RASS OF 0 to (-2) STARTING DOSE - 15 mcg/kg/min, titrate by 5 mcg/kg/min every 5 mins If SBP drops below 90, decrease rate by 50% and notify MD If spontaneous awakening trial (SAT) indicated, turn infusion off and monitor. If SAT failure or patient's pain score is above goal, then re-start at one-half of the previous dose and titrate to RASS or pain score goal (as ordered above). EXPIRES 12 HOURS AFTER OPENED OR SPIKED Rate/Dose Change 07/31/2024 10:13 AM EDT 5 mcg/kg/min 1.91 mL/hr Rate/Dose Change 07/31/2024 10:06 AM EDT 10 mcg/kg/min 3.8 1 mL/hr Rate/Dose Change 07/31/2024 8:36 AM EDT 5 mcg/kg/min 1.91 mL/hr propofol infusion (DIPRIVAN) 5-60 mcg/kg/min 63.5 kg (1.905-22.86 mL/hr, rounded to 1.91-22.86 mL/hr), INTRAVENOUS, CONTINUOUS, Starting on Mon07/31/24 at 1200, Until Gricel 08/01/24 at 0729, Titrate to a RASS of 0 to -2 (light sedation). Start at 5-10 mcg/kg/min or continue at current infusion rate. Titrate by 2-5 mcg/kg/min every 2-5 minutes. Contact LIP if dose adjusted by more than 20 mcg/kg/min within 30 minutes. If spontaneous awakening trial (SAT) indicated, turn infusion off and monitor for SAT failure. If patient fails SAT per protocol, then re-start at one-half of the previous dose and titrate to RASS goal. EXPIRES 12 HOURS AFTER OPENED OR SPIKED New Bag/Syringe/Bottle 07/31/2024 12:06 PM EDT 5 mcg/kg/min 1.91 mL/hr QUEtiapine 25 mg tab(s) (SEROquel) 25 mg, ORAL, AT BEDTIME, First dose (after last reorder) on Gricel 08/01/24 at 2100, Until Discontinued, 50 MG Given 08/01/2024 8:08 PM EDT 25 mg QUEtiapine 50 mg tab(s) (SEROquel) 50 mg, ORAL, AT BEDTIME, First dose on Mon08/05/24 at 2100, Until Discontinued Given 08/08/2024 9:04 PM EDT 50 mg Given 08/07/2024 8:51 PM EDT 50 mg Given 08/06/2024 8:24 PM EDT 50 mg QUEtiapine 50 mg tab(s) (SEROquel) 50 mg, ORAL/FEEDING TUBE, AT BEDTIME, First dose (after last modification) on Mon08/09/24 at 2230, Until Discontinued Given 08/14/2024 9:26 PM EDT 50 mg Feeding Tube Given 08/13/2024 10:34 PM EDT 50 mg F eeding Tube Given 08/12/2024 9:19 PM EDT 50 mg Fe eding Tube rosuvastatin 20 mg tab(s) (CRESTOR) 20 mg, NASOGASTRIC, DAILY, First dose (after last modification) on Mon08/04/24 at 0900, Until Discontinued Given 08/15/2024 9:03 AM EDT 20 mg Given 08/14/2024 9:26 AM EDT 20 mg Given 08/13/2024 8:45 AM EDT 20 mg sacubitril-valsartan 24-26 mg 1 tablet (ENTRESTO) 1 tablet, ORAL, 2 TIMES DAILY, First dose on Mon08/05/24 at 1000, Until Discontinued Given 08/09/2024 9:36 AM EDT 1 tablet Given 08/08/2024 9:04 PM EDT 1 tablet Given 08/08/2024 8:37 AM EDT 1 tablet sacubitril-valsartan 24-26 mg 1 tablet (ENTRESTO) 1 tablet, ORAL/FEEDING TUBE, 2 TIMES DAILY, First dose (after last modification) on Mon08/09/24 at 2230, Until Discontinued Given 08/15/2024 9:03 AM EDT 1 tablet Feeding Tube Given 08/14/2024 9:26 PM EDT 1 tablet Fe eding Tube Given 08/14/2024 9:26 AM EDT 1 tablet Fe eding Tube sodium chloride 1 g soluble tab(s) 1 g, [place]PA[place], 3 TIMES DAILY, 6 doses, First dose (after last modification) on Mon08/05/24 at 1000, Last dose on Mon08/06/24 at 2000 Given 08/06/2024 8:24 PM EDT 1 g Given 08/06/2024 2:00 PM EDT 1 g Given 08/06/2024 9:49 AM EDT 1 g sodium chloride 1 g soluble tab(s) 1 g, ORAL/FEEDING TUBE, 3 TIMES DAILY, First dose on Mon08/07/24 at 1000, Until Discontinued Given 08/07/2024 10:00 AM EDT 1 g Feeding Tube sodium chloride 1 g soluble tab(s) 1 g, ORAL/FEEDING TUBE, 3 TIMES DAILY, First dose (after last modification) on Mon08/09/24 at 2000, Until Discontinued Given 08/12/2024 1:43 PM EDT 1 g Feeding Tube Given 08/12/2024 8:28 AM EDT 1 g Fe eding Tube Given 08/11/2024 10:04 PM EDT 1 g F eeding Tube sodium chloride 1 g soluble tab(s) 1 g, ORAL/FEEDING TUBE, 2 TIMES DAILY, First dose (after last modification) on Mon08/12/24 at 2100, Until Discontinued Given 08/13/2024 8:45 AM EDT 1 g Feeding Tube Given 08/12/2024 9:19 PM EDT 1 g Fe eding Tube sodium chloride 2 g soluble tab(s) 2 g, ORAL/FEEDING TUBE, 3 TIMES DAILY, First dose (after last modification) on Mon08/07/24 at 1400, Until Discontinued Given 08/08/2024 8:37 AM EDT 2 g Feeding Tube Given 08/07/2024 8:51 PM EDT 2 g Fe eding Tube Given 08/07/2024 2:00 PM EDT 2 g Fe eding Tube sodium chloride 3 g soluble tab(s) 3 g, ORAL/FEEDING TUBE, 3 TIMES DAILY, First dose (after last modification) on Mon08/08/24 at 1400, Until Discontinued Given 08/09/2024 2:35 PM EDT 3 g Feeding Tube Given 08/09/2024 9:36 AM EDT 3 g Fe eding Tube Given 08/08/2024 9:04 PM EDT 3 g Fe eding Tube sodium phosphate 15 mmol in D5W 250 mL 15 mmol, INTRAVENOUS, at 41.67-62.5 mL/hr, Administer over 4-6 Hours, ONCE, 1 dose, On 08/03/24 at 1530, 3 mmol of PHOSPHATE = 4 mEq of SODIUM - Refrigerate If ordered with infusion rate range, start with maximum infusion rate and decrease rate if infusion is not tolerated New Bag/Syringe/Bottle 08/03/2024 3:48 PM EDT 15 mmol 62 mL/hr spironolactone 12.5 mg tab(s) (ALDACTONE) 12.5 mg, ORAL, DAILY, First dose on 08/05/24 at 1000, Until Discontinued, Hazardous Potential Reproductive Risk Drug: Use appropriate PPE. Given 08/15/2024 9:03 AM EDT 12.5 mg Given 08/14/2024 9:26 AM EDT 12.5 mg Given 08/13/2024 8:45 AM EDT 12.5 mg thiamine 100 mg injection 100 mg, INTRAVENOUS, 3 TIMES DAILY, 15 doses, First dose on Mon08/03/24 at 0800, Last dose on Mon08/07/24 at 2000 Given 08/07/2024 8:51 PM EDT 100 mg Given 08/07/2024 1:48 PM EDT 100 mg Given 08/07/2024 8:52 AM EDT 100 mg thiamine 100 mg tab(s) (VITAMIN B1) 100 mg, ORAL, DAILY, First dose on Gricel 08/08/24 at 0900, Until Discontinued Given 08/09/2024 9:36 AM EDT 100 mg Given 08/08/2024 8:37 AM EDT 100 mg thiamine 100 mg tab(s) (VITAMIN B1) 100 mg, ORAL/FEEDING TUBE, DAILY, First dose (after last modification) on 08/10/24 at 0900, Until Discontinued Given 08/15/2024 9:03 AM EDT 100 mg Feeding Tube Given 08/14/2024 9:26 AM EDT 100 mg Fe eding Tube Given 08/13/2024 8:45 AM EDT 100 mg Fe eding Tube thiamine 200 mg injection 200 mg, INTRAVENOUS, EVERY 8 HOURS, 9 doses, First dose on Mon08/02/24 at 0000, Last dose on Mon08/04/24 at 1400 Given 08/02/2024 5:32 AM EDT 200 mg Given 08/02/2024 12:12 AM EDT 200 mg urea 15 g oral powder (URE-NA) 15 g, ORAL/FEEDING TUBE, DAILY, First dose on 08/07/24 at 1000, Until Discontinued, Mix each 15 gram packet with 3-4 ounces of water prior to administration. Given 08/08/2024 8:39 AM EDT 15 g Feeding Tube Given 08/07/2024 10:36 AM EDT 15 g F eeding Tube urea 15 g oral powder (URE-NA) 15 g, ORAL/FEEDING TUBE, DAILY, First dose (after last modification) on Mon08/10/24 at 0900, Until Discontinued, Mix each 15 gram packet with 3-4 ounces of water prior to administration. Given 08/13/2024 8:45 AM EDT 15 g Feeding Tube Given 08/12/2024 8:30 AM EDT 15 g Fe eding Tube Given 08/11/2024 9:32 AM EDT 15 g Fe eding Tube urea 30 g oral powder (URE-NA) 30 g, ORAL/FEEDING TUBE, DAILY, First dose (after last modification) on Mon08/09/24 at 0900, Until Discontinued, Mix each 15 gram packet with 3-4 ounces of water prior to administration. Given 08/09/2024 10:52 AM EDT 30 g Feeding Tube documented in this encounter Active and Recently Administered Medications Times are shown in EDT. Scheduled Medication Order 08/13/2024 08/14/2024 08/15/2024 cefTRIAXone iv piggyback 1 g in dextrose (iso-osmotic) 50 mL (ROCEPHIN) (COMPLETED) 1 g, INTRAVENOUS, at 100 mL/hr, Administer over 30 Minutes, EVERY 24 HOURS, 1 dose, First dose (after last modification) on Mon08/13/24 at 0900, DO product = Refrigerate. B. Ferguson DUPLEX product = Room Temp., Antimicrobial indication: Empiric, Infectious source(s): Urinary/renal, Pharmacist may modify dose per [facility] dose optimization consult agreement: Yes 0845 (New Bag/Syringe/Bottle - Provider: Radha Vigil RN)0915 (Infusion Complete - Provider: Radha Vigil RN) folic acid 1 mg tab(s) 1 mg, ORAL/FEEDING TUBE, DAILY, First dose on Mon08/04/24 at 1500, Until Discontinued 0845 (Given - Provider: Radha Vigil RN) 09 (Given - Provider: Heavenly Espinosa RN) 09 (Given - Provider: Kaylin Padilla RN) heparin 5,000 Units injection 5,000 Units, SUBCUTANEOUS, EVERY 12 HOURS, First dose on Mon08/02/24 at 1030, Until Discontinued 0845 (Given - Provider: Radha Vigil RN)2234 (Given - Provider: Kimberly Quiroga RN) 09 (Given - Provider: Heavenly Espinosa RN)212 (Given - Provider: Chichi Gomez RN) 0903 (Given - Provider: Kaylin Padilla, RN) insulin lispro injection (rapid acting) (ADMElog) SUBCUTANEOUS, EVERY 6 HOURS, First dose on Mon08/02/24 at 1500, Until Discontinued, ADMINISTER CORRECTIONAL INSULIN REGARDLESS OF MEAL OR NUTRITION INTAKE Scale 2 If Blood Glucose (mg/dL) is: Less than 110 Give 0 units 111-150 Give 0 units 151-200 Give 2 units 201-250 Give 4 units 251-300 Give 6 units 301-350 Give 8 units 351-400 Give 10 units Greater than 400 Give 10 units and Notify Provider Notify provider if 2 consecutive blood glucose values in the previous 24 hours are greater than 250 mg/dL and there have been no changes to the insulin regimen in the previous 24 hours. 0000 (Given - Provider: Chichi Gomez RN)0600 (Not Given - Provider: Chichi Gomez RN - Reason: Lab/Clinical Condition Not Within parameters)1200 (Not Given - Provider: Radha Vigil RN - Reason: Lab/Clinical Condition Not Within parameters)1800 (Not Given - Provider: Radha Vigil RN - Reason: Lab/Clinical Condition Not Within parameters) 0010 (Given - Provider: Kimberly Quiroga RN)0525 (Given - Provider: Kimberly Quiroga RN)1212 (Given - Provider: Heavenly Espinosa RN - Comment: 157)1714 (Not Given - Provider: Heavenly Espinosa RN - Reason: Lab/Clinical Condition Not Within parameters - Comment: 135) 0000 (Given - Provider: Chichi Gomez RN)0600 (Given - Provider: Chichi Gomez RN)1223 (Given - Provider: Kaylin Padilla RN) magnesium sulfate iv piggyback in sterile water 2 g 50 mL (COMPLETED) 2 g, INTRAVENOUS, at 25 mL/hr, Administer over 2 Hours, ONCE, 1 dose, On Mon08/13/24 at 0830, Magnesium sulfate iv bolus will be infused at a rate of 1 gram/hr The following nursing units may administer 2 g dose over 1 hour if necessary: ICUs/PACU/ED, Adult Hematology/Oncology, Labor and Delivery, Cardiac Stepdown, Headache Clinic If necessary, a magnesium sulfate bolus may be administered greater than 2 g/hr for the following indications: Adult and Pediatric Asthma Exacerbations, [place], Pediatric BMT and Hematology/Oncology, Eclampsia or Preeclampsia 0915 (New Bag/Syringe/Bottle - Provider: Radha Vigil RN)1115 (Infusion Complete - Provider: Radha Vigil RN) metoprolol tartrate (short acting) 25 mg tab(s) (LOPRESSOR) 25 mg, ORAL/FEEDING TUBE, EVERY 12 HOURS, First dose (after last modification) on Mon08/09/24 at 2230, Until Discontinued, hold for systolic <120 and heart rate <60 BPM 0845 (Given - Provider: Radha Vigil RN)2100 (Not Given - Provider: Kimberly Quiroga RN - Reason: Held Because HR/BP Not Within Ordered Limits) 0900 (Not Given - Provider: Heavenly Espinosa RN - Reason: Held Because HR/BP Not Within Ordered Limits)2125 (Given - Provider: Chichi Gomez RN) 0857 (Not Given - Provider: Kaylin Padilla RN - Reason: Held Because HR/BP Not Within Ordered Limits) pantoprazole 40 mg oral liquid (PROTONIX) 40 mg, ORAL/FEEDING TUBE, DAILY AT 6 AM, First dose on Mon08/13/24 at 0600, Until Discontinued, Refrigerate 0600 (Given - Provider: Chichi Gomez RN) 0523 (Given - Provider: Kimberly Quiroga RN) 0600 (Given - Provider: Chichi Gomez, JYOTI) QUEtiapine 50 mg tab(s) (SEROquel) 50 mg, ORAL/FEEDING TUBE, AT BEDTIME, First dose (after last modification) on Mon08/09/24 at 2230, Until Discontinued 2233 (Given - Provider: Kimberly Quiroga RN) 2125 (Given - Provider: Chichi Gomez RN) rosuvastatin 20 mg tab(s) (CRESTOR) 20 mg, NASOGASTRIC, DAILY, First dose (after last modification) on Mon08/04/24 at 0900, Until Discontinued 0845 (Given - Provider: Radha Vigil RN) 925 (Given - Provider: Heavenly Espinosa RN) 902 (Given - Provider: Kaylin Padilla, JYOTI) sacubitril-valsartan 24-26 mg 1 tablet (ENTRESTO) 1 tablet, ORAL/FEEDING TUBE, 2 TIMES DAILY, First dose (after last modification) on Mon08/09/24 at 2230, Until Discontinued 0845 (Given - Provider: Radha Vigil RN)2233 (Given - Provider: Kimberly Quiroga, JYOTI) 925 (Given - Provider: Heavenly Espinosa RN)2125 (Given - Provider: Chichi Gomez RN) 902 (Given - Provider: Kaylin Padilla, JYOTI) sodium chloride 1 g soluble tab(s) (CANCELED) 1 g, ORAL/FEEDING TUBE, 2 TIMES DAILY, First dose (after last modification) on Mon08/12/24 at 2100, Until Discontinued 0845 (Given - Provider: Radha Vigil RN) spironolactone 12.5 mg tab(s) (ALDACTONE) 12.5 mg, ORAL, DAILY, First dose on Mon08/05/24 at 1000, Until Discontinued, Hazardous Potential Reproductive Risk Drug: Use appropriate PPE. 0845 (Given - Provider: Radha Vigil RN) 925 (Given - Provider: Heavenly Espinosa RN) 902 (Given - Provider: Kaylin Padilla, JYOTI) thiamine 100 mg tab(s) (VITAMIN B1) 100 mg, ORAL/FEEDING TUBE, DAILY, First dose (after last modification) on Mon08/10/24 at 0900, Until Discontinued 0845 (Given - Provider: Radha Vigil RN) 925 (Given - Provider: Heavenly Espinosa RN) 902 (Given - Provider: Kaylin Padilla, JYOTI) urea 15 g oral powder (URE-NA) (CANCELED) 15 g, ORAL/FEEDING TUBE, DAILY, First dose (after last modification) on 08/10/24 at 0900, Until Discontinued, Mix each 15 gram packet with 3-4 ounces of water prior to administration. 0845 (Given - Provider: Radha Vigil, RN) 0900 (Not Given - Provider: Heavenly Espinosa RN - Reason: Based on RT/Nurses Assessment, LIP Notified - Comment: order dc) PRN Medication Order 08/13/2024 08/14/2024 08/15/2024 acetaminophen 650 mg tab(s) (TYLENOL) 650 mg, ORAL/FEEDING TUBE, EVERY 6 HOURS NEEDED, Starting on Mon08/09/24 at 2141, Until Gricel 08/15/24 at 1753, Mild Pain (1-3) - Enteral, Moderate Pain (4-6) - Enteral, If ordered PRN for pain, patient/guardian may elect to receive this medication for higher pain levels INSTEAD of the opioid, if preferred: Yes 0850 (Given - Provider: Radha Vigil RN) 1211 (Given - Provider: Heavenly Espinosa RN)2126 (Given - Provider: Chichi Gomez RN) dextrose 10% iv bolus(Linked Group 1) 125 mL (12.5 g), INTRAVENOUS, at 750 mL/hr, Administer over 10 Minutes, NEEDED, Starting on Mon07/31/24 at 1203, Until Gricel 08/15/24 at 1753, low blood sugar, Use when blood glucose is less than 70 mg/dL (60 mg/dL if ) and patient has IV access Program on smart pump using dextrose 10% bolus file - NONCYTOTOXIC VESICANT - dextrose 40 % 15 g(Linked Group 1) 15 g, ORAL, NEEDED, Starting on Mon07/31/24 at 1203, Until Gricel 08/15/24 at 1753, low blood sugar, Use when blood glucose is less than 70 mg/dL (60 mg/dL if ) and patient demonstrates diminished level of consciousness but is able to swallow without risk of aspiration Each 37.5 gram TUBE of dextrose 40% oral gel delivers a DOSE = 15 GRAMS of CARBOHYDRATE --- Administer ONLY if the patient is awake/alert and able to swallow. glucagon 1 mg injection(Linked Group 1) 1 mg, INTRAMUSCULAR, NEEDED, Starting on Mon07/31/24 at 1203, Until Gricel 08/15/24 at 1753, low blood sugar, Use when blood glucose is less than 70 mg/dL (60 mg/dL if ) and patient has no IV access NaCl 0.9% iv flush bag 20 mL, INTRAVENOUS, NEEDED, Starting on Gricel 08/01/24 at 0603, Until Mon08/15/24 at 1753, See admin instructions, If no compatible primary is already running, infuse NaCl 0.9% as primary to flush tubing after non-chemotherapy, non-immunotherapy intermittent infusions. Administer at the same rate as intermittent infusion. Select the Flush Bag file on smart pump. ondansetron 4 mg tab(s) (ZOFRAN)(Linked Group 2) 4 mg, ORAL, EVERY 6 HOURS NEEDED, Starting on Mon07/31/24 at 1145, Until Mon08/15/24 at 1753, Nausea/Vomiting - First Line - Enteral, Use when patient is able to take medications by mouth. oxyCODONE IR 2.5 mg tab(s) (ROXICODONE) 2.5 mg, ORAL/FEEDING TUBE, EVERY 6 HOURS NEEDED, Starting on Mon08/09/24 at 2141, Until Mon08/15/24 at 1753, Severe Pain (>/=7) - Enteral Linked Groups Order Group 1: dextrose 40 % 15 gJump to med 15 g, ORAL, NEEDED, Starting on Mon07/31/24 at 1203, Until Gricel 08/15/24 at 1753, low blood sugar, Use when blood glucose is less than 70 mg/dL (60 mg/dL if ) and patient demonstrates diminished level of consciousness but is able to swallow without risk of aspiration Each 37.5 gram TUBE of dextrose 40% oral gel delivers a DOSE = 15 GRAMS of CARBOHYDRATE --- Administer ONLY if the patient is awake/alert and able to swallow. Or glucagon 1 mg injectionJump to med 1 mg, INTRAMUSCULAR, NEEDED, Starting on Mon07/31/24 at 1203, Until Gricel 08/15/24 at 1753, low blood sugar, Use when blood glucose is less than 70 mg/dL (60 mg/dL if ) and patient has no IV access Or dextrose 10% iv bolusJump to med 125 mL (12.5 g), INTRAVENOUS, at 750 mL/hr, Administer over 10 Minutes, NEEDED, Starting on Mon07/31/24 at 1203, Until Gricel 08/15/24 at 1753, low blood sugar, Use when blood glucose is less than 70 mg/dL (60 mg/dL if ) and patient has IV access Program on smart pump using dextrose 10% bolus file - NONCYTOTOXIC VESICANT - Group 2: ondansetron 4 mg tab(s) (ZOFRAN)Jump to med 4 mg, ORAL, EVERY 6 HOURS NEEDED, Starting on 07/31/24 at 1145, Until Gricel 08/15/24 at 1753, Nausea/Vomiting - First Line - Enteral, Use when patient is able to take medications by mouth. Or ondansetron (PF) 4 mg injection (ZOFRAN) (CANCELED) 4 mg, INTRAVENOUS, EVERY 6 HOURS NEEDED, Starting on 07/31/24 at 1145, Until 08/14/24 at 1521, Nausea/Vomiting - First Line - Parenteral, Give IV push over 2 minutes. Use when patient unable to take medications by mouth. documented in this encounter Care Teams Hotbed Operator Relationship Specialty Start Date End Date Oswaldo Turpin [address] [place] [id number] PCP - General Family Medicine 04/11/22 Enoch Aguirre [address] [place] [address] [address] [place] [address] General Surgery 01/05/22 Dione Montoya DO [address] [place] [address] [address] [place] [address] Referring Gastroenterology 09/30/23 documented as of this encounter
[2024-08-24] VITALS (47 sets, daily range): BP systolic 76–136; BP diastolic 44–86; PULSE 85–131; TEMP 36.2–36.9; O2SAT 86–100; BMI 19.8; BMI 20.1
--- NOTE | 2024-08-24 13:43 | ECG_ITS ---
[facility] Test Date: 2024-08-24 Pat Name: SARAY CLEMONS Department: Room: - Gender: Male Keno Writer: : [id number] Requested By: [id number] Order Number: [id number] Alejandra MD: LAKEISHA HERNANDES M.D. Measurements Intervals [place] Rate: 102 P: 32 [place]: 138 QRS: -58 QRSD: 92 T: 116 QT: 420 QTc: 478 Interpretive Statements 1120 Sinus tachycardia 2630 Left anterior fascicular block 3114 Cannot rule out anterior myocardial infarction, age undetermined 4564 Twave abnormality, possible lateral ischemia 5233 Voltage criteria for LVH 9150 abnormal ECG No previous ECG available for comparison Electronically Signed On 08-25-2024 21:55:34 EDT by LAKEISHA HERNANDES M.D.
[2024-08-24] MEDS: 0.9 % SODIUM CHLORIDE 1,000 ML 1000 ML IV ×2 (14:04→16:45)
[2024-08-24 14:07] LABS: Basophils Percent Auto 0.3 % (0.2-2.0); Eosinophils Percent Auto 0.3 % (0.9-7.0); Hematocrit 26.6 % (42.0-54.0); Hemoglobin 8.1 g/dL (14.0-18.0); Immature Granulocytes Abs Auto 0.03 10^3/uL (0.00-0.03); Immature Granulocytes Pct Auto 0.3 % (0.0-0.5); Lymphocytes Absolute Auto 2.1 10^3/uL (1.2-3.8); Lymphocytes Percent Auto 23.9 % (20.5-60.0); Mean Corpuscular HGB Conc 30.5 g/dL (29.9-35.2); Mean Corpuscular Hemoglobin 21.8 pg (25.9-34.0); Mean Corpuscular Volume 71.5 fL (80.0-94.0); Mean Platelet Volume 10.2 fL (9.5-13.5); Monocytes Absolute Auto 1.1 10^3/uL (0.3-0.8); Monocytes Percent Auto 12.8 % (1.7-12.0); Neutrophils Absolute Auto 5.5 10^3/uL (1.4-6.5); Neutrophils Percent Auto 62.4 % (43.0-75.0); Platelet Count 451 10^3/uL (150-450); Red Blood Count 3.72 10^6/uL (4.70-6.10); White Blood Count 8.8 10^3/uL (4.0-11.0)
[2024-08-24 14:21] LABS: INR 1.19; Partial Thromboplastin Time 24.5 sec (22.3-36.2); Prothrombin Time 12.4 sec (9.0-11.6)
[2024-08-24 14:28] LABS: Alanine Aminotransferase 43 U/L (16-63); Albumin Globulin Ratio 0.8; Albumin Level 3.1 g/dL (3.4-5.0); Alkaline Phosphatase 114 U/L (46-116); Anion Gap 18.5; Aspartate Amino Transferase 23 U/L (15-37); BUN Creatinine Ratio 13.6; Bilirubin Total 0.4 mg/dL (0.2-1.0); Calcium 7.7 mg/dL (8.5-10.1); Carbon Dioxide 23.1 mmol/L (21.0-32.0); Chloride 97 mmol/L (98-107); Estimated GFR (African America >60 (>=60 mL/min/1.73m^2); Estimated GFR (Non-African Ame >60 (>=60 mL/min/1.73m^2); Globulin 3.7 g/dL; Glucose 116 mg/dL (74-106); Sodium 136 mmol/L (136-145); Total Protein 6.8 g/dL (6.4-8.2); Troponin I High Sensitivity 22.1 pg/mL (4.0-76.1)
[2024-08-24 14:30] LABS: Lactate/Lactic Acid 4.9 mmol/L (0.4-2.0)
[2024-08-24 14:31] LABS: Potassium 2.6 mmol/L (3.5-5.1)
--- OUTSIDE RECORDS SUMMARY | 2024-08-24 14:45 | XMS_ITS | Encounter Summary ---
Author Organization [employer] Address [id number] [address] [place] [address] Care Team Providers Care Elevator Troubleshooter Name Role Phone Oswaldo Turpin Primary Care Provider [phone] Encounter Details Date Type Department Care Team ([facility] Contact Info) Description 08/24/2024 2:45 PM EDT Ancillary Procedure [facility] [place] [address] Pain Social History Tobacco Use Types Packs/Day Years Used Date Smoking Tobacco: Every Day Cigarettes 2 25 Comments:smokes 3-4 cigarret es occasionally at [facility] Childcare Answer Date Recorded Childcare Unknown 08/13/2018 Employment Answer Date Recorded Employment Unknown 08/13/2018 Sex and Gender Information Value Date Recorded Sex Assigned at Not on file Legal Sex Male 4:32 PM EDT Gender Identity Not on file Sexual Orientation Not on file documented as of this encounter Plan of Treatment Not on file documented as of this encounter Goals Goal Patient Goal Type Associated Problems Recent Progress Patient-Stated? Author SNF return General Yes Swetha Yi LSW Note: Evaluation of progress towards goal: Per phone conversation with pt spouse plan is to return to [facility] [place]. documented as of this encounter Procedures Procedure Name Priority Date/Time Associated Diagnosis Comments CT BRAIN WO CONT Routine 08/24/2024 2:45 PM EDT Pain documented in this encounter Results * CT brain without contrast (08/24/2024 2:45 PM EDT) us Scanning Provider External IMG CT ORDERABLES Fin al Result documented in this encounter Visit Diagnoses Diagnosis Pain Generalized pain documented in this encounter Care Teams Elevator Troubleshooter Relationship Specialty Start Date End Date Oswaldo Turpin DO [address] [place] [address] PCP - General Family Medicine 10/03/21 08/25/24 documented as of this encounter
--- NOTE | 2024-08-24 14:51 | ED.GENADUL1 ---
HPI HPI - General Adult General Chief complaint: Shortness of Breath/Dyspnea Stated complaint: ALTERED MENTAL STATUS Time Seen by Provider: 08/24/24 13:33 Source: patient Mode of arrival: ambulance Limitations: no limitations History of Present Illness HPI narrative: 63-year-old male to the emergency department chief complaint of feeling unwell. He arrives via EMS from custodial. He is unable to provide little recent history other than he was hospitalized at [facility] following a brain bleed. assisted reports that he had an increased heart rate, seemed confused, and had a low blood pressure today. Patient denies any specific symptoms. Past medical history: Alcohol use disorder, cards, congestive heart failure, CAD, GERD, depression, seizure Past surgical history: Cholecystectomy, EGD, tracheostomy Related Data Home Medications ?Medication ?Instructions ?Recorded ?Confirmed acetaminophen 325 mg capsule 650 mg PO Q6H PRN fever or pain 08/24/24 08/24/24 atorvastatin 40 mg tablet 20 mg PO DAILY 08/24/24 08/24/24 dapagliflozin propanediol 10 mg 10 mg PO DAILY 08/24/24 08/24/24 tablet fluconazole 100 mg tablet 100 mg PO DAILY 08/24/24 08/24/24 (Diflucan) folic acid 1 mg tablet 1 mg PO DAILY 08/24/24 08/24/24 heparin (porcine) 5,000 unit/mL (1 5,000 unit subcut Q12H 08/24/24 08/24/24 mL) injection cartridge insulin lispro 100 unit/mL subcut 08/24/24 subcutaneous pen metoprolol tartrate 25 mg tablet 25 mg PO BID 08/24/24 08/24/24 nitroglycerin 0.4 mg sublingual 0.4 mg sublingual Q5M PRN chest 08/24/24 08/24/24 tablet pain ondansetron HCl 4 mg tablet 4 mg PO Q6H PRN nausea and vomiting 08/24/24 08/24/24 pantoprazole 40 mg tablet,delayed 40 mg PO DAILY 08/24/24 08/24/24 release quetiapine 50 mg tablet 50 mg PO DAILY 08/24/24 08/24/24 sacubitril 24 mg-valsartan 26 mg 1 tab PO BID 08/24/24 08/24/24 tablet (Entresto) spironolactone 25 mg tablet 12.5 mg PO DAILY 08/24/24 08/24/24 (Aldactone) thiamine HCl (vitamin B1) 100 mg 100 mg PO DAILY 08/24/24 08/24/24 capsule Allergies Allergy/AdvReac Type Severity Reaction Status Date / Time No Known Drug Allergies Allergy Verified 08/24/24 13:38 Review of Systems ROS Status of ROS 10 or more systems reviewed and unremarkable except as noted in history and below Exam Narrative Exam Narrative: VITALS: I have reviewed the triage vital signs. GENERAL: Unwell appearing adult male. NEURO: Alert and oriented x3. Moves all extremities. Face is symmetric and expressive. NIHSS 0. EYES: PERRL. No scleral icterus or conjunctival injection. No discharge. HENT: Normocephalic, atraumatic. Hearing is grossly intact. Nares grossly patent and without discharge. Mucous membranes dry. NECK: No JVD. Patient moves neck without restriction. CARDIO: Rhythm regular. Normal rate. No murmur, rub, or gallop. Pulses equal bilaterally in the upper and lower extremity. No lower extremity edema. PULM: Lungs clear to auscultation in all gutierrez. No wheezes, rales, or rhonchi. No conversational dyspnea. No splinting, stridor, or accessory muscle use. GI/: Abdomen is soft and non-tender. Normoactive bowel sounds. EXTREMITIES: Symmetric muscle bulk. No joint swelling. No clubbing, cyanosis, or deformity. SKIN: Warm and dry. Normal turgor. No rash or lesions appreciated. PSYCH: Mood, affect, and interaction is appropriate to the setting. Constitutional Vital Signs, click to edit/add: Last Vital Signs Temp 97.7 F 08/24/24 13:34 Pulse 93 H 08/24/24 14:15 Resp 18 08/24/24 14:15 BP 123/71 08/24/24 14:15 Pulse Ox 91 L 08/24/24 13:40 O2 Del Method Nasal Cannula 08/24/24 13:39 O2 Flow Rate 2 08/24/24 13:39 Course Vital Signs Vital signs: Vital Signs Temperature 97.7 F 08/24/24 13:34 Pulse Rate 105 H 08/24/24 13:34 Respiratory Rate 28 H 08/24/24 13:34 Blood Pressure 76/55 L 08/24/24 13:34 Pulse Oximetry 86 L 08/24/24 13:34 Oxygen Delivery Method Room Air 08/24/24 13:34 Temperature 97.7 F 08/24/24 13:34 Pulse Rate 93 H 08/24/24 14:15 Respiratory Rate 18 08/24/24 14:15 Blood Pressure 123/71 08/24/24 14:15 Pulse Oximetry 91 L 08/24/24 13:40 Oxygen Delivery Method Nasal Cannula 08/24/24 13:39 Oxygen Delivery Flow Rate 2 08/24/24 13:39 Medical Decision Making MDM Narrative Medical decision making narrative: 63-year-old male to the emergency department with chief complaint of feeling unwell, abnormal vitals. Upon arrival he is hypotensive, tachycardic and has a new oxygen requirement of 2 L. Little information could be obtained about his recent medical history. Patient has no specific complaints. Recent medical history reviewed via [employer]: Patient was transferred from [facility] to [facility] on 07/31 after a fall that resulted in a traumatic subarachnoid hemorrhage. He was [facility] home from [facility]. He was intubated during his hospital course, developed refeeding syndrome secondary to severe protein calorie duration and tube feeds. 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 Medical Records Medical records reviewed: Yes I reviewed the patient's medical records Lab Data Lab results reviewed: Yes I reviewed the patient's lab results Labs: Lab Results 08/24/24 Range/Units 13:55 WBC 8.8 (4.0-11.0) 10^3/uL RBC 3.72 L (4.70-6.10) 10^6/uL Hgb 8.1 L (14.0-18.0) g/dL Hct 26.6 L (42.0-54.0) % MCV 71.5 L (80.0-94.0) fL MCH 21.8 L (25.9-34.0) pg MCHC 30.5 (29.9-35.2) g/dL RDW 20.0 H (11.0-15.0) % Plt Count 451 H (150-450) 10^3/uL MPV 10.2 (9.5-13.5) fL Neut % (Auto) 62.4 (43.0-75.0) % Lymph % (Auto) 23.9 (20.5-60.0) % [place] % (Auto) 12.8 H (1.7-12.0) % Eos % (Auto) 0.3 L (0.9-7.0) % Baso % (Auto) 0.3 (0.2-2.0) % Neut # (Auto) 5.5 (1.4-6.5) 10^3/uL Lymph # (Auto) 2.1 (1.2-3.8) 10^3/uL [place] # (Auto) 1.1 H (0.3-0.8) 10^3/uL Eos # (Auto) 0.0 (0.0-0.7) 10^3/uL Baso # (Auto) 0.0 (0.0-0.1) 10^3/uL Abs Immat Gran (auto) 0.03 (0.00-0.03) 10^3/uL Imm/Tot Granulo (auto) 0.3 (0.0-0.5) % PT 12.4 H (9.0-11.6) sec INR 1.19 APTT 24.5 (22.3-36.2) sec Sodium 136 (136-145) mmol/L Potassium 2.6 L* (3.5-5.1) mmol/L Chloride 97 L (98-107) mmol/L Carbon Dioxide 23.1 (21.0-32.0) mmol/L Anion Gap 18.5 BUN 14.0 (7.0-18.0) mg/dL Creatinine 1.03 (0.70-1.30) mg/dL Est GFR ( Amer) >60 (>=60 mL/min/1.73m^2) Est GFR (Non-Af Amer) >60 (>=60 mL/min/1.73m^2) BUN/Creatinine Ratio 13.6 Glucose 116 H (74-106) mg/dL Lactate 4.9 H* (0.4-2.0) mmol/L Calcium 7.7 L (8.5-10.1) mg/dL Total Bilirubin 0.4 (0.2-1.0) mg/dL AST 23 (15-37) U/L ALT 43 (16-63) U/L Alkaline Phosphatase 114 (46-116) U/L Troponin I High Sens 22.1 (4.0-76.1) pg/mL NT-Pro-B Natriuret Pep 396.0 (<=900.0) pg/mL Total Protein 6.8 (6.4-8.2) g/dL Albumin 3.1 L (3.4-5.0) g/dL Globulin 3.7 g/dL Albumin/Globulin Ratio 0.8 ECG Data Attestation: I personally reviewed and interpreted this ECG as follows: (Sinus tachycardia at a rate of 102. No STEMI. Mildly prolonged QTc at 478. ) Critical Care Time Critical Care Time Critical Care Time: Yes Total Critical Care Time: 45 Attestation: Critical Care Procedure Note Authorized and Performed by: Nilay Young DO Total critical care time: 45 min Due to a high probability of clinically significant, life threatening deterioration, the patient required my highest level of preparedness to intervene emergently and I personally spent this critical care time directly and personally managing the patient. This critical care time included obtaining a history; examining the patient; pulse oximetry; ordering and review of studies; arranging urgent treatment with development of a management plan; evaluation of patient's response to treatment; frequent reassessment; and, discussions with other providers. This critical care time was performed to assess and manage the high probability of imminent, life-threatening deterioration that could result in multi-organ failure. It was exclusive of separately billable procedures and treating other patients and teaching time. Please see MDM section and the rest of the note for further information on patient assessment and treatment. Discharge Plan Discharge Chief Complaint: Shortness of Breath/Dyspnea Clinical Impression: Acute hypotension, Tachycardia Prescriptions / Home Meds: No Action atorvastatin 40 mg tablet 20 mg PO DAILY acetaminophen 325 mg capsule 650 mg PO Q6H PRN (Reason: fever or pain) dapagliflozin propanediol 10 mg tablet 10 mg PO DAILY Entresto 24-26 mg tablet 1 tab PO BID folic acid 1 mg tablet 1 mg PO DAILY insulin lispro 100 unit/mL insulin pen SUBCUT metoprolol tartrate 25 mg tablet 25 mg PO BID ondansetron HCl 4 mg tablet 4 mg PO Q6H PRN (Reason: nausea and vomiting) pantoprazole 40 mg tablet,delayed release (DR/EC) 40 mg PO DAILY quetiapine 50 mg tablet 50 mg PO DAILY spironolactone [Aldactone] 25 mg tablet 12.5 mg PO DAILY thiamine HCl (vitamin B1) 100 mg capsule 100 mg PO DAILY fluconazole [Diflucan] 100 mg tablet 100 mg PO DAILY heparin (porcine) 5,000 unit/mL (1 mL) cartridge 5,000 unit subcut Q12H nitroglycerin 0.4 mg tablet, sublingual 0.4 mg sublingual Q5M PRN (Reason: chest pain) Rx Instructions: do not exceed 3 doses per episode Print Language: Marshallese Referrals: RAFIQ SIERRA DO [Primary Care Provider, Family Practice] - 1 week
[2024-08-24 15:03] LABS: Bilirubin Urine NEGATIVE (NEGATIVE); Blood Urine NEGATIVE (NEGATIVE); Clarity Urine CLEAR (CLEAR); Color Urine LT. YELLOW (YELLOW); Glucose Urine UA >=1000 mg/dL (NEGATIVE); Ketones Urine NEGATIVE (NEGATIVE); Leukocyte Esterase Urine NEGATIVE (NEGATIVE); Nitrite Urine NEGATIVE (NEGATIVE); Protein Urine NEGATIVE (NEG/TRACE); Specific Gravity Urine <=1.005 (1.005-1.025); Urine Microscopic Indicated NO
[2024-08-24] MEDS: POTASSIUM CHLORIDE 40 MEQ in 0.9 % SODIUM CHLORIDE 250 ML 67.5 MEQ IV (15:03)
[2024-08-24] MEDS: PIPERACILLIN SODIUM/TAZOBACTAM 4.5 GM in 0.9 % SODIUM CHLORIDE 50 ML IV (16:45)
[2024-08-24 17:15] LABS: Lactate/Lactic Acid 1.8 mmol/L (0.4-2.0)
[2024-08-24] MEDS: VANCOMYCIN HCL 1,500 MG in 0.9 % SODIUM CHLORIDE 500 ML 250 MG IV (17:17)
--- NOTE | 2024-08-24 18:18 | P.HP_ITS ---
HPI H&P: HPI History of Present Illness Chief complaint: DEHYDRATION HYPOTENSION AMS HYPOKALEMIA Narrative: Patient was a recent discharge, within about the last 10 days from the [facility], not main campus, having increasing altered mental status today, and some shortness of breath, when presented to the emergency room with respiratory distress acute hypoxic with O2 sat of 86% and significant hypotension with blood pressure 76/55 patient given fluid boluses and supplemental oxygen, respiratory rate is improving blood pressure is improving When I saw patient in the emergency room, resting comfortably bed, did have some altered mental status and unable to answer questions completely, really just describes being more short of breath lately, some cough but nonproductive Review of Systems ROS Status of ROS 10 or more systems reviewed and unremark able except as noted in history and below [facility] Medical History (Updated 08/24/24 @ 17:12 by Sofía Mclain) ETOH abuse ?F10.10 - Alcohol abuse, uncomplicated (ICD-10) COPD (chronic obstructive pulmonary disease) ?J44.9 - Chronic obstructive pulmonary disease, unspecified (ICD-10) Subarachnoid bleed ?I60.9 - Nontraumatic subarachnoid hemorrhage, unspecified (ICD-10) Meds Home Medications and Allergies Home Medications ?Medication ?Instructions ?Recorded ?Confirmed ?Type acetaminophen 325 mg capsule 650 mg PO Q6H PRN fever o r pain 08/24/24 08/24/24 History atorvastatin 40 mg tablet 20 mg PO DAILY 08/24/2408/05 History dapagliflozin propanediol 10 mg 10 mg PO DAILY 5 08/24/24 History tablet fluconazole 100 mg tablet 100 mg PO DAILY 08/24/24 History (Diflucan) folic acid 1 mg tablet 1 mg PO DAILY 08/24/2408/24 History heparin (porcine) 5,000 unit/mL (1 5,000 unit subcut Q 12H 08/24/24 08/24/24 History mL) injection cartridge insulin lispro 100 unit/mL subcut 08/24/24 History subcutaneous pen metoprolol tartrate 25 mg tablet 25 mg PO BID 08/24/24 08/24/24 History nitroglycerin 0.4 mg sublingual 0.4 mg sublingual Q5M PRN chest 08/24/24 08/24/24 History tablet pain ondansetron HCl 4 mg tablet 4 mg PO Q6H PRN nausea and vomiting 08/24/24 08/24/24 History pantoprazole 40 mg tablet,delayed 40 mg PO DAILY 08/2408/24/24 History release quetiapine 50 mg tablet 50 mg PO DAILY 08/24/24 06/03/30 History sacubitril 24 mg-valsartan 26 mg 1 tab PO BID 08/24/24 08/24/24 History tablet (Entresto) spironolactone 25 mg tablet 12.5 mg PO DAILY 08/24/24 08/24/24 History (Aldactone) thiamine HCl (vitamin B1) 100 mg 100 mg PO DAILY 08/2408/24/24 History capsule Allergies Allergy/AdvReac Type Severity Reaction Status Date / Time No Known Drug Allergies Allergy Verified 08/24/24 13:38 Exam Constitutional Vital Signs, click to edit/add: Last Vital Signs Temp 97.7 F 08/24/24 13:34 Pulse 93 H 08/24/24 18:10 Resp 27 H 08/24/24 18:10 BP 113/86 08/24/24 17:31 Pulse Ox 95 08/24/24 15:02 O2 Del Method Nasal Cannula 08/24/24 13:39 O2 Flow Rate 2 08/24/24 13:39 Documenting provider has reviewed patient's vital signs: yes Common normals: no apparent distress Chest Common normals: inspection of chest normal Respiratory Common normals: normal respiratory effort and no retractions Auscultation: rhonchi (Mild diffuse) Cardio Common normals: regular rhythm and no murmurs; irregular rate Rate: tachycardic GI Common normals: Normal to inspection, nondistended, normoactive bowel sounds present and soft to palpation; tender (Mild diffuse, no rebound) Extremity Common normals: normal to inspection, full ROM, no clubbing, cyanosis or edema a nd no calf tenderness Results Labs Labs: Short CBC 08/24/24 Range/Units 13:55 WBC 8.8 (4.0-11.0) 10^3/uL Hgb 8.1 L (14.0-18.0) g/dL Hct 26.6 L (42.0-54.0) % Plt Count 451 H (150-450) 10^3/uL BMP 08/24/24 13:55 Sodium 136 Potassium 2.6 L* Chloride 97 L Carbon Dioxide 23.1 BUN 14.0 Creatinine 1.03 Glucose 116 H Calcium 7.7 L Liver Function 08/24/24 Range/Units 13:55 Total Bilirubin 0.4 (0.2-1.0) mg/dL AST 23 (15-37) U/L ALT 43 (16-63) U/L Alkaline Phosphatase 114 (46-116) U/L Albumin 3.1 L (3.4-5.0) g/dL Urine 08/24/24 Range/Units 14:30 Urine Color Lt. yellow (YELLOW) Urine Clarity Clear (CLEAR) Urine pH 6.0 (5.0-9.0) Ur Specific Sawyer <=1.005 A (1.005-1.025) Urine Protein Negative (NEG/TRACE) mg/dL Urine Glucose (UA) >=1000 A (NEGATIVE) mg/dL Assessment and Plan Assessment and Plan (1) Tachycardia: (2) Acute hypotension: (3) ETOH abuse: (4) COPD (chronic obstructive pulmonary disease): Plan Admission findings: Altered mental status, sinus tachycardia, respiratory distress, significant hypotension with a blood pressure of 76/55 with a MAP of 62, acute hypoxia with O2 sat of 86%, and anemia with hemoglobin of 8 and hypokalemia with positive lactic acidosis consistent with severe sepsis Severe sepsis-uncertain etiology or source-recent hospital discharge, will do broad-spectrum antibiotic repeat labs in a.m. Severe hypotension-BP 76/55 on admission with a MAP of 62-so far tolerating IV fluids, does have a history of chronic combined congestive heart failure Acute hypoxia-stable supplement supplemental oxygen Acute anemia-will review old labs his hemoglobin is around 8 and that is with likely significant dehydration, start patient on IV Protonix, check stool for occult blood Coagulopathy-this is likely secondary to his heparin-repeat in a.m. holding heparin, possible other etiology would be the sepsis History of chronic combined congestive heart failure-holding off on blood pressure medications currently Diabetes mellitus according to his medication list on insulin-insulin sliding scale Hypertension by history-holding blood pressure medications History of alcohol abuse-uncertain if he has been drinking recently, that may explain the altered mental status-CIWA scale Moderate protein calorie malnutrition-diet supplement Thrombocythemia-likely related to the sepsis-repeat in a.m. Hypokalemia-supplement Coronary artery disease-status post stenting-no chest pain currently and troponin is negative Admission status: Patient with severe hypotension, tachycardia, acute hypoxia, l actic acidosis consistent with sepsis-medically necessary treatment will span 2 midnights. Inpatient status
[2024-08-24 18:54] LABS: Thyroid Stimulating Hormone 1.778 uIU/mL (0.358-3.740)
[2024-08-24 18:59] LABS: Magnesium 0.4 mg/dL (1.8-2.4)
--- NOTE | 2024-08-24 19:20 | PC.NURSE ---
dr. borges notified of mag level. asked for it to be re run, lab called and notified
[2024-08-24] MEDS: LACTATED RINGER'S SOLUTION 1,000 ML 100 ML IV (20:18)
[2024-08-24] MEDS: PIPERACILLIN SODIUM/TAZOBACTAM 3.375 GM in 0.9 % SODIUM CHLORIDE 50 ML IV (20:18)
[2024-08-24] MEDS: POTASSIUM CHLORIDE 10 MEQ ER TABLET 20 MEQ PO (20:19)
[2024-08-24] MEDS: LORAZEPAM 1 MG TABLET PO (20:19)
[2024-08-24 21:04] LABS: Glucometer 94 mg/dL (74-106)
[2024-08-24 21:14] LABS: Magnesium 0.5 mg/dL (1.8-2.4)
[2024-08-24] MEDS: PANTOPRAZOLE SODIUM 40 MG VIAL IV (21:22)
--- NOTE | 2024-08-24 22:30 | PC.NURSE ---
Nurse in to patient's room in response to bed alarm ringing. Upon entering room patient was found down on the floor. Pt states he hit his head on the left side above his left ear. Physician notified and order obtained for CT Head and Neck. Awaiting results at this time.
--- OUTSIDE RECORDS SUMMARY | 2024-08-24 23:25 | XMS_ITS | Encounter Summary ---
Author Organization [employer] Address [id number] [address] [place] [address] Care Team Providers Care Nailer Operator Name Role Phone Oswaldo Turpin Fuad HAJI Primary Care Provider [phone] Encounter Details Date Type Department Care Team ([facility] st Contact Info) Description 08/24/2024 11:25 PM EDT Ancillary Procedure [facility] [employer] [facility] [place] [address] Pain Social History Tobacco Use Types Packs/Day Years Used Date Smoking Tobacco: Every Day Cigarettes 2 25 Comments:smokes 3-4 cigarret es occasionally at [facility] Childcare Answer Date Recorded Childcare [...] pt spouse plan is to return [place] [facility] [place] documented as of this encounter Procedures Procedure Name Priority Date/Time Associated Diagnosis Comments CT CERVICAL SPINE WO CONT Routine 08/24/2024 11:25 PM EDT Pain documented in this encounter Results * CT cervical spine without contrast (08/24/2024 11:25 PM EDT) us Scanning Provider External IMG CT ORDERABLES Fin al Result documented in this encounter Visit Diagnoses Diagnosis Pain Generalized pain documented in this encounter Care Teams Nailer Operator Relationship Specialty Start Date End Date Oswaldo Turpin DO [address] [place] [address] PCP - General Family Medicine 10/03/21 08/25/24 documented as of this encounter
--- OUTSIDE RECORDS SUMMARY | 2024-08-24 23:30 | XMS_ITS | Encounter Summary ---
Author Organization [employer] Address [id number] [address] [place] [address] Care Team Providers Care Climate Change Risk Assessor Name Role Phone Oswaldo Turpin Primary Care Provider [phone] Encounter Details Date Type Department Care Team ([facility] Contact Info) Description 08/24/2024 11:30 PM EDT Ancillary Procedure [facility] [place] [address] Pain Social History Tobacco Use Types Packs/Day Years Used Date Smoking Tobacco: Every Day Cigarettes 2 25 Comments:smokes 3-4 cigarret es occasionally at [facility] Childcare Answer Date Recorded Childcare [...] pt spouse plan is to return to [facility] [place] documented as of this encounter Procedures Procedure Name Priority Date/Time Associated Diagnosis Comments CT BRAIN WO CONT Routine 08/24/2024 11:30 PM EDT Pain documented in this encounter Results * CT brain without contrast (08/24/2024 11:30 PM EDT) us Scanning Provider External IMG CT ORDERABLES Fin al Result documented in this encounter Visit Diagnoses Diagnosis Pain Generalized pain documented in this encounter Care Teams Climate Change Risk Assessor Relationship Specialty Start Date End Date Oswaldo Turpin DO [address] [place] [address] PCP - General Family Medicine 10/03/21 08/25/24 documented as of this encounter
[2024-08-24] MEDS: IPRATROPIUM/ALBUTEROL SULFATE 3 ML AMPUL.NEB IH (23:33)
[2024-08-25] VITALS (28 sets, daily range): BP systolic 99–130; BP diastolic 55–82; PULSE 82–114; RESP 16; TEMP 36.3–37.2; O2SAT 42–100
[2024-08-25] MEDS: ACETAMINOPHEN 500 MG TABLET 1000 MG PO ×2 (00:42→22:13)
[2024-08-25] MEDS: MAGNESIUM SULFATE IN WATER 4 GM/100 ML PIGGYBACK IV (01:14)
[2024-08-25] MEDS: LORAZEPAM 0.5 MG TABLET 0.25 MG PO (01:20)
[2024-08-25 01:57] LABS: Internal Control Within Normal Limits; Occult Blood Negative
[2024-08-25] MEDS: PIPERACILLIN SODIUM/TAZOBACTAM 3.375 GM in 0.9 % SODIUM CHLORIDE 50 ML IV ×3 (03:39→21:14)
[2024-08-25] MEDS: IPRATROPIUM/ALBUTEROL SULFATE 3 ML AMPUL.NEB IH ×4 (06:08→23:31)
[2024-08-25 06:21] LABS: Oxygen Saturation ABG >100.0 %; pH ABG 7.495 (7.350-7.450)
[2024-08-25 06:22] LABS: Allen Test POSITIVE (POSITIVE); BIPAP Pressure 16/8; Base Excess ABG -3.3 mmol/L (-2.0-2.0); Fractionated Inspired Oxygen 60 %; HCO3 ABG 20 mmol/L (22.0-26.0); O2 Mode BIPAP; Puncture Site RR
[2024-08-25 06:39] LABS: Basophils Percent Auto 0.4 % (0.2-2.0); Eosinophils Absolute Auto 0.2 10^3/uL (0.0-0.7); Hematocrit 28.2 % (42.0-54.0); Hemoglobin 8.4 g/dL (14.0-18.0); Immature Granulocytes Abs Auto 0.02 10^3/uL (0.00-0.03); Immature Granulocytes Pct Auto 0.2 % (0.0-0.5); Lymphocytes Absolute Auto 1.5 10^3/uL (1.2-3.8); Lymphocytes Percent Auto 17.3 % (20.5-60.0); Mean Corpuscular HGB Conc 29.8 g/dL (29.9-35.2); Mean Corpuscular Volume 73.8 fL (80.0-94.0); Mean Platelet Volume 10.8 fL (9.5-13.5); Monocytes Percent Auto 11.5 % (1.7-12.0); Neutrophils Absolute Auto 6.1 10^3/uL (1.4-6.5); Neutrophils Percent Auto 68.6 % (43.0-75.0); Platelet Count 383 10^3/uL (150-450); Red Blood Count 3.82 10^6/uL (4.70-6.10); Red Cell Distribution Width 20.5 % (11.0-15.0); White Blood Count 8.9 10^3/uL (4.0-11.0)
[2024-08-25 06:58] LABS: Alanine Aminotransferase 33 U/L (16-63); Albumin Globulin Ratio 0.9; Albumin Level 2.9 g/dL (3.4-5.0); Alkaline Phosphatase 110 U/L (46-116); Anion Gap 15.3; Aspartate Amino Transferase 21 U/L (15-37); BUN Creatinine Ratio 8.6; Bilirubin Total 0.4 mg/dL (0.2-1.0); Calcium 7.8 mg/dL (8.5-10.1); Carbon Dioxide 22.6 mmol/L (21.0-32.0); Chloride 104 mmol/L (98-107); Estimated GFR (African America >60 (>=60 mL/min/1.73m^2); Estimated GFR (Non-African Ame >60 (>=60 mL/min/1.73m^2); Globulin 3.3 g/dL; Glucose 96 mg/dL (74-106); Sodium 139 mmol/L (136-145); Total Protein 6.2 g/dL (6.4-8.2)
[2024-08-25 07:02] LABS: INR 1.05; Partial Thromboplastin Time 24.9 sec (22.3-36.2); Prothrombin Time 11.1 sec (9.0-11.6)
[2024-08-25 07:06] LABS: Troponin I High Sensitivity 25.8 pg/mL (4.0-76.1)
[2024-08-25 07:09] LABS: Magnesium 2.1 mg/dL (1.8-2.4)
--- NOTE | 2024-08-25 07:09 | P.PN_ITS ---
Progress Note: Subjective Subjective Interval history: Over night patient condition deteriorated requiring BiPAP ventilation, he did respond well to that. First time on rounds this morning patient obtunded sleepy not arousable and on BiPAP Came up a couple hours later, is not present in the room he is awake and alert and off of supplemental oxygen, much more alert than when I saw him in the emergency room yesterday is oriented although that may change throughout the course of the day, denies complaint other than mild cough, was sitting up in bed eating breakfast Exam Constitutional Vital Signs, click to edit/add: Last Vital Signs Temp 97.7 F 08/25/24 04:00 Pulse 90 08/25/24 06:11 Resp 16 08/25/24 06:55 BP 120/74 08/25/24 04:00 Pulse Ox 100 08/25/24 06:55 O2 Del Method BIPAP 08/25/24 06:55 O2 Flow Rate 4 08/25/24 05:50 FiO2 60 08/25/24 06:11 Documenting provider has reviewed patient's vital signs: yes Common normals: no apparent distress Chest Common normals: inspection of chest normal Respiratory Auscultation: rhonchi Cardio Common normals: regular rate, regular rhythm and no murmurs GI Common normals: Normal to inspection, nondistended, normoactive bowel sounds present, soft to palpation and non-tender Extremity Common normals: normal to inspection, full ROM and no clubbing, cyanosis or edema Progress Note: Objective Labs Labs: Short CBC 08/24/24 08/25/24 Range/Units 13:55 06:15 WBC 8.8 8.9 (4.0-11.0) 10^3/uL Hgb 8.1 L 8.4 L (14.0-18.0) g/dL Hct 26.6 L 28.2 L (42.0-54.0) % Plt Count 451 H 383 (150-450) 10^3/uL BMP 08/24/24 13:55 Sodium 136 Potassium 2.6 L* Chloride 97 L Carbon Dioxide 23.1 BUN 14.0 Creatinine 1.03 Glucose 116 H Calcium 7.7 L Liver Function 08/24/24 Range/Units 13:55 Total Bilirubin 0.4 (0.2-1.0) mg/dL AST 23 (15-37) U/L ALT 43 (16-63) U/L Alkaline Phosphatase 114 (46-116) U/L Albumin 3.1 L (3.4-5.0) g/dL Urine 08/24/24 Range/Units 14:30 Urine Color Lt. yellow (YELLOW) Urine Clarity Clear (CLEAR) Urine pH 6.0 (5.0-9.0) Ur Specific Lerna <=1.005 A (1.005-1.025) Urine Protein Negative (NEG/TRACE) mg/dL Urine Glucose (UA) >=1000 A (NEGATIVE) mg/dL Progress Note: A&P Assessment and Plan (1) Tachycardia: (2) Acute hypotension: (3) ETOH abuse: (4) COPD (chronic obstructive pulmonary disease): (5) Acute hypoxic respiratory failure: (6) Altered mental status: (7) Respiratory distress: (8) Thrombocythemia: (9) Hypokalemia: (10) Hyperglycemia: (11) Hypomagnesemia: (12) Hypocalcemia: (13) Chronic combined systolic (congestive) and diastolic (congestive) heart failure: (14) Hypertension: (15) Severe sepsis: (16) Sleep apnea: (17) Acute anemia: (18) Coagulopathy: (19) Moderate protein-calorie malnutrition: (20) Coronary artery disease: Plan Admission findings: Altered mental status, sinus tachycardia, respiratory distress, significant hypotension with a blood pressure of 76/55 with a MAP of 62, acute hypoxia with O2 sat of 86%, and anemia with hemoglobin of 8 and hypokalemia with positive lactic acidosis consistent with severe sepsis Severe sepsis-uncertain etiology or source-blood cultures sputum cultures are pending, would maintain on current antibiotic dosing until cultures are returned is negative Severe hypotension-BP 76/55 on admission with a MAP of 62-blood pressure improved with fluids, taking oral intake now will saline lock as his BNP is now elevated Acute hypoxic respiratory failure-requiring BiPAP ventilation--improved later this morning Untreated sleep apnea-will use CPAP while he is here, may need outpatient sleep study Acute anemia-hemoglobin actually improved today and this despite the aggressive fluid resuscitation from the previous day, Hemoccult pending, maintain Protonix Coagulopathy-this is likely secondary to his heparin-repeat in a.m.-since hemoglobin improving, Hemoccult pending on Protonix we will restart heparin as recommended by your previous hospitalization History of chronic combined congestive heart failure-restart Invokana in place of Farxiga, restart Entresto, blood pressure improved today Diabetes mellitus according to his medication list on insulin-insulin sliding scale-improved to normal Hypertension by history-restarting Invokana in place of Farxiga and Entresto, adding blood pressure medications back slowly as patient was severely hypotensive this may be related to over medications History of alcohol abuse-in the remote past-can remove seizure precautions and CIWA scale monitoring Thrombocythemia-improved to normal Hypokalemia-still low this morning, increase oral supplementation and IV bolus Severe hypomagnesemia-improved to normal today, start oral agent supplementation Hypocalcemia-even when corrected for hypoalbuminemia still is hypocalcemic-add supplement Coronary artery disease-status post stenting-no chest pain currently and troponin is negative Moderate to severe protein calorie malnutrition-diet supplement Admission status: Patient with severe hypotension, tachycardia, acute hypoxia, lactic acidosis consistent with sepsis-medically necessary treatment will span 2 midnights. Inpatient status
[2024-08-25 07:11] LABS: Potassium 2.9 mmol/L (3.5-5.1)
[2024-08-25] MEDS: POTASSIUM CHLORIDE 40 MEQ in 0.9 % SODIUM CHLORIDE 250 ML 67.5 MEQ IV (08:06)
[2024-08-25] MEDS: DEXAMETHASONE SOD PHOS 20 MG/5 ML VIAL 6 MG IV (09:06)
[2024-08-25] MEDS: POTASSIUM CHLORIDE 10 MEQ ER TABLET 20 MEQ PO ×4 (09:06→21:13)
[2024-08-25] MEDS: FUROSEMIDE 40 MG/4 ML VIAL 60 MG IVP (09:07)
[2024-08-25] MEDS: FLUCONAZOLE 100 MG TABLET PO (09:07)
[2024-08-25] MEDS: THIAMINE MONONITRATE (VIT B1) 100 MG TABLET PO (09:07)
[2024-08-25] MEDS: ENSURE ORIGINAL 237 ML BOTTLE PO ×2 (09:07→21:13)
[2024-08-25] MEDS: FOLIC ACID 1 MG TABLET PO (09:07)
--- NOTE | 2024-08-25 09:52 | PC.NURSE ---
at bedside, patient taken off bipap
[2024-08-25] MEDS: MAGNESIUM OXIDE 400 MG TABLET PO ×2 (10:53→21:13)
[2024-08-25] MEDS: CANAGLIFLOZIN 100 MG TABLET PO (10:53)
[2024-08-25] MEDS: SACUBITRIL/VALSARTAN 24 MG-26 MG TABLET 1 TAB PO ×2 (10:53→21:13)
[2024-08-25] MEDS: HEPARIN SODIUM (PORCINE) 5,000 UNIT/ML VIAL 5000 UNIT SUBQ ×2 (10:53→21:36)
--- NOTE | 2024-08-25 11:37 | PC.NURSE ---
patient resting quietly, back on bipap
[2024-08-25 12:19] LABS: Glucometer 226 mg/dL (74-106)
[2024-08-25] MEDS: INSULIN ASPART 300 UNIT/3 ML PEN SUBQ ×3 (12:20→21:15)
--- NOTE | 2024-08-25 13:27 | PC.NURSE ---
patient assisted to bedside commode. did well with 1 assist. patient to chair after commode
--- NOTE | 2024-08-25 13:45 | PC.NURSE ---
patient up to chair and tolerating well
[2024-08-25] MEDS: VANCOMYCIN HCL 1,000 MG in 0.9 % SODIUM CHLORIDE 250 ML 250 MG IV (17:45)
[2024-08-25 18:09] LABS: Glucometer 186 mg/dL (74-106)
[2024-08-25 19:53] LABS: Glucometer 207 mg/dL (74-106)
[2024-08-25] MEDS: ATORVASTATIN CALCIUM 40 MG TABLET PO (21:12)
[2024-08-25] MEDS: QUETIAPINE FUMARATE 25 MG TABLET 50 MG PO (21:13)
[2024-08-25] MEDS: PANTOPRAZOLE SODIUM 40 MG VIAL IV (21:17)
[2024-08-26] VITALS (60 sets, daily range): BP systolic 89–124; BP diastolic 60–76; PULSE 87–124; TEMP 36.4–37.2; O2SAT 81–100
--- NOTE | 2024-08-26 00:04 | RESP.RT ---
Pt refusing to wear BIPAP for the night. RT encouraged pt to wear it and explained risks of not wearing BIPAP. RT also explained benefits of BIPAP and patient still declined to wear.
[2024-08-26] MEDS: IPRATROPIUM/ALBUTEROL SULFATE 3 ML AMPUL.NEB IH ×3 (04:51→23:27)
[2024-08-26] MEDS: VANCOMYCIN HCL 1,000 MG in 0.9 % SODIUM CHLORIDE 250 ML 250 MG IV ×2 (05:02→16:25)
[2024-08-26 05:20] LABS: Basophils Percent Auto 0.1 % (0.2-2.0); Immature Granulocytes Abs Auto 0.02 10^3/uL (0.00-0.03); Immature Granulocytes Pct Auto 0.3 % (0.0-0.5); Lymphocytes Absolute Auto 0.9 10^3/uL (1.2-3.8); Lymphocytes Percent Auto 12.2 % (20.5-60.0); Mean Corpuscular HGB Conc 30.4 g/dL (29.9-35.2); Mean Corpuscular Hemoglobin 21.6 pg (25.9-34.0); Mean Corpuscular Volume 71.1 fL (80.0-94.0); Mean Platelet Volume 10.7 fL (9.5-13.5); Monocytes Absolute Auto 0.7 10^3/uL (0.3-0.8); Neutrophils Absolute Auto 5.7 10^3/uL (1.4-6.5); Neutrophils Percent Auto 77.4 % (43.0-75.0); Platelet Count 316 10^3/uL (150-450); Red Blood Count 3.15 10^6/uL (4.70-6.10); Red Cell Distribution Width 20.4 % (11.0-15.0); White Blood Count 7.3 10^3/uL (4.0-11.0)
[2024-08-26 05:40] LABS: INR 1.07; Partial Thromboplastin Time 25.1 sec (22.3-36.2); Prothrombin Time 11.3 sec (9.0-11.6)
--- NOTE | 2024-08-26 06:00 | XR_ITS ---
[place] [id number] Patient Name: SARAY CLEMONS MRN: [id number] date: 1960 Sex: M Assigned Patient Location: [place] Current Patient Location: [place] Accession/Order Number: [id number] Exam Date: 08/26/2024 11:22 Report Date: 08/26/2024 11:25 At the request of: NESS WILSON MD Procedure: XR chest 2V PA AND LATERAL CHEST: CLINICAL HISTORY: Follow up pneumonia COMPARISON: CT 08/24/2024 There is shallow inspiration. Minor scarring or atelectasis is present. There is no focal parenchymal consolidation, effusion or pneumothorax. The cardiac, hilar and mediastinal silhouettes are within normal limits. There is no vascular congestion. The visualized bony structures are osteopenic. Thoracolumbar compression deformities were seen previously. XR/XR chest 2V IMPRESSION: NO ACUTE CARDIOPULMONARY ABNORMALITY. Impression dictated by: Betina Griffin M.D. 08/26/2024 11:25 AM Dictation Location: [place] [address] Electronically authenticated by: [id number] Y Date: 08/26/2024 11:25
[2024-08-26 06:01] LABS: Alanine Aminotransferase 32 U/L (16-63); Albumin Globulin Ratio 0.9; Alkaline Phosphatase 98 U/L (46-116); Anion Gap 11.1; Aspartate Amino Transferase 18 U/L (15-37); BUN Creatinine Ratio 10.7; Bilirubin Total 0.3 mg/dL (0.2-1.0); Calcium 7.9 mg/dL (8.5-10.1); Carbon Dioxide 23.7 mmol/L (21.0-32.0); Chloride 104 mmol/L (98-107); Estimated GFR (African America >60 (>=60 mL/min/1.73m^2); Estimated GFR (Non-African Ame >60 (>=60 mL/min/1.73m^2); Globulin 3.2 g/dL; Glucose 136 mg/dL (74-106); Potassium 3.8 mmol/L (3.5-5.1); Sodium 135 mmol/L (136-145); Total Protein 6.2 g/dL (6.4-8.2)
[2024-08-26 06:02] LABS: Magnesium 1.4 mg/dL (1.8-2.4)
[2024-08-26] MEDS: PIPERACILLIN SODIUM/TAZOBACTAM 3.375 GM in 0.9 % SODIUM CHLORIDE 50 ML IV ×3 (06:05→21:24)
[2024-08-26 06:28] LABS: Hematocrit 22.4 % (42.0-54.0); Hemoglobin 6.8 g/dL (14.0-18.0)
[2024-08-26 08:17] LABS: Glucometer 135 mg/dL (74-106)
[2024-08-26] MEDS: CANAGLIFLOZIN 100 MG TABLET PO (08:54)
[2024-08-26] MEDS: ENSURE ORIGINAL 237 ML BOTTLE PO ×2 (08:54→21:24)
[2024-08-26] MEDS: SACUBITRIL/VALSARTAN 24 MG-26 MG TABLET 1 TAB PO ×2 (08:54→21:24)
[2024-08-26] MEDS: MAGNESIUM OXIDE 400 MG TABLET PO ×2 (08:55→21:23)
[2024-08-26] MEDS: FOLIC ACID 1 MG TABLET PO (08:55)
[2024-08-26] MEDS: THIAMINE MONONITRATE (VIT B1) 100 MG TABLET PO (08:55)
[2024-08-26] MEDS: POTASSIUM CHLORIDE 10 MEQ ER TABLET 20 MEQ PO ×2 (08:55→11:06)
[2024-08-26] MEDS: DEXAMETHASONE SOD PHOS 4 MG/ML VIAL 6 MG IV (09:00)
[2024-08-26] MEDS: FLUCONAZOLE 100 MG TABLET PO (09:00)
--- NOTE | 2024-08-26 09:31 | CT_ITS ---
The [address] [address] Patient Name: SARAY CLEMONS MRN: [id number] date: 1960 Sex: M Assigned Patient Location: [place] Current Patient Location: Accession/Order Number: [id number] Exam Date: 08/26/2024 10:19 Report Date: 08/26/2024 10:31 At the request of: LORRAINE FERRIS MD Procedure: CT abdomen pelvis wo con CT ABDOMEN AND PELVIS WITHOUT CONTRAST COMPARISON: 08/24/2024 CLINICAL DATA: Anemia. Spiral images were obtained through the abdomen and pelvis without contrast. This CT exam was performed using one or more following dose reduction techniques: Automated exposure control, adjustment of the mA and/or kV according to patient size, or use of iterative reconstruction technique. Limited cuts through the lung bases show minor atelectasis and/or scarring. Assessment of the intra-abdominal organs is slightly limited by the absence of contrast. The gallbladder is surgically absent. No common duct stones are noted. No intrahepatic masses are seen. The spleen is normal in size and attenuation. Adrenal limb thickening is again visualized on the left. The pancreas is atrophic and a couple calcifications are again visualized at the pancreatic head. No renal calculi or hydronephrosis are seen. There is atherosclerotic plaque involving the aorta and iliac arteries. No enlarged lymph nodes are visualized. No ascites is seen. The small bowel loops are normal caliber. There is stool mixed with dense contrast throughout the colon. A few colonic diverticula are seen. There is also a small amount of contrast as well as fluid and food debris within the stomach. The gastric wall thickening described on the prior is less apparent at this time. There is contrast within a nondistended appendix. Compression deformities are again seen at T12, L1 and L5. Minor degenerative changes are seen at the spine and SI joints. Images through the pelvis show no distended small bowel. There is contrast at the distal colon. There is outlining of several colonic diverticula. There is no active inflammation. The prostate is not significantly enlarged. The urinary bladder is well-distended and no contour or intraluminal abnormalities are seen. No ascites is identified. There are bony changes at the femoral heads which could be early avascular necrosis. CT/CT abdomen pelvis wo con IMPRESSION: NO BOWEL OR URINARY TRACT OBSTRUCTION. DIVERTICULOSIS. NO ACUTE FINDINGS OR INTERVAL CHANGE. Impression dictated by: Betina Griffin M.D. 08/26/2024 10:31 AM Dictation Location: [place] [address] Electronically authenticated by: [id number] Y Date: 08/26/2024 10:31
--- NOTE | 2024-08-26 09:50 | SWNOTE1 ---
Pt is from the [facility] skilled and will be a precert to return.
[2024-08-26 09:58] LABS: Hematocrit 24.5 % (42.0-54.0); Hemoglobin 7.3 g/dL (14.0-18.0); Mean Corpuscular HGB Conc 29.8 g/dL (29.9-35.2); Mean Corpuscular Hemoglobin 21.7 pg (25.9-34.0); Mean Corpuscular Volume 72.9 fL (80.0-94.0); Mean Platelet Volume 10.3 fL (9.5-13.5); Platelet Count 348 10^3/uL (150-450); Red Blood Count 3.36 10^6/uL (4.70-6.10); Red Cell Distribution Width 20.4 % (11.0-15.0); White Blood Count 6.9 10^3/uL (4.0-11.0)
[2024-08-26 10:26] LABS: Thyroid Stimulating Hormone 1.056 uIU/mL (0.358-3.740)
--- NOTE | 2024-08-26 10:30 | CM.NOTE ---
Rounds made with Dr. Castillo, pt will discharge back to [facility] for skilled therapy when medically stable. Dr. Castillo in agreement to start precert today for pt to return for skilled therapy.
[2024-08-26] MEDS: ACETAMINOPHEN 500 MG TABLET 1000 MG PO ×2 (11:06→21:23)
[2024-08-26 11:09] LABS: Percent Iron Saturation 2.8 %
[2024-08-26] MEDS: INSULIN ASPART 300 UNIT/3 ML PEN SUBQ ×3 (11:09→22:19)
[2024-08-26 11:19] LABS: Glucometer 190 mg/dL (74-106)
--- NOTE | 2024-08-26 11:21 | SWNOTE1 ---
SW received message from Zeina at [facility] and she started precert for pt to return.
--- NOTE | 2024-08-26 11:33 | SWNOTE1 ---
SW and I met with pt in room and was at bedside. Pt is from the [facility] and SW asked if his care there was going well. Pt's voiced it was just okay. SW asked if pt would like to return to the [facility] and that he would be a precert. Pt's voiced understanding and she was okay with returning to the [facility] for now. Pt's voiced that if he is doing better there is a chance she will take pt home with home health. She voiced he had [facility] in the past. Precert has been started to return to [facility].
--- NOTE | 2024-08-26 11:34 | P.IMPN_ITS ---
Progress Note: A&P Assessment and Plan (1) Tachycardia: (2) Acute hypotension: (3) ETOH abuse: (4) COPD (chronic obstructive pulmonary disease): (5) Acute hypoxic respiratory failure: (6) Altered mental status: (7) Respiratory distress: (8) Thrombocythemia: (9) Hypokalemia: (10) Hyperglycemia: (11) Hypomagnesemia: (12) Hypocalcemia: (13) Chronic combined systolic (congestive) and diastolic (congestive) heart failure: (14) Hypertension: (15) Severe sepsis: (16) Sleep apnea: (17) Acute anemia: (18) Coagulopathy: (19) Moderate protein-calorie malnutrition: (20) Coronary artery disease: Plan Lactic acidosis, could be in the setting of severe sepsis as well as dehydration acute on chronic microcytic anemia and symptomatic, likely iron deficiency with no evidence of GI bleeding Delirium? UTI is negative Acute CVA was ruled out - Will continue with IV Zosyn pending repeat cultures - CT abdomen pelvis without contrast ordered today and was reviewed. Will give the patient 1 unit of packed RBCs I will order anemia workup he may benefit from IV iron while he is here. -CXR was negative - SCDs instead of HSQ for DVT prophylaxis - I consulted neurology for further input in regards to his mental status -I held the patient's potassium orders The as needed 1. I will order IV magnesium as he is hypomagnesemic. Also will order another potassium for tonight and will reassess - I will order cortisol level as well -Will continue to follow closely, I discussed the plan in details with the pt's , Gwendolyn present at bedside with the pt. Internal Medicine - PN: Subj Subjective Interval history: Patient seen and examined at bedside. I took over his care today. Hemoglobin was on the lower side otherwise he denies any hematochezia or melena or dark stools. He denies any hematemesis or vomiting or nausea. He denies any fever or chills. Sitting up in the chair he is clearly oriented x 2 but not to the year, he does not remember or recall any of his hospitalization during his stay at [facility]. Exam Narrative Exam Narrative: Common normals: no apparent distress Chest Common normals: inspection of chest normal Respiratory Common normals: normal respiratory effort and no retractions Auscultation: rhonchi (Mild diffuse) Cardio Common normals: regular rhythm and no murmurs; irregular rate Rate: tachycardic GI Common normals: Normal to inspection, nondistended, normoactive bowel sounds present and soft to palpation; tender (Mild diffuse, no rebound) Extremity Common normals: normal to inspection, full ROM, no clubbing, cyanosis or edema and no calf tenderness Constitutional Vital Signs, click to edit/add: Last Vital Signs Temp 97.6 F 08/26/24 08:00 Pulse 88 08/26/24 08:00 Resp 20 08/26/24 05:06 BP 109/63 08/26/24 04:00 Pulse Ox 92 L 08/26/24 11:11 O2 Del Method Room Air 08/26/24 11:11 O2 Flow Rate 2 08/26/24 05:06 FiO2 60 08/25/24 08:00 Internal Medicine - PN: Obj Da Labs Labs: Laboratory Results - last 24 hr 08/25/24 08/25/24 08/25/24 12:17 17:35 19:51 WBC RBC Hgb Hct MCV MCH MCHC RDW Plt Count MPV Neut % (Auto) Lymph % (Auto) [place] % (Auto) Eos % (Auto) Baso % (Auto) Neut # (Auto) Lymph # (Auto) [place] # (Auto) Eos # (Auto) Baso # (Auto) Abs Immat Gran (auto) Imm/Tot Granulo (auto) PT INR APTT Sodium Potassium Chloride Carbon Dioxide Anion Gap BUN Creatinine Est GFR ( Amer) Est GFR (Non-Af Amer) BUN/Creatinine Ratio Glucose Calcium Magnesium Iron TIBC % Saturation Ferritin Total Bilirubin AST ALT Alkaline Phosphatase Troponin I High Sens NT-Pro-B Natriuret Pep Total Protein Albumin Globulin Albumin/Globulin Ratio Folate TSH POC Glucose 226 H 186 H 207 H 08/26/24 08/26/24 08/26/24 04:59 08:06 09:52 WBC 7.3 6.9 RBC 3.15 L 3.36 L Hgb 6.8 L* 7.3 L Hct 22.4 L* 24.5 L MCV 71.1 L 72.9 L MCH 21.6 L 21.7 L MCHC 30.4 29.8 L RDW 20.4 H 20.4 H Plt Count 316 348 MPV 10.7 10.3 Neut % (Auto) 77.4 H Lymph % (Auto) 12.2 L [place] % (Auto) 10.0 Eos % (Auto) 0.0 L Baso % (Auto) 0.1 L Neut # (Auto) 5.7 Lymph # (Auto) 0.9 L [place] # (Auto) 0.7 Eos # (Auto) 0.0 Baso # (Auto) 0.0 Abs Immat Gran (auto) 0.02 Imm/Tot Granulo (auto) 0.3 PT 11.3 INR 1.07 APTT 25.1 Sodium 135 L Potassium 3.8 Chloride 104 Carbon Dioxide 23.7 Anion Gap 11.1 BUN 9.0 Creatinine 0.84 Est GFR ( Amer) >60 Est GFR (Non-Af Amer) >60 BUN/Creatinine Ratio 10.7 Glucose 136 H Calcium 7.9 L Magnesium 1.4 L Iron 12.0 L TIBC 431.0 % Saturation 2.8 Ferritin 25.0 L Total Bilirubin 0.3 AST 18 ALT 32 Alkaline Phosphatase 98 Troponin I High Sens 14.0 NT-Pro-B Natriuret Pep 924.0 H Total Protein 6.2 L Albumin 3.0 L Globulin 3.2 Albumin/Globulin Ratio 0.9 Folate 26.10 TSH 1.056 POC Glucose 135 H 08/26/24 11:08 WBC RBC Hgb Hct MCV MCH MCHC RDW Plt Count MPV Neut % (Auto) Lymph % (Auto) [place] % (Auto) Eos % (Auto) Baso % (Auto) Neut # (Auto) Lymph # (Auto) [place] # (Auto) Eos # (Auto) Baso # (Auto) Abs Immat Gran (auto) Imm/Tot Granulo (auto) PT INR APTT Sodium Potassium Chloride Carbon Dioxide Anion Gap BUN Creatinine Est GFR ( Amer) Est GFR (Non-Af Amer) BUN/Creatinine Ratio Glucose Calcium Magnesium Iron TIBC % Saturation Ferritin Total Bilirubin AST ALT Alkaline Phosphatase Troponin I High Sens NT-Pro-B Natriuret Pep Total Protein Albumin Globulin Albumin/Globulin Ratio Folate TSH POC Glucose 190 H
--- NOTE | 2024-08-26 11:36 | SWNOTE1 ---
Important Message from [employer] discussed with pt's . She has no questions or concerns at this time. Pt's signed the form. Original given to and copy placed in pt's chart.
[2024-08-26] MEDS: MAGNESIUM SULFATE IN WATER 2 GM/50 ML PREMIX IV (12:11)
--- OUTSIDE RECORDS SUMMARY | 2024-08-26 12:20 | XMS_ITS | Encounter Summary ---
Author Organization [facility] EXTENDED STAYS Sys tem Address [id number] [place] [address] Care Team Providers Care Diabetes Trainer Name Role Phone Boyer Sebastián Meek HAJI Primary Care Provider Encounter Details Date Type Department Care Team (Late st Contact Info) Description 08/26/2024 12:20 PM EDT - Present Emergency [facility] Tele Stroke [address] [place] [id number] Social History Tobacco Use Types Packs/Day Years Used Date Smoking Tobacco: Every Day Cigarettes 2 25 Comments:smokes 3-4 cigarret es occasionally at [facility] Childcare Answer Date Recorded Childcare Unknown 08/13/2018 Employment Answer Date Recorded Employment Unknown 08/13/2018 Sex and Gender Information Value Date Recorded Sex Assigned at Not on file Legal Sex Male 4:32 PM EDT Gender Identity Not on file Sexual Orientation Not on file documented as of this encounter Miscellaneous Notes * Telehealth Consult - Bibi Chatterjee MD - 08/27/2024 11:13 AM EDT Images from the original note were not included. [facility] TELENEUROLOGY CONSULTATION NOTE Telemedicine consultation was requested on this patient. To the best of my ability the purpose of teleneurology was reviewed with patient prior to initiation of visit and verbal consent was obtained. Hospital: [facility] Patient Seen: Floor Neurology Consult Note Consult Date: 08/27/2024 Referring Physician: No att. providers found Reason for Consult I have been asked to see the patient in neurological consultation to render advice and opinion regarding AMS History of Present Illness Abraham Corbin is a 63 y.o. male with past medical history significant for hypertension, hyperlipidemia, alcohol use, COPD, and recent CVA who presents to the ED after being found with altered mentalstatus, respiratory distress, and hypotensive and nursing facility. Abraham does not recall why he presented to the ED. per notes, his blood pressure was noted to be hypotensive at 76/55. He was noted to be confused with right-sided weakness but per chart review seems like this has been present sincehis recent stroke. Noncontrast CT brain was negative for acute intracranial process. His lab work demonstrated anemia with hemoglobin of 8, hypokalemia and lactic acidosis. Abraham was admitted in teleneurology consult was requested. On chart review from [facility] he presented following a fall. He was found to have left pontine ischemic stroke with traumatic right subarachnoid hemorrhage and left ventricular IVH. The notesalso report history of syncope and seizure although not on AED. This morning, Abraham is resting in chair alert and oriented to person and place. No family is present in the room. He is unable to state the date and is confusing this hospitalization with his hospitalization last month. He continues to have right-sided weakness but unable to state if worse than hisbaseline. He does note continued memory issues since his stroke. No reported seizure-like activity since admission. Abraham endorses to alcohol use but not since his stroke. Per RN, cognition is improved compared to yesterday. 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[facility]) Atherosclerotic heart disease Benign prostatic hyperplasia Cerebral infarction ([facility]) COPD (chronic obstructive pulmonary disease) ([facility]) Hyperlipidemia Hypertension Hypothyroidism IBS (irritable bowel syndrome) Major depressive disorder Other bacterial infections of unspecified site Pancreatitis Seizures ([facility]) Traumatic brain injury ([facility]) Visual impairment No past surgical history on file. Allergies Allergies Allergen Reactions Morphine (Pf) [facility] RN does not know what type of reaction pt has to morphine Social History Social History Tobacco Use Smoking status: Every Day Current packs/day: 2.00 Average packs/day: 2.0 packs/day for 25.0 years (50.0 ttl pk-yrs) Types: Cigarettes Tobacco comments: smokes 3-4 cigarretes occasionally at [facility] Family History No family history on file. REVIEW OF SYSTEMS: Review of Systems Eyes: Negative for visual disturbance. Neurological: Positive for weakness. Negative for speech difficulty and numbness. Psychiatric/Behavioral: Positive for confusion. Exam General appearance: Awake and alert, in no distress Cardiovascular: Chest: Appears unlabored Extremities: Unable to tell through limits of video visit Abdomen: No overt distention noted through limits of video visit Skin: No rashes or lesions noted. Neurological Examination: Patient evaluation done through video consult. Patient currently sitting up in bed. Alert oriented x2. Participates and follows commands during exam. Symmetric face. EOMs intact. There is no dysarthria or aphasia. Raises all 4 extremities antigravity with drift to right arm and leg. Patient performs jjckak-ik-[id number] testing successfully. Limited neuro examination given the limitations of video unable to test reflexes or motor strength. Lab Review Imaging CT brain: Negative for acute intracranial process Clinical Impression: Abraham Corbin is a 63 y.o. male with past medical history significant for hypertension, hyperlipidemia, alcohol use, COPD, and recent CVA who presents to the ED after being found with altered mentalstatus in setting of hypotension. Unclear if he it was at his baseline as notes from his most recent hospitalization report he was only oriented x1. Unable to completely rule out seizure and previousrecord indicates he may have history of seizure. Recommendations: Ortho vitals Routine EEG Recommend obtaining records and imaging from hospitalization last month t Continue neuro checks and vitals per policy Will recommend frequent orientation, avoiding narcotics and sedating medications, patient should try to stay awake during daytime, open blinds during the day time, and minimize sleep interruption at night. Keep the room quiet and restful. If patient wears prescription glasses, wear glasses when applicable Will continue to follow for imaging results This was communicated to Dr Jonathan Sanders, BRIEN Guevara CNP, assisted with documentation during the assessment of this patient. Pleasenote case was done in collaboration with: Dr Milagro Sanders have spent 50+ mins personally reviewing previous history, imaging, and performing a face to facephysical assessment on this patient. If you have any further questions please feel free to contact us. Thank you for asking us to be part of this patient's care. [id number] Teleneurology Consult This note is dictated with the use of M*Modal.Please note that this dictation was completed with computer voice recognition software. Quite often unanticipated grammatical, syntax, homophones, and other interpretive errors are inadvertently transcribed by the computer software. Please disregard these errors. Please excuse any errors that have escaped final proofreading. Consults Tele-Neurology Telemedicine Consult Note Consent Statement: I discussed risks, benefits, and alternatives of a real-time synchronous audiovisual consultation with the patient (and any accompanying persons) including the risks that the patient's personal health details and medical records will be discussed over real-time, synchronous, interactive video/audio/telecommunication technology, the visitwill not be recorded without the express consent of both the provider and the patient, and that there are some limitations compared to [id number] evaluations. We elected to proceed. Kim Guevara, REVENUE COORDINATOR-DIRECTOR CENTER 08/27/24 1423 I, Bibi Chatterjee , provided the documented services for this patient. I personally reviewed previous medical history, laboratory studies, neuroimaging, and completed a fshk-zu-[id number] physical assessment on this patient via live audio/ video camera. To the best of my ability, the assessment andplan was discussed with patient and bedside staff. - Patient presented after a fall at rehabilitation facility. He was found by nursing staff after getting up and falling. Blood pressure in the ER was 76/55. Unclear if he lost consciousness - No report of seizure or seizure-like activity, losing control over bowel or bladder or tongue biting - Has history of alcohol use disorder, CHF, CAD - In July tripped and fell, was found to have subarachnoid hemorrhage, left intraventricular hemorrhage and left tentorial subdural hemorrhoid - MRI from 08/01/2024 reportedly showed small posterior left pontine infarct. - Patient was on Keppra prophylactically for a week after the fall - Neurology consulted for evaluation of altered mental status - Per [facility] neurology note (08/09/2024) patient was oriented x 2 - had recent lab work including B12, folate, B1 which did not reveal any deficiencies Exam: - Mental status: Oriented x1 (knows he is in the hospital). Disoriented to date (states year is 2014, month is October). Knows his date of (1960) but incorrectly states his age as 51 when he is 63 - He is able to follow simple commands Assessment/plan: Altered mental status Baseline unknown Patient would need official memory evaluation/cognitive evaluation as outpatient Check orthostatic vital signs Routine EEG We will request previous imaging studies for review Would recommend frequent orientation, avoiding narcotics and sedating medications, patient should try to stay awake during daytime, open blinds during the day time, and minimize sleep interruption atnight. Keep the room quiet and restful. If patient wears prescription glasses, wear glasses when applicable. Bibi Chatterjee MD MPH [facility] documented in this encounter Plan of Treatment Not on file documented as of this encounter Goals Goal Patient Goal Type Associated Problems Recent Progress Patient-Stated? Author SNF return General Yes Swetha Yi LSW Note: Evaluation of progress towards goal: Per phone conversation with pt spouse plan is to return to [facility] documented as of this encounter Visit Diagnoses Not on filedocumented in this encounter Care Teams Diabetes Trainer Relationship Specialty Start Date End Date Sebastián Boyer DO [address] [place] [address] PCP - General Family Medicine 08/26/24 documented as of this encounter
[2024-08-26 15:40] LABS: Glucometer 216 mg/dL (74-106)
[2024-08-26 17:37] LABS: Hematocrit 30.5 % (42.0-54.0); Hemoglobin 9.4 g/dL (14.0-18.0); Immature Granulocytes Abs Auto 0.04 10^3/uL (0.00-0.03); Immature Granulocytes Pct Auto 0.7 % (0.0-0.5); Lymphocytes Absolute Auto 0.4 10^3/uL (1.2-3.8); Lymphocytes Percent Auto 6.7 % (20.5-60.0); Mean Corpuscular HGB Conc 30.8 g/dL (29.9-35.2); Mean Corpuscular Hemoglobin 22.9 pg (25.9-34.0); Mean Corpuscular Volume 74.4 fL (80.0-94.0); Mean Platelet Volume 10.2 fL (9.5-13.5); Monocytes Absolute Auto 0.2 10^3/uL (0.3-0.8); Monocytes Percent Auto 3.8 % (1.7-12.0); Neutrophils Absolute Auto 5.2 10^3/uL (1.4-6.5); Neutrophils Percent Auto 88.8 % (43.0-75.0); Platelet Count 340 10^3/uL (150-450); Red Cell Distribution Width 21.3 % (11.0-15.0); White Blood Count 5.9 10^3/uL (4.0-11.0)
[2024-08-26 17:54] LABS: Potassium 4.6 mmol/L (3.5-5.1)
[2024-08-26 18:23] LABS: Vancomycin Trough 15.4 ug/mL (5.0-20.0)
[2024-08-26] MEDS: QUETIAPINE FUMARATE 25 MG TABLET 50 MG PO (21:23)
[2024-08-26] MEDS: ATORVASTATIN CALCIUM 40 MG TABLET PO (21:23)
[2024-08-26] MEDS: PANTOPRAZOLE SODIUM 40 MG VIAL IV (21:23)
[2024-08-26 22:19] LABS: Glucometer 225 mg/dL (74-106)
[2024-08-27] VITALS (52 sets, daily range): BP systolic 104–129; BP diastolic 62–81; PULSE 72–121; TEMP 36.4–36.6; O2SAT 93–96; BMI 21.0
[2024-08-27 04:14] LABS: Vitamin B12 438 pg/mL (232-1245)
[2024-08-27] MEDS: VANCOMYCIN HCL 1,000 MG in 0.9 % SODIUM CHLORIDE 250 ML 250 MG IV (04:15)
[2024-08-27] MEDS: PIPERACILLIN SODIUM/TAZOBACTAM 3.375 GM in 0.9 % SODIUM CHLORIDE 50 ML IV ×3 (04:22→20:40)
[2024-08-27] MEDS: IPRATROPIUM/ALBUTEROL SULFATE 3 ML AMPUL.NEB IH ×3 (05:22→23:05)
[2024-08-27 05:39] LABS: Basophils Percent Auto 0.1 % (0.2-2.0); Eosinophils Percent Auto 0.1 % (0.9-7.0); Hematocrit 28.2 % (42.0-54.0); Hemoglobin 8.6 g/dL (14.0-18.0); Immature Granulocytes Abs Auto 0.03 10^3/uL (0.00-0.03); Immature Granulocytes Pct Auto 0.3 % (0.0-0.5); Lymphocytes Absolute Auto 1.5 10^3/uL (1.2-3.8); Lymphocytes Percent Auto 16.9 % (20.5-60.0); Mean Corpuscular HGB Conc 30.5 g/dL (29.9-35.2); Mean Corpuscular Hemoglobin 22.7 pg (25.9-34.0); Mean Corpuscular Volume 74.4 fL (80.0-94.0); Mean Platelet Volume 10.6 fL (9.5-13.5); Monocytes Absolute Auto 0.8 10^3/uL (0.3-0.8); Monocytes Percent Auto 8.8 % (1.7-12.0); Neutrophils Absolute Auto 6.6 10^3/uL (1.4-6.5); Neutrophils Percent Auto 73.8 % (43.0-75.0); Platelet Count 315 10^3/uL (150-450); Red Blood Count 3.79 10^6/uL (4.70-6.10); Red Cell Distribution Width 20.9 % (11.0-15.0)
[2024-08-27 05:56] LABS: INR 0.98; Partial Thromboplastin Time 22.2 sec (22.3-36.2); Prothrombin Time 10.4 sec (9.0-11.6)
[2024-08-27 06:04] LABS: Alanine Aminotransferase 30 U/L (16-63); Albumin Globulin Ratio 0.9; Alkaline Phosphatase 98 U/L (46-116); Anion Gap 14.5; Aspartate Amino Transferase 15 U/L (15-37); BUN Creatinine Ratio 9.5; Bilirubin Total 0.6 mg/dL (0.2-1.0); Calcium 8.5 mg/dL (8.5-10.1); Carbon Dioxide 22.9 mmol/L (21.0-32.0); Chloride 106 mmol/L (98-107); Estimated GFR (African America >60 (>=60 mL/min/1.73m^2); Estimated GFR (Non-African Ame >60 (>=60 mL/min/1.73m^2); Globulin 3.4 g/dL; Glucose 120 mg/dL (74-106); Potassium 4.4 mmol/L (3.5-5.1); Sodium 139 mmol/L (136-145); Total Protein 6.4 g/dL (6.4-8.2)
[2024-08-27 06:19] LABS: Magnesium 1.7 mg/dL (1.8-2.4); Troponin I High Sensitivity 13.7 pg/mL (4.0-76.1)
--- NOTE | 2024-08-27 08:18 | SWNOTE1 ---
SW received an email from Zeina [facility] [place] and pt's insurance has approved pt to return. SW updated case management.
[2024-08-27] MEDS: SACUBITRIL/VALSARTAN 24 MG-26 MG TABLET 1 TAB PO ×2 (08:57→20:38)
[2024-08-27] MEDS: FOLIC ACID 1 MG TABLET PO (08:57)
[2024-08-27] MEDS: ENSURE ORIGINAL 237 ML BOTTLE PO ×2 (08:58→20:38)
[2024-08-27] MEDS: THIAMINE MONONITRATE (VIT B1) 100 MG TABLET PO (08:58)
[2024-08-27] MEDS: MAGNESIUM OXIDE 400 MG TABLET PO ×2 (08:58→20:40)
[2024-08-27] MEDS: FLUCONAZOLE 100 MG TABLET PO (09:02)
--- NOTE | 2024-08-27 10:49 | CM.NOTE ---
Rounds made with oscar Billings will consult on pt for further recommendations. Updated pt regarding plan of care. No discharge today, SW updated and will call [facility].
--- NOTE | 2024-08-27 11:48 | SWNOTE1 ---
WYATT received a call from Zeina at the [facility]. Pt is approved through tomorrow, if he does not discharge tomorrow the precert will need to be restarted. WYATT let case management know who will let Dr. Castillo know.
[2024-08-27 11:50] LABS: Glucometer 186 mg/dL (74-106)
[2024-08-27] MEDS: INSULIN ASPART 300 UNIT/3 ML PEN SUBQ (11:55)
--- NOTE | 2024-08-27 12:07 | PM.IMPN1 ---
Progress Note: A&P Assessment and Plan (1) Tachycardia: (2) Acute hypotension: (3) ETOH abuse: (4) COPD (chronic obstructive pulmonary disease): (5) Acute hypoxic respiratory failure: (6) Altered mental status: (7) Respiratory distress: (8) Thrombocythemia: (9) Hypokalemia: (10) Hyperglycemia: (11) Hypomagnesemia: (12) Hypocalcemia: (13) Chronic combined systolic (congestive) and diastolic (congestive) heart failure: (14) Hypertension: (15) Severe sepsis: (16) Sleep apnea: (17) Acute anemia: (18) Coagulopathy: (19) Moderate protein-calorie malnutrition: (20) Coronary artery disease: Plan Lactic acidosis, could be in the setting of severe sepsis as well as dehydration acute on chronic microcytic anemia and symptomatic, likely iron deficiency with no evidence of GI bleeding Delirium? UTI is negative, pt's mental status improving already Acute CVA was ruled out Adrenal insufficiency? - I will stop vancomycin IV, and Will continue with IV Zosyn pending repeat cultures, patient has been afebrile and no leukocytosis on lab review today -Hemoglobin appears to be stable after transfusion yesterday -I will start IV iron while the patient is here for 2 doses until his discharge - CT abdomen pelvis without contrast ordered today and was reviewed. -CXR was negative - SCDs instead of HSQ for DVT prophylaxis -Cortisol level checked, Started pt on Hydrocortisone 0.2 mg daily PO -Pending neuro recommendations -Will continue to follow closely, I discussed the plan with the pt in details, answered all his questions Internal Medicine - PN: Subj Subjective Interval history: Patient seen and examined at bedside. No events overnight. Actually patient is doing much better sitting up in bed. Cultures remain negative. He is on IV antibiotics. Pending neurology evaluation. Exam Narrative Exam Narrative: Common normals: no apparent distress Chest Common normals: inspection of chest normal Respiratory Common normals: normal respiratory effort and no retractions Auscultation: No wheezes no crackles. Good bilateral air entry. Cardio Common normals: regular rhythm and no murmurs; irregular rate Rate: tachycardic GI Common normals: Normal to inspection, nondistended, normoactive bowel sounds present and soft to palpation; tender (Mild diffuse, no rebound) Extremity Common normals: normal to inspection, full ROM, no clubbing, cyanosis or edema and no calf tenderness Constitutional Vital Signs, click to edit/add: Last Vital Signs Temp 98 F 08/27/24 07:33 Pulse 105 H 08/27/24 11:57 Resp 18 08/27/24 07:33 BP 105/72 08/27/24 11:53 Pulse Ox 96 08/27/24 11:30 O2 Del Method Room Air 08/27/24 07:33 O2 Flow Rate 2 08/27/24 00:00 FiO2 60 08/27/24 00:00 Internal Medicine - PN: Obj Da Labs Labs: Laboratory Results - last 24 hr 08/26/24 08/26/24 08/26/24 09:52 12:19 15:33 WBC RBC Hgb Hct MCV MCH MCHC RDW Plt Count MPV Neut % (Auto) Lymph % (Auto) [place] % (Auto) Eos % (Auto) Baso % (Auto) Neut # (Auto) Lymph # (Auto) [place] # (Auto) Eos # (Auto) Baso # (Auto) Abs Immat Gran (auto) Imm/Tot Granulo (auto) PT INR APTT Sodium Potassium Chloride Carbon Dioxide Anion Gap BUN Creatinine Est GFR ( Amer) Est GFR (Non-Af Amer) BUN/Creatinine Ratio Glucose Calcium Magnesium Total Bilirubin AST ALT Alkaline Phosphatase Troponin I High Sens NT-Pro-B Natriuret Pep Total Protein Albumin Globulin Albumin/Globulin Ratio Vitamin B12 438 Cortisol 1.8 L Vancomycin Trough POC Glucose 216 H Blood Type A Positive Antibody Screen Negative Crossmatch See Detail 08/26/24 08/26/24 08/26/24 16:46 17:30 22:17 WBC 5.9 RBC 4.10 L Hgb 9.4 L Hct 30.5 L MCV 74.4 L MCH 22.9 L MCHC 30.8 RDW 21.3 H Plt Count 340 MPV 10.2 Neut % (Auto) 88.8 H Lymph % (Auto) 6.7 L [place] % (Auto) 3.8 Eos % (Auto) 0.0 L Baso % (Auto) 0.0 L Neut # (Auto) 5.2 Lymph # (Auto) 0.4 L [place] # (Auto) 0.2 L Eos # (Auto) 0.0 Baso # (Auto) 0.0 Abs Immat Gran (auto) 0.04 H Imm/Tot Granulo (auto) 0.7 H PT INR APTT Sodium Potassium 4.6 Chloride Carbon Dioxide Anion Gap BUN Creatinine Est GFR ( Amer) Est GFR (Non-Af Amer) BUN/Creatinine Ratio Glucose Calcium Magnesium Total Bilirubin AST ALT Alkaline Phosphatase Troponin I High Sens NT-Pro-B Natriuret Pep Total Protein Albumin Globulin Albumin/Globulin Ratio Vitamin B12 Cortisol Vancomycin Trough 15.4 POC Glucose 225 H Blood Type Antibody Screen Crossmatch 08/27/24 08/27/24 05:23 11:39 WBC 9.0 RBC 3.79 L Hgb 8.6 L Hct 28.2 L MCV 74.4 L MCH 22.7 L MCHC 30.5 RDW 20.9 H Plt Count 315 MPV 10.6 Neut % (Auto) 73.8 Lymph % (Auto) 16.9 L [place] % (Auto) 8.8 Eos % (Auto) 0.1 L Baso % (Auto) 0.1 L Neut # (Auto) 6.6 H Lymph # (Auto) 1.5 [place] # (Auto) 0.8 Eos # (Auto) 0.0 Baso # (Auto) 0.0 Abs Immat Gran (auto) 0.03 Imm/Tot Granulo (auto) 0.3 PT 10.4 INR 0.98 APTT 22.2 L Sodium 139 Potassium 4.4 Chloride 106 Carbon Dioxide 22.9 Anion Gap 14.5 BUN 9.0 Creatinine 0.95 Est GFR ( Amer) >60 Est GFR (Non-Af Amer) >60 BUN/Creatinine Ratio 9.5 Glucose 120 H Calcium 8.5 Magnesium 1.7 L Total Bilirubin 0.6 AST 15 ALT 30 Alkaline Phosphatase 98 Troponin I High Sens 13.7 NT-Pro-B Natriuret Pep 2577.0 H* Total Protein 6.4 Albumin 3.0 L Globulin 3.4 Albumin/Globulin Ratio 0.9 Vitamin B12 Cortisol Vancomycin Trough POC Glucose 186 H Blood Type Antibody Screen Crossmatch
[2024-08-27] MEDS: IRON SUCROSE COMPLEX 100 MG in 0.9 % SODIUM CHLORIDE 100 ML 420 MG IV (12:50)
--- NOTE | 2024-08-27 13:23 | SWNOTE1 ---
Faxed updates to the [facility].
[2024-08-27] MEDS: FLUDROCORTISONE ACETATE 0.1 MG TABLET 0.2 MG PO (13:59)
[2024-08-27 16:25] LABS: Glucometer 124 mg/dL (74-106)
[2024-08-27 20:24] LABS: Glucometer 115 mg/dL (74-106)
[2024-08-27] MEDS: QUETIAPINE FUMARATE 25 MG TABLET 50 MG PO (20:38)
[2024-08-27] MEDS: ACETAMINOPHEN 500 MG TABLET 1000 MG PO (20:39)
[2024-08-27] MEDS: ATORVASTATIN CALCIUM 40 MG TABLET PO (20:40)
[2024-08-27] MEDS: PANTOPRAZOLE SODIUM 40 MG VIAL IV (20:43)
[2024-08-28] VITALS (21 sets, daily range): BP systolic 74–106; BP diastolic 56–79; PULSE 88–128; TEMP 36.3–36.7; O2SAT 92–100
--- NOTE | 2024-08-28 00:05 | ECG_ITS ---
[facility] Test Date: 2024-08-28 Pat Name: SARAY CLEMONS Department: Room: 2221 Gender: Male Pelota Maker: : [id number] Requested By: [id number] Order Number: [id number] Alejandra MD: LAKEISHA HERNANDES M.D. Measurements Intervals [place] Rate: 109 P: 45 [place]: 138 QRS: -50 QRSD: 88 T: 100 QT: 342 QTc: 406 Interpretive Statements 1120 Sinus tachycardia 2630 Left anterior fascicular block 3113 Cannot rule out anterior myocardial infarction, probably old 5222 Moderate voltage criteria for LVH, may be normal variant 9150 abnormal ECG Compared to ECG 08/24/2024 13:36:59 No significant changes Electronically Signed On 08-28-2024 19:58:17 EDT by LAKEISHA HERNANDES M.D.
[2024-08-28] MEDS: IPRATROPIUM/ALBUTEROL SULFATE 3 ML AMPUL.NEB IH ×3 (05:01→22:01)
[2024-08-28 05:08] LABS: Basophils Percent Auto 0.5 % (0.2-2.0); Eosinophils Absolute Auto 0.7 10^3/uL (0.0-0.7); Eosinophils Percent Auto 7.8 % (0.9-7.0); Hematocrit 33.2 % (42.0-54.0); Hemoglobin 10.1 g/dL (14.0-18.0); Immature Granulocytes Abs Auto 0.03 10^3/uL (0.00-0.03); Immature Granulocytes Pct Auto 0.4 % (0.0-0.5); Lymphocytes Absolute Auto 3.1 10^3/uL (1.2-3.8); Lymphocytes Percent Auto 36.3 % (20.5-60.0); Mean Corpuscular HGB Conc 30.4 g/dL (29.9-35.2); Mean Corpuscular Hemoglobin 22.7 pg (25.9-34.0); Mean Corpuscular Volume 74.8 fL (80.0-94.0); Mean Platelet Volume 9.9 fL (9.5-13.5); Monocytes Absolute Auto 0.8 10^3/uL (0.3-0.8); Monocytes Percent Auto 8.9 % (1.7-12.0); Neutrophils Absolute Auto 3.9 10^3/uL (1.4-6.5); Neutrophils Percent Auto 46.1 % (43.0-75.0); Platelet Count 313 10^3/uL (150-450); Red Blood Count 4.44 10^6/uL (4.70-6.10); Red Cell Distribution Width 21.6 % (11.0-15.0); White Blood Count 8.4 10^3/uL (4.0-11.0)
[2024-08-28] MEDS: PIPERACILLIN SODIUM/TAZOBACTAM 3.375 GM in 0.9 % SODIUM CHLORIDE 50 ML IV ×3 (05:17→21:29)
[2024-08-28 05:25] LABS: INR 1.01; Partial Thromboplastin Time 23.4 sec (22.3-36.2); Prothrombin Time 10.7 sec (9.0-11.6)
[2024-08-28 05:38] LABS: Alanine Aminotransferase 26 U/L (16-63); Albumin Globulin Ratio 0.8; Alkaline Phosphatase 102 U/L (46-116); Anion Gap 11.9; Aspartate Amino Transferase 13 U/L (15-37); BUN Creatinine Ratio 9.6; Bilirubin Total 0.3 mg/dL (0.2-1.0); Carbon Dioxide 27.9 mmol/L (21.0-32.0); Chloride 104 mmol/L (98-107); Estimated GFR (African America >60 (>=60 mL/min/1.73m^2); Estimated GFR (Non-African Ame >60 (>=60 mL/min/1.73m^2); Globulin 3.7 g/dL; Glucose 114 mg/dL (74-106); Potassium 3.8 mmol/L (3.5-5.1); Sodium 140 mmol/L (136-145); Total Protein 6.7 g/dL (6.4-8.2)
[2024-08-28 05:40] LABS: Magnesium 1.5 mg/dL (1.8-2.4); Troponin I High Sensitivity 12.9 pg/mL (4.0-76.1)
[2024-08-28] MEDS: THIAMINE MONONITRATE (VIT B1) 100 MG TABLET PO (08:02)
[2024-08-28] MEDS: ENSURE ORIGINAL 237 ML BOTTLE PO ×2 (08:02→21:29)
[2024-08-28] MEDS: SACUBITRIL/VALSARTAN 24 MG-26 MG TABLET 1 TAB PO ×2 (08:02→21:29)
[2024-08-28] MEDS: FLUDROCORTISONE ACETATE 0.1 MG TABLET 0.2 MG PO (08:03)
[2024-08-28] MEDS: MAGNESIUM OXIDE 400 MG TABLET PO ×2 (08:03→21:29)
[2024-08-28] MEDS: FOLIC ACID 1 MG TABLET PO (08:03)
--- NOTE | 2024-08-28 09:16 | REH.PTDLY ---
Physical Therapy Daily Note PT Daily Note/Assess Start: 08/27/24 09:14 Freq: Status: Active Protocol: Document 08/28/24 09:08 RICHA (Rec: 08/28/24 09:15 RICHA [id number]) Physical Therapy Daily Note/Assessment Time In 08:39 Time Out 08:53 Subjective Pt in bed upon arrival, agreeable to therapy. No current complaints Therapeutic Exercise 8 Minutes (minutes) Therapeutic Exercise 1 Units Therapeutic Exercise Passive stretching to R ankle/foot prior to rx. Supine Treatment Elton AROM AP, SLR, hip abd slides 10x ea. Seated B LE marching, LAQ, hip abd step outs 10x for improved strength. Cues to keep pt on task. Therapeutic Activity 6 Minutes (minutes) Therapeutic Activity 0 Units Therapeutic Activity Supine to sit transfer CGA, pt using bed rail to assist Comments in transfer. Pt needs assistance to don shoes. Some unsteadiness noted with seated balance bedside. Sit to stand transfers CGA from elevated bed. Gait training with RW 35 feet, pt declines ambulating further at this time due to fatigue. Pt sits up in chair post rx to eat breakfast with chair alarm on. Total Therapy 14 Minutes Total Physical 1 Therapy Units Daily Note Summary Pt fatigues easily with gait training, declines ambulating further today due to this. Cues during rx to keep pt on task. Unsteadiness noted with seated balance bedside. Pt will benefit from skilled rehab at [facility] to regain strength.
--- NOTE | 2024-08-28 11:29 | SWNOTE1 ---
Called Zeina at the [facility] to let them know pt will not be discharging today. [facility] will restart precert today for return.
[2024-08-28 11:42] LABS: Glucometer 138 mg/dL (74-106)
--- NOTE | 2024-08-28 12:12 | CM.NOTE ---
Rounds made with Dr. Castillo. Dr. Castillo reviews findings with Mr. Corbin and . All questions answered. Continue to follow-awaiting culture results.
--- OUTSIDE RECORDS SUMMARY | 2024-08-28 12:36 | XMS_ITS | Encounter Summary ---
Author Organization [facility] Address [facility] [place] [address] Care Team Providers Care Track Inspector Name Role Phone Juan ManuelOswaldo sin Unavailable [phone] Enoch Aguirre Unavailable [phone] sOwaldo Turpin Primary Care Provider [phone] Dione Montoya DO Unavailable Source Comments In the event this information is protected by the Federal Confidentiality of Alcohol and Drug AbusePatient Records regulations: The Federal rules restrict any use of the information to criminally investigate or prosecute any alcohol or drug abuse patient.[facility] Encounter Details Date Type Department Care Team (Late st Contact Info) Description 04/08/2022 Patient Msg General Surgery [address] [place] [address] [place] [address] [address] [place] [address] Office Follow Up Summary_Dr. Hoang Bain Social History Tobacco Use Types Packs/Day Years Used Date Smoking Tobacco: Every Day Cigarettes Smokeless Tobacco: Never Alcohol Use Standard Drinks/Week Comments Yes 0 (1 standard drink = 0.6 oz pur e alcohol) PHQ-2 Answer Date Recorded PHQ-2 score 5 05/16/2021 Area Deprivation Index Answer Date Moisés rded National Score (1-100), lower number is lower ri sk 56 03/23/2022 State Score (1-10), lower number is lower risk N ot on file 03/23/2022 Data from: https://www.neighborhoodatlas.medicine.[facility]/. Last address used for calculation [address] 03/23/2022 Sex and Gender Information Value Date Recorded Sex Assigned at Male 03/30/2021 7:16 AM EST Legal Sex Male 1:02 PM EDT Gender Identity Male 03/30/2021 7:16 AM EST Sexual Orientation Straight 03/30/2021 7: 16 AM EST documented as of this encounter Plan of Treatment Not on file documented as of this encounter Visit Diagnoses Not on filedocumented in this encounter Additional Health Concerns Infection Onset Date Last Indicated Resolved Time COVID-19 Rule-Out 04/27/2022 04/27/2022 04/27/2022 6:21 AM EST COVID-19 Rule-Out 05/05/2022 05/05/2022 05/05/2022 2:55 PM EST Respiratory Rule-Out 05/05/2022 05/05/2022 023 2:55 PM EST C. difficile Comment:Will reevaluate isolation precautions 14 days post-positive test 05/17/2022 05/17/2022 06/16/2022 8:51 PM E DT documented as of this encounter Care Teams Track Inspector Relationship Specialty Start Date End Date Oswaldo Turpin [address] [place] [address] PCP - General Family Medicine 04/11/22 Oswaldo Turpin [address] [place] [id number] Referring Family Medicine 10/01/20 04/10/22 Enoch Aguirre [address] [facility] [address] [place] [address] General Surgery 01/05/22 Dione Montoya DO [address] [facility] [address] [place] [address] Referring Gastroenterology 09/30/23 documented as of this encounter
--- OUTSIDE RECORDS SUMMARY | 2024-08-28 12:36 | XMS_ITS | Clinical Summary ---
Author Organization [facility] Address [address] [place] [address] Care Team Providers Care Archery Equipment Repairer Name Role Phone Oswaldo Turpin Primary Care Provider [phone] Allergies Active Allergy Reactions Criticality Noted Date Comments Morphine Other (See Comments) 09/17/2021 [facility] RN does not know what type of reaction pt has to morphine Medications ascorbic acid (VITAMIN C) 500 MG tablet Take 1 tablet (500 mg total) by mouth nightly. 0 3 Active aspirin 81 MG chewable tabletIndicatio ns:Atherosclero tic Disease Chew 1 tablet (81 mg total) in the morning. 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 0 3 Active ferrous sulfate 325 (65 FE) MG tablet Take 1 tablet by mouth every Monday, Monday, and Monday. 0 3 Active folic acid (FOLVITE) 1 MG tablet Take 1 tablet (1 mg total) by mouth in the morning. 0 3 Active melatonin tablet Take 2 tablets (6 mg total) by mouth nightly. 0 3 Active multivitamin with minerals tablet tablet Take 1 tablet by mouth nightly. 0 3 Active oxyCODONE (ROXICODONE) 5 MG immediate release tabletIndicatio ns:Chronic Pain Take 1 tablet (5 mg total) by mouth every 6 (six) hours as needed for severe pain Indications: Chronic Pain. 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 Pancreatitis 05/19/2022 Assessment & Plan (06/04/2022 5:47 PM EDT): Progress Treatment Plan Immunizations Immunization Administration Dates Next Due Jasper Sars-cov-2 Vaccination 01/29/2021 Social History Tobacco Use Types Packs/Day Years Used Date Smoking Tobacco: Every Day Cigarettes 1 31.3 Started: 05/03/1993 Smokeless Tobacco: Never Tobacco Cessation:Ready to Q uit: Yes; Counseling Given: No Alcohol Use Standard Drinks/Week Comments Yes 2 (1 standard drink = 0.6 oz pur e alcohol) Sex and Gender Information Value Date Recorded Sex Assigned at Not on file Legal Sex Male 2:52 PM EDT Gender Identity Not on file Sexual Orientation Not on file Last Filed Vital Signs Vital Sign Reading Time Taken Comments Blood Pressure 117/66 06/11/2022 7:48 AM EDT Pulse 86 06/11/2022 7:48 AM EDT Temperature 36.1 C (97 F) 06/11/2022 7:48 AM EDT Respiratory Rate 18 06/10/2022 7:40 PM EDT Oxygen Saturation 95% 06/11/2022 7:48 AM EDT Inhaled Oxygen Concentration - - Weight 54.1 kg (119 lb 4 oz) 06/11/2022 4:00 AM EDT Height 172.7 cm (5' 8 ) 06/02/2022 1:48 PM EDT Body Mass Index 18.13 06/02/2022 1:48 PM EDT Plan of Treatment Health Maintenance Due Date Last Done Comments CT Colonography 1960 FIT-DNA (Cologuard) 1960 FIT 1960 FOBT 1960 Sigmoidoscopy 1960 Annual Visit Topic 1961 MMR Vaccines (1 of 1 - Stand alejandra series) 1961 Hepatitis C Screening 1978 DTaP/Tdap/Td Vaccines (1 - Tdap) 09/29/1979 Pneumococcal Vaccine: Pediat rics (0 to 5 years) and At-Risk Patients (6 to 64 Years) (1 of 4 - PCV) 09/29/1979 PSA Test 09/29/2015 Colonoscopy 06/20/2034 06/20/2024 Colorectal Cancer Screening 06/20/2034 HIB Vaccines Aged Out No longer eligi ble based on patient's age to complete this topic HPV Vaccines Aged Out No longer eligi ble based on patient's age to complete this topic Hepatitis A Vaccines Aged Out No long er eligible based on patient's age to complete this topic Hepatitis B Vaccines Aged Out No long er eligible based on patient's age to complete this topic IPV Vaccines Aged Out No longer eligi ble based on patient's age to complete this topic Meningococcal Vaccine Aged Out No vikas jimena eligible based on patient's age to complete this topic Advance Directives * Full Resuscitation (Latest Code Status on File) Date Activated Date Inactivated Comments 06/01/2022 9:01 PM 06/11/2022 1:05 PM * Full Resuscitation Date Activated Date Inactivated Comments 05/19/2022 5:57 PM 06/01/2022 8:46 PM Care Teams Archery Equipment Repairer Relationship Specialty Start Date End Date Oswaldo Turpin [address] [place] [address] PCP - General 05/20/22
--- OUTSIDE RECORDS SUMMARY | 2024-08-28 12:36 | XMS_ITS | Encounter Summary ---
Author Organization [facility] Address [address] [place] [address] Care Team Providers Care Delivery Mgr Name Role Phone Enoch Aguirre Unavailable [phone] Oswaldo Turpin Primary Care Provider [phone] Dione Montoya DO Unavailable Source Comments In the event this information is protected by the Federal Confidentiality of Alcohol and Drug AbusePatient Records regulations: The Federal rules restrict any use of the information to criminally investigate or prosecute any alcohol or drug abuse patient.[facility] Encounter Details Date Type Department Care Team (Late st Contact Info) Description 07/19/2022 [place] [id number] Provider, [facility] MRI Screening Questionnaire Completion Required Social History Tobacco Use Types Packs/Day Years Used Date Smoking Tobacco: Every Day Cigarettes Smokeless Tobacco: Never Alcohol Use Standard Drinks/Week Comments Not Currently 0 (1 standard drink = 0.6 oz pur e alcohol) PHQ-2 Answer Date Recorded PHQ-2 score 5 05/16/2021 Area Deprivation Index Answer Date Moisés rded National Score (1-100), lower number is lower ri sk 56 03/23/2022 State Score (1-10), lower number is lower risk N ot on file 03/23/2022 Data from: https://www.neighborhoodatlas.medicine.[facility]/. Last address used for calculation [address] 03/23/2022 Sex and Gender Information Value Date Recorded Sex Assigned at Male 03/30/2021 7:16 AM EST Legal Sex Male 1:02 PM EDT Gender Identity Male 03/30/2021 7:16 AM EST Sexual Orientation Straight 03/30/2021 7: 16 AM EST documented as of this encounter Functional Status * Are you deaf or do you have serious difficulty hearing? Answer Date of Assessment Author No 05/19/2022 2:12 PM EDT Shivam Cartagena RN * Are you blind or do you have serious difficulty seeing, even when wearing glasses? Answer Date of Assessment Author No 05/19/2022 2:12 PM EDT Shivam Cartagena RN * Do you have serious difficulty walking or climbing stairs? Answer Date of Assessment Author No 05/19/2022 2:12 PM EDT Shivam Cartagena RN * Do you have difficulty dressing or bathing? Answer Date of Assessment Author No 05/19/2022 2:12 PM EDT Shivam Cartagena RN * Because of a physical, mental, or emotional condition, do you have difficulty doing errands alone such as visiting a doctor's office or shopping? Answer Date of Assessment Author No 05/19/2022 2:12 PM EDT Shivam Cartagena RN documented as of this encounter Mental Status * Because of a physical, mental, or emotional condition, do you have serious difficulty concentrating, remembering, or making decisions? Answer Entry Date Author No 05/19/2022 2:12 PM EDT Shivam Cartagena RN documented in this encounter Plan of Treatment Not on file documented as of this encounter Visit Diagnoses Not on filedocumented in this encounter Care Teams Delivery Mgr Relationship Specialty Start Date End Date Oswaldo Turpin [address] [place] [phone] PCP - General Family Medicine 04/11/[address] [facility] [address] [place] [address] General Surgery 01/05/22 Dione Montoya DO [address] [facility] [address] [place] [address] Referring Gastroenterology 09/30/23 documented as of this encounter
--- OUTSIDE RECORDS SUMMARY | 2024-08-28 12:36 | XMS_ITS | Clinical Summary ---
Author Organization [facility] Address [address] [id number] Care Team Providers Care Wilton Weaver Name Role Phone Enoch Aguirre Unavailable [phone] Oswaldo Turpin Primary Care Provider [phone] Dione Montoya DO Unavailable Allergies No known active allergies Medications pantoprazole DR (PROTONIX) 40 mg tablet Take 40 mg by mouth once daily. 021 Active dapagliflozin propanediol (FARXIGA) 10 mg tablet Take 10 mg by mouth daily with breakfast. Active INV NITROGLYCERIN 0.4 MG SUBLINGUAL TABLET (IRB 23-702) Dissolve 0.4 mg under the tongue one time only. Place tablet under tongue and allow to dissolve; do not chew or break. For Investigational Drug Use Only. PI: Teena Carrillo MD. Active rosuvastatin (CRESTOR) 20 mg tablet Take 20 mg by mouth once daily. Active sacubitril-valsa rtan (ENTRESTO) 24-26 mg tablet Take 1 tablet by mouth two times a day. Active magnesium chloride (SLOW-MAG ORAL) Take 1 % by mouth as needed. Active spironolactone (ALDACTONE) 25 mg tablet Take 12.5 mg by mouth once daily. Take 0.5 tablets (12.5 mg) by mouth once daily Active QUEtiapine (SEROQUEL) 50 mg tablet 1 tablet by ORAL/FEEDING TUBE route daily at bedtime. Active acetaminophen (TYLENOL) 325 mg tablet 2 tablets by ORAL/FEEDING TUBE route every 6 hours as needed for pain. Active folic acid 1 mg tablet 1 tablet once daily. Active insulin lispro 100 unit/mL injection ADMINISTER CORRECTIONAL [...] insulin regimen in the previous 24 hours. Active metoprolol tartrate, short acting, (LOPRESSOR) 25 mg tablet 1 tablet by ORAL/FEEDING TUBE route every 12 hours. 180 tablet Active ondansetron (ZOFRAN) 4 mg tablet 1 tablet by CORPAK route every 6 hours as needed. Active thiamine (VITAMIN B1) 100 mg tablet 1 tablet by ORAL/FEEDING TUBE route once daily. Active SUMAtriptan (IMITREX) 50 mg tablet Take 50 mg by mouth as needed. 2024 Discontinued escitalopram oxalate (LEXAPRO) 20 mg tablet Take 1 tablet by mouth once daily. Oral/ feeding tube 30 tablet 023 2024 Discontinued QUEtiapine (SEROQUEL) 25 mg tablet 50 mg. 023 2024 Discontinued clopidogrel (PLAVIX) 75 mg tablet Take 75 mg by mouth once daily. 2024 Discontinued Cyclobenzap and Irritant Cntr Irr2 10 mg kit 1 % once daily. 08/14 Discontinued escitalopram oxalate (LEXAPRO) 10 mg tablet Take 30 mg by mouth once daily. 2024 Discontinued melatonin 10 mg tab Take 1 tablet by mouth once daily. 2024 Discontinued metoprolol succinate ER (TOPROL XL) 50 mg 24 hr tablet Take 50 mg by mouth once daily. 2024 Discontinued pregabalin (LYRICA) 75 mg capsule Take 75 mg by mouth two times a day. 2024 Discontinued sildenafil (VIAGRA) 100 mg tablet Take 100 mg by mouth once daily as needed. 2024 Discontinued tamsulosin (FLOMAX) 0.4 mg Take 0.4 mg by mouth once daily. 2024 Discontinued traMADol (ULTRAM) 50 mg tablet Take 50 mg by mouth every 6 hours as needed for pain. 2024 Discontinued peg 3350-Electrolyte s (GOLYTELY) 236-22.74-6.74 -5.86 gram suspension Refer to printed patient instructions that will be mailed to you. 4000 mL 025 2024 Discontinued fluconazole (DIFLUCAN) 100 mg tablet Take 2 (two) tablets by mouth on day 1, then take 1 (one) tablet daily for 13 days. Avoid taking seroquel while taking this medication, then resume seroquel afterwards. 15 tablet 025 2024 Discontinued heparin 5,000 unit/mL injection Inject 1 mL subcutaneously every 12 hours for 7 days. 14 mL 025 2024 oxyCODONE IR (ROXICODONE) 5 mg immediate release tablet 0.5 tablets by ORAL/FEEDING TUBE route every 6 hours as needed for up to 5 days. 0 025 2024 Active Problems Patient Care Coordination No te Formatting of this note migh t be different from the original. Indication for ICU Admission: Traumatic Subarachnoid Hemorrhage Important/Relevant PMH/PSH: Dysphagia Status post tracheostomy (2022) Nicotine use disorder - 1.0ppd, since 1986 History of seizures - Last seizure was 5-10 yrs ago Stroke with residual LUE/LLE weakness (on plavix) Anxiety and depression COPD LUZ (no CPAP at home) HTN CHF (last ECHO 05/26 w/ EF = 43 5) Preadmission Hospital Course: 63 year old [...] origin. CCT dispatched for emergent transfer to [facility] ED for further NSGY evaluation and management in the setting of above. Chronological List of Surgeries and Major Events (Diagnosis): (Surgeries in bold characters) 07/31/2024: Admitted to SICU intubated. Extubated to [place] Major Events within past 24 hours Phenobarbital [...] GI: - Diet: NPO. Failed bedside swallow, CHAIR TRIMMER consult - Decompression: None - Nausea regimen: [...] out of ICU: Neuro monitoring Disposition: SICU Problem Noted Date Diagnosed Date Cystitis 08/13/2024 Assessment & Plan (08/14/2024 9:56 AM EDT): - UA with moderate bacteria, culture with mixed microbiota - Ceftriaxone for 5 days (finish 08/13) Assessment & Plan (08/13/2024 10:05 AM EDT): - UA with moderate bacteria, culture with mixed microbiota - Ceftriaxone for 5 days (finish 08/13) Traumatic encephalopathy 08/09/2024 Assessment & Plan (08/12/2024 8:59 AM EDT): Evidence on 20min BEM UA with moderate bacteria, culture in process - Adding ceftriaxone pending urine culture / Mixed microbiota- cont Ceftriaxone Assessment & Plan (08/11/2024 11:17 AM EDT): Evidence on 20min BEM UA with moderate bacteria, culture in process - Adding ceftriaxone pending urine culture / Mixed microbiota- cont Ceftriaxone Assessment & Plan (08/10/2024 9:47 AM EDT): Evidence on 20min BEM UA with moderate bacteria, culture in process - Adding ceftriaxone pending urine culture /7 Mixed microbiota- cont Ceftriaxone Assessment & Plan (08/09/2024 12:34 PM EDT): Evidence on 20min BEM UA with moderate bacteria, culture in process - Adding ceftriaxone pending urine culture Vocal cord dysfunction 08/06/2024 Assessment & Plan (08/14/2024 9:56 AM EDT): - ENT consult - Spoke with Dr Euceda via text - He is to send Message to ENT scheduling team for out pt follow up Assessment & Plan (08/13/2024 7:24 AM EDT): - ENT consult - Spoke with Dr Euceda via text - He is to send Message to ENT scheduling team for out pt follow up Assessment & Plan (08/12/2024 8:59 AM EDT): - ENT consult - Spoke with Dr Euceda via text - He is to send Message to ENT scheduling team for out pt follow up Assessment & Plan (08/11/2024 11:17 AM EDT): - ENT consult - Spoke with Dr Euceda via text - He is to send Message to ENT scheduling team for out pt follow up Assessment & Plan (08/10/2024 9:47 AM EDT): - ENT consult - Spoke with Dr Euceda via text - He is to send Message to ENT scheduling team for out pt follow up Assessment & Plan (08/09/2024 9:50 AM EDT): - ENT consult - Spoke with Dr Euceda via text - He is to send Message to ENT scheduling team for out pt follow up Assessment & Plan (08/08/2024 12:39 PM EDT): - ENT consult - Spoke with Dr Euceda via text - He is to send Message to ENT scheduling team for out pt follow up Assessment & Plan (08/07/2024 10:08 AM EDT): -ENT consult -spoke with Dr Euceda via text -He is to send Message to ENT scheduling team for out pt follow up Assessment & Plan (08/06/2024 7:53 AM EDT): ENT consult spoke with Dr Euceda via text He is to send Message to ENT scheduling team for out pt follow up Hyponatremia 08/06/2024 Assessment & Plan (08/14/2024 9:56 AM EDT): - Nephrology following. 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 FWF 50cc Q8h, continue salt tabs, no need for fluid restriction as not taking PO - Daily labs - Stabilized Assessment & Plan (08/13/2024 10:05 AM EDT): - Nephrology following. 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 FWF 50cc Q8h, continue salt tabs, no need for fluid restriction as not taking PO - Daily labs - Stabilized Assessment & Plan (08/12/2024 12:41 PM EDT): - Nephrology following. 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 FWF 50cc Q8h, continue salt tabs, no need for fluid restriction as not taking PO - Daily labs - Stablilizing Assessment & Plan (08/11/2024 11:17 AM EDT): - Nephrology following. 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 FWF 50cc Q8h, continue salt tabs, no need for fluid restriction as not taking PO - Daily labs 08/09: Improving, NA 132 today 08/10 Na improved 134 Assessment & Plan (08/10/2024 9:47 AM EDT): - Nephrology following. 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 FWF 50cc Q8h, continue salt tabs, no need for fluid restriction as not taking PO - Daily labs 08/09: Improving, NA 132 today 08/10 Na improved 134 Assessment & Plan (08/09/2024 12:34 PM EDT): - Nephrology following. 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 FWF 50cc Q8h, continue salt tabs, no need for fluid restriction as not taking PO - Daily labs 08/09: Improving, NA 132 today Assessment & Plan (08/08/2024 12:39 PM EDT): - Nephrology following. 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 Reduce FWF, continue salt tabs, no need for fluid restriction as not taking PO -Daily labs -AM labs pending, will follow up Assessment & Plan (08/06/2024 2:43 PM EDT): 08/06- nephrology consult salt tabs for 48 hrs send osmolytes 08/06 hold Aldactone today await nephrology input -start N . saline at 50 cc/ hr Alcohol abuse 08/02/2024 Assessment & Plan (08/14/2024 9:56 AM EDT): -Patient reported to be heavy drinker per family -Started on phenobarb taper 08/02, now completed -CIWA Assessment & Plan (08/13/2024 7:24 AM EDT): -Patient reported to be heavy drinker per family -Started on phenobarb taper 08/02, now completed -CIWA Assessment & Plan (08/12/2024 8:59 AM EDT): -Patient reported to be heavy drinker per family -Started on phenobarb taper 08/02, now completed -CIWA Assessment & Plan (08/11/2024 11:17 AM EDT): -Patient reported to be heavy drinker per family -Started on phenobarb taper 08/02, now completed -CIWA Assessment & Plan (08/10/2024 9:47 AM EDT): -Patient reported to be heavy drinker per family -Started on phenobarb taper 08/02, now completed -CIWA Assessment & Plan (08/09/2024 9:50 AM EDT): -Patient reported to be heavy drinker per family -Started on phenobarb taper 08/02, now completed -CIWA Assessment & Plan (08/08/2024 9:11 AM EDT): -Patient reported to be heavy drinker per family -Started on phenobarb taper 08/02, now completed -WA Assessment & Plan (08/07/2024 10:08 AM EDT): -Patient reported to be heavy drinker per family -Started on phenobarb taper 08/02, now completed -WA Assessment & Plan (08/06/2024 7:53 AM EDT): -Patient reported to be heavy drinker per family -Started on phenobarb taper 08/02 -CIWA Assessment & Plan (08/05/2024 9:50 AM EDT): -Patient reported to be heavy drinker per family -Started on phenobarb taper 08/02 -CIWA Assessment & Plan (08/04/2024 2:44 PM EDT): -Patient reported to be heavy drinker per family -Started on phenobarb taper 08/02 -CIWA Assessment & Plan (08/03/2024 1:28 PM EDT): -Patient reported to be heavy drinker per family -Started on phenobarb taper 08/02 -CIWA Assessment & Plan (08/02/2024 12:20 PM EDT): -Patient reported to be heavy drinker per family -Started on phenobarb taper 08/02 -WA Closed fracture of multiple ribs of right side 0 08/01/2024 Assessment & Plan (08/14/2024 9:56 AM EDT): - Subacute 9-12th posterior rib fractures - No pain on exam - Stable RA - MM pain control - Aggressive IS Assessment & Plan (08/13/2024 10:05 AM EDT): - Subacute 9-12th posterior rib fractures - No pain on exam - Stable RA - MM pain control - Aggressive IS Assessment & Plan (08/12/2024 8:59 AM EDT): - Subacute 9-12th posterior rib fractures - No pain on exam this AM - Stable RA - MM pain control - Aggressive IS Assessment & Plan (08/11/2024 11:17 AM EDT): - Subacute 9-12th posterior rib fractures - No pain on exam this AM - Stable RA - MM pain control - Aggressive IS Assessment & Plan (08/10/2024 9:47 AM EDT): - Subacute 9-12th posterior rib fractures - No pain on exam this AM - Stable RA - MM pain control - Aggressive IS Assessment & Plan (08/09/2024 9:50 AM EDT): - Subacute 9-12th posterior rib fractures - No pain on exam this AM - Stable RA - MM pain control - Aggressive IS Assessment & Plan (08/08/2024 9:11 AM EDT): - Subacute 9-12th posterior rib fractures - No pain on exam this AM - Stable RA - MM pain control - Aggressive IS Assessment & Plan (08/07/2024 9:44 AM EDT): - Subacute 9-12th posterior rib fractures - No pain on exam this AM - Stable RA - MM pain control - Aggressive IS Assessment & Plan (08/06/2024 7:53 AM EDT): - Subacute 9-12th posterior rib fractures - No pain on exam this AM - Stable RA - MM pain control - Aggressive IS Assessment & Plan (08/05/2024 9:50 AM EDT): - Subacute 9-12th posterior rib fractures - No pain on exam this AM - Stable RA - MM pain control - Aggressive IS Assessment & Plan (08/04/2024 2:44 PM EDT): - Subacute 9-12th posterior rib fractures - No pain on exam this AM - Stable RA - MM pain control - Aggressive IS Assessment & Plan (08/03/2024 1:28 PM EDT): - Subacute 9-12th posterior rib fractures - No pain on exam this AM - Stable RA - MM pain control - Aggressive IS Assessment & Plan (08/02/2024 12:20 PM EDT): - Subacute 9-12th posterior rib fractures - No pain on exam this AM - Stable RA - MM pain control - Aggressive IS Assessment & Plan (08/01/2024 4:25 PM EDT): - Subacute 9-12th posterior rib fractures - No pain on exam this AM - MM pain control - Aggressive IS Closed fracture of body of sternum 08/01/2024 Assessment & Plan (08/14/2024 9:56 AM EDT): - Subacute in nature - Echo: LV moderately dilated with Lvef 55%, left atrial cavity severely dilated, mild MVR, and mild pHTN. Compared to prior exam from 05/2022 LV fx improved. - Tele Assessment & Plan (08/13/2024 7:24 AM EDT): - Subacute in nature - Echo: LV moderately dilated with Lvef 55%, left atrial cavity severely dilated, mild MVR, and mild pHTN. Compared to prior exam from 05/2022 LV fx improved. - Tele Assessment & Plan (08/12/2024 8:59 AM EDT): - Subacute in nature - Echo: LV moderately dilated with Lvef 55%, left atrial cavity severely dilated, mild MVR, and mild pHTN. Compared to prior exam from 05/2022 LV fx improved. - Tele Assessment & Plan (08/11/2024 11:17 AM EDT): - Subacute in nature - Echo: LV moderately dilated with Lvef 55%, left atrial cavity severely dilated, mild MVR, and mild pHTN. Compared to prior exam from 05/2022 LV fx improved. - Tele Assessment & Plan (08/10/2024 9:47 AM EDT): - Subacute in nature - Echo: LV moderately dilated with Lvef 55%, left atrial cavity severely dilated, mild MVR, and mild pHTN. Compared to prior exam from 05/2022 LV fx improved. - Tele Assessment & Plan (08/09/2024 9:50 AM EDT): - Subacute in nature - Echo: LV moderately dilated with Lvef 55%, left atrial cavity severely dilated, mild MVR, and mild pHTN. Compared to prior exam from 05/2022 LV fx improved. - Tele Assessment & Plan (08/08/2024 9:11 AM EDT): - Subacute in nature - Echo: LV moderately dilated with Lvef 55%, left atrial cavity severely dilated, mild MVR, and mild pHTN. Compared to prior exam from 05/2022 LV fx improved. - Tele Assessment & Plan (08/07/2024 9:44 AM EDT): - Subacute in nature - Echo: LV moderately dilated with Lvef 55%, left atrial cavity severely dilated, mild MVR, and mild pHTN. Compared to prior exam from 05/2022 LV fx improved. - Tele Assessment & Plan (08/06/2024 7:53 AM EDT): - Subacute in nature - Echo: LV moderately dilated with Lvef 55%, left atrial cavity severely dilated, mild MVR, and mild pHTN. Compared to prior exam from 05/2022 LV fx improved. - Tele Assessment & Plan (08/05/2024 9:50 AM EDT): - Subacute in nature - Echo: LV moderately dilated with Lvef 55%, left atrial cavity severely dilated, mild MVR, and mild pHTN. Compared to prior exam from 05/2022 LV fx improved. - Tele Assessment & Plan (08/04/2024 2:44 PM EDT): - Subacute in nature - Echo: LV moderately dilated with Lvef 55%, left atrial cavity severely dilated, mild MVR, and mild pHTN. Compared to prior exam from 05/2022 LV fx improved. - Tele Assessment & Plan (08/03/2024 1:28 PM EDT): - Subacute in nature - Echo: LV moderately dilated with Lvef 55%, left atrial cavity severely dilated, mild MVR, and mild pHTN. Compared to prior exam from 05/2022 LV fx improved. - Tele Assessment & Plan (08/02/2024 12:20 PM EDT): - Subacute in nature - Echo: LV moderately dilated with Lvef 55%, left atrial cavity severely dilated, mild MVR, and mild pHTN. Compared to prior exam from 05/2022 LV fx improved. - Tele Assessment & Plan (08/01/2024 4:25 PM EDT): - Subacute in nature - Echo pending - Tele Syncope and collapse 08/01/2024 Assessment & Plan (08/14/2024 9:56 AM EDT): - Unclear etiology of fall - Reports multiple falls and dizziness at home per - Echo: LV moderately dilated with Lvef 55%, left atrial cavity severely dilated, mild MVR, and mild pHTN. Compared to prior exam from 05/2022 LV fx improved. - Carotids: Bilateral carotid artery duplex with approximately 0-29% stenosis bilaterally. - Tele Assessment & Plan (08/13/2024 7:24 AM EDT): - Unclear etiology of fall - Reports multiple falls and dizziness at home per - Echo: LV moderately dilated with Lvef 55%, left atrial cavity severely dilated, mild MVR, and mild pHTN. Compared to prior exam from 05/2022 LV fx improved. - Carotids: Bilateral carotid artery duplex with approximately 0-29% stenosis bilaterally. - Tele Assessment & Plan (08/12/2024 8:59 AM EDT): - Unclear etiology of fall - Reports multiple falls and dizziness at home per - Echo: LV moderately dilated with Lvef 55%, left atrial cavity severely dilated, mild MVR, and mild pHTN. Compared to prior exam from 05/2022 LV fx improved. - Carotids: Bilateral carotid artery duplex with approximately 0-29% stenosis bilaterally. - Tele Assessment & Plan (08/11/2024 11:17 AM EDT): - Unclear etiology of fall - Reports multiple falls and dizziness at home per - Echo: LV moderately dilated with Lvef 55%, left atrial cavity severely dilated, mild MVR, and mild pHTN. Compared to prior exam from 05/2022 LV fx improved. - Carotids: Bilateral carotid artery duplex with approximately 0-29% stenosis bilaterally. - Tele Assessment & Plan (08/10/2024 9:47 AM EDT): - Unclear etiology of fall - Reports multiple falls and dizziness at home per - Echo: LV moderately dilated with Lvef 55%, left atrial cavity severely dilated, mild MVR, and mild pHTN. Compared to prior exam from 05/2022 LV fx improved. - Carotids: Bilateral carotid artery duplex with approximately 0-29% stenosis bilaterally. - Tele Assessment & Plan (08/09/2024 9:50 AM EDT): - Unclear etiology of fall - Reports multiple falls and dizziness at home per - Echo: LV moderately dilated with Lvef 55%, left atrial cavity severely dilated, mild MVR, and mild pHTN. Compared to prior exam from 05/2022 LV fx improved. - Carotids: Bilateral carotid artery duplex with approximately 0-29% stenosis bilaterally. - Tele Assessment & Plan (08/08/2024 9:11 AM EDT): - Unclear etiology of fall - Reports multiple falls and dizziness at home per - Echo: LV moderately dilated with Lvef 55%, left atrial cavity severely dilated, mild MVR, and mild pHTN. Compared to prior exam from 05/2022 LV fx improved. - Carotids: Bilateral carotid artery duplex with approximately 0-29% stenosis bilaterally. - Tele Assessment & Plan (08/07/2024 9:44 AM EDT): - Unclear etiology of fall - Reports multiple falls and dizziness at home per - Echo: LV moderately dilated with Lvef 55%, left atrial cavity severely dilated, mild MVR, and mild pHTN. Compared to prior exam from 05/2022 LV fx improved. - Carotids: Bilateral carotid artery duplex with approximately 0-29% stenosis bilaterally. - Tele Assessment & Plan (08/06/2024 7:53 AM EDT): - Unclear etiology of fall - Reports multiple falls and dizziness at home per - Echo: LV moderately dilated with Lvef 55%, left atrial cavity severely dilated, mild MVR, and mild pHTN. Compared to prior exam from 05/2022 LV fx improved. - Carotids: Bilateral carotid artery duplex with approximately 0-29% stenosis bilaterally. - Tele Assessment & Plan (08/05/2024 9:50 AM EDT): - Unclear etiology of fall - Reports multiple falls and dizziness at home per - Echo: LV moderately dilated with Lvef 55%, left atrial cavity severely dilated, mild MVR, and mild pHTN. Compared to prior exam from 05/2022 LV fx improved. - Carotids: Bilateral carotid artery duplex with approximately 0-29% stenosis bilaterally. - Tele Assessment & Plan (08/04/2024 2:44 PM EDT): - Unclear etiology of fall - Reports multiple falls and dizziness at home per - Echo: LV moderately dilated with Lvef 55%, left atrial cavity severely dilated, mild MVR, and mild pHTN. Compared to prior exam from 05/2022 LV fx improved. - Carotids: Bilateral carotid artery duplex with approximately 0-29% stenosis bilaterally. - Tele Assessment & Plan (08/03/2024 1:28 PM EDT): - Unclear etiology of fall - Reports multiple falls and dizziness at home per - Echo: LV moderately dilated with Lvef 55%, left atrial cavity severely dilated, mild MVR, and mild pHTN. Compared to prior exam from 05/2022 LV fx improved. - Carotids: Bilateral carotid artery duplex with approximately 0-29% stenosis bilaterally. - Tele Assessment & Plan (08/02/2024 12:23 PM EDT): - Unclear etiology of fall - Reports multiple falls and dizziness at home per - Echo: LV moderately dilated with Lvef 55%, left atrial cavity severely dilated, mild MVR, and mild pHTN. Compared to prior exam from 05/2022 LV fx improved. - Carotids: Bilateral carotid artery duplex with approximately 0-29% stenosis bilaterally. - Tele Assessment & Plan (08/01/2024 4:25 PM EDT): - Unclear etiology of fall - Reports multiple falls and dizziness at home per - Echo pending - Carotids pending - Tele Subarachnoid hemorrhage 07/31/2024 Assessment & Plan (08/14/2024 9:56 AM EDT): - Neurosurgery consulted - Non operative management - Neuro checks Q 4 - Repeat CT brain: Stable - MRI 08/01: Small focus of diffusion restriction posterior LEFT aspect of the patsy - BEM DC 08/02 as no seizure activity noted. Moderate diffuse encephalopathy - 20 min BEM 63: negative - SBP goal: < 140 - DVT ppx: SQ - CHAIR TRIMMER cog eval - Seizure prophylaxis: keppra - PT/OT: [facility] vs SNF - MM pain control - 08/08 repeat CTH stable Assessment & Plan (08/13/2024 7:24 AM EDT): - Neurosurgery consulted - Non operative management - Neuro checks Q 4 - Repeat CT brain: Stable - MRI 08/01: Small focus of diffusion restriction posterior LEFT aspect of the patsy - BEM DC 08/02 as no seizure activity noted. Moderate diffuse encephalopathy - 20 min BEM 6/3: negative - SBP goal: < 140 - DVT ppx: SQ - CHAIR TRIMMER cog eval - Seizure prophylaxis: keppra - PT/OT: AR vs SNF - MM pain control - 08/08 repeat CTH stable Assessment & Plan (08/12/2024 8:58 AM EDT): - Neurosurgery consulted - Non operative management - Neuro checks Q 4 - Repeat CT brain: Stable - MRI 08/01: Small focus of diffusion restriction posterior LEFT aspect of the patsy - BEM DC 30 as no seizure activity noted. Moderate diffuse encephalopathy - 20 min BEM 6/3: negative - SBP goal: < 140 - DVT ppx: SQ - CHAIR TRIMMER cog eval - Seizure prophylaxis: keppra - PT/OT: AR vs SNF - MM pain control - 6/5 repeat CTH stable Assessment & Plan (08/11/2024 11:17 AM EDT): - Neurosurgery consulted - Non operative management - Neuro checks Q 4 - Repeat CT brain: Stable - MRI 29: Small focus of diffusion restriction posterior LEFT aspect of the patsy - BEM DC 5/30 as no seizure activity noted. Moderate diffuse encephalopathy - 20 min BEM 6/3: negative - SBP goal: < 140 - DVT ppx: SQH - CHAIR TRIMMER cog eval - Seizure prophylaxis: keppra - PT/OT: AR vs SNF - MM pain control - 6/5 repeat CTH stable Assessment & Plan (08/10/2024 9:47 AM EDT): - Neurosurgery consulted - Non operative management - Neuro checks Q 4 - Repeat CT brain: Stable - MRI 08/01: Small focus of diffusion restriction posterior LEFT aspect of the patsy - BEM DC 5/30 as no seizure activity noted. Moderate diffuse encephalopathy - 20 min BEM 6/3: negative - SBP goal: < 140 - DVT ppx: SQ - CHAIR TRIMMER cog eval - Seizure prophylaxis: keppra - PT/OT: AR vs SNF - MM pain control - 6/5 repeat CTH stable Assessment & Plan (08/09/2024 9:50 AM EDT): - Neurosurgery consulted - Non operative management - Neuro checks Q 4 - Repeat CT brain: Stable - MRI 08/01: Small focus of diffusion restriction posterior LEFT aspect of the patsy - BEM DC 5/30 as no seizure activity noted. Moderate diffuse encephalopathy - 20 min BEM 6/3: negative - SBP goal: < 140 - DVT ppx: SQH - CHAIR TRIMMER cog eval - Seizure prophylaxis: keppra - PT/OT: AR - MM pain control - 6/5 repeat CTH stable Assessment & Plan (08/08/2024 12:39 PM EDT): - Neurosurgery consulted - Non operative management - Neuro checks Q 4 - Repeat CT brain: Stable - MRI 08/01: Small focus of diffusion restriction posterior LEFT aspect of the patsy - BEM DC 5/30 as no seizure activity noted. Moderate diffuse encephalopathy - 20 min BEM 08/06: negative - SBP goal: < 140 - DVT ppx: SQH - CHAIR TRIMMER cog eval - Seizure prophylaxis: keppra - PT/OT: AR - MM pain control - 08/08 repeat CTH stable Assessment & Plan (08/07/2024 10:08 AM EDT): - Neurosurgery consulted - Non operative management - Neuro checks Q 4 - Repeat CT brain: Stable - MRI 08/01: Small focus of diffusion restriction posterior LEFT aspect of the patsy - BEM DC 08/02 as no seizure activity noted. Moderate diffuse encephalopathy - 20 min BEM 08/06: negative - SBP goal: < 140 - DVT ppx: SQ - CHAIR TRIMMER cog eval - Seizure prophylaxis: keppra - PT/OT: AR - MM pain control - 08/06 repeat CTH stable Assessment & Plan (08/06/2024 9:37 AM EDT): - Neurosurgery consulted - Non operative management - Neuro checks Q 4 - Repeat CT brain: Stable - MRI 08/01: Small focus of diffusion restriction posterior LEFT aspect of the patsy - BEM DC 08/02 as no seizure activity noted. Moderate diffuse encephalopathy - SBP goal: < 140 - DVT ppx: SQH started today - CHAIR TRIMMER cog eval - Seizure prophylaxis: keppra - PT/OT: pending - MM pain control 08/06 concern for AMS change- stat CT ordered - follow Assessment & Plan (08/05/2024 9:50 AM EDT): - Neurosurgery consulted - Non operative management - Neuro checks Q 4 - Repeat CT brain: Stable - MRI 08/01: Small focus of diffusion restriction posterior LEFT aspect of the patsy - BEM DC 30 as no seizure activity noted. Moderate diffuse encephalopathy - SBP goal: < 140 - DVT ppx: SQH started today - CHAIR TRIMMER cog eval - Seizure prophylaxis: keppra - PT/OT: pending - MM pain control Assessment & Plan (08/04/2024 2:44 PM EDT): - Neurosurgery consulted - Non operative management - Neuro checks Q 4 - Repeat CT brain: Stable - MRI 08/01: Small focus of diffusion restriction posterior LEFT aspect of the patsy - BEM DC 08/02 as no seizure activity noted. Moderate diffuse encephalopathy - SBP goal: < 140 - DVT ppx: SQH started today - CHAIR TRIMMER cog eval - Seizure prophylaxis: keppra - PT/OT: pending - MM pain control Assessment & Plan (08/03/2024 1:28 PM EDT): - Neurosurgery consulted - Non operative management - Neuro checks Q 4 - Repeat CT brain: Stable - MRI 08/01: Small focus of diffusion restriction posterior LEFT aspect of the patsy - BEM DC 08/02 as no seizure activity noted. Moderate diffuse encephalopathy - SBP goal: < 140 - DVT ppx: SQH started today - CHAIR TRIMMER cog eval - Seizure prophylaxis: keppra - PT/OT: pending - MM pain control Assessment & Plan (08/02/2024 12:23 PM EDT): - Neurosurgery consulted - Non operative management - Neuro checks Q 4 - Repeat CT brain: Stable - MRI 08/01: Small focus of diffusion restriction posterior LEFT aspect of the patsy - BEM DC 08/02 as no seizure activity noted. Moderate diffuse encephalopathy - SBP goal: < 140 - DVT ppx: SCD's - CHAIR TRIMMER cog eval - Seizure prophylaxis: keppra - PT/OT: pending - MM pain control Assessment & Plan (08/01/2024 4:25 PM EDT): - Neurosurgery consulted - Non operative management - Neuro checks Q 4 - Repeat CT brain: Stable - Planning for MRI w/wo - SBP goal: < 140 - DVT ppx: SCD's - CHAIR TRIMMER cog eval - Seizure prophylaxis: keppra - PT/OT - MM pain control Diabetes mellitus type 2, controlled, without co mplications 07/31/2024 Assessment & Plan (08/14/2024 9:56 AM EDT): - Hold Farxiga - SSI - Accu checks AC/HS Assessment & Plan (08/13/2024 7:24 AM EDT): - Hold Farxiga - SSI - Accu checks AC/HS Assessment & Plan (08/12/2024 8:58 AM EDT): - Hold Farxiga - SSI - Accu checks AC/HS Assessment & Plan (08/11/2024 11:17 AM EDT): - Hold Farxiga - SSI - Accu checks AC/HS Assessment & Plan (08/10/2024 9:47 AM EDT): - Hold Farxiga - SSI - Accu checks AC/HS Assessment & Plan (08/09/2024 9:50 AM EDT): - Hold Farxiga - SSI - Accu checks AC/HS Assessment & Plan (08/08/2024 9:11 AM EDT): - Hold Farxiga - SSI - Accu checks AC/HS Assessment & Plan (08/07/2024 9:44 AM EDT): - Hold Farxiga - SSI - Accu checks AC/HS Assessment & Plan (08/06/2024 7:53 AM EDT): - Hold Farxiga - SSI - Accu checks AC/HS Assessment & Plan (08/05/2024 9:50 AM EDT): - Hold Farxiga - SSI - Accu checks AC/HS Assessment & Plan (08/04/2024 2:44 PM EDT): - Hold Farxiga - SSI - Accu checks AC/HS Assessment & Plan (08/03/2024 1:28 PM EDT): - Hold Farxiga - SSI - Accu checks AC/HS Assessment & Plan (08/02/2024 8:00 AM EDT): - Hold Farxiga - SSI - Accu checks AC/HS Assessment & Plan (08/01/2024 4:25 PM EDT): - Hold Farxiga - [facility] - Accu checks AC/HS Anticoagulated 07/31/2024 Assessment & Plan (08/14/2024 10:55 AM EDT): - No current AC use - Only on plavix- hold till follow up - Given TXA at OSH - Continue to monitor platelets Assessment & Plan (08/13/2024 7:24 AM EDT): - No current AC use - Only on plavix - Given TXA at OSH - Continue to monitor platelets Assessment & Plan (08/12/2024 8:58 AM EDT): - No current AC use - Only on plavix - Given TXA at OSH - Continue to monitor platelets Assessment & Plan (08/11/2024 11:17 AM EDT): - No current AC use - Only on plavix - Given TXA at OSH - Continue to monitor platelets Assessment & Plan (08/10/2024 9:47 AM EDT): - No current AC use - Only on plavix - Given TXA at OSH - Continue to monitor platelets Assessment & Plan (08/09/2024 9:50 AM EDT): - No current AC use - Only on plavix - Given TXA at OSH - Continue to monitor platelets Assessment & Plan (08/08/2024 9:11 AM EDT): - No current AC use - Only on plavix - Given TXA at OSH - Continue to monitor platelets Assessment & Plan (08/07/2024 9:44 AM EDT): - No current AC use - Only on plavix - Given TXA at OSH - Continue to monitor platelets Assessment & Plan (08/06/2024 7:53 AM EDT): - No current AC use - Only on plavix - Given TXA at OSH - Continue to monitor platelets Assessment & Plan (08/05/2024 9:50 AM EDT): - No current AC use - Only on plavix - Given TXA at OSH - Continue to monitor platelets Assessment & Plan (08/04/2024 2:44 PM EDT): - No current AC use - Only on plavix - Given TXA at OSH - Continue to monitor platelets Assessment & Plan (08/03/2024 1:28 PM EDT): - No current AC use - Only on plavix - Given TXA at OSH - Continue to monitor platelets Assessment & Plan (08/02/2024 8:00 AM EDT): - No current AC use - Only on plavix - Given TXA at OSH - Continue to monitor platelets Assessment & Plan (08/01/2024 4:25 PM EDT): - No current AC use - Only on plavix - Given TXA at OSH - Continue to monitor platelets On mechanically assisted ventilation 07/31/2024 Assessment & Plan (08/12/2024 8:58 AM EDT): - Intubated for airway protection - Extubated 08/01 - Close respiratory monitoring Assessment & Plan (08/11/2024 11:17 AM EDT): - Intubated for airway protection - Extubated 08/01 - Close respiratory monitoring Assessment & Plan (08/10/2024 9:47 AM EDT): - Intubated for airway protection - Extubated 08/01 - Close respiratory monitoring Assessment & Plan (08/09/2024 9:50 AM EDT): - Intubated for airway protection - Extubated 08/01 - Close respiratory monitoring Assessment & Plan (08/08/2024 9:11 AM EDT): - Intubated for airway protection - Extubated 08/01 - Close respiratory monitoring Assessment & Plan (08/07/2024 9:44 AM EDT): - Intubated for airway protection - Extubated 08/01 - Close respiratory monitoring Assessment & Plan (08/06/2024 7:53 AM EDT): - Intubated for airway protection - Extubated 08/01 - Close respiratory monitoring Assessment & Plan (08/05/2024 9:50 AM EDT): - Intubated for airway protection - Extubated 08/01 - Close respiratory monitoring Assessment & Plan (08/04/2024 2:44 PM EDT): - Intubated for airway protection - Extubated 08/01 - Close respiratory monitoring Assessment & Plan (08/03/2024 1:28 PM EDT): - Intubated for airway protection - Extubated 08/01 - Close respiratory monitoring Assessment & Plan (08/02/2024 12:20 PM EDT): - Intubated for airway protection - Extubated 08/01 - Close respiratory monitoring Assessment & Plan (08/01/2024 4:25 PM EDT): - Intubated for airway protection - Extubated this AM - Close respiratory monitoring Dysphagia 06/06/2024 Assessment & Plan (06/06/2024 2:20 PM EDT): Scheduled for surgery on 06/20/2024 History of seizures 06/06/2024 Assessment & Plan (08/14/2024 9:56 AM EDT): - No home AEDs - Will continue keppra 1g BID - BEM DC 08/02 as no seizure activity noted. Moderate diffuse encephalopathy Assessment & Plan (08/13/2024 7:24 AM EDT): - No home AEDs - Will continue keppra 1g BID - BEM DC 08/02 as no seizure activity noted. Moderate diffuse encephalopathy Assessment & Plan (08/12/2024 8:58 AM EDT): - No home AEDs - Will continue keppra 1g BID - BEM DC 5/30 as no seizure activity noted. Moderate diffuse encephalopathy Assessment & Plan (08/11/2024 11:17 AM EDT): - No home AEDs - Will continue keppra 1g BID - BEM DC 5/30 as no seizure activity noted. Moderate diffuse encephalopathy Assessment & Plan (08/10/2024 9:47 AM EDT): - No home AEDs - Will continue keppra 1g BID - BEM DC 5/30 as no seizure activity noted. Moderate diffuse encephalopathy Assessment & Plan (08/09/2024 9:50 AM EDT): - No home AEDs - Will continue keppra 1g BID - BEM DC 5/30 as no seizure activity noted. Moderate diffuse encephalopathy Assessment & Plan (08/08/2024 9:11 AM EDT): - No home AEDs - Will continue keppra 1g BID - BEM DC 5/30 as no seizure activity noted. Moderate diffuse encephalopathy Assessment & Plan (08/07/2024 9:44 AM EDT): - No home AEDs - Will continue keppra 1g BID - BEM DC 5/30 as no seizure activity noted. Moderate diffuse encephalopathy Assessment & Plan (08/06/2024 7:53 AM EDT): - No home AEDs - Will continue keppra 1g BID - BEM DC 5/30 as no seizure activity noted. Moderate diffuse encephalopathy Assessment & Plan (08/05/2024 9:50 AM EDT): - No home AEDs - Will continue keppra 1g BID - BEM DC 5/30 as no seizure activity noted. Moderate diffuse encephalopathy Assessment & Plan (08/04/2024 2:44 PM EDT): - No home AEDs - Will continue keppra 1g BID - BEM DC 08/02 as no seizure activity noted. Moderate diffuse encephalopathy Assessment & Plan (08/03/2024 1:28 PM EDT): - No home AEDs - Will continue keppra 1g BID - BEM DC 08/02 as no seizure activity noted. Moderate diffuse encephalopathy Assessment & Plan (08/02/2024 12:23 PM EDT): - No home AEDs - Will continue keppra 1g BID - BEM DC today as no seizure activity noted. 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 - Hold home Plavix Assessment & Plan (08/11/2024 11:17 AM EDT): - 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 - Hold home Plavix Assessment & Plan (08/10/2024 9:47 AM EDT): - 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 - Hold home Plavix Assessment & Plan (08/09/2024 9:50 AM EDT): - 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 - Hold home Plavix Assessment & Plan (08/08/2024 9:11 AM EDT): - 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 - Hold home Plavix Assessment & Plan (08/07/2024 9:44 AM EDT): - 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 - Hold home Plavix Assessment & Plan (08/06/2024 7:53 AM EDT): - 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 - Hold home Plavix Assessment & Plan (08/05/2024 9:50 AM EDT): - 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 - Hold home Plavix Assessment & Plan (08/04/2024 2:44 PM EDT): - 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 - Hold home Plavix Assessment & Plan (08/03/2024 1:28 PM EDT): - 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 - Hold home Plavix Assessment & Plan (08/02/2024 12:23 PM EDT): - 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 - Hold home Plavix Assessment & Plan (08/01/2024 4:25 PM EDT): - 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 Assessment & Plan (06/06/2024 2:35 PM EDT): Occurred 6 months ago On plavix LUE and LLE weakness Follows with pcp, hasn't followed with a neurologist in a long time Anxiety and depression 06/06/2024 Assessment & Plan (08/14/2024 9:56 AM EDT): - Holding home lexapro and seroquel - Initially held d/t lack of enteral access, now held d/t prolonged qtc - Repeat EKG prn - Resume seroquel - Holding lexapro d/t QTC Assessment & Plan (08/13/2024 10:05 AM EDT): - Holding home lexapro and seroquel - Initially held d/t lack of enteral access, now held d/t prolonged qtc - Repeat EKG prn - Resume seroquel - Holding lexapro d/t QTC Assessment & Plan (08/12/2024 8:58 AM EDT): - Holding home lexapro and seroquel - Initially held d/t lack of enteral access, now held d/t prolonged qtc - Repeat EKG ordered for AM 6/2- EKG- complete , no prolonged QT- 379 -May resume Lexapro and seroquel today 08/08: Escitalopram discontinued. Receiving Seroquel, QTc 487. Assessment & Plan (08/11/2024 11:17 AM EDT): - Holding home lexapro and seroquel - Initially held d/t lack of enteral access, now held d/t prolonged qtc - Repeat EKG ordered for AM 6/2- EKG- complete , no prolonged QT- 379 -May resume Lexapro and seroquel today 08/08: Escitalopram discontinued. Receiving Seroquel, QTc 487. Assessment & Plan (08/10/2024 9:47 AM EDT): - Holding home lexapro and seroquel - Initially held d/t lack of enteral access, now held d/t prolonged qtc - Repeat EKG ordered for AM 6/2- EKG- complete , no prolonged QT- 379 -May resume Lexapro and seroquel today 08/08: Escitalopram discontinued. Receiving Seroquel, QTc 487. Assessment & Plan (08/09/2024 9:50 AM EDT): - Holding home lexapro and seroquel - Initially held d/t lack of enteral access, now held d/t prolonged qtc - Repeat EKG ordered for AM 6/2- EKG- complete , no prolonged QT- 379 -May resume Lexapro and seroquel today 08/08: Escitalopram discontinued. Receiving Seroquel, QTc 487. Assessment & Plan (08/08/2024 12:39 PM EDT): - Holding home lexapro and seroquel - Initially held d/t lack of enteral access, now held d/t prolonged qtc - Repeat EKG ordered for AM 6/2- EKG- complete , no prolonged QT- 379 -May resume Lexapro and seroquel today 08/08: Escitalopram discontinued. Receiving Seroquel, QTc 487. Assessment & Plan (08/07/2024 9:44 AM EDT): - Holding home lexapro and seroquel - Initially held d/t lack of enteral access, now held d/t prolonged qtc - Repeat EKG ordered for AM 6/2- EKG- complete , no prolonged QT- 379 -May resume Lexapro and seroquel today Assessment & Plan (08/06/2024 7:53 AM EDT): - Holding home lexapro and seroquel - Initially held d/t lack of enteral access, now held d/t prolonged qtc - Repeat EKG ordered for AM 6/2- EKG- complete , no prolonged QT- 379 -May resume Lexapro and seroquel today Assessment & Plan (08/05/2024 9:50 AM EDT): - Holding home lexapro and seroquel - Initially held d/t lack of enteral access, now held d/t prolonged qtc - Repeat EKG ordered for AM 6/2- EKG- complete , no prolonged QT- 379 -May resume Lexapro and seroquel today Assessment & Plan (08/04/2024 2:44 PM EDT): - Holding home lexapro and seroquel - Initially held d/t lack of enteral access, now held d/t prolonged qtc - Repeat EKG ordered for AM Assessment & Plan (08/03/2024 1:28 PM EDT): - Holding home lexapro and seroquel Assessment & Plan (08/02/2024 8:00 AM EDT): - Holding home lexapro and seroquel Assessment & Plan (08/01/2024 4:25 PM EDT): - Holding home lexapro and seroquel Assessment & Plan (06/06/2024 2:36 PM EDT): On seroquel and lexapro Follows with pcp COPD (chronic obstructive pulmonary disease) 05/2024 Assessment & Plan (06/06/2024 2:37 PM EDT): Not on inhalers Current everyday cigarette smoker PT denies any CP, SOB or wheezing Follows with pcp LUZ (obstructive sleep apnea) 06/06/2024 Assessment & Plan (08/14/2024 9:56 AM EDT): - Does not wear home cpap - May need to initiate once extubated - Tele Assessment & Plan (08/13/2024 7:24 AM EDT): - Does not wear home cpap - May need to initiate once extubated - Tele Assessment & Plan (08/12/2024 8:59 AM EDT): - Does not wear home cpap - May need to initiate once extubated - Tele Assessment & Plan (08/11/2024 11:17 AM EDT): - Does not wear home cpap - May need to initiate once extubated - Tele Assessment & Plan (08/10/2024 9:47 AM EDT): - Does not wear home cpap - May need to initiate once extubated - Tele Assessment & Plan (08/09/2024 9:50 AM EDT): - Does not wear home cpap - May need to initiate once extubated - Tele Assessment & Plan (08/08/2024 9:11 AM EDT): - Does not wear home cpap - May need to initiate once extubated - Tele Assessment & Plan (08/07/2024 9:44 AM EDT): - Does not wear home cpap - May need to initiate once extubated - Tele Assessment & Plan (08/06/2024 7:53 AM EDT): - Does not wear home cpap - May need to initiate once extubated - Tele Assessment & Plan (08/05/2024 9:50 AM EDT): - Does not wear home cpap - May need to initiate once extubated - Tele Assessment & Plan (08/04/2024 2:44 PM EDT): - Does not wear home cpap - May need to initiate once extubated - Tele Assessment & Plan (08/03/2024 1:28 PM EDT): - Does not wear home cpap - May need to initiate once extubated - Tele Assessment & Plan (08/02/2024 8:00 AM EDT): - Does not wear home cpap - May need to initiate once extubated - Tele Assessment & Plan (08/01/2024 4:25 PM EDT): - Does not wear home cpap - May need to initiate once extubated - Tele Assessment & Plan (06/06/2024 2:37 PM EDT): Noncompliant with cpap HTN (hypertension) 06/06/2024 Assessment & Plan (06/06/2024 3:38 PM EDT): On metoprolol Per pt BP typically ranges in the 100s/60s Pt denies any CP, SOB or palpitations Follows with Dr. Rajiv CORTES 03/28/2024 CHF (congestive heart failure) 06/06/2024 Assessment & Plan (06/06/2024 2:40 PM EDT): On entresto, spirolactone and farxiga PT denies any CP, SOB, orthopnea or BLE edema Follows with cardiology ECHO 12/2023 PHYSICIAN INTERPRETATION: Left Ventricle: Left ventricular ejection fraction is moderately decreased, by visual estimate at 35-40%. The left ventricular cavity size is normal. Left ventricular diastolic filling was not assessed. There is global LV hypokinesis. However the apex appears almost akinetic. Left Atrium: The left atrium is mildly dilated. Right Ventricle: The right ventricle is normal in size. There is normal right ventricular global systolic function. Right Atrium: The right atrium is normal in size. Aortic Valve: The aortic valve appears structurally normal. Aortic valve regurgitation was not assessed. Mitral Valve: The mitral valve is normal in structure. Mitral valve regurgitation was not assessed. Tricuspid Valve: The tricuspid valve is structurally normal. Tricuspid regurgitation was not assessed. Pulmonic Valve: The pulmonic valve is structurally normal. The pulmonic valve regurgitation was not assessed. Pericardium: No pericardial effusion noted. Aorta: The aortic root is normal. CAD (coronary artery disease) 06/06/2024 Assessment & Plan (06/06/2024 2:52 PM EDT): +NSTEMI, S/p PCI x 2 in 09/2023 On plavix and ASA (stopped d/t bleeding/anemia) Follows with cardiology- Dr. Rajiv CORTES 03/28/2024 HLD (hyperlipidemia) 06/06/2024 Assessment & Plan (08/14/2024 9:56 AM EDT): - Continue home statin Assessment & Plan (08/13/2024 7:24 AM EDT): - Continue home statin Assessment & Plan (08/12/2024 8:59 AM EDT): - Continue home statin Assessment & Plan (08/11/2024 11:17 AM EDT): - Continue home statin Assessment & Plan (08/10/2024 9:47 AM EDT): - Continue home statin Assessment & Plan (08/09/2024 9:50 AM EDT): - Continue home statin Assessment & Plan (08/08/2024 9:11 AM EDT): - Continue home statin Assessment & Plan (08/07/2024 9:44 AM EDT): - Continue home statin Assessment & Plan (08/06/2024 7:53 AM EDT): - Continue home statin Assessment & Plan (08/05/2024 9:50 AM EDT): - Continue home statin Assessment & Plan (08/04/2024 2:44 PM EDT): - Continue home statin Assessment & Plan (08/03/2024 1:28 PM EDT): - Continue home statin Assessment & Plan (08/02/2024 8:00 AM EDT): - Continue home statin Assessment & Plan (08/01/2024 4:25 PM EDT): - Continue home statin Assessment & Plan (06/06/2024 2:41 PM EDT): On rosuvastatin Follows with cardiology ARDS (adult respiratory distress syndrome) 05/19 Status post tracheostomy 05/19/2022 Assessment & Plan (06/06/2024 2:30 PM EDT): In 2022 d/t respiratory distress syndrome Closed two weeks after trach was placed Pleural effusion transudative 05/19/2022 Pancreatic insufficiency 05/19/2022 Pharyngeal dysphagia 05/19/2022 Assessment & Plan (08/14/2024 10:55 AM EDT): - CHAIR TRIMMER eval: MBS Monday - Corpak placed 08/03 - Nutrition consult - NPO - Continue home PPI - MBSS 6/2- complete- vocal cord dysfunction - ENT consult Dr Euceda discussed via text- will set up out pt follow up - PEG planned possibly for 08/13 no peg . keep corpak Assessment & Plan (08/13/2024 10:05 AM EDT): - CHAIR TRIMMER eval: MBS Monday - Corpak placed 08/03 - Nutrition consult - NPO - Continue home PPI - MBSS 6/2- complete- vocal cord dysfunction - ENT consult Dr Euceda discussed via text- will set up out pt follow up - PEG planned possibly for 08/13 Assessment & Plan (08/12/2024 12:41 PM EDT): - CHAIR TRIMMER eval: MBS Monday - Corpak placed 08/03 - Nutrition consult - NPO - Continue home PPI MBSS planned for 6/2- complete- vocal cord dysfunction - ENT consult Dr Euceda discussed via text- will set up out pt follow up - PEG planned for 08/13 Assessment & Plan (08/11/2024 11:17 AM EDT): - CHAIR TRIMMER eval: MBS Monday - Corpak placed 08/03 - Nutrition consult - NPO - Continue home PPI MBSS planned for 6/2- complete- vocal cord dysfunction - ENT consult Dr Euceda discussed via text- will set up out pt follow up Assessment & Plan (08/10/2024 9:47 AM EDT): - CHAIR TRIMMER eval: MBS Monday - Corpak placed 08/03 - Nutrition consult - NPO - Continue home PPI MBSS planned for 6/2- complete- vocal cord dysfunction - ENT consult Dr Euceda discussed via text- will set up out pt follow up Assessment & Plan (08/09/2024 9:50 AM EDT): - CHAIR TRIMMER eval: MBS Monday - Corpak placed 08/03 - Nutrition consult - NPO - Continue home PPI MBSS planned for 6/2- complete- vocal cord dysfunction - ENT consult Dr Euceda discussed via text- will set up out pt follow up Assessment & Plan (08/08/2024 12:39 PM EDT): - CHAIR TRIMMER eval: MBS Monday - Corpak placed 08/03 - Nutrition consult - NPO - Continue home PPI MBSS planned for 6/- complete- vocal cord dysfunction - ENT consult Dr Euceda discussed via text- will set up out pt follow up Assessment & Plan (08/07/2024 9:44 AM EDT): - CHAIR TRIMMER eval: MBS Monday - Corpak placed 08/03 - Nutrition consult - NPO - Continue home PPI MBSS planned for 08/05- complete- vocal cord dysfunction -ENT consult Dr Euceda discussed via text- will set up out pt follow up Assessment & Plan (08/06/2024 9:37 AM EDT): - CHAIR TRIMMER eval: MBS Monday - Corpak placed 08/03 - Nutrition consult - NPO - Continue home PPI MBSS planned for 08/05- complete- vocal cord dysfunction -ENT consult Dr Euceda discussed via text- will set up out pt follow up Assessment & Plan (08/05/2024 9:50 AM EDT): - CHAIR TRIMMER eval: MBS Monday - Corpak placed 08/03 - Nutrition consult - NPO - Continue home PPI MBSS planned for 6 Assessment & Plan (08/04/2024 2:44 PM EDT): - CHAIR TRIMMER eval: MBS Monday - Corpak placed 08/03 - Nutrition consult - NPO - Continue home PPI Assessment & Plan (08/03/2024 1:28 PM EDT): - CHAIR TRIMMER eval: MBS Monday - Will place corpak today - Nutrition consult - NPO currently - Continue home PPI Assessment & Plan (08/02/2024 12:23 PM EDT): - CHAIR TRIMMER any pending, failed nursing bedside swallow - NPO currently - Continue home PPI Assessment & Plan (08/01/2024 4:25 PM EDT): - Will need swallow eval once extubated - Continue home PPI C. difficile diarrhea 05/19/2022 Iron deficiency anemia kasey riddle to inadequate dietary iron intake 05/19/2022 Anemia of chronic disease 05/19/2022 Assessment & Plan (06/06/2024 3:25 PM EDT): H/H 7.9/23.7 on 05/18/2024 Pt denies any dizziness, lightheadedness or fatigue Follows with pcp Pt states that he received one unit of PRBCs on 05/16/2024. Stress-induced cardiomyopathy 05/19/2022 Assessment & Plan (08/14/2024 9:56 AM EDT): - Most recent EF ~ 43% - Continue home entresto, aldactone and metop - Repeat echo: LV moderately dilated with Lvef 55%, left atrial cavity severely dilated, mild MVR, and mild pHTN. Compared to prior exam from 05/2022 LV fx improved. Assessment & Plan (08/13/2024 10:05 AM EDT): - Most recent EF ~ 43% - Continue home entresto, aldactone and metop - Repeat echo: LV moderately dilated with Lvef 55%, left atrial cavity severely dilated, mild MVR, and mild pHTN. Compared to prior exam from 05/2022 LV fx improved. Assessment & Plan (08/12/2024 8:58 AM EDT): - Most recent EF ~ 43% - Holding home entresto, aldactone and metop- resumed 08/05 - Repeat echo: LV moderately dilated with Lvef 55%, left atrial cavity severely dilated, mild MVR, and mild pHTN. Compared to prior exam from 05/2022 LV fx improved. 08/06- hold Aldactone due to hyponatremia today until seen by nephrology 08/10- resume Aldactone Friday 08/11 Assessment & Plan (08/11/2024 11:17 AM EDT): - Most recent EF ~ 43% - Holding home entresto, aldactone and metop- resumed 08/05 - Repeat echo: LV moderately dilated with Lvef 55%, left atrial cavity severely dilated, mild MVR, and mild pHTN. Compared to prior exam from 05/2022 LV fx improved. 6/3- hold Aldactone due to hyponatremia today until seen by nephrology 08/10- resume Aldactone Friday 08/11 Assessment & Plan (08/10/2024 9:47 AM EDT): - Most recent EF ~ 43% - Holding home entresto, aldactone and metop- resumed 08/05 - Repeat echo: LV moderately dilated with Lvef 55%, left atrial cavity severely dilated, mild MVR, and mild pHTN. Compared to prior exam from 05/2022 LV fx improved. 6/3- hold Aldactone due to hyponatremia today until seen by nephrology 08/10- resume Aldactone Friday 08/11 Assessment & Plan (08/09/2024 9:50 AM EDT): - Most recent EF ~ 43% - Holding home entresto, aldactone and metop- resumed 08/05 - Repeat echo: LV moderately dilated with Lvef 55%, left atrial cavity severely dilated, mild MVR, and mild pHTN. Compared to prior exam from 05/2022 LV fx improved. 6/3- hold Aldactone due to hyponatremia today until seen by nephrology Assessment & Plan (08/08/2024 9:11 AM EDT): - Most recent EF ~ 43% - Holding home entresto, aldactone and metop- resumed 08/05 - Repeat echo: LV moderately dilated with Lvef 55%, left atrial cavity severely dilated, mild MVR, and mild pHTN. Compared to prior exam from 05/2022 LV fx improved. 6/3- hold Aldactone due to hyponatremia today until seen by nephrology Assessment & Plan (08/07/2024 9:44 AM EDT): - Most recent EF ~ 43% - Holding home entresto, aldactone and metop- resumed 08/05 - Repeat echo: LV moderately dilated with Lvef 55%, left atrial cavity severely dilated, mild MVR, and mild pHTN. Compared to prior exam from 05/2022 LV fx improved. 6/3- hold Aldactone due to hyponatremia today until seen by nephrology Assessment & Plan (08/06/2024 2:43 PM EDT): - Most recent EF ~ 43% - Holding home entresto, aldactone and metop- resumed 08/05 - Repeat echo: LV moderately dilated with Lvef 55%, left atrial cavity severely dilated, mild MVR, and mild pHTN. Compared to prior exam from 05/2022 LV fx improved. 6/3- hold Aldactone due to hyponatremia today until seen by nephrology Assessment & Plan (08/05/2024 9:50 AM EDT): - Most recent EF ~ 43% - Holding home entresto, aldactone and metop- resumed 08/05 - Repeat echo: LV moderately dilated with Lvef 55%, left atrial cavity severely dilated, mild MVR, and mild pHTN. Compared to prior exam from 05/2022 LV fx improved. Assessment & Plan (08/04/2024 2:44 PM EDT): - Most recent EF ~ 43% - Holding home entresto, aldactone and metop - Repeat echo: LV moderately dilated with Lvef 55%, left atrial cavity severely dilated, mild MVR, and mild pHTN. Compared to prior exam from 05/2022 LV fx improved. Assessment & Plan (08/03/2024 1:28 PM EDT): - Most recent EF ~ 43% - Holding home entresto, aldactone and metop - Repeat echo: LV moderately dilated with Lvef 55%, left atrial cavity severely dilated, mild MVR, and mild pHTN. Compared to prior exam from 05/2022 LV fx improved. Assessment & Plan (08/02/2024 12:20 PM EDT): - Most recent EF ~ 43% - Holding home entresto, aldactone and metop - Repeat echo: LV moderately dilated with Lvef 55%, left atrial cavity severely dilated, mild MVR, and mild pHTN. Compared to prior exam from 05/2022 LV fx improved. Assessment & Plan (08/01/2024 4:25 PM EDT): - Most recent EF ~ 43% - Holding home entresto, aldactone and metop - Repeat echo ordered Refeeding syndrome 05/19/2022 Assessment & Plan (08/14/2024 10:55 AM EDT): - Daily labs - Replete electrolytes as needed - Slow TF advancement, will keep at 20ml/hr today and advance in AM. Goal is 50ml/hr - Assessment & Plan (08/13/2024 7:24 AM EDT): - Daily labs - Replete electrolytes as needed - Slow TF advancement, will keep at 20ml/hr today and advance in AM. Goal is 50ml/hr - PEG planned for 08/13 Assessment & Plan (08/12/2024 12:41 PM EDT): - Daily labs - Replete electrolytes as needed - Slow TF advancement, will keep at 20ml/hr today and advance in AM. Goal is 50ml/hr - PEG planned for 08/13 Assessment & Plan (08/11/2024 11:17 AM EDT): - Daily labs - Replete electrolytes as needed - Slow TF advancement, will keep at 20ml/hr today and advance in AM. Goal is 50ml/hr Assessment & Plan (08/10/2024 9:47 AM EDT): - Daily labs - Replete electrolytes as needed - Slow TF advancement, will keep at 20ml/hr today and advance in AM. Goal is 50ml/hr Assessment & Plan (08/09/2024 9:50 AM EDT): - Daily labs - Replete electrolytes as needed - Slow TF advancement, will keep at 20ml/hr today and advance in AM. Goal is 50ml/hr Assessment & Plan (08/08/2024 12:39 PM EDT): - Daily labs - Replete electrolytes as needed - Slow TF advancement, will keep at 20ml/hr today and advance in AM. Goal is 50ml/hr Assessment & Plan (08/07/2024 10:08 AM EDT): -daily labs -Replete electrolytes as needed -Slow TF advancement, will keep at 20ml/hr today and advance in AM. Goal is 50ml/hr Assessment & Plan (08/06/2024 7:53 AM EDT): -BID labs -Replete electrolytes as needed -Slow TF advancement, will keep at 20ml/hr today and advance in AM. Goal is 50ml/hr Assessment & Plan (08/05/2024 9:50 AM EDT): -BID labs -Replete electrolytes as needed -Slow TF advancement, will keep at 20ml/hr today and advance in AM. Goal is 50ml/hr Assessment & Plan (08/04/2024 2:44 PM EDT): -BID labs -Replete electrolytes as needed -Slow TF advancement, will keep at 20ml/hr today and advance in AM. Goal is 50ml/hr Severe protein-calorie malnutrition 04/27/2022 Assessment & Plan (08/14/2024 9:56 AM EDT): - Nutrition consult Assessment & Plan (08/13/2024 7:24 AM EDT): - Nutrition consult Assessment & Plan (08/12/2024 8:59 AM EDT): - Nutrition consult Assessment & Plan (08/11/2024 11:17 AM EDT): - Nutrition consult Assessment & Plan (08/10/2024 9:47 AM EDT): - Nutrition consult Assessment & Plan (08/09/2024 9:50 AM EDT): - Nutrition consult Assessment & Plan (08/08/2024 12:39 PM EDT): - Nutrition consult Assessment & Plan (08/07/2024 9:44 AM EDT): -Nutrition consult Assessment & Plan (08/06/2024 7:53 AM EDT): -Nutrition consult Assessment & Plan (08/05/2024 9:50 AM EDT): -Nutrition consult Assessment & Plan (08/04/2024 2:44 PM EDT): -Nutrition consult Nicotine use disorder, F17.2 04/27/2022 Assessment & Plan (06/06/2024 2:31 PM EDT): 1.0ppd, since 1986 Resolved Problems Problem Noted Date Diagnosed Date Resolved Date Acute systolic heart failure 05/19/2022 05/19/2022 Urinary retention 05/19/2022 05/19/2022 VAP (ventilator-associated pneumonia) 05/19/2022 05/19/2022 SVT (supraventricular tachycardia) 05/19/2022 05/19/2022 Cardiac arrest 05/19/2022 05/19/2022 Pancolitis 05/19/2022 05/19/2022 Acute on chronic pancreatitis 04/27/2022 05/19/2022 Encounters Date Type Department Care Team Description 08/26/2024 Telephone Head and Neck [place] [address] [place] [address] Keith Euceda MD 08/02/2024 Patient Msg Pulmonary Medicine [address] [id number] Mavis Harp [address] Result Notification 08/01/2024 Travel 07/31/2024 6:33 AM EDT - 08/15/2024 3:53 PM EDT Hospital Encounter [facility] [address] [id number] Ryder Lorenzana MD Gutnick, Jesse R, MD Traumatic SAH Discharge Disposition: Alf Facility 07/31/2024 Travel 07/31/2024 Critical Care Transport Critical Care [address] [place], [place] [id number] Chandana Tobin APRN.PRESSER MACHINE 06/24/2024 Results Follow-Up Gastroenterology [address] [id number] Nghia Live MD 06/20/2024 12:15 PM EDT Anesthesia Event [facility] [place] [address] Paulina France MD Soucek, Jonathan, APRN.STORM CHASER 06/20/2024 11:16 AM EDT - 06/20/2024 11:59 PM EDT Hospital Encounter [facility] [place] [address] Nghia Live MD Dysphagia, unspecified type [R13.10] Discharge Disposition: Home 06/20/2024 Orders Only Gastroenterology [address] [id number] Nghia Live MD 06/20/2024 Orders Only Gastroenterology [address] [id number] Nghia Live MD Cayetano esophagitis (HCC) (Primary Dx) 06/20/2024 Orders Only Gastroenterology [address] [place] [id number] Nghia Live MD Cayetano esophagitis (HCC) (Primary Dx) 06/20/2024 Travel 06/17/2024 Patient Msg [facility] [place] [address] Provider, Ccf Egd/Colonoscopy 06/17/2024 GI Preprocedure Call [facility] [place] [address] Nghia Live MD 06/11/2024 Telephone Pre Anesthesia [address] [facility] [address] [place] [address] Selena Novoa, MARIZA.PRESSER MACHINE 06/11/2024 Patient Msg General Surgery [address] [place], [place] [phone] Provider, Gonzalo Zarco bowel prep instructions 06/11/2024 Telephone [facility] [address] [place] [address] Nghia Live MD Preparations For Procedures 06/06/2024 2:30 PM EDT PAT Pre Anesthesia [address] [facility] [address] [place] [phone] Pre-op evaluation (Primary Dx); Dysphagia, unspecified type; Abnormal CT of the abdomen; Status post tracheostomy (HCC); Nicotine use disorder, F17.2; History of seizures; Cerebrovascular accident (CVA), unspecified mechanism ([facility]); Anxiety and depression; Chronic obstructive pulmonary disease, unspecified COPD type ([facility]); LUZ (obstructive sleep apnea); Hypertension, unspecified type; Congestive heart failure, unspecified HF chronicity, unspecified heart failure type ([facility]); Hyperlipidemia, unspecified hyperlipidemia type; Anemia of chronic disease 06/06/2024 Patient Msg Pre Anesthesia [address] [facility] [address] [place] [address] Selena Novoa APRN.PRESSER MACHINE bowel prep instructions provided by your surgeon 06/06/2024 Patient Msg Pre Anesthesia [address] [facility] [address] [place] [phone] Selena Novoa APRN.PRESSER MACHINE pre anesthesia instructions 06/06/2024 Travel from Last 3 Months Family History Medical History Relation Comments Anesthesia Problems No Family History Blood Clots No Family History Social History Tobacco Use Types Packs/Day Years Used Date Smoking Tobacco: Every Day Cigarettes Smokeless Tobacco: Never Tobacco Cessation:Ready to Q uit: Not Asked; Counseling Given: Not Answered Comments:1.0ppdx since 1986 Alcohol Use Standard Drinks/Week Comments Yes 8 (1 standard drink = 0.6 oz pure alcohol) occ during football games/cook outs [facility] Utilities Answer Date Recorded In the past 12 months has [employer], gas, oil, or water [employer] threatened to shut off services in your [...] any time in the past 12 m [facility], were you homeless or living in a nursing home (including now)? No 08/02/2024 Area Deprivation Index Answer Date Moisés rded National Score (1-100), lower number is lower ri sk 55 07/28/2022 State Score (1-10), lower number is lower risk 3 07/28/2022 Data from: https://www.neighborhoodatlas.medicine.[facility].edu/. Last address used for calculation [address] 07/28/2022 Sex and Gender Information Value Date Recorded Sex Assigned at Male 03/30/2021 7:16 AM EST Legal Sex Male 1:02 PM EDT Gender Identity Male 03/30/2021 7:16 AM EST Sexual Orientation Straight 03/30/2021 7: 16 AM EST Last Filed Vital Signs Vital Sign Reading [...] Mass Index 19.69 07/31/2024 12:00 PM EDT Plan of Treatment Health Maintenance Due Date Last Done Comments Diabetic Foot Exam 1970 Dilated Retinal Exam 1970 Urine Albumin:Creatinine Ratio 1970 Annual PCP Team Chronic Dise ase Visit 1978 HIV Screening 1978 Hepatitis C Screening 1978 DTaP,Tdap,Td Vaccine (1 - Tdap) 09/29/1979 Pneumococcal Vaccine: 50+ (1 of 2 - PCV) 09/29/1979 CT Colonography 2005 Cologuard (FIT-DNA) 2005 Fecal Occult Blood 2005 Prostate Cancer Screening Discussion 2005 Sigmoidoscopy 2005 Shingrix Vaccine (1 of 2) 2010 RSV Vaccine (1 - Risk 60-74 years 1-dose series) 2020 HbA1C 12/03/2022 06/03/2022, 05/06, 06/03/2022, Additional history exists LDL Cholesterol 05/01/2023 05/01/2022, 04/07, 04/29/2022, Additional history exists Covid-19 Vaccine (2 - 2023-2 5 season) 2023 01/29/2021 Medicare Advantage Annual We llness Visit 03/06/2024 Influenza Vaccine (Season Ended) 2024 12/20/2020, 01/21/2020, 01/29/2018 Colonoscopy 06/20/2025 06/20/2024 Colorectal Cancer Screening 06/20/2025 Medical Devices Implanted Type Area Medical Delivery Driver Device Identifier Shelf Expiration Date Model / Serial / Lot Tube Trach Shiley 7.5mm Id 10.8mm Od Tapered Cuff Disp Neha - [id number] Implanted:Qty: 1 on 05/11/2022 at [facility] Tube N/A: Trachea [employer] 02/01/2027 [id number] / [id number] Procedures Procedure Name Priority Date/Time Associated Diagnosis Comments GLUCOSE, BLOOD (POC) Routine 08/15/2024 12:03 PM EDT COMPLETE BLOOD COUNT Routine 08/15/2024 6:39 AM EDT PHOSPHORUS INORGANIC Routine 08/15/2024 6:38 AM EDT MAGNESIUM BLD Routine 08/15/2024 6:38 AM EDT BASIC METABOLIC PANEL Routine 08/15/2024 6:38 AM EDT GLUCOSE, BLOOD (POC) Routine 08/15/2024 6:09 AM EDT GLUCOSE, BLOOD (POC) Routine 08/14/2024 11:55 PM EDT GLUCOSE, BLOOD (POC) Routine 08/14/2024 5:13 PM EDT GLUCOSE, BLOOD (POC) Routine 08/14/2024 12:06 PM EDT GLUCOSE, BLOOD (POC) Routine 08/14/2024 5:21 AM EDT PHOSPHORUS INORGANIC Routine 08/14/2024 5:05 AM EDT MAGNESIUM BLD Routine 08/14/2024 5:05 AM EDT BASIC METABOLIC PANEL Routine 08/14/2024 5:05 AM EDT COMPLETE BLOOD COUNT Routine 08/14/2024 5:05 AM EDT GLUCOSE, BLOOD (POC) Routine 08/13/2024 11:54 PM EDT GLUCOSE, BLOOD (POC) Routine 08/13/2024 6:22 PM EDT GLUCOSE, BLOOD (POC) Routine 08/13/2024 12:09 PM EDT PHOSPHORUS INORGANIC Routine 08/13/2024 6:10 AM EDT MAGNESIUM BLD Routine 08/13/2024 6:10 AM EDT BASIC METABOLIC PANEL Routine 08/13/2024 6:10 AM EDT COMPLETE BLOOD COUNT Routine 08/13/2024 6:10 AM EDT GLUCOSE, BLOOD (POC) Routine 08/13/2024 5:47 AM EDT GLUCOSE, BLOOD (POC) Routine 08/13/2024 12:25 AM EDT GLUCOSE, BLOOD (POC) Routine 08/12/2024 5:53 PM EDT GLUCOSE, BLOOD (POC) Routine 08/12/2024 12:06 PM EDT PHOSPHORUS INORGANIC STAT 08/12/2024 7:30 AM EDT MAGNESIUM BLD STAT 08/12/2024 7:30 AM EDT COMPREHENSIVE METABOLIC [...] BLOOD (POC) Routine 08/10/2024 12:16 PM EDT COMPLETE BLOOD COUNT Routine 08/10/2024 6:09 AM EDT MAGNESIUM BLD Routine 08/10/2024 6:09 AM EDT RENAL FUNCTION PANEL Routine 08/10/2024 6:09 AM EDT GLUCOSE, BLOOD (POC) Routine 08/10/2024 6:08 AM EDT GLUCOSE, BLOOD (POC) Routine 08/10/2024 12:01 AM EDT EPIL EEG BEM - CONTINUOUS BEDSIDE W/VIDEO INCLUDES PORTABLE EEG READ Routine 08/10/2024 12:00 AM EDT GLUCOSE, BLOOD (POC) Routine 08/09/2024 6:00 PM EDT TSH BLD Routine 08/09/2024 12:34 PM EDT AMMONIA BLD Routine 08/09/2024 12:34 PM EDT FOLATE SERUM Routine 08/09/2024 12:34 PM EDT VITAMIN B1 (THIAMINE), WHOLE BLOOD Routine 08/09/2024 12:34 PM EDT VITAMIN B12 BLOOD Routine 08/09/2024 12: 34 PM EDT GLUCOSE, BLOOD (POC) Routine 08/09/2024 12:29 PM EDT PHOSPHORUS INORGANIC STAT 08/09/2024 11:01 AM EDT GLUCOSE, BLOOD (POC) Routine 08/09/2024 6:44 AM EDT COMPLETE BLOOD COUNT Routine 08/09/2024 4:48 AM EDT MAGNESIUM BLD Routine 08/09/2024 4:48 AM EDT RENAL FUNCTION PANEL Routine 08/09/2024 4:48 AM EDT GLUCOSE, BLOOD (POC) Routine 08/09/2024 12:46 AM EDT EPIL EEG BEM - CONTINUOUS BEDSIDE W/VIDEO INCLUDES PORTABLE EEG READ Routine 08/09/2024 12:00 AM EDT BACTERIAL CULTURE, URINE Routine 08/08/2024 6:14 PM EDT URINALYSIS, REFLEX MICROSCOPIC Routine 08/08/2024 6:14 PM EDT GLUCOSE, BLOOD (POC) Routine 08/08/2024 6:06 PM EDT COMPLETE BLOOD COUNT Routine 08/08/2024 4:56 PM EDT GLUCOSE, BLOOD (POC) Routine 08/08/2024 11:[address] BRAIN WO IVCON STAT 08/08/2024 10: 41 AM EDT GLUCOSE, BLOOD (POC) Routine 08/08/2024 6:21 AM EDT OSMOLALITY BLD Routine 08/08/2024 4:48 AM EDT MAGNESIUM BLD Routine 08/08/2024 4:48 AM EDT RENAL FUNCTION PANEL Routine 08/08/2024 4:48 AM EDT GLUCOSE, BLOOD [...] W/VIDEO 08/07/2024 12:00 AM EDT EPIL EEG BEM - CONTINUOUS BEDSIDE W/VIDEO INCLUDES PORTABLE EEG READ Routine 08/07/2024 12:00 AM EDT EPIL EEG BEDSIDE/PORTABLE - 20 MINUTE ONLY W/VIDEO Routine 08/07/2024 12:00 AM EDT GLUCOSE, BLOOD [...] BLOOD (POC) Routine 08/04/2024 5:39 AM EDT PHOSPHORUS INORGANIC Routine 08/04/2024 5:23 AM EDT BASIC METABOLIC PANEL Routine 08/04/2024 5:23 AM EDT COMPLETE BLOOD COUNT Routine 08/04/2024 5:23 AM EDT MAGNESIUM BLD Routine 08/04/2024 5:23 AM EDT GLUCOSE, BLOOD (POC) Routine 08/03/2024 11:47 PM EDT GLUCOSE, BLOOD (POC) Routine 08/03/2024 11:45 PM EDT GLUCOSE, BLOOD (POC) Routine 08/03/2024 5:53 PM EDT XR CHEST 1V FRONTAL STAT 08/03/2024 2 :43 PM EDT XR ABDOMEN 1V SUPINE Routine 08/03/2024 2:43 PM EDT FEEDING TUBE PLACEMENT PROCEDURE (W [...] BLOOD (POC) Routine 08/03/2024 6:04 AM EDT PHOSPHORUS INORGANIC Add-on 08/03/2024 4:20 AM EDT BASIC METABOLIC PANEL STAT 08/03/2024 4:20 AM EDT COMPLETE BLOOD COUNT STAT 08/03/2024 4:20 AM EDT MAGNESIUM BLD STAT 08/03/2024 4:20 AM EDT GLUCOSE, BLOOD (POC) Routine 08/02/2024 11:46 PM EDT GLUCOSE, BLOOD (POC) Routine 08/02/2024 7:01 PM EDT GLUCOSE, BLOOD (POC) Routine 08/02/2024 12:05 PM EDT GLUCOSE, BLOOD (POC) Routine 08/02/2024 5:32 AM EDT BASIC METABOLIC PANEL STAT 08/02/2024 5:00 AM EDT COMPLETE BLOOD COUNT STAT 08/02/2024 5:00 AM EDT MAGNESIUM BLD STAT 08/02/2024 5:00 AM EDT EPIL EEG [...] (POC) Routine 08/01/2024 5:[address] FACIAL BONE/MONICA WO IVCON STAT 08/01/2024 5:[address] CHEST WO IVCON STAT 08/01/2024 5:0 1 AM EDT PHOSPHORUS INORGANIC STAT 08/01/2024 4:42 AM EDT MAGNESIUM BLD STAT 08/01/2024 4:42 AM EDT BASIC METABOLIC PANEL STAT 08/01/2024 4:42 AM EDT COMPLETE BLOOD COUNT STAT 08/01/2024 4:42 AM EDT EPIL EEG [...] IVCON STAT 07/31/2024 10: 43 AM EDT EXTERNAL IMAGING 07/31/2024 8:41 AM EDT EXTERNAL IMAGING 07/31/2024 8:41 AM EDT URINALYSIS, WITH MICROSCOPIC STAT 07/31/2024 8:23 AM EDT TOX SCREEN ROUT UR STAT 07/31/2024 8: 23 AM EDT XR FOREARM GENERAL 2V AP/LAT RIGHT STAT 07/31/2024 7:42 AM EDT XR HUMERUS 2V AP/LAT RIGHT STAT 07/31/2024 7:42 AM EDT XR ELBOW GENERAL 2V AP/LAT RIGHT STAT 07/31/2024 7:42 AM EDT TYPE + SCREEN STAT 07/31/2024 7:00 AM EDT ACTIVATED PTT STAT 07/31/2024 7:00 AM EDT PROTHROMBIN TIME STAT 07/31/2024 7:00 AM EDT LIPASE BLD STAT 07/31/2024 7:00 AM EDT COMPREHENSIVE METABOLIC PANEL STAT 07/31/2024 7:00 AM EDT COMPLETE BLOOD COUNT STAT 07/31/2024 7:00 AM EDT ALCOHOL/ETHANOL BLD STAT 07/31/2024 7 :00 AM EDT XR PELVIS 1V AP STAT 07/31/2024 6:56 AM EDT XR CHEST 1V FRONTAL PORT STAT 07/31/2024 6:56 AM EDT EPIL EEG BEDSIDE/PORTABLE - 20 MINUTE ONLY W/VIDEO 07/31/2024 12:00 AM EDT EPIL EEG BEM - CONTINUOUS BEDSIDE W/VIDEO INCLUDES PORTABLE EEG READ Routine 07/31/2024 12:[address] OUTSIDE CD DICOM IMPORT 07/31/2024 CT OUTSIDE CD DICOM IMPORT 07/31/2024 CT OUTSIDE CD DICOM IMPORT 07/31/2024 XR OUTSIDE CD DICOM IMPORT 07/31/2024 SURGICAL PATHOLOGY Routine 06/20/2024 12 :23 PM EDT Dysphagia, unspecified type Abnormal CT of the abdomen Anemia, unspecified type EGD DIAGNOSTIC Routine 06/20/2024 11:58 AM EDT Dysphagia, unspecified type Abnormal CT of the abdomen COLONOSCOPY DIAGNOSTIC Routine 06/20/2024 11:58 AM EDT Anemia, unspecified type CBC + DIFF Routine 06/10/2024 11:07 AM EDT Pre-op evaluation Dysphagia, unspecified type Abnormal CT of the abdomen Status post tracheostomy (HCC) Nicotine use disorder, F17.2 History of seizures Cerebrovascular accident (CVA), unspecified mechanism (HCC) Anxiety and depression Chronic obstructive pulmonary disease, unspecified COPD type (HCC) LUZ (obstructive sleep apnea) Hypertension, unspecified type Congestive heart failure, unspecified HF chronicity, unspecified heart failure type (HCC) Hyperlipidemia, unspecified hyperlipidemia type Anemia of chronic disease COMPREHENSIVE METABOLIC PANEL Routine 06/10/2024 11:07 AM EDT Pre-op evaluation Dysphagia, unspecified type Abnormal CT of the abdomen Status post tracheostomy (HCC) Nicotine use disorder, F17.2 History of seizures Cerebrovascular accident (CVA), unspecified mechanism (HCC) Anxiety and depression Chronic obstructive pulmonary disease, unspecified COPD type (HCC) LUZ (obstructive sleep apnea) Hypertension, unspecified type Congestive heart failure, unspecified HF chronicity, unspecified heart failure type (HCC) Hyperlipidemia, unspecified hyperlipidemia type Anemia of chronic disease HEMOGLOBIN A1C Routine 06/03/2022 6:55 AM EDT LIPID-LIPO PANEL 1 STAT Add-on 05/01/2022 6: 56 AM EST from Last 3 Months or Most Recently Relevant to Health Maintenance Results * (ABNORMAL) GLUCOSE, BLOOD (POC) (08/15/2024 12:03 PM EDT) Only the most recent of67 resultswithin the time period is included. [facility] Glucose, Point of Care 176(A) 74 - 99 mg/dL [facility] Comment: Location:[facility], [facility] [place], [facility] The Accu-Chek Inform II glucose meter has [...] Dylon Ochoa MD POC TESTING Final Result [facility] POINT OF CARE [facility] [address] [place], [place] * (ABNORMAL) COMPLETE BLOOD COUNT (08/15/2024 6:39 AM EDT) Only the most recent of14 resultswithin the time period is included. WBC 7.66 3.70 - 11.00 k/uL 08/15/2024 6:58 AM EDT [facility] RBC 4.44 4.20 - 6.00 m/uL 08/15/2024 6:58 AM EDT [facility] Hemoglobin 9.5(L) 13.0 - 17.0 g/dL 08/15/2024 6:58 AM EDT [facility] Hematocrit 33.1(L) 39.0 - 51.0 % 08/15/2024 6:58 AM EDT [facility] MCV 74.5(L) 80.0 - 100.0 fL 08/15/2024 6:58 AM EDT [facility] MCH 21.4(L) 26.0 - 34.0 pg 08/15/2024 6:58 AM EDT [facility] MCHC 28.7(L) 30.5 - 36.0 g/dL 08/15/2024 6:58 AM EDT [facility] RDW-CV 21.5(H) 11.5 - 15.0 % 08/15/2024 6:58 AM EDT [facility] Platelet Count 880(H) 150 - 400 k/uL 08/15/2024 6:58 AM EDT [facility] MPV 9.9 9.0 - 12.7 fL 08/15/2024 6:58 AM EDT [facility] Absolute nRBC <0.01 <0.01 k/uL 08/15/2024 6:58 AM EDT [facility] Blood BLOOD SPECIMEN / Unknown Venipuncture / Unknown 08/15/2024 6:39 AM EDT 08/15/2024 6:48 AM EDT Jenna George LEAD TEACHER.[facility] Final Result Performing Organization Address [facility] Hospital/[facility] de Phone Number [facility] [address] [place] [address], * MAGNESIUM (08/15/2024 6:38 AM EDT) Only the most recent of16 resultswithin the time period is included. Magnesium 1.7 1.7 - 2.3 mg/dL 08/15/2024 7:34 AM EDT [facility] Blood BLOOD SPECIMEN / Unknown Venipuncture / Unknown 08/15/2024 6:38 AM EDT 08/15/2024 6:58 AM EDT Jenna George LEAD TEACHER.[facility] Final Result Performing Organization Address [facility] Phone Number [facility] [address] [place] [address], [place] * PHOSPHORUS INORGANIC (08/15/2024 6:38 AM EDT) Only the most recent of8 resultswithin the time period is included. Phosphorus 4.1 2.7 - 4.8 mg/dL 08/15/2024 7:34 AM EDT [facility] Blood BLOOD SPECIMEN / Unknown Venipuncture / Unknown 08/15/2024 6:38 AM EDT 08/15/2024 6:58 AM EDT Jenna George PATRICION.[facility] Final Result Performing Organization Address [facility] de Phone Number [facility] [address] [place] [address], [place] * (ABNORMAL) BASIC METABOLIC PANEL (08/15/2024 6:38 AM EDT) Only the most recent of7 resultswithin the time period is included. Glucose 132(H) 74 - 99 mg/dL 08/15/2024 7:34 AM EDT [facility] Comment: The [place] Diabetes Association (ADA) provides guidance for cutoff [...] Standards of Medical Care in Diabetes 2016, [place] [employer]. Diabetes Care. 2016.39(Suppl 1). BUN 23 9 - 24 mg/dL 08/15/2024 7:34 AM [facility] Creatinine 0.55(L) 0.73 - 1.22 mg/dL 08/15/2024 7:34 AM [facility] Sodium 137 136 - 144 mmol/L 08/15/2024 7:34 AM [facility] Potassium 4.6 3.7 - 5.1 mmol/L 08/15/2024 7:34 AM [facility] Chloride 101 98 - 107 mmol/L 08/15/2024 7:34 AM [facility] CO2 20(L) 22 - 30 mmol/L 08/15/2024 7:34 AM [facility] Anion Gap 16(H) 8 - 15 mmol/L 08/15/2024 7:34 AM [facility] Calcium, Total 9.8 8.5 - 10.2 mg/dL 08/15/2024 7:34 AM [facility] Estimated Glomerular Filtration Rate 111 >=60 mL/min/1. 73m 08/15/2024 7:34 AM [facility] Comment:Estimated Glomerular Filtration Rate (eGFR) [...] 08/15/2024 6:58 AM EDT us Jenna Vazquez LEAD TEACHER.[facility] Final Result [facility] [address] [place] [address], * (ABNORMAL) COMPREHENSIVE METABOLIC PANEL (08/12/2024 7:30 AM EDT) Only the most recent of3 resultswithin the time period is included. Pathologist [facility] Protein, Total 7.8 6.3 - 8.0 g/dL 08/12/2024 8:14 AM EDT [facility] Albumin 3.9 3.9 - 4.9 g/dL 08/12/2024 8:14 AM EDT [facility] Calcium, Total 9.4 8.5 - 10.2 mg/dL 08/12/2024 8:14 AM EDT [facility] Bilirubin, Total 0.2 0.2 - 1.3 mg/dL 08/12/2024 8:[facility] Alkaline Phosphatase 157(H) 38 - 113 U/L 08/12/2024 8:14 AM EDT [facility] AST 29 14 - 40 U/L 08/12/2024 8:14 AM EDT [facility] ALT 30 10 - 54 U/L 08/12/2024 8:14 AM EDT [facility] Glucose 141(H) 74 - 99 mg/dL 08/12/2024 8:14 AM [facility] Comment: The [place] Diabetes Association (ADA) provides guidance for cutoff [...] Standards of Medical Care in Diabetes 2016, [place] [employer]. Diabetes Care. 2016.39(Suppl 1). BUN 20 9 - 24 mg/dL 08/12/2024 8:14 AM EDT [facility] Creatinine 0.48(L) 0.73 - 1.22 mg/dL 08/12/2024 8:14 AM EDT [facility] Sodium 136 136 - 144 mmol/L 08/12/2024 8:14 AM EDT [facility] Potassium 4.4 3.7 - 5.1 mmol/L 08/12/2024 8:14 AM EDT [facility] Chloride 101 98 - 107 mmol/L 08/12/2024 8:14 AM EDT [facility] CO2 23 22 - 30 mmol/L 08/12/2024 8:14 AM EDT [facility] Anion Gap 12 8 - 15 mmol/L 08/12/2024 8:14 AM EDT [facility] Estimated Glomerular Filtration Rate 116 >=60 mL/min/1. 73m 08/12/2024 8:14 AM EDT [facility] Comment:Estimated Glomerular Filtration Rate (eGFR) is [...] 08/12/2024 7:49 AM EDT us Jenna Vazquez LEAD TEACHER.[facility] Final Result [facility] [address] * (ABNORMAL) RENAL FUNCTION PANEL (08/10/2024 6:09 AM EDT) Only the most recent of8 resultswithin the time period is included. Albumin 3.7(L) 3.9 - 4.9 g/dL 08/10/2024 7:42 AM EDT [facility] Calcium, Total 9.4 8.5 - 10.2 mg/dL 08/10/2024 7:42 AM EDT [facility] Phosphorus 3.3 2.7 - 4.8 mg/dL 08/10/2024 7:42 AM EDT [facility] Glucose 143(H) 74 - 99 mg/dL 08/10/2024 7:42 AM [facility] Comment: The [place] Diabetes Association (ADA) provides guidance for cutoff [...] Standards of Medical Care in Diabetes 2016, [place] Diabetes [employer]. Diabetes Care. 2016.39(Suppl 1). BUN 18 9 - 24 mg/dL 08/10/2024 7:42 AM [facility] Creatinine 0.45(L) 0.73 - 1.22 mg/dL 08/10/2024 7:42 AM [facility] Sodium 134(L) 136 - 144 mmol/L 08/10/2024 7:42 AM [facility] Potassium 4.3 3.7 - 5.1 mmol/L 08/10/2024 7:42 AM [facility] Chloride 98 98 - 107 mmol/L 08/10/2024 7:42 AM [facility] CO2 22 22 - 30 mmol/L 08/10/2024 7:42 AM [facility] Anion Gap 14 8 - 15 mmol/L 08/10/2024 7:42 AM [facility] Estimated Glomerular Filtration Rate 118 >=60 mL/min/1. 73m 08/10/2024 7:42 AM [facility] Comment:Estimated Glomerular Filtration Rate (eGFR) [...] EDT 08/10/2024 7:18 AM EDT us Black Parra LEAD TEACHER.[facility]OR[facility] Final Result [facility] [address] [place] [address], * EPIL EEG BEM - CONTINUOUS BEDSIDE W/VIDEO INCLUDES PORTABLE EEG READ (08/10/2024 12:00 AM EDT) 08/10/2024 Narrative NEUROLOGY - 08/11/2024 12:32 PM EDT [facility] EPIL EEG BEM - Continuous bedside w/video includes portable EEG read [[id number]] Patient name: SARAY CORBIN Date of test: 08/10/2024 Requested By: BLACK PARRA Staff Physician: Pavithra Givens EEG Fellow or [place]: Qian Meléndez History: Per record: Patient is [...] Impression: This bedside EEG was recorded from [id number] on 08/10/2024 and is suggestive of cerebral dysfunction maximum in the left hemisphere and a severe diffuse encephalopathy. No epileptiform discharges or EEG seizures were recorded. Interpreted and electronically signed by Pavithra Givens Date of signin08/11/2024 12:32 Black Parra LEAD TEACHER.[facility] NEUROLOGY Final Result Performing Organization Address City/[facility]/ZIP Co de Phone Number NEUROLOGY [address] [place] [address], [place] [phone] * (ABNORMAL) VITAMIN B1 (THIAMINE), WHOLE BLOOD (08/09/2024 12:34 PM EDT) Vitamin B1 (Thiamine diphosphate), Whole Blood 458.8(H) 84.3 - 213.3 nmol/L 08/19/2024 1:43 PM EDT [facility] Comment: Result rechecked. This assay measures the concentration of thiamine diphosphate (TDP), the primary active form of vitamin B1. Approximately 90 percent of vitamin B1 present in whole blood is TDP. Thiamine and thiamine monophosphate, which comprise the remaining 10 percent, are not measured. This test was developed, and its performance characteristics determined by the [facility] Department of Pathology and Laboratory Medicine. It has not been cleared or approved by the FDA. The [facility] Department of Pathology and Laboratory Medicine is regulated under CLIA as qualified to perform high- complexity testing. This test is used for clinical purposes. It should not be regarded as investigational or for research. Blood BLOOD SPECIMEN / Unknown Venipuncture / Unknown 08/09/2024 12:34 PM EDT 08/09/2024 12:47 PM EDT Lance Escobedo LEAD TEACHER.[facility] Final Result Performing Organization Address City/[facility]/ZIP Co de Phone Number [facility] [address] [facility] [address] [place] [address], [place] * VITAMIN B12 (08/09/2024 12:34 PM EDT) Vitamin B12 458 232 - 1,245 pg/mL 08/09/2024 1:36 PM EDT [facility] Blood BLOOD SPECIMEN / Unknown Venipuncture / Unknown 08/09/2024 12:34 PM EDT 08/09/2024 12:47 PM EDT Lance Escobedo APRN.[facility] Final Result Performing Organization Address [facility] Co de Phone Number [facility] [id number] [place] [address], [place] * THYROID STIMULATING HORMONE (08/09/2024 12:34 PM EDT) Pathologist [facility] TSH 2.070 0.270 - 4.200 mIU/L 08/09/2024 1:26 PM EDT [facility] Blood BLOOD SPECIMEN / Unknown Venipuncture / Unknown 08/09/2024 12:34 PM EDT 08/09/2024 12:47 PM EDT Lance Escobedo LEAD TEACHER.[facility] Final Result Performing Organization Address [facility] Phone Number [facility] [address] [place] [address], [place] * FOLATE, SERUM (08/09/2024 12:34 PM EDT) Pathologist [facility] Folate >20.0 >4.7 ng/mL 08/09/2024 1:36 PM EDT [facility] Comment: A result of > 20 ng/mL is not necessarily indicative of a pathologic or treatable condition: it reflects a limitation of the test methodology. Assay reference range: 4.8 to 24.2 ng/mL. Suitable for detection of folate deficiency. Reference: Folate III (Folate III) [package insert V 1.0 Nepali]. [facility], [place], [place]: January 2015. Blood BLOOD SPECIMEN / Unknown Venipuncture / Unknown 08/09/2024 12:34 PM EDT 08/09/2024 12:47 PM EDT Lance Escobedo APRN.[facility] Final Result Performing Organization Address [facility] Co de Phone Number [facility] [id number] [place] [address], [place] * AMMONIA (08/09/2024 12:34 PM EDT) Ammonia 17 16 - 60 umol/L 08/09/2024 1:44 PM EDT [facility] Blood BLOOD SPECIMEN / Unknown Venipuncture / Unknown 08/09/2024 12:34 PM EDT 08/09/2024 12:47 PM EDT us Lance Escobedo LEAD TEACHER.[facility] Final Result [facility] [address] [place] [address], * EPIL EEG BEM - CONTINUOUS BEDSIDE W/VIDEO INCLUDES PORTABLE EEG READ (08/09/2024 12:00 AM EDT) 08/09/2024 Narrative NEUROLOGY - 08/10/2024 11:12 AM EDT [facility] EPIL EEG BEM - Continuous bedside w/video includes portable EEG read [[id number]] Patient name: SARAY CORBIN Date of test: 08/09/2024 Requested By: BLACK PARRA Staff Physician: Pavithra Givens EEG Fellow or [place]: Teresa Burgess History: Per record: Patient is [...] by Pavithra Givens Date of signin08/10/2024 11:12 us Black Parra APRN.[facility] NEUROLOGY Final Result NEUROLOGY [address] [place] [address], * (ABNORMAL) URINALYSIS, REFLEX MICROSCOPIC (08/08/2024 6:14 PM EDT) Color Yellow Yellow 08/08/2024 6:29 PM EDT [facility] Clarity Dense Turbid(A) Clear 08/08/2024 6:29 PM EDT [facility] Glucose, Urine Negative Trace, Negative 08/08/2024 6:29 PM EDT [facility] Bilirubin, Urine Negative Negative 08/09/19 6:29 PM EDT [facility] Ketones, Urine Negative Negative, Trace 08/08/2024 6:29 PM EDT [facility] Specific [place], Ur 1.022 1.005 - 1.030 08/08/2024 6:29 PM EDT [facility] Hemoglobin/Blood ,Ur Negative Negative, Trace 08/08/2024 6:29 PM EDT [facility] pH, Urine 8.0 5.0 - 8.0 08/08/2024 6:29 PM EDT [facility] Protein, Urine Trace Trace, Negative 08/08/2024 6:29 PM EDT [facility] Urobilinogen Normal Normal 08/08/2024 6:29 PM EDT [facility] Nitrites Negative Negative 08/08/2024 6:29 PM EDT [facility] Leuk Esterase Negative Negative, 25 Felisha/uL 08/08/2024 6:29 PM EDT [facility] WBC, Urine 0-5 /HPF 0-5 /HPF 08/08/2024 6:29 PM EDT [facility] RBC, Urine 3-5 /HPF(A) 0-3 /HPF 08/08/2024 6:29 PM EDT [facility] Bacteria Moderate(A) None Seen /HPF 08/08/2024 6:29 PM EDT [facility] Urine URINE SPECIMEN / Unknown Non Blood / Unknown 08/08/2024 6:14 PM EDT 08/08/2024 6:18 PM EDT Jenna Vazquez APRN.[facility] Final Result Performing Organization Address City/[facility]/ZIP Co de Phone Number [facility] [address] [place] [address], * (ABNORMAL) BACTERIAL CULTURE, URINE (08/08/2024 6:14 PM EDT) Culture, Urine 1,000 - <5,000 CFU/ml Mixed microbiota including 4 different colony types, and no one type predominating. No further workup.(A) 08/10/2024 4:05 PM EDT [facility] Urine URINE SPECIMEN / Unknown Non Blood / Unknown 08/08/2024 6:14 PM EDT 08/08/2024 6:18 PM EDT Jenna Vazquez APRN.[facility] Final Result [facility] [address] [place] [id number], * CT BRAIN WO IVCON (08/08/2024 10:41 [...] HEMORRHAGE WITHIN THE FOURTH VENTRICLE SINCE 08/06/2024. Trial Management Associate: ANGE Transcribe Date/Time: Aug 08 2024 10:42A Dictated [...] tube is again noted. Procedure Note Provider, [facility] [place] - 08/08/2024 * * *Final Report* * [...] HEMORRHAGE WITHIN THE FOURTH VENTRICLE SINCE 08/06/2024. Trial Management Associate: ANGE Transcribe Date/Time: Aug 08 2024 10:42A Dictated by : ELEUTERIO CÁRDENAS MD This examination was interpreted and the report reviewed and electronically signed by: ELEUTERIO CÁRDENAS MD on Aug 08 2024 10:49AM EST us Jenna George LEAD TEACHER.PRESSER MACHINE [facility] Final Result * OSMOLALITY (08/08/2024 4:48 AM EDT) Only the most recent of2 resultswithin the time period is included. Osmolality 282 275 - 300 mOsm/kg 08/08/2024 5:26 AM EDT [facility] Blood BLOOD SPECIMEN / Unknown Venipuncture / Unknown 08/08/2024 4:48 AM EDT 08/08/2024 5:15 AM EDT us Black Parra APRN.[facility] Final Result [facility] [address] [place] [address], * EPIL EEG BEM - CONTINUOUS BEDSIDE W/VIDEO INCLUDES PORTABLE EEG READ (08/08/2024 12:00 AM EDT) 08/08/2024 Narrative NEUROLOGY - 08/09/2024 11:31 AM EDT [facility] EPIL EEG BEM - Continuous bedside w/video includes portable EEG read [[id number]] Patient name: SARAY CORBIN Date of test: 08/08/2024 Requested By: BLACK PARRA Staff Physician: Pavithra Givens EEG Fellow or [place]: Holly Khan History: Per record: Patient is [...] Givens Date of signin08/09/2024 11:31 us Black Parra APRN.[facility] NEUROLOGY Final Result NEUROLOGY [address] [place] [address], * EPIL EEG BEDSIDE/PORTABLE - 20 MINUTE ONLY W/VIDEO (08/07/2024 12:00 AM EDT) 08/07/2024 Narrative NEUROLOGY - 08/07/2024 3:50 PM EDT [facility] EPIL EEG Bedside/Portable - 20 minute only w/video [[id number]] Patient name: SARAY CORBIN Start of test: 08/07/2024 14:15 End of test: 08/07/2024 14:38 Duration: 0 hr 23 min Requested By: BLACK PARRA Staff Physician: Pavithra Givens EEG Fellow or [place]: Yariel Mcelroy History: Per record: Patient is [...] Givens Date of signin08/07/2024 15:50 us Black Parra LEAD TEACHER.[facility] NEUROLOGY Final Result NEUROLOGY [address] [place] [address], * EPIL EEG BEDSIDE/PORTABLE - 20 MINUTE ONLY W/VIDEO (08/07/2024 12:00 AM EDT) 08/07/2024 Narrative NEUROLOGY - 08/07/2024 4:37 AM EDT [facility] EPIL EEG Bedside/Portable - 20 minute only w/video [[id number]] Patient name: SARAY CORBIN Start of test: 08/07/2024 01:54 End of test: 08/07/2024 02:17 Duration: 0 hr 23 min Requested By: RAIZA GOMEZ Staff Physician: Azucena Rahman EEG Fellow or [place]: Matt Fernandez History: Per record: Patient is [...] Rahman Date of signin08/07/2024 04:37 us Raiza Gomez APRN.[facility] NEUROLOGY Final R esult NEUROLOGY [address] [place] [address], * EPIL EEG BEM - CONTINUOUS BEDSIDE W/VIDEO INCLUDES PORTABLE EEG READ (08/07/2024 12:00 AM EDT) 08/07/2024 Narrative NEUROLOGY - 08/08/2024 11:47 AM EDT [facility] EPIL EEG BEM - Continuous bedside w/video includes portable EEG read [[id number]] Patient name: SARAY CORBIN Date of test: 08/07/2024 Requested By: BLACK PARRA Staff Physician: Pavithra Givens EEG Fellow or [place]: Alanna Fernandez History: Per record: Patient is [...] by Pavithra Givens Date of signin08/08/2024 11:47 Black Parra APRN.CNP NEUROLOGY Final Result Performing Organization Address [facility] Co de Phone Number NEUROLOGY [address] [place] [address], * SODIUM RANDOM URINE (08/06/2024 2:52 PM EDT) Sodium, Urine Random 170 14 - 216 mmol/L 08/07/2024 8:25 AM EDT [facility] Urine URINE SPECIMEN / Unknown Non Blood / Unknown 08/06/2024 2:52 PM EDT 08/06/2024 2:59 PM EDT Raiza Gomez APRN.CNP LABORATORY Final R esult Performing Organization Address [facility]/ZIP Co de Phone Number [facility] [address] [facility] [address] [place] [address], [place] * OSMOLALITY URINE (08/06/2024 2:52 PM EDT) Osmolality, Urine 596 50 - 1,200 mOsm/kg 08/06/2024 3:31 PM EDT [facility] Urine URINE SPECIMEN / Unknown Non Blood / Unknown 08/06/2024 2:52 PM EDT 08/06/2024 2:59 PM EDT us Raiza Gomez LEAD TEACHER.[facility] LABORATORY Final R esult [facility] [address] [place] [address], * CT BRAIN WO IVCON (08/06/2024 11:02 [...] ALONG THE LEFT TENTORIUM, IMPROVED SINCE 08/01/2024. Trial Management Associate: [facility] Transcribe Date/Time: Aug 06 2024 11:56A Dictated [...] is new since 08/01/2024. Procedure Note Provider, [facility] - 08/06/2024 * * *Final Report* * [...] ALONG THE LEFT TENTORIUM, IMPROVED SINCE 08/01/2024. Trial Management Associate: [facility] Transcribe Date/Time: Aug 06 2024 11:56A Dictated by : ELEUTERIO CÁRDENAS MD This examination was interpreted and the report reviewed and electronically signed by: ELEUTERIO CÁRDENAS MD on Aug 06 2024 12:09PM EST us Raiza Gomez APRN.PRESSER MACHINE CT[facility] Final R esult * XR MODIFIED BARIUM SWALLOW W SPEECH THERAPY (08/05/2024 2:01 PM EDT) Anatomical Region Laterality Modality Neck Radiographic Adriana ging 08/05/2024 2:01 PM EDT Impressions 08/05/2024 2:21 PM EDT IMPRESSION: The speech pathologist report and recommendations are present in the notes component of [facility] Trial Management Associate: [facility] Transcribe Date/Time: Aug 05 2024 2:19P [...] evaluation by speech pathologist Procedure Note Provider, [facility] [place] - 08/05/2024 * * *Final Report* * [...] are present in the notes component of [facility] Trial Management Associate: [facility] Transcribe Date/Time: Aug 05 2024 2:19P Dictated by : GUSTAVO QUINTANA MD This examination was interpreted and the report reviewed and electronically signed by: GUSTAVO QUINTANA MD on Aug 05 2024 2:19PM EST us Black Parra APRN.PRESSER MACHINE RAD-[facility] Final Result * ECG COMPLETE (08/05/2024 8:48 AM EDT) Ventricular Rate 99 BPM [facility] Atrial Rate 99 BPM [facility] P-R Interval 130 ms [facility] QRS Duration 95 ms [facility] QT Interval 379 ms [facility] QTC Calculation (Bazett) 487 ms [facility] Calculated P [place] 50 degrees [facility] Calculated R [place] -41 degrees [facility] Calculated T [place] 63 degrees [facility] 08/05/2024 8:48 AM EDT Impressions [facility] - 08/05/2024 2:44 PM EDT Sinus rhythm Probable left atrial enlargement Left anterior fascicular block Left ventricular hypertrophy Anterior infarct, old Abnormal ECG Confirmed by JESIKA HUMMEL M.D. ([id number]) on 08/05/2024 2:44:17 PM Narrative [facility] - 08/05/2024 2:44 PM EDT NAME : SARAY CORBIN PID : [id number] : 1960 Gender : Male Race : ORD : [id number] Procedure Date : Aug 05 2024 08:48:03 [...] JESIKA HUMMEL M.D. Referred By : MILLY JACKSON JR Acquired by : PHIL DORSEY us Black Parra LEAD TEACHER.PRESSER MACHINE EKG Final Result [facility] [address] [place] [id number] * ECG COMPLETE (08/04/2024 7:34 AM EDT) Ventricular Rate 96 BPM [facility] Atrial Rate 97 BPM [facility] P-R Interval 158 ms [facility] QRS Duration 92 ms [facility] QT Interval 430 ms [facility] QTC Calculation (Bazett) 544 ms [facility] Calculated P [place] 75 degrees [facility] Calculated R [place] -34 degrees [facility] Calculated T [place] 89 degrees [facility] 08/04/2024 7:34 AM EDT Impressions [facility] - 08/05/2024 2:52 PM EDT Sinus rhythm Left axis deviation Anteroseptal infarct, age indeterminate Prolonged QT interval Abnormal ECG Confirmed by JESIKA HUMMEL M.D. ([id number]) on 08/05/2024 2:52:28 PM Narrative [facility] - 08/05/2024 2:52 PM EDT NAME : SARAY CORBIN PID : [id number] : 1960 Gender : Male Race : ORD : [id number] Procedure Date : Aug 04 2024 07:34:30 [...] JESIKA HUMMEL M.D. Referred By : MILLY JACKSON JR Acquired by : BEATA PORTER us Black Parra LEAD TEACHER.PRESSER MACHINE EKG Final Result [facility] [address] [id number] * XR ABDOMEN 1V SUPINE (08/03/2024 2:43 PM EDT) Anatomical Region Laterality Modality Abdomen Radiographic Adriana ging 08/03/2024 2:43 PM EDT Impressions 08/03/2024 5:11 PM EDT IMPRESSION: Enteric feeding tube tip projects near the pylorus. Trial Management Associate: ANGE Transcribe Date/Time: Aug 03 2024 5:08P Dictated [...] of the upper abdomen. Procedure Note Provider, [facility] [place] - 08/03/2024 * * *Final Report* * [...] feeding tube tip projects near the pylorus. [facility] Transcribe Date/Time: Aug 03 2024 5:08P Dictated by : SHELBY CREWS MD This examination was interpreted and the report reviewed and electronically signed by: SHELBY CREWS MD on Aug 03 2024 5:08PM EST us Black Parra APRN.PRESSER MACHINE RAD-[facility] Final Result * XR CHEST 1V FRONTAL (08/03/2024 2:43 PM EDT) Anatomical Region Laterality Modality Chest Radiographic Adriana ging 08/03/2024 2:43 PM EDT Impressions 08/03/2024 4:28 PM EDT IMPRESSION: Overall stable exam with no definite acute radiographic abnormality. Trial Management Associate: ANGE Transcribe Date/Time: Aug 03 2024 4:24P Dictated [...] post cervical spine surgery. Procedure Note Provider, [facility] [place] - 08/03/2024 * * *Final Report* * [...] exam with no definite acute radiographic abnormality. Trial Management Associate: ANGE Transcribe Date/Time: Aug 03 2024 4:24P Dictated by : MYNOR REYNOLDS MD This examination was interpreted and the report reviewed and electronically signed by: MYNOR REYNOLDS MD on Aug 03 2024 4:26PM EST us Black Parra APRN.CNP RAD-[facility] Final Result * FEEDING TUBE (08/03/2024 1:54 PM EDT) Narrative Black Parra APRN.CNP - 08/03/2024 1:54 PM EDT Black Parra APRN.CNP 08/03/2024 1:55 PM FEEDING TUBE Performed by: Black Parra APRN.CNP Authorized by: Black Parra APRN.CNP Where was Patient When this Procedure was Performed: Bedside/Unscheduled Procedure Room Informed Consent Consent Obtained: Verbal [place] Protocol A moment to CARE was completed. [...] SIGN OUT No specimen collected. us Black Parra APRN.CNP PROCEDURE Final Result * EPIL EEG BEM - CONTINUOUS BEDSIDE W/VIDEO INCLUDES PORTABLE EEG READ (08/02/2024 12:00 AM EDT) 08/02/2024 Narrative NEUROLOGY - 08/02/2024 3:02 PM EDT [facility] [place] EPIL EEG BEM - Continuous bedside w/video includes portable EEG read [[id number]] Patient name: SARAY CORBIN Date of test: 08/02/2024 Requested By: AMADEO ANAYA Staff Physician: Anirudh Castellanos M.D. EEG Fellow or [place]: Antonio Garza History: 63 year old male [...] Fronto-temporal Impression: Continuous Video-EEG was reviewed from [id number] on 08/02/2024 and is suggestive of a cortical dysfunction in the left fronto-temporal region. There is also evidence of a moderate diffuse encephalopathy. No epileptiform discharges or EEG seizures were recorded. Interpreted and electronically signed by Anirudh Castellanos M.D. Date of signin08/02/2024 15:02 us Amadeo Anaya APRN.[facility] NEUROLOGY Final Result NEUROLOGY [address] [place] [address], * MRI BRAIN WO/W IVCON (08/01/2024 9:06 PM EDT) Anatomical Region Laterality Modality Head Magnetic Resonan ce 08/01/2024 9:06 PM EDT Impressions 08/01/2024 9:32 PM EDT IMPRESSION: Small focus of diffusion restriction posterior LEFT aspect of the patsy as above. Stable intraventricular blood products. Trial Management Associate: PSCB Transcribe Date/Time: Aug 01 2024 9:23P Dictated by : SEVEN HUMPHREY MD This examination was interpreted and the report reviewed and electronically signed by: SEVEN HUMPHREY MD on Aug 01 2024 9:30PM EST Narrative 08/01/2024 9:32 PM EDT * * *Final Report* * * DATE OF EXAM: Aug 01 2024 9:06PM [facility] 0295 - MRI BRAIN WO/W IVCON / [...] paranasal sinus inflammatory disease. Procedure Note Provider, [facility] - 08/01/2024 * * *Final Report* * * DATE OF EXAM: Aug 01 2024 9:06PM [facility] 0295 - MRI BRAIN WO/W IVCON / [...] patsy as above. Stable intraventricular blood products. Trial Management Associate: PSCB Transcribe Date/Time: Aug 01 2024 9:23P Dictated by : SEVEN HUMPHREY MD This examination was interpreted and the report reviewed and electronically signed by: SEVEN HUMPHREY MD on Aug 01 2024 9:30PM EST Jacquelyn Dsouza PA-C MRI-PAMA Final Result * LVEF ECHO (08/01/2024 7:25 AM EDT) LV Ejection Fraction 56 % [facility] Comment: (2D biplane) EF > 52 An LV Ejection Fraction of > 50% is normal 08/01/2024 7:25 AM EDT us Amadeo Anaya LEAD TEACHER.PRESSER MACHINE LVEF RESULTS Final Result [facility] [address] [place] [address] * ECHO (08/01/2024 7:25 AM EDT) 08/01/2024 7:25 AM EDT Impressions [facility] - 08/01/2024 2:50 PM EDT CONCLUSIONS: - [...] * * Final * * * Narrative [facility] - 08/01/2024 2:50 PM EDT Echocardiography Report: Transthoracic Echo [facility] Date of service: 08/01/2024 7:25:25 AM Ordering physician: AMADEO ANAYA Indication: Syncope Technologist: Bharat Lee [facility] Interpreting physician: Negrita Saleh MD PATIENT: Name: [...] normal. PERICARDIUM There is no pericardial effusion. us Amadeo Anaya LEAD TEACHER.PRESSER MACHINE ECHO Final Result Performing Organization Address City/State/[facility] Co de Phone Number [facility] [address] [phone] * CT BRAIN WO IVCON (08/01/2024 6:38 AM EDT) Anatomical Region Laterality Modality Head Computed Tomogra phy 08/01/2024 6:38 AM EDT Impressions 08/01/2024 6:44 AM EDT IMPRESSION: Examination not significantly changed from 07/31/2024. Trial Management Associate: [facility] Transcribe Date/Time: Aug 01 2024 6:38A Dictated by : MATT AGUILERA MD This examination was interpreted and the report reviewed and electronically signed by: MATT AGUILERA MD on Aug 01 2024 6:42AM EST Narrative 08/01/2024 6:44 AM EDT * * *Final Report* * * DATE OF EXAM: Aug 01 2024 6:38AM [facility] 0504 - CT BRAIN WO IVCON / PROCEDURE REASON: Head trauma, moderate-severe * * * * Physician Interpretation * * * * EXAMINATION: CT BRAIN WO IVCON CLINICAL HISTORY: Head trauma. TECHNIQUE: Serial axial images without IV contrast were obtained from the vertex to the foramen magnum. : [id number]_3 CT Radiation dose: Integrated Dose-Length Product [...] images: No significant findings. Procedure Note Provider, [facility] - 08/01/2024 * * *Final Report* * * DATE OF EXAM: Aug 01 2024 6:38AM [facility] 0504 - CT BRAIN WO IVCON [...] IMPRESSION: Examination not significantly changed from 07/31/2024. Trial Management Associate: ANGE Transcribe Date/Time: Aug 01 2024 6:38A Dictated by : MATT AGUILERA MD This examination was interpreted and the report reviewed and electronically signed by: MATT AGUILERA MD on Aug 01 2024 6:42AM EST us Dylon Ochoa MD CT-PAMA Final Result * (ABNORMAL) CT CHEST WO IVCON (08/01/2024 5:01 AM EDT) Pathologist [facility] Radiology Result ACTIONABLE (Actionabl e) [facility] Comment: This report contains an incidental [...] from the initial exam) --END OF FINDING-- Trial Management Associate: ANGE Transcribe Date/Time: Aug 01 2024 5:19A [...] images: No additional findings. Procedure Note Provider, [facility] - 08/01/2024 * * *Final Report* * [...] from the initial exam) --END OF FINDING-- Trial Management Associate: ANGE Transcribe Date/Time: Aug 01 2024 5:19A Dictated by : LEEROY EDMONDS MD This examination was interpreted and the report reviewed and electronically signed by: LEEROY EDMONDS MD on Aug 01 2024 5:36AM EST Amadeo Anaya LEAD TEACHER.PRESSER MACHINE CT-PAMA Final Result * CT FACIAL BONE/MONICA WO IVCON (08/01/2024 5:01 AM EDT) Anatomical Region Laterality Modality Mandible Computed Tomogra phy 08/01/2024 5:00 AM EDT Impressions 08/01/2024 5:26 AM EDT IMPRESSION: No acute maxillofacial fracture. Similar distribution of intraventricular hemorrhage when compared to the prior head CT. Trial Management Associate: [facility] Transcribe Date/Time: Aug 01 2024 5:20A Dictated by : KEITH CONN MD This examination was interpreted and the report reviewed and electronically signed by: KIETH CONN MD on Aug 01 2024 5:24AM [...] CT.. Scattered dental caries. Procedure Note Provider, [facility] - 08/01/2024 * * *Final Report* * [...] when compared to the prior head CT. Trial Management Associate: ANGE Transcribe Date/Time: Aug 01 2024 5:20A Dictated by : KEITH CONN MD This examination was interpreted and the report reviewed and electronically signed by: KEITH CONN MD on Aug 01 2024 5:24AM EST Amadeo Anaya LEAD TEACHER.PRESSER MACHINE CT-PAMA Final Result * EPIL EEG BEM - CONTINUOUS BEDSIDE W/VIDEO INCLUDES PORTABLE EEG READ (08/01/2024 12:00 AM EDT) 08/01/2024 Narrative NEUROLOGY - 08/02/2024 11:58 AM EDT [facility] EPIL EEG BEM - Continuous bedside w/video includes portable EEG read [[id number]] Patient name: SARAY CORBIN Date of test: 08/01/2024 Requested By: AMADEO ANAYA Staff Physician: Anirudh Castellanos M.D. EEG Fellow or [place]: Antonio Garza History: 63 year old male [...] Fronto-temporal Impression: Continuous Video-EEG was reviewed from 09 on 08/01/2024 to 899 on 08/02/2024 and is suggestive of a cortical dysfunction in the left fronto-temporal region. There is also evidence of a moderate diffuse encephalopathy. No epileptiform discharges or EEG seizures were recorded. Interpreted and electronically signed by Anirudh Castellanos M.D. Date of signin08/02/2024 11:58 Amadeo Anaya LEAD TEACHER.PRESSER MACHINE NEUROLOGY Final Result NEUROLOGY [address] [place] [address], * US CAROTID BILATERAL (07/31/2024 6:53 PM EDT) Anatomical Region Laterality Modality Neck Ultrasound 07/31/2024 6:53 PM EDT Impressions 08/01/2024 7:13 AM EDT IMPRESSION: Bilateral carotid artery duplex with approximately 0-29% stenosis bilaterally. Note: The percentage of stenosis was determined from the NASCET criteria. Trial Management Associate: PSCB Transcribe Date/Time: Aug 01 2024 7:09A Dictated by : SANA MOONEY MD This examination was interpreted and the report reviewed and electronically signed by: SANA MOONEY MD on Aug 01 2024 7:11AM EST Narrative 08/01/2024 7:13 AM EDT * * *Final Report* * * DATE OF EXAM: Jul 31 2024 6:53PM [facility] 1077 - US CAROTID ARI / PROCEDURE REASON: Other * * * * Physician Interpretation * * * * BILATERAL CAROTID ULTRASOUND DOPPLER: CLINICAL DATA: Syncope RESULT: Internal carotid artery peak systolic velocity (cm/s): [id number] Qsva465 Internal carotid artery end diastolic velocity (cm/s): Right38 Left50 Common carotid artery peak systolic velocity (cm/s): [id number] Aqog601 External carotid artery peak systolic velocity (cm/s): Zyaqk331 Dtlt471 ICA/CCA systolic velocity ratio: Right0.7 Left0.9 Vertebral arteries: Antegrade bilaterally Comments: The grayscale images demonstrate a small amount of plaque in the right bulb, the right proximal internal carotid artery, the left bulb, and the left internal carotid artery. . Procedure Note Provider, [facility] - 08/01/2024 * * *Final Report* * * DATE OF EXAM: Jul 31 2024 6:53PM [facility] 1077 - US CAROTID ARI / PROCEDURE REASON: Other * * * * Physician Interpretation * * * * BILATERAL CAROTID ULTRASOUND DOPPLER: CLINICAL DATA: Syncope RESULT: Internal carotid artery peak systolic velocity (cm/s): [id number] Vvmt818 Internal carotid artery end diastolic velocity (cm/s): Right38 Left50 Common carotid artery peak systolic velocity (cm/s): Jpmde118 Umup263 External carotid artery peak systolic velocity (cm/s): [id number] ICA/CCA systolic velocity ratio: Right0.7 Left0.9 Vertebral arteries: Antegrade bilaterally Comments: The grayscale images demonstrate a small amount of plaque in the right bulb, the right proximal internal carotid artery, the left bulb, and the left internal carotid artery. . IMPRESSION IMPRESSION: Bilateral carotid artery duplex with approximately 0-29% stenosis bilaterally. Note: The percentage of stenosis was determined from the NASCETcriteria. Trial Management Associate: PSCB Transcribe Date/Time: Aug 01 2024 7:09A Dictated by : SANA MOONEY MD This examination was interpreted and the report reviewed and electronically signed by: SANA MOONEY MD on Aug 01 2024 7:11AM EST Amadeo Anaya LEAD TEACHER.PRESSER MACHINE US-[facility] Final Result * STAPHYLOCOCCUS AUREUS & MRSA SCREEN, PCR, NASAL (07/31/2024 11:56 AM EDT) Staphylococcus aureus DNA Not Detected Not Detected CEPHEID GENEXPERT COVID19 07/31/2024 8:11 PM EDT [facility] Swab POSTERIOR NARES / Unknown Non Blood / Unknown 07/31/2024 11:56 AM EDT 07/31/2024 12:10 PM EDT Ryder Lorenzana MD LABORATORY Final Re sult [facility] [address] [place] [address], * CT BRAIN WO IVCON (07/31/2024 10:43 AM EDT) Anatomical Region Laterality Modality Head Computed Tomogra phy 07/31/2024 10:4 3 AM EDT Impressions 07/31/2024 11:27 AM EDT IMPRESSION: 1. Intraventricular and subarachnoid hemorrhage again seen. Similar to prior study. 2. Layering blood products in the right maxillary sinus and left sphenoid sinus, unchanged Trial Management Associate: ANGE Transcribe Date/Time: Jul 31 2024 11:13A [...] images: No additional findings. Procedure Note Provider, [facility] - 07/31/2024 * * *Final Report* * [...] maxillary sinus and left sphenoid sinus, unchanged Trial Management Associate: ANGE Transcribe Date/Time: Jul 31 2024 11:13A Dictated by : GUSTAVO QUINTANA MD This examination was interpreted and the report reviewed and electronically signed by: GUSTAVO QUINTANA MD on Jul 31 2024 11:25AM EST us Ryder Lorenzana MD CT-PAMA Final Re sult * EXTERNAL IMAGING (07/31/2024 8:41 AM EDT) Anatomical Region Laterality Modality Other External Provider PA-C RADIOLOGY Final Res ult * EXTERNAL IMAGING (07/31/2024 8:41 AM EDT) Anatomical Region Laterality Modality Other External Provider PA-C RADIOLOGY Final Res ult * (ABNORMAL) URINALYSIS, WITH MICROSCOPIC (07/31/2024 8:23 AM EDT) Color Colorless Yellow 07/31/2024 8:36 AM EDT [facility] Clarity Clear Clear 07/31/2024 8:36 AM EDT [facility] Glucose, Urine 4+(A) Trace, Negative 07/31/2024 8:36 AM EDT [facility] Bilirubin, Urine Negative Negative 08/01/19 8:36 AM EDT [facility] Ketones, Urine Negative Negative, Trace 07/31/2024 [facility] Specific [place], Ur 1.011 1.005 - 1.030 07/31/2024 8:36 AM EDT [facility] Hemoglobin/Blood ,Ur Negative Negative, Trace 07/31/2024 8:36 AM EDT [facility] pH, Urine 6.0 5.0 - 8.0 07/31/2024 8:36 AM EDT [facility] Protein, Urine Negative Trace, Negative 07/31/2024 8:36 AM EDT [facility] Urobilinogen Normal Normal 07/31/2024 8:36 [facility] Nitrites Negative Negative 07/31/2024 8:36 AM EDT [facility] Leuk Esterase Negative Negative, 25 Felisha/uL 07/31/2024 8:36 AM EDT [facility] WBC, Urine 0-5 /HPF 0-5 /HPF 07/31/2024 8:36 AM EDT [facility] RBC, Urine 0-3 /HPF 0-3 /HPF 07/31/2024 8:36 AM EDT [facility] Urine URINE SPECIMEN / Unknown Non Blood / Unknown 07/31/2024 8:23 AM EDT 07/31/2024 8:27 AM EDT Ryder Lorenzana MD LABORATORY Final Re sult [facility] [address] [place] [address], * (ABNORMAL) TOXICOLOGY SCREEN, ROUTINE URINE (07/31/2024 8:23 AM EDT) Phencyclidine , Urine Negative Negative 07/31/2024 9:01 AM EDT [facility] Comment:Cutoff threshold at 25 ng/mL. Benzodiazepin es, Urine Preliminary positive(A) Negative 07/31/2024 9:01 AM EDT [facility] Comment:Cutoff threshold at 200 ng/mL. Cocaine, Urine Negative Negative 07/31/2024 9:01 AM EDT [facility] Comment:Cutoff threshold at 300 ng/mL. Amphetamines, Urine Negative Negative 07/31/2024 9:01 AM EDT [facility] Comment:Cutoff threshold at 1000 ng/mL. Cannabinoids, Urine Negative Negative 07/31/2024 9:01 AM EDT [facility] Comment:Cutoff threshold at 50 ng/mL. Opiates, Urine Negative Negative 07/31/2024 9:01 AM EDT [facility] Comment:Cutoff threshold at 300 ng/mL. Barbiturates, Urine Negative Negative 07/31/2024 9:01 AM EDT [facility] Comment:Cutoff threshold at 200 ng/mL. Ethanol, Urine 13(H) <11 mg/dL 07/31/2024 9:01 AM [facility] Oxycodone, Urine Negative Negative 07/31/2024 9:01 AM [facility] Comment:Cutoff threshold at 100 ng/mL. Urine URINE SPECIMEN / Unknown Non Blood / Unknown 07/31/2024 8:23 AM EDT 07/31/2024 8:27 AM EDT Narrative [facility] - 07/31/2024 9:01 AM EDT Immunoassay [...] on the same specimen through Client Services ([phone]) if contacted within 48 hours of initial testing. [1]Substance Abuse and Mental Health Services Administration (2012). Clinical Drug Testing in Primary Care Technical Assistance Publication Series 32. Department of Health and Human Services, [place], p.10. us Ryder Lorenzana MD LABORATORY Final Re sult [facility] [address] [place] [address], * XR HUMERUS 2V AP/LAT RIGHT (07/31/2024 7:42 AM EDT) Anatomical Region Laterality Modality Humerus Radiographic Adriana ging 07/31/2024 7:42 AM EDT Impressions 07/31/2024 7:59 AM EDT IMPRESSION: No acute osseous abnormality. Trial Management Associate: ANGE Transcribe Date/Time: Jul 31 2024 7:52A [...] No radiopaque foreign body. Procedure Note Provider, [facility] - 07/31/2024 * * *Final Report* * [...] body. IMPRESSION IMPRESSION: No acute osseous abnormality. Trial Management Associate: PSCB Transcribe Date/Time: Jul 31 2024 7:52A Dictated by : RANDOLPH MCCORD DO This examination was interpreted and the report reviewed and electronically signed by: RANDOLPH MCCORD DO on Jul 31 2024 7:57AM EST Ryder Lorenzana MD RAD-PAMA Final Re sult * XR FOREARM GENERAL 2V AP/LAT RIGHT (07/31/2024 7:42 AM EDT) Anatomical Region Laterality Modality Forearm Radiographic Adriana ging 07/31/2024 7:42 AM EDT Impressions 07/31/2024 7:59 AM EDT IMPRESSION: No acute osseous abnormality. Trial Management Associate: [facility] Transcribe Date/Time: Jul 31 2024 7:52A Dictated [...] No radiopaque foreign body. Procedure Note Provider, [facility] - 07/31/2024 * * *Final Report* * [...] body. IMPRESSION IMPRESSION: No acute osseous abnormality. Trial Management Associate: ANGE Transcribe Date/Time: Jul 31 2024 7:52A Dictated by : RANDOLPH MCCORD DO This examination was interpreted and the report reviewed and electronically signed by: RANDOLPH MCCORD DO on Jul 31 2024 7:57AM EST us Ryder Lorenzana MD RAD-PAMA Final Re sult * XR ELBOW GENERAL 2V AP/LAT RIGHT (07/31/2024 7:42 AM EDT) Anatomical Region Laterality Modality Elbow Radiographic Adriana ging 07/31/2024 7:42 AM EDT Impressions 07/31/2024 7:59 AM EDT IMPRESSION: No acute osseous abnormality. Trial Management Associate: ANGE Transcribe Date/Time: Jul 31 2024 7:52A [...] No radiopaque foreign body. Procedure Note Provider, [facility] - 07/31/2024 * * *Final Report* * [...] body. IMPRESSION IMPRESSION: No acute osseous abnormality. Trial Management Associate: PSCB Transcribe Date/Time: Jul 31 2024 7:52A Dictated by : RANDOLPH MCCORD DO This examination was interpreted and the report reviewed and electronically signed by: RANDOLPH MCCORD DO on Jul 31 2024 7:57AM EST us Ryder Lorenzana MD RAD-PAMA Final Re sult * PROTHROMBIN TIME (07/31/2024 7:00 AM EDT) PT Sec 11.7 9.7 - 13.0 sec 07/31/2024 7:35 AM EDT [facility] INR 1.0 0.9 - 1.3 07/31/2024 7:35 AM EDT [facility] Comment: Vitamin K Antagonist (VKA) Therapeutic Range: INR 2 to 3 (Target INR of 2.5) Note: For patients treated with VKA drugs, such as warfarin, the [place] [employer] 2012 Guideline recommends [...] GH, et al. Chest 2012, 141:7S-47S Robby HOWARD et al. [facility] 2017, 70: 252-289 Blood BLOOD SPECIMEN / Unknown Venipuncture / Unknown 07/31/2024 7:00 AM EDT 07/31/2024 7:06 AM EDT Ryder Lorenzana MD LABORATORY Final Re sult Performing Organization Address [facility] Co de Phone Number [facility] [address] [place] [address], * LIPASE (07/31/2024 7:00 AM EDT) Lipase 29 16 - 61 U/L 07/31/2024 7:32 AM EDT [facility] Blood BLOOD SPECIMEN / Unknown Venipuncture / Unknown 07/31/2024 7:00 AM EDT 07/31/2024 7:06 AM EDT Ryder Lorenzana MD LABORATORY Final Re sult Performing Organization Address [facility] Co de Phone Number [facility] [address] [place] [address], * ETHANOL/ALCOHOL (07/31/2024 7:00 AM EDT) Ethanol <11 <11 mg/dL 07/31/2024 7:25 AM EDT [facility] Blood BLOOD SPECIMEN / Unknown Venipuncture / Unknown 07/31/2024 7:00 AM EDT 07/31/2024 7:06 AM EDT Ryder Lorenzana MD LABORATORY Final Re sult Performing Organization Address [facility]/ZIP Co de Phone Number [facility] [address] [place] [address], [place] * ACTIVATED PARTIAL THROMBOPLASTIN TIME (07/31/2024 7:00 AM EDT) APTT 27.8 23.0 - 32.4 sec 07/31/2024 7:35 AM EDT [facility] Blood BLOOD SPECIMEN / Unknown Venipuncture / Unknown 07/31/2024 7:00 AM EDT 07/31/2024 7:06 AM EDT Narrative [facility] - 07/31/2024 7:35 AM EDT Unfractionated [...] laboratory APTT reagent in use throughout the [facility]. Ryder Lorenzana MD LABORATORY Final Re sult Performing Organization Address [facility]/ZIP Co de Phone Number [facility] [address] [id number], [place] * TYPE + SCREEN (07/31/2024 7:00 AM EDT) ABO A 07/31/2024 7:55 AM EDT [facility] Rh(D) Positive 07/31/2024 7:55 AM EDT [facility] Antibody Screen Negative 07/31/2024 7:55 AM EDT [facility] Type and Screen Expiration 08/03/2024 23:59 07/31/2024 7:55 AM EDT [facility] Blood BLOOD SPECIMEN / Unknown Venipuncture / Unknown 07/31/2024 7:00 AM EDT 07/31/2024 7:06 AM EDT Ryder Lorenzana MD BLOOD BANK Final Re sult [facility] [address] [id number], [place] * XR PELVIS 1V AP (07/31/2024 6:56 AM EDT) Anatomical Region Laterality Modality Pelvis Radiographic Adriana ging 07/31/2024 6:56 AM EDT Impressions 07/31/2024 7:05 AM EDT IMPRESSION: * No acute chest process. * No acute osseous abnormality of the pelvis. * Endotracheal tube terminates within the mid thoracic trachea. Trial Management Associate: PSCB Transcribe Date/Time: Jul 31 2024 7:00A [...] FRONTAL PORT CLINICAL HISTORY: Pelvic trauma (accession [id number]), Chest pain, nonspecific, Polytrauma, blunt, Chest trauma (accession [id number]) Technique: XR PELVIS 1V AP, XR CHEST [...] identified. Pelvic surgical clips. Procedure Note Provider, [facility] - 07/31/2024 * * *Final Report* * * DATE OF EXAM: Jul 31 2024 6:56AM [facility] [id number] - XR PELVIS 1V AP / PROCEDURE REASON: Pelvic trauma * * * * Physician Interpretation * * * * EXAMINATION: XR PELVIS 1V AP, XR CHEST 1V FRONTAL PORT CLINICAL HISTORY: Pelvic trauma (accession [id number]), Chest pain, nonspecific, Polytrauma, blunt, Chest trauma (accession [id number]) Technique: XR PELVIS 1V AP, XR CHEST [...] tube terminates within the mid thoracic trachea. Trial Management Associate: [facility] Transcribe Date/Time: Jul 31 2024 7:00A Dictated by : LEEROY ROQUE MD This examination was interpreted and the report reviewed and electronically signed by: LEEROY ROQUE MD on Jul 31 2024 7:03AM EST Ryder Lorenzana MD RAD-[facility]AMA Final Re sult * XR CHEST 1V FRONTAL PORT (07/31/2024 6:56 AM EDT) Anatomical Region Laterality Modality Chest Radiographic Adriana ging 07/31/2024 6:56 AM EDT Impressions 07/31/2024 7:05 AM EDT IMPRESSION: * No acute chest process. * No acute osseous abnormality of the pelvis. * Endotracheal tube terminates within the mid thoracic trachea. Trial Management Associate: [facility] Transcribe Date/Time: Jul 31 2024 7:00A Dictated [...] FRONTAL PORT CLINICAL HISTORY: Pelvic trauma (accession [id number]), Chest pain, nonspecific, Polytrauma, blunt, Chest trauma (accession [id number]) Technique: XR PELVIS 1V AP, XR CHEST [...] identified. Pelvic surgical clips. Procedure Note Provider, [facility] - 07/31/2024 * * *Final Report* * * DATE OF EXAM: Jul 31 2024 6:56AM [facility] 5376 - XR CHEST 1V FRONTAL PORT / PROCEDURE REASON: Chest pain, nonspecific * * * * Physician Interpretation * * * * EXAMINATION: XR PELVIS 1V AP, XR CHEST 1V FRONTAL PORT CLINICAL HISTORY: Pelvic trauma (accession [id number]), Chest pain, nonspecific, Polytrauma, blunt, Chest trauma (accession [id number]) Technique: XR PELVIS 1V AP, XR CHEST [...] tube terminates within the mid thoracic trachea. Trial Management Associate: PSC[facility] Transcribe Date/Time: Jul 31 2024 7:00A Dictated by : LEEROY ROQUE MD This examination was interpreted and the report reviewed and electronically signed by: LEEROY ROQUE MD on Jul 31 2024 7:03AM EST Ryder Lorenzana MD RAD-[facility] Final Re sult * CR-XR chest 1V portable IMPORT (07/31/2024) Anatomical Region Laterality Modality Other 07/31/2024 Narrative 07/31/2024 4:10 AM EDT Images were obtained outside of [facility] Procedure Note Provider, [facility] - 07/31/2024 Images were obtained outside of [facility] Provider RADIOLOGY Final Result * CT-CT angio head IMPORT (07/31/2024) Anatomical Region Laterality Modality Other 07/31/2024 Narrative 07/31/2024 4:11 AM EDT Images were obtained outside of [facility] Procedure Note Provider, [facility] - 07/31/2024 Images were obtained outside of [facility] Provider RADIOLOGY Final Result * CT-CT angio neck IMPORT (07/31/2024) Anatomical Region Laterality Modality Other 07/31/2024 Narrative 07/31/2024 4:11 AM EDT Images were obtained outside of [facility] Procedure Note Provider, [facility] - 07/31/2024 Images were obtained outside of [facility] Provider RADIOLOGY Final Result * CT-CT head stroke alert wo con IMPORT (07/31/2024) Anatomical Region Laterality Modality Other 07/31/2024 Narrative 07/31/2024 4:10 AM EDT Images were obtained outside of [facility] Procedure Note Provider, [facility] - 07/31/2024 Images were obtained outside of [facility] Provider RADIOLOGY Final Result * EPIL EEG BEDSIDE/PORTABLE - 20 MINUTE ONLY W/VIDEO (07/31/2024 12:00 AM EDT) 07/31/2024 Narrative NEUROLOGY - 07/31/2024 6:13 PM EDT [facility], Ep[facility]psy [facility] EPIL EEG Bedside/Portable - 20 minute only w/video [[id number]] Patient name: SARAY CORBIN Start of test: 07/31/2024 16:36 End of test: 07/31/2024 16:59 Duration: 0 hr 23 min Requested By: AMADEO ANAYA Staff Physician: Cheikh Kuo EEG Fellow or [place]: Heavenly Cruz History: 63 year old male [...] M.D. Date of signin07/31/2024 18:13 Amadeo Anaya APRN.[employer] NEUROLOGY Final Result NEUROLOGY [address] [place] [address], * EPIL EEG BEM - CONTINUOUS BEDSIDE W/VIDEO INCLUDES PORTABLE EEG READ (07/31/2024 12:00 AM EDT) 07/31/2024 Narrative NEUROLOGY - 08/01/2024 11:42 AM EDT [facility] EPIL EEG BEM - Continuous bedside w/video includes portable EEG read [[id number]] Patient name: SARAY CORBIN Date of test: 07/31/2024 Requested By: AMADEO ANAYA Staff Physician: Anirudh Castellanos M.D. EEG Fellow or [place]: Antonio Garza History: 63 year old male [...] Anirudh Castellanos M.D. Date of signin08/01/2024 11:42 Amadeo Anaya APRN.[facility] NEUROLOGY Final Result Performing Organization Address City/State/[facility] Co de Phone Number NEUROLOGY [address] [place] [address], * SURGICAL PATHOLOGY (06/20/2024 12:23 PM EDT) Case Report Surgical Pathology Report Case: [id number] Authorizing Provider: Nghia Live MD Collected: 06/20/2024 12:23 PM Ordering Location: [facility] Received: 06/20/2024 02:47 PM [facility] Pathologist: Milly Alfaro MD Specimens: A) - Esophagus, Biopsy B) - Colon, Transverse, Polyp C) - Rectum, Polyp 07/02/2024 12:43 PM EDT [facility] AMENDED REPORT DETAIL Amended: 07/02/2024 12:40 PM This report is being amended to reflect a change in the final diagnosis field. The change is as follows: Hyperplastic polyp diagnosis was moved to Part C. Dr. Live was notified of this change by [employer] message on 07-02-2024 at around 1245 pm. 07/02/2024 12:43 PM EDT [facility] Comment:Edited results: Prev iously reported on 06/24/2024 at 1:13 PM EDT. FINAL DIAGNOSIS A. Esophagus, biopsy: - Patchy active esophagitis with organisms consistent with Cayetano species. B. Transverse colon, polypectomy: - Tubular adenoma. C. Rectum, polypectomy: - Hyperplastic polyp. 07/02/2024 12:43 PM EDT [facility] Amendment electronically signed by Milly Alfaro MD on 07/02/2024 at 1243 EDT at 1313 EDT Comment:Corrected results: P reviously reported on 06/24/2024 at 1:13 PM EDT. Gross Description A. Esophagus, Biopsy Received in formalin are multiple pieces of samaniego-white, soft tissue aggregating to 1.9 x 0.5 x 0.2 cm. Totally submitted in two cassettes. B. Colon, Transverse, Polyp Received in formalin are two pieces of samaniego-white and pink, soft tissue aggregating to 1.5 x 0.4 x 0.1 cm. Totally submitted in one cassette. C. Rectum, Polyp Received in formalin is one piece of samaniego, soft tissue measuring 0.3 x 0.3 x 0.2 cm. Totally submitted in one cassette. AJB June 20, 2024 6:21 PM Gross examination performed at [facility], [address] [place] [address] 07/02/2024 12:43 PM EDT [facility] Clinical History A) R/O CAYETANO B-C) R/O ADENOMA 07/02/2024 12:43 PM EDT [facility] Performing Lab Diagnostic interpretation performed at: [facility], [address] [address] CLIA# [id number] Rehabilitation Teacher: Stacie Tinoco MD 07/02/2024 12:43 PM EDT [facility] Disclaimer Laboratory Developed Test (LDT) Disclaimer: Performance characteristics of immunohistochemica l, immunofluorescent, and chromogenic in-situ hybridization tests have been determined by the performing laboratory within [facility]'s Jonas Valentine Pathology and Laboratory Medicine Department ([facility], [facility], [facility], [facility], [facility], [facility], or [facility]) in a manner consistent with CLIA requirements. One or more of these tests may not have been cleared or approved by the FDA. [facility] is regulated under CLIA as qualified to perform high-complexity testing. These tests are used for clinical purposes. These should not be regarded as investigational or for research. Positive and negative controls stain appropriately. 07/02/2024 12:43 PM EDT [facility] Tissue SPECIMEN FROM ESOPHAGUS OBTAINED BY INCISIONAL BIOPSY / Unknown 06/20/2024 12:23 PM EDT 06/20/2024 2:47 PM EDT Tissue specimen (specimen) POLYP OF TRANSVERSE COLON / Unknown 06/20/2024 12:41 PM EDT 06/20/2024 2:47 PM EDT Tissue specimen (specimen) RECTAL POLYP / Unknown 06/20/2024 12:44 PM EDT 06/20/2024 2:47 PM EDT Nghia Live MD SURGICAL PATHOLOGY Edited Re sult - Final [facility] [address] [place] [address], [facility] [address] [place] [address], [facility] [address] [place] [address], * EGD DIAGNOSTIC (06/20/2024 11:58 AM EDT) Anatomical Region Laterality Modality Other 06/20/2024 11:5 8 AM EDT Narrative 06/20/2024 12:[address] [facility] Gastrointestinal Endoscopy Patient Name: Saray Corbin Procedure Date: 06/20/2024 11:58 AM Date of : 1960 Admit Type: Outpatient Age: 63 Room: [place] [address] Gender: Male Note Status: Finalized Attending MD: Nghia Live MD, [id number] Procedure: Upper GI endoscopy Indications: Dysphagia Providers: Nghia Live MD Patient Profile: This is a 63 year old male. Refer to note in patient chart for documentation of history and physical. Referring Physician: Padmini Scherer CNP (Referring PACKAGING INSPECTOR) Medicines: Propofol per Anesthesia Complications: No immediate complications. Requesting Provider: Procedure: Pre-Anesthesia Assessment: - Prior to the procedure, a History and Physical was performed, and patient medications and allergies were reviewed. The patient is competent. The risks and benefits of the procedure and the sedation options and risks were discussed with the patient. All questions were answered and informed consent was obtained. Patient identification and proposed procedure were verified by the physician in the procedure room. Mental Status Examination: alert and oriented. Airway Examination: normal oropharyngeal airway and neck mobility. Respiratory Examination: clear to auscultation. CV Examination: normal. Prophylactic Antibiotics: The patient does not require prophylactic antibiotics. Prior Anticoagulants: The patient has taken no anticoagulant or antiplatelet agents. ASA Grade Assessment: III - A patient with severe systemic disease. After reviewing the risks and benefits, the patient was deemed in satisfactory condition to undergo the procedure. The anesthesia plan was to use monitored anesthesia care (MAC). Immediately prior to administration of medications, the patient was re-assessed for adequacy to receive sedatives. The heart rate, respiratory rate, oxygen saturations, blood pressure, adequacy of pulmonary ventilation, and response to care were monitored throughout the procedure. The physical status of the patient was re-assessed after the procedure. After obtaining informed consent, the endoscope was passed under direct vision. Throughout the procedure, the patient's blood pressure, pulse, and oxygen saturations were monitored continuously. The Endoscope was introduced through the mouth, and advanced to the second part of duodenum. The upper GI endoscopy was accomplished without difficulty. The patient tolerated the procedure well. Moderate Sedation: MAC anesthesia was administered by the anesthesia team. Total Procedure Duration: 0 hours 7 minutes 31 seconds Findings: Diffuse, white plaques were found in the distal esophagus. Biopsies were taken with a cold forceps for histology. The Z-line was regular. Imaging was performed using zoom magnification, white light and narrow band imaging to visualize the mucosa. The entire examined stomach was normal. The cardia and gastric fundus were normal on retroflexion. The examined duodenum was normal. Impression: - Esophageal plaques were found, suspicious for candidiasis. Biopsied. - Z-line regular. - Normal stomach. - Normal examined duodenum. Recommendation: - Patient has a contact number available for emergencies. The signs and symptoms of potential delayed complications were discussed with the patient. Return to normal activities tomorrow. Written discharge instructions were provided to the patient. - Resume previous diet. - Continue present medications. - Return to nurse practitioner as previously scheduled. - Fluconazole 400mg once then 200mg daily x 13 days Procedure Code(s): --- Professional --- 95380, Esophagogastroduodenoscopy, flexible, transoral; with biopsy, single or multiple CPT copyright 2020 [employer]. All rights reserved. The codes documented in this report are preliminary and upon relief cook review may be revised to meet current compliance requirements. Attending Participation: I personally performed the entire procedure. Scope In: 12:20:39 PM Scope Out: 12:28:10 PM MD Nghia Tran MD 06/20/2024 12:31:28 PM This report has been signed electronically by Nghia Live MD Number of Addenda: 0 Note Initiated On: 06/20/2024 11:58 AM Estimated Blood Loss: Estimated blood loss was minimal. Padmini Scherer APRN.CNP DIGESTIVE DISEASE Final Res ult * COLONOSCOPY DIAGNOSTIC (06/20/2024 11:58 AM EDT) Anatomical Region Laterality Modality Other 06/20/2024 11:5 8 AM EDT Narrative 06/20/2024 12:[address] [facility] Gastrointestinal Endoscopy Patient Name: Saray Corbin Procedure Date: 06/20/2024 11:58 AM Date of : 1960 Admit Type: Outpatient Age: 63 Room: [place] [address] Gender: Male Note Status: Finalized Attending MD: Nghia Live MD, [id number] Procedure: Colonoscopy Indications: Screening for colorectal malignant neoplasm Providers: Nghia Live MD Patient Profile: This is a 63 year old male. Refer to note in patient chart for documentation of history and physical. Last Colonoscopy: date unknown. Unable to locate last colonoscopy report. Referring Physician: Padmini Scherer CNP (Referring MD) Medicines: Monitored Anesthesia Care Complications: No immediate complications. Requesting Provider: Procedure: Pre-Anesthesia Assessment: - Prior to the procedure, a History and Physical was performed, and patient medications and allergies were reviewed. The patient is competent. The risks and benefits of the procedure and the sedation options and risks were discussed with the patient. All questions were answered and informed consent was obtained. Patient identification and proposed procedure were verified by the physician in the pre-procedure area. Mental Status Examination: alert and oriented. Respiratory Examination: clear to auscultation. Prophylactic Antibiotics: The patient does not require prophylactic antibiotics. Prior Anticoagulants: The patient has taken no anticoagulant or antiplatelet agents. ASA Grade Assessment: III - A patient with severe systemic disease. After reviewing the risks and benefits, the patient was deemed in satisfactory condition to undergo the procedure. The anesthesia plan was to use monitored anesthesia care (MAC). Immediately prior to administration of medications, the patient was re-assessed for adequacy to receive sedatives. The heart rate, respiratory rate, oxygen saturations, blood pressure, adequacy of pulmonary ventilation, and response to care were monitored throughout the procedure. The physical status of the patient was re-assessed after the procedure. After I obtained informed consent, the scope was passed under direct vision. Throughout the procedure, the patient's blood pressure, pulse, and oxygen saturations were monitored continuously. The Colonoscope was introduced through the anus and advanced to the cecum, identified by appendiceal orifice and ileocecal valve. The colonoscopy was performed without difficulty. The patient tolerated the procedure well. The quality of the bowel preparation was good. The ileocecal valve, appendiceal orifice, and rectum were photographed. Scope Withdrawal Time: 0 hours 8 minutes 26 seconds Moderate Sedation: MAC anesthesia was administered by the anesthesia team. Total Procedure Duration: 0 hours 12 minutes 5 seconds Findings: The perianal and digital rectal examinations were normal. A 6 mm polyp was found in the transverse colon. The polyp was semi-pedunculated. The polyp was removed with a cold snare. Resection and retrieval were complete. A few small-mouthed diverticula were found in the sigmoid colon. A 2 mm polyp was found in the rectum. The polyp was semi-sessile. The polyp was removed with a cold biopsy forceps. Resection and retrieval were complete. The retroflexed view of the distal rectum and anal verge was normal and showed no anal or rectal abnormalities. Impression: - One 6 mm polyp in the transverse colon, removed with a cold snare. Resected and retrieved. - Diverticulosis in the sigmoid colon. - One 2 mm polyp in the rectum, removed with a cold biopsy forceps. Resected and retrieved. - The distal rectum and anal verge are normal on retroflexion view. Recommendation: - Patient has a contact number available for emergencies. The signs and symptoms of potential delayed complications were discussed with the patient. Return to normal activities tomorrow. Written discharge instructions were provided to the patient. - Resume previous diet. - Continue present medications. - Repeat colonoscopy in 7-10 years for surveillance. - Return to nurse practitioner as previously scheduled. Procedure Code(s): --- Professional --- 16469, Colonoscopy, flexible; with removal of tumor(s), polyp(s), or other lesion(s) by snare technique 62746, 59, Colonoscopy, flexible; with biopsy, single or multiple CPT copyright 2020 [employer]. All rights reserved. The codes documented in this report are preliminary and upon relief cook review may be revised to meet current compliance requirements. Attending Participation: I personally performed the entire procedure. Scope In: 12:33:40 PM Scope Out: 12:45:45 PM MD Nghia Tran MD 06/20/2024 12:49:55 PM This report has been signed electronically by Nghia Live MD Number of Addenda: 0 Note Initiated On: 06/20/2024 11:58 AM Estimated Blood Loss: Estimated blood loss was minimal. us Padmini Pack LEAD TEACHER.PRESSER MACHINE DIGESTIVE DISEASE Final Res ult * (ABNORMAL) COMPLETE BLOOD COUNT AND DIFFERENTIAL (06/10/2024 11:07 AM EDT) WBC 9.33 3.70 - 11.00 k/uL 06/10/2024 11:11 AM EDT [facility] RBC 3.41(L) 4.20 - 6.00 m/uL 06/10/2024 11:11 AM EDT [facility] Hemoglobin 9.1(L) 13.0 - 17.0 g/dL 06/10/2024 11:11 AM EDT [facility] Hematocrit 28.8(L) 39.0 - 51.0 % 06/10/2024 11:11 AM EDT [facility] MCV 84.5 80.0 - 100.0 fL 06/10/2024 11:11 AM EDT [facility] MCH 26.7 26.0 - 34.0 pg 06/10/2024 11:11 AM EDT [facility] MCHC 31.6 30.5 - 36.0 g/dL 06/10/2024 11:11 AM EDT [facility] RDW-CV 17.8(H) 11.5 - 15.0 % 06/10/2024 11:11 AM EDT [facility] Platelet Count 401(H) 150 - 400 k/uL 06/10/2024 11:11 AM EDT [facility] MPV 8.5(L) 9.0 - 12.7 fL 06/10/2024 11:11 AM EDT [facility] Neutrophils % 70.6 % 06/10/2024 11:11 AM EDT [facility] Abs Neut 6.58 1.45 - 7.50 k/uL 06/10/2024 11:11 AM EDT [facility] Lymphocytes % 19.2 % 06/10/2024 11:11 AM EDT [facility] Abs Lymph 1.79 1.00 - 4.00 k/uL 06/10/2024 11:11 AM EDT [facility] Monocytes % 9.1 % 06/10/2024 11:11 AM EDT [facility] Abs Fergus 0.85 <0.87 k/uL 06/10/2024 11:11 AM EDT [facility] Eosinophils % 0.6 % 06/10/2024 11:11 AM EDT [facility] Abs Eosin 0.06 <0.46 k/uL 06/10/2024 11:11 AM EDT [facility] Basophils % 0.2 % 06/10/2024 11:11 AM EDT [facility] Abs Baso <0.03 <0.11 k/uL 06/10/2024 11:11 AM EDT [facility] Immature Granulocytes % 0.3 % 06/10/2024 11:11 AM EDT [facility] Abs Immature Gran 0.03 <0.10 k/uL 06/10/2024 11:11 AM EDT [facility] NRBC 0.0 /100 WBC 06/10/2024 11:11 AM EDT [facility] Absolute nRBC <0.01 <0.01 k/uL 06/10/2024 11:11 AM EDT [facility] Diff Type Auto 06/10/2024 11:11 AM EDT [facility] Blood BLOOD SPECIMEN / Unknown Venipuncture / Unknown 06/10/2024 11:07 AM EDT 06/10/2024 11:07 AM EDT us Selena Novoa LEAD TEACHER.PRESSER MACHINE LABORATORY Final Re sult Performing Organization Address City/[facility]/ZIP Co de Phone Number [facility] [address] [place] [address] * HGB A1C (06/03/2022 6:55 AM EDT) Hemoglobin A1C 5.1 4.3 - 5.6 % 06/03/2022 6:27 PM EDT [facility] Comment:[employer] Diabetes As sociation guidelines indicate that patients with HgbA1c in the range 5.7-6.4% are at increased risk for development of diabetes, and intervention by lifestyle modification may be beneficial. HgbA1c greater or equal to 6.5% is considered diagnostic of diabetes. Estimated Average Glucose 100 mg/dL 06/03/2022 6:27 PM EDT [facility] Comment:eAG: (Estimated aver age glucose) is a calculated value from HgbA1c and is media sales representative of the average blood glucose level in the last 2-3 month period. Blood BLOOD SPECIMEN / Unknown Venipuncture / Unknown 06/03/2022 6:55 AM EDT 06/03/2022 8:31 AM EDT us Amelia Bauer DO LABORATORY Final Result [facility] [address] [place] [address], * (ABNORMAL) LIPID PANEL, NONFASTING (05/01/2022 6:56 AM EST) Total Cholesterol, Nonfasting 138 <200 mg/dL 05/01/2022 4:48 PM [facility] Comment: <200 mg/dL, Desirable 200-239 mg/dL, Borderline high >239 mg/dL, High Triglycerides, Nonfasting 267(H) <150 mg/dL 05/01/2022 4:48 PM [facility] Comment: <150 mg/dL, Normal 150-199 mg/dL, Borderline high 200-499 mg/dL, High >499 mg/dL, Very high HDL Cholesterol, Nonfasting 30(L) >39 mg/dL 05/01/2022 4:48 PM [facility] Comment: 40-59 mg/dL, Acceptable >59 mg/dL, High: Negative risk factor for coronary heart disease <40 mg/dL, Low: Positive risk factor for coronary heart disease LDL Cholesterol Calculated, Nonfasting 55 <100 mg/dL 05/01/2022 4:48 PM [facility] Comment: <100 mg/dL, Optimal 100-129 mg/dL, Near optimal/above optimal 130-159 mg/dL, Borderline high 160-189 mg/dL, High >189 mg/dL, Very high Secondary prevention optimal LDL Cholesterol levels are recommended to be < 70 mg/dL Non HDL Cholesterol, Nonfasting 108 <130 mg/dL 05/01/2022 4:48 PM [facility] Comment: <130 mg/dL, Optimal 130-159 mg/dL, Near optimal/above optimal 160-189 mg/dL, Borderline high 190-219 mg/dL, High >219 mg/dL, Very high Secondary prevention optimal non HDL Cholesterol levels are recommended to be <100 mg/dL VLDL Cholesterol, Nonfasting 53(H) <30 mg/dL 05/01/2022 4:48 PM [facility] Total Chol/HDL Ratio, Nonfasting 4.60 <5.10 mg/dL 05/01/2022 4:48 PM [facility] LDL/HDL Ratio, Nonfasting 1.83 <2.54 mg/dL 05/01/2022 4:48 PM EST [facility] Comment: Reference: 1. National Cholesterol Education Program ATP III Guideline At-A-Glance Quick Desk Reference: National Heart, Lung, and Blood [place]. National Institutes of Health. 2001: NIH Publication No. 01-3305. 2. An International Atherosclerosis Society position paper: global recommendations for the management of dyslipidemia: executive summary, Atherosclerosis. 2014: 232(2):410-413. Blood BLOOD SPECIMEN / Unknown Venipuncture / Unknown 05/01/2022 6:56 AM EST 05/01/2022 7:00 AM EST us Dean Gonzales MD LABORATORY Fi nal Result [facility] [address] [facility] [address] [place] [address], from Last 3 Months or Most Recently Relevant to Health Maintenance Insurance [employer] PA[employer]OR [employer] PA[employer]OR [employer] PA[employer]OR [employer] PA[employer]OR Advance Directives * Full Code (Latest Code Status on File) Date Activated Date Inactivated Comments 07/31/2024 11:15 AM 08/15/2024 6:53 PM Question Answer Comments Full Code Order Discussed With: Surrogate Decisi on Maker * Full Code Date Activated Date Inactivated Comments 04/27/2022 5:06 AM 05/19/2022 8:00 PM Question Answer Comments Full Code Order Discussed With: Patient Care Teams Wilton Weaver Relationship Specialty Start Date End Date Papi Oswaldo Ishan [address] [place] [address] PCP - General Family Medicine 04/11/[address] [facility] [address] [place] [address] General Surgery 01/05/22 Dione Montoya DO [address] [facility] [address] [place] [address] Referring Gastroenterology 09/30/23
--- OUTSIDE RECORDS SUMMARY | 2024-08-28 12:36 | XMS_ITS | Encounter Summary ---
Author Organization [facility] Address [address] [place] [address] Care Team Providers Care Sterile Process Tech Name Role Phone Oswaldo Turpin Unavailable [phone] Enoch Aguirre Unavailable [phone] Oswaldo Turpin Primary Care Provider [phone] LindsayDione Unavailable Source Comments In the event this information is protected by the Federal Confidentiality of Alcohol and Drug AbusePatient Records regulations: The Federal rules restrict any use of the information to criminally investigate or prosecute any alcohol or drug abuse patient.[facility] Encounter Details Date Type Department Care Team (Late st Contact Info) Description 01/19/2022 [place] [address] Provider, [facility] MRI Screening Questionnaire Completion Required Social History Tobacco Use Types Packs/Day Years Used Date Smoking Tobacco: Every Day Cigarettes Smokeless Tobacco: Never Alcohol Use Standard Drinks/Week Comments Yes 0 (1 standard drink = 0.6 oz pur e alcohol) PHQ-2 Answer Date Recorded PHQ-2 score 5 05/16/2021 Sex and Gender Information Value Date Recorded Sex Assigned at Male 03/30/2021 7:16 AM EST Legal Sex Male 1:02 PM EDT Gender Identity Male 03/30/2021 7:16 AM EST Sexual Orientation Straight 03/30/2021 7 :16 AM EST COVID-19 Exposure Response Date Recorded In the last 10 days, have yo u been in contact with someone who was confirmed or suspected to have Coronavirus/COVID-19? No / Unsure 12/31/2021 1:07 PM EDT documented as of this encounter Plan [...] documented as of this encounter Care Teams Sterile Process Tech Relationship Specialty Start Date End Date Oswaldo Turpin [address] [place] [address] PCP - General Family Medicine 04/11/22 Oswaldo Turpin [address] [place] [address] Referring Family Medicine 10/01/20 04/10/22 Enoch Aguirre [address] [facility] [address] [place] [id number] General Surgery 01/05/22 Dione Montoya DO [address] [place] [address] [address] [place] [address] Referring Gastroenterology 09/30/23 documented as of this encounter
--- OUTSIDE RECORDS SUMMARY | 2024-08-28 12:36 | XMS_ITS | Encounter Summary ---
Author Organization [facility] Address [address] [place] [address] Phone Care Team Providers Care Policy Change Clerks Supervisor Name Role Phone Oswaldo Turpin DO Primary Care Provider [phone] Oswaldo Turpin DO Primary Care Provider [phone] Encounter Details Date Type Department Care Team (Late st Contact Info) Description 12/13/2023 Scanned Document [facility] [address] [place] [phone] Scanning, Generic Provider Social History Tobacco Use Types Packs/Day Years Used Date Smoking Tobacco: Every Day Cigarettes Alcohol Use Standard Drinks/Week Comments Yes 0 (1 standard drink = 0.6 oz pur e alcohol) social Sex and Gender Information Value Date Recorded Sex Assigned at Not on file Legal Sex Male 2:39 PM EST Gender Identity Not on file Sexual Orientation Not on file COVID-19 Exposure Response Date Recorded In the last 10 days, have yo u been in contact with someone who was confirmed or suspected to have Coronavirus/COVID-19? No / Unsure 11/20/2023 9:59 AM EDT documented as of this encounter Plan of Treatment Upcoming Encounters Date Type Department Care Team (Late st Contact Info) Description 09/16/2024 2:30 PM EDT Appointment [address] [phone] 09/16/2024 3:00 PM EDT Appointment [address] [phone] 09/23/2024 9:30 AM EDT Office Visit [address] [place] [phone] Deepika Dawn, TAILOR WOMEN'S GARMENT ALTERATION-CAR CHANGER [address] [facility] [address], [facility] [address] [place] [address] documented as of this encounter Visit Diagnoses Not on filedocumented in this encounter Care Teams Policy Change Clerks Supervisor Relationship Specialty Start Date End Date Oswaldo Turpin DO PCP - General 01/30/19 03/27/24 Oswaldo Turpin DO [address] [place] [address] PCP - General Family Medicine 03/28/24 documented as of this encounter
--- OUTSIDE RECORDS SUMMARY | 2024-08-28 12:36 | XMS_ITS | Encounter Summary ---
Author Organization [facility] Address [address] [place] [address] Phone Care Team Providers Care Form Raiser Name Role Phone Oswaldo Turpin DO Primary Care Provider [phone] Dione Talavera RN Unavailable Unavailable Dione Talavera RN Unavailable Unavailable Oswaldo Turpin DO Primary Care Provider [phone] Encounter Details Date Type Department Care Team (Late st Contact Info) Description 10/17/2023 Scanned Document [facility] [address] [place] [phone] Scanning, Generic Provider Social History Tobacco Use Types Packs/Day Years Used Date Smoking Tobacco: Never Assessed Sex and Gender Information Value Date Recorded Sex Assigned at Not on file Legal Sex Male 2:39 PM EST Gender Identity Not on file Sexual Orientation Not on file documented as of this encounter Plan of Treatment Upcoming Encounters Date Type Department Care Team (Late st Contact Info) Description 09/16/2024 2:30 PM EDT Appointment [address] [phone] 09/16/2024 3:00 PM EDT Appointment [address] [place] [phone] 09/23/2024 9:30 AM EDT Office Visit [address] [phone] Deepika Dawn, GARNETT MACHINE OPERATOR HELPER-PORT ENGINEER [address] [facility] [address] [place], [place] [phone] documented as of this encounter Visit Diagnoses Not on filedocumented in this encounter Care Teams Form Raiser Relationship Specialty Start Date End Date Oswaldo Turpin DO PCP - General 01/30/19 03/27/24 Oswaldo Turpin DO [address] [place] [address] PCP - General Family Medicine 03/28/24 Dione Talavera, child advocateCoal Cutter 10/02/23 10/17/23 Dione Talavera, child advocateCoal Cutter 10/24/23 11/23/23 documented as of this encounter
--- OUTSIDE RECORDS SUMMARY | 2024-08-28 12:36 | XMS_ITS | Encounter Summary ---
Author Organization [facility] Address [address] [place] [address] Care Team Providers Care Director Of Quantitative Research Name Role Phone Enoch Aguirre Unavailable [phone] Oswaldo Turpin Primary Care Provider [phone] Dione Montoya DO Unavailable Source Comments In the event this information is protected by the Federal Confidentiality of Alcohol and Drug AbusePatient Records regulations: The Federal rules restrict any use of the information to criminally investigate or prosecute any alcohol or drug abuse patient.[facility] Encounter Details Date Type Department Care Team (Late st Contact Info) Description 05/04/2022 [place] [address] Provider, Ccf MRI Screening Questionnaire Completion Required [...] N ot on file 03/23/2022 Data from: https://www.neighborhoodatlas.medicine.[facility].edu/. Last address used for calculation [address] [...] Date Last Indicated Resolved Time COVID-19 Rule-Out 05/05/2022 05/05/2022 05/05/2022 2:55 PM EST Respiratory Rule-Out 05/05/2022 05/05/2022 023 2:55 PM EST C. difficile Comment:Will reevaluate isolation precautions 14 days post-positive test 05/17/2022 05/17/2022 06/16/2022 8:51 PM E DT documented as of this encounter Care Teams Director Of Quantitative Research Relationship Specialty Start Date End Date Oswaldo Turpin [address] [place] [address] PCP - General Family Medicine 04/11/[address] [facility] [address] [place] [phone] General Surgery 01/05/22 Dione Montoya DO [address] [facility] [address] [place] [address] Referring Gastroenterology 09/30/23 documented as of this encounter
--- OUTSIDE RECORDS SUMMARY | 2024-08-28 12:36 | XMS_ITS | Encounter Summary ---
Author Organization [facility] Address [address] [place] [address] Care Team Providers Care Revolving Inventory Clerk Name Role Phone Oswaldo Turpin Unavailable [phone] Enoch Aguirre Unavailable [phone] Oswaldo Turpin Primary Care Provider LindsayDione Unavailable Source Comments In the event this information is protected by the Federal Confidentiality of Alcohol and Drug AbusePatient Records regulations: The Federal rules restrict any use of the information to criminally investigate or prosecute any alcohol or drug abuse patient.[facility] Encounter Details Date Type Department Care Team (Late st Contact Info) Description 08/09/2021 Patient Msg Neurology [address] [phone] Yolanda Mcgill PSS Cancellation of upcoming appointment Social History Tobacco Use Types Packs/Day Years [...] documented as of this encounter Care Teams Revolving Inventory Clerk Relationship Specialty Start Date End Date Oswaldo Turpin [address] [place] [address] PCP - General Family Medicine 04/11/22 Oswaldo Turpin [address] [place] [address] Referring Family Medicine 10/01/20 04/10/22 Enoch Aguirre [address] [place] [address] General Surgery 01/05/22 Dione Montoya DO [address] [place], [place] [phone] Referring Gastroenterology 09/30/23 documented as of this encounter
--- OUTSIDE RECORDS SUMMARY | 2024-08-28 12:36 | XMS_ITS | Encounter Summary ---
Author Organization [facility] Address [address] [place] [address] Phone Care Team Providers Care Fast Food Services Manager Name Role Phone Oswaldo Turpin DO Primary Care Provider [phone] Dione Talavera RN Unavailable Unavailable Dione Talavera RN Unavailable Unavailable Oswaldo Turpin DO Primary Care Provider [phone] Encounter Details Date Type Department Care Team (Late st Contact Info) Description 10/16/2023 Scanned Document [facility] [address] [place] [phone] Scanning, Generic Provider Social History Tobacco Use [...] Info) Description 09/16/2024 2:30 PM EDT Appointment [address] [phone] 09/16/2024 3:00 PM EDT Appointment [address] [place] [phone] 09/23/2024 9:30 AM EDT Office Visit [address] [phone] Deepika Dawn, GUEST SERVICES OFFICER-LINOLEUM FLOOR INSTALLER [address] [facility] [address] [place], [place] [phone] documented as of this encounter Procedures Procedure Name Priority Date/Time Associated Diagnosis Comments OUTSIDE IMAGING SCAN 10/16/2023 documented in this encounter Results * OUTSIDE IMAGING SCAN (10/16/2023) Anatomical Region Laterality Modality Other Narrative 10/16/2023 Ordered by an unspecified provider. us Generic Provider Scanning OUTSIDE SCAN Final Result documented in this encounter Visit Diagnoses Not on filedocumented in this encounter Care Teams Fast Food Services Manager Relationship Specialty Start Date End Date Oswaldo Turpin DO PCP - General 01/30/19 03/27/24 Oswaldo Turpin DO [address] [place] [address] PCP - General Family Medicine 03/28/24 Dione Talavera, drain tile machine operatorParliamentary Archivist 10/02/23 10/17/23 Dione Talavera RN Care Parliamentary Archivist 10/24/23 11/23/23 documented as of this encounter
--- OUTSIDE RECORDS SUMMARY | 2024-08-28 12:36 | XMS_ITS | Encounter Summary ---
Author Organization [facility] Address [address] [place] [address] Phone Care Team Providers Care Space Scheduler Name Role Phone Oswaldo Turpin DO Primary Care Provider [phone] Dione Talavera RN Unavailable Unavailable Oswaldo Turpin DO Primary Care Provider [phone] Encounter Details Date Type Department Care Team (Late st Contact Info) Description 10/23/[address] [facility] [address] [place] [phone] Scanning, Generic Provider Social History Tobacco Use [...] Info) Description 09/16/2024 2:30 PM EDT Appointment [address] [phone] 09/16/2024 3:00 PM EDT Appointment [address] [place] [phone] 09/23/2024 9:30 AM EDT Office Visit [address] [place] [phone] Deepika Dawn, HVAC DESIGNER-COUNSEL [address] [facility] [address] [place] [address] documented as of this encounter Visit Diagnoses Not on filedocumented in this encounter Care Teams Space Scheduler Relationship Specialty Start Date End Date Oswaldo Turpin DO PCP - General 01/30/19 03/27/24 Oswaldo Turpin DO [address] [place] [address] PCP - General Family Medicine 03/28/24 Dione Talavera, corporate accounting managerBoat Laborer 10/24/23 11/23/23 documented as of this encounter
--- OUTSIDE RECORDS SUMMARY | 2024-08-28 12:36 | XMS_ITS | Encounter Summary ---
Author Organization [facility] Address [address] [place] [address] Care Team Providers Care Director Blood Bank Name Role Phone Enoch Aguirre Unavailable [phone] Oswaldo Turpin Primary Care Provider [phone] Dione Montoya DO Unavailable Source Comments In the event this information is protected by the Federal Confidentiality of Alcohol and Drug AbusePatient Records regulations: The Federal rules restrict any use of the information to criminally investigate or prosecute any alcohol or drug abuse patient.[facility] Encounter Details Date Type Department Care Team (Late st Contact Info) Description 06/08/2022 Lab Requisition [facility] [address] [phone] [place] [address] [place], [place] [phone] Social History Tobacco Use Types Packs/Day Years [...] N ot on file 03/23/2022 Data from: https://www.neighborhoodatlas.medicine.[facility]/. Last address used for calculation [address] [...] on file documented as of this encounter Procedures Procedure Name Priority Date/Time Associated Diagnosis Comments BASIC METABOLIC PANEL STAT 06/08/2022 8:45 AM EDT documented in this encounter Results * (ABNORMAL) BASIC METABOLIC PNL (06/08/2022 8:45 AM EDT) Glucose 112(H) 74 - 99 mg/dL 06/08/2022 11:[address] [facility] Comment: The [place] Diabetes Association (ADA) provides guidance for cutoff [...] Standards of Medical Care in Diabetes 2016, [place] [employer] Association. Diabetes Care. 2016.39(Suppl 1). BUN 5(L) 9 - 24 mg/dL 06/08/2022 11:[address] [facility] Creatinine 0.49(L) 0.73 - 1.22 mg/dL 06/08/2022 11:[address] [facility] Sodium 134(L) 136 - 144 mmol/L 06/08/2022 11:[address] [facility] Potassium 3.7 3.7 - 5.1 mmol/L 06/08/2022 11:[address] [facility] Chloride 96(L) 97 - 105 mmol/L 06/08/2022 11:[address] [facility] CO2 29 22 - 30 mmol/L 06/08/2022 11:[address] [facility] Anion Gap 9 9 - 18 mmol/L 06/08/2022 11:[address] [facility] Calcium, Total 9.3 8.5 - 10.2 mg/dL 06/08/2022 11:[address] [facility] Estimated Glomerular Filtration Rate 117 >=60 mL/min/1. 73m 06/08/2022 11:[address] [facility] Comment:Estimated Glomerular Filtration Rate (eGFR) [...] actual GFR. Blood BLOOD SPECIMEN / Unknown 06/08/2022 8:45 AM EDT 06/08/2022 10:18 AM EDT us Priscila Fuentes MD LABORATORY Final Result [facility] [address] [facility] [place] [address], documented in this encounter Visit Diagnoses Not on filedocumented in this encounter Additional Health Concerns Infection Onset Date Last Indicated Resolved Time C. difficile Comment:Will reevaluate isolation precautions 14 days post-positive test 05/17/2022 05/17/2022 06/16/2022 8:51 PM E DT documented as of this encounter Care Teams Director Blood Bank Relationship Specialty Start Date End Date Oswaldo Turpin [address] [place] [phone] PCP - General Family Medicine 04/11/22 Enoch Aguirre [address] [address] General Surgery 01/05/22 Dione Montoya DO [address] [address] Referring Gastroenterology 09/30/23 documented as of this encounter
--- OUTSIDE RECORDS SUMMARY | 2024-08-28 12:37 | XMS_ITS | Encounter Summary ---
Author Organization [facility] Address [address] [place] [address] Phone Care Team Providers Care Heeler Machine Name Role Phone Oswaldo Turpin DO Primary Care Provider [phone] Oswaldo Turpin DO Primary Care Provider [phone] Encounter Details Date Type Department Care Team (Late st Contact Info) Description 01/04/2024 Scanned Document [facility] [address] [place] [phone] Scanning, Generic Provider Social History Tobacco Use [...] suspected to have Coronavirus/COVID-19? No / Unsure 12/26/2023 9:38 AM EDT documented as of this encounter Plan of Treatment Upcoming Encounters Date Type Department Care Team (Late st Contact Info) Description 09/16/2024 2:30 PM EDT Appointment [address] [phone] 09/16/2024 3:00 PM EDT Appointment [address] [phone] 09/23/2024 9:30 AM EDT Office Visit [address] [place] [phone] Deepika Dawn, TACKING STITCH REMOVER-ROTOPRINTER [address] [facility] [address], [facility] [address] [place] [address] Scheduled Orders Name Type Priority Associated Diagnoses Orde r Schedule Ultrasound- OnBase Scan Imaging O rdered: 01/04/2024 Ultrasound- OnBase Scan Imaging O rdered: 01/04/2024 documented as of this encounter Visit Diagnoses Not on filedocumented in this encounter Care Teams Heeler Machine Relationship Specialty Start Date End Date Oswaldo Turpin DO PCP - General 01/30/19 03/27/24 Oswaldo Turpin DO [address] [place] [address] PCP - General Family Medicine 03/28/24 documented as of this encounter
--- OUTSIDE RECORDS SUMMARY | 2024-08-28 12:38 | XMS_ITS | Patient Health Record ---
Author Organization [facility] [employer] es Address [address] [place] [address] Care Team Providers Care Flanging Roll Operator Name Role Phone Gely Glenna Primary Care Provider [phone] Jamal Rubin Unavailable [phone] Alysa Ignacio Unavailable [phone] Fiorella Mustafa Unavailable [phone] Allergies No Known Allergies Reason For Referral No Information Medications Medication SIG (Take, Route, Frequency, Duration) Notes Start Date End Date Status buPROPion HCl ER (XL) 150 mg take one tablet orally daily for 90 days Not-Taking Nitroglycerin 0.2 MG/HR 1 patch to skin remove after 12 hours Transdermal Once a day Active Cyclobenzaprine HCl 10 MG 1 tablet orally at bedtime Not-Taking Norvasc 5 MG 1 tablet orally daily Not-Taking Slow-Mag 71.5-119 MG 1 tablet Orally Once a day Active QUEtiapine Fumarate 50 MG 1 tablet at bedtime Orally Once a day for 90 days Active Pregabalin 50 MG 1 capsule Orally Once a day Active Metoprolol Succinate ER 50 MG 1 tablet Orally Once a day Active Losartan Potassium 25 MG 1 tablet Orally Once a day Active Ferrex 150 Active DULoxetine HCl 20 MG 1 capsule daily for 7 days then stop. Orally daily for 7 day(s) take for 7 days then stop. Not-Taking Rosuvastatin Calcium 20 MG 1 tablet Orally Once a day Active Tamsulosin HCl 0.4 MG 1 capsule Orally Once a day Active Propranolol HCl 20 MG 1 tablet orally daily Not-Taking Clopidogrel Bisulfate 75 MG 1 tablet Orally Once a day Active SEROquel 25 MG 1 tablet orally at bedtime Not-Taking Protonix 40 MG 1 tablet orally daily Active Melatonin 10 MG 1 tablet orally at bedtime (PRN) Active Folic Acid 1 MG 1 tablet orally daily Not-Taking Vimpat 100 MG 1 tablet orally daily Not-Taking Magnesium 400 MG 1 tablet orally daily Not-Taking Thiamine HCl 100 MG 1 tablet orally daily Not-Taking tiZANidine HCl 4 MG 1 tablet as needed Orally twice a day (bid) as needed (prn) Not-Taking Escitalopram Oxalate 10 MG 1 tablet Orally Once a day for 90 days 02/07/2024 Active SUMAtriptan Succinate 50 MG 1 tablet orally Twice a day Active Escitalopram Oxalate 20 MG 1 tablet Orally Once a day for 90 days Active Social History Tobacco Use: Social History Observation Description Date Details (start date - stop date) Current Smoker NA - NA Tobacco Screen: Question Answer Notes Are you a: current smoker How often do you smoke cigarettes? every day How many cigarettes a day do you smoke? 11-20 Alcohol Screening: Question Answer Notes Did you have a drink contain ing alcohol in the past year? Yes How often did you have a dri nk containing alcohol in the past year? Four or more times a week (4 points) How many drinks did you have on a typical day when you were drinking in the past year? 3 or 4 (1 point) How often did you have six o r more drinks on one occasion in the past year? Daily or almost daily (4 points) Points 9 Interpretation Positive Depression Screening (PHQ-9): Question Answer Notes Little interest or pleasure in doing things More than half the days Feeling down, depressed, or hopeless More than h care home the days Trouble falling or staying asleep, or sleeping t oo much Not at all Feeling tired or having little energy Not at all Poor appetite or overeating Not at all Feeling bad about yourself-o r that you are a failure or have let yourself or your family down Several days Trouble concentrating on thi ngs, such as reading the newspaper or watching television More than half the days Moving or speaking so slowly that other people could have noticed. Or the opposite being so fidgety or restless that you have been moving around a lot more than usual Not at all Thoughts that you would be b luci off , or of hurting yourself in some way Not at all Total Score 7 Intepretation Mild Depression Problems Problem Type SNOMED Code ICD Code Onset Dates Problem Status W/U Status Risk Notes Problem Major depressive disorder, recurrent episode, severe with anxious distress (F33.2) Active confirmed Vital Signs Heart Rate 87 /min 05/29/2024 Oximetry 97 % 05/29/2024 Blood pressure diastolic 75 mm Hg 05/29/2024 Height 70 in 05/29/2024 Blood pressure systolic 128 mm Hg 05/29/2024 Weight 129.0 lbs 05/29/2024 BMI 18.51 kg/m2 05/29/2024 Encounters Encounter Location Date Provider Diagnosis [address] [place] [address] 01/17/2024 [address] [place] [address] 12/20/2023 [address] [place] [address] 01/11/2024 [address] [place] [address] 02/05/2024 Glenna Cox Major depressive disorder, recurrent episode, severe with anxious distress F33.2 [address] [place] [address] 05/14/2024 Glenna Hong Major depressive disorder, recurrent episode, severe with anxious distress F33.2 [address] [place] [address] 12/04/2023 [facility] Encounter for dental examination and cleaning with abnormal findings Z01.21 ; Other dental procedure status Z98.818 ; Necrosis of pulp K04.1 ; Dental caries on pit and fissure surface penetrating into dentin K02.52 ; Acute gingivitis, plaque induced K05.00 ; Cracked tooth K03.81 and Partial loss of teeth, unspecified cause, class I K08.401 [address] [place] [address] 01/18/2024 [facility] Encounter for dental examination and cleaning with abnormal findings Z01.21 [facility] [address] [place] [address] 05/29/2024 Glenna Hong Major depressive disorder, recurrent episode, severe with anxious distress F33.2 [facility] [address] [place] [address] 11/22/2023 Glenna Hong Major depressive disorder, recurrent episode, severe with anxious distress F33.2 [facility] [address] [place] [address] 01/12/2024 Alysa Ignacio Chronic periodontitis, generalized, slight K05.321 Assessments Encounter Date Diagnosis (ICD Code) Assessment Notes Treatment Notes Treatment Clinical Notes Section Notes 11/22/2023 Major depressive disorder, recurrent episode, severe with anxious distress (ICD-10 - F33.2) Recommended treatment is: _ FDA approved medication for this age group include Selective Serotonin Reuptake Inhibitors (SSRI) and Selective Norepinephrine Reuptake Inhibitors (SNRI). . Selective serotonin reuptake inhibitors can cause nausea, headache, upset stomach, diarrhea, constipation, anxiety, irritability, and sexual dysfunction. . Please monitor for worsening of symptoms, especially suicidal ideations or morbid thoughts, and call office and or go to the emergency department immediately. Pt does not endorse exhibiting symptoms aligning with jaz. . The patient verbalizes understanding with all questions answered thoroughly and is in agreement with treatment plan. . Continue current treatment plan Patient/Guardian will call sooner if symptoms worsen. Patient understands to go to ER if needed if symptoms become severe. Crisis Intervention plan was discussed and agreed upon. Patient/Guardian will call 911 in case of emergency. Emergency contact information was provided to the patient/guardian. 05/29/2024 Major depressive disorder, recurrent episode, severe with anxious distress (ICD-10 - F33.2) Recommended treatment is: _ FDA approved medication for this age group include Selective Serotonin Reuptake Inhibitors (SSRI) and Selective Norepinephrine Reuptake Inhibitors (SNRI). . Selective serotonin reuptake inhibitors can cause nausea, headache, upset stomach, diarrhea, constipation, anxiety, irritability, and sexual dysfunction. . Please monitor for worsening of symptoms, especially suicidal ideations or morbid thoughts, and call office and or go to the emergency department immediately. Pt does not endorse exhibiting symptoms aligning with jaz. . The patient verbalizes understanding with all questions answered thoroughly and is in agreement with treatment plan. . Continue current treatment plan Patient/Guardian will call sooner if symptoms worsen. Patient understands to go to ER if needed if symptoms become severe. Crisis Intervention plan was discussed and agreed upon. Patient/Guardian will call 911 in case of emergency. Emergency contact information was provided to the patient/guardian. 12/04/2023 Encounter for dental examination and cleaning with abnormal findings (ICD-10 - Z01.21) 01/12/2024 Chronic periodontitis, generalized, slight (ICD-10 - K05.321) 01/18/2024 Encounter for dental examination and cleaning with abnormal findings (ICD-10 - Z01.21) 02/05/2024 Major depressive disorder, recurrent episode, severe with anxious distress (ICD-10 - F33.2) 05/14/2024 Major depressive disorder, recurrent episode, severe with anxious distress (ICD-10 - F33.2) 12/04/2023 Other dental procedure status (ICD-10 - Z98.818) 12/04/2023 Necrosis of pulp (ICD-10 - K04.1) 12/04/2023 Dental caries on pit and fissure surface penetrating into dentin (ICD-10 - K02.52) 12/04/2023 Acute gingivitis, plaque induced (ICD-10 - K05.00) 12/04/2023 Cracked tooth (ICD-10 - K03.81) 12/04/2023 Partial loss of teeth, unspecified cause, class I (ICD-10 - K08.401) Plan Of Treatment Next Appt Details Provider Name:Kay Hernadez 08/30/2024 11:15:00 AM, [address] [place] [address], [phone], Insurance Providers Payer Name Payer Address Payer Phone Subscriber Number Group Number Insured Name Patient Relationship to Insured Coverage Start Date Coverage End Date [facility] MEDICARE [address] [address] [place] [address] [id number] SARAY CLEMONS Self - patient is the insured 5 MEDICAID SEC TO [facility] [address] [place] [address] [id number] SARAY CLEMONS Self - patient is the insured 3 3 [facility] E-termed 22 [address] [place] [address] [id number] [employer] SARAY CLEMONS Self - patient is the insured 2 3 [facility] MEDICAID CFC after [employer] E-termed [address] [place] [address] [id number] SARAY CLEMONS Self - patient is the insured 2 3 [employer] [place] Medicaid [address] [place] [address] [id number] SARAY CLEMONS Self - patient is the insured 3 3 [employer] [address] [place] [address] [id number] SARAY CLEMONS Self - patient is the insured 3 3 MEDICARE CGS 1 [facility] [place] [phone] [id number] SARAY CLEMONS Self - patient is the insured 3 [facility] PPO MEDICARE ADVANTAGE [address] [address] [place] [address] [id number] SARAY CLEMONS Self - patient is the insured 3 Medical (General) History Medical History History ICD Code Hypertension epilepsy arthritis Chronic memory issues (TBI in 1982) Surgical History Surgery Date(Month/Year) stents put in 2023 Hospitalization History Reason Date(Month/Year) [facility] [place]: Seizures 10/23/2020 Duodenal ulcer, seizures 10/04/2018 [place]: alcohol withdraw, weakness 01/2021 Seizures 01/2018 Chest Pains 2016 [facility]: Weakness 12/19/2020
--- OUTSIDE RECORDS SUMMARY | 2024-08-28 12:38 | XMS_ITS | Encounter Summary ---
Author Organization [facility] Address [address] [id number] Care Team Providers Care Tool Design Checker Name Role Phone Enoch Aguirre Unavailable [phone] Oswaldo Turpin Primary Care Provider [phone] Dione Montoya DO Unavailable Source Comments In the event this information is protected by the Federal Confidentiality of Alcohol and Drug AbusePatient Records regulations: The Federal rules restrict any use of the information to criminally investigate or prosecute any alcohol or drug abuse patient.[facility] Encounter Details Date Type Department Care Team (Late st Contact Info) Description 06/17/2024 Patient [facility] [address] [place], [place] [id number] Provider, [facility] Egd/Colonoscopy Social History Tobacco Use Types Packs/Day Years Used Date Smoking Tobacco: Every Day Cigarettes Smokeless Tobacco: Never Comments:1.0ppdx since 1986 Alcohol Use Standard Drinks/Week Comments Yes 8 (1 standard drink = 0.6 oz pure alcohol) occ during football games/cook outs PHQ-2 Answer Date Recorded PHQ-2 score 5 05/16/2021 Area Deprivation Index Answer Date Moisés rded National Score (1-100), lower number is lower ri sk 55 07/28/2022 State Score (1-10), lower number is lower risk 3 07/28/2022 Data from: https://www.neighborhoodatlas.medicine.[facility]/. Last address used for calculation [address] [...] hearing? Answer Date of Assessment Author No 10/11/2022 2:53 PM Lor Shankar RN * Are you blind or do you have serious difficulty seeing, even when wearing glasses? Answer Date of Assessment Author No 10/11/2022 2:53 PM Lor Shankar RN * Do you have serious difficulty walking or climbing stairs? Answer Date of Assessment Author Yes 10/11/2022 2:53 PM Lor Shankar RN * Do you have difficulty dressing or bathing? Answer Date of Assessment Author Yes 10/11/2022 2:53 PM Lor Shankar RN * Because of a physical, mental, or emotional condition, do you have difficulty doing errands alone such as visiting a doctor's office or shopping? Answer Date of Assessment Author Yes 10/11/2022 2:53 PM Lor Shankar RN documented as of this encounter Mental Status * Because of a physical, mental, or emotional condition, do you have serious difficulty concentrating, remembering, or making decisions? Answer Entry Date Author Yes 10/11/2022 2:53 PM Lor Shankar RN documented in this encounter Plan of Treatment Not on file documented as of this encounter Visit Diagnoses Not on filedocumented in this encounter Care Teams Tool Design Checker Relationship Specialty Start Date End Date Oswaldo Turpin [address] [place] [address] PCP - General Family Medicine 04/11/22 Enoch Aguirre [address] [facility] [address] [place] [address] General Surgery 01/05/22 Dione Montoya DO [address] [place] [address] [address] [place] [address] Referring Gastroenterology 09/30/23 documented as of this encounter
--- OUTSIDE RECORDS SUMMARY | 2024-08-28 12:38 | XMS_ITS | Encounter Summary ---
Author Organization [employer] Address [id number] [address] [place] [address] Care Team Providers Care Hourly Team Members Name Role Phone Sebastián Boyer DO Primary Care Provider Encounter Details Date Type Department Care Team (Late st Contact Info) Description 08/27/2024 Orders Only [facility] [address] [place] [address] External, Scanning Provider Pain (Primary Dx) Social History Tobacco Use Types Packs/Day Years Used Date Smoking Tobacco: Every Day Cigarettes 2 25 Comments:smokes 3-4 cigarret es occasionally at [facility] Childcare Answer Date Recorded Childcare [...] pt spouse plan is to return to [facility] [place] documented as of this encounter Results * CT angiogram carotid (07/31/2024 3:10 AM EDT) us Scanning Provider External IMG CT ORDERABLES Fin al Result * CT angiogram head (07/31/2024 3:05 AM EDT) us Scanning Provider External IMG CT ORDERABLES Fin al Result documented in this encounter Visit Diagnoses Diagnosis Pain- Primary Generalized pain documented in this encounter Care Teams Hourly Team Members Relationship Specialty Start Date End Date Sebastián Boyer DO [address] [place] [address] PCP - General Family Medicine 08/26/24 documented as of this encounter
--- OUTSIDE RECORDS SUMMARY | 2024-08-28 12:38 | XMS_ITS | Encounter Summary ---
Author Organization [facility] Address [address] [address] Care Team Providers Care Blender Conveyor Operator Name Role Phone Enoch Aguirre Unavailable [phone] Oswaldo Turpin Primary Care Provider [phone] Dione Montoya DO Unavailable Source Comments In the event this information is protected by the Federal Confidentiality of Alcohol and Drug AbusePatient Records regulations: The Federal rules restrict any use of the information to criminally investigate or prosecute any alcohol or drug abuse patient.[facility] Encounter Details Date Type Department Care Team (Late st Contact Info) Description 06/24/2024 Results Follow-Up Gastroenterology [address] [id number] Nghia Live MD [place] [id number] Social History Tobacco Use Types Packs/Day Years Used Date Smoking Tobacco: Every Day Cigarettes Smokeless Tobacco: Never Comments:1.0ppdx since 1986 Alcohol Use Standard Drinks/Week Comments Yes 8 (1 standard drink = 0.6 oz pure alcohol) occ during football games/cook outs [facility] Utilities Answer Date Recorded In the past 12 months has th e electric, gas, oil, or water company threatened to shut off services in your [...] any time in the past 12 [facility], were you homeless or living in a fci (including now)? No 08/02/2024 Area Deprivation Index Answer Date Moisés rded National Score (1-100), lower number is lower ri sk 55 07/28/2022 State Score (1-10), lower number is lower risk 3 07/28/2022 Data from: https://www.neighborhoodatlas.medicine.[facility].edu/. Last address used for calculation [address] [...] on filedocumented in this encounter Care Teams Blender Conveyor Operator Relationship Specialty Start Date End Date Oswaldo Turpin [address] [place] [address] PCP - General Family Medicine 04/11/22 Enoch Aguirre [address] [place] [address] General Surgery 01/05/22 Dione Montoya DO [address] [place] [address] Referring Gastroenterology 09/30/23 documented as of this encounter
--- OUTSIDE RECORDS SUMMARY | 2024-08-28 12:38 | XMS_ITS | Encounter Summary ---
Author Organization [facility] Address [facility] [place] [address] Care Team Providers Care Cigarette Examiner Name Role Phone Enoch Aguirre Unavailable [phone] Oswaldo Turpin Primary Care Provider Dione Montoya DO Unavailable Source Comments In the event this information is protected by the Federal Confidentiality of Alcohol and Drug AbusePatient Records regulations: The Federal rules restrict any use of the information to criminally investigate or prosecute any alcohol or drug abuse patient.[facility] Encounter Details Date Type Department Care Team (Late st Contact Info) Description 06/11/2024 Patient Msg General Surgery [address] [place], [place] [id number] Provider, Gonzalo Zarco bowel prep instructions Social History Tobacco Use Types Packs/Day Years [...] is lower risk 3 07/28/2022 Data from: https://www.neighborhoodatlas.medicine.[facility]/. Last address used for calculation [address] [...] of Assessment Author No 10/11/2022 2:53 PM ROSAT Lor Villalobos RN * Are you blind or do [...] on filedocumented in this encounter Care Teams Cigarette Examiner Relationship Specialty Start Date End Date Oswaldo Turpin [address] [place], [place] [address] PCP - General Family Medicine 04/11/[address] [facility] [address] [place] [address] General Surgery 01/05/22 Dione Montoya DO [address] [facility] [address] [place] [address] Referring Gastroenterology 09/30/23 documented as of this encounter
--- OUTSIDE RECORDS SUMMARY | 2024-08-28 12:38 | XMS_ITS | Encounter Summary ---
Author Organization [facility] Address [address] [place] [address] Care Team Providers Care Publishing Director Name Role Phone Enoch Aguirre Unavailable [phone] Oswaldo Turpin Primary Care Provider [phone] Dione Montoya DO Unavailable Source Comments In the event this information is protected by the Federal Confidentiality of Alcohol and Drug AbusePatient Records regulations: The Federal rules restrict any use of the information to criminally investigate or prosecute any alcohol or drug abuse patient.[facility] Encounter Details Date Type Department Care Team (Late st Contact Info) Description 06/06/2024 Patient Msg Pre Anesthesia [address] [place] [address] Selena Novoa APRN.[employer] [address] [place] [address] pre anesthesia instructions Social History Tobacco Use Types Packs/Day [...] is lower risk 3 07/28/2022 Data from: https://www.neighborhoodatlas.[facility]/. Last address used for calculation [address] [...] on filedocumented in this encounter Care Teams Publishing Director Relationship Specialty Start Date End Date Oswaldo Turpin [address] [place] [address] PCP - General Family Medicine 04/11/22 Enoch Aguirre [address] [facility] [address] [place] [address] General Surgery 01/05/22 Dione Montoya DO [address] [facility] [address] [place] [address] Referring Gastroenterology 09/30/23 documented as of this encounter
--- OUTSIDE RECORDS SUMMARY | 2024-08-28 12:38 | XMS_ITS | Encounter Summary ---
Author Organization [facility] Address [address] [id number] Care Team Providers Care Risk Control Manager Name Role Phone Enoch Aguirre Unavailable [phone] Oswaldo Turpin Primary Care Provider [phone] Dione Montoya DO Unavailable Source Comments In the event this information is protected by the Federal Confidentiality of Alcohol and Drug AbusePatient Records regulations: The Federal rules restrict any use of the information to criminally investigate or prosecute any alcohol or drug abuse patient.[facility] Encounter Details Date Type Department Care Team (Late st Contact Info) Description 08/02/2024 Patient Msg Pulmonary Medicine [address] [address] Result Notification Social History Tobacco Use Types Packs/Day Years Used Date Smoking Tobacco: Every Day Cigarettes Smokeless Tobacco: Never Comments:1.0ppdx since 1986 Alcohol Use Standard Drinks/Week Comments Yes 8 (1 standard drink = 0.6 oz pure alcohol) occ during football games/cook outs [facility] Utilities Answer Date Recorded In the [...] any time in the past 12 m [facility], were you homeless or living in a [facility] (including now)? No 08/02/2024 Area Deprivation Index Answer Date Moisés rded National Score (1-100), lower number is lower ri sk 55 07/28/2022 State Score (1-10), lower number is lower risk 3 07/28/2022 Data from: https://www.neighborhoodatlas.medicine.[facility].edu/. Last address used for calculation [address] [...] of Assessment Author No 10/11/2022 2:53 PM EDT Lor Villalobos RN * Are you blind [...] on filedocumented in this encounter Care Teams Risk Control Manager Relationship Specialty Start Date End Date Oswaldo Turpin [address] [place] [phone] PCP - General Family Medicine 04/11/22 Enoch Aguirre [address] [place] [address] [address] [place] [address] General Surgery 01/05/22 Dione Montoya DO [address] [place] [address] [address] [place] [address] Referring Gastroenterology 09/30/23 documented as of this encounter
--- OUTSIDE RECORDS SUMMARY | 2024-08-28 12:38 | XMS_ITS | Encounter Summary ---
Author Organization [facility] Address [address] [place] [address] Care Team Providers Care Apprentice Painter Brush Name Role Phone Enoch Aguirre Unavailable [phone] Oswaldo Turpin Primary Care Provider [phone] Dione Montoya DO Unavailable Source Comments In the event this information is protected by the Federal Confidentiality of Alcohol and Drug AbusePatient Records regulations: The Federal rules restrict any use of the information to criminally investigate or prosecute any alcohol or drug abuse patient.[facility] Encounter Details Date Type Department Care Team (Late st Contact Info) Description 09/17/2022 [place] [address] Provider, Ccf Questionnaire Submission Social History Tobacco Use Types Packs/Day Years [...] is lower risk 3 07/28/2022 Data from: https://www.neighborhoodatlas.medicine.[facility]/. Last address used for calculation [address] [...] on filedocumented in this encounter Care Teams Apprentice Painter Brush Relationship Specialty Start Date End Date Oswaldo Turpin [address] [place] [phone] PCP - General Family Medicine 04/11/22 Enoch Aguirre [address] [facility] [address] [place] [address] General Surgery 01/05/22 Dione Montoya DO [address] [facility] [address] [place] [address] Referring Gastroenterology 09/30/23 documented as of this encounter
--- OUTSIDE RECORDS SUMMARY | 2024-08-28 12:38 | XMS_ITS | Encounter Summary ---
Author Organization [facility] Address [address] [place] [address] Care Team Providers Care Flake Or Shred Roll Operator Name Role Phone Enoch Aguirre Unavailable Oswaldo Turpin Primary Care Provider [phone] Dione Montoya DO Unavailable Source Comments In the event this information is protected by the Federal Confidentiality of Alcohol and Drug AbusePatient Records regulations: The Federal rules restrict any use of the information to criminally investigate or prosecute any alcohol or drug abuse patient.[facility] Encounter Details Date Type Department Care Team (Late st Contact Info) Description 08/26/2024 Telephone Head and Neck [place] [address] [place] [address] Sahil Euceda MD [address] [place] [address] Social History Tobacco Use Types Packs/Day Years Used Date Smoking Tobacco: Every Day Cigarettes Smokeless Tobacco: Never Comments:1.0ppdx since 1986 Alcohol Use Standard Drinks/Week Comments Yes 8 (1 standard drink = 0.6 oz pure alcohol) occ during football games/cook outs [facility] Utilities Answer Date Recorded In the past [...] any time in the past 12 m [facility], were you homeless or living in a halfway (including now)? No 08/02/2024 Area Deprivation Index Answer Date Moisés rded National Score (1-100), lower number is lower ri sk 55 07/28/2022 State Score (1-10), lower number is lower risk 3 07/28/2022 Data from: https://www.neighborhoodatlas.medicine.[facility]/. Last address used for calculation [address] [...] Kaylin Garcia RN documented in this encounter Miscellaneous Notes * Telephone Encounter - Camila Negron - 08/26/2024 8:51 AM EDT Spoke with patient caregiver Patient is currently admitted at hospital and will call back to schedule with laryngology Gave correct call back number documented in this encounter Plan of Treatment Not on file documented as of this encounter Visit Diagnoses Not on filedocumented in this encounter Care Teams Flake Or Shred Roll Operator Relationship Specialty Start Date End Date Oswaldo Turpin [address] [place] [phone] PCP - General Family Medicine 04/11/22 Enoch Aguirre [address] [phone] General Surgery 01/05/22 Dione Montoya DO [address] [address] Referring Gastroenterology 09/30/23 documented as of this encounter
--- OUTSIDE RECORDS SUMMARY | 2024-08-28 12:38 | XMS_ITS | Encounter Summary ---
Author Organization [facility] Address [address] [place] [address] Care Team Providers Care Aerial Photograph Interpreter Name Role Phone Enoch Aguirre Unavailable [phone] Oswaldo Turpin Primary Care Provider [phone] Dione Montoya DO Unavailable Source Comments In the event this information is protected by the Federal Confidentiality of Alcohol and Drug AbusePatient Records regulations: The Federal rules restrict any use of the information to criminally investigate or prosecute any alcohol or drug abuse patient.[facility] Encounter Details Date Type Department Care Team (Late st Contact Info) Description 06/06/2024 Patient Msg Pre Anesthesia [address] [place] [address] Selena Novoa APRN.WEB EDITOR [address] [place] [address] bowel prep instructions provided by your surgeon Social History Tobacco Use Types Packs/Day Years [...] is lower risk 3 07/28/2022 Data from: https://www.neighborhoodatlas.medicine.[facility]/. Last address used for calculation [address] [...] on filedocumented in this encounter Care Teams Aerial Photograph Interpreter Relationship Specialty Start Date End Date Oswaldo Turpin [address] [place] [phone] PCP - General Family Medicine 04/11/22 Enoch Aguirre [address] [facility] [address] [place] [phone] General Surgery 01/05/22 Dione Montoya DO [address] [facility] [address] [place] [address] Referring Gastroenterology 09/30/23 documented as of this encounter
--- OUTSIDE RECORDS SUMMARY | 2024-08-28 12:38 | XMS_ITS | Encounter Summary ---
Author Organization [facility] Address [address] [place] [address] Phone Care Team Providers Care Backend Python Developer Name Role Phone Oswaldo Turpin Primary Care Provider Encounter Details Date Type Department Care Team (Late st Contact Info) Description 05/17/2024 Scanned Document [facility] [address] [place] [phone] Scanning, Generic Provider Social History Tobacco Use [...] Info) Description 09/16/2024 2:30 PM EDT Appointment [address] [phone] 09/16/2024 3:00 PM EDT Appointment [place] [address] [phone] [place] [phone] 09/23/2024 9:30 AM EDT Office Visit [address] [phone] Deepika Dawn, PRESIDENT AND CHIEF OPERATING OFFICER-CARE NURSE RN [address] [facility] [address] [place], [place] [phone] documented as of this encounter Visit Diagnoses Not on filedocumented in this encounter Care Teams Backend Python Developer Relationship Specialty Start Date End Date Oswaldo Turpin DO [address] [phone] PCP - General Family Medicine 03/28/24 documented as of this encounter
--- OUTSIDE RECORDS SUMMARY | 2024-08-28 12:38 | XMS_ITS | Encounter Summary ---
Author Organization [facility] Address [facility] [place] [id number] Care Team Providers Care Loss Prevention Supervisor Name Role Phone Enoch Aguirre Unavailable [phone] Oswaldo Turpin Primary Care Provider [phone] Dione Montoya DO Unavailable Source Comments In the event this information is protected by the Federal Confidentiality of Alcohol and Drug AbusePatient Records regulations: The Federal rules restrict any use of the information to criminally investigate or prosecute any alcohol or drug abuse patient.[facility] Encounter Details Date Type Department Care Team (Late st Contact Info) Description 06/17/2024 GI Preprocedure Call [facility] [place] [phone] [place] [address] Social History Tobacco Use Types Packs/Day Years [...] is lower risk 3 07/28/2022 Data from: https://www.neighborhoodatlas.medicine.[facility]/. Last address used for calculation [address] [...] on filedocumented in this encounter Care Teams Loss Prevention Supervisor Relationship Specialty Start Date End Date PapiOswaldo [address] [place] [address] PCP - General Family Medicine 04/11/22 Enoch Aguirre [address] [facility] [address] [place] [phone] General Surgery 01/05/22 Dione Montoya DO [address] [facility] [address] [place], [place] [phone] Referring Gastroenterology 09/30/23 documented as of this encounter
--- OUTSIDE RECORDS SUMMARY | 2024-08-28 12:38 | XMS_ITS | Clinical Summary ---
Author Organization [facility] Address [address] [place] [address] Care Team Providers Care Skein Mercerizing Machine Operator Name Role Phone Oswaldo Turpin DO Primary Care Provider [phone] Allergies Active Allergy Reactions Criticality Noted Date Comments Morphine 09/17/2021 Other Reaction(s): Hallucinations, Other (See Comments) [facility] RN does not know what type of reaction pt has to morphine Medications aspirin 81 MG EC tablet Take 81 mg by mouth in the morning. Active clopidogrel (Plavix) 75 MG tablet Daily 4 Active cyclobenzaprine (Flexeril) 10 MG tablet Daily at bedtime 4 Active escitalopram (Lexapro) 10 MG tablet Daily 4 Active losartan (Cozaar) 100 MG tablet Take 100 mg by mouth in the morning. 4 12/25/19 25 Active Melatonin 10 MG tablet dispersible Take 10 mg by mouth Daily as needed Active metoprolol succinate XL (Toprol-XL) 50 MG 24 hr tablet Daily 4 Active Multiple Vitamin (Multi-Vitamin) tablet Take 1 tablet by mouth in the morning. Active nitroglycerin (Nitrostat) 0.4 MG SL tablet Q5M 4 Active nitroglycerin (Nitrodur) 0.2 MG/HR patch Daily 4 Active pantoprazole (ProtoNix) 40 MG EC tablet Daily 4 Active pregabalin (Lyrica) 75 MG capsule Take 75 mg by mouth in the morning and 75 mg in the evening and 75 mg before bedtime. Active QUEtiapine (SEROquel) 50 MG tablet Daily at bedtime 4 Active rosuvastatin (Crestor) 20 MG tablet Daily 4 Active tamsulosin (Flomax) 0.4 MG 24 hr capsule Daily 4 Active traMADol (Ultram) 50 MG tablet Take 50 mg by mouth 2 (two) times a day as needed Active amoxicillin (Amoxil) 875 MG tablet Take 875 mg by mouth in the morning and 875 mg before bedtime. 4 Active carvedilol (Coreg) 12.5 MG tablet Twice daily 4 Active furosemide (Lasix) 20 MG tablet Daily 4 Active Ferrex 150 150 MG capsule Take 150 mg by mouth every other day Active Klor-Con 20 MEQ packet DISSOLVE 1 PACKET IN WATER & DRINK ONCE DAILY 4 Active SUMAtriptan (Imitrex) 50 MG tablet Twice daily 4 Active buPROPion XL (Wellbutrin XL) 150 MG 24 hr tablet Take 150 mg by mouth Daily 4 Active dapagliflozin (Farxiga) 10 MG Take 10 mg by mouth in the morning. 4 01/23/20 25 Active lisinopril 2.5 MG tablet Take 2.5 mg by mouth Daily 4 Active Slow-Mag 71.5-119 MG tablet delayed-release Take 1 tablet by mouth Daily 4 Active spironolactone (Aldactone) 25 MG tablet Take 12.5 mg by mouth in the morning. 4 01/23/20 25 Active tiZANidine (Zanaflex) 4 MG tablet TAKE 1 TABLET BY MOUTH NEEDED UP TO TWICE DAILY Active Active Problems No known active problems Family History Medical History Relation Name Comments Stroke Father Heart disease Mother Relation Name Status Comments Father Mother Social History Tobacco Use Types Packs/Day Years Used Date Smoking Tobacco: Every Day Cigarettes Started: 1986 Smokeless Tobacco: Never Tobacco Cessation:Ready to Q uit: Not Asked; Counseling Given: Not Answered Alcohol Use Standard Drinks/Week Comments Not Currently 0 (1 standard drink = 0.6 oz pur e alcohol) Sex and Gender Information Value Date Recorded Sex Assigned at Not on file Legal Sex Male 6:51 PM EDT Gender Identity Not on file Sexual Orientation Not on file Last Filed Vital Signs Vital Sign Reading Time Taken Comments Blood Pressure 130/74 12/22/2021 12:00 PM EDT Pulse - - Temperature - - Respiratory Rate - - Oxygen Saturation - - Inhaled Oxygen Concentration - - Weight 59.4 kg (131 lb) 02/21/2024 9:53 AM EST Height 177.8 cm (5' 10 ) 02/21/2024 9:53 AM EST Body Mass Index 18.8 02/21/2024 9:53 AM EST Plan of Treatment Health Maintenance Due Date Last Done Comments CT Colonography 1960 Colonoscopy 1960 Colorectal Cancer Screening 1960 FIT-DNA 1960 FIT 1960 FOBT 1960 Sigmoidoscopy 1960 Influenza Vaccine (Season Ended) 2024 12/20/2020, 01/21/2020, 01/29/2018 Insurance [facility] [address] [place] [address] [facility] [address] Care Teams Skein Mercerizing Machine Operator Relationship Specialty Start Date End Date Oswaldo Turpin DO PCP - General Family Medicine 09/05/23
--- OUTSIDE RECORDS SUMMARY | 2024-08-28 12:38 | XMS_ITS | Clinical Summary ---
Author Organization [facility] Address [address] [place] [address] Phone Care Team Providers Care Library Clerk Talking Books Name Role Phone Oswaldo Turpin DO Primary Care Provider [phone] Allergies No known active allergies Medications aspirin 81 mg EC tablet Take 1 tablet (81 mg) by mouth once daily. Active cyclobenzaprine (Flexeril) 10 mg tablet Take 1 tablet (10 mg) by mouth once daily. Active traMADol (Ultram) 50 mg tablet Take 1 tablet (50 mg) by mouth every 4 hours if needed for severe pain (7 - 10). Active QUEtiapine (SEROquel) 50 mg tablet Take 1 tablet (50 mg) by mouth once daily at bedtime. Active tamsulosin (Flomax) 0.4 mg 24 hr capsule Take 1 capsule (0.4 mg) by mouth once daily. Active pregabalin (Lyrica) 75 mg capsule Take 1 capsule (75 mg) by mouth 3 times a day. Active escitalopram (Lexapro) 10 mg tablet Take 1 tablet (10 mg) by mouth once daily. Active rosuvastatin (Crestor) 20 mg tablet Take 1 tablet (20 mg) by mouth once daily. Active nitroglycerin (Nitrostat) 0.[address] 1 tablet (0.4 mg) under the tongue every 5 minutes if needed for chest pain. Active melatonin 10 mg tablet,disintegr ating Take 10 mg by mouth once daily as needed. Active magnesium chloride (SLOW-MAG ORAL) Take by mouth. Active pantoprazole (ProtoNix) 40 mg EC tablet Take 1 tablet (40 mg) by mouth once daily in the morning. Take before meals. Do not crush, chew, or split. Active metoprolol succinate XL (Toprol-XL) 50 mg 24 hr tabletIndication s:Tachycardia Take 1 tablet (50 mg) by mouth once daily. Do not crush or chew. 90 tablet 3 4 11/16/19 25 Active nitroglycerin (Nitrodur) 0.2 mg/hr patchIndications :Angina pectoris, unstable (Multi) Place 1 patch over 12 hours on the skin once daily. Remove at night for at least 10 hours. 90 patch 3 4 11/16/19 25 Active clopidogrel (Plavix) 75 mg tabletIndication s:NSTEMI (non-ST elevation myocardial infarction) (Multi) Take 1 tablet (75 mg) by mouth once daily. 90 tablet 3 4 12/21/19 25 Active sacubitriL-valsa rtan (Entresto) 24-26 mg tabletIndication s:Cardiomyopathy , ischemic Take 1 tablet by mouth 2 times a day. 180 tablet 3 4 01/23/20 25 Active spironolactone (Aldactone) 25 mg tabletIndication s:Cardiomyopathy , ischemic Take 0.5 tablets (12.5 mg) by mouth once daily. 45 tablet 3 4 01/23/20 25 Active dapagliflozin propanediol (Farxiga) 10 mgIndications:Ca rdiomyopathy, ischemic Take 1 tablet (10 mg) by mouth once daily. 90 tablet 3 4 01/23/20 25 Active escitalopram (Lexapro) 20 mg tablet Take 1 tablet (20 mg) by mouth once daily. Takes with 10mg dose to equal 30mg daily Active sildenafil (Viagra) 100 mg tablet Take 1 tablet (100 mg) by mouth if needed. 4 Active fluticasone (Flonase) 50 mcg/actuation nasal spray Administer 1 spray into affected nostril(s) once daily. Active Active Problems Problem Noted Date Diagnosed Date BMI 21.0-21.9, adult 03/28/2024 COPD (chronic obstructive pulmonary disease) (Mu lti) 03/28/2024 Cigarette smoker 11/16/2023 Hospital discharge follow-up 11/16/2023 Tachycardia 11/16/2023 Angina pectoris, unstable (Multi) 11/16/2023 Hypertension 11/16/2023 Contraindication to percutan eous coronary intervention (PCI) 11/16/2023 History of TIA (transient ischemic attack) 10/12 History of VT (myocardial infarction) 10/13/2023 LUZ (obstructive sleep apnea) 10/13/2023 CAD (coronary artery disease) 10/13/2023 NSTEMI (non-ST elevation myocardial infarction) (Multi) 10/13/2023 Cardiomyopathy, ischemic 10/13/2023 Mixed hyperlipidemia 10/13/2023 Encounters Date Type Department Care Team Description 08/05/[address] [phone] Kavita Torres, drill foreman Only from Last 3 Months Family History Medical History Relation Name Comments Stroke Father Heart attack Mother Relation Name Status Comments Father Mother Social History Tobacco Use Types Packs/Day Years Used Date Smoking Tobacco: Every Day Cigarettes Tobacco Cessation:Ready to Q uit: No; Counseling Given: Yes Alcohol Use Standard Drinks/Week Comments Yes 0 (1 standard drink = 0.6 oz pur e alcohol) social Sex and Gender Information Value Date Recorded Sex Assigned at Not on file Legal Sex Male 2:39 PM EST Gender Identity Not on file Sexual Orientation Not on file Last Filed Vital Signs Vital Sign Reading Time Taken Comments Blood Pressure 110/68 03/28/2024 10:59 AM EST Pulse 68 03/28/2024 10:59 AM EST Temperature - - Respiratory Rate - - Oxygen Saturation - - Inhaled Oxygen Concentration - - Weight 62.9 kg (138 lb 9.6 oz) 03/28/2024 10:59 AM EST Height 172.7 cm (5' 8 ) 03/28/2024 10:59 AM EST Body Mass Index 21.07 03/28/2024 10:59 AM EST Plan of Treatment Upcoming Encounters Date Type Department Care Team (Late st Contact Info) Description 09/16/2024 2:30 PM EDT Appointment [address] [phone] 09/16/2024 3:00 PM EDT Appointment [address] [phone] 09/23/2024 9:30 AM EDT Office Visit [facility] [address] [facility] [address] [place] [address] Deepika Dawn, BAR TACKER-FORECLOSURE SPECIALIST [address] [place] [address] Health Maintenance Due Date Last Done Comments CT Colonography 1960 Creatinine Level 1960 FIT-DNA (Cologuard) 1960 FIT 1960 HIV Screening 1960 Lipid Panel 1960 Medicare Annual Wellness Vis it (AWV) 1960 Potassium Level 1960 MMR Vaccines (1 of 1 - Standard series) 1961 Hepatitis C Screening 1978 Hepatitis A Vaccines (1 of 2 - Risk 2-dose series) 09/29/1979 Pneumococcal Vaccine (1 of 2 - PCV) 09/29/1979 DTaP/Tdap/Td Vaccines (1 - Tdap) 1982 Zoster Vaccines (1 of 2) 2010 Hepatitis B Vaccines (1 of 3 - Risk 3-dose series) 2020 RSV High Risk: (Elderly (60+ ) or Population) (1 - Risk 60-74 years 1-dose series) 2020 Diabetes Screening 06/04/2023 06/03/2022, 04/28/2022, 09/12/2021 COVID-19 Vaccine (2 - 2023-2 5 season) 2023 01/29/2021 Influenza Vaccine (Season Ended) 2024 12/20/2020, 01/21/2020, 01/29/2018 Echocardiogram 12/25/2024 12/26/2023, 08/29/2023 Sigmoidoscopy 06/20/2029 06/20/2024 Colonoscopy 06/20/2034 06/20/2024 Colorectal Cancer Screening 06/20/2034 Irritable Bowel Syndrome Discontinued 06/20/2024 HIB Vaccines Aged Out No longer eligi [...] on patient's age to complete this topic Rotavirus Vaccines Aged Out No longer eligible based on patient's age to complete this topic Procedures Procedure Name Priority Date/Time Associated Diagnosis Comments TRANSTHORACIC ECHO (TTE) LIMITED Routine 12/26/2023 10:27 AM EDT Cardiomyopathy, ischemic from Last 3 Months or Most Recently Relevant to Health Maintenance Results * TRANSTHORACIC ECHO (TTE) LIMITED (12/26/2023 10:27 AM EDT) LV Biplane EF 39 % SYNGO LVOT diam 2.10 cm SYNGO LV EF 38 % SYNGO LVIDd 5.43 cm SYNGO LV A4C EF 41.1 SYNGO 12/26/2023 10:1 4 AM EDT Narrative SYNGO - 12/26/2023 4:36 PM EDT [address], [address] [place] [address] TRANSTHORACIC ECHOCARDIOGRAM REPORT Patient Name: SARAY Roberts Physician: [id number] Nasir Bucio MD Study Date: 12/26/2023 Ordering Provider: [id number] MARIE TORRES MRN/PID: [id number] Fellow: Nurse: Date of /Age: 7 1960 / 63 years Timber Selector: Alejandrina Paz RD, RVT Gender: M Additional Staff: Height: 172.72 cm Admit Date: Weight: 58.06 kg Admission Status: BSA / BMI: 1.69 m2 / 19.46 kg/m2 Department Location: [facility] Blood Pressure: 146 /84 mmHg Study Type: TRANSTHORACIC ECHO (TTE) LIMITED Diagnosis/ICD: Ischemic cardiomyopathy-I25.5 Indication: CAD, VT and PTCA-09/2024, HTN, Hyperlipidemia, Tobacco Abuse, CVA CPT Codes: Echo Limited-72160 Study Detail: The following Echo studies were performed: 2D and M-Mode. PHYSICIAN INTERPRETATION: Left Ventricle: Left ventricular ejection [...] noted. Aorta: The aortic root is normal. CONCLUSIONS: 1. Left ventricular ejection fraction is moderately decreased, by visual estimate at 35-40%. 2. There is global LV hypokinesis. However the apex appears almost akinetic. 3. There is normal right ventricular global systolic function. 4. When compared to previous study LVEF appears slightly lower with more defined regional motion abnormality. QUANTITATIVE DATA SUMMARY: 2D MEASUREMENTS: Normal Ranges: Ao Root d: 3.00 cm (2.0-3.7cm) LAs: 4.20 cm (2.7-4.0cm) RVIDd: 2.28 cm (0.9-3.6cm) IVSd: 1.25 cm (0.6-1.1cm) LVPWd: 0.93 cm (0.6-1.1cm) LVIDd: 5.43 cm (3.9-5.9cm) LVIDs: 4.31 cm LV Mass Index: 138.6 g/m2 LV % FS 20.6 % LV SYSTOLIC FUNCTION BY 2D PLANIMETRY (MOD): Normal Ranges: EF-A4C View: 41 % (>=55%) EF-A2C View: 38 % EF-Biplane: 39 % EF-Visual: 38 % LV EF Reported: 38 % AORTIC VALVE: Normal Ranges: LVOT Diameter: 2.10 cm (1.8-2.4cm) [id number] Nasir Bucio MD Electronically signed on 12/26/2023 at 4:36:18 PM Final Procedure Note Nasir Bucio MD - 12/26/[address], [address], [place] [address] TRANSTHORACIC ECHOCARDIOGRAM REPORT Patient Name: SARAY CLEMONS Alejandra Physician: [id number] Armando Study Date: 12/26/2023 Ordering Provider: [id number] TORRES MRN/PID: [id number] Fellow: Nurse: Date of /Age: 7 1960 / 63 years Timber Selector: Efren CABRALES RVT Gender: M Additional Staff: Height: 172.72 cm Admit Date: Weight: 58.06 kg Admission Status: BSA / BMI: 1.69 m2 / 19.46 kg/m2 Department Location: [facility] Blood Pressure: 146 /84 mmHg Study Type: TRANSTHORACIC ECHO (TTE) LIMITED Diagnosis/ICD: Ischemic cardiomyopathy-I25.5 Indication: CAD, VT and PTCA-09/2024, HTN, Hyperlipidemia, TobaccoAbuse, CVA CPT Codes: Echo Limited-03638 Study Detail: The following Echo studies were performed: 2D and M-Mode. PHYSICIAN INTERPRETATION: Left Ventricle: Left ventricular ejection fraction is moderatelydecreased, by visual estimate at 35-40%. The left ventricular cavity sizeis normal. Left ventricular diastolic filling was not assessed. There isglobal LV hypokinesis. However the apex appears almost akinetic. Left Atrium: The left atrium is mildly dilated. Right Ventricle: The right ventricle is normal in size. There is normalright ventricular global systolic function. Right Atrium: The right atrium is normal in size. Aortic Valve: The aortic valve appears structurally normal. Aortic valveregurgitation was not assessed. Mitral Valve: The mitral valve is normal in structure. Mitral valveregurgitation was not assessed. Tricuspid Valve: The tricuspid valve is structurally normal. Tricuspidregurgitation was not assessed. Pulmonic Valve: The pulmonic valve is structurally normal. The pulmonicvalve regurgitation was not assessed. Pericardium: No pericardial effusion noted. Aorta: The aortic root is normal. CONCLUSIONS: 1. Left ventricular ejection fraction is moderately decreased, by visualestimate at 35-40%. 2. There is global LV hypokinesis. However the apex appears almostakinetic. 3. There is normal right ventricular global systolic function. 4. When compared to previous study LVEF appears slightly lower with moredefined regional motion abnormality. QUANTITATIVE DATA SUMMARY: 2D MEASUREMENTS: Normal Ranges: Ao Root d: 3.00 cm (2.0-3.7cm) LAs: 4.20 cm (2.7-4.0cm) RVIDd: 2.28 cm (0.9-3.6cm) IVSd: 1.25 cm (0.6-1.1cm) LVPWd: 0.93 cm (0.6-1.1cm) LVIDd: 5.43 cm (3.9-5.9cm) LVIDs: 4.31 cm LV Mass Index: 138.6 g/m2 LV % FS 20.6 % LV SYSTOLIC FUNCTION BY 2D PLANIMETRY (MOD): Normal Ranges: EF-A4C View: 41 % (>=55%) EF-A2C View: 38 % EF-Biplane: 39 % EF-Visual: 38 % LV EF Reported: 38 % AORTIC VALVE: Normal Ranges: LVOT Diameter: 2.10 cm (1.8-2.4cm) [id number] Nasir Bucio MD Electronically signed on 12/26/2023 at 4:36:18 PM Final Marie Torres DO CV ECHO PROCEDURES Final Re sult SYNGO from Last 3 Months or Most Recently Relevant to Health Maintenance [place] [address] [place] [address] [employer] MEDICARE [facility] [employer] MEDICARE Care Teams Library Clerk Talking Books Relationship Specialty Start Date End Date Oswaldo Turpin DO [address] [place] [address] PCP - General Family Medicine 03/28/24
--- OUTSIDE RECORDS SUMMARY | 2024-08-28 12:39 | XMS_ITS | Encounter Summary ---
Author Organization [facility] Address [address] [place] [address] Phone Care Team Providers Care Bobbin Loose End Finder Name Role Phone Oswaldo Turpin DO Primary Care Provider [phone] Dione Talavera RN Unavailable Unavailable Dione Talavera RN Unavailable Unavailable Oswaldo Turpin DO Primary Care Provider [phone] Encounter Details Date Type Department Care Team (Late st Contact Info) Description 08/29/2023 Scanned Document [facility] [address] [place] [phone] Scanning, Generic Provider Social History Tobacco Use [...] Info) Description 09/16/2024 2:30 PM EDT Appointment [address] [phone] 09/16/2024 3:00 PM EDT Appointment [place] [id number] [place] [phone] 09/23/2024 9:30 AM EDT Office Visit [address] [phone] Deepika Dawn, SORTER PRICER-POSITIVE PRINTER OPERATOR [address] [facility] [address] [place], [place] [phone] documented as of this encounter Procedures Procedure Name Priority Date/Time Associated Diagnosis Comments ECHOCARDIOGRAM 08/29/2023 documented in this encounter Results * Echocardiogram (08/29/2023) Narrative 08/29/2023 Ordered by an unspecified provider. us Generic Provider Scanning CV ECHO PROCEDURES Fin al Result documented in this encounter Visit Diagnoses Not on filedocumented in this encounter Care Teams Bobbin Loose End Finder Relationship Specialty Start Date End Date Oswaldo Turpin DO PCP - General 01/30/19 03/27/24 Oswaldo Turpin DO [facility] [place] [address] PCP - General Family Medicine 03/28/24 Dione Talavera, museum registrarAuto Body Repair Teacher 10/02/23 10/17/23 Dione Talavera RN Care Auto Body Repair Teacher 10/24/23 11/23/23 documented as of this encounter
--- OUTSIDE RECORDS SUMMARY | 2024-08-28 12:39 | XMS_ITS | Clinical Summary ---
Author Organization [facility] Address [address] [place] [address] Care Team Providers Care Experimental Electronics Developer Name Role Phone Juan Manueljanuary Oswaldo Merida DO Primary Care Provider [phone] Allergies Active Allergy Reactions Criticality Noted Date Comments Morphine Hallucinations 09/17/2021 Medications lacosamide (VIMPAT) 100 MG TABS tabletIndicatio ns:Seizure disorder (HCC) Take 1 tablet by mouth 2 times daily for 30 days. 60 tablet 01/30/20 21 Active DULoxetine (CYMBALTA) 60 MG extended release capsule Take 1 capsule by mouth daily 30 capsule 01/30/20 21 Active QUEtiapine (SEROQUEL) 25 MG tablet Take 1 tablet by mouth nightly 30 tablet 01/30/20 21 Active folic acid (FOLVITE) 1 MG tablet Take 1 tablet by mouth daily 30 tablet 01/30/20 21 Active polyethylene glycol (GLYCOLAX) 17 g packet Take 17 g by mouth daily as needed for Constipation 01/30/20 21 Active melatonin 3 MG TABS tablet Take 2 tablets by mouth nightly 60 tablet 01/30/20 21 Active magnesium oxide (MAG-OX) 400 (241.3 Mg) MG TABS tablet Take 1 tablet by mouth daily 30 tablet 01/30/20 21 Active levothyroxine (SYNTHROID) 25 MCG tablet Take 1 tablet by mouth Daily 30 tablet 01/30/20 21 Active pantoprazole (PROTONIX) 40 MG tablet Take 1 tablet by mouth every morning (before breakfast) 30 tablet 01/30/20 21 Active thiamine mononitrate (THIAMINE) 100 MG tablet Take 1 tablet by mouth daily 30 tablet 01/30/20 Active levETIRAcetam (KEPPRA) 250 MG tablet Take 1 tablet by mouth in the morning and 1 tablet before bedtime. 60 tablet 3 09/18/19 Active aspirin 81 MG chewable tablet Take 1 tablet by mouth in the morning. 30 tablet 3 09/19/19 Active atorvastatin (LIPITOR) 10 MG tablet Take 1 tablet by mouth nightly 30 tablet 3 09/18/19 Active metoprolol tartrate (LOPRESSOR) 25 MG tablet Take 0.5 tablets by mouth in the morning and 0.5 tablets before bedtime. 60 tablet 3 09/18/19 Active fluticasone (FLONASE) 50 MCG/ACT nasal spray 1 spray by Each Nostril route in the morning. 16 g 3 09/19/19 Active Menthol-Methyl Salicylate (MUSCLE RUB) 10-15 % CREA cream Apply 1 Tube topically as needed (back pain) 1 each 09/18/19 Active lipase-protease -amylase (CREON) 08256-92198 units delayed release capsule Take by mouth 3 times daily (with meals) 180 capsule 09/18/19 Active senna (SENOKOT) 8.6 MG tablet Take 2 tablets by mouth daily as needed (Constipation) 60 tablet 09/18/19 Active tamsulosin (FLOMAX) 0.4 MG capsule Take 1 capsule by mouth in the morning. 30 capsule 3 09/19/19 Active nicotine (NICODERM CQ) 21 MG/24HR Place 1 patch onto the skin in the morning. 30 patch 3 09/19/19 Active midodrine (PROAMATINE) 5 MG tablet Take 1 tablet by mouth in the morning and 1 tablet at noon and 1 tablet in the evening. Take with meals. 90 tablet 3 09/18/19 Active ipratropium-alb uterol (DUONEB) 0.5-2.5 (3) MG/3ML SOLN nebulizer solution Inhale 3 mLs into the lungs in the morning and 3 mLs at noon and 3 mLs in the evening and 3 mLs before bedtime. 360 mL 09/18/19 Active propranolol (INDERAL) 20 MG tablet Take 1 tablet by mouth every 12 hours 60 tablet 01/30/20 21 022 Discontin ued(Stop Taking at Discharge ) amLODIPine (NORVASC) 5 MG tablet Take 1 tablet by mouth daily 30 tablet 01/30/20 21 022 Discontin ued(Stop Taking at Discharge ) Active Problems Problem Noted Date Diagnosed Date Pneumonia 09/11/2021 Left pleural effusion 09/08/2021 Clostridium difficile infection 09/06/2021 Chest pain 09/04/2021 Hypothyroid 09/04/2021 Suspected chronic obstructiv e pulmonary disease based on initial evaluation 09/04/2021 Wernicke-Korsakoff syndrome (alcoholic) 08/31/19 Alcohol abuse 08/28/2021 Bandemia 08/28/2021 Pancreatitis, recurrent 08/27/2021 Hypovolemia dehydration 01/24/2021 Migraine with aura and witho ut status migrainosus, not intractable 01/15/2021 Non-intractable vomiting Seizure disorder MCI (mild cognitive impairment) History of traumatic brain injury MDD (major depressive disord er), recurrent episode, moderate Debility Alcoholism Pancreatic pseudocyst Elevated lipase Abdominal pain, epigastric Weakness Acute on chronic pancreatitis Elevated C-reactive protein (CRP) Irritable bowel syndrome with diarrhea Leukocytosis Immunizations Immunization Administration Dates Next Due COVID-19, J&J, (age 18y+), IM, 0.5 mL 01/29/2021 Social History Tobacco Use Types Packs/Day Years Used Date Smoking Tobacco: Every Day Cigarettes 1 41.5 Started: 1983 Smokeless Tobacco: Never Tobacco Cessation:Ready to Q uit: No; Counseling Given: No Alcohol Use Standard Drinks/Week Comments Not Currently 28 (1 standard drink = 0.6 oz pu re alcohol) Sex and Gender Information Value Date Recorded Sex Assigned at Not on file Legal Sex Male 10:06 AM EST Gender Identity Not on file Sexual Orientation Not on file Last Filed Vital Signs Vital Sign Reading Time Taken Comments Blood Pressure 140/97 09/17/2021 10:31 AM EDT Pulse 104 09/17/2021 3:09 PM EDT Temperature 36.4 C (97.5 F) 09/17/2021 1:24 PM EDT Respiratory Rate 18 09/17/2021 3:09 PM EDT Oxygen Saturation 93% 09/17/2021 3:09 PM EDT Inhaled Oxygen Concentration - - Weight 66.3 kg (146 lb 2.6 oz) 09/12/2021 4:16 A M EDT Height 177.8 cm (5' 10 ) 09/05/2021 2:46 PM EDT Body Mass Index 20.97 09/05/2021 2:46 PM EDT Plan of Treatment Health Maintenance Due Date Last Done Comments Depression Monitoring 1972 HIV screen 09/29/1975 Hepatitis C screen 1978 DTaP/Tdap/Td vaccine (1 - Tdap) 09/29/1979 Pneumococcal 50+ years Vaccine (1 of 2 - PCV) 09/29/1979 Colonoscopy 2005 Colorectal Cancer Screen 2005 FIT/FOBT: Average risk 2005 Fecal-DNA (Cologuard): Average risk 2005 Sigmoidoscopy/CT colonography 2005 Shingles vaccine (1 of 2) 2010 Respiratory Syncytial Virus (RSV) or age 60 yrs+ (1 - Risk 60-74 years 1-dose series) 2020 Lung Cancer Screening &/or Counseling 09/10/2022 09/10/2021 Lipids 09/11/2022 09/11/2021, 06/2012, 08/22/2011, Additional history exists A1C test (Diabetic or Prediabetic) 09/12/2022 09/12/2021, 03/09/2012, 02/15/2011 COVID-19 Vaccine ( season) 2023 01/29/2021 Flu vaccine (Season Ended) 10/04/202412/20, 01/21/2020, 01/29/2018 Prostate Specific Antigen (PSA) Screening or Monitoring Discontinued 08/22/2011 Hepatitis A vaccine Aged Out No longe r eligible based on patient's age to complete this topic Hepatitis B vaccine Aged Out No longe r eligible based on patient's age to complete this topic Hib vaccine Aged Out No longer eligi ble based on patient's age to complete this topic Meningococcal (ACWY) vaccine Aged Out No longer eligible based on patient's age to complete this topic Meningococcal B vaccine Aged Out No l onger eligible based on patient's age to complete this topic Polio vaccine Aged Out No longer elig ible based on patient's age to complete this topic Procedures Procedure Name Priority Date/Time Associated Diagnosis Comments HEMOGLOBIN A1C Add-On 09/12/2021 4:43 AM EDT LIPID PANEL Routine 09/11/2021 4:[address] CHEST WO CONTRAST Routine 09/10/2021 3:04 PM EDT PSA SCREENING Routine 08/22/2011 7:26 AM EDT from Last 3 Months or Most Recently Relevant to Health Maintenance Results * Hemoglobin A1C (09/12/2021 4:43 AM EDT) Hemoglobin A1C 5.8 4.0 - 6.0 % 09/12/2021 4:43 AM EDT [employer] Estimated Avg Glucose 120 mg/dL 09/12/2021 4:43 AM EDT [employer] Comment: The ADA and AACC recommend providing the estimated average glucose result to permit better patient understanding of their HBA1c result. BLOOD SPECIMEN / Unknown 09/12/2021 4:43 AM EDT 09/12/2021 9:41 AM EDT us Mihaela Carrasco MD CHEMISTRY ORDERABLES Final Resu lt [facility] [address] [place] [address], [facility] [phone] [facility] [employer] [address] [id number], [facility] [phone] * (ABNORMAL) Lipid Panel (09/11/2021 4:53 AM EDT) Cholesterol 91 <200 mg/dL 09/11/2021 4:53 AM EDT [facility] Comment: Cholesterol Guidelines: <200 Desirable 200-240 Borderline >240 Undesirable HDL 30(L) >40 mg/dL 09/11/2021 4:53 AM EDT [facility] Comment: HDL Guidelines: <40 Undesirable 40-59 Borderline >59 Desirable LDL Cholesterol 41 0 - 130 mg/dL 09/11/2021 4:53 AM EDT [facility] Comment: LDL Guidelines: <100 Desirable 100-129 Near to/above Desirable 130-159 Borderline >159 Undesirable Direct (measured) LDL and calculated LDL are not interchangeable tests. Chol/HDL Ratio 3.0 <5 09/11/2021 4:53 AM EDT [facility] Comment: Triglycerides 100 <150 mg/dL 09/11/2021 4:53 AM EDT [facility] Comment: Triglyceride Guidelines: <150 Desirable 150-199 Borderline 200-499 High >499 Very high Based on AHA Guidelines for fasting triglyceride, December 2011. 09/11/2021 4:53 AM EDT 09/11/2021 4:54 AM EDT us Yoselin Whitfield MD CHEMISTRY ORDERABLES Final Re sult [facility] [address] [phone] * CT CHEST WO CONTRAST (09/10/2021 3:04 PM EDT) Anatomical Region Laterality Modality Chest Computed Tomogra phy 09/10/2021 3:07 PM EDT Impressions 09/12/2021 9:39 PM EDT 1. Persistent moderate partially loculated left pleural effusion with worsening atelectasis/consolidation involving the left lower lobe and lingula when compared to 09/05/2021. No pneumothorax. 2. New multifocal ground-glass opacities within the lungs bilaterally suspicious for pneumonia. An atypical or viral pneumonia is not excluded. Aspiration can be a consideration. 3. Mildly dilated and fluid-filled esophagus with mild distal esophageal wall thickening and paraesophageal stranding. Findings may reflect esophagitis in the appropriate clinical setting, and can be correlated with any clinical history of achalasia. 4. Hepatic steatosis. 5. Hyperdense right perihepatic fluid as well as multiple fluid collections are noted in the upper abdomen, better characterized on earlier MRI. Narrative 09/12/2021 9:39 PM EDT EXAMINATION: CT OF THE CHEST WITHOUT CONTRAST 09/10/2021 3:04 pm TECHNIQUE: CT of the chest was performed without the administration of intravenous contrast. Multiplanar reformatted images are provided for review. Automated exposure control, iterative reconstruction, and/or weight based adjustment of the mA/kV was utilized to reduce the radiation dose to as low as reasonably achievable. COMPARISON: Ultrasound and chest radiograph from today; MRI 09/10/2021, CT chest 09/05/2021 HISTORY: ORDERING SYSTEM PROVIDED HISTORY: check for loculated effusion and hydropneumothorax TECHNOLOGIST PROVIDED HISTORY: check for loculated effusion and hydropneumothorax Reason for Exam: check for loculated effusion and hydropneumothorax Follow-up exam FINDINGS: Mediastinum: The heart size is within normal limits. The thoracic aorta is normal in caliber with mild atherosclerosis. The main pulmonary artery is normal in caliber. Coronary arterial calcifications. The esophagus is diffusely dilated and fluid-filled with mild wall thickening at the GE junction. There is mild periesophageal stranding in the distal esophagus as well. Mild subcarinal adenopathy with a lymph node measuring up to 1.1 cm in short axis, likely reactive. Lungs/pleura: Persistent moderate left pleural effusion which is likely partially loculated. Small right pleural effusion is not significantly changed. There is worsening atelectasis versus consolidation of the left lower lobe as well as lingula with slight interval improvement in the right lower lobe atelectasis. Increasing ground-glass opacities within the bilateral upper lobes and right middle lobe. The central airways are otherwise patent. Diffuse bronchial wall thickening without significant bronchiectasis. No pneumothorax. Upper Abdomen: Please refer to dedicated MRI from today for full details. The liver is diffusely low in attenuation. Inflammatory changes are noted throughout the upper abdomen with fluid collections noted along the left liver and caudate lobe, and more hyperdense fluid along the right perihepatic region. Cholelithiasis. There is also a collection along the lesser curvature of the stomach measuring 9 x 6 cm. Soft Tissues/Bones: No acute findings in the bones or soft tissues. Orthopedic hardware is partially visualized in the cervical spine. Stable superior endplate compression deformities of T10-T12. Deformity of the inferior sternum which may related to prior trauma. Procedure Note Hollie Angulo MD - 09/12/2021 EXAMINATION: CT OF THE CHEST WITHOUT CONTRAST 09/10/2021 3:04 pm TECHNIQUE: CT of the chest was performed without the administration of intravenous contrast. Multiplanar reformatted images are provided for review.Automated exposure control, iterative reconstruction, and/or weight based adjustmentof the mA/kV was utilized to reduce the radiation dose to as low asreasonably achievable. COMPARISON: Ultrasound and chest radiograph from today; MRI 09/10/2021, CT chest09/05/2021 HISTORY: ORDERING SYSTEM PROVIDED HISTORY: check for loculated effusion and hydropneumothorax TECHNOLOGIST PROVIDED HISTORY: check for loculated effusion and hydropneumothorax Reason for Exam: check for loculated effusion and hydropneumothorax Follow-up exam FINDINGS: Mediastinum: The heart size is within normal limits. The thoracic aortais normal in caliber with mild atherosclerosis. The main pulmonary arteryis normal in caliber. Coronary arterial calcifications. The esophagus is diffusely dilated and fluid-filled with mild wallthickening at the GE junction. There is mild periesophageal stranding in thedistal esophagus as well. Mild subcarinal adenopathy with a lymph node measuringup to 1.1 cm in short axis, likely reactive. Lungs/pleura: Persistent moderate left pleural effusion which is likely partially loculated. Small right pleural effusion is not significantly changed. There is worsening atelectasis versus consolidation of theleft lower lobe as well as lingula with slight interval improvement in theright lower lobe atelectasis. Increasing ground-glass opacities within the bilateral upper lobes and right middle lobe. The central airways are otherwise patent. Diffuse bronchial wall thickening without significant bronchiectasis. No pneumothorax. Upper Abdomen: Please refer to dedicated MRI from today for fulldetails. The liver is diffusely low in attenuation. Inflammatory changes arenoted throughout the upper abdomen with fluid collections noted along the left liver and caudate lobe, and more hyperdense fluid along the rightperihepatic region. Cholelithiasis. There is also a collection along the lesser curvature of the stomach measuring 9 x 6 cm. Soft Tissues/Bones: No acute findings in the bones or soft tissues. Orthopedic hardware is partially visualized in the cervical spine.Stable superior endplate compression deformities of T10-T12. Deformity of the inferior sternum which may related to prior trauma. IMPRESSION: 1. Persistent moderate partially loculated left pleural effusion with worsening atelectasis/consolidation involving the left lower lobe andlingula when compared to 09/05/2021. No pneumothorax. 2. New multifocal ground-glass opacities within the lungs bilaterally suspicious for pneumonia. An atypical or viral pneumonia is notexcluded. Aspiration can be a consideration. 3. Mildly dilated and fluid-filled esophagus with mild distal esophagealwall thickening and paraesophageal stranding. Findings may reflect esophagitisin the appropriate clinical setting, and can be correlated with anyclinical history of achalasia. 4. Hepatic steatosis. 5. Hyperdense right perihepatic fluid as well as multiple fluidcollections are noted in the upper abdomen, better characterized on earlier MRI. Amaris Juarez MD IMG CT ORDERABLES Final Re sult * Psa screening (08/22/2011 7:26 AM EDT) [facility] PSA 0.70 0.0 - 4.0 ug/L [facility] Comment: Testing performed on [employer] CP Performed at [address] [place] [address] 08/22/2011 7:26 AM EDT 08/22/2011 7:27 AM EDT Len Aguilera MD CHEMISTRY ORDERABLES Vonnie l Result [facility] from Last 3 Months or Most Recently Relevant to Health Maintenance Additional Health Concerns Infection Onset Date Last Indicated C-diff (Clostridium difficile) 09/06/2021 0 09/06/[address] [facility] Advance Directives Documents on File Type Date Recorded Patient Computer Programmer Analyst Expl anation ACP-Do Not Resuscitate 02/01/2021 1:07 PM * DNR-CCA (Latest Code Status on File) Date Activated Date Inactivated Comments 09/10/2021 4:49 PM 09/17/2021 9:26 PM * DNR-CCA Date Activated Date Inactivated Comments 09/10/2021 4:49 PM 09/10/2021 4:49 PM * DNR-CCA Date Activated Date Inactivated Comments 09/04/2021 12:07 PM 09/10/2021 4:49 PM * DNR-CCA Date Activated Date Inactivated Comments 09/04/2021 11:36 AM 09/04/2021 12:00 PM * DNR-CCA Date Activated Date Inactivated Comments 08/29/2021 4:48 PM 09/04/2021 11:23 AM Care Teams Experimental Electronics Developer Relationship Specialty Start Date End Date Oswaldo Turpin, [address] [facility] [address] [place] [address] PCP - General Family Medicine 01/18/21
--- OUTSIDE RECORDS SUMMARY | 2024-08-28 12:39 | XMS_ITS | Encounter Summary ---
Author Organization [facility] [employer] Address [id number] [address] [place] [address] Care Team Providers Care Relations Mgr Name Role Phone Sebastián Boyer DO Primary Care Provider Encounter Details Date Type Department Care Team (Late st Contact Info) Description 08/28/2024 Orders Only [facility] [employer] [facility] [place] [address] Transcribe, Orders Support User Pain (Primary Dx) Social History Tobacco Use Types Packs/Day Years Used Date Smoking Tobacco: Every Day Cigarettes 2 25 Comments:smokes 3-4 cigarret es occasionally at [facility] Childcare Answer Date Recorded Childcare [...] pt spouse plan is to return to [facility] at [place] documented as of this encounter Results * CT brain without contrast (08/24/2024 11:30 PM EDT) us Scanning Provider External IMG CT ORDERABLES Fin al Result * CT cervical spine without contrast (08/24/2024 11:25 PM EDT) us Scanning Provider External IMG CT ORDERABLES Fin al Result * CT brain without contrast (08/24/2024 2:45 PM EDT) us Scanning Provider External IMG CT ORDERABLES Fin al Result documented in this encounter Visit Diagnoses Diagnosis Pain- Primary Generalized pain documented in this encounter Care Teams Relations Mgr Relationship Specialty Start Date End Date Sebastián Boyer DO [address] [place] [address] PCP - General Family Medicine 08/26/24 documented as of this encounter
--- OUTSIDE RECORDS SUMMARY | 2024-08-28 12:39 | XMS_ITS | Encounter Summary ---
Author Organization [employer] Address [id number] [address] [place] [address] Care Team Providers Care Printed Circuit Designer Name Role Phone Sebastián Boyer DO Primary Care Provider [phone] Reason for Referral * Diagnostic Imaging (Routine) - Pending Review Specialty Diagnoses / Procedures Referred By Contac t Referred To Contact Radiology Diagnoses Pain Procedures CT brain without contrast stroke alert [facility] [employer] [facility] [address] [place] [phone] Phone: tel: fax: Referral ID Status Reason Start Date Expiration Date V isits Requested Visits Authorized [id number] Pending Review 08/30/2023 08/29/2024 1 1 * Diagnostic Imaging (Routine) - Pending Review Specialty Diagnoses / Procedures Referred By Contac t Referred To Contact Radiology Diagnoses Pain Procedures CT angiogram head [facility] [employer] [address] [place] [phone] Phone: tel: fax: Referral ID Status Reason Start Date Expiration Date V isits Requested Visits Authorized [id number] Pending Review 08/30/2023 08/29/2024 1 1 * Diagnostic Imaging (Routine) - Pending Review Specialty Diagnoses / Procedures Referred By Contac t Referred To Contact Radiology Diagnoses Pain Procedures CT angiogram carotid [facility] [employer] [address] [place] [phone] Phone: tel: fax: Referral ID Status Reason Start Date Expiration Date V isits Requested Visits Authorized [id number] Pending Review 08/30/2023 08/29/2024 1 1 * Diagnostic Imaging (Routine) - Pending Review Specialty Diagnoses / Procedures Referred By Contac t Referred To Contact Radiology Diagnoses Pain Procedures CT angiogram head [facility] [employer] [address] [place] [phone] Phone: tel: fax: Referral ID Status Reason Start Date Expiration Date V isits Requested Visits Authorized [id number] Pending Review 08/30/2023 08/29/2024 1 1 * Diagnostic Imaging (Routine) - Pending Review Specialty Diagnoses / Procedures Referred By Contac t Referred To Contact Radiology Diagnoses Acute chest pain Procedures CT angiogram chest [facility] [employer] [address] [place] [phone] Phone: tel: fax: Referral ID Status Reason Start Date Expiration Date V isits Requested Visits Authorized [id number] Pending Review 08/30/2023 08/29/2024 1 1 * Diagnostic Imaging (Routine) - Pending Review Specialty Diagnoses / Procedures Referred By Contac t Referred To Contact Radiology Diagnoses Pain Procedures CT angiogram abdomen and pelvis [facility] [employer] [facility] [address] [place] [phone] Phone: tel: fax: Referral ID Status Reason Start Date Expiration Date V isits Requested Visits Authorized [id number] Pending Review 08/30/2023 08/29/2024 1 1 Encounter Details Date Type Department Care Team (Late st Contact Info) Description 08/30/2023 Orders Only [facility] [employer] [address] [place] [phone] Transcribe, Orders Support User Pain (Primary Dx); Acute chest pain Social History Tobacco Use Types Packs/Day Years Used Date Smoking Tobacco: Every Day Cigarettes 2 25 Comments:smokes 3-4 cigarret es occasionally at [facility] Childcare Answer Date Recorded Childcare [...] pt spouse plan is to return to [facility] at [facility]. documented as of this encounter Results * CT angiogram head (08/29/2023 4:40 PM EDT) us Scanning Provider External IMG CT ORDERABLES Fin al Result * CT angiogram carotid (08/29/2023 4:35 PM EDT) us Scanning Provider External IMG CT ORDERABLES Fin al Result * CT angiogram chest (08/29/2023 4:30 PM EDT) us Scanning Provider External IMG CT ORDERABLES Fin al Result * CT angiogram abdomen and pelvis (08/29/2023 4:25 PM EDT) us Scanning Provider External IMG CT ORDERABLES Fin al Result * CT angiogram head (08/29/2023 4:20 PM EDT) us Scanning Provider External IMG CT ORDERABLES Fin al Result * CT brain without contrast stroke alert (08/29/2023 4:15 PM EDT) us Scanning Provider External IMG CT ORDERABLES Fin al Result documented in this encounter Visit Diagnoses Diagnosis Pain- Primary Generalized pain Acute chest pain Unspecified chest pain documented in this encounter Care Teams Printed Circuit Designer Relationship Specialty Start Date End Date Sebastián Boyer DO [address] [place] [id number] PCP - General Family Medicine 08/26/24 documented as of this encounter
--- OUTSIDE RECORDS SUMMARY | 2024-08-28 12:39 | XMS_ITS | Clinical Summary ---
Author Organization [employer] s tem Address [id number] [address] [place] [address] Care Team Providers Care Satellite Manager Name Role Phone Sebastián Boyer DO Primary Care Provider Allergies Active Allergy Reactions Criticality Noted Date Comments Morphine (Pf) 10/08/2021 Danielle KRISHNAMURTHY RN does not know what type of reaction pt has to morphine Medications aspirin 81 mg Take 81 mg by mouth in the morning. Active atorvastatin (LIPITOR) 10 mg tablet Take 10 mg by mouth in the morning. Active lipase-protease -amylase (CREON) 24,000-76,000 -120,000 unit capsule,delayed release(DR/EC) Take 24,000 units of lipase by mouth 3 (three) times a day with meals. Active DULoxetine (CYMBALTA) 60 mg capsule Take 60 mg by mouth in the morning. Active tamsulosin (FLOMAX) 0.4 mg capsule Take 0.4 mg by mouth in the morning. Active fluticasone propionate (FLONASE) 50 mcg/actuation nasal spray Administer 1 spray into each nostril daily. Active folic acid (FOLVITE) 1 mg tablet Take 1 mg by mouth in the morning. Active ipratropium-alb uteroL (DUONEB) 0.5 mg-3 mg(2.5 mg base)/3 mL nebulizer Inhale 3 mL by nebulization 4 (four) times a day. Active levothyroxine (SYNTHROID, LEVOTHROID) 25 MCG tablet Take 25 mcg by mouth in the morning. Active lacosamide (VIMPAT) 100 mg tablet Take 100 mg by mouth 2 (two) times a day as needed. Active thiamine HCl (vitamin B-1) 100 mg tablet Take 100 mg by mouth in the morning. Active magnesium oxide (MAGOX) 400 mg tablet Take 1 tablet (400 mg total) by mouth in the morning and 1 tablet (400 mg total) before bedtime. 2 Active cholecalciferol (VITAMIN D3) 1,000 units tablet Take 1 tablet (1,000 Units total) by mouth in the morning. 0 2 Active calcium carbonate 400 mg (1,000 mg) tablet,chewable Chew 1 tablet (400 mg total) and swallow in the morning and 1 tablet (400 mg total) in the evening. Chew with meals. 0 2 Active magnesium oxide (MAGOX) 400 mg tablet Take 1 tablet (400 mg total) by mouth in the morning and 1 tablet (400 mg total) before bedtime. 2 Active metoprolol tartrate (LOPRESSOR) 50 mg tablet Take 1 tablet (50 mg total) by mouth in the morning and 1 tablet (50 mg total) before bedtime. 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 22 History of Clostridioides difficile colitis 07/2021 Acute midline low back pain without sciatica 07/2021 Encounters Date Type Department Care Team Description 08/28/2024 Orders Only [facility] [place] [address] Transcribe, Orders Support User Pain (Primary Dx) 08/27/2024 Orders Only [facility] [place] [address] External, Scanning Provider Pain (Primary Dx) 08/26/2024 12:20 PM EDT - Present Emergency [facility] [address] [place] [phone] 08/24/2024 11:30 PM EDT Ancillary Procedure [facility] [place] [address] Pain 08/24/2024 11:25 PM EDT Ancillary Procedure [facility] [place] [address] Pain 08/24/2024 2:45 PM EDT Ancillary Procedure [facility] [place] [address] Pain 07/31/2024 3:10 AM EDT Ancillary Procedure [facility] [address] [place] [phone] Pain 07/31/2024 3:05 AM EDT Ancillary Procedure [facility] [address] [place] [id number] Pain from Last 3 Months Social History Tobacco Use Types Packs/Day Years Used Date Smoking Tobacco: Every Day Cigarettes 2 25 Comments:smokes 3-4 cigarret es occasionally at [facility] Childcare Answer Date Recorded Childcare Unknown 08/13/2018 Employment Answer Date Recorded Employment Unknown 08/13/2018 Sex and Gender Information Value Date Recorded Sex Assigned at Not on file Legal Sex Male 4:32 PM EDT Gender Identity Not on file Sexual Orientation Not on file Last Filed Vital Signs Vital Sign Reading Time Taken Comments Blood Pressure 130/80 10/14/2021 7:13 AM EDT Pulse 75 10/14/2021 8:02 AM EDT Temperature 36.6 C (97.8 F) 10/14/2021 7:13 AM EDT Respiratory Rate 16 10/14/2021 8:02 AM EDT Oxygen Saturation 100% 10/14/2021 8:02 AM EDT Inhaled Oxygen Concentration - - Weight 53.5 kg (117 lb 14.4 oz) 10/14/2021 5:40 AM EDT Height 177.8 cm (5' 10 ) 10/08/2021 3:07 PM EDT Body Mass Index 16.92 10/08/2021 3:07 PM EDT Plan of Treatment Health Maintenance Due Date Last Done Comments Depression Screening 1972 Tobacco Screening 1972 Zoster (Shingles) Vaccine (1 of 2) 2010 Adult BMI Screening 10/14/2022 10/14/2021 COVID-19 Vaccine ( - 2023-2 5 season) 2023 01/29/2021 Influenza Vaccine 11/04/2024 12/20/2020, , 01/29/2018 DTaP,Tdap and Td Vaccines (2 - Td or Tdap) 07/31/2034 07/31/2024 Goals Goal Patient Goal Type Associated Problems Recent Progress Patient-Stated? Author SNF return General Yes Swetha Yi LSW Note: Evaluation of progress towards goal: Per phone conversation with pt spouse plan is to return [facility] Medical Devices Not on file Procedures * The patient is currently admitted. The information in this section might not be complete until the patient is discharged. Procedure Name Priority Date/Time Associated Diagnosis Comments CT BRAIN WO CONT Routine 08/24/2024 11:[address] CERVICAL SPINE WO CONT Routine 08/24/2024 11:[address] BRAIN WO CONT Routine 08/24/2024 2:[address] CTA CAROTID Routine 07/31/2024 3:[address] CTA HEAD Routine 07/31/2024 3:05 AM EDT Pain from Last 3 Months Results * CT brain without contrast (08/24/2024 11:30 PM EDT) Only the most recent of2 resultswithin the time period is included. us Scanning Provider External IMG CT ORDERABLES Fin al Result * CT cervical spine without contrast (08/24/2024 11:25 PM EDT) us Scanning Provider External IMG CT ORDERABLES Fin al Result * CT angiogram carotid (07/31/2024 3:10 AM EDT) us Scanning Provider External IMG CT ORDERABLES Fin al Result * CT angiogram head (07/31/2024 3:05 AM EDT) us Scanning Provider External IMG CT ORDERABLES Fin al Result from Last 3 Months Insurance [employer] MEDICARE Advance Directives Documents on File Type Date Recorded Patient Quality Checker Expl anation DNR Physician Order 10/26/2021 8:52 AM Advance Directive 10/08/2021 10:43 AM DNR C C 10/08/2021 Advance Directive 10/03/2021 3:29 PM DNR * DNR Comfort Care Arrest (DNR-CCA) [place] (Latest Code Status on File) Date Activated Date Inactivated Comments 10/09/2021 1:13 PM 10/14/2021 4:39 PM Care Teams Satellite Manager Relationship Specialty Start Date End Date Sebastián Boyer DO [address] [place] [address] PCP - General Family Medicine 08/26/24
--- OUTSIDE RECORDS SUMMARY | 2024-08-28 12:39 | XMS_ITS | Encounter Summary ---
Author Organization [facility] Address [address] [place] [address] Phone Care Team Providers Care Engineer Station Mainline Name Role Phone Oswaldo Turpin DO Primary Care Provider [phone] Dione Talavera RN Unavailable Unavailable Dione Talavera RN Unavailable Unavailable Oswaldo Turpin DO Primary Care Provider [phone] Encounter Details Date Type Department Care Team (Late st Contact Info) Description 09/29/2023 Scanned Document [facility] [address] [place] [phone] Scanning, Generic Provider Social History Tobacco Use [...] Info) Description 09/16/2024 2:30 PM EDT Appointment [address] [phone] 09/16/2024 3:00 PM EDT Appointment [place] [address] [place] [phone] 09/23/2024 9:30 AM EDT Office Visit [address] [phone] Deepika Dawn, DIE MAKER STAMPING-HABILITATION SPECIALIST [address] [place], [place] [phone] documented as of this encounter Procedures Procedure Name Priority Date/Time Associated Diagnosis Comments OUTSIDE IMAGING SCAN 09/29/2023 documented in this encounter Results * OUTSIDE IMAGING SCAN (09/29/2023) Anatomical Region Laterality Modality Other Narrative 09/29/2023 Ordered by an unspecified provider. us Generic Provider Scanning OUTSIDE SCAN Final Result documented in this encounter Visit Diagnoses Not on filedocumented in this encounter Care Teams Engineer Station Mainline Relationship Specialty Start Date End Date Oswaldo Turpin DO PCP - General 01/30/19 03/27/24 Oswaldo Turpin DO [address] [place] [address] PCP - General Family Medicine 03/28/24 Dione Talavera, plastic duplicatorElectrolog Operator 10/02/23 10/17/23 Dione Talavera RN Care Electrolog Operator 10/24/23 11/23/23 documented as of this encounter
--- OUTSIDE RECORDS SUMMARY | 2024-08-28 12:39 | XMS_ITS | Encounter Summary ---
Author Organization [facility] Address [address] [place] [address] Phone Care Team Providers Care Hvac Service Manager Name Role Phone Oswaldo Turpin DO Primary Care Provider [phone] Dione Talavera RN Unavailable Unavailable Dione Talavera RN Unavailable Unavailable Oswaldo Turpin DO Primary Care Provider [phone] Encounter Details Date Type Department Care Team (Late st Contact Info) Description 08/30/[address] [facility] [address] [place] [phone] Scanning, Generic Provider Social History Tobacco Use [...] Info) Description 09/16/2024 2:30 PM EDT Appointment [address] [phone] 09/16/2024 3:00 PM EDT Appointment [place] [address] [place] [phone] 09/23/2024 9:30 AM EDT Office Visit [address] [phone] Deepika Dawn, PIPE BUFFER-RENEWAL SPECIALIST [address] [place], [place] [phone] documented as of this encounter Visit Diagnoses Not on filedocumented in this encounter Care Teams Hvac Service Manager Relationship Specialty Start Date End Date Oswaldo Turpin DO PCP - General 01/30/19 03/27/24 Oswaldo Turpin DO [address] [place] [address] PCP - General Family Medicine 03/28/24 Dione Talavera, furnace keeperFinishing Range Operator 10/02/23 10/17/23 Dione Talavera, furnace keeperFinishing Range Operator 10/24/23 11/23/23 documented as of this encounter
--- OUTSIDE RECORDS SUMMARY | 2024-08-28 12:39 | XMS_ITS | Patient Health Record ---
Author Organization [facility] in [place] Address [address] [place] [address] Care Team Providers Care [employer]her Name Role Phone Oswaldo Turpin DO Primary Care Provider Unavailabl e Allergies No Known Allergies Results Component Value Reference Range Notes MAGNESIUM Reviewed date:08/25/2024 12:08:15 PM Interpretation: Performing Lab: Notes/Report: [facility] , Magnesium 0.4 1.8-2.4 mg/dL RESULTS CALLED TO NICOLE WATERS RN at 3162 Performing Lab: see note ML - [facility] LB T4 Reviewed date:08/25/2024 12:08:15 PM Interpretation: Performing Lab: Notes/Report: [facility] , T4 Thyroxine 7.50 4.50-12.10 ug/dL Performing Lab: see note ML - [facility] LB TSH Reviewed date:08/25/2024 12:08:15 PM Interpretation: Performing Lab: Notes/Report: [facility] , Thyroid Stimulating Hormone 1.778 0.358-3.740 uIU/mL Performing Lab: see note ML - [facility] LB MAGNESIUM Reviewed date:08/25/2024 12:08:15 PM Interpretation: Performing Lab: Notes/Report: [facility] , Magnesium 0.5 1.8-2.4 mg/dL RESULTS CALLED TO JUAN J KILGORE RN at 2112 Performing Lab: see note ML - [facility] LB BNP Reviewed date:08/25/2024 12:08:15 PM Interpretation: Performing Lab: Notes/Report: [facility] , NT Pro B Type Natriuretic Pept 942.0 <=900.0 pg/mL Performing Lab: see note ML - [facility] LB CBC AUTO DIFF Reviewed date:08/25/2024 12:08:15 PM Interpretation: Performing Lab: Notes/Report: [facility] , White Blood Count 8.9 4.0-11.0 10 3/uL Red Blood Count 3.82 4.70-6.10 10 6/uL Hemoglobin 8.4 14.0-18.0 g/dL Hematocrit 28.2 42.0-54.0 % Mean Corpuscular Volume 73.8 80.0-94.0 fL Mean Corpuscular Hemoglobin 22.0 25.9-34.0 pg Mean Corpuscular HGB Conc 29.8 29.9-35.2 g/dL Red Cell Distribution Width 20.5 11.0-15.0 % Platelet Count 383 150-450 10 3/uL Mean Platelet Volume 10.8 9.5-13.5 fL Neutrophils Percent Auto 68.6 43.0-75.0 % Lymphocytes Percent Auto 17.3 20.5-60.0 % Monocytes Percent Auto 11.5 1.7-12.0 % Eosinophils Percent Auto 2.0 0.9-7.0 % Basophils Percent Auto 0.4 0.2-2.0 % Immature Granulocytes Pct Auto 0.2 0.0-0.5 % Neutrophils Absolute Auto 6.1 1.4-6.5 10 3/uL Lymphocytes Absolute Auto 1.5 1.2-3.8 10 3/uL Monocytes Absolute Auto 1.0 0.3-0.8 10 3/uL Eosinophils Absolute Auto 0.2 0.0-0.7 10 3/uL Basophils Absolute Auto 0.0 0.0-0.1 10 3/uL Immature Granulocytes Abs Auto 0.02 0.00-0.03 10 3/uL Performing Lab: see note ML - [facility] LB MAGNESIUM Reviewed date:08/25/2024 12:08:15 PM Interpretation: Performing Lab: Notes/Report: [facility] , Magnesium 2.1 1.8-2.4 mg/dL Performing Lab: see note - [facility] LB PROF 14(COMP METB) Reviewed date:08/25/2024 12:08:15 PM Interpretation: Performing Lab: Notes/Report: [facility] , Sodium 139 136-145 mmol/L Potassium 2.9 3.5-5.1 mmol/L RESULTS CABEZAS D TO mones boucher rn Chloride 104 98-107 mmol/L Carbon Dioxide 22.6 21.0-32.0 mmol/L Anion Gap 15.3 Glucose 96 74-106 mg/dL Blood Urea Nitrogen 7.0 7.0-18.0 mg/dL Creatinine 0.81 0.70-1.30 mg/dL Estimated GFR ( Gabrielle >60 >=60 mL/min/1.73m 2 Estimated GFR (Non- Bailey >60 >=60 mL/min/1.73m 2 BUN Creatinine Ratio 8.6 Calcium 7.8 8.5-10.1 mg/dL Bilirubin Total 0.4 0.2-1.0 mg/dL Aspartate Amino Transferase 21 15-37 U/L Alanine Aminotransferase 33 16-63 U/L Alkaline Phosphatase 110 46-116 U/L Total Protein 6.2 6.4-8.2 g/dL Albumin Level 2.9 3.4-5.0 g/dL Globulin 3.3 Albumin Globulin Ratio 0.9 Performing Lab: see note ML - [facility] LB PTT Reviewed date:08/25/2024 12:08:15 PM Interpretation: Performing Lab: Notes/Report: [facility] , Partial Thromboplastin Time 24.9 22.3-36.2 sec Performing Lab: see note - [facility] LB Prothrombin Time INR Reviewed date:08/25/2024 12:08:15 PM Interpretation: Performing Lab: Notes/Report: [facility] , Prothrombin Time 11.1 9.0-11.6 sec INR 1.05 DESIRED INR: 2.0-3.0 CONDITIONS NOT LISTED BELOW 2.5-3.5 FOR PROSTHETIC HEART VALVE REPLACEMENT 2.5-3.5 RECURRENT THROMBOSIS Performing Lab: see note ML - [facility] Troponin I High Sensitivity Reviewed date:08/25/2024 12:08:15 PM Interpretation: Performing Lab: Notes/Report: [facility] , Troponin I High Sensitivity 25.8 4.0-76.1 pg/mL CUT-OFF POINTS HAVE BEEN ESTABLISHED BASED ON THE FOURTH UNIVERSAL DEFINITION OF MYOCARDIAL INFARCTION. THE UPPER REFERENCE LIMIT (URL) OF TROPONIN, DEFINED THE 99TH PERCENTILE OF cTnI DISTRIBUTION IN A REFERENCE POPULATION, HAS BEEN CONFIRMED THE DECISION THRESHOLD FOR [place] DIAGNOSIS. 99TH PERCENTILE = 76.2 PG/ML NOTE: HIGH-SENSITIVITY TROPONIN ASSAY IS NOT INTENDED TO BE USED IN ISOLATION BUT SHOULD BE INTERPRETED IN CONJUNCTION WITH OTHER DIAGNOSTIC AND CLINICAL INFORMATION. Performing Lab: see note - [facility] LB Occult Blood* Reviewed date:08/25/2024 12:08:15 PM Interpretation: Performing Lab: Notes/Report: [facility] , Occult Blood Negative Performing Lab: see note - [facility] LB BNP Reviewed date:08/26/2024 06:38:59 PM Interpretation: Performing Lab: Notes/Report: [facility] , NT Pro B Type Natriuretic Pept 924.0 <=900.0 pg/mL Performing Lab: see note - [facility] LB CBC AUTO DIFF Reviewed date:08/26/2024 06:38:59 PM Interpretation: Performing Lab: Notes/Report: [facility] , White Blood Count 7.3 4.0-11.0 10 3/uL Red Blood Count 3.15 4.70-6.10 10 6/uL Hemoglobin 6.8 14.0-18.0 g/dL RESULTS CALLED TO JOSE MARIA ESCAMILLA RN @BY Pavithra England at 0628 Hematocrit 22.4 42.0-54.0 % RESULTS CALLED TO JOSE MARIA ESCAMILLA RN @BY Pavithra England at 0628 Mean Corpuscular Volume 71.1 80.0-94.0 fL Mean Corpuscular Hemoglobin 21.6 25.9-34.0 pg Mean Corpuscular HGB Conc 30.4 29.9-35.2 g/dL Red Cell Distribution Width 20.4 11.0-15.0 % Platelet Count 316 150-450 10 3/uL Mean Platelet Volume 10.7 9.5-13.5 fL Neutrophils Percent Auto 77.4 43.0-75.0 % Lymphocytes Percent Auto 12.2 20.5-60.0 % Monocytes Percent Auto 10.0 1.7-12.0 % Eosinophils Percent Auto 0.0 0.9-7.0 % Basophils Percent Auto 0.1 0.2-2.0 % Immature Granulocytes Pct Auto 0.3 0.0-0.5 % Neutrophils Absolute Auto 5.7 1.4-6.5 10 3/uL Lymphocytes Absolute Auto 0.9 1.2-3.8 10 3/uL Monocytes Absolute Auto 0.7 0.3-0.8 10 3/uL Eosinophils Absolute Auto 0.0 0.0-0.7 10 3/uL Basophils Absolute Auto 0.0 0.0-0.1 10 3/uL Immature Granulocytes Abs Auto 0.02 0.00-0.03 10 3/uL Performing Lab: see note ML - [facility] LB MAGNESIUM Reviewed date:08/26/2024 06:38:59 PM Interpretation: Performing Lab: Notes/Report: [facility] , Magnesium 1.4 1.8-2.4 mg/dL Performing Lab: see note ML - [facility] LB VANCOMYCIN TROUGH Reviewed date:08/26/2024 06:40:38 PM Interpretation: Performing Lab: Notes/Report: [facility] , Vancomycin Trough 15.4 5.0-20.0 ug/mL Performing Lab: see note ML - [facility] LB Troponin I High Sensitivity Reviewed date:08/26/2024 06:38:59 PM Interpretation: Performing Lab: Notes/Report: [facility] , Troponin I High Sensitivity 14.0 4.0-76.1 pg/mL CUT-OFF POINTS HAVE BEEN ESTABLISHED BASED ON THE FOURTH UNIVERSAL DEFINITION OF MYOCARDIAL INFARCTION. THE UPPER REFERENCE LIMIT (URL) OF TROPONIN, DEFINED THE 99TH PERCENTILE OF cTnI DISTRIBUTION IN A REFERENCE POPULATION, HAS BEEN CONFIRMED THE DECISION THRESHOLD FOR [place] DIAGNOSIS. 99TH PERCENTILE = 76.2 PG/ML NOTE: HIGH-SENSITIVITY TROPONIN ASSAY IS NOT INTENDED TO BE USED IN ISOLATION BUT SHOULD BE INTERPRETED IN CONJUNCTION WITH OTHER DIAGNOSTIC AND CLINICAL INFORMATION. Performing Lab: see note ML - [facility] LB BNP (Not yet reviewed by pro vider) Interpretation: Performing Lab: Notes/Report: [facility] , NT Pro B Type Natriuretic Pept 2577.0 <=900.0 pg/mL RESULTS CALLED TO []@BY Pavithra England at 0620 RESULTS CALLED TO JORDAN WU RN @BY Pavithra England at 0623 --- 08/27/24622 --- NT Pro BNP previously reported as: pg/mL RESULTS CALLED TO @BY Pavithra England at 0620 Performing Lab: see note ML - [facility] LB CBC AUTO DIFF (Not yet revie wed by provider) Interpretation: Performing Lab: Notes/Report: [facility] , White Blood Count 9.0 4.0-11.0 10 3/uL Red Blood Count 3.79 4.70-6.10 10 6/uL Hemoglobin 8.6 14.0-18.0 g/dL Hematocrit 28.2 42.0-54.0 % Mean Corpuscular Volume 74.4 80.0-94.0 fL Mean Corpuscular Hemoglobin 22.7 25.9-34.0 pg Mean Corpuscular HGB Conc 30.5 29.9-35.2 g/dL Red Cell Distribution Width 20.9 11.0-15.0 % Platelet Count 315 150-450 10 3/uL Mean Platelet Volume 10.6 9.5-13.5 fL Neutrophils Percent Auto 73.8 43.0-75.0 % Lymphocytes Percent Auto 16.9 20.5-60.0 % Monocytes Percent Auto 8.8 1.7-12.0 % Eosinophils Percent Auto 0.1 0.9-7.0 % Basophils Percent Auto 0.1 0.2-2.0 % Immature Granulocytes Pct Auto 0.3 0.0-0.5 % Neutrophils Absolute Auto 6.6 1.4-6.5 10 3/uL Lymphocytes Absolute Auto 1.5 1.2-3.8 10 3/uL Monocytes Absolute Auto 0.8 0.3-0.8 10 3/uL Eosinophils Absolute Auto 0.0 0.0-0.7 10 3/uL Basophils Absolute Auto 0.0 0.0-0.1 10 3/uL Immature Granulocytes Abs Auto 0.03 0.00-0.03 10 3/uL Performing Lab: see note ML - [facility] LB MAGNESIUM (Not yet reviewed by provider) Interpretation: Performing Lab: Notes/Report: [facility] , Magnesium 1.7 1.8-2.4 mg/dL Performing Lab: see note - [facility] LB PROF 14(COMP METB) (Not yet reviewed by provider) Interpretation: Performing Lab: Notes/Report: [facility] , Sodium 139 136-145 mmol/L Potassium 4.4 3.5-5.1 mmol/L Chloride 106 98-107 mmol/L Carbon Dioxide 22.9 21.0-32.0 mmol/L Anion Gap 14.5 Glucose 120 74-106 mg/dL Blood Urea Nitrogen 9.0 7.0-18.0 mg/dL Creatinine 0.95 0.70-1.30 mg/dL Estimated GFR ( Gabrielle >60 >=60 mL/min/1.73m 2 Estimated GFR (Non- Bailey >60 >=60 mL/min/1.73m 2 BUN Creatinine Ratio 9.5 Calcium 8.5 8.5-10.1 mg/dL Bilirubin Total 0.6 0.2-1.0 mg/dL Aspartate Amino Transferase 15 15-37 U/L Alanine Aminotransferase 30 16-63 U/L Alkaline Phosphatase 98 46-116 U/L Total Protein 6.4 6.4-8.2 g/dL Albumin Level 3.0 3.4-5.0 g/dL Globulin 3.4 Albumin Globulin Ratio 0.9 Performing Lab: see note ML - [facility] LB PTT (Not yet reviewed by pro vider) Interpretation: Performing Lab: Notes/Report: [facility] , Partial Thromboplastin Time 22.2 22.3-36.2 sec Performing Lab: see note ML - [facility] LB Prothrombin Time INR (Not ye t reviewed by provider) Interpretation: Performing Lab: Notes/Report: [facility] , Prothrombin Time 10.4 9.0-11.6 sec INR 0.98 DESIRED INR: 2.0-3.0 CONDITIONS NOT LISTED BELOW 2.5-3.5 FOR PROSTHETIC HEART VALVE REPLACEMENT 2.5-3.5 RECURRENT THROMBOSIS Performing Lab: see note ML - [facility] LB Troponin I High Sensitivity (Not yet reviewed by provider) Interpretation: Performing Lab: Notes/Report: [facility] , Troponin I High Sensitivity 13.7 4.0-76.1 pg/mL CUT-OFF POINTS HAVE BEEN ESTABLISHED BASED ON THE FOURTH UNIVERSAL DEFINITION OF MYOCARDIAL INFARCTION. THE UPPER REFERENCE LIMIT (URL) OF TROPONIN, DEFINED THE 99TH PERCENTILE OF cTnI DISTRIBUTION IN A REFERENCE POPULATION, HAS BEEN CONFIRMED THE DECISION THRESHOLD FOR [place] DIAGNOSIS. 99TH PERCENTILE = 76.2 PG/ML NOTE: HIGH-SENSITIVITY TROPONIN ASSAY IS NOT INTENDED TO BE USED IN ISOLATION BUT SHOULD BE INTERPRETED IN CONJUNCTION WITH OTHER DIAGNOSTIC AND CLINICAL INFORMATION. Performing Lab: see note ML - [facility] LB BNP (Not yet reviewed by pro vider) Interpretation: Performing Lab: Notes/Report: [facility] , NT Pro B Type Natriuretic Pept 747.0 <=900.0 pg/mL Performing Lab: see note ML - [facility] LB CBC AUTO DIFF (Not yet revie wed by provider) Interpretation: Performing Lab: Notes/Report: [facility] , White Blood Count 8.4 4.0-11.0 10 3/uL Red Blood Count 4.44 4.70-6.10 10 6/uL Hemoglobin 10.1 14.0-18.0 g/dL Hematocrit 33.2 42.0-54.0 % Mean Corpuscular Volume 74.8 80.0-94.0 fL Mean Corpuscular Hemoglobin 22.7 25.9-34.0 pg Mean Corpuscular HGB Conc 30.4 29.9-35.2 g/dL Red Cell Distribution Width 21.6 11.0-15.0 % Platelet Count 313 150-450 10 3/uL Mean Platelet Volume 9.9 9.5-13.5 fL Neutrophils Percent Auto 46.1 43.0-75.0 % Lymphocytes Percent Auto 36.3 20.5-60.0 % Monocytes Percent Auto 8.9 1.7-12.0 % Eosinophils Percent Auto 7.8 0.9-7.0 % Basophils Percent Auto 0.5 0.2-2.0 % Immature Granulocytes Pct Auto 0.4 0.0-0.5 % Neutrophils Absolute Auto 3.9 1.4-6.5 10 3/uL Lymphocytes Absolute Auto 3.1 1.2-3.8 10 3/uL Monocytes Absolute Auto 0.8 0.3-0.8 10 3/uL Eosinophils Absolute Auto 0.7 0.0-0.7 10 3/uL Basophils Absolute Auto 0.0 0.0-0.1 10 3/uL Immature Granulocytes Abs Auto 0.03 0.00-0.03 10 3/uL Performing Lab: see note ML - [facility] LB MAGNESIUM (Not yet reviewed by provider) Interpretation: Performing Lab: Notes/Report: [facility] , Magnesium 1.5 1.8-2.4 mg/dL Performing Lab: see note ML - [facility] LB PROF 14(COMP METB) (Not yet reviewed by provider) Interpretation: Performing Lab: Notes/Report: [facility] , Sodium 140 136-145 mmol/L Potassium 3.8 3.5-5.1 mmol/L Chloride 104 98-107 mmol/L Carbon Dioxide 27.9 21.0-32.0 mmol/L Anion Gap 11.9 Glucose 114 74-106 mg/dL Blood Urea Nitrogen 8.0 7.0-18.0 mg/dL Creatinine 0.83 0.70-1.30 mg/dL Estimated GFR ( Gabrielle >60 >=60 mL/min/1.73m 2 Estimated GFR (Non- Bailey >60 >=60 mL/min/1.73m 2 BUN Creatinine Ratio 9.6 Calcium 9.0 8.5-10.1 mg/dL Bilirubin Total 0.3 0.2-1.0 mg/dL Aspartate Amino Transferase 13 15-37 U/L Alanine Aminotransferase 26 16-63 U/L Alkaline Phosphatase 102 46-116 U/L Total Protein 6.7 6.4-8.2 g/dL Albumin Level 3.0 3.4-5.0 g/dL Globulin 3.7 Albumin Globulin Ratio 0.8 Performing Lab: see note ML - [facility] LB PTT (Not yet reviewed by pro vider) Interpretation: Performing Lab: Notes/Report: [facility] , Partial Thromboplastin Time 23.4 22.3-36.2 sec Performing Lab: see note ML - [facility] LB Prothrombin Time INR (Not ye t reviewed by provider) Interpretation: Performing Lab: Notes/Report: [facility] , Prothrombin Time 10.7 9.0-11.6 sec INR 1.01 DESIRED INR: 2.0-3.0 CONDITIONS NOT LISTED BELOW 2.5-3.5 FOR PROSTHETIC HEART VALVE REPLACEMENT 2.5-3.5 RECURRENT THROMBOSIS Performing Lab: see note ML - [facility] LB Troponin I High Sensitivity (Not yet reviewed by provider) Interpretation: Performing Lab: Notes/Report: [facility] , Troponin I High Sensitivity 12.9 4.0-76.1 pg/mL CUT-OFF POINTS HAVE BEEN ESTABLISHED BASED ON THE FOURTH UNIVERSAL DEFINITION OF MYOCARDIAL INFARCTION. THE UPPER REFERENCE LIMIT (URL) OF TROPONIN, DEFINED THE 99TH PERCENTILE OF cTnI DISTRIBUTION IN A REFERENCE POPULATION, HAS BEEN CONFIRMED THE DECISION THRESHOLD FOR [place] DIAGNOSIS. 99TH PERCENTILE = 76.2 PG/ML NOTE: HIGH-SENSITIVITY TROPONIN ASSAY IS NOT INTENDED TO BE USED IN ISOLATION BUT SHOULD BE INTERPRETED IN CONJUNCTION WITH OTHER DIAGNOSTIC AND CLINICAL INFORMATION. Performing Lab: see note ML - [facility] LB XR chest 2V Reviewed date:08/26/2024 06:38:59 PM Interpretation: Performing Lab: Notes/Report: Source Facility: [facility]-[address] [place] [address] [place] [address] XRay Report Signed Patient: SARAY CORBIN MR#: [id number] : 1960 Acct:[id number] Age/Sex: 63 / M ADM Date: 08/24/24 Loc: [place] 222-[address]: Savage Castillo M.D. Ordering Physician: Ness Wilson M.D. Date of Service: 08/26/24 Procedure(s): XR chest 2V Accession Number(s): [id number] cc: RAFIQ SIERRA D.O.; Ness Wilson M.D. [place] [address] Patient Name: SARAY CORBIN MRN: [id number] date: 1960 Sex: M Assigned Patient Location: [place] Current Patient Location: [place] Accession/Order Number: [id number] Exam Date: 08/26/2024 11:22 Report Date: 08/26/2024 11:25 At the request of: NESS WILSON MD Procedure: XR chest 2V PA AND LATERAL CHEST: CLINICAL HISTORY: Follow up pneumonia COMPARISON: CT 08/24/2024 There is shallow inspiration. Minor scarring or atelectasis is present. There is no focal parenchymal consolidation, effusion or pneumothorax. The cardiac, hilar and mediastinal silhouettes are within normal limits. There is no vascular congestion. The visualized bony structures are osteopenic. Thoracolumbar compression deformities were seen previously. XR/XR chest 2V IMPRESSION: NO ACUTE CARDIOPULMONARY ABNORMALITY. Impression dictated by: Betina Griffin M.D. 08/26/2024 11:25 AM Dictation Location: [place] [address] Electronically authenticated by: [id number] Y Date: 08/26/2024 11:25 Dictated By: Betina Griffin M.D. Signed By: 08/26/24 1136 DD/ 112 TD/TT: Remote Sensing Program Manager: [place] [address] XRay Report Signed Patient: SUSIE CORBIN MR#: [id number] : 1960 Acct:[id number] Age/Sex: 63 / M ADM Date: 08/24/24 Loc: [place] 222-[address]: Mignon Castillo M.D. Ordering Physician: Ness Wilson M.D. Date of Service: 08/26/24 Procedure(s): XR evrnell st 2V Accession Number(s): [id number] cc: RAFIQ SIERRA D.O.; Ness Wilson M.D. [place] [address] Patient Name: SARAY CORBIN MRN: [id number] date: 1960 Sex: M Assigned Patient Location: [place] Current Patient Location: [place] Accession/Order Numb er: [id number] Exam Date: 08/26/2024 11:22 Report Date: 08/26/2024 11:25 At the request of: NESS WILSON MD Procedure: XR chest 2V PA AND LATERAL CHEST: CLINICAL HISTORY: Follow up pneumonia COMPARISON: CT 08/24/2024 There is shallow inspiration. Minor scarring or atelectasis is present. There is no focal parenchymal consolidation, effusion or pneumothorax. The cardiac, hilar and mediastinal silhouettes are within normal limits. There is no vascular congestion. The visualized bony structures are osteopenic. Thoracolumbar compression deformities were seen previously. XR/XR chest 2V IMPRESSION: NO ACUTE CARDIOPULMONARY ABNORMALITY. Impression dictated by: Betina Griffin M.D. 08/26/2024 11:25 AM Dictation Location: [place] [address] Electronically authenticated by: [id number] Y Date: 08/26/2024 11:25 Dictated By: Betina Griffin M.D. Signed By: 08/26/24 1136 DD/ 1125 TD/TT: Remote Sensing Program Manager: Prothrombin Time INR Reviewed date:08/26/2024 06:38:59 PM Interpretation: Performing Lab: Notes/Report: [facility] , Prothrombin Time 11.3 9.0-11.6 sec INR 1.07 DESIRED INR: 2.0-3.0 CONDITIONS NOT LISTED BELOW 2.5-3.5 FOR PROSTHETIC HEART VALVE REPLACEMENT 2.5-3.5 RECURRENT THROMBOSIS Performing Lab: see note ML - [facility] LB PTT Reviewed date:08/26/2024 06:38:59 PM Interpretation: Performing Lab: Notes/Report: [facility] , Partial Thromboplastin Time 25.1 22.3-36.2 sec Performing Lab: see note - [facility] LB PROF 14(COMP METB) Reviewed date:08/26/2024 06:38:59 PM Interpretation: Performing Lab: Notes/Report: [facility] , Sodium 135 136-145 mmol/L Potassium 3.8 3.5-5.1 mmol/L Chloride 104 98-107 mmol/L Carbon Dioxide 23.7 21.0-32.0 mmol/L Anion Gap 11.1 Glucose 136 74-106 mg/dL Blood Urea Nitrogen 9.0 7.0-18.0 mg/dL Creatinine 0.84 0.70-1.30 mg/dL Estimated GFR ( Gabrielle >60 >=60 mL/min/1.73m 2 Estimated GFR (Non- Bailey >60 >=60 mL/min/1.73m 2 BUN Creatinine Ratio 10.7 Calcium 7.9 8.5-10.1 mg/dL Bilirubin Total 0.3 0.2-1.0 mg/dL Aspartate Amino Transferase 18 15-37 U/L Alanine Aminotransferase 32 16-63 U/L Alkaline Phosphatase 98 46-116 U/L Total Protein 6.2 6.4-8.2 g/dL Albumin Level 3.0 3.4-5.0 g/dL Globulin 3.2 Albumin Globulin Ratio 0.9 Performing Lab: see note ML - [facility] LB Reason For Referral No Information Medications Medication SIG (Take, Route, Frequency, Duration) Notes Start Date End Date Status Melatonin 10 MG as directed Orally Active Magnesium 400 MG as directed Orally Active Vitamin B1 100 MG 1 tablet Orally Once a day for 30 day(s) Active amLODIPine Besylate 5 MG 1 tablet Orally Once a day for 30 day(s) Active Folic Acid 1 MG 1 tablet Orally Once a day for 30 day(s) Active Vimpat 100 MG 1 tablet Orally Twic e a day Active QUEtiapine Fumarate 25 MG 1 tablet at be dtime Orally Once a day for 30 day(s) Active Propranolol HCl 20 MG/5ML 5 mL Orally On ce a day for 30 day(s) Active Potassium Chloride 10 MEQ 1 capsule with food Orally Twice a day for 30 day(s) Active Aspir-Low 81 MG 1 tablet Orally Once a day for 30 day(s) Active DULoxetine HCl 60 MG 1 capsule Orally On ce a day for 30 day(s) Active Pantoprazole Sodium 40 MG 1 tablet Orall y Once a day for 30 day(s) Active Social History Tobacco Use: Social History Observation Description Date Details (start date - stop date) Current Smoker NA - NA Tobacco Use/Smoking Question Answer Notes Patient is a current smoker How often do you smoke cigarettes? every day How many cigarettes a day do you smoke? 11-20 Problems Problem Type SNOMED Code ICD Code Onset Dates Problem Status W/U Status Risk Notes Problem Chest pain (24822134) Chest pain (R07.9) Active confirmed Problem Hypertension (64934181) HTN (hypertension) (I10) Active confirmed Problem 63069374 LUZ (obstructive sleep apnea) (G47.33) Active confirmed prior history 15-20 years ago, intol to cpap Problem Alcohol abuse (96577091) Alcohol abuse (F10.10) Active confirmed Problem Dysphagia (39787615) Dysphagia (R13.10) Active confirmed Problem 13480352 Tobacco dependence (F17.200) Active confirmed Problem Pleural effusion (26640827) Recurrent left pleural effusion (J90) Active confirmed Problem Subarachnoid intracranial hemorrhage (32026022) SAH (subarachnoid hemorrhage) (I60.9) Active confirmed Problem Acute alcoholic hepatitis (4016127) Acute alcoholic hepatitis (K70.10) Active confirmed Problem Acute pancreatitis (625204067) Acute pancreatitis, unspecified complication status, unspecified pancreatitis type (K85.90) Active confirmed Plan Of Treatment Pending Test Test Name Order Date BNP 08/27/2024 BNP 08/28/2024 CBC AUTO DIFF 08/28/2024 CBC AUTO DIFF 08/27/2024 MAGNESIUM 08/27/2024 MAGNESIUM 08/28/2024 PROF 14(COMP METB) 08/27/2024 PROF 14(COMP METB) 08/28/2024 PTT 08/28/2024 PTT 08/27/2024 Prothrombin Time INR 08/27/2024 Prothrombin Time INR 08/28/2024 Troponin I High Sensitivity 08/27/2024 Troponin I High Sensitivity 08/28/2024 Future Test Test Name Order Date CT Chest w/o contrast 11/17/2021 Insurance Providers Payer Name Payer Address Payer Phone Subscriber Number Group Number Insured Name Patient Relationship to Insured Coverage Start Date Coverage End Date MEDIC[place] [address] [place] [address] [id number] Saray Corbin Self - patient is the insured [facility] [address] [place] [address] [id number] Saray Corbin Self - patient is the insured Medical (General) History Medical History History ICD Code Acute pancreatitis, unspecif ied complication status, unspecified pancreatitis type K85.90 Recurrent left pleural effusion J90 Alcohol abuse F10.10 Chest pain R07.9 HTN (hypertension) I10 Acute alcoholic hepatitis K70.10 Surgical History Surgery Date(Month/Year) Hernia repair Knee spine surgery deviated septum repair Hospitalization History Reason Date(Month/Year) Chest pain 09/24
--- OUTSIDE RECORDS SUMMARY | 2024-08-28 12:39 | XMS_ITS | Encounter Summary ---
Author Organization [facility] Address [address] [place] [address] Phone Care Team Providers Care Mixing Tumbler Operator Name Role Phone Oswaldo Turpin DO Primary Care Provider [phone] Dione Talavera RN Unavailable Unavailable Dione Talavera RN Unavailable Unavailable Oswaldo Turpin DO Primary Care Provider [phone] Encounter Details Date Type Department Care Team (Late st Contact Info) Description 09/05/2022 Patient Risk Score [facility] [place] Care Management [address] [facility] [address] [place] [address] Social History Tobacco Use Types Packs/Day Years [...] Description 09/16/2024 2:30 PM EDT Appointment [address] [phone] 09/16/2024 3:00 PM EDT Appointment [address] [phone] 09/23/2024 9:30 AM EDT Office Visit [address] [phone] Deepika Dawn, PRICING ACTUARY-STEMHOLE BORER AND TOPPER [address] [facility] [address] [place] [address] documented as of this encounter Visit Diagnoses Not on filedocumented in this encounter Care Teams Mixing Tumbler Operator Relationship Specialty Start Date End Date Oswaldo Turpin DO PCP - General 01/30/19 03/27/24 Oswaldo Turpin DO [address] [place] [address] PCP - General Family Medicine 03/28/24 Dione Talavera, splitter tenderProposal Director 10/02/23 10/17/23 Dione Talavera RN Care Proposal Director 10/24/23 11/23/23 documented as of this encounter
--- OUTSIDE RECORDS SUMMARY | 2024-08-28 12:39 | XMS_ITS | Encounter Summary ---
Author Organization [facility] Address [address] [place] [address] Phone Care Team Providers Care Science Editor Name Role Phone Oswaldo Turpin DO Primary Care Provider [phone] Dione Talavera RN Unavailable Unavailable Dione Talavera RN Unavailable Unavailable Oswaldo Turpin DO Primary Care Provider [phone] Encounter Details Date Type Department Care Team (Late st Contact Info) Description 10/03/2023 Scanned Document [facility] [address] [place] [id number] Scanning, Generic Provider Social History Tobacco Use [...] Info) Description 09/16/2024 2:30 PM EDT Appointment [address] [phone] 09/16/2024 3:00 PM EDT Appointment [address] [place] [phone] 09/23/2024 9:30 AM EDT Office Visit [address] [phone] Deepika Dawn, PERCH MACHINE INSPECTOR-PLATE TAKE OUT WORKER [address] [facility] [address] [place], [place] [phone] documented as of this encounter Visit Diagnoses Not on filedocumented in this encounter Care Teams Science Editor Relationship Specialty Start Date End Date Oswaldo Turpin DO PCP - General 01/30/19 03/27/24 Oswaldo Turpin DO [address] [place] [address] PCP - General Family Medicine 03/28/24 Dione Talavera, oracle programmer analystHealth Unit Supervisor 10/02/23 10/17/23 Dione Talavera, oracle programmer analystHealth Unit Supervisor 10/24/23 11/23/23 documented as of this encounter
--- NOTE | 2024-08-28 13:50 | PM.IMPN1 ---
Progress Note: A&P Assessment and Plan (1) Tachycardia: (2) Acute hypotension: (3) ETOH abuse: (4) COPD (chronic obstructive pulmonary disease): (5) Acute hypoxic respiratory failure: (6) Altered mental status: (7) Respiratory distress: (8) Thrombocythemia: (9) Hypokalemia: (10) Hyperglycemia: (11) Hypomagnesemia: (12) Hypocalcemia: (13) Chronic combined systolic (congestive) and diastolic (congestive) heart failure: (14) Hypertension: (15) Severe sepsis: (16) Sleep apnea: (17) Acute anemia: (18) Coagulopathy: (19) Moderate protein-calorie malnutrition: (20) Coronary artery disease: Plan Lactic acidosis, could be in the setting of severe sepsis as well as dehydration acute on chronic microcytic anemia and symptomatic, likely iron deficiency with no evidence of GI bleeding Delirium? UTI is negative, pt's mental status improving already Acute CVA was ruled out Adrenal insufficiency? - I will stop vancomycin IV, and Will continue with IV Zosyn pending repeat cultures, patient has been afebrile and no leukocytosis on lab review today -Hemoglobin appears to be stable after transfusion yesterday -I will start IV iron while the patient is here for 2 doses until his discharge - CT abdomen pelvis without contrast ordered today and was reviewed. -CXR was negative - SCDs instead of HSQ for DVT prophylaxis -Cortisol level checked, Started pt on Hydrocortisone 0.2 mg daily PO -Pending neuro recommendations -Will continue to follow closely, I discussed the plan with the pt in details, answered all his questions 08/28/2024 patient doing better with fludrocortisone in terms of his blood pressure. Continue dose of another day and if cultures are negative by tomorrow I think he can be discharged. I discussed the plan with the . Appreciate neurology recommendations EEG to be done today and will need to be follow-up in a week. Answered all her questions. Patient is working with PT/OT. Internal Medicine - PN: Subj Subjective Interval history: Patient seen and examined at bedside. No events overnight. Patient is still doing well today. Sitting up in bed with his in the room. No fever no chills. Blood culture negative to date. Labs were insignificant today. His states that he gets tired when he starts to stand up. Exam Narrative Exam Narrative: Common normals: no apparent distress Chest Common normals: inspection of chest normal Respiratory Common normals: normal respiratory effort and no retractions Auscultation: No wheezes no crackles. Good bilateral air entry. Cardio Common normals: regular rhythm and no murmurs; irregular rate Rate: Tachycardic GI Common normals: Normal to inspection, nondistended, normoactive bowel sounds present and soft to palpation; no tenderness on palpation no signs of acute abdomen Extremity Common normals: normal to inspection, full ROM, no clubbing, cyanosis or edema and no calf tenderness Constitutional Vital Signs, click to edit/add: Last Vital Signs Temp 98 F 08/28/24 12:00 Pulse 102 H 08/28/24 13:48 Resp 16 08/28/24 12:00 BP 103/61 08/28/24 12:00 Pulse Ox 94 L 08/28/24 12:00 O2 Del Method Room Air 08/28/24 12:00 O2 Flow Rate 2 08/28/24 08:00 FiO2 60 08/28/24 08:00 Internal Medicine - PN: Obj Da Labs Labs: Laboratory Results - last 24 hr 08/27/24 08/27/24 08/28/24 16:14 20:23 05:00 WBC 8.4 RBC 4.44 L Hgb 10.1 L Hct 33.2 L MCV 74.8 L MCH 22.7 L MCHC 30.4 RDW 21.6 H Plt Count 313 MPV 9.9 Neut % (Auto) 46.1 Lymph % (Auto) 36.3 [place] % (Auto) 8.9 Eos % (Auto) 7.8 H Baso % (Auto) 0.5 Neut # (Auto) 3.9 Lymph # (Auto) 3.1 [place] # (Auto) 0.8 Eos # (Auto) 0.7 Baso # (Auto) 0.0 Abs Immat Gran (auto) 0.03 Imm/Tot Granulo (auto) 0.4 PT 10.7 INR 1.01 APTT 23.4 Sodium 140 Potassium 3.8 Chloride 104 Carbon Dioxide 27.9 Anion Gap 11.9 BUN 8.0 Creatinine 0.83 Est GFR ( Amer) >60 Est GFR (Non-Af Amer) >60 BUN/Creatinine Ratio 9.6 Glucose 114 H Calcium 9.0 Magnesium 1.5 L Total Bilirubin 0.3 AST 13 L ALT 26 Alkaline Phosphatase 102 Troponin I High Sens 12.9 NT-Pro-B Natriuret Pep 747.0 Total Protein 6.7 Albumin 3.0 L Globulin 3.7 Albumin/Globulin Ratio 0.8 POC Glucose 124 H 115 H 08/28/24 11:30 WBC RBC Hgb Hct MCV MCH MCHC RDW Plt Count MPV Neut % (Auto) Lymph % (Auto) [place] % (Auto) Eos % (Auto) Baso % (Auto) Neut # (Auto) Lymph # (Auto) [place] # (Auto) Eos # (Auto) Baso # (Auto) Abs Immat Gran (auto) Imm/Tot Granulo (auto) PT INR APTT Sodium Potassium Chloride Carbon Dioxide Anion Gap BUN Creatinine Est GFR ( Amer) Est GFR (Non-Af Amer) BUN/Creatinine Ratio Glucose Calcium Magnesium Total Bilirubin AST ALT Alkaline Phosphatase Troponin I High Sens NT-Pro-B Natriuret Pep Total Protein Albumin Globulin Albumin/Globulin Ratio POC Glucose 138 H
--- NOTE | 2024-08-28 13:53 | SWNOTE1 ---
WYATT sent updates to [facility] for precert.
[2024-08-28] MEDS: HEPARIN SODIUM (PORCINE) 5,000 UNIT/ML VIAL 5000 UNIT SUBQ ×2 (14:52→23:37)
[2024-08-28 16:23] LABS: Glucometer 115 mg/dL (74-106)
[2024-08-28] MEDS: ATORVASTATIN CALCIUM 40 MG TABLET PO (21:29)
[2024-08-28] MEDS: QUETIAPINE FUMARATE 25 MG TABLET 50 MG PO (21:29)
[2024-08-28] MEDS: 0.9 % SODIUM CHLORIDE 250 ML 10 ML IV (21:35)
[2024-08-28] MEDS: PANTOPRAZOLE SODIUM 40 MG VIAL IV (21:35)
[2024-08-28 21:44] LABS: Glucometer 102 mg/dL (74-106)
[2024-08-29] VITALS (9 sets, daily range): BP systolic 100–108; BP diastolic 67–74; PULSE 96–112; TEMP 36.4–37.3; O2SAT 93–96
[2024-08-29] MEDS: PIPERACILLIN SODIUM/TAZOBACTAM 3.375 GM in 0.9 % SODIUM CHLORIDE 50 ML IV (04:19)
[2024-08-29] MEDS: IPRATROPIUM/ALBUTEROL SULFATE 3 ML AMPUL.NEB IH ×2 (04:36→11:19)
[2024-08-29 06:03] LABS: Basophils Percent Auto 0.4 % (0.2-2.0); Eosinophils Absolute Auto 0.8 10^3/uL (0.0-0.7); Eosinophils Percent Auto 8.5 % (0.9-7.0); Hematocrit 30.9 % (42.0-54.0); Hemoglobin 9.6 g/dL (14.0-18.0); Immature Granulocytes Abs Auto 0.03 10^3/uL (0.00-0.03); Immature Granulocytes Pct Auto 0.3 % (0.0-0.5); Lymphocytes Percent Auto 32.6 % (20.5-60.0); Mean Corpuscular HGB Conc 31.1 g/dL (29.9-35.2); Mean Corpuscular Hemoglobin 23.2 pg (25.9-34.0); Mean Corpuscular Volume 74.6 fL (80.0-94.0); Monocytes Absolute Auto 0.9 10^3/uL (0.3-0.8); Monocytes Percent Auto 9.6 % (1.7-12.0); Neutrophils Absolute Auto 4.5 10^3/uL (1.4-6.5); Neutrophils Percent Auto 48.6 % (43.0-75.0); Platelet Count 279 10^3/uL (150-450); Red Blood Count 4.14 10^6/uL (4.70-6.10); White Blood Count 9.2 10^3/uL (4.0-11.0)
[2024-08-29 06:21] LABS: Alanine Aminotransferase 25 U/L (16-63); Albumin Globulin Ratio 0.9; Alkaline Phosphatase 92 U/L (46-116); Anion Gap 12.9; Aspartate Amino Transferase 14 U/L (15-37); Bilirubin Total 0.3 mg/dL (0.2-1.0); Calcium 8.9 mg/dL (8.5-10.1); Carbon Dioxide 27.2 mmol/L (21.0-32.0); Chloride 104 mmol/L (98-107); Estimated GFR (African America >60 (>=60 mL/min/1.73m^2); Estimated GFR (Non-African Ame >60 (>=60 mL/min/1.73m^2); Globulin 3.3 g/dL; Glucose 118 mg/dL (74-106); Potassium 3.1 mmol/L (3.5-5.1); Sodium 141 mmol/L (136-145); Total Protein 6.3 g/dL (6.4-8.2)
--- NOTE | 2024-08-29 06:23 | P.DS_ITS ---
DS: Providers Provider Date of admission: 08/24/24 18:26 Primary care physician: RAFIQ SIERRA DO Consults: 08/24/24 Consult to Dietitian Routine Reason for consultation: nutrition needs Has provider been notified: No 08/24/24 18:18 Consult to Pharmacy Routine Consulting Provider: Reason for consultation: Please [place] me when Med Rec is Updated Has provider been notified: No Occupational Therapy Eval and Treat Routine Reason for consultation: Only if needed for Rehab Has provider been notified: No Physical Therapy Eval and Treat Routine Reason for consultation: Eval and Treat Has provider been notified: No 08/26/24 11:34 Consult to TeleNeurology Routine Reason for consultation: confusion DS: Diagnosis Discharge Diagnosis (1) Tachycardia: (2) Acute hypotension: (3) ETOH abuse: (4) COPD (chronic obstructive pulmonary disease): (5) Acute hypoxic respiratory failure: (6) Altered mental status: (7) Respiratory distress: (8) Thrombocythemia: (9) Hypokalemia: (10) Hyperglycemia: (11) Hypomagnesemia: (12) Hypocalcemia: (13) Chronic combined systolic (congestive) and diastolic (congestive) heart failure: (14) Hypertension: (15) Severe sepsis: (16) Sleep apnea: (17) Acute anemia: (18) Coagulopathy: (19) Moderate protein-calorie malnutrition: (20) Coronary artery disease: DS: Summary Time Spent with Patient Time attestation: Total time spent providing and/or coordinating discharge services: Exam Constitutional Vital Signs, click to edit/add: Last Vital Signs Temp 97.6 F 08/29/24 04:00 Pulse 99 H 08/29/24 05:55 Resp 16 08/29/24 04:36 BP 100/67 08/29/24 04:00 Pulse Ox 95 08/29/24 04:36 O2 Del Method Room Air 08/29/24 04:36 O2 Flow Rate 2 08/28/24 08:00 FiO2 60 08/28/24 08:00 DS: Data Data Completed and Pending Labs on day of discharge: Labs from last 24 hours 08/29/24 08/28/24 08/28/24 05:55 21:33 16:11 WBC 9.2 RBC 4.14 L Hgb 9.6 L Hct 30.9 L MCV 74.6 L MCH 23.2 L MCHC 31.1 RDW 22.0 H Plt Count 279 MPV 10.0 Neut % (Auto) 48.6 Lymph % (Auto) 32.6 [place] % (Auto) 9.6 Eos % (Auto) 8.5 H Baso % (Auto) 0.4 Neut # (Auto) 4.5 Lymph # (Auto) 3.0 [place] # (Auto) 0.9 H Eos # (Auto) 0.8 H Baso # (Auto) 0.0 Abs Immat Gran (auto) 0.03 Imm/Tot Granulo (auto) 0.3 Sodium 141 Potassium 3.1 L Chloride 104 Carbon Dioxide 27.2 Anion Gap 12.9 BUN 9.0 Creatinine 0.75 Est GFR ( Amer) >60 Est GFR (Non-Af Amer) >60 BUN/Creatinine Ratio 12.0 Glucose 118 H Calcium 8.9 Total Bilirubin 0.3 AST 14 L ALT 25 Alkaline Phosphatase 92 Total Protein 6.3 L Albumin 3.0 L Globulin 3.3 Albumin/Globulin Ratio 0.9 POC Glucose 102 115 H 08/28/24 11:30 WBC RBC Hgb Hct MCV MCH MCHC RDW Plt Count MPV Neut % (Auto) Lymph % (Auto) [place] % (Auto) Eos % (Auto) Baso % (Auto) Neut # (Auto) Lymph # (Auto) [place] # (Auto) Eos # (Auto) Baso # (Auto) Abs Immat Gran (auto) Imm/Tot Granulo (auto) Sodium Potassium Chloride Carbon Dioxide Anion Gap BUN Creatinine Est GFR ( Amer) Est GFR (Non-Af Amer) BUN/Creatinine Ratio Glucose Calcium Total Bilirubin AST ALT Alkaline Phosphatase Total Protein Albumin Globulin Albumin/Globulin Ratio POC Glucose 138 H Preliminary micro results at discharge 08/24/24 14:01 Blood Culture Result 2 - Preliminary Blood NO GROWTH AT 36-48 HOURS. FINAL TO FOLLOW. 08/24/24 13:55 Blood Culture Result 1 - Preliminary Blood NO GROWTH AT 36-48 HOURS. FINAL TO FOLLOW. Discharge Plan Discharge Discharge Medications: No Action atorvastatin 40 mg tablet 40 mg PO DAILY acetaminophen 325 mg capsule 650 mg PO Q6H PRN (Reason: fever or pain) dapagliflozin propanediol 10 mg tablet 10 mg PO DAILY Entresto 24-26 mg tablet 1 tab PO BID folic acid 1 mg tablet 1 mg PO DAILY insulin lispro 100 unit/mL insulin pen 1 sliding scale dose SUBCUT ACHS metoprolol tartrate 25 mg tablet 25 mg PO BID ondansetron HCl 4 mg tablet 4 mg PO Q6H PRN (Reason: nausea and vomiting) pantoprazole 40 mg tablet,delayed release (DR/EC) 40 mg PO DAILY quetiapine 50 mg tablet 50 mg PO DAILY spironolactone [Aldactone] 25 mg tablet 12.5 mg PO DAILY thiamine HCl (vitamin B1) 100 mg capsule 100 mg PO DAILY fluconazole [Diflucan] 100 mg tablet 100 mg PO DAILY heparin (porcine) 5,000 unit/mL (1 mL) cartridge 5,000 unit subcut Q12H nitroglycerin 0.4 mg tablet, sublingual 0.4 mg sublingual Q5M PRN (Reason: chest pain) Rx Instructions: do not exceed 3 doses per episode Print Language: Nepali
[2024-08-29 06:32] LABS: Magnesium 1.2 mg/dL (1.8-2.4)
[2024-08-29 07:27] LABS: Glucometer 123 mg/dL (74-106)
[2024-08-29] MEDS: THIAMINE MONONITRATE (VIT B1) 100 MG TABLET PO (08:35)
[2024-08-29] MEDS: MAGNESIUM OXIDE 400 MG TABLET PO (08:35)
[2024-08-29] MEDS: SACUBITRIL/VALSARTAN 24 MG-26 MG TABLET 1 TAB PO (08:35)
[2024-08-29] MEDS: ENSURE ORIGINAL 237 ML BOTTLE PO (08:35)
[2024-08-29] MEDS: FOLIC ACID 1 MG TABLET PO (08:35)
[2024-08-29] MEDS: FLUDROCORTISONE ACETATE 0.1 MG TABLET 0.2 MG PO (08:35)
[2024-08-29] MEDS: POTASSIUM CHLORIDE 10 MEQ ER TABLET PO (08:36)
[2024-08-29] MEDS: HEPARIN SODIUM (PORCINE) 5,000 UNIT/ML VIAL 5000 UNIT SUBQ (08:36)
--- NOTE | 2024-08-29 08:36 | CM.NOTE ---
Rounds made with Dr. Andrew, BP stable this AM. Discussed with pt am lab work and will adjust medications for electrolyte findings.
--- NOTE | 2024-08-29 08:40 | PM.PN ---
Progress Note: Subjective Subjective Interval history: Patient seen and examined at bedside. No events overnight. Patient is still doing well today. Sitting up in bed with his in the room. No fever no chills. Blood culture negative to date. Labs were insignificant today. His states that he gets tired when he starts to stand up. Exam Constitutional Vital Signs, click to edit/add: Last Vital Signs Temp 99.1 F 08/29/24 08:38 Pulse 110 H 08/29/24 08:38 Resp 18 08/29/24 08:38 BP 108/74 08/29/24 08:38 Pulse Ox 93 L 08/29/24 08:38 O2 Del Method Room Air 08/29/24 08:38 O2 Flow Rate 2 08/28/24 08:00 FiO2 60 08/28/24 08:00 Progress Note: Objective Labs Labs: Short CBC 08/29/24 Range/Units 05:55 WBC 9.2 (4.0-11.0) 10^3/uL Hgb 9.6 L (14.0-18.0) g/dL Hct 30.9 L (42.0-54.0) % Plt Count 279 (150-450) 10^3/uL BMP 08/29/24 05:55 Sodium 141 Potassium 3.1 L Chloride 104 Carbon Dioxide 27.2 BUN 9.0 Creatinine 0.75 Glucose 118 H Calcium 8.9 Liver Function 08/29/24 Range/Units 05:55 Total Bilirubin 0.3 (0.2-1.0) mg/dL AST 14 L (15-37) U/L ALT 25 (16-63) U/L Alkaline Phosphatase 92 (46-116) U/L Albumin 3.0 L (3.4-5.0) g/dL Progress Note: A&P Assessment and Plan (1) Tachycardia: (2) Acute hypotension: (3) ETOH abuse: (4) COPD (chronic obstructive pulmonary disease): (5) Acute hypoxic respiratory failure: (6) Altered mental status: (7) Respiratory distress: (8) Thrombocythemia: (9) Hypokalemia: (10) Hyperglycemia: (11) Hypomagnesemia: (12) Hypocalcemia: (13) Chronic combined systolic (congestive) and diastolic (congestive) heart failure: (14) Hypertension: (15) Severe sepsis: (16) Sleep apnea: (17) Acute anemia: (18) Coagulopathy: (19) Moderate protein-calorie malnutrition: (20) Coronary artery disease:
--- NOTE | 2024-08-29 09:48 | SWNOTE1 ---
WYATT messaged Lamont at [facility] to see if pt can go there today. Lamont had reached out to [facility] (there precert department) last night to see if they could get an extension instead of starting precert over. Lamont did stated that pt can come today, but she will need to know soon if he is discharging today. WYATT messaged Dr. Andrew.
[2024-08-29] MEDS: MAGNESIUM SULFATE IN WATER 4 GM/100 ML PIGGYBACK IV (10:00)
--- NOTE | 2024-08-29 10:12 | P.DS_ITS ---
DS: Providers Provider Date of admission: 08/24/24 18:26 Primary care physician: RAFIQ SIERRA DO Consults: 08/24/24 Consult to Dietitian Routine Reason for consultation: nutrition needs Has provider been notified: No 08/24/24 18:18 Consult to Pharmacy Routine Consulting Provider: Reason for consultation: Please [place] me when Med Rec is Updated Has provider been notified: No Occupational Therapy Eval and Treat Routine Reason for consultation: Only if needed for Rehab Has provider been notified: No Physical Therapy Eval and Treat Routine Reason for consultation: Eval and Treat Has provider been notified: No 08/26/24 11:34 Consult to TeleNeurology Routine Reason for consultation: confusion DS: Diagnosis Discharge Diagnosis (1) Tachycardia: (2) Acute hypotension: (3) ETOH abuse: (4) COPD (chronic obstructive pulmonary disease): (5) Acute hypoxic respiratory failure: (6) Altered mental status: (7) Respiratory distress: (8) Thrombocythemia: (9) Hypokalemia: (10) Hyperglycemia: (11) Hypomagnesemia: (12) Hypocalcemia: (13) Chronic combined systolic (congestive) and diastolic (congestive) heart failure: (14) Hypertension: (15) Severe sepsis: (16) Sleep apnea: (17) Acute anemia: (18) Coagulopathy: (19) Moderate protein-calorie malnutrition: (20) Coronary artery disease: Plan Admission findings: Altered mental status, sinus tachycardia, respiratory distress, significant hypotension with a blood pressure of 76/55 with a MAP of 62, acute hypoxia with O2 sat of 86%, and anemia with hemoglobin of 8 and hypokalemia with positive lactic acidosis consistent with severe sepsis Severe sepsis-and at the time of discharge Severe hypotension-improving at the time of discharge, Acute hypoxic respiratory failure-requiring BiPAP ventilation--resolved Untreated sleep apnea-will use CPAP while he is here, may need outpatient sleep study Acute anemia-stable Coagulopathy-stable History of chronic combined congestive heart failure-restart Invokana in place of Farxiga, restart Entresto, blood pressure improved today Diabetes mellitus according to his medication list on insulin-insulin sliding scale-improved to normal Hypertension by history-restarting Invokana in place of Farxiga and Entresto, adding blood pressure medications back slowly as patient was severely hypotensive this may be related to over medications History of alcohol abuse-in the remote past-can remove seizure precautions and CIWA scale monitoring Thrombocythemia-improved to normal Hypokalemia-still low this morning, increase oral supplementation and IV bolus Severe hypomagnesemia-improved to normal today, start oral agent supplementation Hypocalcemia-even when corrected for hypoalbuminemia still is hypocalcemic-add supplement Coronary artery disease-status post stenting-no chest pain currently and troponin is negative Moderate to severe protein calorie malnutrition-diet supplement Admission status: Patient with severe hypotension, tachycardia, acute hypoxia, lactic acidosis consistent with sepsis-medically necessary treatment will span 2 midnights. Inpatient status DS: Summary Hospital Course Hospital Course: Patient mated with altered mental status, evidence for sepsis, treated with IV antibiotics, acute hypoxia requiring BiPAP ventilation initially, that is improved, and have low cortisol levels, was placed on fludrocortisone and blood pressures are improving, possible Aric's, will need further workup as an outpatient, could also be related to stress reaction from the sepsis. Mental status is slowly improving, he is an excellent rehabilitation candidate, medically stable for discharge to rehab today, follow-up with PCP at discharge from rehab Time Spent with Patient Time attestation: Total time spent providing and/or coordinating discharge services: Exam Constitutional Vital Signs, click to edit/add: Last Vital Signs Temp 99.1 F 08/29/24 08:38 Pulse 103 H 08/29/24 09:52 Resp 18 08/29/24 08:38 BP 108/74 08/29/24 08:38 Pulse Ox 93 L 08/29/24 08:38 O2 Del Method Room Air 08/29/24 08:38 O2 Flow Rate 2 08/28/24 08:00 FiO2 60 08/28/24 08:00 Documenting provider has reviewed patient's vital signs: yes Common normals: no apparent distress Chest Common normals: inspection of chest normal Respiratory Auscultation: rhonchi Cardio Common normals: regular rate, regular rhythm and no murmurs GI Common normals: Normal to inspection, nondistended, normoactive bowel sounds present, soft to palpation and non-tender Extremity Common normals: normal to inspection, full ROM and no clubbing, cyanosis or edema DS: Data Data Completed and Pending Labs on day of discharge: Labs from last 24 hours 08/29/24 08/29/24 08/28/24 07:25 05:55 21:33 WBC 9.2 RBC 4.14 L Hgb 9.6 L Hct 30.9 L MCV 74.6 L MCH 23.2 L MCHC 31.1 RDW 22.0 H Plt Count 279 MPV 10.0 Neut % (Auto) 48.6 Lymph % (Auto) 32.6 [place] % (Auto) 9.6 Eos % (Auto) 8.5 H Baso % (Auto) 0.4 Neut # (Auto) 4.5 Lymph # (Auto) 3.0 [place] # (Auto) 0.9 H Eos # (Auto) 0.8 H Baso # (Auto) 0.0 Abs Immat Gran (auto) 0.03 Imm/Tot Granulo (auto) 0.3 Sodium 141 Potassium 3.1 L Chloride 104 Carbon Dioxide 27.2 Anion Gap 12.9 BUN 9.0 Creatinine 0.75 Est GFR ( Amer) >60 Est GFR (Non-Af Amer) >60 BUN/Creatinine Ratio 12.0 Glucose 118 H Calcium 8.9 Magnesium 1.2 L Total Bilirubin 0.3 AST 14 L ALT 25 Alkaline Phosphatase 92 Total Protein 6.3 L Albumin 3.0 L Globulin 3.3 Albumin/Globulin Ratio 0.9 POC Glucose 123 H 102 08/28/24 08/28/24 16:11 11:30 WBC RBC Hgb Hct MCV MCH MCHC RDW Plt Count MPV Neut % (Auto) Lymph % (Auto) [place] % (Auto) Eos % (Auto) Baso % (Auto) Neut # (Auto) Lymph # (Auto) [place] # (Auto) Eos # (Auto) Baso # (Auto) Abs Immat Gran (auto) Imm/Tot Granulo (auto) Sodium Potassium Chloride Carbon Dioxide Anion Gap BUN Creatinine Est GFR ( Amer) Est GFR (Non-Af Amer) BUN/Creatinine Ratio Glucose Calcium Magnesium Total Bilirubin AST ALT Alkaline Phosphatase Total Protein Albumin Globulin Albumin/Globulin Ratio POC Glucose 115 H 138 H Preliminary micro results at discharge 08/24/24 14:01 Blood Culture Result 2 - Preliminary Blood NO GROWTH AT 36-48 HOURS. FINAL TO FOLLOW. 08/24/24 13:55 Blood Culture Result 1 - Preliminary Blood NO GROWTH AT 36-48 HOURS. FINAL TO FOLLOW. Discharge Plan Discharge Disposition: Xfer SNF Discharge Medications: New magnesium oxide 400 mg (241.3 mg magnesium) Tablet 400 mg PO BID Qty: 60 0RF fludrocortisone 0.1 mg Tablet 0.2 mg PO BID Qty: 60 11RF Continued atorvastatin 40 mg tablet 40 mg PO DAILY acetaminophen 325 mg capsule 650 mg PO Q6H PRN (Reason: fever or pain) Entresto 24-26 mg tablet 1 tab PO BID folic acid 1 mg tablet 1 mg PO DAILY insulin lispro 100 unit/mL insulin pen 1 sliding scale dose SUBCUT ACHS ondansetron HCl 4 mg tablet 4 mg PO Q6H PRN (Reason: nausea and vomiting) pantoprazole 40 mg tablet,delayed release (DR/EC) 40 mg PO DAILY quetiapine 50 mg tablet 50 mg PO DAILY thiamine HCl (vitamin B1) 100 mg capsule 100 mg PO DAILY heparin (porcine) 5,000 unit/mL (1 mL) cartridge 5,000 unit subcut Q12H nitroglycerin 0.4 mg tablet, sublingual 0.4 mg sublingual Q5M PRN (Reason: chest pain) Rx Instructions: do not exceed 3 doses per episode Discontinued dapagliflozin propanediol 10 mg tablet 10 mg PO DAILY metoprolol tartrate 25 mg tablet 25 mg PO BID spironolactone [Aldactone] 25 mg tablet 12.5 mg PO DAILY fluconazole [Diflucan] 100 mg tablet 100 mg PO DAILY Print Language: Czech Forms: Portal Instructions
--- NOTE | 2024-08-29 10:44 | SWNOTE1 ---
Dr. Andrew messaged back and pt can discharge today. WYATT did call and let her know and she does still want him to go back to [facility] for more therapy. SW to update her with time. WYATT faxed dc med rec, dc summary, and other updates to [facility].
--- NOTE | 2024-08-29 10:45 | SWNOTE1 ---
Called [facility] for transportation for pt d/c. [facility] can product picker pt between 12-12:30. SW notified pt's nurse, , and the [place] of product picker time.
--- NOTE | 2024-08-29 11:15 | PC.NURSE ---
report given to [facility] at [facility]
== END 2024-08-29 12:05 | DRG 871 ==
LOC: ER 13:43 → MS 08-25 17:57
PROVIDERS: Registered Nurse; Student in an Organized Health Care Education/Training Program; Admitting Provider Family Medicine; Emergency Provider Student in an Organized Health Care Education/Training Program; PCP Family Medicine; Visit Provider Family Medicine
DX: A41.9 Sepsis, unspecified organism (principal); J96.21 Acute and chronic respiratory failure with hypoxia; I50.42 Chronic combined systolic (congestive) and diastolic (congestive) heart failure; D68.9 Coagulation defect, unspecified; E44.0 Moderate protein-calorie malnutrition; R65.20 Severe sepsis without septic shock; E87.6 Hypokalemia; E86.9 Volume depletion, unspecified; I95.9 Hypotension, unspecified; E86.0 Dehydration; I11.0 Hypertensive heart disease with heart failure; D69.6 Thrombocytopenia, unspecified; I25.10 Atherosclerotic heart disease of native coronary artery without angina pectoris; Z95.5 Presence of coronary angioplasty implant and graft; E11.65 Type 2 diabetes mellitus with hyperglycemia; E83.42 Hypomagnesemia; E83.51 Hypocalcemia; G47.30 Sleep apnea, unspecified; Z79.4 Long term (current) use of insulin; D50.9 Iron deficiency anemia, unspecified; F10.11 Alcohol abuse, in remission; K21.9 Gastro-esophageal reflux disease without esophagitis; Z90.49 Acquired absence of other specified parts of digestive tract; Z68.21 Body mass index [BMI] 21.0-21.9, adult; E78.5 Hyperlipidemia, unspecified; Z87.820 Personal history of traumatic brain injury; E03.9 Hypothyroidism, unspecified; K58.9 Irritable bowel syndrome, unspecified; R56.9 Unspecified convulsions; F17.210 Nicotine dependence, cigarettes, uncomplicated; R41.82 Altered mental status, unspecified
CPT/HCPCS: 36415; 36430; 36600; 70450; 71046; 71275; 72125; 74176; 74177; 80053; 80202; 81003; 82533; 82607; 82728; 82746; 82805; 82948; 83540; 83550; 83605; 83735; 83880; 84132; 84436; 84443; 84484; 85025; 85027; 85610; 85730; 86850; 86900; 86901; 86923; 87040; 87070; 87205; 93005; 94640; 94660; 94667; 94668; 94761; 95819; 96361; 96365; 96366; 96368; 97110; 97162; 97165; 97530; 97535; 99285; G0328; J1100; J1644; J1756; J1938; J2543; J3370; J3475; J3480; P9016; Q9967